=== PATIENT | male | born 1960 | race Caucasian/White ===

== ENCOUNTER 2020-03-14 05:11 | Emergency (ER) | payer MEDICAID ==
[2020-03-14] MEDS ORDERED: NA CHLORIDE 0.9% 1,000 ML ONE (05:52)
[2020-03-14] MEDS ORDERED: LIDOCAINE VISCOUS 2% SOLN 15 ML UDC ONE (05:56)
[2020-03-14 06:00] LABS: Absolute Lymphocytes (CBC) 1.5 K/uL (0.7-4.9); Basophils % 0.7 % (0-1.3); Hematocrit 37.5 % (39.6-49.0); MPV 8.7 fL (7.6-11.3); RBC Red Blood Cell Count 4.21 M/uL (4.33-5.43)
[2020-03-14 06:22] LABS: Urine Blood 3+ (NEG); Urine Glucose NEGATIVE (NEG); Urine Protein 3+ (NEG); Urine Specific Gravity >1.030 (1.005-1.030)
[2020-03-14 06:27] LABS: Potassium 4.1 mmol/L (3.5-5.1)
[2020-03-14 06:38] LABS: Albumin 3.5 g/dL (3.4-5.0); Bilirubin Direct 0.1 mg/dL (0-0.2); Bilirubin Total 0.6 mg/dL (0.2-1.0); Protein, Total 8.2 g/dL (6.4-8.2)
[2020-03-14] MEDS ORDERED: CEFTRIAXONE/SWI 1gm 1 GM/10 ML SYR ONE (06:47)
[2020-03-14 07:18] LABS: CKMB Creatine Kinase MB < 1.0 ng/mL (0.3-3.6); Creatine Phosphokinase 59 U/L (39-308); Troponin (Emerg Dept Use Only) < 0.02 ng/mL (0.0-0.045)
--- NOTE | 2020-03-14 07:40 | ER ---
Nurse's Notes Formerly [facility] Name: Taye Lagunas Age: 59 yrs Sex: Male : 1960 Arrival Date: 03/14/2020 Time: 05:13 Bed 2 Private MD: Diagnosis: Unspecified kidney failure-insufficency;Dementia in other diseases classified elsewhere;Type 2 diabetes mellitus;Displacement of urinary (indwelling) catheter-replaced Presentation: 03/14 05:15 Chief complaint: EMS states: pulled his Lang catheter last night. red fluid noted on rr5 the floor when we arrived. 05:15 Coronavirus screen: Proceed with normal triage. Ebola Screen: Unable to complete the rr5 Ebola screening because: dementia. Initial Sepsis Screen: Does the patient meet any 2 criteria? No. Patient's initial sepsis screen is negative. Does the patient have a suspected source of infection? No. Patient's initial sepsis screen is negative. Risk Assessment: Do you want to hurt yourself or someone else? Unable to obtain. Onset of symptoms was March 14, 2020. Transition of care: patient was received from another setting of care (long-term care facility), [facility]. 05:15 Method Of Arrival: EMS: [facility] rr5 05:15 Acuity: MADELINE 3 rr5 Historical: - Allergies: 05:00 No Known Allergies; rr5 - Home Meds: 05:00 amlodipine oral [Active]; Aspirin Oral [Active]; donepezil oral oral [Active]; rr5 duloxetine oral oral [Active]; Hydralazine Oral [Active]; Lipitor Oral [Active]; Lyrica Oral [Active]; nicotine patch [Active]; Novolog Sub-Q [Active]; Pyridoxine Oral [Active]; quetiapine oral oral [Active]; tamsulosin oral oral [Active]; Tramadol Oral [Active]; - PMHx: 05:00 Anxiety; restlessness and aggitation; cerebral infarction; Diabetes - IDDM; chronic rr5 kidney disease; vitamin b deficiency; Dementia; Depression; acquired coagulation factor deficiency; - Immunization history:: Adult Immunizations unknown. - Social history:: Smoking status: unknown. - Family history:: not pertinent. Screenin:37 Abuse screen: Denies threats or abuse. Denies injuries from another. Nutritional rr5 screening: No deficits noted. Tuberculosis screening: No symptoms or risk factors identified. Fall Risk Fall in past 12 months (25 points). Secondary diagnosis (15 points) dementia, impaired mobility, IV access (20 points). Mental Status- Overestimates/Forgets Limitations (15 pts.). Total Mcintosh Fall Scale indicates High Risk Score (45 or more points). Fall prevention measures have been instituted. Side Rails Up X 2 Placed Close to Nursing Station Frequent Obs/Assessments Occuring As available patient and family educated on Fall Prevention Program and Strategies. Assessment: 05:15 General: Appears in no apparent distress. Behavior is agitated, uncooperative, dementia rr5 patient. 05:15 Pain: Unable to use pain scale. Patient appears agitated. Neuro: Level of Consciousness rr5 is awake, confused, Oriented to person, dementia patient. Cardiovascular: Capillary refill < 3 seconds Patient's skin is warm and dry. Respiratory: Airway is patent Respiratory effort is even, unlabored, Respiratory pattern is regular, symmetrical. GI: No signs and/or symptoms were reported involving the gastrointestinal system. : Parent/caregiver report the patient having lang pulled by the patient. EENT: No signs and/or symptoms were reported regarding the EENT system. Derm: Skin is fragile, is thin, Skin temperature is warm. Musculoskeletal: Capillary refill < 3 seconds. 05:40 Reassessment: spoke to [facility] "yari" she stated patient had a Lang catheter rr5 because of dysuria came in the facility last february 28, 2020 with catheter in placed. the reason why the patient send in out facility because he pulled out the Lang catheter and patient became aggressive tonight. 06:10 Reassessment: Patient appears in no apparent distress at this time. No changes from rr5 previously documented assessment. patient keeps on shouting he is thirsty, needs attended, side rail secured and locked. 07:00 Reassessment: Patient appears in no apparent distress at this time. positive BM soft rr5 brown in color moderate in amount, diaper changed. PO challenge done , no nausea and no vomiting. 07:30 General: Appears in no apparent distress. comfortable, Behavior is agitated. Neuro: sv Level of Consciousness is awake, confused, Oriented to person. Respiratory: Respiratory effort is even, unlabored, Respiratory pattern is regular, symmetrical. 08:13 Reassessment: Siena from [facility] stated she is trying to get transportation for sv the pt to go back. 08:40 Reassessment: Siena called back and stated that they have no way to transport him. sv 09:05 Reassessment: Attempted to call Siena at [facility] to inform her wheelchair sv van is coming to take the pt but there was no answer. 09:30 Reassessment: Attempted to call [facility] again to inform pt will be coming by wheelchair van, no answer. 09:32 Reassessment: EMS here to take pt to [place]. sv Vital Signs: 05:15 BP 160 / 76; Pulse 81; Resp 20; Temp 98.5; Pulse Ox 100% ; Weight 95 kg; rr5 06:04 BP 168 / 85; Pulse 85; Resp 19; Pulse Ox 98% ; rr5 07:20 BP 142 / 88; Pulse 88; Resp 16; Pulse Ox 98% ; sv 09:15 BP 141 / 78; Pulse 86; Resp 16; Pulse Ox 99% ; sv ED Course: 05:00 Arm band placed on. rr5 05:13 Patient arrived in ED. cl3 05:16 Nash Raines, RN is Primary Nurse. rr5 05:21 Triage completed. rr5 05:43 Clarence Padgett MD is Attending Physician. amie 05:47 Inserted saline lock: 20 gauge in right antecubital area, using aseptic technique. mt Blood collected. 05:50 Patient has correct armband on for positive identification. Bed in low position. Call rr5 light in reach. Side rails up X2. Pulse ox on. NIBP on. 05:55 Lang cath inserted, using sterile technique, 16 Fr., by tn, balloon inflated, to rr5 gravity drainage, urine specimen collected. 06:10 EKG done, by ED staff, reviewed by Clarence Padgett MD. rr5 07:40 Matias Calderon MD is Referral Physician. amie 07:40 Dennis Moore MD is Referral Physician. amie 07:55 transfer transportation to receiving facility. sv 09:14 Primary Nurse role handed off by Nash Raines, RN sv 09:14 Natividad Billings, ANTHONY is Primary Nurse. sv 09:27 No provider procedures requiring assistance completed. IV discontinued, intact, sv bleeding controlled, No redness/swelling at site. Pressure dressing applied. Administered Medications: 06:00 Drug: NS 0.9% 500 ml Route: IV; Rate: bolus; Site: right antecubital; rr5 06:50 Follow up: Response: No adverse reaction; IV Status: Completed infusion; IV Intake: rr5 500ml 06:46 Drug: Rocephin 1 grams Route: IV; Rate: per protocol; Site: right antecubital; rr5 07:12 Follow up: Response: No adverse reaction; IV Status: Completed infusion; IV Intake: [id number] 07:03 Drug: NS 0.9% 500 ml Route: IV; Rate: bolus; Site: right antecubital; rr5 07:30 Follow up: Response: No adverse reaction; IV Status: Completed infusion; IV Intake: sv 500ml Intake: 06:00 PO: 450ml (Water); Total: 450ml. rr5 06:50 IV: 500ml; Total: 950ml. rr5 06:55 PO: 300ml (Water); Total: 1250ml. rr5 07:12 IV: 10ml; Total: 1260ml. rr5 07:30 IV: 500ml; Total: 1760ml. sv Output: 07:00 Stool: 1 (Formed Stool) ; Total: 0ml. rr5 Outcome: 07:40 Discharge ordered by . amie 07:42 Discharged to senior living. Report called to Siena at [facility] sv 07:42 Condition: stable 07:42 Discharge instructions given to senior living, Instructed on discharge instructions, follow up and referral plans. Demonstrated understanding of instructions, follow-up care. 09:33 Patient left the ED. sv Signatures: Natividad Billings, RN RN Clarence Breen MD MD cha Thompson, [place] Nash Evans RN RN rrTin Canseco cl3
--- NOTE | 2020-03-14 07:41 | EDPHYS ---
Physician Documentation [facility] Name: Taye Lagunas Age: 59 yrs Sex: Male : 1960 Arrival Date: 03/14/2020 Time: 05:13 Bed 2 Private MD: EDA Physician Clarence Padgett HPI: 03/14 05:45 This 59 yrs old Male presents to ER via EMS with complaints of Problem With amie Urinary Catheter. 05:45 The patient presents with a Castillo catheter problem, was pulled out accidentally. Onset: amie The symptoms/episode began/occurred 1 day(s) ago. Modifying factors: The symptoms are alleviated by nothing, the symptoms are aggravated by nothing. in group home, hx of dementia, no head trauma. Associated signs and symptoms: Pertinent positives: thirsty. Severity of symptoms: At their worst the symptoms were mild, in the emergency department the symptoms are unchanged. Severity of symptoms: At their worst the symptoms were mild in the emergency department the symptoms are unchanged. It is unknown whether or not the patient has had similar symptoms in the past. Historical: - Allergies: 05:00 No Known Allergies; rr5 - Home Meds: 05:00 amlodipine oral [Active]; Aspirin Oral [Active]; donepezil oral oral [Active]; rr5 duloxetine oral oral [Active]; Hydralazine Oral [Active]; Lipitor Oral [Active]; Lyrica Oral [Active]; nicotine patch [Active]; Novolog Sub-Q [Active]; Pyridoxine Oral [Active]; quetiapine oral oral [Active]; tamsulosin oral oral [Active]; Tramadol Oral [Active]; - PMHx: 05:00 Anxiety; restlessness and aggitation; cerebral infarction; Diabetes - IDDM; chronic rr5 kidney disease; vitamin b deficiency; Dementia; Depression; acquired coagulation factor deficiency; - Immunization history:: Adult Immunizations unknown. - Social history:: Smoking status: unknown. - Family history:: not pertinent. ROS: 05:45 Constitutional: Negative for fever, chills, and weight loss, ENT: Negative for injury, amie pain, and discharge, Neck: Negative for injury, pain, and swelling, Cardiovascular: Negative for chest pain, palpitations, and edema, Respiratory: Negative for shortness of breath, cough, wheezing, and pleuritic chest pain, Abdomen/GI: Negative for abdominal pain, nausea, vomiting, diarrhea, and constipation, Back: Negative for injury and pain, : Negative for injury, bleeding, discharge, and swelling, MS/Extremity: Negative for injury and deformity, Skin: Negative for injury, rash, and discoloration, Psych: Negative for depression, anxiety, suicide ideation, homicidal ideation, and hallucinations, Allergy/Immunology: Negative for hives, rash, and allergies, Endocrine: Negative for neck swelling, polydipsia, polyuria, polyphagia, and marked weight changes, Hematologic/Lymphatic: Negative for swollen nodes, abnormal bleeding, and unusual bruising. 05:45 Neuro: Positive for altered mental status, hx of dementia. Exam: 05:45 Constitutional: This is a well developed, well nourished patient who is awake, alert, amie and in no acute distress. Head/Face: Normocephalic, atraumatic. ENT: Nares patent. No nasal discharge, no septal abnormalities noted. Tympanic membranes are normal and external auditory canals are clear. Oropharynx with no redness, swelling, or masses, exudates, or evidence of obstruction, uvula midline. Mucous membranes moist. Neck: Trachea midline, no thyromegaly or masses palpated, and no cervical lymphadenopathy. Supple, full range of motion without nuchal rigidity, or vertebral point tenderness. No Meningismus. Chest/axilla: Normal chest wall appearance and motion. Nontender with no deformity. No lesions are appreciated. Cardiovascular: Regular rate and rhythm with a normal S1 and S2. No gallops, murmurs, or rubs. Normal PMI, no JVD. No pulse deficits. Respiratory: Lungs have equal breath sounds bilaterally, clear to auscultation and percussion. No rales, rhonchi or wheezes noted. No increased work of breathing, no retractions or nasal flaring. Abdomen/GI: Soft, non-tender, with normal bowel sounds. No distension or tympany. No guarding or rebound. No evidence of tenderness throughout. Back: No spinal tenderness. No costovertebral tenderness. Full range of motion. Male : Normal genitalia with no discharge or lesions. Skin: Warm, dry with normal turgor. Normal color with no rashes, no lesions, and no evidence of cellulitis. 05:45 Eyes: eyes matted shut. 07:05 ECG was reviewed by the Attending Physician. [facility] Vital Signs: 05:15 BP 160 / 76; Pulse 81; Resp 20; Temp 98.5; Pulse Ox 100% ; Weight 95 kg; rr5 06:04 BP 168 / 85; Pulse 85; Resp 19; Pulse Ox 98% ; rr5 07:20 BP 142 / 88; Pulse 88; Resp 16; Pulse Ox 98% ; sv 09:15 BP 141 / 78; Pulse 86; Resp 16; Pulse Ox 99% ; sv MDM: 05:51 Patient medically screened. [facility] 07:02 Data reviewed: vital signs, nurses notes, lab test result(s), EKG, radiologic studies. [facility] 03/14 05:39 Order name: CBC with Diff; Complete Time: 06:23 rr5 03/14 05:39 Order name: BMP; Complete Time: 06:58 rr5 03/14 05:44 Order name: Urine Culture [facility] 03/14 05:46 Order name: LFT's; Complete Time: 06:58 lp1 03/14 05:50 Order name: Ckmb; Complete Time: 07:34 [facility] 03/14 05:50 Order name: CK; Complete Time: 07:34 [facility] 03/14 05:39 Order name: IV Saline Lock; Complete Time: 05:47 rr5 03/14 05:50 Order name: EKG; Complete Time: 05:51 [facility] 03/14 05:50 Order name: Troponin (emerg Dept Use Only); Complete Time: 07:34 [facility] 03/14 05:54 Order name: Glucose, Ancillary Testing; Complete Time: 06:23 EDMS 03/14 06:02 Order name: Urine Dipstick--Ancillary (enter results); Complete Time: 06:23 ar5 03/14 05:44 Order name: Urine Dipstick-Ancillary (obtain specimen); Complete Time: 06:00 [facility] 03/14 05:44 Order name: Castillo; Complete Time: 06:00 [facility] 03/14 05:44 Order name: Wound Care; Complete Time: 06:00 [facility] 03/14 05:50 Order name: EKG - Nurse/Tech; Complete Time: 06:10 [facility] 03/14 07:01 Order name: PO challenge; Complete Time: 07:03 [facility] EC:05 Rate is 71 beats/min. Rhythm is regular. QRS [place] is Normal. CO interval is normal. QRS amie interval is normal. QT interval is normal. No Q waves. T waves are Normal. No ST changes noted. Clinical impression: NSR w/ Non-specific ST/T Changes and No evidence of ischemia. Interpreted by me. Reviewed by me. Administered Medications: 06:00 Drug: NS 0.9% 500 ml Route: IV; Rate: bolus; Site: right antecubital; rr5 06:50 Follow up: Response: No adverse reaction; IV Status: Completed infusion; IV Intake: rr5 500ml 06:46 Drug: Rocephin 1 grams Route: IV; Rate: per protocol; Site: right antecubital; rr5 07:12 Follow up: Response: No adverse reaction; IV Status: Completed infusion; IV Intake: [id number] 07:03 Drug: NS 0.9% 500 ml Route: IV; Rate: bolus; Site: right antecubital; rr5 07:30 Follow up: Response: No adverse reaction; IV Status: Completed infusion; IV Intake: sv 500ml Disposition: 03/14/20 07:40 Discharged to Home. Impression: Unspecified kidney failure - insufficency, Dementia in other diseases classified elsewhere, Type 2 diabetes mellitus, Displacement of urinary (indwelling) catheter - replaced. - Condition is Stable. - Discharge Instructions: Dementia, Type 2 Diabetes Mellitus, Diagnosis, Adult, Vascular Dementia, Chronic Kidney Disease, Adult, [id number], Type 2 Diabetes Mellitus, Diagnosis, Adult, [id number], Dementia, [id number]. - Medication Reconciliation Form, Thank You Letter, Antibiotic Education, Prescription Opioid Use form. - Follow up: Private Physician; When: 2 - 3 days; Reason: Recheck today's complaints, Continuance of care, Re-evaluation by your physician. Follow up: Matias Calderon MD; When: 2 - 3 days; Reason: Recheck today's complaints, Re-evaluation by your physician. Follow up: Dennis Moore MD; When: 2 - 3 days; Reason: Recheck today's complaints, Re-evaluation by your physician. - Problem is new. - Symptoms have improved. Signatures: Dispatcher [employer] Natividad Mosley RN RN sv Anderson, Corey, MD MD cha Roque, Raymond RN RN rr5 Corrections: (The following items were deleted from the chart) 09:33 07:40 03/14/2020 07:40 Discharged to Home. Impression: Unspecified kidney failure - sv insufficency; Dementia in other diseases classified elsewhere; Type 2 diabetes mellitus; Displacement of urinary (indwelling) catheter - replaced. Condition is Stable. Forms are Medication Reconciliation Form, Thank You Letter, Antibiotic Education, Prescription Opioid Use. Follow up: Private Physician; When: 2 - 3 days; Reason: Recheck today's complaints, Continuance of care, Re-evaluation by your physician. Follow up: Matias Calderon; When: 2 - 3 days; Reason: Recheck today's complaints, Re-evaluation by your physician. Follow up: Dennis Moore; When: 2 - 3 days; Reason: Recheck today's complaints, Re-evaluation by your physician. Problem is new. Symptoms have improved. amie
--- NOTE | 2020-03-14 08:04 | EKG ---
Test Date: 2020-03-14 Test Time: 06:11:15 A P Mechanic: JEROME MEASUREMENT RESULTS: Intervals: Rate: 71 [place]: 164 QRSD: 96 QT: 396 QTc: 430 Clements: P: 19 AZ: 164 QRS: 21 T: 43 INTERPRETIVE STATEMENTS: Normal sinus rhythm Normal ECG No previous ECG available for comparison Electronically Signed On 03-14-20 08:03:47 CDT by Brennon Munoz
[2020-03-14 09:42] VITALS: TEMP 98.5
[2020-03-14 09:44] VITALS: BP 168/85; O2SAT 98
== END 2020-03-14 09:33 | disposition home or self-care (01) ==
LOC: ER 05:11
DX: T83.021A Displacement of indwelling urethral catheter, initial encounter (principal); E11.9 Type 2 diabetes mellitus without complications; Z79.4 Long term (current) use of insulin; N19 Unspecified kidney failure; F03.90 Unspecified dementia, unspecified severity, without behavioral disturbance, psychotic disturbance, mood disturbance, and anxiety; Z86.73 Personal history of transient ischemic attack (TIA), and cerebral infarction without residual deficits
CPT/HCPCS: 96365; 96361; 93005; 87088; 85025; 87086; 80048; 36415; 82550; 82947; 80076; 81003; 84484; 82553; 51702; 99285; J0696; J7030; 87077; 87186

== ENCOUNTER 2020-04-02 12:04 | Emergency (ER) | payer MEDICAID ==
[2020-04-02 13:05] LABS: Absolute Lymphocytes (CBC) 2.9 K/uL (0.7-4.9); Lymphocytes % 32.2 % (15.3-44.8); MPV 8.8 fL (7.6-11.3); RBC Red Blood Cell Count 3.36 M/uL (4.33-5.43)
[2020-04-02 13:16] LABS: Potassium 4.5 mmol/L (3.5-5.1)
--- NOTE | 2020-04-02 13:19 | RAD REPORT ---
EXAM DESCRIPTION: CT - Spine Lumbar Wo Con - 04/02/2020 1:05 pm CLINICAL HISTORY: Radiculopathy. LOWER BACK PAIN COMPARISON: No comparisons TECHNIQUE: Axial noncontrast CT imaging of the lumbar spine was performed with coronal and sagittal re-formatted images. All CT scans are performed using dose optimization technique as appropriate and may include automated exposure control or mA/KV adjustment according to patient size. FINDINGS: No acute lumbar spine fracture seen. No aggressive marrow pattern or malalignment. Inciden tally noted is a healing fracture of the right posterior eleventh rib. Paraspinal tissues are normal in thickness. No paraspinal abscess or hematoma seen. Multilevel posterior disc bulging is present compatible with moderate lower lumbar spondylosis. Mild canal narrowing is suspected lower lumbar levels. IMPRESSION: No acute lumbar spine abnormality is discerned. Moderate lower lumbar spondylosis.
--- NOTE | 2020-04-02 15:30 | EDPHYS ---
Physician Documentation [facility] Name: Taye Lagunas Age: 59 yrs Sex: Male : 1960 Arrival Date: 04/02/2020 Time: 12:10 Bed 19 Private MD: ED Physician Beck Orozco HPI: 04/02 18:18 This 59 yrs old Male presents to ER via EMS with complaints of Back Pain. kdr 18:18 The patient presents with pain that is acute. The symptoms are located in the low back. kdr Onset: The symptoms/episode began/occurred suddenly, just prior to arrival, today. The pain does not radiate. Associated signs and symptoms: The patient has no apparent associated signs or symptoms, Pertinent positives: The patient has ecchymosis of the right flank. The problem was sustained Fell out of bed. Modifying factors: The patient symptoms are alleviated by remaining still, the patient symptoms are aggravated by any movement. Severity of symptoms: At their worst the symptoms were mild, in the emergency department the symptoms are unchanged. The patient has experienced similar episodes in the past, multiple times, chronically. The patient has not recently seen a physician. Historical: - Allergies: 12:18 No Known Allergies; ah - PMHx: 12:18 acquired coagulation factor deficiency; Anxiety; Cerebral infarction; chronic kidney ah disease; Dementia; Depression; Diabetes - IDDM; restlessness and aggitation; vitamin b deficiency; - PSHx: 12:18 None; ah - Immunization history:: Adult Immunizations up to date. - Social history:: Smoking status: Patient reports the use of cigarette tobacco products, unknown amount Patient/guardian denies using alcohol. ROS: 18:18 Constitutional: Negative for fever, chills, and weight loss, Eyes: Negative for injury, kdr pain, redness, and discharge, Neck: Negative for injury, pain, and swelling, Cardiovascular: Negative for chest pain, palpitations, and edema, Respiratory: Negative for shortness of breath, cough, wheezing, and pleuritic chest pain, Abdomen/GI: Negative for abdominal pain, nausea, vomiting, diarrhea, and constipation, Back: Negative for injury and pain, MS/Extremity: Negative for injury and deformity, Skin: Negative for injury, rash, and discoloration, Neuro: Negative for headache, weakness, numbness, tingling, and seizure activity. Psych: Negative for depression, anxiety, suicide ideation, homicidal ideation, and hallucinations, Allergy/Immunology: Negative for hives, rash, and allergies, Endocrine: Negative for neck swelling, polydipsia, polyuria, polyphagia, and marked weight changes, Hematologic/Lymphatic: Negative for swollen nodes, abnormal bleeding, and unusual bruising. Exam: 18:18 Constitutional: This is a well developed, well nourished patient who is awake, alert, kdr and in no acute distress. Head/Face: Normocephalic, atraumatic. Eyes: Pupils equal round and reactive to light, extra-ocular motions intact. Lids and lashes normal. Conjunctiva and sclera are non-icteric and not injected. Cornea within normal limits. Periorbital areas with no swelling, redness, or edema. Neck: Trachea midline, no thyromegaly or masses palpated, and no cervical lymphadenopathy. Supple, full range of motion without nuchal rigidity, or vertebral point tenderness. No Meningismus. Chest/axilla: Normal chest wall appearance and motion. Nontender with no deformity. No lesions are appreciated. Cardiovascular: Regular rate and rhythm with a normal S1 and S2. No gallops, murmurs, or rubs. Normal PMI, no JVD. No pulse deficits. Respiratory: Lungs have equal breath sounds bilaterally, clear to auscultation and percussion. No rales, rhonchi or wheezes noted. No increased work of breathing, no retractions or nasal flaring. Abdomen/GI: Soft, non-tender, with normal bowel sounds. No distension or tympany. No guarding or rebound. No evidence of tenderness throughout. MS/ Extremity: Pulses equal, no cyanosis. Neurovascular intact. Full, normal range of motion. Neuro: Awake and alert, GCS 15, oriented to person, place, time, and situation. Cranial nerves II-XII grossly intact. Motor strength 5/5 in all extremities. Sensory grossly intact. Cerebellar exam normal. Normal gait. Psych: Awake, alert, with orientation to person, place and time. Behavior, mood, and affect are within normal limits. 18:18 Back: pain, that is mild, of the sacrum. Vital Signs: 11:51 BP 145 / 75; Pulse 72; Resp 18; Temp 97.8; Pulse Ox 98% ; ah 12:16 Weight 95 kg; 12:30 BP 152 / 72; Pulse 67; Resp 18; Pulse Ox 97% ; ah 14:00 BP 124 / 87; Pulse 71; Resp 16; Pulse Ox 97% ; ah 15:00 BP 118 / 55; Pulse 56; Resp 16; Pulse Ox 98% ; ah MDM: 15:29 Patient medically screened. [facility] 18:46 Data reviewed: vital signs, nurses notes, radiologic studies. Counseling: I had a [facility] detailed discussion with the patient and/or guardian regarding: the historical points, exam findings, and any diagnostic results supporting the discharge/admit diagnosis, radiology results, the need for outpatient follow up. 04/02 12:37 Order name: CBC with Diff; Complete Time: 15:27 [facility] 04/02 12:37 Order name: Chem 7; Complete Time: 15:27 [facility] 04/02 12:37 Order name: Urine Dipstick-Ancillary (obtain specimen); Complete Time: 14:00 [facility] 04/02 12:49 Order name: CT Lumbar Spine Wo Con; Complete Time: 15:27 [facility] 04/02 15:22 Order name: Urine Dipstick--Ancillary (enter results) em1 Administered Medications: No medications were administered Disposition: 04/02/20 15:29 Discharged to Home. Impression: Low back pain. - Condition is Stable. - Discharge Instructions: Musculoskeletal Pain, Back Pain, Adult, [id number]. - Prescriptions for Ibuprofen 600 mg Oral Tablet - take 1 tablet by ORAL route every 6 hours As needed take with food; 30 tablet. - Medication Reconciliation Form, Thank You Letter form. - Follow up: Private Physician; When: 2 - 3 days; Reason: If symptoms return, Further diagnostic work-up, Recheck today's complaints, Continuance of care, Re-evaluation by your physician. - Problem is new. - Symptoms have improved. Signatures: Dispatcher [employer] EDMS Beck Orozco MD MD kdr Cher Roth RN RN Corrections: (The following items were deleted from the chart) 16:29 15:29 04/02/2020 15:29 Discharged to Home. Impression: Low back pain. Condition is ah Stable. Forms are Medication Reconciliation Form, Thank You Letter, Antibiotic Education, Prescription Opioid Use. Follow up: Private Physician; When: 2 - 3 days; Reason: If symptoms return, Further diagnostic work-up, Recheck today's complaints, Continuance of care, Re-evaluation by your physician. Problem is new. Symptoms have improved. kdr
--- NOTE | 2020-04-02 15:30 | ER ---
Nurse's Notes [facility] Name: Taye Lagunas Age: 59 yrs Sex: Male : 1960 Arrival Date: 04/02/2020 Time: 12:10 Bed 19 Private MD: Diagnosis: Low back pain Presentation: 04/02 11:51 Chief complaint: EMS states: nurse from facility states that Pt was found on the floor. Pt denies fall. He states that he was crawling to the restroom. Pt c/o back pain and right knee pain. Coronavirus screen: Proceed with normal triage. Ebola Screen: No symptoms or risks identified at this time. Initial Sepsis Screen: Does the patient meet any 2 criteria? Yes Does the patient have a suspected source of infection? No. Patient's initial sepsis screen is negative. Risk Assessment: Do you want to hurt yourself or someone else? Patient reports no desire to harm self or others. Onset of symptoms was April 02, 2020. 11:51 Method Of Arrival: EMS: [facility] 11:51 Acuity: MADELINE 3 Triage Assessment: 12:19 General: Appears. Historical: - Allergies: 12:18 No Known Allergies; - PMHx: 12:18 acquired coagulation factor deficiency; Anxiety; Cerebral infarction; chronic kidney ah disease; Dementia; Depression; Diabetes - IDDM; restlessness and aggitation; vitamin b deficiency; - PSHx: 12:18 None; - Immunization history:: Adult Immunizations up to date. - Social history:: Smoking status: Patient reports the use of cigarette tobacco products, unknown amount Patient/guardian denies using alcohol. Screenin:19 Abuse screen: Denies threats or abuse. Nutritional screening: No deficits noted. Tuberculosis screening: No symptoms or risk factors identified. Fall Risk None identified. Assessment: 12:19 General: Appears in no apparent distress. Behavior is cooperative. Pain: Complains of pain in right knee and back. 12:19 Neuro: Level of Consciousness is awake, alert, Oriented to person, place, situation. Cardiovascular: Capillary refill < 3 seconds Patient's skin is warm and dry. Respiratory: Airway is patent Respiratory effort is even, unlabored. GI:. : Castillo in place Urine is clear. Derm: Skin is intact, is healthy with good turgor. 13:30 Reassessment: Patient and/or family updated on plan of care and expected duration. Pain ah level reassessed. Patient is alert, oriented x 3, equal unlabored respirations, skin warm/dry/pink. 14:30 Reassessment: Patient and/or family updated on plan of care and expected duration. Pain ah level reassessed. Patient is alert, oriented x 3, equal unlabored respirations, skin warm/dry/pink. awaiting on lab and radiology results. 15:45 Reassessment: Discharge instructions given to pt. Called [facility] facility and they stated ah they will send transportation with his WC. Vital Signs: 11:51 BP 145 / 75; Pulse 72; Resp 18; Temp 97.8; Pulse Ox 98% ; ah 12:16 Weight 95 kg; ah 12:30 BP 152 / 72; Pulse 67; Resp 18; Pulse Ox 97% ; ah 14:00 BP 124 / 87; Pulse 71; Resp 16; Pulse Ox 97% ; ah 15:00 BP 118 / 55; Pulse 56; Resp 16; Pulse Ox 98% ; ah ED Course: 12:10 Patient arrived in ED. 12:11 Cher Roth, RN is Primary Nurse. 12:13 Beck Orozco MD is Attending Physician. kdr 12:15 Triage completed. 12:21 Arm band placed on right wrist. 12:21 Patient has correct armband on for positive identification. Placed in gown. Bed in low ah position. Call light in reach. Side rails up X 1. Pulse ox on. NIBP on. 12:45 Inserted saline lock: 20 gauge in right antecubital area, using aseptic technique. 13:05 CT Lumbar Spine Wo Con In Process Unspecified. EDMS 16:15 No provider procedures requiring assistance completed. IV discontinued, intact, ah bleeding controlled, No redness/swelling at site. Pressure dressing applied. Administered Medications: No medications were administered Outcome: 15:29 Discharge ordered by . kdr 16:27 Discharged to care home. 16:27 Condition: good 16:27 Discharge instructions given to patient, Instructed on discharge instructions, follow up and referral plans. Demonstrated understanding of instructions, follow-up care, medications, Prescriptions given X 1. 16:29 Patient left the ED. Signatures: Dispatcher [employer] EDOK Beck Orozco MD MD kdr Cher Roth, RN RN
[2020-04-02 15:47] LABS: Urine Blood TRACE (NEG); Urine Glucose TRACE (NEG); Urine Protein 3+ (NEG); Urine Specific Gravity 1.025 (1.005-1.030)
[2020-04-02 16:39] VITALS: BP 118/55; O2SAT 98
== END 2020-04-02 16:29 | disposition home or self-care (01) ==
LOC: ER 12:04
DX: M54.5 Low back pain (principal); F03.90 Unspecified dementia, unspecified severity, without behavioral disturbance, psychotic disturbance, mood disturbance, and anxiety; Z86.73 Personal history of transient ischemic attack (TIA), and cerebral infarction without residual deficits
CPT/HCPCS: 36415; 72131; 80048; 81003; 85025; 99284

== ENCOUNTER 2020-10-01 22:27 | Emergency (ER) | payer MEDICAID ==
[2020-10-01 23:22] LABS: Absolute Lymphocytes (CBC) 2.9 K/uL (0.7-4.9); Basophils % 0.3 % (0-1.3); Hematocrit 34.6 % (39.6-49.0); Lymphocytes % 26.3 % (15.3-44.8); RBC Red Blood Cell Count 3.87 M/uL (4.33-5.43)
[2020-10-01 23:26] LABS: Potassium 4.2 mmol/L (3.5-5.1)
[2020-10-02] MEDS ORDERED: NA CHLORIDE 0.9% 500 ML ONE (00:12)
--- NOTE | 2020-10-02 01:22 | ER ---
Nurse's Notes [facility] Name: Taye Lagunas Age: 59 yrs Sex: Male : 1960 Arrival Date: 10/01/2020 Time: 22:30 Bed 4 Private MD: Venkat Woods Diagnosis: Restlessness and agitation Presentation: 10/01 22:45 Chief complaint: EMS states: came from [facility],on scene patient having commotion rr5 with the chief scientific officer in the nurses station. patient is combative threatening to kill himself and others. 22:45 Coronavirus screen: Client denies travel out of the [place] in the last 14 days. At this rr5 time, the client does not indicate any symptoms associated with coronavirus-19. Ebola Screen: Patient negative for fever greater than or equal to 101.5 degrees Fahrenheit, and additional compatible Ebola Virus Disease symptoms Patient denies exposure to infectious person. Patient denies travel to an Ebola-affected area in the 21 days before illness onset. Initial Sepsis Screen: Does the patient meet any 2 criteria? No. Patient's initial sepsis screen is negative. Does the patient have a suspected source of infection? No. Patient's initial sepsis screen is negative. Risk Assessment: Do you want to hurt yourself or someone else? Patient reports desire/thoughts of hurting themselves or someone else. Provider notified. Onset of symptoms was October 01, 2020. 22:45 Method Of Arrival: EMS: [facility] rr5 22:45 Acuity: MADELINE 2 rr5 22:45 Note EMS stated he got the acceptance in carrier clinic. rr5 Historical: - Allergies: 22:52 No Known Allergies; rr5 - Home Meds: 22:52 amlodipine oral [Active]; Aspirin Oral [Active]; Hydralazine Oral [Active]; Lipitor rr5 Oral [Active]; duloxetine Oral [Active]; donepezil Oral [Active]; Lyrica Oral [Active]; nicotine patch [Active]; Novolog Sub-Q [Active]; Pyridoxine Oral [Active]; quetiapine Oral [Active]; tamsulosin Oral [Active]; Tramadol Oral [Active]; 22:57 amlodipine 5 mg oral tab once daily [Active]; aspirin 81 mg oral chew 1 tab once daily sg [Active]; hydralazine 10 mg oral tab [Active]; tamsulosin 0.4 mg oral cp24 1 cap once daily [Active]; metformin 850 mg Oral tab 1 tab 2 times per day [Active]; Januvia 25 mg oral tab daily [Active]; Lantus 100 unit/mL Sub-Q soln daily [Active]; Lipitor 10 mg Oral tab 1 tab once daily [Active]; Lyrica 150 mg Oral 1 cap 2 times per day [Active]; Nicoderm CQ 7 mg/24 hr transdermal pt24 1 patch once daily [Active]; Protonix 40 mg Oral TbEC 1 tab once daily [Active]; Seroquel 200 mg Oral tab [Active]; sertraline oral 150 mg oral once daily [Active]; acetaminophen 325 mg Oral tab 2 tabs [Active]; - PMHx: 22:52 acquired coagulation factor deficiency; Anxiety; Cerebral infarction; chronic kidney rr5 disease; Dementia; Depression; Diabetes - IDDM; restlessness and aggitation; vitamin b deficiency; 22:57 acquired coagulation factor deficiency; Anxiety; Cerebral infarction; chronic kidney sg disease; Dementia; Depression; Diabetes - IDDM; restlessness and aggitation; vitamin b deficiency; 22:52 Schizophrenia; rr5 - PSHx: 22:57 None; sg - Immunization history:: Adult Immunizations unknown. - Social history:: Smoking status: unknown. - Family history:: not pertinent. - Hospitalizations: : No recent hospitalization is reported. Screenin:54 Abuse screen: Denies threats or abuse. Denies injuries from another. Nutritional rr5 screening: No deficits noted. Tuberculosis screening: No symptoms or risk factors identified. Fall Risk IV access (20 points). Mental Status- Overestimates/Forgets Limitations (15 pts.). Total Mcintosh Fall Scale indicates Low Risk Score (25-44 pts). Fall prevention measures have been instituted. Side Rails Up X 2 Frequent Obs/Assesments occuring As available Patient and Family Educated on Fall Prevention Program and strategies. Assessment: 22:47 Reassessment: Devorah, Primary nurse at [facility] states that this patient has acceptance for sg treatment at [facility] in [place], [place]. No transport available until morning time, pt was combative with staff and refusing to take medications for agitation, so they called EMS for patient transport to the ED. Reassessment: Spoke with Farzana at [facility], who states that after the patient is medically cleared they are prepared to accept the patient for at their facility. 22:58 Reassessment: Alix STEVENSON contact is [phone]. sg 23:00 General: Appears in no apparent distress. comfortable, Behavior is calm. rr5 23:00 Pain: Denies pain. Neuro: Level of Consciousness is awake, alert, Oriented to person. rr5 Cardiovascular: Capillary refill < 3 seconds Patient's skin is warm and dry. Respiratory: Airway is patent Respiratory effort is even, unlabored, Respiratory pattern is regular, symmetrical. GI: No signs and/or symptoms were reported involving the gastrointestinal system. : No signs and/or symptoms were reported regarding the genitourinary system. EENT: No signs and/or symptoms were reported regarding the EENT system. Derm: Skin is fragile, is thin, Skin temperature is warm Decubitus located on sacrum approximately 2.6 cm to 7.5 cm is stage II. Musculoskeletal: Capillary refill < 3 seconds. 10/02 00:00 Reassessment: Patient appears in no apparent distress at this time. awaiting fo results.rr5 01:00 Reassessment: Patient appears in no apparent distress at this time. urine sent to [facility], patient pulled out his IV cannula and removed the BP cuff. 01:20 Reassessment: [facility] staff [phone] informed patient is for discharge rr5 and need for transport. she said our transport starts on business hour around 0800H. 02:00 Reassessment: charge nurse spoke to [facility], agreed from both sides patient will rr5 go back to facility after the night time medications to be given. ED provider informed by charge nurse and agreed for the plan. 02:47 Reassessment: [facility] staff informed patient is coming back to their place.rr5 03:15 Reassessment: Patient appears in no apparent distress at this time. report given to [facility] awake alert. vital signs taken and recorded. Vital Signs: 10/01 22:45 BP 153 / 88; Pulse 99; Resp 17; Temp 98; Pulse Ox 100% ; Weight 79.38 kg; Height 5 ft. rr5 7 in. (170.18 cm); Pain 0/10; 10/02 00:00 BP 151 / 79; Pulse 95; Resp 16; Pulse Ox 100% ; rr5 01:00 BP 142 / 85; Pulse 85; Resp 16; Pulse Ox 99% ; rr5 02:00 BP 133 / 85; Pulse 80; Resp 19; Pulse Ox 99% ; rr5 03:00 BP 139 / 80; Pulse 85; Resp 18; Temp 98; Pulse Ox 98% ; rr5 10/01 22:45 Body Mass Index 27.41 (79.38 kg, 170.18 cm) rr5 ED Course: 10/01 22:30 Patient arrived in ED. mw2 22:33 Yovanny Grant MD is Attending Physician. rn 22:45 Nash Raines RN is Primary Nurse. rr5 22:50 [facility]. sg 22:50 Triage completed. rr5 22:51 [facility] Phys[facility]. sg 22:52 [facility] Physician. sg 22:53 Arm band placed on left wrist. rr5 23:00 Patient has correct armband on for positive identification. Placed in gown. Bed in low rr5 position. Call light in reach. Side rails up X2. 23:00 surveillance monitor on. Pulse ox on. NIBP on. rr5 23:20 Inserted saline lock: 20 gauge in left antecubital area, using aseptic technique. Blood rr5 collected. 10/02 01:00 No provider procedures requiring assistance completed. IV discontinued, intact, rr5 bleeding controlled, No redness/swelling at site. Pressure dressing applied, removed IV by patient. 01:10 Urine collected: clean catch specimen, clear. rr5 01:16 [facility] stated the patient has mw2 to be medically cleared. Administered Medications: 00:00 Drug: NS 0.9% 500 ml Route: IV; Rate: bolus; Site: left antecubital; rr5 00:50 Follow up: Response: No adverse reaction; IV Status: Completed infusion; IV Intake: rr5 500ml 02:19 Drug: traZODONE 150 mg Route: PO; rr5 02:52 Follow up: Response: No adverse reaction rr5 02:19 Drug: SEROquel 200 mg Route: PO; rr5 02:52 Follow up: Response: No adverse reaction rr5 Intake: 00:50 IV: 500ml; Total: 500ml. rr5 Output: 01:05 Urine: 900ml; Total: 900ml. rr5 Outcome: 01:22 Discharge ordered by . rn 03:21 Discharged to home ambulatory. rr5 03:21 Condition: stable 03:21 Discharge instructions given to EMS, Instructed on discharge instructions, follow up and referral plans. Demonstrated understanding of instructions, follow-up care. 03:25 Patient left the ED. rr5 Signatures: Cyril Wood RN RN sg Nieto, Roman, MD MD rn [place], MyKena 2 Nash Raiens RN RN rr5 Corrections: (The following items were deleted from the chart) 01:18 01:10 Urine collected: clean catch specimen, clear, rr5 rr5 01:18 01:00 IV discontinued, removed IV by patient rr5 rr5 01:38 12/10 22:57 Allergies: No Known Allergies; rr5 10/02 03:20 03:00 BP 139 / 80; Pulse 85bpm; Resp 18bpm; Pulse Ox 98%; rr5 rr5
--- NOTE | 2020-10-02 01:22 | EDPHYS ---
Physician Documentation [facility] Name: Taye Lagunas Age: 59 yrs Sex: Male : 1960 Arrival Date: 10/01/2020 Time: 22:30 Bed 4 Private MD: Venkat Woods ED Physician Yovanny Grant HPI: 10/01 23:10 This 59 yrs old Male presents to ER via EMS with complaints of agitation. rn 23:10 The patient presents with agitation. Onset: The symptoms/episode began/occurred at an rn unknown time. Possible causes: unknown. Associated signs and symptoms: Pertinent positives: agitation, Pertinent negatives: abdominal pain, chest pain, confusion, headache, numbness, seizure, shortness of breath, vomiting, weakness. Current symptoms: In the emergency department the patient's symptoms have improved. It is unknown whether or not the patient has had similar symptoms in the past. The patient has not recently seen a physician. Per report, patient has bed at Loc[facility], is supposed to be transferred in AM, but snf did not believe could wait until AM. Called police who told them to call 911. Patient denies any medical complaints. States takes meds but doesn't know what he takes. Pleasant and cooperative here. No fever/chest pain/sob/abd pain/vomiting/diarrhea/focal neuro complaint. . Historical: - Allergies: 22:52 No Known Allergies; rr5 - Home Meds: 22:52 amlodipine oral [Active]; Aspirin Oral [Active]; Hydralazine Oral [Active]; Lipitor rr5 Oral [Active]; duloxetine Oral [Active]; donepezil Oral [Active]; Lyrica Oral [Active]; nicotine patch [Active]; Novolog Sub-Q [Active]; Pyridoxine Oral [Active]; quetiapine Oral [Active]; tamsulosin Oral [Active]; Tramadol Oral [Active]; 22:57 amlodipine 5 mg oral tab once daily [Active]; aspirin 81 mg oral chew 1 tab once daily sg [Active]; hydralazine 10 mg oral tab [Active]; tamsulosin 0.4 mg oral cp24 1 cap once daily [Active]; metformin 850 mg Oral tab 1 tab 2 times per day [Active]; Januvia 25 mg oral tab daily [Active]; Lantus 100 unit/mL Sub-Q soln daily [Active]; Lipitor 10 mg Oral tab 1 tab once daily [Active]; Lyrica 150 mg Oral 1 cap 2 times per day [Active]; Nicoderm CQ 7 mg/24 hr transdermal pt24 1 patch once daily [Active]; Protonix 40 mg Oral TbEC 1 tab once daily [Active]; Seroquel 200 mg Oral tab [Active]; sertraline oral 150 mg oral once daily [Active]; acetaminophen 325 mg Oral tab 2 tabs [Active]; - PMHx: 22:52 acquired coagulation factor deficiency; Anxiety; Cerebral infarction; chronic kidney rr5 disease; Dementia; Depression; Diabetes - IDDM; restlessness and aggitation; vitamin b deficiency; 22:57 acquired coagulation factor deficiency; Anxiety; Cerebral infarction; chronic kidney sg disease; Dementia; Depression; Diabetes - IDDM; restlessness and aggitation; vitamin b deficiency; 22:52 Schizophrenia; rr5 - PSHx: 22:57 None; sg - Immunization history:: Adult Immunizations unknown. - Social history:: Smoking status: unknown. - Family history:: not pertinent. - Hospitalizations: : No recent hospitalization is reported. ROS: 23:10 Constitutional: Negative for fever, chills, and weight loss, Eyes: Negative for injury, rn pain, redness, and discharge, Neck: Negative for injury, pain, and swelling, Cardiovascular: Negative for chest pain, palpitations, and edema, Respiratory: Negative for shortness of breath, cough, wheezing, and pleuritic chest pain, Abdomen/GI: Negative for abdominal pain, nausea, vomiting, diarrhea, and constipation, Back: Negative for injury and pain, MS/Extremity: Negative for injury and deformity, Skin: Negative for injury, rash, and discoloration, Neuro: Negative for headache, weakness, numbness, tingling, and seizure, Psych: + thoughts of hurting hiself and others Exam: 23:10 Constitutional: This is a well developed, well nourished patient who is awake, alert, rn and in no acute distress. Head/Face: Normocephalic, atraumatic. Eyes: Pupils equal round and reactive to light, extra-ocular motions intact Neck: Trachea midline, no masses palpated, and no cervical lymphadenopathy. Supple, full range of motion without nuchal rigidity, or vertebral point tenderness. No Meningismus. Cardiovascular: Regular rate and rhythm. No pulse deficits. Respiratory: No increased work of breathing, no retractions or nasal flaring. Abdomen/GI: Soft, non-tender Skin: Warm, dry MS/ Extremity: Pulses equal, no cyanosis. Neurovascular intact. Full, normal range of motion. Equal circumference. Neuro: Awake and alert, GCS 15 Vital Signs: 22:45 BP 153 / 88; Pulse 99; Resp 17; Temp 98; Pulse Ox 100% ; Weight 79.38 kg; Height 5 ft. rr5 7 in. (170.18 cm); Pain 0/10; 10/02 00:00 BP 151 / 79; Pulse 95; Resp 16; Pulse Ox 100% ; rr5 01:00 BP 142 / 85; Pulse 85; Resp 16; Pulse Ox 99% ; rr5 02:00 BP 133 / 85; Pulse 80; Resp 19; Pulse Ox 99% ; rr5 03:00 BP 139 / 80; Pulse 85; Resp 18; Temp 98; Pulse Ox 98% ; rr5 10/01 22:45 Body Mass Index 27.41 (79.38 kg, 170.18 cm) rr5 MDM: 10/01 22:33 Patient medically screened. rn 10/02 01:19 Differential Diagnosis: electrolyte abnormality, agitation, dehydration, dementia. Data rn reviewed: vital signs, nurses notes, lab test result(s), and as a result, I will discharge patient. Counseling: I had a detailed discussion with the patient and/or guardian regarding: the historical points, exam findings, and any diagnostic results supporting the discharge/admit diagnosis, lab results, the need for outpatient follow up, to return to the emergency department if symptoms worsen or persist or if there are any questions or concerns that arise at home. Response to treatment: the patient is now symptom free, and as a result, I will discharge patient. Special discussion: I discussed with the patient/guardian in detail that at this point there is no indication for admission to the hospital. It is understood, however, that if the symptoms persist or worsen the patient needs to return immediately for re-evaluation. ED course: No medical complaints, stable vitals, sent here by snf for ease of transfer, attempted transfer to [facility] has a lot more requirements than initially told, including unnecessary testing. Will dc back to snf given no medical complaints or findings. They have already arranged for transport themselves in AM. . 10/01 22:34 Order name: CBC with Diff rn 10/01 22:34 Order name: Basic Metabolic Panel; Complete Time: 23:53 rn 10/01 22:34 Order name: Urine Microscopic Only rn 10/01 23:26 Order name: Manual Differential EDMS 10/02 02:28 Order name: Glucose, Ancillary Testing EDMS 10/02 03:01 Order name: Urine Dipstick--Ancillary (enter results) mw2 10/01 22:34 Order name: IV Start; Complete Time: 01:11 rn 10/01 22:34 Order name: Urine Dipstick-Ancillary (obtain specimen); Complete Time: : rn Administered Medications: 00:00 Drug: NS 0.9% 500 ml Route: IV; Rate: bolus; Site: left antecubital; rr5 00:50 Follow up: Response: No adverse reaction; IV Status: Completed infusion; IV Intake: rr5 500ml 02:19 Drug: traZODONE 150 mg Route: PO; rr5 02:52 Follow up: Response: No adverse reaction rr5 02:19 Drug: SEROquel 200 mg Route: PO; rr5 02:52 Follow up: Response: No adverse reaction rr5 Disposition: 10/02/20 01:22 Discharged to Home. Impression: Restlessness and agitation. - Condition is Stable. - Medication Reconciliation Form, Thank You Letter, Antibiotic Education, Prescription Opioid Use form. - Follow up: Private Physician; When: As needed; Reason: Recheck today's complaints, Re-evaluation by your physician. - Problem is chronic. - Symptoms have improved. Signatures: Dispatcher [employer] [facility] Cyril Wood RN RN Yovanny Engel MD MD rn Roque, Raymond, RN RN rr5 Corrections: (The following items were deleted from the chart) 01:38 10/01 22:57 Allergies: No Known Allergies; sg rr5 10/02 03:25 01:22 10/02/2020 01:22 Discharged to Home. Impression: Restlessness and agitation. rr5 Condition is Stable. Forms are Medication Reconciliation Form, Thank You Letter, Antibiotic Education, Prescription Opioid Use. Follow up: Private Physician; When: As needed; Reason: Recheck today's complaints, Re-evaluation by your physician. Problem is chronic. Symptoms have improved. rn
[2020-10-02 01:45] LABS: Blood Morphology Comment NOT SEEN (NOT SEEN); Platelet Estimate ADEQ
[2020-10-02 01:56] LABS: Urine Amorphous Sediment 1+ /HPF (NONE SEEN); Urine Bacteria <20 /HPF (NONE SEEN); Urine RBC <5 /HPF (NONE SEEN)
[2020-10-02] MEDS ORDERED: TRAZODONE 150 MG TAB ONE (02:20)
[2020-10-02] MEDS ORDERED: QUETIAPINE 100MG TAB ONE (02:20)
[2020-10-02 03:24] LABS: Urine Blood NEGATIVE (NEG); Urine Glucose NEGATIVE (NEG); Urine Protein 1+ (NEG)
[2020-10-07 01:26] VITALS: BP 139/80; TEMP 98; O2SAT 98
== END 2020-10-02 03:25 | disposition home or self-care (01) ==
LOC: ER 22:27
DX: R45.1 Restlessness and agitation (principal); E11.22 Type 2 diabetes mellitus with diabetic chronic kidney disease; N18.9 Chronic kidney disease, unspecified; F20.9 Schizophrenia, unspecified; F32.9 Major depressive disorder, single episode, unspecified; F03.90 Unspecified dementia, unspecified severity, without behavioral disturbance, psychotic disturbance, mood disturbance, and anxiety; Z79.4 Long term (current) use of insulin; Z79.82 Long term (current) use of aspirin
CPT/HCPCS: 36415; 80048; 81003; 81015; 82947; 85025; 96360; 99284

== ENCOUNTER 2021-02-24 16:54 | Emergency (ER) | payer MEDICAID ==
[2021-02-24] MEDS ORDERED: LIDOCAINE VISCOUS 2% SOLN 15 ML UDC ONE (17:47)
[2021-02-24 17:49] LABS: Urine Blood Negative (Negative); Urine Glucose Negative (Negative); Urine Protein 1+ (Negative); Urine pH 5.5 (5.0-7.0)
--- NOTE | 2021-02-24 17:54 | ER ---
Nurse's Notes [facility] Name: Taye Lagunas Age: 60 yrs Sex: Male : 1960 Arrival Date: 02/24/2021 Time: 17:11 Bed 30 Private MD: Diagnosis: Retention of urine;Urinary tract infection, site not specified Presentation: 02/24 17:14 Chief complaint: EMS states: pt arrives from [facility] for obstructed tr6 lang. at facility lang was flushed, but still had no output. lang replacement was attempted, but facility was unable to insert a lang. Coronavirus screen: Client denies travel out of the [place] in the last 14 days. Ebola Screen: Patient negative for fever greater than or equal to 101.5 degrees Fahrenheit, and additional compatible Ebola Virus Disease symptoms Patient denies exposure to infectious person. Patient denies travel to an Ebola-affected area in the 21 days before illness onset. Initial Sepsis Screen: Does the patient meet any 2 criteria? No. Patient's initial sepsis screen is negative. Does the patient have a suspected source of infection? No. Patient's initial sepsis screen is negative. Risk Assessment: Do you want to hurt yourself or someone else? Patient reports no desire to harm self or others. 17:14 Method Of Arrival: EMS: [facility] tr6 17:44 Acuity: MADELINE 4 tr6 Triage Assessment: 17:41 General: Appears comfortable, unkempt, Behavior is calm, cooperative. Pain: Complains tr6 of pain in urethra. EENT: Oral mucosa is dry. Poor dentition noted. Neuro: No deficits noted. : Genitalia appear normal lang inserted by MD Padgett. Musculoskeletal:. Historical: - Allergies: 17:41 No Known Allergies; tr6 - Home Meds: 17:41 amlodipine 5 mg tab once daily [Active]; aspirin 81 mg Oral chew 1 tab once daily tr6 [Active]; tamsulosin 0.4 mg Oral cp24 1 cap once daily [Active]; metformin 850 mg Oral tab 1 tab 2 times per day [Active]; hydralazine 10 mg Oral tab [Active]; Lantus 100 unit/mL Sub-Q soln daily [Active]; Lipitor 10 mg Oral tab 1 tab once daily [Active]; lisinopril 5 mg Oral tab 1 tab once daily [Active]; Lyrica 150 mg Oral 1 cap 2 times per day [Active]; Seroquel 100 mg oral tab [Active]; Tradjenta 5 mg oral tab [Active]; trazodone 150 mg Oral tab 1 tab [Active]; - Immunization history:: Adult Immunizations up to date. - Social history:: Patient/guardian denies using Smoking status: unknown. Screenin:43 Abuse screen: Denies threats or abuse. Denies injuries from another. Nutritional tr6 screening: No deficits noted. Tuberculosis screening: No symptoms or risk factors identified. Fall Risk None identified. Assessment: 17:35 Reassessment: on arrival to ED pt was seen by MD Padgett. 16 F lang inserted by MD monroe Padgett with assistance from ANTHONY Sawyer. Urine returned and UA sent. 18:24 Reassessment: Report given to nurse Rita at [facility]. Awaiting EMS for aa5 transport back to shelter at this time. . Vital Signs: 17:13 BP 150 / 80; Pulse 61; Resp 16; Temp 98.1; Pulse Ox 99% on R/A; dh4 ED Course: 17:11 Patient arrived in ED. tr6 17:14 Clarence Padgett MD is Attending Physician. [facility] 17:43 Patient has correct armband on for positive identification. Fall risk band placed. Bed tr6 in low position. Side rails up X2. 17:43 lang insertion. Patient did not have IV access during this emergency room visit. tr6 17:44 Triage completed. tr6 17:53 Louis Corcoran MD is Referral Physician. amie Administered Medications: 17:46 Drug: Cipro (ciprofloxacin) 500 mg Route: PO; tr6 18:44 Follow up: Response: No adverse reaction aa5 Outcome: 17:44 Discharged to Rehab Facility tr6 17:44 Condition: good 17:44 Discharge instructions given to patient. 17:54 Discharge ordered by . amie 18:44 Discharged to shelter. Report called to ANTHONY Salinas aa5 18:44 Discharge instructions given to Rita at [facility]. D/C instructions also given to [facility] Instructed on discharge instructions, follow up and referral plans. medication usage, Demonstrated understanding of instructions, follow-up care, medications, Prescriptions given X 2. 18:47 Patient left the ED. aa5 Addendum: 02/28/2021 13:02 Addendum: Culture Results: Positive urine culture. Bacteria is resistant to, has s s intermediate sensitivity, or is not tested against prescribed antibiotics. Report given to JOAN for further evaluation and then to dry cleaning manager for follow up with patient. Phone call Attempt #1 Not a working number. Signatures: Clarence Padgett MD MD cha Calderon, Audri, RN RN aa5 Alina Zhang RN RN Jenna Ibrahim Donald [facility] Alexia Sawyer RN RN tr6 Corrections: (The following items were deleted from the chart) 02/27 07:49 07:48 Addendum: jf rhoades
--- NOTE | 2021-02-24 17:54 | EDPHYS ---
Physician Documentation [facility] Name: Taye Lagunas Age: 60 yrs Sex: Male : 1960 Arrival Date: 02/24/2021 Time: 17:11 Bed 30 Private MD: ED Physician Clarence Padgett HPI: 02/24 17:44 This 60 yrs old Male presents to ER via EMS with complaints of needs a lang. amie 17:44 The patient presents with a Lang catheter problem, is not draining. Onset: The amie symptoms/episode began/occurred just prior to arrival. Modifying factors: The symptoms are alleviated by nothing, the symptoms are aggravated by nothing. Associated signs and symptoms: The patient has no apparent associated signs or symptoms. Severity of symptoms: At their worst the symptoms were. The patient has not experienced similar symptoms in the past. Historical: - Allergies: 17:41 No Known Allergies; tr6 - Home Meds: 17:41 amlodipine 5 mg tab once daily [Active]; aspirin 81 mg Oral chew 1 tab once daily tr6 [Active]; tamsulosin 0.4 mg Oral cp24 1 cap once daily [Active]; metformin 850 mg Oral tab 1 tab 2 times per day [Active]; hydralazine 10 mg Oral tab [Active]; Lantus 100 unit/mL Sub-Q soln daily [Active]; Lipitor 10 mg Oral tab 1 tab once daily [Active]; lisinopril 5 mg Oral tab 1 tab once daily [Active]; Lyrica 150 mg Oral 1 cap 2 times per day [Active]; Seroquel 100 mg oral tab [Active]; Tradjenta 5 mg oral tab [Active]; trazodone 150 mg Oral tab 1 tab [Active]; - Immunization history:: Adult Immunizations up to date. - Social history:: Patient/guardian denies using Smoking status: unknown. ROS: 17:46 Constitutional: Negative for fever, chills, and weight loss, Eyes: Negative for injury, amie pain, redness, and discharge, ENT: Negative for injury, pain, and discharge, Neck: Negative for injury, pain, and swelling, Cardiovascular: Negative for chest pain, palpitations, and edema, Respiratory: Negative for shortness of breath, cough, wheezing, and pleuritic chest pain, Abdomen/GI: Negative for abdominal pain, nausea, vomiting, diarrhea, and constipation, Back: Negative for injury and pain, MS/Extremity: Negative for injury and deformity, Skin: Negative for injury, rash, and discoloration, Neuro: Negative for headache, weakness, numbness, tingling, and seizure, Psych: Negative for depression, anxiety, suicide ideation, homicidal ideation, and hallucinations, Allergy/Immunology: Negative for hives, rash, and allergies, Endocrine: Negative for neck swelling, polydipsia, polyuria, polyphagia, and marked weight changes, Hematologic/Lymphatic: Negative for swollen nodes, abnormal bleeding, and unusual bruising. 17:46 : Positive for difficulty urinating, lang removed because no output , could not replace lang. Exam: 17:46 Constitutional: This is a well developed, well nourished patient who is awake, alert, amie and in no acute distress. Head/Face: Normocephalic, atraumatic. Eyes: Pupils equal round and reactive to light, extra-ocular motions intact. Lids and lashes normal. Conjunctiva and sclera are non-icteric and not injected. Cornea within normal limits. Periorbital areas with no swelling, redness, or edema. ENT: Nares patent. No nasal discharge, no septal abnormalities noted. Tympanic membranes are normal and external auditory canals are clear. Oropharynx with no redness, swelling, or masses, exudates, or evidence of obstruction, uvula midline. Mucous membranes moist. Neck: Trachea midline, no thyromegaly or masses palpated, and no cervical lymphadenopathy. Supple, full range of motion without nuchal rigidity, or vertebral point tenderness. No Meningismus. Chest/axilla: Normal chest wall appearance and motion. Nontender with no deformity. No lesions are appreciated. Cardiovascular: Regular rate and rhythm with a normal S1 and S2. No gallops, murmurs, or rubs. Normal PMI, no JVD. No pulse deficits. Respiratory: Lungs have equal breath sounds bilaterally, clear to auscultation and percussion. No rales, rhonchi or wheezes noted. No increased work of breathing, no retractions or nasal flaring. Back: No spinal tenderness. No costovertebral tenderness. Full range of motion. Male : Normal genitalia with no discharge or lesions. Skin: Warm, dry with normal turgor. Normal color with no rashes, no lesions, and no evidence of cellulitis. MS/ Extremity: Pulses equal, no cyanosis. Neurovascular intact. Full, normal range of motion. Neuro: Awake and alert, GCS 15, oriented to person, place, time, and situation. Cranial nerves II-XII grossly intact. Motor strength 5/5 in all extremities. Sensory grossly intact. Cerebellar exam normal. Normal gait. Psych: Awake, alert, with orientation to person, place and time. Behavior, mood, and affect are within normal limits. 17:46 Abdomen/GI: Inspection: distension, Bowel sounds: normal, Palpation: abdomen is soft and non-tender, Liver: no appreciated palpable abnormalities, Hernia: not appreciated. Vital Signs: 17:13 BP 150 / 80; Pulse 61; Resp 16; Temp 98.1; Pulse Ox 99% on R/A; dh4 Procedures: 17:50 Lang cath inserted by myself - 18 Fr. Urine output = 300 ml's. Patient tolerated well. [facility] MDM: 17:15 Patient medically screened. [facility] 17:50 Differential diagnosis: UTI, urinary retention, Lang catheter problem. Data reviewed: [facility] vital signs, nurses notes, lab test result(s), urinalysis. Data interpreted: monitoring engineer: rate is 61 beats/min, rhythm is regular, Pulse oximetry: on room air is 99 %. Test interpretation: by ED physician or midlevel provider:. Counseling: I had a detailed discussion with the patient and/or guardian regarding: the historical points, exam findings, and any diagnostic results supporting the discharge/admit diagnosis, lab results. 02/24 17:43 Order name: Urine Culture [facility] 02/24 17:49 Order name: Urine Dipstick-Ancillary; Complete Time: 18:45 EDPR 02/24 17:43 Order name: Lang; Complete Time: 17:46 [facility] 02/24 17:43 Order name: Urine Dipstick-Ancillary (obtain specimen); Complete Time: 18:39 [facility] 02/24 18:18 Order name: Glucose, Ancillary Testing; Complete Time: 18:45 [facility] 02/24 17:43 Order name: Leg Bag; Complete Time: 17:46 [facility] 02/24 17:43 Order name: Blood Glucose Level; Complete Time: 18:04 [facility] Administered Medications: 17:46 Drug: Cipro (ciprofloxacin) 500 mg Route: PO; tr6 18:44 Follow up: Response: No adverse reaction aa5 Disposition: 02/24/21 17:54 Discharged to Home. Impression: Retention of urine, Urinary tract infection, site not specified. - Condition is Stable. - Discharge Instructions: Lang Catheter Care, Adult, Urinary Tract Infection, Adult, Urinary Tract Infection, Adult, [id number], Acute Urinary Retention, Male, [id number]. - Prescriptions for Cipro 250 mg Oral Tablet - take 1 tablet by ORAL route every 12 hours; 20 tablet. Flomax 0.4 mg Oral Capsule, Sust. Release 24 hr - take 1 capsule by ORAL route once daily 1/2 hour following the same meal each day; 30 capsule. - Medication Reconciliation Form, Thank You Letter, Antibiotic Education, Prescription Opioid Use form. - Follow up: Private Physician; When: 2 - 3 days; Reason: Recheck today's complaints, Continuance of care, Re-evaluation by your physician. Follow up: Louis Corcoran MD; When: 2 - 3 days; Reason: Recheck today's complaints, Re-evaluation by your physician. - Problem is new. - Symptoms have improved. Signatures: Dispatcher [employer] EDClarence Duggan MD MD cha Calderon, Audri RN RN aa5 Alexia Sawyer RN RN tr6 Corrections: (The following items were deleted from the chart) 18:47 17:54 02/24/2021 17:54 Discharged to Home. Impression: Retention of urine; Urinary aa5 tract infection, site not specified. Condition is Stable. Forms are Medication Reconciliation Form, Thank You Letter, Antibiotic Education, Prescription Opioid Use. Follow up: Private Physician; When: 2 - 3 days; Reason: Recheck today's complaints, Continuance of care, Re-evaluation by your physician. Follow up: Louis Corcoran; When: 2 - 3 days; Reason: Recheck today's complaints, Re-evaluation by your physician. Problem is new. Symptoms have improved. amie
[2021-02-24] MEDS ORDERED: CIPROFLOXACIN HCL 500 MG TAB ONE (18:06)
[2021-02-24 19:01] VITALS: BP 150/80; TEMP 98.1; O2SAT 99
== END 2021-02-24 18:47 | disposition home or self-care (01) ==
LOC: ER 16:54
DX: N39.0 Urinary tract infection, site not specified (principal); T83.018A Breakdown (mechanical) of other urinary catheter, initial encounter
CPT/HCPCS: 51702; 81003; 82947; 87077; 87086; 87088; 87186; 99283

== ENCOUNTER 2021-03-31 22:37 | Emergency (ER) | payer MEDICAID ==
--- NOTE | 2021-04-01 00:06 | EDPHYS ---
Physician Documentation [facility] Name: Taye Lagunas Age: 60 yrs Sex: Male : 1960 Arrival Date: 03/31/2021 Time: 22:40 Bed 17 Private MD: ED Physician Clarence Padgett HPI: 04/01 00:00 This 60 yrs old Male presents to ER via Unassigned with complaints of URINARY amie RETENTION, CANT REPLACE PATTERSON. 00:00 The patient presents with a Patterson catheter problem, urinary symptoms, dribbling of amie urine, dysuria. Onset: The symptoms/episode began/occurred just prior to arrival. Modifying factors: The symptoms are alleviated by nothing, remaining still, the symptoms are aggravated by nothing. Associated signs and symptoms: The patient has no apparent associated signs or symptoms. Severity of symptoms: At their worst the symptoms were mild, in the emergency department the symptoms are unchanged. The patient has experienced similar episodes in the past, several times. Historical: - PMHx: 00:21 Unable to obtain; lc1 - Immunization history:: Adult Immunizations unknown. - Family history:: not pertinent. - Social history:: Smoking status: unknown. ROS: 00:02 Constitutional: Negative for fever, chills, and weight loss, Eyes: Negative for injury, amie pain, redness, and discharge, ENT: Negative for injury, pain, and discharge, Neck: Negative for injury, pain, and swelling, Cardiovascular: Negative for chest pain, palpitations, and edema, Respiratory: Negative for shortness of breath, cough, wheezing, and pleuritic chest pain, Back: Negative for injury and pain, : Negative for injury, bleeding, discharge, and swelling, MS/Extremity: Negative for injury and deformity, Skin: Negative for injury, rash, and discoloration, Neuro: Negative for headache, weakness, numbness, tingling, and seizure, Psych: Negative for depression, anxiety, suicide ideation, homicidal ideation, and hallucinations, Allergy/Immunology: Negative for hives, rash, and allergies, Endocrine: Negative for neck swelling, polydipsia, polyuria, polyphagia, and marked weight changes, Hematologic/Lymphatic: Negative for swollen nodes, abnormal bleeding, and unusual bruising. 00:02 Abdomen/GI: Positive for abdominal pain, of the suprapubic area. Exam: 00:02 Constitutional: This is a well developed, well nourished patient who is awake, alert, amie and in no acute distress. Head/Face: Normocephalic, atraumatic. Eyes: Pupils equal round and reactive to light, extra-ocular motions intact. Lids and lashes normal. Conjunctiva and sclera are non-icteric and not injected. Cornea within normal limits. Periorbital areas with no swelling, redness, or edema. ENT: Nares patent. No nasal discharge, no septal abnormalities noted. Tympanic membranes are normal and external auditory canals are clear. Oropharynx with no redness, swelling, or masses, exudates, or evidence of obstruction, uvula midline. Mucous membranes moist. Neck: Trachea midline, no thyromegaly or masses palpated, and no cervical lymphadenopathy. Supple, full range of motion without nuchal rigidity, or vertebral point tenderness. No Meningismus. Chest/axilla: Normal chest wall appearance and motion. Nontender with no deformity. No lesions are appreciated. Cardiovascular: Regular rate and rhythm with a normal S1 and S2. No gallops, murmurs, or rubs. Normal PMI, no JVD. No pulse deficits. Respiratory: Lungs have equal breath sounds bilaterally, clear to auscultation and percussion. No rales, rhonchi or wheezes noted. No increased work of breathing, no retractions or nasal flaring. Abdomen/GI: Soft, non-tender, with normal bowel sounds. No distension or tympany. No guarding or rebound. No evidence of tenderness throughout. Back: No spinal tenderness. No costovertebral tenderness. Full range of motion. Male : Normal genitalia with no discharge or lesions. Skin: Warm, dry with normal turgor. Normal color with no rashes, no lesions, and no evidence of cellulitis. MS/ Extremity: Pulses equal, no cyanosis. Neurovascular intact. Full, normal range of motion. Neuro: Awake and alert, GCS 15, oriented to person, place, time, and situation. Cranial nerves II-XII grossly intact. Motor strength 5/5 in all extremities. Sensory grossly intact. Cerebellar exam normal. Normal gait. Psych: Awake, alert, with orientation to person, place and time. Behavior, mood, and affect are within normal limits. Vital Signs: 03/31 23:00 BP 97 / 62; Pulse 65; Resp 18; Pulse Ox 97% on R/A; [facility] 04/01 00:00 BP 123 / 70; Pulse 65; Resp 18; Pulse Ox 97% on R/A; [facility] 01:00 BP 116 / 59; Pulse 68; Resp 18; Pulse Ox 97% on R/A; 1 Procedures: 00:08 BY RN , NO COMPLICATIONS. [facility] MDM: 03/31 22:44 Patient medically screened. [facility] 04/01 00:03 Differential diagnosis: UTI, urinary retention, Patetrson catheter problem, prostatitis, amie urethritis. Data reviewed: vital signs, nurses notes, lab test result(s), urinalysis. Data interpreted: monitor technician: not applicable for this patient encounter. rate is 80 beats/min, rhythm is regular. Counseling: I had a detailed discussion with the patient and/or guardian regarding: the historical points, exam findings, and any diagnostic results supporting the discharge/admit diagnosis, lab results. 03/31 22:45 Order name: Urine Culture [facility] 03/31 22:45 Order name: Urine Culture [facility] 03/31 22:45 Order name: Patterson: yamilex durhamo; Complete Time: 00:09 [facility] 03/31 22:45 Order name: Urine Dipstick-Ancillary (obtain specimen); Complete Time: 00: [facility] 04/01 00:08 Order name: Urine Dipstick-Ancillary [facility] Administered Medications: 00:41 Drug: Cipro (ciprofloxacin) 500 mg Route: PO; [facility] 00:42 Follow up: Response: No adverse reaction [facility] Disposition: 04/01/21 00:06 Discharged to Home. Impression: Retention of urine - PATTERSON CATHETER REPLACEMENT. - Condition is Stable. - Discharge Instructions: Patterson Catheter Care, Adult, Acute Urinary Retention, Male, [id number]. - Prescriptions for Cipro 250 mg Oral Tablet - take 1 tablet by ORAL route every 12 hours; 14 tablet. - Medication Reconciliation Form, Thank You Letter, Antibiotic Education, Prescription Opioid Use, SBAR form form. - Follow up: Private Physician; When: 2 - 3 days; Reason: Recheck today's complaints, Continuance of care, Re-evaluation by your physician. Follow up: Louis Corcoran MD; When: 2 - 3 days; Reason: Recheck today's complaints, Re-evaluation by your physician. - Problem is new. - Symptoms have improved. Signatures: Dispatcher [employer] EDClarence Duggan MD MD cha Calhoun, Lisa lc1 Timmy Garsia RN RN [email or web address] Corrections: (The following items were deleted from the chart) 00:06 00:06 04/01/2021 00:06 Discharged to Home. Impression: Retention of urine - PATTERSON amie CATHETER REPLACEMENT. Condition is Stable. Forms are Medication Reconciliation Form, Thank You Letter, Antibiotic Education, Prescription Opioid Use. Follow up: Private Physician; When: 2 - 3 days; Reason: Recheck today's complaints, Continuance of care, Re-evaluation by your physician. Problem is new. Symptoms have improved. [facility] 01:51 00:06 04/01/2021 00:06 Discharged to Home. Impression: Retention of urine - PATTERSON jm8 CATHETER REPLACEMENT. Condition is Stable. Forms are Medication Reconciliation Form, Thank You Letter, Antibiotic Education, Prescription Opioid Use. Follow up: Private Physician; When: 2 - 3 days; Reason: Recheck today's complaints, Continuance of care, Re-evaluation by your physician. Follow up: Louis Corcoran; When: 2 - 3 days; Reason: Recheck today's complaints, Re-evaluation by your physician. Problem is new. Symptoms have improved. amie
[2021-04-01 00:09] LABS: Urine Blood 2+ (Negative); Urine Glucose Negative (Negative); Urine Protein 3+ (Negative); Urine Specific Gravity 1.025 (1.005-1.030)
[2021-04-01] MEDS ORDERED: LIDOCAINE VISCOUS 2% SOLN 15 ML UDC ONE (00:09)
[2021-04-01] MEDS ORDERED: CIPROFLOXACIN HCL 500 MG TAB ONE (00:58)
--- NOTE | 2021-04-01 01:53 | ER ---
Nurse's Notes [facility] Name: Taye Lagunas Age: 60 yrs Sex: Male : 1960 Arrival Date: 03/31/2021 Time: 22:40 Bed 17 Private MD: Diagnosis: Retention of urine-PATTERSON CATHETER REPLACEMENT Presentation: 04/01 01:24 Chief complaint: EMS states: EMS brought pt from [facility] where pt is resident. [facility] Patterson was being changed out today and they were unable to place new patterson. Pt keeps indwelling patterson for urinary retention. Coronavirus screen: Client denies travel out of the [place] in the last 14 days. At this time, the client does not indicate any symptoms associated with coronavirus-19. Ebola Screen: Patient negative for fever greater than or equal to 101.5 degrees Fahrenheit, and additional compatible Ebola Virus Disease symptoms Patient denies exposure to infectious person. Patient denies travel to an Ebola-affected area in the 21 days before illness onset. Initial Sepsis Screen: Does the patient meet any 2 criteria? No. Patient's initial sepsis screen is negative. Does the patient have a suspected source of infection? No. Patient's initial sepsis screen is negative. Risk Assessment: Do you want to hurt yourself or someone else? Patient reports no desire to harm self or others. Onset of symptoms was March 31, 2021. 01:24 Method Of Arrival: EMS: [facility] 01:24 Acuity: MADELINE 4 lc1 Triage Assessment: 01:24 General: Appears in no apparent distress. General: Behavior is calm, cooperative. Pain: lc1 Denies pain. EENT: No signs and/or symptoms were reported regarding the EENT system. Neuro: Reports weakness pt hx of cva with left sided weakness. Cardiovascular: No deficits noted. Respiratory: No deficits noted. GI: No deficits noted. : [facility] unable to place patterson. Derm: No signs and/or symptoms reported regarding the dermatologic system. Musculoskeletal: No signs and/or symptoms reported regarding the musculoskeletal system. Historical: - PMHx: 00:21 Unable to obtain; lc1 - Immunization history:: Adult Immunizations unknown. - Family history:: not pertinent. - Social history:: Smoking status: unknown. Screenin:00 Abuse screen: Denies threats or abuse. Nutritional screening: No deficits noted. lc1 Tuberculosis screening: No symptoms or risk factors identified. Fall Risk None identified. Assessment: 03/31 23:30 General: Appears in no apparent distress. Behavior is calm, cooperative. General: lc1 Appears Behavior is. Pain: Denies pain. Neuro: Level of Consciousness is. 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 Cardiovascular: No deficits noted. Respiratory: No deficits noted. GI: No deficits noted. : per EMS pt had retention, [facility] was unable to place patterson. EENT: No signs and/or symptoms were reported regarding the EENT system. Derm: No signs and/or symptoms reported regarding the dermatologic system. Musculoskeletal: patient with hx of cva, nonambulatory, unable to follow commands. 04/01 00:30 Reassessment: No changes from previously documented assessment. Patient and/or family lc1 updated on plan of care and expected duration. Pain level reassessed. Patient is alert, oriented x 3, equal unlabored respirations, skin warm/dry/pink. 01:23 Reassessment: No changes from previously documented assessment. Patient and/or family lc1 updated on plan of care and expected duration. Pain level reassessed. Patient is alert, oriented x 3, equal unlabored respirations, skin warm/dry/pink. Vital Signs: 03/31 23:00 BP 97 / 62; Pulse 65; Resp 18; Pulse Ox 97% on R/A; lc1 04/01 00:00 BP 123 / 70; Pulse 65; Resp 18; Pulse Ox 97% on R/A; lc1 01:00 BP 116 / 59; Pulse 68; Resp 18; Pulse Ox 97% on R/A; lc1 ED Course: 03/31 22:40 Patient arrived in ED. cf2 22:43 Clarence Padgett MD is Attending Physician. amie 23:41 Isi Aggarwal is Primary Nurse. lc1 04/01 00:00 No provider procedures requiring assistance completed. Patient did not have IV access lc1 during this emergency room visit. 00:00 Patterson cath inserted, using sterile technique, 16 Fr., by ny, balloon inflated, to lc1 gravity drainage, urine specimen collected. 00:00 Patient has correct armband on for positive identification. Bed in low position. Side 1 rails up X2. 00:00 Patient notified of wait time. 1 00:06 Louis Corcoran MD is Referral Physician. [facility] 00:09 Urine Culture Sent. [facility] 00:09 Urine Culture Sent. 1 00:09 Urine Dipstick-Ancillary Sent. [facility] 00:27 Awaiting: report and transfer back to [facility]. [facility] 01:27 Triage completed. lc1 Administered Medications: 00:41 Drug: Cipro (ciprofloxacin) 500 mg Route: PO; [facility] 00:42 Follow up: Response: No adverse reaction [facility] Outcome: 00:06 Discharge ordered by . [facility] 01:23 Discharged to custodial. Report called to Tiffany [facility] 01:23 Condition: good 01:23 Discharge instructions given to patient, Instructed on discharge instructions, follow up and referral plans. Demonstrated understanding of instructions, follow-up care, medications, Prescriptions given X 1. 01:51 Patient left the ED. [email or web address] Addendum: 04/04/2021 11:18 Addendum: Culture Results: Positive urine culture. Result faxed to Rita, nurse with a [facility]. Signatures: Clarence Padgett MD MD cha Calderon, Audri, RN RN [email or web address] Isi Aggarwal lc1 Dorothy Flowers 2 Timmy Garsia, RN RN jm8 Corrections: (The following items were deleted from the chart) 04/01 00:32 06 23:30 Neuro: Level of Consciousness is awake, alert, Oriented to person, history lc1 of cva, pt bedbound from [facility], unable to follow commands . 1
[2021-04-01 01:58] VITALS: O2SAT 97
[2021-04-01 02:02] VITALS: BP 116/59
== END 2021-04-01 01:51 | disposition home or self-care (01) ==
LOC: ER 22:37
DX: R33.9 Retention of urine, unspecified (principal); T83.098A Other mechanical complication of other urinary catheter, initial encounter
CPT/HCPCS: 51702; 81003; 87077; 87086; 87088; 87186; 99284

== ENCOUNTER 2021-05-04 18:17 | Emergency (ER) | payer MEDICAID ==
--- NOTE | 2021-05-04 19:58 | EDPHYS ---
Physician Documentation [facility] Name: Taye Lagunas Age: 60 yrs Sex: Male : 1960 Arrival Date: 05/04/2021 Time: 18:20 Bed 14 Private MD: ED Physician Clarence Padgett HPI: 05/04 19:55 This 60 yrs old Male presents to ER via EMS with complaints of needs lang pm1 replaced. 19:55 Associated signs and symptoms: Pertinent positives: reports some leaking of urine from pm1 lang, Pertinent negatives: abdominal pain, fever, vomiting. Modifying factors: The patient symptoms are alleviated by nothing, the patient symptoms are aggravated by nothing. The patient has not recently seen a physician. Historical: - Allergies: 18:25 No Known Allergies; ld1 - Home Meds: 18:24 amlodipine 5 mg oral tab [Active]; aspirin 81 mg Oral chew 1 tab once daily [Active]; ld1 hydralazine 10 mg Oral tab [Active]; Lantus 100 unit/mL Sub-Q soln daily [Active]; Lipitor 10 mg Oral tab 1 tab once daily [Active]; lisinopril 5 mg Oral tab 1 tab once daily [Active]; Lyrica 150 mg Oral 1 cap 2 times per day [Active]; metformin 850 mg Oral tab 1 tab 2 times per day [Active]; Seroquel 100 mg Oral tab [Active]; tamsulosin 0.4 mg Oral cp24 1 cap once daily [Active]; Tradjenta 5 mg Oral tab [Active]; trazodone 150 mg Oral tab 1 tab [Active]; - Immunization history:: Adult Immunizations up to date. - Social history:: Smoking status: Patient denies any tobacco usage or history of. ROS: 19:55 Constitutional: Negative for fever, chills, and weight loss, Cardiovascular: Negative pm1 for chest pain, palpitations, and edema, Respiratory: Negative for shortness of breath, cough, wheezing, and pleuritic chest pain, Abdomen/GI: Negative for abdominal pain, nausea, vomiting, diarrhea, and constipation, : Negative for injury, bleeding, discharge, and swelling. 19:55 All other systems are negative. Exam: 19:55 Constitutional: This is a well developed, well nourished patient who is awake, alert, pm1 and in no acute distress. Head/Face: Normocephalic, atraumatic. 19:55 Back: No spinal tenderness. No costovertebral tenderness. Full range of motion. 19:55 Skin: Warm, dry with normal turgor. Normal color with no rashes, no lesions, and no evidence of cellulitis. 19:55 Cardiovascular: Exam negative for acute changes, Rate: normal, Rhythm: regular, Pulses: no pulse deficits are appreciated. 19:55 Respiratory: Exam negative for acute changes, respiratory distress, shortness of breath. 19:55 Abdomen/GI: Inspection: abdomen appears normal, Palpation: abdomen is soft and non-tender, in all quadrants. 19:55 : Male external genitalia: lang catherter present, No erythema, lesions, discharge swelling or tenderness. 19:55 Neuro: Exam negative for acute changes, Orientation: is normal, Mentation: is normal. Vital Signs: 18:21 BP 138 / 92; Pulse 82; Resp 18; Temp 98.4(O); Pulse Ox 100% ; ld1 19:46 BP 129 / 88; Pulse 88; Resp 18; Pulse Ox 99% on R/A; ld1 MDM: 19:09 Patient medically screened. pm1 19:55 Data reviewed: vital signs. Data interpreted: Pulse oximetry: on room air is 99 %. pm1 Interpretation: normal. Counseling: I had a detailed discussion with the patient and/or guardian regarding: the historical points, exam findings, and any diagnostic results supporting the discharge/admit diagnosis, the need for outpatient follow up, to return to the emergency department if symptoms worsen or persist or if there are any questions or concerns that arise at home. 05/04 19:05 Order name: Jonathan; Complete Time: 19:21 rn Administered Medications: No medications were administered Disposition: 05/05 07:06 Co-signature as Attending Physician, Clarence Padgett MD I agree with the assessment and amie plan of care. Disposition Summary: 05/04/21 19:57 Discharge Ordered Location: Home pm1 Problem: new pm1 Symptoms: have improved pm1 Condition: Stable pm1 Diagnosis - Encounter for fitting and adjustment of urinary device pm1 Followup: pm1 - With: Emergency Department - When: As needed - Reason: Worsening of condition Followup: pm1 - With: Private Physician - When: 2 - 3 days - Reason: Recheck today's complaints, Continuance of care, Re-evaluation by your physician Discharge Instructions: - Discharge Summary Sheet pm1 - Indwelling Urinary Catheter Care, Adult pm1 Forms: - Medication Reconciliation Form pm1 - Thank You Letter pm1 - Antibiotic Education pm1 - Prescription Opioid Use pm1 Signatures: Clarence Padgett MD MD cha Nieto, Roman, MD MD rn Marinas, Patrick, ACID TESTER ACID TESTER pm1 Geetha Li RN RN ld1
--- NOTE | 2021-05-04 19:58 | ER ---
Nurse's Notes [facility] Name: Taye Lagunas Age: 60 yrs Sex: Male : 1960 Arrival Date: 05/04/2021 Time: 18:20 Bed 14 Private MD: Diagnosis: Encounter for fitting and adjustment of urinary device Presentation: 05/04 18:21 Chief complaint: EMS states: toned out for lang change. Coronavirus screen: At this ld1 time, the client does not indicate any symptoms associated with coronavirus-19. Ebola Screen: No symptoms or risks identified at this time. Initial Sepsis Screen: Does the patient meet any 2 criteria? No. Patient's initial sepsis screen is negative. Does the patient have a suspected source of infection? No. Patient's initial sepsis screen is negative. Risk Assessment: Do you want to hurt yourself or someone else? Patient reports no desire to harm self or others. Onset of symptoms was May 04, 2021. 18:21 Method Of Arrival: EMS: [facility] ld1 18:21 Acuity: MADELINE 4 ld1 Triage Assessment: 18:25 General: Appears in no apparent distress. comfortable, Behavior is calm, cooperative, ld1 appropriate for age. Pain: Denies pain. EENT: No deficits noted. Neuro: Level of Consciousness is awake, alert, obeys commands, confused, Oriented to person. Cardiovascular: Capillary refill < 3 seconds Patient's skin is warm and dry. Respiratory: Airway is patent Respiratory effort is even, unlabored, Respiratory pattern is regular, symmetrical. GI: Abdomen is flat, non-distended. : Lang in place. Derm: No signs and/or symptoms reported regarding the dermatologic system. Musculoskeletal: No signs and/or symptoms reported regarding the musculoskeletal system. Historical: - Allergies: 18:25 No Known Allergies; ld1 - Home Meds: 18:24 amlodipine 5 mg oral tab [Active]; aspirin 81 mg Oral chew 1 tab once daily [Active]; ld1 hydralazine 10 mg Oral tab [Active]; Lantus 100 unit/mL Sub-Q soln daily [Active]; Lipitor 10 mg Oral tab 1 tab once daily [Active]; lisinopril 5 mg Oral tab 1 tab once daily [Active]; Lyrica 150 mg Oral 1 cap 2 times per day [Active]; metformin 850 mg Oral tab 1 tab 2 times per day [Active]; Seroquel 100 mg Oral tab [Active]; tamsulosin 0.4 mg Oral cp24 1 cap once daily [Active]; Tradjenta 5 mg Oral tab [Active]; trazodone 150 mg Oral tab 1 tab [Active]; - Immunization history:: Adult Immunizations up to date. - Social history:: Smoking status: Patient denies any tobacco usage or history of. Screenin:08 Abuse screen: Denies threats or abuse. Denies injuries from another. Nutritional ld1 screening: No deficits noted. Tuberculosis screening: No symptoms or risk factors identified. Fall Risk Ambulatory Aid- Crutches/Cane/Walker (15 pts). Gait- Impaired (20 pts.). Mental Status- Overestimates/Forgets Limitations (15 pts.). Total Mcintosh Fall Scale indicates High Risk Score (45 or more points). Assessment: 19:46 Reassessment: Patient appears in no apparent distress at this time. No changes from ld1 previously documented assessment. Patient and/or family updated on plan of care and expected duration. Pain level reassessed. Patient is alert, oriented x 3, equal unlabored respirations, skin warm/dry/pink. 20:43 Reassessment: Attempted to call report multiple [facility] to [facility]. Pt ld1 being discharged with [facility]. Vital Signs: 18:21 BP 138 / 92; Pulse 82; Resp 18; Temp 98.4(O); Pulse Ox 100% ; ld1 19:46 BP 129 / 88; Pulse 88; Resp 18; Pulse Ox 99% on R/A; ld1 ED Course: 18:20 Patient arrived in ED. ss 18:21 Geetha Li, ANTHONY is Primary Nurse. ld1 18:24 Triage completed. ld1 18:25 Arm band placed on left wrist. ld1 19:08 Aaron Caceres NP is PHCP. pm1 19:08 Clarence Padgett MD is Attending Physician. pm1 20:09 Patient has correct armband on for positive identification. Bed in low position. Call ld1 light in reach. Side rails up X2. Pulse ox on. NIBP on. 20:09 No provider procedures requiring assistance completed. Patient did not have IV access ld1 during this emergency room visit. intact, bleeding controlled, No redness/swelling at site. Administered Medications: No medications were administered Outcome: 19:57 Discharge ordered by MD. pm1 20:46 Discharged to halfway. ld1 20:46 Condition: stable 20:46 Discharge instructions given to patient. 20:46 Patient left the ED. ld1 Signatures: Alina Zhang RN RN ss Aaron Caceres NP LARDER COOK pm1 Geetha Li RN RN ld1
[2021-05-04 21:03] VITALS: TEMP 98.4
[2021-05-04 21:05] VITALS: BP 129/88; O2SAT 99
== END 2021-05-04 20:46 | disposition home or self-care (01) ==
LOC: ER 18:17
DX: T83.038A Leakage of other urinary catheter, initial encounter (principal)
CPT/HCPCS: 99283

== ENCOUNTER 2022-12-30 16:45 | Emergency (ER) | payer OTHER ==
--- NOTE | 2022-12-30 17:28 | RAD REPORT ---
EXAM DESCRIPTION: CT - Ct Stroke Brain Wo Cont - 12/30/2022 5:13 pm CLINICAL HISTORY: STROKE ALERT COMPARISON: Chest Single View dated 12/30/2022 TECHNIQUE: Noncontrast head CT images ad were obtained without IV contrast. Multiplanar reformats we re generated and reviewed. All CT scans are performed using dose optimization technique as appropriate and may include automated exposure control or mA/KV adjustment according to patient size. FINDINGS: Region of encephalomalacia involving the left occipital and posterior temporal lobe, as we ll as areas of encephalomalacia involving the left inferior cerebellar hemisphere. Small foci of near CSF density in the right chanelle and right subinsular and periventricular region. The findings are most suggestive of sequelae of remote ischemia. No intracranial hemorrhage, mass, or edema. Midline structures are unremarkable. Normal ventricular caliber for age, with mild diffuse parenchymal volume loss. . Hampton-white matter differentiation is preserved, without evidence of acute infarct. No abnormal extra- axial fluid collections. Mastoid air cells and visualized portions of the paranasal sinuses are clear. No acute bony findings. IMPRESSION: No evidence of an acute intracranial process. Sequelae of remote ischemia above and bel ow the tentorium as above.
[2022-12-30 17:29] LABS: Absolute Lymphocytes (CBC) 2.1 K/uL (0.7-4.9); Hematocrit 34.2 % (39.6-49.0); Lymphocytes % 24.6 % (15.3-44.8); MCV 92.3 fL (80-100); MPV 8.4 fL (7.6-11.3); RBC Red Blood Cell Count 3.71 M/uL (4.33-5.43)
[2022-12-30 17:34] LABS: Protime INR 0.87
[2022-12-30 17:50] LABS: Potassium 4.8 mmol/L (3.5-5.1); Troponin High Sensitivity 9.8 pg/mL (<58.9)
--- NOTE | 2022-12-30 17:55 | RAD REPORT ---
EXAM DESCRIPTION: ANTONIETAChest Single View12/30/2022 5:20 pm CLINICAL HISTORY: CVA. Left arm weakness. Left facial weakness and slurred speech COMPARISON: Ct Stroke Brain Wo Cont dated 12/30/2022 TECHNIQUE: Portable AP view of the chest. FINDINGS: Decreased inspiratory effort limits evaluation. The lungs are clear.Right basilar atelecta sis. No pneumothorax or effusion. The cardiomediastinal contours are unremarkable. IMPRESSION: No acute cardiopulmonary process.
--- NOTE | 2023-01-02 13:11 | EKG ---
Test Date: 2022-12-30 Test Time: 17:26:13 Director Of Leadership Development: HB MEASUREMENT RESULTS: Intervals: Rate: 96 MN: 170 QRSD: 92 QT: 348 QTc: 439 Jackson: P: 73 MN: 170 QRS: 204 T: 54 INTERPRETIVE STATEMENTS: Normal sinus rhythm Right superior axis deviation Incomplete right bundle branch block Abnormal ECG Compared to ECG 03/14/2020 06:11:15 Right superior axis now present Incomplete right bundle-branch block now present Electronically Signed On 01-02-23 13:06:15 CDT by Ilan Ferrera
--- NOTE | 2023-01-13 16:07 | EDPHYS ---
Physician Documentation [facility] Name: Taye Lagunas Age: 62 yrs Sex: Male : 1960 Arrival Date: 12/30/2022 Time: 16:52 Bed 14 Private MD: ED Physician Yovanny Grant HPI: 12/30 16:58 This 62 yrs old Male presents to ER via EMS with complaints of weakness. rn 16:58 The patient presents to the emergency department with weakness of the left upper rn extremity, left lower extremity, a speech or higher order brain function problem. Onset: The symptoms/episode began/occurred at an unknown time. Associated signs and symptoms: Pertinent positives: weakness, Pertinent negatives: fever. Severity of symptoms: At their worst the symptoms were moderate in the emergency department the symptoms are unchanged. The patient has experienced a previous episode. The patient has not recently seen a physician. EMS reports left sided weakness and slurred speech, detention reports last seen normal at 11:30 today, noticed around noon when checked on him that there had been some changes in speech as well as left sided weakness. Has hx of stroke with right sided weakness. Pt at baseline not able to ambulate due to previous CVA. . Historical: - Allergies: 16:55 No Known Allergies; hb - Immunization history:: Adult Immunizations up to date. - Family history:: not pertinent. - Social history:: Smoking status: Patient denies any tobacco usage or history of. - Hospitalizations: : No recent hospitalization is reported. ROS: 16:58 Constitutional: Negative for fever, chills, and weight loss, Eyes: Negative for injury, rn pain, redness, and discharge, Cardiovascular: Negative for chest pain, palpitations, and edema, Respiratory: Negative for shortness of breath, cough, wheezing, and pleuritic chest pain, Abdomen/GI: Negative for abdominal pain, nausea, vomiting, diarrhea, and constipation, Back: Negative for injury and pain, MS/Extremity: Negative for injury and deformity, Skin: Negative for injury, rash, and discoloration, Neuro: + left sided weakness and slurred speech Exam: 16:58 Constitutional: Bed-bound patient who is awake and no acute distress Head/Face: rn Normocephalic, atraumatic. ENT: dry MM Cardiovascular: Tachycardic, regular Respiratory: + mild tachypnea Abdomen/GI: soft, non-tender MS/ Extremity: Pulses equal, no cyanosis. Neuro: Awake and alert, GCS 15, oriented to person, place, and situation. + left lower facial droop with forehead sparing, RUE/RLE 4/5 strength leg worse than arm. LUE with drift and unable to lift left leg off bed. Sensation grossly intact. Vital Signs: 16:53 BP 101 / 69; Pulse 105; Resp 24; Temp 98.1; Pulse Ox 100% on R/A; Weight 74.84 kg; hb Height 5 ft. 3 in. ; Pain 0/10; 17:39 BP 125 / 62; Pulse 94; Resp 18; Pulse Ox 96% ; hb 18:16 BP 110 / 65; Pulse 89; Resp 17; Pulse Ox 98% on R/A; hb 16:53 Body Mass Index 29.23 (74.84 kg, 160.02 cm) hb 16:53 Pain Scale: Adult hb NIH Stroke Scale Scores: 17:02 NIHSS Score: 6 rn MDM: 16:55 Patient medically screened. rn 17:03 ED course: Pt with last known normal 5.5 hours ago, not a TNK candidate. Will obtain ct rn head and CTA to rule out LVO.. 17:45 ED course: No acute findings on CT head, only chronic findings per radiology. Unable to rn obtain CTA 2/2 creatinine. . 18:40 Data reviewed: vital signs, nurses notes, lab test result(s), radiologic studies, CT rn scan. 18:41 Consideration of Admission/Observation Escalation of care including attorney/observation considered. Discussion of test interpretation with radiology: I had a discussion with radiology regarding a test interpretation. Discussed CT head with radiologist, no acute findings or hemorrhage. . Care significantly affected by the following chronic conditions: Hypertension, Chronic Kidney Disease, CVA. Counseling: I had a detailed discussion with the patient and/or guardian regarding: the historical points, exam findings, and any diagnostic results supporting the discharge/admit diagnosis, lab results, radiology results, the need for further work-up and treatment in the hospital, the need to transfer to another facility. Refusal of service: The patient/guardian displays adequate decision making capability and despite a detailed discussion of alternatives, benefits, risks, and consequences refuses: Admission to the hospital for further work-up and treatment. ED course: Spoke with patient and sister in room, recommend admission and actually transfer to medical center for further evaluation and care as patient with likely new CVA, cannot get CTA, and could possibly benefit from invasive procedures which we do not have access to here in this hospital. They both understand need for transfer, but patient refuses. Sister got other family members on phone and patient still refuses admission/transfer. Understands risks/benefits of admission and going home. Sister agrees understands situation and he is of sound mind and that neither of us can force him. Sister states he is non-compliant and has stated repeatedly prior to this episode does not want further medical care. . 12/30 16:56 Order name: Basic Metabolic Panel; Complete Time: 18:12 rn 12/30 16:56 Order name: CBC with Diff; Complete Time: 17:47 rn 12/30 16:56 Order name: High Sensitivity Troponin; Complete Time: 18:12 rn 12/30 16:56 Order name: Protime (+inr); Complete Time: 17:47 rn 12/30 16:56 Order name: Ptt, Activated; Complete Time: 17:47 rn 12/30 17:39 Order name: Glucose, Ancillary Testing; Complete Time: 17:47 EDMS 12/30 17:41 Order name: Glucose, Ancillary Testing EDMS 12/30 16:56 Order name: CT Stroke Brain w/o Contrast; Complete Time: 17:47 rn 12/30 16:56 Order name: Stroke CXR 1 View; Complete Time: 18:12 rn 12/30 16:56 Order name: EKG; Complete Time: 16:57 rn 12/30 16:56 Order name: Accucheck; Complete Time: 17:24 rn 12/30 16:56 Order name: Cardiac monitoring; Complete Time: 17:24 rn 12/30 16:56 Order name: EKG - Nurse/Tech; Complete Time: 17:24 rn 12/30 16:56 Order name: IV Saline Lock; Complete Time: 17:24 rn 12/30 16:56 Order name: Labs collected and sent; Complete Time: 17:24 rn 12/30 16:56 Order name: NPO; Complete Time: 17:24 rn 12/30 16:56 Order name: O2 Per Protocol; Complete Time: 17:24 rn 12/30 16:56 Order name: O2 Sat Monitoring; Complete Time: 17:24 rn 12/30 16:56 Order name: Stroke Swallow Screen; Complete Time: 17:37 rn Administered Medications: No medications were administered Disposition Summary: 12/30/22 18:45 Discharge Ordered Location: Home rn Problem: new rn Symptoms: are unchanged rn Condition: Stable rn Diagnosis - Cerebral infarction, unspecified rn - Weakness rn - Slurred speech rn Followup: rn - With: Private Physician - When: As needed - Reason: Recheck today's complaints, Re-evaluation by your physician Discharge Instructions: - Discharge Summary Sheet rn - Stroke sheet metal journeyman - Weakness rn - Warning Signs of a Stroke rn Forms: - Medication Reconciliation Form rn - Thank You Letter rn - Antibiotic furniture sales consultant - Prescription Opioid Use rn NIH Stroke Scale - NIH Stroke Score Date: 12/30/2022 Time: 17:02 Total Score = 6 10. Dysarthria (speech clarity - read or repeat words) - 1(Mild to Moderate) 11. Extinction and Inattention (visual/tactile/auditory/spatial/personal) - 0(No abnormality) 1a. Level of Consciousness (LOC) - 0(Alert) 1b. Level of Consciousness (LOC) (Month \T\ Age) - 0(Both) 1c. LOC Commands (Open \T\ Closes Eyes/[place]a Architect) - 0(Both) 2. Best Gaze (Lateral Gaze Paresis) - 0(Normal) 3. Visual Field Loss - 0(No visual loss) 4. Facial Palsy - 2(Partial paralysis) 5a. Left Arm: Motor (10-second hold) - 1(Drift) 5b. Right Arm: Motor (10-second hold) - 0(No drift) 6a. Left Leg: Motor (5-second hold - always test supine) - 2(Drift, some effort against gravity) 6b. Right Leg: Motor (5-second hold - always test supine) - 0(No drift) 7. Limb Ataxia (finger/nose \T\ heel/raymundo - test with eyes open) - 0(Absent) 8. Sensory Loss (pinprick arms/legs/face) - 0(Normal) 9. Best Language: Aphasia (description/naming/reading) - 0(No aphasia) Initials: rn Signatures: Dispatcher [employer] EDYovanny Osuna MD MD rn Baxter, Heather, RN RN Corrections: (The following items were deleted from the chart) 17:13 16:58 Head Angio+CT.RAD.BRZ ordered. EDMS EDMS 17:14 16:58 Neck Angio+CT.RAD.BRZ ordered. EDMS EDMS
--- NOTE | 2023-01-13 16:07 | ER ---
Nurse's Notes [facility] [place] Name: Taye Lagunas Age: 62 yrs Sex: Male : 1960 Arrival Date: 12/30/2022 Time: 16:52 Bed 14 Private MD: Diagnosis: Cerebral infarction, unspecified;Weakness;Slurred speech Presentation: 12/30 16:53 Chief complaint: EMS states: snf reports left arm weakness, left facial droop, hb and slurred speech. Last known normal was 1130 today. Hx of previous stroke with profound bilateral lower extremity weakness. VS WNL, BGL 333. Coronavirus screen: At this time, the client does not indicate any symptoms associated with coronavirus-19. Ebola Screen: No symptoms or risks identified at this time. Initial Sepsis Screen: Does the patient meet any 2 criteria? No. Patient's initial sepsis screen is negative. Does the patient have a suspected source of infection? No. Patient's initial sepsis screen is negative. Risk Assessment: Do you want to hurt yourself or someone else? Patient reports no desire to harm self or others. Onset of symptoms was December 30, 2022. 16:53 Method Of Arrival: EMS: [facility] hb 16:53 Acuity: MADELINE 2 hb Historical: - Allergies: 16:55 No Known Allergies; hb - Immunization history:: Adult Immunizations up to date. - Family history:: not pertinent. - Social history:: Smoking status: Patient denies any tobacco usage or history of. - Hospitalizations: : No recent hospitalization is reported. Screenin:55 [facility] ED Fall Risk Assessment (Adult) Score/Fall Risk Level 3 or more points = High hb Risk Oriented to surroundings, Maintained a safe environment, Educated pt \T\ family on fall prevention, incl call for assistance when getting out of bed. Abuse screen: Denies threats or abuse. Denies injuries from another. Nutritional screening: No deficits noted. Tuberculosis screening: No symptoms or risk factors identified. 17:37 [place] Swallow Protocol Exclusion Criteria: No thin liquids due to preexisting hb dysphagia/baseline modified diet thickened liquids Yes (STOP, ST Cons) Exclusion Criteria Result: Defer \T\ Re-attempt. Assessment: 16:53 Reassessment: CODE STROKE CALLED, PT TO CT VIA STRETCHER WITH DANIELLE CRUZ. hb 16:53 Reassessment: BGL 233. hb 17:00 General: Appears in no apparent distress. Behavior is calm, cooperative. Pain: Denies hb pain. Neuro: Level of Consciousness is obeys commands, lethargic, Oriented to person, place, situation, Research Greenhouse Supervisor are weak on left Weakness in left Gait is unable to assess. Speech is slurred, Facial droop on left, Intact. Cardiovascular: Patient's skin is warm and dry. Respiratory: Respiratory effort is even, unlabored, Respiratory pattern is regular, symmetrical. GI: No signs and/or symptoms were reported involving the gastrointestinal system. : No signs and/or symptoms were reported regarding the genitourinary system. EENT: No signs and/or symptoms were reported regarding the EENT system. Derm: Skin is pink, warm \T\ dry. Musculoskeletal: Reports left sided weakness. 17:22 Reassessment: LABS SENT WITH PURPLE STROKE STICKER, LAB NOTIFIED. hb 18:16 Reassessment: Patient appears in no apparent distress at this time. No changes from hb previously documented assessment. Patient and/or family updated on plan of care and expected duration. Pain level reassessed. 19:31 Reassessment: Patient is alert, oriented x 3, equal unlabored respirations, skin kl warm/dry/pink. Patient denies pain at this time. pt refusing any further interventions refusing lang catheter. Vital Signs: 16:53 BP 101 / 69; Pulse 105; Resp 24; Temp 98.1; Pulse Ox 100% on R/A; Weight 74.84 kg; hb Height 5 ft. 3 in. ; Pain 0/10; 17:39 BP 125 / 62; Pulse 94; Resp 18; Pulse Ox 96% ; hb 18:16 BP 110 / 65; Pulse 89; Resp 17; Pulse Ox 98% on R/A; hb 16:53 Body Mass Index 29.23 (74.84 kg, 160.02 cm) hb 16:53 Pain Scale: Adult hb NIH Stroke Scale Scores: 17:02 NIHSS Score: 6 corporate communications intern Course: 16:52 Patient arrived in ED. eb 16:53 Danielle Williamson, RN is Primary Nurse. hb 16:55 Triage completed. hb 16:55 Yovanny Grant MD is Attending Physician. rn 16:55 Arm band placed on. hb 17:00 Patient has correct armband on for positive identification. hb 17:15 CT Stroke Brain w/o Contrast In Process Unspecified. EDMS 17:22 Stroke CXR 1 View In Process Unspecified. EDMS 17:24 Basic Metabolic Panel Sent. kc6 17:24 CBC with Diff Sent. kc6 17:24 High Sensitivity Troponin Sent. kc6 17:24 Protime (+inr) Sent. kc6 17:24 Ptt, Activated Sent. kc6 17:25 Maintain EMS IV. Dressing intact. Good blood return noted. Site clean \T\ dry. Gauge \T\ viv 6 site: 18G RAC. 19:32 No provider procedures requiring assistance completed. 19:48 IV discontinued, intact, bleeding controlled, No redness/swelling at site. Pressure kl dressing applied. Administered Medications: No medications were administered Medication: 17:00 VIS not applicable for this client. hb Outcome: 18:45 Discharge ordered by . rn 19:32 Discharged to retirement. Report called to darren baldwin 19:32 Condition: stable 19:32 Discharge instructions given to patient, family, Instructed on discharge instructions, Demonstrated understanding of instructions. 19:48 Patient left the ED. NIH Stroke Scale - NIH Stroke Score Date: 12/30/2022 Time: 17:02 Total Score = 6 10. Dysarthria (speech clarity - read or repeat words) - 1(Mild to Moderate) 11. Extinction and Inattention (visual/tactile/auditory/spatial/personal) - 0(No abnormality) 1a. Level of Consciousness (LOC) - 0(Alert) 1b. Level of Consciousness (LOC) (Month \T\ Age) - 0(Both) 1c. LOC Commands (Open \T\ Closes Eyes/Funeral Car Chauffeur) - 0(Both) 2. Best Gaze (Lateral Gaze Paresis) - 0(Normal) 3. Visual Field Loss - 0(No visual loss) 4. Facial Palsy - 2(Partial paralysis) 5a. Left Arm: Motor (10-second hold) - 1(Drift) 5b. Right Arm: Motor (10-second hold) - 0(No drift) 6a. Left Leg: Motor (5-second hold - always test supine) - 2(Drift, some effort against gravity) 6b. Right Leg: Motor (5-second hold - always test supine) - 0(No drift) 7. Limb Ataxia (finger/nose \T\ heel/raymundo - test with eyes open) - 0(Absent) 8. Sensory Loss (pinprick arms/legs/face) - 0(Normal) 9. Best Language: Aphasia (description/naming/reading) - 0(No aphasia) Initials: rn Signatures: Dispatcher [employer] Lisa Mazariegos, RN Yovanny Joseph MD MD rn Baxter, Heather, RN RN hb Botello, Elizabeth eb Campbell, Kaitlyn, RN RN kc6
== END 2022-12-30 19:48 | disposition home or self-care (01) ==
LOC: ER 16:45
DX: I63.9 Cerebral infarction, unspecified (principal); R47.81 Slurred speech; R29.706 NIHSS score 6; Z86.73 Personal history of transient ischemic attack (TIA), and cerebral infarction without residual deficits
CPT/HCPCS: 36415; 70450; 71045; 80048; 82565; 82947; 84484; 85025; 85610; 85730; 93005; 99283

== ENCOUNTER 2023-04-22 23:53 | Emergency (ER) | payer OTHER ==
[2023-04-23] MEDS ORDERED: ALBUMIN HUMAN 25% 100 ML IV ONE (01:34)
[2023-04-23 01:40] LABS: Absolute Lymphocytes (CBC) 3.5 K/uL (0.7-4.9); Hematocrit 28.6 % (39.6-49.0); Lymphocytes % 47.4 % (15.3-44.8); MCV 91.6 fL (80-100); MPV 7.8 fL (7.6-11.3); RBC Red Blood Cell Count 3.13 M/uL (4.33-5.43)
[2023-04-23 01:44] LABS: Protime INR 0.93
[2023-04-23] MEDS ORDERED: NA CHLORIDE 0.9% 2,000 ML ONE (01:58)
[2023-04-23 01:59] LABS: AST/SGOT 4 U/L (15-37); Albumin 2.6 g/dL (3.4-5.0); Alkaline Phosphatase 47 U/L (45-117); BUN Blood Urea Nitrogen 18 mg/dL (7-18); Bicarbonate 27 mEq/L (21-32); Bilirubin Total 0.1 mg/dL (0.2-1.0); Glomerular Filtration Rate 77 ml/min (=/>90); Glucose Level 112 mg/dL (74-106); Magnesium 2.6 mg/dL (1.6-2.4); NT PRO-BNP 324 pg/mL (<125); Potassium 4.4 mEq/L (3.5-5.1); Sodium Level 145 mEq/L (136-145); Troponin High Sensitivity 6.3 pg/mL (<58.9)
[2023-04-23 02:02] LABS: ALT/SGPT < 10 U/L (16-61); Bilirubin Direct < 0.1 mg/dL (0-0.2); Bilirubin Indirect, Calculated ND mg/dL (0.2-0.8)
[2023-04-23 02:36] LABS: Specific Gravity 1.016 (1.005-1.030); Urine Bacteria <20 /HPF (<20); Urine Bilirubin NEGATIVE (Negative); Urine Blood 2+ (Negative); Urine Clarity Clear (Clear); Urine Color Light-Yellow (Yellow); Urine Glucose NEGATIVE (Negative); Urine Protein TRACE (Negative); Urine RBC >50 /HPF (None Seen); Urine Urobilinogen Normal (Normal); Urine pH 6.5 (5.0-7.0)
[2023-04-23] MEDS ORDERED: CEFTRIAXONE 1000 MG/VIAL ONE (03:18)
--- NOTE | 2023-04-23 03:52 | EDPHYS ---
Physician Documentation [facility] Name: Taye Lagunas Age: 62 yrs Sex: Male : 1960 Arrival Date: 04/22/2023 Time: 23:53 Bed 7 Private MD: ED Physician Jose Talavera HPI: 04/23 00:08 This 62 yrs old Male presents to ER via Unassigned with complaints of Blood sp4 Pressure Problem. 00:08 62-year-old male bedbound shelter patient presents after he choked on the food at sp4 the shelter. 02:34 62-year-old male with extensive past medical history presents with EMS for concern of sp4 respiratory distress and also aspiration. Patient he has been immobilized for some time. He is bedbound is moderate to severe physical deconditioning.. . 02:39 With a past medical history of CVA, type 2 diabetes, acute kidney failure, chronic sp4 kidney disease, vascular dementia dysphagia, protein calorie malnutrition, aphasia, dysarthria, muscle wasting and atrophy, lack of coordination, spondylosis of lumbar region, hyperlipidemia, hypocalcemia, depression, physical debility, weight loss, intertrigo, hyperkalemia, urinary retention, obstructive uropathy, chronic pain, nausea, prostatic neoplasm, schizoaffective disorder, insomnia, constipation, anxiety, restlessness, coagulation factor deficiency, vitamin B deficiency, dementia, major depression, acute pain syndrome, essential hypertension, renal hypertension, BPH, multiple falls. Patient is on thickened liquid diet. Primary physician Dr. Sj Steel. Patient's medications include aspirin, atorvastatin, Depakote 250 mg 1 tablet twice a day, Depakote 500 mg 1 tablet twice a day, docusate finasteride Flomax, gabapentin, Humalog KwikPen insulin lispro sliding scale, hydralazine, insulin detemir 31 units once a day, lactulose, lisinopril 5 mg daily, metformin 500 mg twice a day, MiraLAX, risperidone 2 mg twice a day, Salonpas external patch, sertraline 100 mg 2 tabs once a day, Tylenol as needed. Patient has out of hospital DNR.. - Immunization history:: Adult Immunizations up to date. - Social history:: Smoking status: unknown. - Family history:: not pertinent. ROS: 02:39 Constitutional: Negative for fever, chills, and weight loss, patient on arrival has no sp4 specific complaints but he is not able to provide full ROS 02:39 Unable to obtain ROS due to Dementia. Exam: 02:39 Constitutional: This is a well developed, well nourished patient who is awake, alert, sp4 and in no acute distress. Patient is bedbound individual with moderate to severe physical deconditioning, diffuse muscular atrophy, overweight male, incontinent of bowel and bladder, nontoxic-appearing Head/Face: Normocephalic, atraumatic. Eyes: Pupils equal round and reactive to light, extra-ocular motions intact. Lids and lashes normal. Conjunctiva and sclera are not injected. Cornea within normal limits. Periorbital areas with no swelling, redness, or edema. ENT: Nares patent. No nasal discharge, no septal abnormalities noted. Tympanic membranes are normal and external auditory canals are clear. Oropharynx with no redness, swelling, or masses, exudates, or evidence of obstruction, uvula midline. Dry mucous membranes and poor dentition Neck: Trachea midline, no thyromegaly or masses palpated, and no cervical lymphadenopathy. Supple, full range of motion without nuchal rigidity, or vertebral point tenderness. Chest/axilla: Normal chest wall appearance and motion. Nontender with no deformity. No lesions are appreciated. Cardiovascular: Regular rate and rhythm with a normal S1 and S2. No gallops, murmurs, or rubs. Normal PMI, no JVD. No pulse deficits. Respiratory: Lungs have equal breath sounds bilaterally, clear to auscultation and percussion. No rales, rhonchi or wheezes noted. No increased work of breathing, no retractions or nasal flaring. Abdomen/GI: Soft, non-tender, with normal bowel sounds. No distension or tympany. No guarding or rebound. No evidence of tenderness throughout. Obese abdomen Back: No spinal tenderness. No costovertebral tenderness. Male : Normal genitalia with no discharge or lesions. Uncircumcised male Skin: Warm, dry with normal turgor. Normal color with no rashes, no lesions, and no evidence of cellulitis. MS/ Extremity: Pulses equal, no cyanosis. Neurovascular intact. Exam limited secondary to none mobile condition and diffuse bilateral lower extremity muscular atrophy with some contractures. Bilateral upper extremity exam is normal. Patient is nonambulatory Neuro: Awake and alert, GCS 15, oriented to person, Cranial nerves II-XII grossly intact. Upper extremity exam reveals normal strength, bilateral lower extremities exam is limited secondary to diffuse muscular atrophy and immobility 02:55 ECG was reviewed by the Attending Physician. EKG time 0 213, normal sinus rhythm at a sp4 rate of 73, no ST elevation or depression, no ectopy, normal EKG Vital Signs: 00:02 BP 104 / 58; Pulse 70; Resp 15; Temp 97.8(A); Pulse Ox 99% on 2 lpm NC; Weight 42.41 kg;kd3 00:32 BP 116 / 64; Pulse 72; Resp 15; Pulse Ox 97% on 2 lpm NC; kd3 02:06 BP 125 / 60; Pulse 73; Resp 15; Pulse Ox 100% on 2 lpm NC; kd3 02:25 BP 110 / 53; Pulse 66; Resp 18; Pulse Ox 100% on 2 lpm NC; kd3 04:08 BP 140 / 75; Pulse 74; Resp 16; Pulse Ox 100% on 2 lpm NC; kd3 MDM: 00:08 Patient medically screened. sp4 02:51 Differential Diagnosis altered mental status, sepsis, flu. Data reviewed: vital signs, sp4 nurses notes, EMS record, shelter records, diagnostic data from outside facility, old medical records, lab test result(s), EKG, radiologic studies, plain films. Consideration of Admission/Observation Escalation of care including admission/observation considered. ED course: EXAM DESCRIPTION: X Ray Chest Single View 1 VIEW CLINICAL HISTORY: 62 years Male, food aspiration COMPARISON: None. FINDINGS/IMPRESSION: 1. Prominence of the cardiomediastinal silhouette and central vasculature with mild bilateral interstitial opacities. Findings could be related to portable technique versus mild edema. 2. Left basilar atelectasis versus infiltrate. 3. No pneumothorax or pleural effusion.. ED course: Lab work today does not suggest acidosis or sepsis. Patient manifested with transiently decreased blood pressure but blood pressures improved after IV hydration and IV albumin. We have inserted a Castillo catheter for urinalysis which was causing patient mild hematuria. Patient will be administered Rocephin IV. And will be prescribed prophylactic Keflex in case there was some traumatic insertion and prostate damage. At this time Castillo can be disconnected patient can be sent back to shelter.. 03:43 ED course: Patient work-up is unremarkable and does not suggest acute bacterial or sp4 viral illness, no sign of sepsis, patient's transiently decreased blood pressure has improved with some albumin and IV hydration. Work-up is basically unremarkable. Patient will be prescribed cephalexin secondary to traumatic Castillo catheter insertion to prophylaxis from UTI and prostatitis . Patient is already on p.o. Flomax at the shelter and will advised to continue all medications at the shelter. On exam there is no sign of aspiration.. 03:52 ED course: For urinalysis patient had to get Castillo catheter which was difficult to sp4 insert and a coud catheter was used with some hematuria after insertion. Secondary to that patient was given IV Rocephin to prevent prostatitis secondary to traumatic Castillo insertion . Castillo catheter will be taken out . 04/23 01:09 Order name: Basic Metabolic Panel; Complete Time: 02:22 sp4 04/23 01:09 Order name: CBC with Diff; Complete Time: 02:22 sp4 04/23 01:09 Order name: LFT's; Complete Time: 02:22 sp4 04/23 01:09 Order name: Magnesium; Complete Time: 02:22 sp4 04/23 01:09 Order name: NT PRO-BNP; Complete Time: 02:22 sp4 04/23 01:09 Order name: PT-INR; Complete Time: 02:22 sp4 04/23 01:09 Order name: Troponin HS; Complete Time: 02:22 sp4 04/23 02:22 Order name: Urinalysis W/Microscopic; Complete Time: 02:51 sp4 04/23 00:08 Order name: Chest Single View XRAY sp4 04/23 01:09 Order name: EKG; Complete Time: 01:10 sp4 04/23 01:09 Order name: Cardiac monitoring; Complete Time: 02:19 sp4 04/23 01:09 Order name: EKG - Nurse/Tech; Complete Time: 02:19 sp4 04/23 01:09 Order name: IV Saline Lock; Complete Time: 01:56 sp4 04/23 01:09 Order name: Labs collected and sent; Complete Time: 01:57 sp4 04/23 01:09 Order name: O2 Per Protocol; Complete Time: :57 sp4 04/23 01:09 Order name: O2 Sat Monitoring; Complete Time: :57 sp4 04/23 01:09 Order name: Castillo; Complete Time: :56 sp4 EC:55 Rate is 73 beats/min. Rhythm is regular, Normal Sinus Rhythm. QRS [place] is Normal. NC sp4 interval is normal. QRS interval is normal. QT interval is normal. T waves are Normal. No ST changes noted. Clinical impression: No evidence of ischemia. Interpreted by me. Administered Medications: 01:53 Drug: NS 0.9% IV 1000 ml Route: IV; Rate: 1 bolus; Site: right antecubital; jb4 04:09 Follow up: IV Status: Completed infusion; IV Intake: 1000ml kd3 01:53 Drug: NS 0.9% IV 1000 ml Route: IV; Rate: 125 ml/hr; Site: right antecubital; jb4 04:09 Follow up: IV Status: Completed infusion; IV Intake: 250ml kd3 01:56 Drug: Albumin IVPB 25 grams Volume: 100 ml; Route: IVPB; Site: right antecubital; kd3 02:55 Follow up: IV Status: Completed infusion; IV Intake: 100ml kd3 03:11 Drug: Rocephin - Rocephin (cefTRIAXone) IVPB 1 grams Route: IVPB; Infused Over: 30 kd3 mins; Site: right antecubital; 04:09 Follow up: IV Status: Completed infusion kd3 Disposition Summary: 04/23/23 03:51 Discharge Ordered Location: Home sp4 Problem: new sp4 Symptoms: have improved sp4 Condition: Stable sp4 Diagnosis - Transient hypotension, physical debility, dyspnea, immobility complications, sp4 vascular dementia - Gross hematuria sp4 - Prostatic hypertrophy benign sp4 Followup: sp4 - With: Private Physician - When: 5 - 6 days - Reason: Recheck today's complaints Discharge Instructions: - Discharge Summary Sheet sp4 - Hematuria, Adult sp4 - Shortness of Breath, Adult, Zaap-da-Pn[facility] sp4 Forms: - SBAR form kd3 - [email or web address] sp4 Prescriptions: - Cephalexin 500 mg Oral Capsule - take 1 capsule by ORAL route every 8 hours for 10 days; 30 capsule; Refills: 0, sp4 Product Selection Permitted Signatures: Dispatcher [employer] Codey Leon, RN RN jb4 Stephanie Estrada RN RN kd3 Jose Talavera MD MD sp4
--- NOTE | 2023-04-23 03:52 | ER ---
Nurse's Notes [facility] Name: Taye Lagunas Age: 62 yrs Sex: Male : 1960 Arrival Date: 04/22/2023 Time: 23:53 Bed 7 Private MD: Diagnosis: Transient hypotension, physical debility, dyspnea, immobility complications, vascular dementia;Gross hematuria;Prostatic hypertrophy benign Presentation: 04/23 00:02 Chief complaint: EMS states: Pt is from [facility] in [place]. EMS kd3 was toned out for respiratory distress initially but when EMS arrived he was not in any respiratory distress and was at baseline. The nurses stated that they think he had just chocked on a chip despite being on thickened liquids, however pt's blood pressure was "a little low, so they requested him to be checked out". Coronavirus screen: Vaccine status:. Ebola Screen: No symptoms or risks identified at this time. Initial Sepsis Screen: Does the patient meet any 2 criteria? No. Patient's initial sepsis screen is negative. Does the patient have a suspected source of infection? No. Patient's initial sepsis screen is negative. Risk Assessment: Do you want to hurt yourself or someone else? Patient reports no desire to harm self or others. Onset of symptoms was April 23, 2023. 00:02 Method Of Arrival: EMS: [place] [facility] kd3 00:02 Acuity: MADELINE 4 kd3 Triage Assessment: 00:02 General: Appears in no apparent distress. Behavior is calm. Pain: Complains of pain in kd3 right leg. - Immunization history:: Adult Immunizations up to date. - Social history:: Smoking status: unknown. - Family history:: not pertinent. Screenin:32 [facility] ED Fall Risk Assessment (Adult) History of falling in the last 3 months, kd3 including since admission No falls in past 3 months (0 pts) Confusion or Disorientation Yes (5 pts) Intoxicated or Sedated No (0 pts) Impaired Gait Yes (1 pt) Mobility Assist Device Used No (0 pt) Altered Elimination No (0 pt) Score/Fall Risk Level 0 - 2 = Low Risk Maintained a safe environment. Abuse screen: Denies threats or abuse. Denies injuries from another. Nutritional screening: No deficits noted. Tuberculosis screening: No symptoms or risk factors identified. Assessment: 00:59 General: Appears in no apparent distress. Behavior is calm, cooperative. Neuro: Level kd3 of Consciousness is awake, obeys commands, Oriented to person, place. Respiratory: Airway is patent Trachea midline Respiratory effort is even, unlabored, Respiratory pattern is regular, symmetrical. 02:20 Cardiovascular: Rhythm is sinus rhythm. kd3 04:17 General: [facility] will not be able to come get the patient until 0645 am . kd3 Vital Signs: 00:02 BP 104 / 58; Pulse 70; Resp 15; Temp 97.8(A); Pulse Ox 99% on 2 lpm NC; Weight 42.41 kg;kd3 00:32 BP 116 / 64; Pulse 72; Resp 15; Pulse Ox 97% on 2 lpm NC; kd3 02:06 BP 125 / 60; Pulse 73; Resp 15; Pulse Ox 100% on 2 lpm NC; kd3 02:25 BP 110 / 53; Pulse 66; Resp 18; Pulse Ox 100% on 2 lpm NC; kd3 04:08 BP 140 / 75; Pulse 74; Resp 16; Pulse Ox 100% on 2 lpm NC; kd3 ED Course: 00:01 Patient arrived in ED. kd3 00:02 Arm band placed on right wrist. kd3 00:06 Jose Talavera MD is Attending Physician. sp4 00:09 Triage completed. kd3 00:32 Stephanie Estrada, ANTHONY is Primary Nurse. kd3 00:33 Patient has correct armband on for positive identification. kd3 00:35 Chest Single View XRAY In Process Unspecified. EDMS 01:57 LFT's Sent. kd3 01:57 Magnesium Sent. kd3 01:57 NT PRO-BNP Sent. kd3 01:57 Troponin HS Sent. kd3 02:05 Coud inserted, using sterile technique, 16 Fr. Returned cloudy urine. To gravity kd3 drainage. Urine specimen collected. Maintain EMS IV. Dressing intact. Good blood return noted. Site clean \\T\\ dry. Gauge \\T\\ site: 18 G R A/C. 04:08 No provider procedures requiring assistance completed. IV discontinued, intact, kd3 bleeding controlled, No redness/swelling at site. Pressure dressing applied. Removal of lang. Administered Medications: 01:53 Drug: NS 0.9% IV 1000 ml Route: IV; Rate: 1 bolus; Site: right antecubital; jb4 04:09 Follow up: IV Status: Completed infusion; IV Intake: 1000ml kd3 01:53 Drug: NS 0.9% IV 1000 ml Route: IV; Rate: 125 ml/hr; Site: right antecubital; jb4 04:09 Follow up: IV Status: Completed infusion; IV Intake: 250ml kd3 01:56 Drug: Albumin IVPB 25 grams Volume: 100 ml; Route: IVPB; Site: right antecubital; kd3 02:55 Follow up: IV Status: Completed infusion; IV Intake: 100ml kd3 03:11 Drug: Rocephin - Rocephin (cefTRIAXone) IVPB 1 grams Route: IVPB; Infused Over: 30 kd3 mins; Site: right antecubital; 04:09 Follow up: IV Status: Completed infusion kd3 Medication: 00:33 VIS not applicable for this client. kd3 Intake: 02:55 IV: 100ml; Total: 100ml. kd3 04:09 IV: 250ml; Total: 350ml. kd3 04:09 IV: 1000ml; Total: 1350ml. kd3 Outcome: 00:33 Condition: stable kd3 03:51 Discharge ordered by . sp4 04:09 Discharged to home kd3 04:09 Discharge instructions given to patient, Instructed on discharge instructions, follow up and referral plans. medication usage, Demonstrated understanding of instructions, Prescriptions given X 1. 04:18 Patient left the ED. kd3 Signatures: Dispatcher [employer] EDMS Codey Little RN RN jb4 Stephanie Estrada RN RN kd3 Jose Talavera MD MD sp4
[2023-04-23 04:24] VITALS: TEMP 97.8
[2023-04-23 04:27] VITALS: O2SAT 100
[2023-04-23 04:29] VITALS: BP 140/75
--- NOTE | 2023-04-23 11:16 | EKG ---
Test Date: 2023-04-23 Test Time: 02:13:01 Delivery Analyst: TINA MEASUREMENT RESULTS: Intervals: Rate: 73 AL: 148 QRSD: 82 QT: 364 QTc: 401 [place]: P: 47 AL: 148 QRS: 51 T: 78 INTERPRETIVE STATEMENTS: Normal sinus rhythm Nonspecific T wave abnormality Abnormal ECG Compared to ECG 12/30/2022 17:26:13 T-wave abnormality now present Right superior axis no longer present Incomplete right bundle-branch block no longer present Electronically Signed On 04-23-23 11:16:12 CDT by Ilan Ferrera
--- NOTE | 2023-04-23 21:32 | RAD REPORT ---
EXAM DESCRIPTION: RAD - Chest Single View - 04/23/2023 12:34 am CLINICAL HISTORY: 62 years Male, food aspiration COMPARISON: None. FINDINGS/IMPRESSION: 1. Prominence of the cardiomediastinal silhouette and central vasculature with mild bilateral interstitial opacities. Findings could be related to portable technique versus mild ed tong. 2. Left basilar atelectasis versus infiltrate. 3. No pneumothorax or pleural effusion. Electronically signed by: Sang Burns MD 04/23/2023 12:54 AM CDT Due to temporary technical issues with the PACS/Fluency reporting system, reports are being signed by the in house radiologists without review as a courtesy to insure prompt reporting. The interpreting radiologist is fully responsible for the content of the report.
== END 2023-04-23 04:18 | disposition home or self-care (01) ==
LOC: ER 23:53
DX: I95.89 Other hypotension (principal); R31.9 Hematuria, unspecified; N40.0 Benign prostatic hyperplasia without lower urinary tract symptoms; F01.50 Vascular dementia, unspecified severity, without behavioral disturbance, psychotic disturbance, mood disturbance, and anxiety; R54 Age-related physical debility
CPT/HCPCS: 96365; 96367; 93005; 85025; 81001; 80048; 36415; 83735; 85610; 80076; 84484; 83880; 71045; 99285; P9047; J7030; J0696

== ENCOUNTER 2023-08-04 09:32 | Inpatient (IN) | payer OTHER ==
[2023-08-04 10:09] LABS: Arterial Blood Carboxyhemoglob 1.4 % (0-1.5); Blood Gas Oxyhemoglobin 88.2 % (94-97); Blood O2 Saturation 90.7 % (92-98.5)
--- NOTE | 2023-08-04 10:16 | RAD REPORT ---
EXAM DESCRIPTION: RAD - Chest Single View - 08/04/2023 10:08 am CLINICAL HISTORY: COUGH COMPARISON: Chest Single View dated 04/23/2023; Chest Single View dated 12/30/2022 FINDINGS: Lines: None. Lungs: Low lung volumes. Basilar opacities noted. Pleural: No significant pleural effusions or pneumothorax. Cardiac: The heart size is within normal limits. Mediastinum: Within normal limits. Bones: No acute fractures. ACDF in the cervical spine. Other: None IMPRESSION: Low lung volumes with mild basilar opacities which probably reflects atelectasis.
[2023-08-04 10:34] LABS: Specific Gravity 1.025 (1.005-1.030); Urine Bacteria None Seen /HPF (<20); Urine Bilirubin NEGATIVE (Negative); Urine Blood Negative (Negative); Urine Clarity Clear (Clear); Urine Color Yellow (Yellow); Urine Glucose NEGATIVE (Negative); Urine Mucus Slight /HPF (None Seen); Urine Protein TRACE (Negative); Urine RBC <5 /HPF (None Seen); Urine Urobilinogen Normal (Normal)
[2023-08-04 10:48] LABS: Absolute Lymphocytes (CBC) 0.8 K/uL (0.7-4.9); Hematocrit 30.4 % (39.6-49.0); Lymphocytes % 9.9 % (15.3-44.8); MCV 96.6 fL (80-100); MPV 8.2 fL (7.6-11.3); Platelets 204 thou/uL (152-406); RBC Red Blood Cell Count 3.15 M/uL (4.33-5.43)
[2023-08-04 10:59] LABS: Protime INR 1.31
[2023-08-04] MEDS ORDERED: NYSTATIN 500,000 UNIT/5 ML UDC PO ONE (11:01)
[2023-08-04 11:08] LABS: AST/SGOT 7 U/L (15-37); Albumin 2.3 g/dL (3.4-5.0); Alkaline Phosphatase 48 U/L (45-117); BUN Blood Urea Nitrogen 46 mg/dL (7-18); Bicarbonate 23 mEq/L (21-32); Bilirubin Total 0.3 mg/dL (0.2-1.0); Creatine Phosphokinase 139 U/L (39-308); Glomerular Filtration Rate 25 ml/min (=/>90); Glucose Level 115 mg/dL (74-106); Magnesium 2.2 mg/dL (1.6-2.4); NT PRO-BNP 4012 pg/mL (<125); Potassium 5.1 mEq/L (3.5-5.1); Protein, Total 6.7 g/dL (6.4-8.2); Sodium Level 144 mEq/L (136-145)
[2023-08-04 11:09] LABS: ALT/SGPT < 10 U/L (16-61)
[2023-08-04] MEDS ORDERED: NA CHLORIDE 0.9% 250 ML ONE (11:38)
[2023-08-04] MEDS ORDERED: NA CHLORIDE 0.9% 2,000 ML ONE (11:38)
[2023-08-04] MEDS ORDERED: VANCOMYCIN 1 GM/VIAL ONE (11:38)
[2023-08-04] MEDS ORDERED: CEFEPIME 2 GM VIAL ONE (11:38)
[2023-08-04] MEDS ORDERED: NA CHLORIDE 0.9% 100 ML ONE (11:38)
--- NOTE | 2023-08-04 11:43 | ER ---
Nurse's Notes [facility] Name: Taye Lagunas Age: 62 yrs Sex: Male : 1960 Arrival Date: 08/04/2023 Time: 09:32 Bed 8 Private MD: Diagnosis: Hypotension;Lactic acidosis Presentation: 08/04 09:35 Chief complaint: EMS states: toned out to [facility] for low blood ld1 pressure. EMS reports BP of 70/40, upon arrival to ER pt BP 98/56. Coronavirus screen: At this time, the client does not indicate any symptoms associated with coronavirus-19. Ebola Screen: No symptoms or risks identified at this time. Initial Sepsis Screen: Does the patient meet any 2 criteria? RR > 20 per min. Systolic BP < 90 mmHg. HR > 90 bpm. Yes Does the patient have a suspected source of infection? Yes: Productive cough/pneumonia. Risk Assessment: Do you want to hurt yourself or someone else? Patient reports no desire to harm self or others. Onset of symptoms was August 04, 2023. 09:35 Method Of Arrival: EMS: [facility] ld1 09:35 Acuity: MADELINE 3 ld1 Triage Assessment: 09:38 General: Appears in no apparent distress. comfortable, Behavior is calm, cooperative, ld1 appropriate for age. Pain: Denies pain. EENT: No signs and/or symptoms were reported regarding the EENT system. Neuro: Level of Consciousness is awake, alert, obeys commands, Oriented to person, place, time, situation. Cardiovascular: Capillary refill < 3 seconds Patient's skin is warm and dry. Rhythm is sinus tachycardia. Respiratory: Airway is patent Respiratory effort is even, labored. Respiratory: Respiratory effort is Sputum is thick, Breath sounds with crackles Breath sounds with rales bilaterally. GI: Abdomen is round non-distended. : No signs and/or symptoms were reported regarding the genitourinary system. Derm: No signs and/or symptoms reported regarding the dermatologic system. Musculoskeletal: No signs and/or symptoms reported regarding the musculoskeletal system. Historical: - Allergies: 09:38 No Known Allergies; ld1 - PMHx: 09:38 aphasia; weakness; Anxiety; Depressive disorder; Acute kidney failure; Diabetes ld1 mellitus; CVA; spondylolysis; BPH; Blood pressure problem; - Immunization history:: Adult Immunizations up to date. - Social history:: Smoking status: Patient denies any tobacco usage or history of. Patient/guardian denies using alcohol. Screenin:45 [facility] ED Fall Risk Assessment (Adult) History of falling in the last 3 months, ld1 including since admission No falls in past 3 months (0 pts). Abuse screen: Denies threats or abuse. Denies injuries from another. Nutritional screening: No deficits noted. Tuberculosis screening: No symptoms or risk factors identified. Assessment: 09:45 Reassessment: See triage assessment. ld1 10:45 Reassessment: Patient appears in no apparent distress at this time. No changes from ld1 previously documented assessment. Family at bedside with patient. Pt AAOx2. 12:00 Reassessment: Patient appears in no apparent distress at this time. No changes from ld1 previously documented assessment. 13:30 Reassessment: Patient appears in no apparent distress at this time. No changes from ld1 previously documented assessment. Patient states symptoms have not improved. 14:10 Reassessment: Patient appears in no apparent distress at this time. No changes from ld1 previously documented assessment. 14:11 Reassessment: Pt repeatedly taking NC off and pulling off pulse ox. Notified pt that he ld1 needs to leave it on. Pt states "I don't like it.". Vital Signs: 09:35 BP 98 / 56; Pulse 108; Resp 22; Temp 98.6(O); Pulse Ox 96% on 4 lpm NC; ld1 10:44 BP 105 / 58; Pulse 105; Resp 20; Pulse Ox 95% on 4 lpm NC; ld1 11:23 Weight 71.21 kg; ld1 11:42 BP 112 / 66; Pulse 112; Resp 25; Pulse Ox 92% on 4 lpm NC; ld1 14:10 BP 131 / 58; Pulse 113; Resp 29; Pulse Ox 90% on 4 lpm NC; ld1 ED Course: 09:35 Patient arrived in ED. ld1 09:38 Triage completed. ld1 09:38 Arm band placed on right wrist. ld1 09:39 Lemuel Pritchett MD is Attending Physician. rt 09:45 Patient has correct armband on for positive identification. Placed in gown. Bed in low ld1 position. Call light in reach. Side rails up X2. quality assurance monitor body on. Pulse ox on. NIBP on. Door closed. Noise minimized. Warm blanket given. 09:45 No provider procedures requiring assistance completed. Maintain EMS IV. Dressing ld1 intact. Good blood return noted. Site clean \\T\\ dry. Gauge \\T\\ site: 20G RAC. 10:10 Chest Single View XRAY In Process Unspecified. EDMS 10:27 Urinalysis w/ reflexes Sent. ld1 10:44 Geetha Clemente, ANTHONY is Primary Nurse. ld1 11:42 Jadiel Hurd MD is Hospitalizing Provider. rt 14:41 Patient admitted, IV remains in place. ld1 Administered Medications: 11:32 Drug: Cefepime IVPB 2 grams IVPB at 200 ml/hr once over 30 mins; (mix in NS 100 mL) ph Route: IVPB; Rate: 200 ml/hr; Infused Over: 30 mins; Site: right antecubital; 11:33 Drug: nystatin PO Suspension [id number] units PO once; swish and spit Route: PO; ph 11:33 Drug: NS 0.9% IV (30 ml/kg) 30 ml/kg IV at bolus once; Sepsis Protocol Route: IV; Rate: ph bolus; Site: right antecubital; 12:29 Drug: vancoMYCIN IVPB 1 grams IVPB once over 2 hrs Route: IVPB; Infused Over: 2 hrs; ld1 Site: right antecubital; Medication: 14:41 VIS not applicable for this client. ld1 Outcome: 11:42 Decision to Hospitalize by Provider. rt 14:40 Admitted to Med/surg accompanied by tech, via stretcher, room 401, with chart, Report ld1 called to ANTHONY Noble 14:40 Condition: stable 14:40 Instructed on the need for admit, 15:04 Patient left the ED. ld1 Signatures: Dispatcher [employer] EDChristiana Herrera RN RN ph Geetha Clemente RN RN ld1 Lemuel Pritchett MD MD rt
--- NOTE | 2023-08-04 11:43 | EDPHYS ---
Physician Documentation [facility] Name: Taye Lagunas Age: 62 yrs Sex: Male : 1960 Arrival Date: 08/04/2023 Time: 09:32 Bed 8 Private MD: ED Physician Lemuel Pritchett HPI: 08/04 10:36 This 62 yrs old Male presents to ER via EMS with complaints of Blood Pressure Problem. rt 10:36 Patient presents to the ED from intermediate with unresponsiveness, reported rt hypotension to 70s systolic. History is limited due to patient with advanced dementia. He reports that pain in his throat and difficulty breathing. Denies other acute complaints at this time. Symptoms reportedly have improved from his mental status standpoint since EMS arrived. No further treatment 15, symptoms are moderate severity, no other aggravating or alleviating factors.. Historical: - Allergies: 09:38 No Known Allergies; ld1 - PMHx: 09:38 aphasia; weakness; Anxiety; Depressive disorder; Acute kidney failure; Diabetes ld1 mellitus; CVA; spondylolysis; BPH; Blood pressure problem; - Immunization history:: Adult Immunizations up to date. - Social history:: Smoking status: Patient denies any tobacco usage or history of. Patient/guardian denies using alcohol. ROS: 10:36 Unable to obtain ROS due to baseline dementia, rt Exam: 10:36 Constitutional: This is a well developed, well nourished patient who is awake, alert, rt and in no acute distress. Neck: Trachea midline, no thyromegaly or masses palpated, and no cervical lymphadenopathy. Supple, full range of motion without nuchal rigidity, or vertebral point tenderness. No Meningismus. Chest/axilla: Normal chest wall appearance and motion. Nontender with no deformity. No lesions are appreciated. Cardiovascular: Regular rate and rhythm with a normal S1 and S2. No gallops, murmurs, or rubs. Normal PMI, no JVD. No pulse deficits. Abdomen/GI: Soft, non-tender, with normal bowel sounds. No distension or tympany. No guarding or rebound. No evidence of tenderness throughout. Skin: Warm, dry with normal turgor. Normal color with no rashes, no lesions, and no evidence of cellulitis. MS/ Extremity: Pulses equal, no cyanosis. Neurovascular intact. Full, normal range of motion. 10:36 ENT: Thrush in oropharynx. 10:36 ECG was reviewed by the Attending Physician. 10:36 Respiratory: Coarse breath sounds diffusely, mild respiratory distress, Vital Signs: 09:35 BP 98 / 56; Pulse 108; Resp 22; Temp 98.6(O); Pulse Ox 96% on 4 lpm NC; ld1 10:44 BP 105 / 58; Pulse 105; Resp 20; Pulse Ox 95% on 4 lpm NC; ld1 11:23 Weight 71.21 kg; ld1 11:42 BP 112 / 66; Pulse 112; Resp 25; Pulse Ox 92% on 4 lpm NC; ld1 14:10 BP 131 / 58; Pulse 113; Resp 29; Pulse Ox 90% on 4 lpm NC; ld1 MDM: 09:39 Patient medically screened. rt 11:42 Differential Diagnosis altered mental status, flu, Hypotension, dehydration. Data rt reviewed: vital signs, nurses notes. Consideration of Admission/Observation Patient was admitted/placed on observation. Management of patient was discussed with the following: Hospitalist: Agrees to admit. I considered the following discharge prescriptions or medication management in the emergency department Medications were administered in the Emergency Department. See MAR. Counseling: I had a detailed discussion with the patient and/or guardian regarding the historical points, exam findings, and any diagnostic results supporting the discharge/admit diagnosis, lab results, radiology results, the need for further work-up and treatment in the hospital. ED course: Patient initially afebrile, no clear source of infection, therefore, held antibiotics and fluids initially. Once lactate came back, despite not having a clear source of infection I elected to give 30 cc/kg bolus as the patient has no history of congestive heart failure. Patient also with acute kidney injury. Patient to be admitted for further care.. 08/04 09:49 Order name: Blood Culture Adult (2) rt 08/04 09:49 Order name: CBC with Diff; Complete Time: 11:11 rt 08/04 09:49 Order name: CMP; Complete Time: 11:11 rt 08/04 09:49 Order name: Lactate w/ 2H reflex if indic.; Complete Time: 11:11 rt 08/04 09:49 Order name: Protime (+inr); Complete Time: 11:11 rt 08/04 09:49 Order name: Ptt, Activated; Complete Time: 11:11 rt 08/04 09:49 Order name: Urinalysis w/ reflexes; Complete Time: 11:11 rt 08/04 09:49 Order name: ABG; Complete Time: 10:26 rt 08/04 09:49 Order name: Troponin High Sensitivity; Complete Time: 11:11 rt 08/04 09:49 Order name: BNP; Complete Time: 11:11 rt 08/04 09:49 Order name: CPK; Complete Time: 11:11 rt 08/04 09:49 Order name: Magnesium; Complete Time: 11:11 rt 08/04 12:22 Order name: Procalcitonin EDMS 08/04 12:35 Order name: Basic Metabolic Panel EDMS 08/04 12:35 Order name: Basic Metabolic Panel EDMS 08/04 12:35 Order name: Basic Metabolic Panel EDMS 08/04 12:35 Order name: Basic Metabolic Panel EDMS 08/04 12:35 Order name: CBC with Automated Diff EDMS 08/04 12:35 Order name: CBC with Automated Diff EDMS 08/04 12:35 Order name: CBC with Automated Diff EDMS 08/04 12:35 Order name: CBC with Automated Diff EDMS 08/04 12:35 Order name: Magnesium EDMS 08/04 12:35 Order name: Magnesium EDMS 08/04 12:35 Order name: Magnesium EDMS 08/04 12:35 Order name: Magnesium EDMS 08/04 12:35 Order name: Phosphorus EDMS 08/04 12:35 Order name: Phosphorus EDMS 08/04 12:35 Order name: Phosphorus EDMS 08/04 12:35 Order name: Phosphorus EDMS 08/04 09:49 Order name: Chest Single View XRAY; Complete Time: 10:26 rt 08/04 09:49 Order name: EKG; Complete Time: 09:49 rt 08/04 09:49 Order name: Accucheck; Complete Time: 10:03 rt 08/04 09:49 Order name: Cardiac monitoring; Complete Time: 09:51 rt 08/04 09:49 Order name: EKG - Nurse/Tech; Complete Time: 10:02 rt 08/04 09:49 Order name: IV Saline Lock - Large Bore; Complete Time: 10:02 rt 08/04 09:49 Order name: Labs collected and sent; Complete Time: 10:44 rt 08/04 09:49 Order name: O2 Per Protocol; Complete Time: :51 rt 08/04 09:49 Order name: O2 Sat Monitoring; Complete Time: :51 rt 08/04 09:49 Order name: Vital Signs; Complete Time: :51 rt EC:36 Rate is 110 beats/min. Rhythm is regular, Sinus tachycardia with No ectopy. Right axis rt deviation noted. NM interval is normal. QRS interval is normal. QT interval is normal. No Q waves. Clinical impression: NSR w/ Non-specific ST/T Changes. Administered Medications: 11:32 Drug: Cefepime IVPB 2 grams IVPB at 200 ml/hr once over 30 mins; (mix in NS 100 mL) ph Route: IVPB; Rate: 200 ml/hr; Infused Over: 30 mins; Site: right antecubital; 11:33 Drug: nystatin PO Suspension 323120 units PO once; swish and spit Route: PO; ph 11:33 Drug: NS 0.9% IV (30 ml/kg) 30 ml/kg IV at bolus once; Sepsis Protocol Route: IV; Rate: ph bolus; Site: right antecubital; 12:29 Drug: vancoMYCIN IVPB 1 grams IVPB once over 2 hrs Route: IVPB; Infused Over: 2 hrs; ld1 Site: right antecubital; Disposition Summary: 08/04/23 11:42 Hospitalization Ordered Notes: Hospitalization Status: Inpatient Admission rt Provider: Jadiel Hurd rt Location: Telemetry/[facility] (Inpatient) rt Condition: Fair rt Problem: new rt Symptoms: have improved rt Bed/Room Type: Standard rt Room Assignment: 401(08/04/23 13:50) eb Diagnosis - Hypotension rt - Lactic acidosis rt Forms: - Medication Reconciliation Form rt - SBAR form rt - Leadership Thank You Letter rt Critical care time excluding procedures: 11:42 Critical care time: Bedside Care: 30 minutes, Consultation: 5 minutes. Total time: 35 rt minutes Signatures: Dispatcher [employer] Christiana Pizarro RN RN Jenna Ibrahim Lauren, RN RN ld1 Lemuel Pritchett MD MD rt Corrections: (The following items were deleted from the chart) 13:50 11:42 rt eb
[2023-08-04] MEDS ORDERED: ONDANSETRON 4 MG/2 ML VIAL IV PRN ×2 (12:24→13:58)
[2023-08-04] MEDS ORDERED: NA CHLORIDE 0.9% 250 ML IV PRN (12:24)
[2023-08-04] MEDS ORDERED: ACETAMINOPHEN 500 MG TAB PO PRN (12:24)
[2023-08-04] MEDS ORDERED: DOXYCYCLINE 100 MG in NA CHLORIDE 0.9% 100 ML IVPB SCH (12:30)
--- NOTE | 2023-08-04 13:07 | P.HP ---
Certification for Inpatient With expected LOS: <2 Midnights Patient will require the following post-hospital care: None Practitioner: I am a practitioner with admitting privileges, knowledge of patient current condition, hospital course, and medical plan of care. Services: Services provided to patient in accordance with Admission requirements found in Title 42 Section 412.3 of the Code of Federal Regulations Patient History Date of Service: 08/04/23 Primary Care Provider: Jadiel Seaman Reason for admission: Septic shock, lactic acidosis hypoxia, hypotension History of Present Illness: [place] a 62-year-old male with a history of diabetes mellitus, CVA, spondylitis cysts, BPH, depressive disorder, acute kidney failure, presented to the ER with complaints of blood pressure being low in the care home. The cybrir-ni-ewi at bedside who is giving the history. The care home called patient's family members due to low blood pressure to the 70s systolic this morning history is limited due to patient with advanced dementia. Historian denies fever chills, nausea vomiting, chest pain, shortness of breath. The ED course: Vital signs blood pressure 98/56, pulse 108, respiration 22, pulse ox 96 on oxygen 2 L via nasal cannula. Heart rate is 110/min in sinus tachycardia, no ectopy, right axis deviation, ID interval is normal, QRS interval is normal, QT interval is normal and no Q waves. Patient was given normal saline 30 mill per KG IV bolus x1 IV antibiotics cefepime IV piggyback 2 g given over 30 minutes. Laboratory findings significant for BUN 46, creatinine 2.83, GFR 25, lactic acid 4.2, arterial blood gas showing PCO2 33.1 PO2 64.1 bicarb 18.9 oxygenation 88.2. Chest x-ray shows low lung volumes with mild basilar opacities with probably reflects atelectasis. Admitting the patient with a diagnosis of septic shock, hypotension lactic acidosis.. Allergies No Known Allergies Allergy (Unverified 08/04/23 10:13) Physical Examination - Studies Laboratory Data (last 24 hrs) 08/04/23 08/04/23 08/04/23 10:39 10:39 10:39 WBC 8.10 Hgb 10.3 L Hct 30.4 L Plt Count 204 PT 14.4 H INR 1.31 APTT 30.4 Sodium 144 Potassium 5.1 BUN 46 H Creatinine 2.83 H Glucose 115 H Magnesium 2.2 Total Bilirubin 0.3 AST 7 L ALT < 10 L Alkaline Phosphatase 48 Assessment and Plan - Plan Assessment and plan Assessment Septic Shock Hypotension Hypoxia Lactic acidosis Encephalopathy CVA Aphasia, left-sided weakness, depression Septic Shock Hypertension Hypoxia Lactic acidosis Encephalopathy CVA Aphasia, left-sided weakness, depression Plan Septic Shock Hypotension Hypoxia Lactic acidosis * Patient nidhi from care home with hypotension and hypoxia, responded to fluids in the ER blood pressure is 112/68 * Will continue to monitor the blood pressure closely * Normal saline 30 mill per KG body weight IV bolus given * Broad-spectrum antibiotic was given in the ER * Admitting the patient in ICU, discussed the plan of care with the family member in the room * Family reports that the patient is DNR status * To continue ceftriaxone and doxycycline * Continue IV hydration D5 half NS at 100 mL/h * DVT prophylaxis with heparin as patient's GFR is 25 * Putting the patient on insulin sliding scale every 6 hours with regular insulin * Will monitor the CBC electrolytes * Will monitor lactic acid after 2 hours * Patient's SPO2 is 90% on room air * Titrate FiO2 to keep the oxygen saturation above 92%, as needed BiPAP as needed, * Will monitor the patient close * Blood cultures x 2 ordered Encephalopathy * chronic, worsened likely due to hypotension and hypoxia. Patient is now responding to verbal command , but make sounds to deep pain * Labs Laboratory findings significant for BUN 46, creatinine 2.83, GFR 25, lactic acid 4.2, * arterial blood gas showing PCO2 33.1 PO2 64.1 bicarb 18.9 oxygenation 88.2. * Urinnalysis: negative CVA Aphasia, left-sided weakness, depression * Chronic, bedbound, lives in the care home * Will continue the current medications and monitor DVT prophylaxis heparin Diet n.p.o. CODE STATUS :DNR - Advance Directives Does patient have a Living Will: No Does patient have a Durable POA for Healthcare: No
[2023-08-04] MEDS ORDERED: NA CHLORIDE 0.9% 500 ML IV ONE (13:36)
[2023-08-04] MEDS ORDERED: NA CHLORIDE 0.9% 500 ML IV PRN ×2 (13:48→17:00)
--- NOTE | 2023-08-04 13:49 | EKG ---
Test Date: 2023-08-04 Test Time: 09:58:57 Deckhand Clam Dredge: JANES MEASUREMENT RESULTS: Intervals: Rate: 110 HI: 148 QRSD: 72 QT: 324 QTc: 438 Shipman: P: 73 HI: 148 QRS: 232 T: 54 INTERPRETIVE STATEMENTS: Sinus tachycardia Right superior axis deviation Right ventricular hypertrophy Abnormal ECG Compared to ECG 04/23/2023 02:13:01 Right superior axis now present Right ventricular hypertrophy now present Sinus rhythm no longer present T-wave abnormality no longer present Electronically Signed On 08-04-23 13:48:14 CDT by Ilan Ferrera
--- NOTE | 2023-08-04 15:05 | P.PN ---
Subjective Date of Service: 08/04/23 Primary Care Provider: Jadiel Seaman Chief Complaint: Septic shock, lactic acidosis hypoxia, hypotension Patient is resting , arrousable to call, breathing normally on o2 5LPM via nasal canula. No family at bedside. Review of Systems 10-point ROS is otherwise unremarkable General: Unremarkable Eyes: Redness ENT: Unremarkable Respiratory: Unremarkable Gastrointestinal: Unremarkable Genitourinary: Unremarkable Musculoskeletal: As per HPI Neurological: Unremarkable Physical Examination - Physical Exam General: Other (arrousable to callm aphasic) Neck: Supple, 2+ carotid pulse no bruit Respiratory: Clear to auscultation bilaterally, Normal air movement Cardiovascular: No edema, Normal pulses, No murmurs Capillary refill: <2 Seconds Gastrointestinal: No ascites, No masses, No rebound, No guarding Musculoskeletal: No clubbing, No contractures, No erythema, No tenderness, No warmth Integumentary: No rashes, No erythema, No warmth Neurological: Other (bed confined, left hmiplegia, aphasic) - Studies Laboratory Data (last 24 hrs) 08/04/23 08/04/23 08/04/23 10:39 10:39 10:39 WBC 8.10 Hgb 10.3 L Hct 30.4 L Plt Count 204 PT 14.4 H INR 1.31 APTT 30.4 Sodium 144 Potassium 5.1 BUN 46 H Creatinine 2.83 H Glucose 115 H Magnesium 2.2 Total Bilirubin 0.3 AST 7 L ALT < 10 L Alkaline Phosphatase 48 Assessment And Plan - Plan Assessment and plan Assessment Septic Shock Hypotension Hypoxia Lactic acidosis Encephalopathy CVA Aphasia, left-sided weakness, depression Septic Shock Hypertension Hypoxia Lactic acidosis Encephalopathy CVA Aphasia, left-sided weakness, depression Plan Septic Shock Hypotension Hypoxia Lactic acidosis * Patient nidhi from [facility] with hypotension and hypoxia, responded to fl uids in the ER blood pressure is 112/68 * Will continue to monitor the blood pressure closely * Normal saline 30 mill per KG body weight IV bolus given * Broad-spectrum antibiotic was given in the ER * Admitting the patient in ICU, discussed the plan of care with the family member in the room * Family reports that the patient is DNR status * To continue ceftriaxone and doxycycline * Continue IV hydration D5 half NS at 100 mL/h * DVT prophylaxis with heparin as patient's GFR is 25 * Putting the patient on insulin sliding scale every 6 hours with regular insulin * Will monitor the CBC electrolytes * Will monitor lactic acid after 2 hours * Patient's SPO2 is 90% on room air * Titrate FiO2 to keep the oxygen saturation above 92%, as needed BiPAP as needed, * Will monitor the patient close * Blood cultures x 2 ordered Encephalopathy * chronic, worsened likely due to hypotension and hypoxia. Patient is now responding to verbal command , but make sounds to deep pain * Labs Laboratory findings significant for BUN 46, creatinine 2.83, GFR 25, lactic acid 4.2, * arterial blood gas showing PCO2 33.1 PO2 64.1 bicarb 18.9 oxygenation 88.2. * Urinnalysis: negative CVA Aphasia, left-sided weakness, depression * Chronic, bedbound, lives in the [facility] * Will continue the current medications and monitor DVT prophylaxis heparin Diet n.p.o. CODE STATUS :DNR Discharge Plan: [facility] Plan to discharge in: 72 Hours - Code Status/Comfort Care Code Status Assessed: Yes (DNR) Physician Review: Patient Assessed, Agree with Above Assessment and Plan Critical Care: No Time Spent Managing PTS Care (In Minutes): 40 (min)
[2023-08-04] MEDS: ALBUTEROL 2.5 MG/3 ML NEB SOL NEB SCH ×2 (15:13→19:35)
[2023-08-04] MEDS: IPRATROPIUM BROM 0.5MG/2.5ML NEB SCH ×2 (15:13→19:35)
[2023-08-04 15:39] LABS: Absolute Lymphocytes (CBC) 1.3 K/uL (0.7-4.9); Hematocrit 32.5 % (39.6-49.0); MCV 97.4 fL (80-100); MPV 8.6 fL (7.6-11.3); Platelets 188 thou/uL (152-406); RBC Red Blood Cell Count 3.34 M/uL (4.33-5.43)
[2023-08-04 15:50] LABS: Magnesium 2.3 mg/dL (1.6-2.4); Phosphorus 3.4 mg/dL (2.5-4.9); Potassium 4.8 mEq/L (3.5-5.1)
[2023-08-04 15:59] LABS: Arterial Blood Carboxyhemoglob 0.9 % (0-1.5); Blood Gas Oxyhemoglobin 85.5 % (94-97); Blood O2 Saturation 87.5 % (92-98.5)
[2023-08-04] MEDS ORDERED: INSULIN REGULAR (HUMAN) 100 UNIT/ML SQ SCH (16:30)
[2023-08-04] MEDS: LORazepam 2 MG/ML VIAL IV ONE ×2 (16:45→16:57)
[2023-08-04] MEDS: D5 0.45 NS 1,000 ML IV SCH ×2 (16:48→23:00)
[2023-08-04] MEDS: HEPARIN 5000 UNIT/ML 1 ML VIAL SQ SCH (17:00)
[2023-08-04] MEDS ORDERED: VANCOMYCIN 750 MG in NA CHLORIDE 0.9% 150 ML IVPB ONE (18:00)
[2023-08-04] MEDS: INSULIN REGULAR (HUMAN) 100 UNIT/ML SQ SCH (18:00)
[2023-08-04] MEDS: DOCUSATE NA 100 MG CAP PO SCH (20:30)
[2023-08-04] MEDS: CEFEPIME 2 GM in NA CHLORIDE 0.9% 100 ML IV SCH (20:30)
[2023-08-04] MEDS ORDERED: CEFTRIAXONE 1,000 MG in NA CHLORIDE 0.9% 50 ML IVPB SCH (21:00)
[2023-08-05] MEDS: HEPARIN 5000 UNIT/ML 1 ML VIAL SQ SCH ×2 (01:30→07:44)
[2023-08-05] MEDS: ALBUTEROL 2.5 MG/3 ML NEB SOL NEB SCH ×4 (02:00→19:25)
[2023-08-05] MEDS: IPRATROPIUM BROM 0.5MG/2.5ML NEB SCH ×6 (02:00→19:25)
[2023-08-05] MEDS: D5 0.45 NS 1,000 ML IV SCH ×3 (02:32→22:51)
[2023-08-05 05:17] LABS: Absolute Lymphocytes (CBC) 0.5 K/uL (0.7-4.9); Hematocrit 28.7 % (39.6-49.0); Lymphocytes % 9.7 % (15.3-44.8); MCV 96.2 fL (80-100); MPV 8.5 fL (7.6-11.3); Platelets 149 thou/uL (152-406); RBC Red Blood Cell Count 2.99 M/uL (4.33-5.43)
[2023-08-05 05:31] LABS: Phosphorus 2.9 mg/dL (2.5-4.9); Potassium 4.4 mEq/L (3.5-5.1)
[2023-08-05] MEDS: INSULIN REGULAR (HUMAN) 100 UNIT/ML SQ SCH ×4 (06:00→17:16)
[2023-08-05] MEDS: CEFEPIME 2 GM in NA CHLORIDE 0.9% 100 ML IV SCH ×2 (07:44→20:42)
[2023-08-05] MEDS: DOCUSATE NA 100 MG CAP PO SCH ×2 (09:00→20:43)
--- NOTE | 2023-08-05 10:43 | P.CNS ---
Date of Consult: 08/05/23 Primary Care Provider: Jadiel Seaman Chief Complaint: Possible septic shock hypoxemia History of Present Illness: Patient is 62 years of age and alf resident multiple medical problems including dementia was admitted from the alf with apparently low blood pressure requiring higher levels of oxygen possibility of aspiration she is currently stable alert responsive cooperative vital signs are all stable his oxygen requirements had increased a little bit Allergies No Known Allergies Allergy (Unverified 08/04/23 10:13) Home Medications: Aspirin 81 mg PO DAILY 08/04/23 Atorvastatin Calcium [Lipitor] 20 mg PO BEDTIME 08/04/23 Divalproex [Depakote Sprinkle] 750 mg PO BID 08/04/23 Docusate Sodium [Colace] 50 mg PO BID 08/04/23 Finasteride 5 mg PO DAILY 08/04/23 Gabapentin 100 mg PO TID 08/04/23 Hydralazine [Apresoline] 10 mg PO BID 08/04/23 Lisinopril [Zestril] 5 mg PO DAILY 08/04/23 Lisinopril [Zestril] 5 mg PO DAILY 08/04/23 Metformin ER [Glucophage ER] 500 mg PO BID 08/04/23 Risperidone [Risperdal] 1.5 mg PO BEDTIME 08/04/23 Sertraline [Zoloft] 100 mg PO DAILY 08/04/23 Tamsulosin [Flomax*] 0.4 mg PO BID 08/04/23 - Social History Smoking Status: Unknown if ever smoked Alcohol use: No CD- Drugs: No Caffeine use: No Place of Residence: Group Home Review of Systems is unable to be obtained Physical Examination Temp Pulse Resp BP Pulse Ox 99.1 F 114 H 27 H 129/67 96 08/05/23 08:00 08/05/23 10:00 08/05/23 10:00 08/05/23 10:00 08/05/23 10:00 General: Alert, Cooperative Neck: Supple Respiratory: Clear to auscultation bilaterally, Diminished Cardiovascular: Edema Gastrointestinal: Normal bowel sounds, Soft and benign Laboratory Data (last 24 hrs) 08/04/23 08/04/23 08/04/23 10:39 10:39 10:39 WBC 8.10 Hgb 10.3 L Hct 30.4 L Plt Count 204 PT 14.4 H INR 1.31 APTT 30.4 Sodium 144 Potassium 5.1 BUN 46 H Creatinine 2.83 H Glucose 115 H Magnesium 2.2 Total Bilirubin 0.3 AST 7 L ALT < 10 L Alkaline Phosphatase 48 - Problems (1) Sepsis Current Visit: Yes Status: Acute Plan: Patient is 62 years of age alf resident admitted with presumed septic shock elevated lactic acid chest x-ray shows diminished lung volumes he has renal failure which is improving cultures are so far negative patient's blood gas shows hypoxemia appears to have an acidosis blood cultures urinalysis so far negative currently on high flow oxygen is a possibility of pulmonary embolism empirically anticoagulate the patient able to do a CT pulmonary angiogram in view of his renal failure which may improve with IV fluids for now. Echocardiogram consider Dobbhoff
[2023-08-05] MEDS: ENOXAPARIN 80 MG/0.8 ML SQ SCH ×2 (11:59→20:45)
[2023-08-05 12:51] LABS: Absolute Lymphocytes (CBC) 0.8 K/uL (0.7-4.9); Hematocrit 24.7 % (39.6-49.0); Lymphocytes % 11.9 % (15.3-44.8); MCV 95.8 fL (80-100); MPV 8.2 fL (7.6-11.3); Platelets 149 thou/uL (152-406); RBC Red Blood Cell Count 2.58 M/uL (4.33-5.43)
[2023-08-05 13:05] LABS: Magnesium 1.8 mg/dL (1.6-2.4); Potassium 4.2 mEq/L (3.5-5.1)
--- NOTE | 2023-08-05 13:15 | P.PN ---
Subjective Date of Service: 08/05/23 Primary Care Provider: Jadiel Seaman Chief Complaint: Possible septic shock hypoxemia No events overnight. He is slightly more awake this morning. He is alert and oriented x2 to person and place. He reports shortness of breath and a dry cough. His oxygen requirements have increased, and he is now on high flow nasal cannula (30 L, FiO2 70%). Pulmonology has been consulted. Review of Systems 10-point ROS is otherwise unremarkable Respiratory: Cough, Shortness of Breath Physical Examination - Vital Signs Temperature: 99.3 F Blood Pressure: 126/43 Pulse: 104 Respirations: 13 Pulse Ox (%): 97 - Physical Exam General: Alert, In no apparent distress, Oriented x2 HEENT: Atraumatic, Mucous membr. moist/pink, Sclerae nonicteric Neck: JVD not distended Respiratory: Diminished, Rhonchi/gurgles (scattered) Cardiovascular: No edema, Regular rate/rhythm, Normal S1 S2, No gallops, No rubs, No murmurs Gastrointestinal: Normal bowel sounds, Soft and benign, Non-distended, No tenderness, No rebound, No guarding Musculoskeletal: No clubbing Integumentary: No rashes Neurological: Normal speech, Normal affect - Studies Microbiology Data (last 24 hrs): 08/04/23 11:20 Blood - Blood Anaerobic Blood Culture - Final 08/04/23 11:14 Blood - Blood Anaerobic Blood Culture - Final Assessment And Plan - Plan # Septic Shock likely secondary to Aspiration Pneumonia # Acute Toxic Metabolic Encephalopathy due to above - improved He meets sepsis criteria based on HR > 90 bpm and RR > 20 breaths/min, and the suspected source is pulmonary. Severe sepsis is suspected due to concern for tissue hypoperfusion/organ dysfunction based on creatinine >2.0 mg/dL (without ESRD) and lactic acid > 2 mmol/L. Septic shock is suspected due to initial lactate > 4 mmol/L. - Evaluation: - History consistent with aspiration - Procalcitonin = 2.13 - Chest x-ray = "low lung volumes with mild basilar opacities which probably reflects atelectasis." - Sepsis order set was initiated - Lactate trend: 4.2 -> 3.7 -> 3.8 -> 4.2 -> 2.2 -> 2.2 - Blood cultures drawn - Broad spectrum antibiotics started: Vancomycin + Cefepime - In regards to fluids: - 30 mL/kg of IV Normal Saline was given based on patient's actual body weight - Sepsis reassessment completed at 15:04 on 08/04/2023 by Viola Santamaria NP # Acute Hypoxemic Respiratory Failure - likely secondary to Aspiration Pneumonia - Evaluation thus far: - Procalcitonin = 2.13 - Chest x-ray = "low lung volumes with mild basilar opacities which probably reflects atelectasis." - Initial ABG = pH 7.38, PCO2 33.1, PO2 64.1 - V/Q scan = pending - Management plan: - Consulted Pulmonology - recommendations appreciated - Consulted Respiratory Therapy - Supplemental oxygen to maintain SpO2 > 92% - Currently on HFNC (30 L, FiO2 70 %) - Continue antibiotics as mentioned above - Start empiric therapuetic enoxaparin pending V/Q results - Encouraged incentive spirometry # KDIGO Stage II Acute Kidney Injury likely due to above - Creatinine = 2.83 -> 2.35 -> 1.78 -> 1.47 - Urinalysis = trace ketone, trace protein - Monitor creatinine and urine output - If worsening, obtain renal ultrasound - Renally dose medications # History of Cerebrovascular Accident # Hypertension - Reconcile home medications once verified # Depression - Continue home divalproex, risperidone, sertraline # Goals of Care I had an extensive goals of care discussion with his two sisters at bedside. I explained to them that his prognosis is guarded at this time. They emphasized that he is a DNR/DNI. I reviewed the physiology of septic shock and explained how vasopressors may be necessary if his disease process was to progress. They stated that he would be okay with vasopressor support; however, he is not okay with chest compressions, intubation, or defibrillation. We also discussed the possibility of a PEG tube due to his recurrent aspiration events. They stated that they are unsure about PEG tube placement, but would like to think about it over the next day or so to determine what would be most consistent with his wishes. Jadiel Hurd M.D.
[2023-08-05] MEDS: GABAPENTIN 100 MG CAP PO SCH ×2 (14:00→20:43)
--- NOTE | 2023-08-05 19:19 | RAD REPORT ---
EXAM DESCRIPTION: RAD - Abdomen 1 View (KUB) - 08/05/2023 7:12 pm CLINICAL HISTORY: Device placement Dobhoff tube placement FINDINGS: The tip of a Dobhoff tube lies in the gastric fundus 9 centimeters from the GE junction
[2023-08-05] MEDS: RISPERIDONE 1 MG TABLET PO SCH (20:43)
--- NOTE | 2023-08-05 20:44 | RAD REPORT ---
EXAM DESCRIPTION: USExtrem Venous W Compress Bil08/05/2023 8:28 pm CLINICAL HISTORY: Leg pain COMPARISON: none FINDINGS: The common femoral, superficial femoral, greater saphenous, popliteal and posterior tibial veins bilaterally are compressible and demonstrate augmentation. Doppler demonstrates good flow. Grayscale, color and spectral analysis performed on all vessels IMPRESSION: No evidence of deep venous thrombosis involving either lower extremity.
[2023-08-05] MEDS: DIVALPROEX NA 125 MG CAP PO SCH (20:45)
[2023-08-05] MEDS ORDERED: VITAL AF 1,000 ML BOT FT SCH (22:00)
[2023-08-06] MEDS: VANCOMYCIN 1.25 GM in NA CHLORIDE 0.9% 250 ML IVPB SCH (00:53)
[2023-08-06] MEDS: ALBUTEROL 2.5 MG/3 ML NEB SOL NEB SCH ×2 (01:20→08:00)
[2023-08-06] MEDS: IPRATROPIUM BROM 0.5MG/2.5ML NEB SCH ×3 (01:20→08:00)
[2023-08-06 04:55] LABS: Absolute Lymphocytes (CBC) 1.3 K/uL (0.7-4.9); Hematocrit 26.1 % (39.6-49.0); Lymphocytes % 16.6 % (15.3-44.8); MPV 8.5 fL (7.6-11.3); Platelets 150 thou/uL (152-406); RBC Red Blood Cell Count 2.72 M/uL (4.33-5.43)
[2023-08-06 05:07] LABS: Phosphorus 2.3 mg/dL (2.5-4.9); Potassium 3.7 mEq/L (3.5-5.1)
[2023-08-06] MEDS: INSULIN REGULAR (HUMAN) 100 UNIT/ML SQ SCH ×4 (06:06→17:08)
[2023-08-06] MEDS: DOCUSATE NA 100 MG CAP PO SCH ×2 (08:38→20:36)
[2023-08-06] MEDS: D5 0.45 NS 1,000 ML IV SCH (08:38)
[2023-08-06] MEDS: CEFEPIME 2 GM in NA CHLORIDE 0.9% 100 ML IV SCH ×2 (08:38→20:35)
[2023-08-06] MEDS: SERTRALINE HCL 100 MG TAB PO SCH (08:38)
[2023-08-06] MEDS: DIVALPROEX NA 125 MG CAP PO SCH ×2 (08:39→20:35)
[2023-08-06] MEDS: FINASTERIDE 5 MG TAB PO SCH (08:39)
[2023-08-06] MEDS: GABAPENTIN 100 MG CAP PO SCH ×3 (08:39→20:36)
[2023-08-06] MEDS: ENOXAPARIN 80 MG/0.8 ML SQ SCH (08:39)
[2023-08-06] MEDS ORDERED: VITAL AF 1,000 ML BOT FT SCH (09:00)
--- NOTE | 2023-08-06 09:11 | RAD REPORT ---
EXAM DESCRIPTION: CT - Chest For Pe Angio - 08/06/2023 7:53 am CLINICAL HISTORY: Chest pain. eval for PE COMPARISON: Extrem Venous W Compress Lenin dated 08/05/2023 TECHNIQUE: CT angiogram of the pulmonary arteries was performed with MIP. All CT scans are performed using dose optimization technique as appropriate and may include automated exposure control or mA/KV adjustment according to patient size. FINDINGS: No evidence of pulmonary thromboembolism. No acute aortic finding demonstrated. Moderate bilateral pulmonary opacities are present greatest in the lower lobes as well as the posteri or segment of left upper lobe. Most likely this represents infiltrate/pneumonia. Trace left pleural effusion. Enteric tube descends into the stomach. No concerning bony finding. IMPRESSION: No evidence of pulmonary thromboembolism. Bilateral pulmonary opacities are present in both lower lobes as well as posterior segment left upper lobe likely representing pneumonia.
[2023-08-06] MEDS ORDERED: ALBUTEROL 2.5 MG/3 ML NEB SOL NEB PRN (11:53)
--- NOTE | 2023-08-06 11:55 | P.PN ---
Subjective Date of Service: 08/06/23 Primary Care Provider: Jadiel Seaman Chief Complaint: Respiratory failure Patient's condition is stable hemodynamically stable at the bedside his baseline he is basically bedbound able to feed him CT scan shows bilateral pneumonia currently unresponsive has a nasogastric tube feed Review of Systems is unable to be obtained Physical Examination - Vital Signs Temperature: 97.6 F Blood Pressure: 140/84 Pulse: 92 Respirations: 25 Pulse Ox (%): 96 - Physical Exam General: Unresponsive Respiratory: Clear to auscultation bilaterally, Diminished Cardiovascular: No edema, Regular rate/rhythm, Normal S1 S2 - Studies Microbiology Data (last 24 hrs): 08/04/23 11:20 Blood - Blood Anaerobic Blood Culture - Final 08/04/23 11:14 Blood - Blood Anaerobic Blood Culture - Final Assessment And Plan - Current Problems (Diagnosis) (1) Sepsis Current Visit: Yes Status: Acute Plan: Patient is 62 years of age and long-term resident. With bilateral pneumonia chemistries reviewed cultures are so far negative he has a nasogastric tube in place will await for speech evaluation still continues to remain hypoxic there is no evidence of pulmonary embolism titrate sat to 90% at the bedside we will DC IV fluids for now water flushes Qualifiers: Sepsis type: sepsis due to unspecified organism Sepsis acute organ dysfunction status: without acute organ dysfunction Qualified Code(s): A41.9 - Sepsis, unspecified organism Physician Review: Patient Assessed, Agree with Above Assessment and Plan
--- NOTE | 2023-08-06 14:22 | P.PN ---
Subjective Date of Service: 08/06/23 Primary Care Provider: Jadiel Seaman Chief Complaint: Respiratory failure No new events. Family and MPOA have consented to placement of Dobhoff, which was placed overnight. He has been started on tube feeds and appears to be gradually improving. He is alert and oriented x2 to person and place. He reports shortness of breath and a dry cough. His oxygen requirements have decreased compared to yesterday, and he is now on high flow nasal cannula (25 L, FiO2 40%). Review of Systems is unable to be obtained Physical Examination - Vital Signs Temperature: 97.2 F Blood Pressure: 128/61 Pulse: 75 Respirations: 19 Pulse Ox (%): 99 - Studies Microbiology Data (last 24 hrs): 08/04/23 11:20 Blood - Blood Anaerobic Blood Culture - Final 08/04/23 11:14 Blood - Blood Anaerobic Blood Culture - Final Assessment And Plan - Plan - Physical Exam General: Alert, In no apparent distress, Oriented x2 HEENT: Atraumatic, Mucous membr. moist/pink, Sclerae nonicteric, NG tube in place Neck: JVD not distended Respiratory: Diminished, Rhonchi/gurgles (scattered) Cardiovascular: No edema, Regular rate/rhythm, No murmurs Gastrointestinal: Normal bowel sounds, Soft and benign, Non-distended, No tenderness Integumentary: No rashes Neurological: Normal speech, Normal affect # Septic Shock likely secondary to Aspiration Pneumonia # Acute Toxic Metabolic Encephalopathy due to above - improved He meets sepsis criteria based on HR > 90 bpm and RR > 20 breaths/min, and the suspected source is pulmonary. Severe sepsis is suspected due to concern for tissue hypoperfusion/organ dysfunction based on creatinine >2.0 mg/dL (without ESRD) and lactic acid > 2 mmol/L. Septic shock is suspected due to initial lactate > 4 mmol/L. - Evaluation: - History consistent with aspiration - Procalcitonin = 2.13 - Chest x-ray = "low lung volumes with mild basilar opacities which probably reflects atelectasis." - CT chest angiogram = "no evidence of pulmonary thromboembolism. Bilateral pulmonary opacities are present in both lower lobes as well as posterior segment left upper lobe likely representing pneumonia." - Sepsis order set was initiated - Lactate trend: 4.2 -> 3.7 -> 3.8 -> 4.2 -> 2.2 -> 2.2 - Blood cultures drawn - Broad spectrum antibiotics started: Vancomycin + Cefepime - In regards to fluids: - 30 mL/kg of IV Normal Saline was given based on patient's actual body weight - Sepsis reassessment completed at 15:04 on 08/04/2023 by Viola Santamaria NP # Acute Hypoxemic Respiratory Failure - likely secondary to Aspiration Pneumonia - Evaluation thus far: - Procalcitonin = 2.13 - Chest x-ray = "low lung volumes with mild basilar opacities which probably reflects atelectasis." - Initial ABG = pH 7.38, PCO2 33.1, PO2 64.1 - CT chest angiogram = "no evidence of pulmonary thromboembolism. Bilateral pulmonary opacities are present in both lower lobes as well as posterior segment left upper lobe likely representing pneumonia." - Management plan: - Consulted Pulmonology - recommendations appreciated - Consulted Respiratory Therapy - Supplemental oxygen to maintain SpO2 > 92% - Currently on HFNC (25 L, FiO2 40 %) - Continue antibiotics as mentioned above - Encouraged incentive spirometry # KDIGO Stage II Acute Kidney Injury likely due to above - Creatinine = 2.83 -> 2.35 -> 1.78 -> 1.47 -> 1.05 - Urinalysis = trace ketone, trace protein - Monitor creatinine and urine output - If worsening, obtain renal ultrasound - Renally dose medications # History of Cerebrovascular Accident # Hypertension - Reconcile home medications once verified # Depression - Continue home divalproex, risperidone, sertraline # Goals of Care I had an extensive goals of care discussion with his two sisters at bedside. I explained to them that his prognosis is guarded at this time. They emphasized that he is a DNR/DNI. I reviewed the physiology of septic shock and explained how vasopressors may be necessary if his disease process was to progress. They stated that he would be okay with vasopressor support; however, he is not okay with chest compressions, intubation, or defibrillation. We also discussed the possibility of a PEG tube due to his recurrent aspiration events. They stated that they are unsure about PEG tube placement, but would like to think about it over the next day or so to determine what would be most consistent with his wishes. - Family and MPOA have consented to Dobhoff, which was placed. He is currently on tube feeds Jadiel Hurd M.D.
[2023-08-06] MEDS ORDERED: POTASSIUM PHOS IN 0.9 % NACL 15 MMOL/250 ML BAG IV ONE (16:43)
[2023-08-06] MEDS: RISPERIDONE 1 MG TABLET PO SCH (20:35)
--- NOTE | 2023-08-07 05:11 | P.PN ---
Date of Service: 08/07/23 Subjective: Physical Exam: Vitals: reviewed GEN: Alert, orientedx2, NAD HEENT: Normal conjunctiva, sclera anicteric, NG tube in place CV: Regular rate & rhythm, no edema Pulm: Diminished, Rhonchi/gurgles (scattered) ABD: Soft, nontender, nondistended MSK: No joint tenderness Integumentary: No rashes Neuro: Normal speech, normal affect Problem List: Septic Shock likely secondary to Aspiration Pneumonia Acute Toxic Metabolic Encephalopathy due to above, improved Acute Hypoxemic Respiratory Failure - likely secondary to Aspiration Pneumonia BETHANIE History of CVA Hypertension Depression Goals of Care PLAN CTA chest(08/06): no PE; Bilateral pulmonary opacities are present in both lower lobes as well as posterior segment left upper lobe likely representing pneumonia Continue empiric vanc / cefepime follow blood cultures Pulm consulted currently on 4L NC Wean oxygen as tolerated Encouraged incentive spirometry PRN nebs Continue IV fluids Monitor renal function Renally dose medications confirm home medications, restart as appropriate Continue home divalproex, risperidone, sertraline Family and MPOA have consented to Dobhoff, which was placed. He is currently on tube feeds DVT prophylaxis: Lovenox
[2023-08-07] MEDS: INSULIN REGULAR (HUMAN) 100 UNIT/ML SQ SCH ×5 (06:00→20:40)
[2023-08-07] MEDS: ENOXAPARIN 40 MG/0.4 ML SQ SCH (08:37)
[2023-08-07] MEDS: CEFEPIME 2 GM in NA CHLORIDE 0.9% 100 ML IV SCH ×2 (08:37→20:58)
[2023-08-07] MEDS: GABAPENTIN 100 MG CAP PO SCH ×3 (09:00→19:59)
[2023-08-07] MEDS: FINASTERIDE 5 MG TAB PO SCH (09:00)
[2023-08-07] MEDS: SERTRALINE HCL 100 MG TAB PO SCH (09:00)
[2023-08-07] MEDS: DIVALPROEX NA 125 MG CAP PO SCH (09:00)
[2023-08-07] MEDS: DOCUSATE NA 100 MG CAP PO SCH ×2 (09:00→19:59)
[2023-08-07 09:48] LABS: Absolute Lymphocytes (CBC) 1.1 K/uL (0.7-4.9); Hematocrit 26.2 % (39.6-49.0); Lymphocytes % 14.5 % (15.3-44.8); MCV 95.1 fL (80-100); MPV 8.4 fL (7.6-11.3); Platelets 166 thou/uL (152-406); RBC Red Blood Cell Count 2.75 M/uL (4.33-5.43)
[2023-08-07 09:59] LABS: AST/SGOT 17 U/L (15-37); Albumin 1.7 g/dL (3.4-5.0); Alkaline Phosphatase 61 U/L (45-117); BUN Blood Urea Nitrogen 21 mg/dL (7-18); Bicarbonate 21 mEq/L (21-32); Bilirubin Total 0.3 mg/dL (0.2-1.0); Glomerular Filtration Rate 103 ml/min (=/>90); Glucose Level 124 mg/dL (74-106); Magnesium 1.9 mg/dL (1.6-2.4); Potassium 3.7 mEq/L (3.5-5.1); Protein, Total 5.8 g/dL (6.4-8.2); Sodium Level 144 mEq/L (136-145)
[2023-08-07 10:01] LABS: ALT/SGPT < 10 U/L (16-61)
[2023-08-07] MEDS: NA CHLORIDE 0.9% IV SCH ×2 (10:02→21:42)
[2023-08-07] MEDS: VALPROATE SODIUM IV SCH ×2 (10:02→21:42)
[2023-08-07] MEDS ORDERED: POTASSIUM PHOS IN 0.9 % NACL 15 MMOL/250 ML BAG IV ONE (14:00)
--- NOTE | 2023-08-07 14:39 | RAD REPORT ---
EXAM DESCRIPTION: RAD - Barium Swallow Modified - 08/07/2023 2:33 pm CLINICAL HISTORY: Aspiration COMPARISON: No comparisons TECHNIQUE: The patient was given liquid, semi-solid and solid forms of barium. Lateral view fluorosc opic imaging was performed in conjunction with speech pathology service. FINDINGS: Delayed onset of swallowed noted. No aspiration was observed. Total fluoroscopy time: 2 minutes 24 seconds
[2023-08-07] MEDS: VANCOMYCIN 1.25 GM in NA CHLORIDE 0.9% 250 ML IVPB SCH (14:50)
[2023-08-07] MEDS ORDERED: GLUCAGON 1 MG/VIAL IM PRN (16:03)
[2023-08-07] MEDS ORDERED: D10W 250 ML BAG IV PRN (16:13)
[2023-08-07] MEDS: RISPERIDONE 1 MG TABLET PO SCH (19:58)
--- NOTE | 2023-08-08 07:13 | ECHO ---
HEIGHT: 5 ft 7 in WEIGHT: 172 lb 3.2 oz DATE OF STUDY: 08/07/[address]: Viola Santamaria NP 2-DIMENSIONAL: YES M.MODE: YES DOPPLER: YES COLOR FLOW: YES TDS: YES PORTABLE: YES DEFINITY: BUBBLE STUDY: DIAGNOSIS: SEPTIC SHOCK CARDIAC HISTORY: CATHERIZATION: NO SURGERY: NO PROSTHETIC VALVE: NO PACEMAKER: NO MEASUREMENTS (cm) DIASTOLIC (NORMALS) SYSTOLIC (NORMALS) IVSd 1.3 (0.6-1.2) LA Diam 2.6 (1.9-4.0) LVEF 57% LVIDd 3.4 (3.5-5.7) LVIDs 2.4 (2.0-3.5) %FS 29% LVPWd 1.3 (0.6-1.2) Ao Diam 2.9 (2.0-3.7) 2 DIMENSIONAL ASSESSMENT: RIGHT ATRIUM: NORMAL LEFT ATRIUM: NORMAL RIGHT VENTRICLE: NORMAL LEFT VENTRICLE: NORMAL TRICUSPID VALVE: NORMAL MITRAL VALVE: NORMAL PULMONIC VALVE: NORMAL AORTIC VALVE: NORMAL PERICARDIAL EFFUSION: NONE AORTIC ROOT: NORMAL LEFT VENTRICULAR WALL MOTION: NORMAL DOPPLER/COLOR FLOW: NORMAL COMMENTS: 1. POOR WINDOWS 2. OVERALL LEFT VENTRICULAR EJECTION FRACTION IS NORMAL 55-60% WITH NORMAL WALL MOTION TECHNOLOGIST: ANURADHA ALMODOVAR
[2023-08-08] MEDS: INSULIN REGULAR (HUMAN) 100 UNIT/ML SQ SCH ×4 (07:30→20:48)
[2023-08-08] MEDS: ENOXAPARIN 40 MG/0.4 ML SQ SCH ×2 (09:00→09:01)
[2023-08-08] MEDS: SERTRALINE HCL 100 MG TAB PO SCH (09:01)
[2023-08-08] MEDS: FINASTERIDE 5 MG TAB PO SCH (09:01)
[2023-08-08] MEDS: CEFEPIME 2 GM in NA CHLORIDE 0.9% 100 ML IV SCH ×2 (09:01→20:18)
[2023-08-08] MEDS: DOCUSATE NA 100 MG CAP PO SCH ×2 (09:01→20:18)
[2023-08-08] MEDS: GABAPENTIN 100 MG CAP PO SCH ×3 (09:02→20:18)
[2023-08-08] MEDS: NA CHLORIDE 0.9% IV SCH ×2 (09:46→20:18)
[2023-08-08] MEDS: VALPROATE SODIUM IV SCH ×2 (09:46→20:18)
[2023-08-08] MEDS: RISPERIDONE 1 MG TABLET PO SCH (20:18)
[2023-08-08] MEDS: JUVEN PACKET PO SCH (20:18)
[2023-08-08] MEDS: ENSURE ENLIVE 237 ML CAN PO SCH (20:18)
[2023-08-09 00:54] LABS: Phosphorus 1.9 mg/dL (2.5-4.9); Potassium 3.8 mEq/L (3.5-5.1)
[2023-08-09] MEDS: VANCOMYCIN 1.25 GM in NA CHLORIDE 0.9% 250 ML IVPB SCH (01:00)
[2023-08-09 04:06] VITALS: O2SAT 92
[2023-08-09 05:58] VITALS: BMI 26.7
[2023-08-09] MEDS ORDERED: POTASSIUM PHOS IN 0.9 % NACL 15 MMOL/250 ML BAG IV ONE (06:00)
[2023-08-09] MEDS: INSULIN REGULAR (HUMAN) 100 UNIT/ML SQ SCH ×3 (07:30→16:16)
[2023-08-09] MEDS: NA CHLORIDE 0.9% IV SCH (08:34)
[2023-08-09] MEDS: CEFEPIME 2 GM in NA CHLORIDE 0.9% 100 ML IV SCH (08:34)
[2023-08-09] MEDS: VALPROATE SODIUM IV SCH (08:34)
[2023-08-09] MEDS: ENSURE ENLIVE 237 ML CAN PO SCH (08:35)
[2023-08-09] MEDS: FINASTERIDE 5 MG TAB PO SCH (08:35)
[2023-08-09] MEDS: GABAPENTIN 100 MG CAP PO SCH ×2 (08:35→15:08)
[2023-08-09] MEDS: DOCUSATE NA 100 MG CAP PO SCH (08:36)
[2023-08-09] MEDS: SERTRALINE HCL 100 MG TAB PO SCH (08:36)
[2023-08-09] MEDS: ENOXAPARIN 40 MG/0.4 ML SQ SCH (08:36)
[2023-08-09] MEDS: JUVEN PACKET PO SCH (08:37)
--- NOTE | 2023-08-09 09:36 | RAD REPORT ---
EXAM DESCRIPTION: RAD - Chest Single View - 08/09/2023 9:21 am CLINICAL HISTORY: pneumonia Chest pain. COMPARISON: Abdomen 1 View (KUB) dated 08/05/2023; Chest Single View dated 08/04/2023; Chest Single View dated 04/23/2023; Chest Single View dated 12/30/2022; Chest For Pe Angio dated 08/06/2023 FINDINGS: Portable technique limits examination quality. Mild patchy opacity seen in both lung bases with a the left mid lung which may represent pneumonia. T he heart is mildly enlarged in size. No displaced fractures. IMPRESSION: Mild bilateral pneumonia pattern persists, however does appear moderately improved relat lashon to 08/06/2023 CT study.
[2023-08-09 12:24] VITALS: BP 141/60; TEMP 97.2
[2023-08-10] MEDS ORDERED: VANCOMYCIN 1.25 GM in NA CHLORIDE 0.9% 250 ML IVPB SCH (01:00)
== END 2023-08-09 16:18 | DRG 871 ==
LOC: ER 09:32 → ERHOLD 12:22 → 4TH 13:52 → 3RD-ICU 18:00 → 4TH 08-07 14:00
PROVIDERS: ADMIT Internal Medicine; ATTEND Hospitalist
PROC: 5A09557 Assistance with Respiratory Ventilation, Greater than 96 Consecutive Hours, Continuous Positive Airway Pressure (ICD-10-PCS; principal; 2023-08-04)
DX: A41.9 Sepsis, unspecified organism (principal); G92.8 Other toxic encephalopathy; R65.21 Severe sepsis with septic shock; J69.0 Pneumonitis due to inhalation of food and vomit; J96.01 Acute respiratory failure with hypoxia; N17.9 Acute kidney failure, unspecified; E87.20 Acidosis, unspecified; F03.93 Unspecified dementia, unspecified severity, with mood disturbance; I69.354 Hemiplegia and hemiparesis following cerebral infarction affecting left non-dominant side; I69.320 Aphasia following cerebral infarction; E11.9 Type 2 diabetes mellitus without complications; N40.0 Benign prostatic hyperplasia without lower urinary tract symptoms; I95.9 Hypotension, unspecified; Z66 Do not resuscitate; Z74.01 Bed confinement status; Z79.82 Long term (current) use of aspirin; Z79.84 Long term (current) use of oral hypoglycemic drugs; Z79.899 Other long term (current) drug therapy
CPT/HCPCS: 36415; 36600; 71045; 71275; 74018; 74230; 80048; 80053; 80202; 81001; 82550; 82805; 82947; 83605; 83735; 83880; 84100; 84145; 84484; 85025; 85610; 85730; 87040; 92526; 92610; 92611; 93005; 93306; 93970; 94640; 94660; 94760; 96374; 96375; 99285; J0692; J1644; J1650; J1815; J7030; J7050; J7613; J7644; J7799; Q9967

== ENCOUNTER 2023-09-23 15:15 | Emergency (ER) | payer OTHER ==
--- OUTSIDE RECORDS SUMMARY | 2023-09-23 15:35 | XMS REPORT | Continuity of Care Document ---
:1960 Author Organization [facility] t Address [address] [facility] [place] [address] Care Team Providers Name Role Phone JENNA PADRON Primary Care Physician Unavailable GISELE_MEET_Jyoti Attending Clinician Unavailable Jaylin Morris Attending Clinician Unavailable Sj Steel Attending Clinician [phone] Julia Valenzuela Attending Clinician [phone] Rickey Riana Attending Clinician [phone] IVANABAHClark_Bryant Attending Clinician Unavailable Jerome Daly MD Attending Clinician JEROME DALY Attending Clinician Unavailable Charlie Carr DO Attending Clinician Jolie Reis Attending Clinician DR MANGO DIAZ Attending Clinician Unavailable MARIANNE CORTES Attending Clinician Unavailable Doctor Unassigned, Bastian Attending Clinician Unavailable Jenna Padron MD Attending Clinician [phone] SANTOS GARCIA Attending Clinician Unavailable SANTOS GARCIA Attending Clinician Unavailable Tiffanie CRUZ, Shirley A Attending Clinician Kai Bhatt MD Attending Clinician Donavon AYALA, Danilo Attending Clinician Alber Greco DO Attending Clinician [phone] Jesusita Henderson MD Attending Clinician Derek AYALA, Annette Attending Clinician JESUSITA HENDERSON Attending Clinician Unavailable JENNA PADRON Attending Clinician Unavailable Adina Hobbs Attending Clinician Unavailable Linda CRUZ, Karin Liu Attending Clinician Kiersten Denton Attending Clinician Yessenia Siddiqi MD Attending Clinician YESSENIA SIDDIQI Attending Clinician Unavailable Kevin AYALA, Irving GarciaHSam Attending Clinician JUAN A WRIGHT Attending Clinician Unavailable RADHA MORAN Attending Clinician Unavailable Og Gonzáles RN Attending Clinician Unavailable DANILO RAPHAEL Attending Clinician Unavailable Jadiel Tinoco MD Attending Clinician MEHNAZ AUSTIN Attending Clinician Unavailable JIM GARDNER Attending Clinician Unavailable Etienne Ulrich Attending Clinician Jim Gardner MD Attending Clinician Shirley Segovia Attending Clinician Santos Garcia MD Attending Clinician Alexia Freed Attending Clinician Unavailable 1, [facility] Attending Clinician Unavailable GC_BAHC_Todd_J Admitting Clinician Unavailable GC_BAHC_Spangler_G Admitting Clinician Unavailable DR MANGO DIAZ Admitting Clinician Unavailable Annette Reed MD Admitting Clinician ANNETTE REED Admitting Clinician Unavailable Yessenia Siddiqi MD Admitting Clinician YESSENIA SIDDIQI Admitting Clinician Unavailable DANILO RAPHAEL Admitting Clinician Unavailable Danilo Raphael MD Admitting Clinician JIM GARDNER Admitting Clinician Unavailable Jj AYALA, Jim Admitting Clinician Payers Payer Name Policy Type Policy Number Effective Date Expiration Date Melissa ryan [facility] [id number] [facility] (MEDICAID CLAIMS) [facility] [id number] 2016 OF ME 00:00:00 Problems Condition Condition Condition Status Onset Resolution Last Treating Co mments Source Name Details Category Date Date Treatment Clinician Date Cough when Cough When Problem Active [facility] swallowing Swallowing 5-08 Me dical 00:00: 00 Chokes Chokes Problem Active [facility] when When 5-08 Medical swallowing Swallowing 00:00: 00 Dysphagia Dysphagia Problem Active [facility] via as a late as a Late 5-08 Medi ines effect of Effect of 00:00: cerebrovas Cerebrovas 00 cular cular accident Accident Unintentio Unintentio Problem Active [facility] nal weight nal Weight 4-03 Me dical loss Loss 00:00: 00 Recurrent Recurrent Problem Active [facility] via major Major 3-13 Medical depression Depression 00:00: 00 Hyperammon Hyperammon Problem Active [facility] emia emia 11-20 Medical 00:00: 00 Constipati Constipati Problem Active [facility] on on 11-20 Medical 00:00: 00 Vascular Vascular Problem Active [facility] a dementia Dementia 1-13 Medica l with with 00:00: behavioral Behavioral 00 disturbanc Disturbanc e e Anemia of Anemia of Problem Active 2021-10 [facility] via chronic Chronic 1-04 Medical disease Disease 00:00: 00 Lives in a Lives in a Problem Active 2021-10 [facility] nursing Nursing 0-25 Medical home Home 00:00: 00 Need for Need for Problem Active 2021-10 [facility] a personal Personal 0-25 Medica l care Care 00:00: assistance Assistance 00 Lumbar Lumbar Problem Active 2021-10 [facility] spondylosi Spondylosi 0-05 Me dical s s 00:00: 00 Hemiparesi Hemiparesi Problem Active [facility] s as late s as Late 6-16 Medi ines effect of Effect of 00:00: cerebrovas Cerebrovas 00 cular cular accident Accident Hyperlipid Hyperlipid Problem Active [facility] emia emia 6-04 Medical 00:00: 00 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[facility] angiopathy Angiopathy 6-04 Me dical due to Due to 00:00: diabetes Diabetes 00 mellitus Mellitus Chronic Chronic Problem Active [facility] kidney Kidney 6-04 Medical disease Disease 00:00: due to Due to 00 type 2 Type 2 diabetes Diabetes mellitus Mellitus Hypercoagu Hypercoagu Problem Active P [place] lability lability 4-29 Medica l state State 00:00: 00 Long-term Long-term Problem Active [facility] via current Current 4-29 Medical use of Use of 00:00: aspirin Aspirin 00 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 4-14 Medical disorder Disorder 00:00: 00 Senile Senile Problem Active [facility] purpura Purpura 4-14 Medical 00:00: 00 Dependence Dependence Problem Active [facility] on wheel on Wheel 4-14 Medica l chair Chair 00:00: 00 Long-term Long-term Problem Active [facility] via current Current 4-14 Medical use of Use of 00:00: insulin Insulin 00 Type 2 Type 2 Problem Active [facility] diabetes Diabetes 4-11 Medica l mellitus Mellitus 00:00: 00 Diabetic Diabetic Problem Active [facility] a peripheral Peripheral 4-11 Me dical neuropathy Neuropathy 00:00: 00 Hypertensi Hypertensi Problem Active [facility] ve heart ve Heart 4-11 Medica l AND renal and Renal 00:00: disease Disease 00 Late Late Problem Active [facility] effects of Effects of 4-11 Me dical cerebrovas Cerebrovas 00:00: cular cular 00 disease Disease Benign Benign Problem Active [facility] prostatic Prostatic 4-11 Medi ines hyperplasi Hyperplasi 00:00: a a 00 Fracture Fracture Disease Active Unive rs 5-06 ity of 00:00: [place] 00 [facility] Multiple Multiple Disease Active [facility] rib rib 5-04 [place] Fall Fall Disease Active Univers 3-07 ity of 00:00: [place] 00 [facility] Dyslipidem Dyslipidem Disease Active U nivers ia ia 3-07 ity of 00:00: [place] 00 [facility] Hypotensio Hypotensio Disease Active U nivers n due to n due to 3-07 ity of hypovolemi [place]ovolemi [place] [facility] [place] Abdominal Abdominal Disease Active Uni vers pain pain 2-29 ity of 00:00: [place] 00 [facility] Stenosis Stenosis Disease Active Unive rs of left of left 2-29 ity of carotid carotid 00:00: [place] artery artery 00 Medical Branch Type 2 Type 2 Disease Active Univers diabetes diabetes 2-29 ity of mellitus mellitus 00:00: [place] without without 00 Medical complicati complicati Br anch on, on, without without long-term long-term current current use of use of insulin insulin Syncope Syncope Disease Active Univers 2-28 ity of 00:00: [place] 00 Medical Branch Acute Acute Disease Active Univers renal renal 5-06 ity of failure failure 00:00: [place] superimpos superimpos 00 Me dical ed on ed on Branch chronic chronic kidney kidney disease disease Agitation Agitation Disease Active Uni vers 5-06 ity of 00:00: [place] 00 Medical Branch Urinary Urinary Disease Active Univers retention retention 5-03 ity of 00:00: [place] 00 [facility] Obesity Obesity Disease Active Univers (BMI (BMI 5-03 ity of 30-39.9) 30-39.9) 00:00: [place] 00 [facility] Weakness Weakness Disease Active Unive rs 4-30 ity of 00:00: [place] 00 [facility] Neuropathy Neuropathy Disease Active 2019 U nivers 4-30 ity of 00:00: [place] 00 Medical Branch Falls Falls Disease Active 2019 Univers frequently frequently 4-30 it y of 00:00: [place] 00 [facility] Proliferat Proliferat Disease Active U nivers lashon lashon 4-06 ity of diabetic diabetic 00:00: [place] retinopath retinopath 00 Me dical y of both y of both Bran ch eyes eyes without without macular macular edema edema associated associated with with diabetes diabetes mellitus mellitus due to due to underlying underlying condition condition Vitreous Vitreous Disease Active Unive rs hemorrhage hemorrhage 4-06 it y of of right of right 00:00: [place] eye eye 00 Medical Branch Diabetic Diabetic Disease Active Unive rs macular macular 4-06 ity of edema of edema of 00:00: [place] both eyes both eyes 00 [facility] Branch Visual Visual Disease Active Univers field field 4-06 ity of defect defect 00:00: [place] 00 Medical Branch Vitreous Vitreous Disease Active Unive rs hemorrhage hemorrhage 4-06 it y of of right of right 00:00: [place] eye eye 00 Medical Branch Combined Combined Disease Active Overview: Un darshana form of form of 3 Formattin ity o f senile senile 00:00: g of this [place] cataract cataract 00 note Medica l of left of left might be Branch eye eye different from the original. Added automatic ally from request for surgery [id number] Combined Combined Disease Active Overview: Un darshana form of form of 3 Added ity of senile senile 00:00: automatic [place] cataract cataract 00 ally from Med ical of left of left request Branch eye eye for surgery [id number] BETHANIE (acute BETHANIE (acute Disease Active U [facility] 803 ity of injury) injury) 00:00: [place] 00 Medical Branch Hyperkalem Hyperkalem Disease Active U elisabeth ia ia 8 ity of 00:00: [place] 00 Medical Branch Cerebrovas Cerebrovas Disease Active 2015-10 U elisabeth cular cular 108 ity of accident accident 00:00: [place] (CVA), (CVA), 00 Medical unspecifie unspecifie Br anch d d mechanism mechanism Senile Senile Disease Active 2015-10 Univers nuclear nuclear 08 ity of cataract, cataract, 00:00[place] left left 00 [facility] Pseudophak Pseudophak Disease Active 2015-10 U nivers ia, right ia, right 108 ity of eye eye 00:00: [place] 00 Medical Branch Proliferat Proliferat Disease Active 2015-10 U elisabeth lashon lashon 108 ity of diabetic diabetic 00:00: [place] retinopath retinopath 00 Me dical y without y without Bran ch macular macular edema edema associated associated with type with type 2 diabetes 2 diabetes mellitus mellitus Clinically Clinically Disease Active 2015-10 U nivers significan significan 08 it y of t macular t macular 00:00[place] edema edema 00 [facility] Dementia Dementia Disease Active Unive rs with with 7-23 ity of aggressive aggressive [place] behavior behavior 00 Medica l Branch Essential Essential Disease Active Uni vers hypertensi hypertensi 6-30 it y of on on 00:00: [place] [address] Medical [place] Depression Depression Disease Active U nivers 6-30 ity of 00:00: [place] [facility] Dry eyes, Dry eyes, Disease Active Uni vers bilateral bilateral 4-28 ity of 00:00: [place] [facility] Proliferat Proliferat Disease Active U nivers lashon lashon 4-28 ity of diabetic diabetic 00:00: [place] retinopath retinopath 00 Me dical y of both y of both Bran ch eyes eyes History of History of Disease Active U nivers CVA with CVA with 9-11 ity of residual residual 00:00: [place] deficit deficit Medical Branch Multiple Multiple Disease Active Unive rs lesions on lesions on 9-[address] CT of 00:00: [place] brain and brain and 00 [facility] ines spine spine Branch Cervical Cervical Disease Active Unive rs spinal spinal 9-11 ity of stenosis stenosis 00:00: [place] [facility] Branch Stroke Stroke Disease Active Univers 6-29 ity of 00:00: [place] [facility] Abnormal Abnormal Disease Active Unive rs head CT head CT 6-05 ity of 00:00: [place] [address] Medical Branch Proteinuri Proteinuri Disease Active U nivers a a 6-05 ity of 00:00: [address] Allergies, Adverse Reactions, Alerts Allergy Allergy Status Severity Reaction(s) Onset Inactive Treating Comm ents Source Name Type Date Date Clinician Unable DA Active U 2021-10 [facility] to 12-11 Assess 00:00: 00 NO KNOWN Drug Active Univers ALLERGIE Class ity of S [facility] No Known DA Active [facility] s Social History Social Habit Start Date Stop Date Quantity Comments Source Exposure to Not sure [facility] SARS-CoV-2 (event) [facility] History of tobacco Cigarette Smoker University of use [facility] Alcohol Comment he quit 3-4 Universi ty of months ago [facility] Cigarettes smoked 2021-06-03 2021-06-03 Univers ity of current (pack per 00:00:00 00:00:00 [facility] ) - Reported Branch Tobacco use and 2021-06-03 2021-06-03 Never used Universit y of exposure 00:00:00 00:00:00 [facility] Branch Cigarette 2021-06-03 2021-06-03 University of pack-years 00:00:00 00:00:00 [facility] Branch Alcohol intake 2021-06-03 2021-06-03 Current drinker Unive rsity of 00:00:00 00:00:00 of alcohol [place] [facility] (finding) Branch History SDOH 2019-12-28 2019-12-28 3 University o f Financial 00:00:00 00:00:00 [place] [facility] History [facility] Food 2019-12-28 2019-12-28 2 Univers ity of Worry 00:00:00 00:00:00 [place] [facility] History [facility] Food 2019-12-28 2019-12-28 2 Univers ity of Scarcity 00:00:00 00:00:00 [place] [facility] History [facility] 2019-12-28 2019-12-28 1 University o f Transport Med 00:00:00 00:00:00 [place] Medic al Branch History [facility] 2019-12-28 2019-12-28 1 University o f Transport Non-Med 00:00:00 00:00:00 [facility] edical Branch History [facility] 2019-12-27 2019-12-27 13 University o f Education 00:00:00 00:00:00 [facility] Sex Assigned At [birth year] Universit y of 00:00:00 00:00:00 [facility] Smoking Status Start Date Stop Date Source Former Smoker [facility] Current every day smoker 2021-06-03 00:00:00 Uni versity of [facility] Medications Ordered Filled Start Stop Current Ordering Indication Dosage Frequency Signature Comments Components Source Medication Medication Date Date Medication? Clinician (SIG) Name Name valproic valproic No 750mL BID valproic [facility] acid (as acid (as 2-21 acid (as Med ical sodium sodium 00:00: sodium salt) 250 salt) 250 00 salt) 250 mg/5 mL mg/5 mL mg/5 mL oral oral oral solution solution solution Take 750 mL Take 750 mL Take 750 twice a day twice a day mL twice a by oral by oral day by route. route. oral route. valproic valproic 0 No 750mL BID valproic [facility] acid (as acid (as 2-21 acid (as Med ical sodium sodium 00:00: sodium salt) 250 salt) 250 00 salt) 250 mg/5 mL mg/5 mL mg/5 mL oral oral oral solution solution solution Take 750 mL Take 750 mL Take 750 twice a day twice a day mL twice a by oral by oral day by route. route. oral route. valproic valproic 0 No 750mL BID valproic [facility] acid (as acid (as 2-21 acid (as Med ical sodium sodium 00:00: sodium salt) 250 salt) 250 00 salt) 250 mg/5 mL mg/5 mL mg/5 mL oral oral oral solution solution solution Take 750 mL Take 750 mL Take 750 twice a day twice a day mL twice a by oral by oral day by route. route. oral route. valproic valproic 0 No 750mL BID valproic [facility] acid (as acid (as 2-21 acid (as Med ical sodium sodium 00:00: sodium salt) 250 salt) 250 00 salt) 250 mg/5 mL mg/5 mL mg/5 mL oral oral oral solution solution solution Take 750 mL Take 750 mL Take 750 twice a day twice a day mL twice a by oral by oral day by route. route. oral route. valproic valproic 0 No 750mL BID valproic [facility] acid (as acid (as 2-21 acid (as Med ical sodium sodium 00:00: sodium salt) 250 salt) 250 00 salt) 250 mg/5 mL mg/5 mL mg/5 mL oral oral oral solution solution solution Take 750 mL Take 750 mL Take 750 twice a day twice a day mL twice a by oral by oral day by route. route. oral route. atorvastati atorvastati No 1 Q1D atorvastat [facility] n 20 mg n 20 mg 7-05 in 20 mg Medic al tablet Take tablet Take 00:00: tablet 1 tablet 1 tablet 00 Take 1 every day every day tablet by oral by oral every day route. route. by oral route. atorvastati atorvastati No 1 Q1D atorvastat [facility] n 20 mg n 20 mg 7-05 in 20 mg Medic al tablet Take tablet Take 00:00: tablet 1 tablet 1 tablet 00 Take 1 every day every day tablet by oral by oral every day route. route. by oral route. atorvastati atorvastati 2021-0 No 1 Q1D atorvastat [facility] n 20 mg n 20 mg 7-05 in 20 mg Medic al tablet Take tablet Take 00:00: tablet 1 tablet 1 tablet 00 Take 1 every day every day tablet by oral by oral every day route. route. by oral route. atorvastati atorvastati 2021-0 No 1 Q1D atorvastat [facility] n 20 mg n 20 mg 7-05 in 20 mg Medic al tablet Take tablet Take 00:00: tablet 1 tablet 1 tablet 00 Take 1 every day every day tablet by oral by oral every day route. route. by oral route. atorvastati atorvastati 2021-0 No 1 Q1D atorvastat [facility] n 20 mg n 20 mg 7-05 in 20 mg Medic al tablet Take tablet Take 00:00: tablet 1 tablet 1 tablet 00 Take 1 every day every day tablet by oral by oral every day route. route. by oral route. atorvastati atorvastati 2021-0 No 1 Q1D atorvastat [facility] n 20 mg n 20 mg 7-05 in 20 mg Medic al tablet Take tablet Take 00:00: tablet 1 tablet 1 tablet 00 Take 1 every day every day tablet by oral by oral every day route. route. by oral route. atorvastati atorvastati 2021-0 No 1 Q1D atorvastat [facility] n 20 mg n 20 mg 7-05 in 20 mg Medic al tablet Take tablet Take 00:00: tablet 1 tablet 1 tablet 00 Take 1 every day every day tablet by oral by oral every day route. route. by oral route. atorvastati atorvastati 2021-0 No 1 Q1D atorvastat [facility] n 20 mg n 20 mg 7-05 in 20 mg Medic al tablet Take tablet Take 00:00: tablet 1 tablet 1 tablet 00 Take 1 every day every day tablet by oral by oral every day route. route. by oral route. atorvastati atorvastati 2021-0 No 1 Q1D atorvastat [facility] n 20 mg n 20 mg 7-05 in 20 mg Medic al tablet Take tablet Take 00:00: tablet 1 tablet 1 tablet 00 Take 1 every day every day tablet by oral by oral every day route. route. by oral route. atorvastati atorvastati 2021-0 No 1 Q1D atorvastat [facility] n 20 mg n 20 mg 7-05 in 20 mg Medic al tablet Take tablet Take 00:00: tablet 1 tablet 1 tablet 00 Take 1 every day every day tablet by oral by oral every day route. route. by oral route. atorvastati atorvastati 2021-0 No 1 Q1D atorvastat [facility] n 20 mg n 20 mg 7-05 in 20 mg Medic al tablet Take tablet Take 00:00: tablet 1 tablet 1 tablet 00 Take 1 every day every day tablet by oral by oral every day route. route. by oral route. atorvastati atorvastati 2021-0 No 1 Q1D atorvastat [facility] n 20 mg n 20 mg 7-05 in 20 mg Medic al tablet Take tablet Take 00:00: tablet 1 tablet 1 tablet 00 Take 1 every day every day tablet by oral by oral every day route. route. by oral route. atorvastati atorvastati 2021-0 No 1 Q1D atorvastat [facility] n 20 mg n 20 mg 7-05 in 20 mg Medic al tablet Take tablet Take 00:00: tablet 1 tablet 1 tablet 00 Take 1 every day every day tablet by oral by oral every day route. route. by oral route. atorvastati atorvastati 2021-0 No 1 Q1D atorvastat [facility] n 20 mg n 20 mg 7-05 in 20 mg Medic al tablet Take tablet Take 00:00: tablet 1 tablet 1 tablet 00 Take 1 every day every day tablet by oral by oral every day route. route. by oral route. atorvastati atorvastati 2021-0 No 1 Q1D atorvastat [facility] n 20 mg n 20 mg 7-05 in 20 mg Medic al tablet Take tablet Take 00:00: tablet 1 tablet 1 tablet 00 Take 1 every day every day tablet by oral by oral every day route. route. by oral route. atorvastati atorvastati 2021-0 No 1 Q1D atorvastat [facility] n 20 mg n 20 mg 7-05 in 20 mg Medic al tablet Take tablet Take 00:00: tablet 1 tablet 1 tablet 00 Take 1 every day every day tablet by oral by oral every day route. route. by oral route. atorvastati atorvastati 2021-0 No 1 Q1D atorvastat [facility] n 20 mg n 20 mg 7-05 in 20 mg Medic al tablet Take tablet Take 00:00: tablet 1 tablet 1 tablet 00 Take 1 every day every day tablet by oral by oral every day route. route. by oral route. atorvastati atorvastati 2021-0 No 1 Q1D atorvastat [facility] n 20 mg n 20 mg 7-05 in 20 mg Medic al tablet Take tablet Take 00:00: tablet 1 tablet 1 tablet 00 Take 1 every day every day tablet by oral by oral every day route. route. by oral route. atorvastati atorvastati 2021- No 1 Q1D atorvastat [facility] n 20 mg n 20 mg 7-05 in 20 mg Medic al tablet Take tablet Take 00:00: tablet 1 tablet 1 tablet 00 Take 1 every day every day tablet by oral by oral every day route. route. by oral route. atorvastati atorvastati 2021-0 No 1 Q1D atorvastat [facility] n 20 mg n 20 mg 7-05 in 20 mg Medic al tablet Take tablet Take 00:00: tablet 1 tablet 1 tablet 00 Take 1 every day every day tablet by oral by oral every day route. route. by oral route. atorvastati atorvastati 2021-0 No 1 Q1D atorvastat [facility] n 20 mg n 20 mg 7-05 in 20 mg Medic al tablet Take tablet Take 00:00: tablet 1 tablet 1 tablet 00 Take 1 every day every day tablet by oral by oral every day route. route. by oral route. atorvastati atorvastati 2021-0 No 1 Q1D atorvastat [facility] n 20 mg n 20 mg 7-05 in 20 mg Medic al tablet Take tablet Take 00:00: tablet 1 tablet 1 tablet 00 Take 1 every day every day tablet by oral by oral every day route. route. by oral route. SIMVASTATIN 2020-0 Yes [id number] TAKE 1 Univers 20 mg 5-22 TABLET BY ity of tablet 00:00: MOUTH AT [address] SIMVASTATIN 2020-0 Yes [id number] TAKE 1 Univers 20 mg 5-22 TABLET BY ity of tablet 00:00: MOUTH AT [address] SIMVASTATIN 2020-0 Yes [id number] TAKE 1 Univers 20 mg 5-22 TABLET BY ity of tablet 00:00: MOUTH AT [address] SIMVASTATIN 2020-0 Yes [id number] TAKE 1 Univers 20 mg 5-22 TABLET BY ity of tablet 00:00: MOUTH AT [address] SIMVASTATIN 2020-0 Yes [id number] TAKE 1 Univers 20 mg 5-22 TABLET BY ity of tablet 00:00: MOUTH AT [address] SIMVASTATIN 2020-0 Yes [id number] TAKE 1 Univers 20 mg 5-22 TABLET BY ity of tablet 00:00: MOUTH AT [address] SIMVASTATIN 2020-0 Yes [id number] TAKE 1 Univers 20 mg 5-22 TABLET BY ity of tablet 00:00: MOUTH AT [address] SIMVASTATIN 2020-0 Yes [id number] TAKE 1 Univers 20 mg 5-22 TABLET BY ity of tablet 00:00: MOUTH AT [address] DULoxetine 2020-0 Yes [id number] 40mg Take 40 mg Univers 40 mg CpDR 5-09 by mouth ity o f 00:00: daily. [address] DULoxetine 2020-0 Yes [id number] 40mg Take 40 mg Univers 40 mg CpDR 5-09 by mouth ity o f 00:00: daily. [address] DULoxetine 2020-0 Yes [id number] 40mg Take 40 mg Univers 40 mg CpDR 5-09 by mouth ity o f 00:00: daily. [address] DULoxetine 2020-0 Yes [id number] 40mg Take 40 mg Univers 40 mg CpDR 5-09 by mouth ity o f 00:00: daily. [address] DULoxetine 2020-0 Yes [id number] 40mg Take 40 mg Univers 40 mg CpDR 5-09 by mouth ity o f 00:00: daily. [address] DULoxetine 2020-0 Yes [id number] 40mg Take 40 mg Univers 40 mg CpDR 5-09 by mouth ity o f 00:00: daily. [address] DULoxetine 2020-0 Yes [id number] 40mg Take 40 mg Univers 40 mg CpDR 5-09 by mouth ity o f 00:00: daily. Medical Branch DULoxetine 2020-0 Yes 40mg Take 40 mg Univers 40 mg CpDR 5-09 by mouth ity o f 00:00: daily. Medical Branch DULoxetine 2020-0 Yes 40mg Take 40 mg Univers 40 mg CpDR 5-09 by mouth ity o f 00:00: daily. Medical Branch DULoxetine 2020-0 Yes 40mg Take 40 mg Univers 40 mg CpDR -09 by mouth ity o f 00:00: daily. Medical Branch DULoxetine 2019-0 2020- No [id number] 40mg Take 40 mg Univers 40 mg CpDR 02-28-08 by mouth ity of 00:00: 00:00 daily. [place] 00 :00 Medical Branch Polyethylen 2019-0 2020- No 17g 17 g, Univ ers e Glycol - 05-08 Oral, ity of 3350 16:33: 19:07 ONCE, 1 [place] (MIRALAX) 00 :00 dose, Fri Medic al powder 17 g 02/28/20 at [facility] 1145, Routine hydrALAZINE 2019-0 Yes [id number] 10mg Take 1 Univers 10 mg 5-08 tablet by ity of tablet 00:00: mouth 2 00 (two) Medical times Branch daily. amLODIPine 2020-0 Yes [id number] 5mg Take 1 U nivers 5 mg tablet 5-08 tablet by ity of 00:00: mouth 00 daily. Medical Branch aspirin 81 2020-0 Yes [id number] 81mg Take 1 [facility] [place] mg EC 5-08 tablet by ity of tablet 00:00: mouth daily. Medical Branch donepezil 5 2020-0 Yes [id number] 5mg Take 1 [facility] mg tablet 5-08 tablet by ity o f 00:00: mouth [place] 00 daily. Medical Branch pyridoxine, 2020-0 Yes [id number] 50mg Take 1 [facility] vitamin B6, 5-08 tablet by ity of 50 mg 00:00: mouth [place] tablet 00 every Medical Monday, Branch Monday and Monday. Needs the active form, pyridoxal- 5-phosphat e, if possible. QUEtiapine 2020-0 Yes [id number] 25mg Take 1 [facility] 25 mg 5-08 tablet by ity of tablet 00:00: mouth at [place] 00 bedtime. Medical Branch nicotine 14 2020-0 Yes 1{patch Apply 1 [facility] mg/24 hr 5-08 } Patch to ity of patch 00:00: area(s) [place] 00 every 24 Medical (twenty-fo Branch ur) hours. tamsulosin 2020-0 Yes .4mg Take 1 [facility] [place] 0.4 mg 24 5-08 capsule by it[facility] of hr capsule 00:00: mouth 2 [place] 00 (two) Medical times Branch daily. traZODone 2020-0 Yes 100mg Take 1 [facility] [place] 100 mg 5-08 tablet by ity of tablet 00:00: mouth at [place] 00 bedtime. Medical Branch hydrALAZINE 2020-0 Yes [id number] 10mg Take 1 [facility] 10 mg 5-08 tablet by ity of tablet 00:00: mouth 2 [place] 00 (two) Medical times Branch daily. amLODIPine 2020-0 Yes [id number] 5mg Take 1 [facility] nivers 5 mg tablet 5-08 tablet by ity of 00:00: mouth [place] 00 daily. Medical Branch aspirin 81 2020-0 Yes 81mg Take 1 [facility] [place] mg EC 5-08 tablet by ity of tablet 00:00: mouth [place] 00 daily. Medical Branch donepezil 5 2020-0 Yes [id number] 5mg Take 1 [facility] mg tablet 5-08 tablet by ity o f 00:00: mouth [place] 00 daily. Medical Branch pyridoxine, 2020-0 Yes [id number] 50mg Take 1 [facility] vitamin B6, 5-08 tablet by ity of 50 mg 00:00: mouth [place] tablet 00 every Medical Monday, Branch Monday and Monday. Needs the active form, pyridoxal- 5-phosphat e, if possible. QUEtiapine 2020-0 Yes [id number] 25mg Take 1 [facility] 25 mg 5-08 tablet by ity of tablet 00:00: mouth at [place] 00 bedtime. Medical Branch nicotine 14 2020-0 Yes 1{patch Apply 1 [facility] mg/24 hr 5-08 } Patch to ity of patch 00:00: area(s) [place] 00 every 24 Medical (twenty-fo Branch ur) hours. tamsulosin 2020-0 Yes .4mg Take 1 [facility] [place] 0.4 mg 24 5-08 capsule by [facility] of hr capsule 00:00: mouth 2 [place] 00 (two) Medical times Branch daily. traZODone 2020-0 Yes 100mg Take 1 [facility] [place] 100 mg 5-08 tablet by ity of tablet 00:00: mouth at [place] 00 bedtime. Medical Branch pregabalin 2020-0 Yes [id number] 150mg Take 1 [facility] (LYRICA) 5-08 capsule by ity o f 150 mg 00:00: mouth 2 [place] capsule 00 (two) Medical times Branch daily. hydrALAZINE 2020-0 Yes [id number] 10mg Take 1 [facility] 10 mg 5-08 tablet by ity of tablet 00:00: mouth 2 [place] 00 (two) Medical times Branch daily. amLODIPine 2020-0 Yes [id number] 5mg Take 1 [facility] 5 mg tablet 5-08 tablet by ity of 00:00: mouth [place] 00 daily. Medical Branch aspirin 81 2020-0 Yes [id number] 81mg Take 1 [facility] [place] mg EC 5-08 tablet by ity of tablet 00:00: mouth [place] 00 daily. Medical Branch donepezil 5 2020-0 Yes [id number] 5mg Take 1 [facility] mg tablet 5-08 tablet by ity o f 00:00: mouth [place] 00 daily. Medical Branch pyridoxine, 2020-0 Yes [id number] 50mg Take 1 [facility] vitamin B6, 5-08 tablet by ity of 50 mg 00:00: mouth [place] tablet 00 every Medical Monday, Branch Monday and Monday. Needs the active form, pyridoxal- 5-phosphat e, if possible. QUEtiapine 2020-0 Yes [id number] 25mg Take 1 [facility] 25 mg 5-08 tablet by ity of tablet 00:00: mouth at [place] 00 bedtime. Medical Branch nicotine 14 2020-0 Yes 1{patch Apply 1 [facility] mg/24 hr 5-08 } Patch to ity of patch 00:00: area(s) [place] 00 every 24 Medical (- Branch ur) hours. tamsulosin 2020-0 Yes .4mg Take 1 [facility] [place] 0.4 mg 24 5-08 capsule by [facility] of hr capsule 00:00: mouth 2 [place] 00 (two) Medical times Branch daily. traZODone 2020-0 Yes 100mg Take 1 [facility] [place] 100 mg 5-08 tablet by ity of tablet 00:00: mouth at [place] 00 bedtime. Medical Branch pregabalin 2020-0 Yes [id number] 150mg Take 1 [facility] (LYRICA) 5-08 capsule by ity o f 150 mg 00:00: mouth 2 [place] capsule 00 (two) Medical times Branch daily. hydrALAZINE 2020-0 Yes [id number] 10mg Take 1 [facility] 10 mg 5-08 tablet by ity of tablet 00:00: mouth 2 [place] 00 (two) Medical times Branch daily. amLODIPine 2020-0 Yes [id number] 5mg Take 1 [facility] n[facility] 5 mg tablet 5-08 tablet by ity of 00:00: mouth [place] 00 daily. Medical Branch aspirin 81 2020-0 Yes [id number] 81mg Take 1 [facility] [place] mg EC 5-08 tablet by ity of tablet 00:00: mouth [place] 00 daily. Medical Branch donepezil 5 2020-0 Yes [id number] 5mg Take 1 [facility] mg tablet 5-08 tablet by ity o f 00:00: mouth [place] 00 daily. Medical Branch pyridoxine, 2020-0 Yes [id number] 50mg Take 1 [facility] vitamin B6, 5-08 tablet by ity of 50 mg 00:00: mouth [place] tablet 00 every Medical Monday, Branch Monday and Monday. Needs the active form, pyridoxal- 5-phosphat e, if possible. QUEtiapine 2020-0 Yes [id number] 25mg Take 1 [facility] 25 mg 5-08 tablet by ity of tablet 00:00: mouth at [place] 00 bedtime. Medical Branch nicotine 14 2020-0 Yes 1{patch Apply 1 [facility] mg/24 hr 5-08 } Patch to ity of patch 00:00: area(s) [place] 00 every 24 Medical (twenty-fo Branch ur) hours. tamsulosin 2020-0 Yes .4mg Take 1 [facility] [place] 0.4 mg 24 5-08 capsule by [facility] of hr capsule 00:00: mouth 2 [place] 00 (two) Medical times Branch daily. traZODone 2020-0 Yes [id number] 100mg Take 1 [facility] [place] 100 mg 5-08 tablet by ity of tablet 00:00: mouth at [place] 00 bedtime. Medical Branch pregabalin 2020-0 Yes [id number] 150mg Take 1 [facility] (LYRICA) 5-08 capsule by ity o f 150 mg 00:00: mouth 2 [place] capsule 00 (two) Medical times Branch daily. hydrALAZINE 2020-0 Yes [id number] 10mg Take 1 [facility] 10 mg 5-08 tablet by ity of tablet 00:00: mouth 2 [place] 00 (two) Medical times Branch daily. amLODIPine 2020-0 Yes [id number] 5mg Take 1 [facility] n[facility] 5 mg tablet 5-08 tablet by ity of 00:00: mouth [place] 00 daily. Medical Branch aspirin 81 2020-0 Yes [id number] 81mg Take 1 [facility] [place] mg EC 5-08 tablet by ity of tablet 00:00: mouth [place] 00 daily. Medical Branch donepezil 5 2020-0 Yes [id number] 5mg Take 1 [facility] mg tablet 5-08 tablet by ity o f 00:00: mouth [place] 00 daily. Medical Branch pyridoxine, 2020-0 Yes [id number] 50mg Take 1 [facility] vitamin B6, 5-08 tablet by ity of 50 mg 00:00: mouth [place] tablet 00 every Medical Monday, Branch Monday and Monday. Needs the active form, pyridoxal- 5-phosphat e, if possible. QUEtiapine 2020-0 Yes [id number] 25mg Take 1 [facility] 25 mg 5-08 tablet by ity of tablet 00:00: mouth at [place] 00 bedtime. Medical Branch nicotine 14 2020-0 Yes 1{patch Apply 1 [facility] mg/24 hr 5-08 } Patch to ity of patch 00:00: area(s) 00 every 24 Medical (twenty- Branch ur) hours. tamsulosin 2020-0 Yes .4mg Take 1 [facility] [place] 0.4 mg 24 5-08 capsule by [facility] of hr capsule 00:00: mouth 2 [place] 00 (two) Medical times Branch daily. traZODone 2020-0 Yes 100mg Take 1 [facility] [place] 100 mg 5-08 tablet by ity of tablet 00:00: mouth at [place] 00 bedtime. Medical Branch pregabalin 2020-0 Yes [id number] 150mg Take 1 [facility] (LYRICA) 5-08 capsule by ity o f 150 mg 00:00: mouth 2 [place] capsule 00 (two) Medical times Branch daily. hydrALAZINE 2020-0 Yes [id number] 10mg Take 1 [facility] 10 mg 5-08 tablet by ity of tablet 00:00: mouth 2 [place] 00 (two) Medical times Branch daily. amLODIPine 2020-0 Yes [id number] 5mg Take 1 [facility] nivers 5 mg tablet 5-08 tablet by ity of 00:00: mouth [place] 00 daily. Medical Branch aspirin 81 2020-0 Yes [id number] 81mg Take 1 [facility] mg EC 5-08 tablet by ity of tablet 00:00: mouth [place] 00 daily. Medical Branch donepezil 5 2020-0 Yes [id number] 5mg Take 1 [facility] mg tablet 5-08 tablet by ity o f 00:00: mouth [place] 00 daily. Medical Branch pyridoxine, 2020-0 Yes [id number] 50mg Take 1 [facility] vitamin B6, 5-08 tablet by ity of 50 mg 00:00: mouth [place] tablet 00 every Medical Monday, Branch Monday and Monday. Needs the active form, pyridoxal- 5-phosphat e, if possible. QUEtiapine 2020-0 Yes [id number] 25mg Take 1 [facility] 25 mg 5-08 tablet by ity of tablet 00:00: mouth at [place] 00 bedtime. Medical Branch nicotine 14 2020-0 Yes [id number] 1{patch Apply 1 [facility] mg/24 hr 5-08 } Patch to ity of patch 00:00: area(s) 00 every 24 Medical (- Branch ur) hours. tamsulosin 2020-0 Yes [id number] .4mg Take 1 [facility] 0.4 mg 24 5-08 capsule by [facility] of hr capsule 00:00: mouth 2 [place] 00 (two) Medical times Branch daily. traZODone 2020-0 Yes [id number] 100mg Take 1 [facility] 100 mg 5-08 tablet by ity of tablet 00:00: mouth at [place] 00 bedtime. Medical Branch pregabalin 2020-0 Yes [id number] 150mg Take 1 [facility] (LYRICA) 5-08 capsule by ity o f 150 mg 00:00: mouth 2 [place] capsule 00 (two) Medical times Branch daily. hydrALAZINE 2020-0 Yes [id number] 10mg Take 1 [facility] 10 mg 5-08 tablet by ity of tablet 00:00: mouth 2 [place] 00 (two) Medical times Branch daily. amLODIPine 2020-0 Yes [id number] 5mg Take 1 [facility] n[facility] 5 mg tablet 5-08 tablet by ity of 00:00: mouth [place] 00 daily. Medical Branch aspirin 81 2020-0 Yes [id number] 81mg Take 1 [facility] mg EC 5-08 tablet by ity of tablet 00:00: mouth [place] 00 daily. Medical Branch donepezil 5 2020-0 Yes [id number] 5mg Take 1 [facility] mg tablet 5-08 tablet by ity o f 00:00: mouth [place] 00 daily. Medical Branch pyridoxine, 2020-0 Yes [id number] 50mg Take 1 [facility] vitamin B6, 5-08 tablet by ity of 50 mg 00:00: mouth [place] tablet 00 every Medical Monday, Branch Monday and Monday. Needs the active form, pyridoxal- 5-phosphat e, if possible. QUEtiapine 2020-0 Yes [id number] 25mg Take 1 [facility] 25 mg 5-08 tablet by ity of tablet 00:00: mouth at [place] 00 bedtime. Medical Branch nicotine 14 2020-0 Yes 1{patch Apply 1 [facility] mg/24 hr 5-08 } Patch to ity of patch 00:00: area(s) [place] 00 every 24 Medical (twenty-fo Branch ur) hours. tamsulosin 2020-0 Yes .4mg Take 1 [facility] 0.4 mg 24 5-08 capsule by it[facility] of hr capsule 00:00: mouth 2 [place] 00 (two) Medical times Branch daily. traZODone 2020-0 Yes 100mg Take 1 [facility] 100 mg 5-08 tablet by ity of tablet 00:00: mouth at [place] 00 bedtime. Medical Branch pregabalin 2020-0 Yes [id number] 150mg Take 1 [facility] (LYRICA) 5-08 capsule by ity o f 150 mg 00:00: mouth 2 [place] capsule 00 (two) Medical times Branch daily. hydrALAZINE 2020-0 Yes [id number] 10mg Take 1 [facility] 10 mg 5-08 tablet by ity of tablet 00:00: mouth 2 [place] 00 (two) Medical times Branch daily. amLODIPine 2020-0 Yes [id number] 5mg Take 1 [facility] nivers 5 mg tablet 5-08 tablet by ity of 00:00: mouth [place] 00 daily. Medical Branch aspirin 81 2020-0 Yes [id number] 81mg Take 1 [facility] mg EC 5-08 tablet by ity of tablet 00:00: mouth [place] 00 daily. Medical Branch donepezil 5 2020-0 Yes [id number] 5mg Take 1 [facility] mg tablet 5-08 tablet by ity o f 00:00: mouth [place] 00 daily. Medical Branch pyridoxine, 2020-0 Yes [id number] 50mg Take 1 [facility] vitamin B6, 5-08 tablet by ity of 50 mg 00:00: mouth [place] tablet 00 every Medical Monday, Branch Monday and Monday. Needs the active form, pyridoxal- 5-phosphat e, if possible. QUEtiapine 2020-0 Yes [id number] 25mg Take 1 [facility] 25 mg 5-08 tablet by ity of tablet 00:00: mouth at [place] 00 bedtime. Medical Branch nicotine 14 2020-0 Yes 1{patch Apply 1 [facility] mg/24 hr 5-08 } Patch to ity of patch 00:00: area(s) [place] 00 every 24 Medical (twenty- Branch ur) hours. tamsulosin 2020-0 Yes .4mg Take 1 [facility] [place] 0.4 mg 24 5-08 capsule by ity of hr capsule 00:00: mouth 2 [place] 00 (two) Medical times Branch daily. traZODone 2020-0 Yes 100mg Take 1 [facility] 100 mg 5-08 tablet by ity of tablet 00:00: mouth at [place] 00 bedtime. Medical Branch pregabalin 2020-0 Yes [id number] 150mg Take 1 [facility] (LYRICA) 5-08 capsule by ity o f 150 mg 00:00: mouth 2 [place] capsule 00 (two) Medical times Branch daily. hydrALAZINE 2020-0 Yes [id number] 10mg Take 1 [facility] 10 mg 5-08 tablet by ity of tablet 00:00: mouth 2 [place] 00 (two) Medical times Branch daily. amLODIPine 2020-0 Yes [id number] 5mg Take 1 [facility] nivers 5 mg tablet 5-08 tablet by ity of 00:00: mouth [place] 00 daily. Medical Branch aspirin 81 2020-0 Yes [id number] 81mg Take 1 [facility] mg EC 5-08 tablet by ity of tablet 00:00: mouth [place] 00 daily. Medical Branch donepezil 5 2019-0 Yes [id number] 5mg Take 1 [facility] mg tablet 5-08 tablet by ity o f 00:00: mouth [place] 00 daily. Medical Branch pyridoxine, 2020-0 Yes [id number] 50mg Take 1 [facility] vitamin B6, 5-08 tablet by ity of 50 mg 00:00: mouth [place] tablet 00 every Medical Monday, Branch Monday and Monday. Needs the active form, pyridoxal- 5-phosphat e, if possible. QUEtiapine 2020-0 Yes [id number] 25mg Take 1 [facility] 25 mg 5-08 tablet by ity of tablet 00:00: mouth at [place] 00 bedtime. Medical Branch nicotine 14 2020-0 Yes [id number] 1{patch Apply 1 [facility] mg/24 hr 5-08 } Patch to ity of patch 00:00: area(s) [place] 00 every 24 Medical (twenty-fo Branch ur) hours. tamsulosin 2020-0 Yes [id number] .4mg Take 1 [facility] [place] 0.4 mg 24 5-08 capsule by it[facility] of hr capsule 00:00: mouth 2 [place] 00 (two) Medical times Branch daily. traZODone 2020-0 Yes [id number] 100mg Take 1 [facility] 100 mg 5-08 tablet by ity of tablet 00:00: mouth at [place] 00 bedtime. Medical Branch pregabalin 2020-0 Yes [id number] 150mg Take 1 [facility] (LYRICA) 5-08 capsule by ity o f 150 mg 00:00: mouth 2 [place] capsule 00 (two) Medical times Branch daily. hydrALAZINE 2020-0 Yes [id number] 10mg Take 1 [facility] 10 mg 5-08 tablet by ity of tablet 00:00: mouth 2 [place] 00 (two) Medical times Branch daily. amLODIPine 2020-0 Yes [id number] 5mg Take 1 U nivers 5 mg tablet 5-08 tablet by ity of 00:00: mouth [place] 00 daily. Medical Branch aspirin 81 2020-0 Yes [id number] 81mg Take 1 [facility] mg EC 5-08 tablet by ity of tablet 00:00: mouth [place] 00 daily. Medical Branch donepezil 5 2020-0 Yes [id number] 5mg Take 1 [facility] mg tablet 5-08 tablet by ity o f 00:00: mouth [place] 00 daily. Medical Branch pyridoxine, 2020-0 Yes [id number] 50mg Take 1 [facility] vitamin B6, 5-08 tablet by ity of 50 mg 00:00: mouth [place] tablet 00 every Medical Monday, Branch Monday and Monday. Needs the active form, pyridoxal- 5-phosphat e, if possible. QUEtiapine 2020-0 Yes [id number] 25mg Take 1 [facility] 25 mg 5-08 tablet by ity of tablet 00:00: mouth at [place] 00 bedtime. Medical Branch nicotine 14 2020-0 Yes 1{patch Apply 1 [facility] mg/24 hr 5-08 } Patch to ity of patch 00:00: area(s) [place] 00 every 24 Medical (twenty-fo Branch ur) hours. tamsulosin 2020-0 Yes .4mg Take 1 [facility] [place] 0.4 mg 24 5-08 capsule by ity of hr capsule 00:00: mouth 2 [place] 00 (two) Medical times Branch daily. traZODone 2020-0 Yes [id number] 100mg Take 1 [facility] 100 mg 5-08 tablet by ity of tablet 00:00: mouth at [place] 00 bedtime. Medical Branch pregabalin 2020-0 Yes [id number] 150mg Take 1 [facility] (LYRICA) 5-08 capsule by ity o f 150 mg 00:00: mouth 2 [place] capsule 00 (two) Medical times Branch daily. amLODIPine 2019-0 2020- No [id number] 5mg Take 1 [facility] 5 mg tablet 5-08 05-08 tablet by it y of 00:00: 00:00 mouth [place] 00 :00 daily. Medical Branch aspirin 81 2019-0 2020- No [id number] 81mg Take 1 U nivers mg EC 5-08 05-08 tablet by ity of tablet 00:00: 00:00 mouth [place] 00 :00 daily. Medical Branch donepezil 5 2019-0 2020- No [id number] 5mg Take 1 [facility] mg tablet 5-08 05-08 tablet by ity of 00:00: 00:00 mouth [place] 00 :00 daily. Medical Branch nicotine 14 2019-0 2020- No [id number] 1{patch Apply 1 [facility] mg/24 hr 5-08 05-08 } Patch to ity of patch 00:00: 00:00 area(s) [place] 00 :00 every 24 Medical (twenty-fo Branch ur) hours. pyridoxine, 2020-0 2020- No [id number] 50mg Take 1 [facility] vitamin B6, 02-27- tablet by it y of 50 mg 00:00: 00:00 mouth [place] tablet 00 :00 every Medical Monday, Branch Monday and Monday. Needs the active form, pyridoxal- 5-phosphat e, if possible. QUEtiapine 2020- No [id number] 25mg Take 1 [facility] 25 mg 02-27 tablet by ity of tablet 00:00: 00:00 mouth at [place] 00 :00 bedtime. Medical Branch tamsulosin 2019- No [id number] .4mg Take 1 U nivers 0.4 mg 24 02-27- capsule by ity of hr capsule 00:00: 00:00 mouth 2 [place] 00 :00 (two) Medical times [place] daily. traZODone 2019- No [id number] 100mg Take 1 U nivers 100 mg 02-27- tablet by ity of tablet 00:00: 00:00 mouth at [place] 00 :00 bedtime. Medical Branch traZODone 0 Yes 100mg 100 mg, Univ ers (DESYREL) 5-07 Oral, QHS, ity of tablet 100 02:00: First dose [place] mg 00 on Mon02/26/20 at Branch 2100, Until Discontinu ed, Routine amLODIPine Yes 10mg 10 mg, Unive rs (NORVASC) 5-06 Oral, ity of tablet 10 14:00: DAILY, [place] mg 00 First dose Medical on Mon [place] 02/26/20 at 0900, Until Discontinu ed, Routine heparin Yes 5000U 5,000 [facility] (porcine) 5-06 Units, ity of injection 13:00: Subcutaneo [place] 5,000 Units 00 us, Q12H, Med ical First dose Branch on Mon02/26/20 at 0800, Until Discontinu ed, Routine cyanocobala 2019- No 1000ug 1,000 mcg, [facility] min 02-25 05-06 Intramuscu ity of (VITAMIN 09:15: 10:23 [place], ONCE, [place] B12) 00 :00 1 dose, Medical injection Mon02/26/20 Bran ch 1,000 mcg at 0415, Routine morpHINE 2019- No 2mg 2 mg, Slow Un [facility] injection 2 02-25 05-06 IV Push, ity of mg 07:38: 07:56 ONCE, 1 [place] 00 :00 dose, [facility] 02/26/20 at Branch 0245, Routine hydrALAZINE 2020-0 Yes 50mg 50 mg, Univ ers (APRESOLINE 5-06 Oral, Q8H, it y of ) tablet 50 03:00: First dose [place] mg 00 on [facility] 02/25/20 at Branch 2200, Until Discontinu ed, Routine QUEtiapine 2020-0 Yes 25mg 25 mg, Unive rs (SEROQUEL) 5-06 Oral, QHS, ity of tablet 25 02:00: First dose [place] mg 00 on [facility] 02/25/20 at Branch 2100, Until Discontinu ed, Routine pregabalin 2020-0 Yes 50mg 50 mg, Unive rs (LYRICA) 5-06 Oral, BID, ity o f capsule 50 01:00: First dose [place] mg 00 on [facility] 02/25/20 at Branch 2000, Until Discontinu ed, Routine
ensemble member approving Restricted medication : [facility] lidocaine 2020-0 Yes 1{patch 1 Patch, U nivers (LIDODERM) 02-24 } Topical, ity o f 5 % (700 23:30: Administer [place] mg/patch) 00 over 12 Medical patch 1 Hours, [place] Patch DAILY, First dose on Mon02/25/20 at 1830, Until Discontinu ed, Routine NaCl 0.9% 2019-0 2020- No 1000mL at 999 Uni vers (NS) bolus 5-05 05-05 mL/hr, ity of infusion 19:30: 20:12 1,000 mL, [place] 1,000 mL 00 :[facility], [facility] 02/25/20 at 1430, STAT hydrALAZINE 2020-0 2020- No 25mg 25 mg, Uni vers (APRESOLINE 5-05 05-05 Oral, Q8H, i ty of ) tablet 25 19:00: 23:26 First dose [place] mg 00 :03 on [facility] 02/25/20 at Branch 1400, Until Discontinu ed, Routine docusate 2020-0 Yes 100mg 100 mg, Unive rs (COLACE) 5-05 Oral, ity of capsule 100 14:00: DAILY, [place] mg 00 First dose Medical on [facility] 02/25/20 at 0900, Until Discontinu ed, Routine DULoxetine 2020-0 Yes 40mg 40 mg, Unive rs (CYMBALTA) 5-05 Oral, ity of capsule 40 14:00: DAILY, [place] mg 00 First dose Medical on [facility] 02/25/20 at 0900, Until Discontinu ed donepezil 2020-0 Yes 5mg 5 mg, Univers (ARICEPT) 5-05 Oral, ity of tablet 5 mg 14:00: DAILY, [place] 00 First dose Medical on [facility] 02/25/20 at 0900, Until Discontinu ed, Routine aspirin 2020-0 Yes 81mg 81 mg, [facility] chewable 5-05 Oral, ity of tablet 81 14:00: DAILY, [place] mg 00 First dose Medical on [facility] 02/25/20 at 0900, Until Discontinu ed, Routine amLODIPine 2020-0 2020- No 5mg 5 mg, Unive rs (NORVASC) - 05-05 Oral, ity of tablet 5 mg 14:00: 18:27 DAILY, [place] 00 :33 First dose Medical on [facility] 02/25/20 at 0900, Until Discontinu ed, Routine ondansetron 2020-0 Yes 4mg 4 mg, Slow Univers (ZOFRAN 5-05 IV Push, ity of (PF)) 04:37: Q6HPRN, [place] injection 4 02 Starting Medi ines mg Mon02/24/20 Branch at 2337, Until Discontinu ed, Routine, Nausea and Vomiting (N/V) temazepam 2020-0 2020- No 15mg 15 mg, Unive rs (RESTORIL) - 05-06 Oral, ity of capsule 15 02:55: 04:52 QHSPRN, [place] mg 09 :51 Starting Medical Mon02/24/20 Branch at 2155, Until Mon02/25/20 at 2352, Routine, Insomnia morpHINE 2020-0 Yes 2mg 2 mg, Slow Uni vers injection 2 5-05 IV Push, ity of mg 02:54: Q6HPRN, [place] 57 Starting Medical Mon02/24/20 Branch at 2154, Until Discontinu ed, Routine, Pain (scale 7-10) Sliding 2020-0 Yes Subcutaneo Univ ers Scale 5-05 us, TID ity of Insulin - 02:00: MEALS+HS, [place] 00 First dose Medical (NOVOLOG) + on Mon [place] [facility] 02/24/20 at Testing 2100, Until Discontinu ed, Routine NaCl 0.9% 2020-0 2020- No 1000mL at 100 Uni vers (NS) IV 5-05 05-08 mL/hr, IV ity of infusion 02:00: 11:18 Infusion, [place] 1,000 mL 00 :43 CONTINUOUS Medic al , Starting Branch Mon02/24/20 at 2100, Until Mon02/28/20 at 0618, Routine tamsulosin 2020-0 Yes .4mg 0.4 mg, Univ ers (FLOMAX) 5-05 Oral, BID, ity o f capsule 0.4 01:00: First dose [place] mg 00 on [facility] 02/24/20 at Branch 2000, Until Discontinu ed, Routine hydrALAZINE 2019-0 2020- No 10mg 10 mg, Uni vers (APRESOLINE -05 05-05 Oral, BID, i ty of ) tablet 10 01:00: 18:27 First dose [place] mg 00 :33 on [facility] 02/24/20 at Branch 2000, Until Discontinu ed, Routine nicotine 2019-0 Yes 1{patch 1 Patch, Un [facility]arshana (NICODERM) 5-05 } Topical, ity o f 14 mg/24 hr 00:00: Administer [place] patch 1 00 over 24 Medical Patch Hours, Branch Q24H, First dose on Mon02/24/20 at 1900, Until Discontinu ed, Routine traMADol 2019-0 2020- No 50mg 50 mg, Univer s (ULTRAM) 5-04 05-06 Oral, ity of tablet 50 22:50: 04:59 Q8HPRN, [place] mg 32 :31 Starting Medical [facility] 02/24/20 Branch at 1750, Until Mon02/25/20 at 2359, Routine, Pain (scale 4-6) acetaminoph 2020-0 Yes 650mg 650 mg, Un [facility] en 5-04 Oral, ity of (TYLENOL) 22:50: Q6HPRN, [place] tablet 650 30 Starting Medic al mg [facility] 02/24/20 Branch at 1750, Until Discontinu ed, Routine, Pain (scale 1-3) iohexol 2020- 2020- No 120mL 120 mL, Unive rs (OMNIPAQUE 5-04 05-04 Intravenou it y of 350 18:30: 18:00 s, ONCE, 1 [place] BULK-150 00 :00 dose, Mon Medica l mL) 02/24/20 at Branch injection 1330, 120 mL Routine amLODIPine 2019- 2020- No [id number] 5mg Take 1 [facility] 5 mg tablet 4-11 05-12 tablet by it y of 00:00: 04:59 mouth [place] 00 :00 daily for Medical 30 days. Branch nicotine 14 2019- 2020- No [id number] 1{patch Apply 1 [facility] mg/24 hr - 05-12 } Patch to ity of patch 00:00: 04:59 area(s) [place] 00 :00 every 24 Medical (twenty-fo Branch ur) hours for 30 days. amLODIPine 2020-0 2020- No [id number] 5mg Take 1 [facility] 5 mg tablet 4- 05-12 tablet by it y of 00:00: 04:59 mouth [place] 00 :00 daily for Medical 30 days. Branch nicotine 14 2019- 2020- No [id number] 1{patch Apply 1 [facility] mg/24 hr 01-31 05-12 } Patch to ity of patch 00:00: 04:59 area(s) [place] 00 :00 every 24 Medical (twenty-fo Branch ur) hours for 30 days. amLODIPine 2019- 2020- No [id number] 5mg Take 1 [facility] 5 mg tablet - 05-12 tablet by it y of 00:00: 04:59 mouth [place] 00 :00 daily for Medical 30 days. Branch nicotine 14 2019- 2020- No [id number] 1{patch Apply 1 [facility] mg/24 hr 4- 05-12 } Patch to ity of patch 00:00: 04:59 area(s) [place] 00 :00 every 24 Medical (twenty-fo Branch ur) hours for 30 days. amLODIPine 2020-0 2020- No [id number] 5mg Take 1 [facility] 5 mg tablet 4- 05-12 tablet by it y of 00:00: 04:59 mouth [place] 00 :00 daily for Medical 30 days. Branch nicotine 14 2019- 2020- No [id number] 1{patch Apply 1 [facility] mg/24 hr 4- 05-12 } Patch to ity of patch 00:00: 04:59 area(s) [place] 00 :00 every 24 Medical (twenty-fo Branch ur) hours for 30 days. amLODIPine 2020- 2020- No [id number] 5mg Take 1 [facility] 5 mg tablet 4 05-12 tablet by it y of 00:00: 04:59 mouth [place] 00 :00 daily for Medical 30 days. Branch nicotine 14 2020- No [id number] 1{patch Apply 1 [facility] mg/24 hr 4 05-12 } Patch to ity of patch 00:00: 04:59 area(s) [place] 00 :00 every 24 Medical (twenty-fo [place] ur) hours for 30 days. amLODIPine 2020- 2020- No [id number] 5mg Take 1 [facility] 5 mg tablet 01-31 05-08 tablet by it y of 00:00: 00:00 mouth [place] 00 :00 daily for Medical 30 days. [place] nicotine 14 2020- No [id number] 1{patch Apply 1 [facility] mg/24 hr 01-31 05-08 } Patch to ity of patch 00:00: 00:00 [facility](s) [place] 00 :00 every 24 Medical (twenty-fo Branch ur) hours for 30 days. amLODIPine 2019-0 2020- No [id number] 5mg Take 1 [facility] 5 mg tablet 01-31-08 tablet by it y of 00:00: 00:00 mouth [place] 00 :00 daily for Medical 30 days. [facility] nicotine 14 2020- No [id number] 1{patch Apply 1 [facility] mg/24 hr 01-31 05-08 } Patch to ity of patch 00:00: 00:00 [facility](s) [place] 00 :00 every 24 Medical (twenty-fo [facility] ur) hours for 30 days. hydrALAZINE 2020-0 Yes 10mg 10 mg, Univ ers (APRESOLINE 4-10 Oral, BID, it y of ) tablet 10 13:00: First dose [place] mg 00 on Mon Medical 01/31/20 at Branch 0800, Until Discontinu ed, Routine hydrALAZINE 2019-0 2020- No [id number] 10mg Take 1 [facility] 10 mg 4-10 05-11 tablet by ity of tablet 00:00: 04:59 mouth 2 [place] 00 :00 (two) Medical times Branch daily for 30 days. hydrALAZINE 2020-0 2020- No [id number] 10mg Take 1 [facility] 10 mg 4-10 05-11 tablet by ity of tablet 00:00: 04:59 mouth 2 [place] 00 :00 (two) Medical times Branch daily for 30 days. hydrALAZINE 2020-0 2020- No [id number] 10mg Take 1 [facility] 10 mg 4-10 05-11 tablet by ity of tablet 00:00: 04:59 mouth 2 [place] 00 :00 (two) Medical times Branch daily for 30 days. hydrALAZINE 2020-0 2020- No [id number] 10mg Take 1 [facility] 10 mg 4-10 05-11 tablet by ity of tablet 00:00: 04:59 mouth 2 [place] 00 :00 (two) Medical times Branch daily for 30 days. hydrALAZINE 2020-0 2020- No [id number] 10mg Take 1 [facility] 10 mg 4-10 05-11 tablet by ity of tablet 00:00: 04:59 mouth 2 [place] 00 :00 (two) Medical times Branch daily for 30 days. hydrALAZINE 2020-0 2020- No [id number] 10mg Take 1 [facility] 10 mg 4-10 05-08 tablet by ity of tablet 00:00: 00:00 mouth 2 [place] 00 :00 (two) Medical times Branch daily for 30 days. hydrALAZINE 2020-0 2020- No [id number] 10mg Take 1 [facility] 10 mg 4-10 05-08 tablet by ity of tablet 00:00: 00:00 mouth 2 [place] 00 :00 (two) Medical times Branch daily for 30 days. NaCl 0.9% 2020-0 Yes 1000mL at 50 Unive rs (NS) IV 4-09 mL/hr, IV ity of infusion 17:00: Infusion, [place] 1,000 mL 00 CONTINUOUS Medic al , Starting Branch [place] 01/30/20 at 1200, Until Discontinu ed, Routine amLODIPine 2020-0 Yes 5mg 5 mg, Univer s (NORVASC) 4-09 Oral, ity of tablet 5 mg 14:00: DAILY, [place] 00 First dose Medical on [place] Branch 01/30/20 at 0900, Until Discontinu ed, Routine tamsulosin 2020-0 Yes .4mg 0.4 mg, Univ ers (FLOMAX) 4-09 Oral, BID, ity o f capsule 0.4 01:00: First dose [place] mg 00 on Mon Medical 01/29/20 at Branch 2000, Until Discontinu ed, Routine NaCl 0.9% 2020-0 2020- No 1000mL at 100 Uni vers (NS) IV 4-08 04-09 mL/hr, IV ity of infusion 14:15: 16:52 Infusion, [place] 1,000 mL 00 :47 CONTINUOUS Medic al , Starting Branch Mon01/29/20 at 0915, Until [place] 01/30/20 at 1152, Routine pyridoxine 2020-0 Yes 50mg 50 mg, Unive rs (vitamin 4-08 Oral, ity of B6) 14:00: QMON// (VITAMIN 00 MON, First Medic al B6) tablet dose on 50 mg Mon01/29/20 at 0900, Until Discontinu ed, Routine donepezil 2020-0 Yes 5mg 5 mg, [facility] (ARICEPT) 4-08 Oral, ity of tablet 5 mg 14:00: DAILY, [place] 00 First dose Medical on Mon01/29/20 at 0900, Until Discontinu ed, Routine aspirin 2020-0 Yes 81mg 81 mg, [facility] chewable 4-08 Oral, ity of tablet 81 14:00: DAILY, [place] mg 00 First dose Medical on Mon01/29/20 at 0900, Until Discontinu ed, Routine heparin 2020-0 Yes 5000U 5,000 [facility] (porcine) 4-08 Units, ity of injection 11:00: Subcutaneo [place] 5,000 Units 00 us, Q8H, [facility] ines First dose Branch on Mon01/29/20 at 0600, Until Discontinu ed, Routine nicotine 2020-0 Yes 1{patch 1 Patch, Un [facility] (NICODERM) 4-08 } Topical, ity o f 14 mg/24 hr 09:45: Administer [place] patch 1 00 over 24 Medical Patch Hours, Branch Q24H, First dose on Mon01/29/20 at 0445, Until Discontinu ed, Routine NaCl 0.9% 2020-0 2020- No 1000mL at 75 Univ ers (NS) IV 4-08 04-08 mL/hr, IV ity of infusion 07:45: 08:17 Infusion, [place] 1,000 mL 00 :00 ONCE, 1 Medical dose, [facility] 01/29/20 at 0245, Routine ondansetron 2020-0 Yes 4mg 4 mg, Slow Univers (ZOFRAN -08 IV Push, ity of (PF)) 06:34: Q6HPRN, [place] injection 4 51 Starting Medi ines mg Mon01/29/20 Branch at 0134, Until Discontinu ed, Routine, Nausea and Vomiting (N/V) acetaminoph 2020-0 Yes 650mg 650 mg, Un [facility]arshana en -08 Oral, ity of (TYLENOL) 06:34: Q6HPRN, [place] tablet 650 45 Starting Medic al mg Mon01/29/20 Branch at 0134, Until Discontinu ed, Routine, Pain (scale 1-3) NaCl 0.9% 2020-0 2020- No 1000mL at 999 Uni vers (NS) bolus -08 04-08 mL/hr, ity of infusion 04:30: 04:30 1,000 mL, [place] 1,000 mL 00 :00 IV Medical Infusion, Branch ONCE, 1 dose, 01/28/20 at 2330, STAT NaCl 0.9% 2020-0 2020- No 1000mL at 999 Uni vers (NS) bolus - 04-08 mL/hr, ity of infusion 03:45: 03:32 1,000 mL, [place] 1,000 mL 00 :00 IV Medical Infusion, Branch ONCE, 1 dose, 01/28/20 at 2245, STAT TRAMADOL 50 2020-0 Yes [id number] TAKE 1 [facility] mg tablet 3-11 TABLET BY ity o f 00:00: MOUTH Medical TIMES Branch DAILY TRAMADOL 50 2020-0 Yes [id number] TAKE 1 [facility] mg tablet 3-11 TABLET BY ity o f 00:00: MOUTH Medical TIMES Branch DAILY TRAMADOL 50 2020-0 Yes [id number] TAKE 1 [facility] mg tablet 3-11 TABLET BY ity o f 00:00: Medical TIMES Branch DAILY TRAMADOL 50 2020-0 Yes [id number] TAKE 1 [facility] mg tablet 3-11 TABLET BY ity o f 00:00: Medical TIMES Branch DAILY TRAMADOL 50 2020-0 Yes [id number] TAKE 1 [facility] mg tablet 3-11 TABLET BY ity o f 00:00: MOUTH Medical TIMES Branch DAILY TRAMADOL 50 2020-0 Yes [id number] TAKE 1 [facility] mg tablet 3-11 TABLET BY ity o f 00:00: MOUTH [place] 00 THREE Medical TIMES Branch DAILY TRAMADOL 50 2020-0 Yes [id number] TAKE 1 [facility] mg tablet 3-11 TABLET BY ity o f 00:00: MOUTH [place] 00 THREE Medical TIMES Branch DAILY TRAMADOL 50 2020-0 Yes [id number] TAKE 1 [facility] mg tablet 3-11 TABLET BY ity o f 00:00: MOUTH [place] 00 THREE Medical TIMES Branch DAILY TRAMADOL 50 2020-0 Yes [id number] TAKE 1 [facility] mg tablet 3-11 TABLET BY ity o f 00:00: MOUTH [place] 00 THREE Medical TIMES Branch DAILY TRAMADOL 50 2020-0 Yes [id number] TAKE 1 [facility] mg tablet 3-11 TABLET BY ity o f 00:00: MOUTH [place] 00 THREE Medical TIMES Branch DAILY TRAMADOL 50 2020-0 2020- No [id number] TAKE 1 [facility] mg tablet 3-11 05-08 TABLET BY ity of 00:00: 00:00 [facility] 00 :00 [facility] Medical TIMES Branch DAILY TRAMADOL 50 2020-0 2020- No [id number] TAKE 1 [facility] mg tablet 3-11 05-08 TABLET BY ity of 00:00: 00:00 [facility] 00 :00 [facility] Medical TIMES Branch DAILY hydrALAZINE 2020-0 2020- No [id number] 25mg Take 1 [facility] 25 mg 3-09 04-10 tablet by ity of tablet 00:00: 00:00 mouth 2 [place] 00 :00 (two) Medical times Branch daily for 30 days. hydrALAZINE 2019-0 2020- No [id number] 25mg Take 1 [facility] 25 mg 3-09 04-09 tablet by ity of tablet 00:00: 04:59 mouth 2 [place] 00 :00 (two) Medical times Branch daily for 30 days. hydrALAZINE 2020-0 2020- No [id number] 25mg Take 1 [facility] 25 mg 3-09 04-09 tablet by ity of tablet 00:00: 04:59 mouth 2 [place] 00 :00 (two) Medical times Branch daily for 30 days. hydrALAZINE 2020-0 2020- No [id number] 25mg Take 1 [facility] 25 mg 3-09 04-09 tablet by ity of tablet 00:00: 04:59 mouth 2 [place] 00 :00 (two) Medical times Branch daily for 30 days. hydrALAZINE 2020-0 2020- No [id number] 25mg Take 1 [facility] 25 mg 12-29 tablet by ity of tablet 00:00: 04:59 mouth 2 [place] 00 :00 (two) Medical times [place] daily for 30 days. hydrALAZINE 2020-0 2020- No [id number] 25mg Take 1 [facility] 25 mg 12-29- tablet by ity of tablet 00:00: 04:59 mouth 2 [place] 00 :00 (two) Medical times [place] daily for 30 days. hydrALAZINE 2020-0 Yes 25mg 25 mg, Univ ers (APRESOLINE 3-08 Oral, BID, it y of ) tablet 25 20:30: First dose [place] mg 00 on [facility] 12/29/19 at Branch 1530, Until Discontinu ed, Routine haloperidol 2020-0 2020- No 5mg 5 mg, Univ ers lactate 12-28 03-08 Intramuscu ity o f (HALDOL) 08:15: 09:10 [place], ONCE, [place] injection 5 00 :00 1 dose, Medic al mg [place] 12/29/19 [facility] at 0315, Routine amLODIPine 2020-0 2020- No 5mg 5 mg, Unive rs (NORVASC) 3 03-07 Oral, ity of tablet 5 mg 23:00: 23:03 ONCE, 1 [place] 00 :00 dose, [facility] 12/28/19 at Branch 1700, Routine hydralAZINE 2020-0 Yes 10mg 10 mg, Univ ers (APRESOLINE 3-07 Intravenou it y of ) injection 21:52: s, PRN - [place] 10 mg 09 SEE Medical INSTRUCTIO Branch NS, Starting [facility] 12/28/19 at 1552, Until Discontinu ed, Routine, Hypertensi ve emergency, Hypertensi on, Q4h for SBP>160 or DBP>100 amLODIPine 2020-0 Yes 5mg 5 mg, Univer s (NORVASC) 3- Oral, ity of tablet 5 mg 16:45: DAILY, [place] 00 First dose Medical on [facility] 12/28/19 at 1045, Until Discontinu ed, Routine SERTraline 2020-0 Yes 200mg 200 mg, Uni vers (ZOLOFT) 3-07 Oral, ity of tablet 200 15:00: DAILY, [place] mg 00 First dose Medical on [facility] Branch 12/28/19 at 0900, Until Discontinu ed, Routine donepezil 2020-0 Yes 5mg 5 mg, Univers (ARICEPT) 3- Oral, ity of tablet 5 mg 15:00: DAILY, [place] 00 First dose Medical on [facility] 12/28/19 at 0900, Until Discontinu ed, Routine aspirin 2020-0 Yes 81mg 81 mg, [facility] chewable 3- Oral, ity of tablet 81 15:00: DAILY, [place] mg 00 First dose Medical on [facility] Branch 12/28/19 at 0900, Until Discontinu ed, Routine enoxaparin 2020-0 Yes 30mg 30 mg, Unive rs (LOVENOX) 3- Subcutaneo ity of injection 15:00: us, DAILY, [place] 30 mg 00 First dose Medical on [facility] 12/28/19 at 0900, Until Discontinu ed, Routine traZODone 2020-0 Yes 200mg 200 mg, Univ ers (DESYREL) 3-07 Oral, QHS, ity of tablet 200 03:00: First dose [place] mg 00 on Mon Medical 12/27/19 at Branch 2100, Until Discontinu ed, Routine simvastatin 2020-0 Yes 20mg 20 mg, Univ ers (ZOCOR) 3-07 Oral, QHS, ity of tablet 20 03:00: First dose [place] mg 00 on Mon Medical 12/27/19 at Branch 2100, Until Discontinu ed, Routine QUEtiapine 2020-0 Yes 25mg 25 mg, Unive rs (SEROQUEL) 3-07 Oral, QHS, ity of tablet 25 03:00: First dose [place] mg 00 on Mon Medical 12/27/19 at Branch 2100, Until Discontinu ed, Routine Sliding 2020-0 Yes Subcutaneo Univ ers Scale 3-07 us, TID ity of Insulin - 03:00: MEALS+HS, [place] Aspart 00 First dose Medical (NOVOLOG) + on Mon Branch [facility] 12/27/19 at Testing 2100, Until Discontinu ed, Routine tamsulosin 2020-0 Yes .4mg 0.4 mg, Univ ers (FLOMAX) 3-07 Oral, BID, ity o f capsule 0.4 02:00: First dose [place] mg 00 on Mon Medical 12/27/19 at Branch 1999, Until Discontinu ed, Routine nicotine 2020-0 Yes 1{patch 1 Patch, Un [facility] (NICODERM) 12-27 } Topical, ity o f 21 mg/24 hr 02:00: Administer [place] patch 1 00 over 24 Medical Patch Hours, Branch Q24H, First dose on Mon12/27/19 at 2000, Until Discontinu ed, Routine NaCl 0.9% 2020-0 2020- No 1000mL at 100 Uni vers (NS) IV 3- 03-08 mL/hr, IV ity of infusion 00:15: 16:59 Infusion, [place] 1,000 mL 00 :35 CONTINUOUS Medic al , Starting Branch Mon12/27/19 at 1815, Until 12/29/19 at 1159, Routine ondansetron 2020-0 Yes 4mg 4 mg, Slow Univers (ZOFRAN 12-27 IV Push, ity of (PF)) 00:04: Q6HPRN, [place] injection 4 08 Starting Medi ines mg Mon12/27/19 Branch at 1804, Until Discontinu ed, Routine, Nausea and Vomiting (N/V) acetaminoph 2020-0 Yes 650mg 650 mg, Un [facility]arshana en 307 Oral, ity of (TYLENOL) 00:04: Q6HPRN, [place] tablet 650 02 Starting Medic al mg Mon12/27/19 Branch at 1804, Until Discontinu ed, Routine, Pain (scale 1-3) NaCl 0.9% 2020-0 2020- No 1000mL at 999 Uni vers (NS) bolus 3-06 03-06 mL/hr, ity of infusion 23:45: 23:57 1,000 mL, [place] 1,000 mL 00 :00 IV Medical Infusion, Branch ONCE, 1 dose, Mon12/27/19 at 1745, MATEO NaCl 0.9% 2020-0 2020- No 500mL at 999 Univ ers (NS) bolus 3-06 03-06 mL/hr, 500 it y of infusion 19:45: 20:20 mL, IV [place] 500 mL 00 :00 Infusion, Medical ONCE, 1 Branch dose, Mon12/27/19 at 1345, MATEO simvastatin 2020-0 Yes 40mg 40 mg, Univ ers (ZOCOR) 3-01 Oral, QHS, ity of tablet 40 03:00: First dose [place] mg 00 on [facility] Medical 12/21/19 at Branch 2100, Until Discontinu ed, Routine DULoxetine 2020-0 Yes 40mg 40 mg, Unive rs (CYMBALTA) 2- Oral, ity of capsule 40 15:00: DAILY, [place] mg 00 First dose Medical on [facility] Branch 12/21/19 at 0900, Until Discontinu ed donepezil 2020-0 Yes 5mg 5 mg, Univers (ARICEPT) 2- Oral, ity of tablet 5 mg 15:00: DAILY, [place] 00 First dose Medical on [facility] Branch 12/21/19 at 0900, Until Discontinu ed, Routine docusate 2020-0 Yes 100mg 100 mg, Unive rs (COLACE) 2- Oral, BID, ity o f capsule 100 14:00: First dose [place] mg 00 on [facility] Medical 12/21/19 at Branch 0800, Until Discontinu ed, Routine carvediloL 2020-0 Yes 6.25mg 6.25 mg, U nivers (COREG) 2- Oral, BID ity of tablet 6.25 14:00: MEALS, [place] mg 00 First dose Medical on [facility] Branch 12/21/19 at 0800, Until Discontinu ed, Routine NaCl 0.9% 2020-0 Yes 1000mL at 125 Univ ers (NS) IV 2-29 mL/hr, IV ity of infusion 06:15: Infusion, [place] 1,000 mL 00 CONTINUOUS Medic al , Starting Branch [facility] 12/21/19 at 0015, Until Discontinu ed, Routine Sliding 2020-0 Yes Subcutaneo Univ ers Scale 2-29 us, TID ity of Insulin - 05:15: MEALS+HS, [place] Aspart 00 First dose Medical (NOVOLOG) + on Mon Branch [facility] 12/20/19 at Testing 2315, Until Discontinu ed, Routine pregabalin 2020-0 Yes 150mg 150 mg, Uni vers (LYRICA) 2- Oral, BID, ity o f capsule 150 05:15: First dose [place] mg 00 on Fri Medical 12/20/19 at Branch 2315, Until Discontinu ed, Routine
ensemble member approving Restricted medication : MEGADC traZODone 2020-0 Yes 100mg 100 mg, Univ ers (DESYREL) 2-29 Oral, QHS, ity of tablet 100 05:15: First dose [place] mg 00 on Mon Medical 12/20/19 at Branch 2315, Until Discontinu ed, Routine traMADol 2020-0 Yes 50mg 50 mg, Univers (ULTRAM) 2-29 Oral, TID, ity o f tablet 50 05:15: First dose [place] mg 00 on Mon Medical 12/20/19 at Branch 2315, Until Discontinu ed, Routine tamsulosin 2020-0 Yes .4mg 0.4 mg, Univ ers (FLOMAX) 2- Oral, BID, ity o f capsule 0.4 05:15: First dose [place] mg 00 on Mon Medical 12/20/19 at Branch 2315, Until Discontinu ed, Routine QUEtiapine 2020-0 Yes 25mg 25 mg, Unive rs (SEROQUEL) 2- Oral, QHS, ity of tablet 25 05:15: First dose [place] mg 00 on Mon [facility] 12/20/19 at Branch 2315, Until Discontinu ed, Routine aspirin 2020-0 Yes 81mg 81 mg, Univers chewable 2- Oral, QAM ity of tablet 81 05:15: WITH [place] mg 00 BREAKFAST, Medical First dose Branch on Mon12/20/19 at 2315, Until Discontinu ed, Routine ondansetron 2020-0 Yes 4mg 4 mg, Slow Univers (ZOFRAN IV Push, ity of (PF)) 05:06: Q6HPRN, [place] injection 4 11 Starting Medi ines mg Fri Branch 12/20/19 at 2306, Until Discontinu ed, Routine, Nausea and Vomiting (N/V) glucagon 2020-0 Yes 1mg 1 mg, Univers (GLUCAGEN Intramuscu ity of DIAGNOSTIC 05:05: lar, PRN, [place] KIT) 28 Starting Medical injection 1 Fri Branch mg 12/20/19 at 2305, Until Discontinu ed, MATEO, Blood Glucose < or = 70 mg/dL and patient is unable to swallow or has mental changes. dextrose 50 2020-0 Yes 25mL 25 mL, Univ ers % in water 2- Slow IV ity of (D50W) 05:05: Push, PRN, [place] injection 28 Starting Medica l 25 mL Fri Branch 12/20/19 at 2305, Until Discontinu ed, MATEO, Blood Glucose < or = 70 mg/dL and patient is unable to swallow or has mental status changes. NaCl 0.9% 2019-0 2020- No 1000mL at 999 Uni vers (NS) bolus mL/hr, ity of infusion 01:00: 01:00 1,000 mL, [place] 1,000 mL 00 :00 IV Medical Infusion, Branch ONCE, 1 dose, 12/20/19 at 1900, MATEO amLODIPine 2020-0 2020- No [id number] 5mg Take 1 [facility] 5 mg tablet 01-20 tablet by it y of 00:00: 04:59 mouth [place] 00 :00 daily for Medical 30 days. Branch simvastatin 2020-0 2020- No [id number] 20mg Take 1 [facility] 20 mg 01-20 tablet by ity of tablet 00:00: 04:59 mouth at [place] 00 :00 bedtime Medical for 30 Branch days. amLODIPine 2020-0 2020- No [id number] 5mg Take 1 [facility] 5 mg tablet 01-20 tablet by it y of 00:00: 04:59 mouth [place] 00 :00 daily for Medical 30 days. Branch simvastatin 2020-0 2020- No [id number] 20mg Take 1 [facility] 20 mg - tablet by ity of tablet 00:00: 04:59 mouth at [place] 00 :00 bedtime Medical for 30 Branch days. amLODIPine 2020-0 2020- No [id number] 5mg Take 1 [facility] 5 mg tablet 01-20 tablet by it y of 00:00: 04:59 mouth [place] 00 :00 daily for Medical 30 days. Branch simvastatin 2020-0 2020- No [id number] 20mg Take 1 [facility] 20 mg - tablet by ity of tablet 00:00: 04:59 mouth at [place] 00 :00 bedtime Medical for 30 Branch days. amLODIPine 2020-0 2020- No [id number] 5mg Take 1 [facility] 5 mg tablet - tablet by it y of 00:00: 04:59 mouth [place] 00 :00 daily for Medical 30 days. Branch simvastatin 2020-0 2020- No [id number] 20mg Take 1 [facility] 20 mg - tablet by ity of tablet 00:00: 04:59 mouth at [place] 00 :00 bedtime Medical for 30 Branch days. amLODIPine 2020-0 2020- No [id number] 5mg Take 1 [facility] 5 mg tablet 01-20 tablet by it y of 00:00: 04:59 mouth [place] 00 :00 daily for Medical 30 days. Branch simvastatin 2019-0 2020- No [id number] 20mg Take 1 [facility] 20 mg 01-20 tablet by ity of tablet 00:00: 04:59 mouth at [place] 00 :00 bedtime Medical for 30 Branch days. amLODIPine 2019- 2020- No [id number] 5mg Take 1 [facility] 5 mg tablet 01-20 tablet by it y of 00:00: 04:59 mouth [place] 00 :00 daily for Medical 30 days. Branch simvastatin 2019-0 2020- No [id number] 20mg Take 1 [facility] 20 mg 01-20 tablet by ity of tablet 00:00: 04:59 mouth at [place] 00 :00 bedtime Medical for 30 Branch days. amLODIPine 2019- 2020- No [id number] 5mg Take 1 [facility] 5 mg tablet 01-20 tablet by it y of 00:00: 04:59 mouth [place] 00 :00 daily for Medical 30 days. Branch simvastatin 2019-0 2020- No [id number] 20mg Take 1 [facility] 20 mg 01-20 tablet by ity of tablet 00:00: 04:59 mouth at [place] 00 :00 bedtime Medical for 30 Branch days. LISINOPRIL 2019-0 2020- No TAKE 1 Univ ers 10 mg 11-25 TABLET BY ity of tablet 00:00: 00:00 MOUTH [place] 00 :00 EVERY DAY Medical Branch LYRICA 150 2020-0 Yes [id number] TAKE 1 [facility] mg capsule 1-03 CAPSULE BY ity of 00:00: MOUTH [place] 00 TWICE Medical DAILY Branch LYRICA 150 2020-0 Yes [id number] TAKE 1 [facility] mg capsule 1-03 CAPSULE BY ity of 00:00: MOUTH [place] 00 TWICE Medical DAILY Branch LYRICA 150 2020-0 Yes [id number] TAKE 1 Univers mg capsule 1-03 CAPSULE BY ity of 00:00: MOUTH [place] 00 TWICE Medical DAILY Branch LYRICA 150 2020-0 Yes [id number] TAKE 1 Univers mg capsule 1-03 CAPSULE BY ity of 00:00: MOUTH [place] 00 TWICE Medical DAILY Branch LYRICA 150 2020-0 Yes [id number] TAKE 1 Univers mg capsule 1-03 CAPSULE BY ity of 00:00: MOUTH [place] 00 TWICE Medical DAILY Branch LYRICA 150 2020-0 Yes [id number] TAKE 1 Univers mg capsule 1-03 CAPSULE BY ity of 00:00: MOUTH [place] 00 TWICE Medical DAILY Branch LYRICA 150 2020-0 Yes [id number] TAKE 1 Univers mg capsule 1-03 CAPSULE BY ity of 00:00: MOUTH TWICE Medical DAILY Branch LYRICA 150 2020-0 Yes [id number] TAKE 1 Univers mg capsule 1-03 CAPSULE BY ity of 00:00: MOUTH 00 TWICE Medical DAILY Branch LYRICA 150 2020-0 Yes [id number] TAKE 1 Univers mg capsule 1-03 CAPSULE BY ity of 00:00: MOUTH TWICE Medical DAILY Branch LYRICA 150 2020-0 Yes [id number] TAKE 1 Univers mg capsule 1-03 CAPSULE BY ity of 00:00: MOUTH TWICE Medical DAILY Branch LYRICA 150 2020-0 Yes [id number] TAKE 1 Univers mg capsule 1-03 CAPSULE BY ity of 00:00: MOUTH [place] TWICE Medical DAILY Branch LYRICA 150 2020-0 Yes [id number] TAKE 1 Univers mg capsule 1-03 CAPSULE BY ity of 00:00: MOUTH 00 TWICE Medical DAILY Branch LYRICA 150 2020-0 Yes [id number] TAKE 1 Univers mg capsule 1-03 CAPSULE BY ity of 00:00: MOUTH [place] 00 TWICE Medical DAILY Branch LYRICA 150 2020-0 Yes [id number] TAKE 1 Univers mg capsule 1-03 CAPSULE BY ity of 00:00: MOUTH [place] 00 TWICE Medical DAILY Branch LYRICA 150 2020-0 Yes [id number] TAKE 1 [facility] mg capsule 1-03 CAPSULE BY ity of 00:00: MOUTH [place] 00 TWICE Medical DAILY Branch LYRICA 150 2020-0 Yes [id number] TAKE 1 Univers mg capsule 1-03 CAPSULE BY ity of 00:00: MOUTH [place] 00 TWICE Medical DAILY Branch LYRICA 150 2020-0 2020- No [id number] TAKE 1 Univers mg capsule 1-03 05-08 CAPSULE BY it y of 00:00: 00:00 MOUTH [place] 00 :00 TWICE Medical DAILY Branch TAMSULOSIN 2019-1 Yes [id number] TAKE 1 Univers 0.4 mg 24 1-27 CAPSULE BY ity of hr capsule 00:00: MOUTH [place] 00 TWICE Medical DAILY Branch TAMSULOSIN 2019-1 Yes [id number] TAKE 1 Univers 0.4 mg 24 1-27 CAPSULE BY ity of hr capsule 00:00: MOUTH [place] TWICE Medical DAILY Branch TAMSULOSIN 2018- Yes [id number] TAKE 1 Univers 0.4 mg 24 1-27 CAPSULE BY ity of hr capsule 00:00: MOUTH TWICE Medical DAILY Branch TAMSULOSIN 2018-10 Yes [id number] TAKE 1 Univers 0.4 mg 24 1-27 CAPSULE BY ity of hr capsule 00:00: MOUTH TWICE Medical DAILY Branch TAMSULOSIN 2018-10 Yes [id number] TAKE 1 Univers 0.4 mg 24 1-27 CAPSULE BY ity of hr capsule 00:00: MOUTH TWICE Medical DAILY Branch TAMSULOSIN 2018-10 Yes [id number] TAKE 1 Univers 0.4 mg 24 1-27 CAPSULE BY ity of hr capsule 00:00: MOUTH TWICE Medical DAILY Branch TAMSULOSIN 2018-10 Yes [id number] TAKE 1 Univers 0.4 mg 24 1-27 CAPSULE BY ity of hr capsule 00:00: MOUTH TWICE Medical DAILY Branch TAMSULOSIN 2018-10 Yes [id number] TAKE 1 Univers 0.4 mg 24 1-27 CAPSULE BY ity of hr capsule 00:00: MOUTH TWICE Medical DAILY Branch TAMSULOSIN 2018-10 Yes [id number] TAKE 1 Univers 0.4 mg 24 1-27 CAPSULE BY ity of hr capsule 00:00: MOUTH TWICE Medical DAILY Branch TAMSULOSIN 2018-10 Yes [id number] TAKE 1 Univers 0.4 mg 24 1-27 CAPSULE BY ity of hr capsule 00:00: MOUTH TWICE Medical DAILY Branch TAMSULOSIN 2018-10 Yes [id number] TAKE 1 Univers 0.4 mg 24 1-27 CAPSULE BY ity of hr capsule 00:00: MOUTH TWICE Medical DAILY Branch TAMSULOSIN 2018-10 Yes [id number] TAKE 1 Univers 0.4 mg 24 1-27 CAPSULE BY ity of hr capsule 00:00: MOUTH [place] 00 TWICE Medical DAILY Branch TAMSULOSIN 2018-10 Yes [id number] TAKE 1 Univers 0.4 mg 24 1-27 CAPSULE BY ity of hr capsule 00:00: MOUTH [place] TWICE Medical DAILY Branch TAMSULOSIN 2018-10 Yes [id number] TAKE 1 Univers 0.4 mg 24 1-27 CAPSULE BY ity of hr capsule 00:00: MOUTH [place] 00 TWICE Medical DAILY Branch TAMSULOSIN 2019- Yes [id number] TAKE 1 Univers 0.4 mg 24 -27 CAPSULE BY ity of hr capsule 00:00: MOUTH [place] 00 TWICE Medical DAILY Branch TAMSULOSIN 2018- 2020- No [id number] TAKE 1 Univers 0.4 mg 24 1-27 05-08 CAPSULE BY ity of hr capsule 00:00: 00:00 MOUTH [place] 00 :00 TWICE Medical DAILY Branch TAMSULOSIN 2019- 2020- No [id number] TAKE 1 Univers 0.4 mg 24 -27 05-08 CAPSULE BY ity of hr capsule 00:00: 00:00 MOUTH [place] 00 :00 TWICE Medical DAILY Branch aspirin 81 2018- Yes 81mg Take 1 Unive rs mg EC 1-05 tablet by ity of tablet 00:00: mouth [place] 00 daily. Medical Branch aspirin 81 2019- Yes 81mg Take 1 Unive rs mg EC 1-05 tablet by ity of tablet 00:00: mouth [place] 00 daily. Medical Branch aspirin 81 2019- Yes 81mg Take 1 Unive rs mg EC 1-05 tablet by ity of tablet 00:00: mouth [place] 00 daily. Medical Branch aspirin 81 2019- Yes 81mg Take 1 Unive rs mg EC 1-05 tablet by ity of tablet 00:00: mouth [place] 00 daily. Medical Branch aspirin 81 2019- Yes 81mg Take 1 Unive rs mg EC 1-05 tablet by ity of tablet 00:00: mouth [place] 00 daily. Medical Branch aspirin 81 2019- Yes 81mg Take 1 Unive rs mg EC 1-05 tablet by ity of tablet 00:00: mouth [place] 00 daily. Medical Branch aspirin 81 2019- Yes 81mg Take 1 Unive rs mg EC 1-05 tablet by ity of tablet 00:00: mouth [place] 00 daily. Medical Branch aspirin 81 2019- Yes 81mg Take 1 Unive rs mg EC 1-05 tablet by ity of tablet 00:00: mouth [place] 00 daily. Medical Branch aspirin 81 2019- Yes 81mg Take 1 Unive rs mg EC 1-05 tablet by ity of tablet 00:00: mouth [place] 00 daily. Medical Branch aspirin 81 2019- Yes 81mg Take 1 Unive rs mg EC 1-05 tablet by ity of tablet 00:00: mouth [place] 00 daily. Medical Branch aspirin 81 2018- Yes 81mg Take 1 Unive rs mg EC 1-05 tablet by ity of tablet 00:00: mouth [place] 00 daily. Medical Branch aspirin 81 2019- Yes 81mg Take 1 Unive rs mg EC 1-05 tablet by ity of tablet 00:00: mouth [place] 00 daily. Medical Branch aspirin 81 2018- Yes 81mg Take 1 Unive rs mg EC 1-05 tablet by ity of tablet 00:00: mouth [place] 00 daily. Medical Branch aspirin 81 2018- Yes 81mg Take 1 Unive rs mg EC 1-05 tablet by ity of tablet 00:00: mouth [place] 00 daily. Medical Branch aspirin 81 2019- Yes 81mg Take 1 [facility] mg EC 1-05 tablet by [facility] of tablet 00:00: mouth [place] 00 daily. Medical Branch aspirin 81 2018- 2020- No 81mg Take 1 [facility] mg EC 1-05 05-08 tablet by it[facility] of tablet 00:00: 00:00 mouth [place] 00 :00 daily. Medical Branch aspirin 81 2018- 2020- No 81mg Take 1 [facility] mg EC 1-05 05-08 tablet by it[facility] of tablet 00:00: 00:00 mouth [place] 00 :00 daily. Medical [facility] SIMVASTATIN 2019- 2020- No [id number] 40mg TAKE 1 [facility] 40 mg 0-30 02-29 TABLET BY it[facility] of tablet 00:00: 00:00 MOUTH AT [place] 00 :00 BEDTIME Medical Branch TRAMADOL 50 2019-0 Yes [id number] TAKE 1 [facility] mg tablet 9-08 TABLET BY ity o f 00:00: MOUTH [place] 00 THREE Medical TIMES Branch DAILY TRAMADOL 50 2019-0 Yes [id number] TAKE 1 [facility] mg tablet 9-08 TABLET BY ity o f 00:00: MOUTH [place] 00 THREE Medical TIMES Branch DAILY TRAMADOL 50 2019-0 Yes [id number] TAKE 1 [facility] mg tablet 9-08 TABLET BY ity o f 00:00: MOUTH [place] 00 THREE Medical TIMES Branch DAILY TRAMADOL 50 2019-0 Yes [id number] TAKE 1 [facility] mg tablet 9-08 TABLET BY ity o f 00:00: MOUTH [place] 00 THREE Medical TIMES Branch DAILY TRAMADOL 50 2019-0 Yes [id number] TAKE 1 [facility] mg tablet 9-08 TABLET BY ity o f 00:00: MOUTH [place] 00 THREE Medical TIMES Branch DAILY TRAMADOL 50 2018- Yes [id number] TAKE 1 [facility] mg tablet 9-08 TABLET BY ity o f 00:00: MOUTH 00 THREE Medical TIMES Branch DAILY TRAMADOL 50 2018-0 Yes [id number] TAKE 1 [facility] mg tablet 9-08 TABLET BY ity o f 00:00: MOUTH THREE Medical TIMES [place] DAILY TRAMADOL 50 2018- Yes [id number] TAKE 1 [facility] mg tablet 9-08 TABLET BY ity o f 00:00: MOUTH Medical TIMES [place] DAILY TRAMADOL 50 0 2020- No [id number] TAKE 1 [facility] mg tablet - 03-11 TABLET BY ity of 00:00: 00:00 MOUTH [place] 00 :00 [facility] TIMES [place] DAILY cephALEXin 2019- No 500mg 500 mg, Un darshana (KEFLEX) 06-19 Oral, ity of capsule 500 21:00: 19:53 ONCE, 1 [place] 00 :00 dose, Mon06/19/19 at Branch 1600, MATEO
Re ason for Anti-Infec tive: Documented Infection< br>Documen velasquez Infection Site: Urine
D uration of Therapy: 7 days NaCl 0.9% 2018- No 1000mL at 999 [facility] vers (NS) bolus 06-19 mL/hr, ity of infusion 21:00: 20:42 1,000 mL, [place] 1,000 mL 00 :00 IV Medical Infusion, [place] ONCE, 1 dose, Mon06/19/19 at 1600, STAT cephALEXin 2019- No [id number] 500mg Take 1 [facility] (KEFLEX) 06-19 [id number] capsule by it y of 500 mg 00:00: 04:59 mouth 3 [place] capsule 00 :00 (three) [facility] times [place] daily for 10 days. pyridoxine, Yes [id number] 50mg Take 1 [facility] vitamin B6, 8-12 tablet by ity of 50 mg 00:00: mouth [place] tablet 00 every Medical Monday, Branch Monday and Monday. Needs the active form, pyridoxal- 5-phosphat e, if possible. pyridoxine, Yes [id number] 50mg Take 1 [facility] vitamin B6, 8-12 tablet by ity of 50 mg 00:00: mouth [place] tablet 00 every Medical Monday, Branch Monday and Monday. Needs the active form, pyridoxal- 5-phosphat e, if possible. pyridoxine, Yes [id number] 50mg Take 1 [facility] vitamin B6, 8-12 tablet by ity of 50 mg 00:00: mouth [place] tablet 00 every Medical Monday, Branch Monday and Monday. Needs the active form, pyridoxal- 5-phosphat e, if possible. pyridoxine, Yes [id number] 50mg Take 1 [facility] vitamin B6, 8-12 tablet by ity of 50 mg 00:00: mouth [place] tablet 00 every Medical Monday, Branch Monday and Monday. Needs the active form, pyridoxal- 5-phosphat e, if possible. pyridoxine, Yes [id number] 50mg Take 1 [facility] vitamin B6, 8-12 tablet by ity of 50 mg 00:00: mouth [place] tablet 00 every Medical Monday, Branch Monday and Monday. Needs the active form, pyridoxal- 5-phosphat e, if possible. pyridoxine, Yes [id number] 50mg Take 1 [facility] vitamin B6, 8-12 tablet by ity of 50 mg 00:00: mouth [place] tablet 00 every Medical Monday, Branch Monday and Monday. Needs the active form, pyridoxal- 5-phosphat e, if possible. pyridoxine, Yes [id number] 50mg Take 1 [facility] vitamin B6, 8-12 tablet by ity of 50 mg 00:00: mouth [place] tablet 00 every Medical Monday, Branch Monday and Monday. Needs the active form, pyridoxal- 5-phosphat e, if possible. pyridoxine, Yes [id number] 50mg Take 1 [facility] vitamin B6, 8-12 tablet by ity of 50 mg 00:00: mouth [place] tablet 00 every Medical Monday, Branch Monday and Monday. Needs the active form, pyridoxal- 5-phosphat e, if possible. pyridoxine, Yes [id number] 50mg Take 1 [facility] vitamin B6, 8-12 tablet by ity of 50 mg 00:00: mouth [place] tablet 00 every Medical Monday, Branch Monday and Monday. Needs the active form, pyridoxal- 5-phosphat e, if possible. pyridoxine, Yes [id number] 50mg Take 1 [facility] vitamin B6, 8-12 tablet by ity of 50 mg 00:00: mouth [place] tablet 00 every Medical Monday, Branch Monday and Monday. Needs the active form, pyridoxal- 5-phosphat e, if possible. pyridoxine, Yes [id number] 50mg Take 1 [facility] vitamin B6, 8-12 tablet by ity of 50 mg 00:00: mouth [place] tablet 00 every Medical Monday, Branch Monday and Monday. Needs the active form, pyridoxal- 5-phosphat e, if possible. pyridoxine, Yes [id number] 50mg Take 1 [facility] vitamin B6, 8-12 tablet by ity of 50 mg 00:00: mouth [place] tablet 00 every Medical Monday, Branch Monday and Monday. Needs the active form, pyridoxal- 5-phosphat e, if possible. pyridoxine, Yes [id number] 50mg Take 1 [facility] vitamin B6, 8-12 tablet by ity of 50 mg 00:00: mouth [place] tablet 00 every Medical Monday, Branch Monday and Monday. Needs the active form, pyridoxal- 5-phosphat e, if possible. pyridoxine, Yes [id number] 50mg Take 1 [facility] vitamin B6, 8-12 tablet by ity of 50 mg 00:00: mouth [place] tablet 00 every Medical Monday, Branch Monday and Monday. Needs the active form, pyridoxal- 5-phosphat e, if possible. pyridoxine, Yes [id number] 50mg Take 1 [facility] vitamin B6, 8-12 tablet by ity of 50 mg 00:00: mouth [place] tablet 00 every Medical Monday, Branch Monday and Monday. Needs the active form, pyridoxal- 5-phosphat e, if possible. pyridoxine, Yes [id number] 50mg Take 1 [facility] vitamin B6, 8-12 tablet by ity of 50 mg 00:00: mouth [place] tablet 00 every Medical Monday, Branch Monday and Monday. Needs the active form, pyridoxal- 5-phosphat e, if possible. pyridoxine, 2019-0 Yes [id number] 50mg Take 1 [facility] vitamin B6, 8-12 tablet by ity of 50 mg 00:00: mouth [place] tablet 00 every Medical Monday, Branch Monday and Monday. Needs the active form, pyridoxal- 5-phosphat e, if possible. pyridoxine, Yes [id number] 50mg Take 1 [facility] vitamin B6, 8-12 tablet by ity of 50 mg 00:00: mouth [place] tablet 00 every Medical Monday, Branch Monday and Monday. Needs the active form, pyridoxal- 5-phosphat e, if possible. pyridoxine, Yes [id number] 50mg Take 1 [facility] vitamin B6, 8-12 tablet by ity of 50 mg 00:00: mouth [place] tablet 00 every Medical Monday, Branch Monday and Monday. Needs the active form, pyridoxal- 5-phosphat e, if possible. pyridoxine, Yes [id number] 50mg Take 1 [facility] vitamin B6, 8-12 tablet by ity of 50 mg 00:00: mouth [place] tablet 00 every Medical Monday, Branch Monday and Monday. Needs the active form, pyridoxal- 5-phosphat e, if possible. pyridoxine, Yes [id number] 50mg Take 1 [facility] vitamin B6, 8-12 tablet by ity of 50 mg 00:00: mouth [place] tablet 00 every Medical Monday, Branch Monday and Monday. Needs the active form, pyridoxal- 5-phosphat e, if possible. pyridoxine, Yes [id number] 50mg Take 1 [facility] vitamin B6, 8-12 tablet by ity of 50 mg 00:00: mouth [place] tablet 00 every Medical Monday, Branch Monday and Monday. Needs the active form, pyridoxal- 5-phosphat e, if possible. pyridoxine, Yes [id number] 50mg Take 1 [facility] vitamin B6, 8-12 tablet by ity of 50 mg 00:00: mouth [place] tablet 00 every Medical Monday, Branch Monday and Monday. Needs the active form, pyridoxal- 5-phosphat e, if possible. pyridoxine, Yes [id number] 50mg Take 1 [facility] vitamin B6, 8-12 tablet by ity of 50 mg 00:00: mouth [place] tablet 00 every Medical Monday, Branch Monday and Monday. Needs the active form, pyridoxal- 5-phosphat e, if possible. pyridoxine, Yes [id number] 50mg Take 1 [facility] vitamin B6, 8-12 tablet by ity of 50 mg 00:00: mouth [place] tablet 00 every Medical Monday, Branch Monday and Monday. Needs the active form, pyridoxal- 5-phosphat e, if possible. pyridoxine, 2019- No [id number] 50mg Take 1 [facility] vitamin B6, 8-08 tablet by it y of 50 mg 00:00: 00:00 mouth [place] tablet 00 :00 every Medical Monday, Branch Monday and Monday. Needs the active form, pyridoxal- 5-phosphat e, if possible. pyridoxine, 2019- No [id number] 50mg Take 1 [facility] vitamin B6, 8-08 tablet by it y of 50 mg 00:00: 00:00 mouth [place] tablet 00 :00 every Medical Monday, Branch Monday and Monday. Needs the active form, pyridoxal- 5-phosphat e, if possible. Zinc Yes 1{tbl} Take 1 [facility] ers Acetate, 8-11 tablet by ity of Oral, 25 mg 00:00: mouth [place] (zinc) Cap 00 daily. [facility] Zinc Yes 1{tbl} Take 1 [facility] ers Acetate, 8-11 tablet by ity of Oral, 25 mg 00:00: mouth [place] (zinc) Cap 00 daily. [facility] Zinc Yes 1{tbl} Take 1 [facility] ers Acetate, 8-11 tablet by ity of Oral, 25 mg 00:00: mouth [place] (zinc) Cap 00 daily. [facility] Zinc Yes 1{tbl} Take 1 [facility] ers Acetate, 8-11 tablet by ity of Oral, 25 mg 00:00: mouth [place] (zinc) Cap 00 daily. [facility] Zinc Yes 1{tbl} Take 1 [facility] ers Acetate, 8-11 tablet by ity of Oral, 25 mg 00:00: mouth [place] (zinc) Cap 00 daily. [facility] Zinc Yes 1{tbl} Take 1 [facility] ers Acetate, 8-11 tablet by ity of Oral, 25 mg 00:00: mouth [place] (zinc) Cap 00 daily. Medical Branch Zinc 2019-0 Yes 1{tbl} Take 1 [facility] ers Acetate, 8-11 tablet by ity of Oral, 25 mg 00:00: mouth [place] (zinc) Cap 00 daily. Medical Branch Zinc 2019- Yes 1{tbl} Take 1 [facility] ers Acetate, 8-11 tablet by ity of Oral, 25 mg 00:00: mouth [place] (zinc) Cap 00 daily. Medical Branch Zinc 2018- Yes 1{tbl} Take 1 [facility] ers Acetate, 8-11 tablet by ity of Oral, 25 mg 00:00: mouth [place] (zinc) Cap 00 daily. Medical Branch Zinc 2018- Yes 1{tbl} Take 1 [facility] Acetate, 8-11 tablet by ity of Oral, 25 mg 00:00: mouth [place] (zinc) Cap 00 daily. Medical Branch Zinc 2018- Yes 1{tbl} Take 1 [facility] Acetate, 8-11 tablet by ity of Oral, 25 mg 00:00: mouth [place] (zinc) Cap 00 daily. Medical Branch Zinc 2018- Yes 1{tbl} Take 1 [facility] ers Acetate, 8-11 tablet by ity of Oral, 25 mg 00:00: mouth [place] (zinc) Cap 00 daily. Medical Branch Zinc 2018- Yes 1{tbl} Take 1 [facility] ers Acetate, 8-11 tablet by ity of Oral, 25 mg 00:00: mouth [place] (zinc) Cap 00 daily. Medical Branch Zinc 2019- Yes 1{tbl} Take 1 [facility] Acetate, 8-11 tablet by ity of Oral, 25 mg 00:00: mouth [place] (zinc) Cap 00 daily. Medical Branch Zinc 2019- Yes 1{tbl} Take 1 [facility] Acetate, 8-11 tablet by ity of Oral, 25 mg 00:00: mouth [place] (zinc) Cap 00 daily. Medical Branch Zinc 2018- Yes 1{tbl} Take 1 [facility] Acetate, 8-11 tablet by ity of Oral, 25 mg 00:00: mouth [place] (zinc) Cap 00 daily. Medical Branch Zinc 2019- Yes 1{tbl} Take 1 [facility] Acetate, 8-11 tablet by ity of Oral, 25 mg 00:00: mouth [place] (zinc) Cap 00 daily. Medical Branch Zinc 2018- Yes 1{tbl} Take 1 [facility] Acetate, 8-11 tablet by ity of Oral, 25 mg 00:00: mouth [place] (zinc) Cap 00 daily. Medical Branch Zinc 2018- Yes 1{tbl} Take 1 [facility] Acetate, 8-11 tablet by ity of Oral, 25 mg 00:00: mouth [place] (zinc) Cap 00 daily. Medical Branch Zinc 2018- Yes 1{tbl} Take 1 [facility] Acetate, 8-11 tablet by ity of Oral, 25 mg 00:00: mouth [place] (zinc) Cap 00 daily. Medical Branch Zinc 2018- Yes 1{tbl} Take 1 [facility] Acetate, 8-11 tablet by ity of Oral, 25 mg 00:00: mouth [place] (zinc) Cap 00 daily. Medical Branch Zinc 2018- Yes 1{tbl} Take 1 [facility] Acetate, 8-11 tablet by ity of Oral, 25 mg 00:00: mouth [place] (zinc) Cap 00 daily. Medical Branch Zinc 2018- Yes 1{tbl} Take 1 [facility] Acetate, 8-11 tablet by ity of Oral, 25 mg 00:00: mouth [place] (zinc) Cap 00 daily. Medical Branch Zinc 2019-0 Yes 1{tbl} Take 1 [facility] ers Acetate, 8-11 tablet by ity of Oral, 25 mg 00:00: mouth [place] (zinc) Cap 00 daily. Medical Branch Zinc 2019- Yes [id number] 1{tbl} Take 1 [facility] ers Acetate, 8-11 tablet by ity of Oral, 25 mg 00:00: mouth [place] (zinc) Cap 00 daily. Medical Branch Zinc 2018-0 2020- No [id number] 1{tbl} Take 1 [facility] vers Acetate, 8-11 05-08 tablet by ity o f Oral, 25 mg 00:00: 00:00 [place] (z[place] Cap 00 :00 daily. Medical Branch Zinc 2018-0 2020- No [id number] 1{tbl} Take 1 [facility] vers Acetate, 8-11 05-08 tablet by ity o f Oral, 25 mg 00:00: 00:00 [place] ([place] Cap 00 :00 daily. Medical Branch pregabalin 2018-0 Yes [id number] 150mg Take 1 [facility] (LYRICA) 8-05 capsule by ity o f 150 mg 00:00: mouth 2 [place] capsule 00 (two) Medical times Branch daily. pregabalin 2018- Yes [id number] 150mg Take 1 [facility] (LYRICA) 8-05 capsule by ity o f 150 mg 00:00: mouth 2 [place] capsule 00 (two) Medical times Branch daily. pregabalin 2018-0 Yes [id number] 150mg Take 1 [facility] (LYRICA) 8-05 capsule by ity o f 150 mg 00:00: mouth 2 [place] capsule 00 (two) Medical times Branch daily. pregabalin 2018- Yes [id number] 150mg Take 1 [facility] (LYRICA) 8-05 capsule by ity o f 150 mg 00:00: mouth 2 [place] capsule 00 (two) Medical times Branch daily. pregabalin 2018- Yes [id number] 150mg Take 1 [facility] (LYRICA) 8-05 capsule by ity o f 150 mg 00:00: mouth 2 [place] capsule 00 (two) Medical times Branch daily. pregabalin 2018-0 Yes [id number] 150mg Take 1 [facility] (LYRICA) 8-05 capsule by ity o f 150 mg 00:00: mouth 2 [place] capsule 00 (two) Medical times Branch daily. pregabalin 2018-0 Yes [id number] 150mg Take 1 [facility] (LYRICA) 8-05 capsule by ity o f 150 mg 00:00: mouth 2 [place] capsule 00 (two) Medical times Branch daily. pregabalin 2018-0 Yes [id number] 150mg Take 1 [facility] (LYRICA) 8-05 capsule by ity o f 150 mg 00:00: mouth 2 [place] capsule 00 (two) Medical times Branch daily. pregabalin 2018-0 Yes [id number] 150mg Take 1 [facility] (LYRICA) 8-05 capsule by ity o f 150 mg 00:00: mouth 2 [place] capsule 00 (two) Medical times Branch daily. pregabalin 2018-0 Yes [id number] 150mg Take 1 [facility] (LYRICA) 8-05 capsule by ity o f 150 mg 00:00: mouth 2 [place] capsule 00 (two) Medical times Branch daily. pregabalin 2018- Yes [id number] 150mg Take 1 [facility] (LYRICA) 8-05 capsule by ity o f 150 mg 00:00: mouth 2 [place] capsule 00 (two) Medical times Branch daily. pregabalin 2018- Yes [id number] 150mg Take 1 [facility] (LYRICA) 8-05 capsule by ity o f 150 mg 00:00: mouth 2 [place] capsule 00 (two) Medical times Branch daily. pregabalin 2018- Yes [id number] 150mg Take 1 [facility] (LYRICA) 8-05 capsule by ity o f 150 mg 00:00: mouth 2 [place] capsule 00 (two) Medical times Branch daily. dextran 2019- No 1[drp] Place 1 [facility] ers 70-hypromel 8-04 08-04 Drop in ity of lose 22:38: 00:00 both eyes [place] (ARTIFICIAL 22 :00 as needed. Me dical TEARS,DEXT7 Branch 0-HYPRO,) 0.1-0.3 % dextran 2019- No 1[drp] Place 1 [facility] 70-hypromel 8-04 08-04 Drop in ity of lose 22:38: 00:00 both eyes [place] (ARTIFICIAL 22 :00 as needed. Me dical TEARS,DEXT7 Branch 0-HYPRO,) 0.1-0.3 % donepezil 5 Yes [id number] 5mg Take 1 [facility] mg tablet 8-04 tablet by ity o f 00:00: mouth daily. Medical Branch vitamin B-1 Yes [id number] Take by [facility] 250 mg 8-04 mouth ity of tablet 00:00: daily. Medical Branch donepezil 5 Yes [id number] 5mg Take 1 [facility] mg tablet 8-04 tablet by ity o f 00:00: mouth daily. Medical Branch vitamin B-1 Yes [id number] Take by [facility] 250 mg 8-04 mouth ity of tablet 00:00: daily. Medical Branch donepezil 5 Yes [id number] 5mg Take 1 [facility] mg tablet 8-04 tablet by ity o f 00:00: mouth [place] 00 daily. Medical Branch vitamin B-1 2019-0 Yes [id number] Take by [facility] 250 mg 8-04 mouth ity of tablet 00:00: daily. Medical Branch donepezil 5 2019-0 Yes [id number] 5mg Take 1 [facility] mg tablet 8-04 tablet by ity o f 00:00: mouth [place] 00 daily. Medical Branch vitamin B-1 2018- Yes [id number] Take by [facility] 250 mg 8-04 mouth ity of tablet 00:00: daily. Medical Branch donepezil 5 2018-0 Yes [id number] 5mg Take 1 [facility] mg tablet 8-04 tablet by ity o f 00:00: mouth 00 daily. Medical Branch vitamin B-1 2018- Yes [id number] Take by [facility] 250 mg 8-04 mouth ity of tablet 00:00: daily. Medical Branch donepezil 5 2018- Yes [id number] 5mg Take 1 [facility] mg tablet 8-04 tablet by ity o f 00:00: mouth daily. Medical Branch vitamin B-1 2018- Yes [id number] Take by [facility] 250 mg 8-04 mouth ity of tablet 00:00: daily. Medical Branch donepezil 5 2018- Yes [id number] 5mg Take 1 [facility] mg tablet 8-04 tablet by ity o f 00:00: mouth daily. Medical Branch vitamin B-1 2019- Yes [id number] Take by [facility] 250 mg 8-04 mouth ity of tablet 00:00: daily. Medical Branch donepezil 5 2019-0 Yes [id number] 5mg Take 1 [facility] mg tablet 8-04 tablet by ity o f 00:00: mouth 00 daily. Medical Branch vitamin B-1 2019-0 Yes [id number] Take by [facility] 250 mg 8-04 mouth ity of tablet 00:00: daily. Medical Branch donepezil 5 2019-0 Yes [id number] 5mg Take 1 [facility] mg tablet 8-04 tablet by ity o f 00:00: mouth [place] 00 daily. Medical Branch vitamin B-1 2019- Yes [id number] Take by [facility] 250 mg 8-04 mouth ity of tablet 00:00: daily. Medical Branch carvedilol 2019-0 Yes 6.25mg Take 1 [facility] 6.25 mg 8-04 tablet by ity of tablet 00:00: mouth 2 (two) Medical times Branch daily with meals. tamsulosin 2019-0 Yes .4mg Take 1 [facility] 0.4 mg 24 8-04 capsule by ity of hr capsule 00:00: mouth 2 [place] (two) Medical times Branch daily. vitamin B-1 2018-0 Yes [id number] Take by [facility] 250 mg 8-04 mouth ity of tablet 00:00: daily. Medical Branch lisinopril 2019-0 Yes 10mg Take 1 [facility] 10 mg 8-04 tablet by ity of tablet 00:00: mouth 00 daily. Medical Branch carvedilol 2018-0 Yes 6.25mg Take 1 [facility] 6.25 mg 8-04 tablet by ity of tablet 00:00: mouth 2 (two) Medical times Branch daily with meals. tamsulosin 2018-0 Yes .4mg Take 1 [facility] 0.4 mg 24 8-04 capsule by ity of hr capsule 00:00: mouth 2 (two) Medical times Branch daily. vitamin B-1 2018- Yes [id number] Take by [facility] 250 mg 8-04 mouth ity of tablet 00:00: daily. Medical Branch lisinopril 2018-0 Yes 10mg Take 1 [facility] 10 mg 8-04 tablet by ity of tablet 00:00: mouth 00 daily. Medical Branch donepezil 5 2018-0 Yes [id number] 5mg Take 1 [facility] mg tablet 8-04 tablet by ity o f 00:00: mouth 00 daily. Medical Branch donepezil 5 2018-0 Yes [id number] 5mg Take 1 [facility] mg tablet 8-04 tablet by ity o f 00:00: mouth 00 daily. Medical Branch carvedilol 2019-0 Yes 6.25mg Take 1 [facility] 6.25 mg 8-04 tablet by ity of tablet 00:00: mouth 2 (two) Medical times Branch daily with meals. tamsulosin 2019-0 Yes .4mg Take 1 [facility] 0.4 mg 24 8-04 capsule by ity of hr capsule 00:00: mouth 2 (two) Medical times Branch daily. vitamin B-1 2019- Yes [id number] Take by [facility] 250 mg 8-04 mouth ity of tablet 00:00: daily. Medical Branch lisinopril 2019-0 Yes 10mg Take 1 [facility] 10 mg 8-04 tablet by ity of tablet 00:00: mouth 00 daily. Medical Branch donepezil 5 2018- Yes [id number] 5mg Take 1 [facility] mg tablet 8-04 tablet by ity o f 00:00: mouth 00 daily. Medical Branch carvedilol 2019-0 Yes 6.25mg Take 1 [facility] 6.25 mg 8-04 tablet by ity of tablet 00:00: mouth (two) Medical times Branch daily with meals. tamsulosin 2019-0 Yes .4mg Take 1 [facility] 0.4 mg 24 8-04 capsule by ity of hr capsule 00:00: mouth 2 (two) Medical times Branch daily. vitamin B-1 2018- Yes [id number] Take by [facility] 250 mg 8-04 mouth ity of tablet 00:00: daily. Medical Branch lisinopril 2018-0 Yes 10mg Take 1 [facility] 10 mg 8-04 tablet by ity of tablet 00:00: mouth 00 daily. Medical Branch donepezil 5 Yes [id number] 5mg Take 1 [facility] mg tablet 8-04 tablet by ity o f 00:00: mouth 00 daily. Medical Branch carvedilol 2018-0 Yes 6.25mg Take 1 [facility] 6.25 mg 8-04 tablet by ity of tablet 00:00: mouth (two) Medical times Branch daily with meals. tamsulosin 2019-0 Yes .4mg Take 1 [facility] 0.4 mg 24 8-04 capsule by ity of hr capsule 00:00: mouth 2 [place] (two) Medical times Branch daily. vitamin B-1 2018- Yes [id number] Take by [facility] 250 mg 8-04 mouth ity of tablet 00:00: daily. Medical Branch lisinopril 2019-0 Yes 10mg Take 1 [facility] 10 mg 8-04 tablet by ity of tablet 00:00: mouth 00 daily. Medical Branch donepezil 5 2018-0 Yes [id number] 5mg Take 1 [facility] mg tablet 8-04 tablet by ity o f 00:00: mouth 00 daily. Medical Branch carvedilol 2019-0 Yes 6.25mg Take 1 [facility] 6.25 mg 8-04 tablet by ity of tablet 00:00: mouth 2 (two) Medical times Branch daily with meals. tamsulosin 2019-0 Yes .4mg Take 1 [facility] 0.4 mg 24 8-04 capsule by [facility] of hr capsule 00:00: mouth 2 [place] (two) Medical times Branch daily. vitamin B-1 2018- Yes [id number] Take by [facility] 250 mg 8-04 mouth ity of tablet 00:00: daily. Medical Branch lisinopril 2018-0 Yes 10mg Take 1 [facility] 10 mg 8-04 tablet by ity of tablet 00:00: mouth 00 daily. Medical Branch donepezil 5 Yes [id number] 5mg Take 1 [facility] mg tablet 8-04 tablet by ity o f 00:00: mouth 00 daily. Medical Branch carvedilol 2018- Yes 6.25mg Take 1 [facility] 6.25 mg 8-04 tablet by ity of tablet 00:00: mouth (two) Medical times Branch daily with meals. tamsulosin 2018-0 Yes .4mg Take 1 [facility] 0.4 mg 24 8-04 capsule by [facility] of hr capsule 00:00: mouth 2 [place] (two) Medical times Branch daily. vitamin B-1 2018- Yes [id number] Take by [facility] 250 mg 8-04 mouth ity of tablet 00:00: daily. Medical Branch lisinopril 2018-0 Yes 10mg Take 1 [facility] 10 mg 8-04 tablet by ity of tablet 00:00: mouth 00 daily. Medical Branch donepezil 5 2018- Yes [id number] 5mg Take 1 [facility] mg tablet 8-04 tablet by ity o f 00:00: mouth 00 daily. Medical Branch carvedilol 2018- Yes 6.25mg Take 1 [facility] 6.25 mg 8-04 tablet by ity of tablet 00:00: mouth 2 (two) Medical times Branch daily with meals. tamsulosin 2019-0 Yes .4mg Take 1 [facility] 0.4 mg 24 8-04 capsule by ity of hr capsule 00:00: mouth 2 (two) Medical times Branch daily. vitamin B-1 2018-0 Yes [id number] Take by [facility] 250 mg 8-04 mouth ity of tablet 00:00: daily. Medical Branch lisinopril 2019-0 Yes 10mg Take 1 [facility] 10 mg 8-04 tablet by ity of tablet 00:00: mouth 00 daily. Medical Branch donepezil 5 2018-0 Yes [id number] 5mg Take 1 [facility] mg tablet 8-04 tablet by ity o f 00:00: mouth 00 daily. Medical Branch carvedilol 2018-0 Yes 6.25mg Take 1 [facility] 6.25 mg 8-04 tablet by ity of tablet 00:00: mouth (two) Medical times Branch daily with meals. tamsulosin 2019-0 Yes .4mg Take 1 [facility] 0.4 mg 24 8-04 capsule by ity of hr capsule 00:00: mouth 2 (two) Medical times Branch daily. vitamin B-1 2018-0 Yes [id number] Take by [facility] 250 mg 8-04 mouth ity of tablet 00:00: daily. Medical Branch lisinopril 2019-0 Yes 10mg Take 1 [facility] 10 mg 8-04 tablet by ity of tablet 00:00: mouth daily. Medical Branch donepezil 5 2018- Yes [id number] 5mg Take 1 [facility] mg tablet 8-04 tablet by ity o f 00:00: mouth daily. Medical Branch carvedilol 2019-0 Yes 6.25mg Take 1 [facility] 6.25 mg 8-04 tablet by ity of tablet 00:00: mouth (two) Medical times Branch daily with meals. tamsulosin 2019-0 Yes .4mg Take 1 [facility] 0.4 mg 24 8-04 capsule by [facility] of hr capsule 00:00: mouth 2 [place] (two) Medical times Branch daily. vitamin B-1 2018-0 Yes [id number] Take by [facility] 250 mg 8-04 mouth ity of tablet 00:00: daily. Medical Branch lisinopril 2019-0 Yes 10mg Take 1 [facility] 10 mg 8-04 tablet by ity of tablet 00:00: mouth [place] 00 daily. Medical Branch donepezil 5 Yes [id number] 5mg Take 1 [facility] mg tablet 8-04 tablet by ity o f 00:00: mouth [place] 00 daily. Medical Branch carvedilol 2018-0 Yes 6.25mg Take 1 [facility] 6.25 mg 8-04 tablet by ity of tablet 00:00: mouth 2 (two) Medical times Branch daily with meals. tamsulosin 2019-0 Yes .4mg Take 1 [facility] 0.4 mg 24 8-04 capsule by [facility] of hr capsule 00:00: mouth 2 [place] 00 (two) Medical times Branch daily. vitamin B-1 Yes [id number] Take by [facility] 250 mg 8-04 mouth ity of tablet 00:00: daily. Medical Branch lisinopril 2018- Yes 10mg Take 1 [facility] 10 mg 8-04 tablet by ity of tablet 00:00: mouth 00 daily. Medical Branch donepezil 5 Yes [id number] 5mg Take 1 [facility] mg tablet 8-04 tablet by ity o f 00:00: mouth [place] 00 daily. Medical Branch carvedilol 2018- Yes 6.25mg Take 1 [facility] 6.25 mg 8-04 tablet by ity of tablet 00:00: mouth (two) Medical times Branch daily with meals. tamsulosin 2019-0 Yes .4mg Take 1 [facility] 0.4 mg 24 8-04 capsule by [facility] of hr capsule 00:00: mouth 2 [place] (two) [facility] times [facility] daily. vitamin B-1 2018- Yes [id number] Take by [facility] 250 mg 8-04 mouth [facility] of tablet 00:00: daily. [facility] lisinopril 2019-0 Yes 10mg Take 1 [facility] rs 10 mg 8-04 tablet by [facility] of tablet 00:00: mouth [place] 00 daily. [facility] donepezil 5 Yes [id number] 5mg Take 1 [facility] mg tablet 8-04 tablet by [facility] o f 00:00: mouth [place] 00 daily. [facility] carvedilol 2018- Yes 6.25mg Take 1 [facility] vers 6.25 mg 8-04 tablet by [facility] of tablet 00:00: mouth (two) [facility] times [facility] daily with meals. tamsulosin 2019-0 Yes .4mg Take 1 [facility] 0.4 mg 24 8-04 capsule by [facility] hr capsule 00:00: mouth [place] (two) [facility] daily. vitamin B-1 2018-0 Yes [id number] Take by [facility] 250 mg 8-04 mouth [facility] of tablet 00:00: daily. [facility] lisinopril 2019-0 Yes 10mg Take 1 [facility] 10 mg 8-04 tablet by [facility] of tablet 00:00: mouth 00 daily. [facility] donepezil 5 2018- Yes [id number] 5mg Take 1 [facility] mg tablet 8-04 tablet by [facility] o f 00:00: mouth 00 daily. [facility] carvedilol 2018- Yes 6.25mg Take 1 [facility] vers 6.25 mg 8-04 tablet by [facility] of tablet 00:00: mouth (two) [facility] times [facility] daily with meals. tamsulosin 2019-0 Yes .4mg Take 1 [facility] 0.4 mg 24 8-04 capsule by [facility] hr capsule 00:00: mouth 2 s (two) [facility] times [facility] daily. vitamin B-1 2018- Yes [id number] Take by [facility] 250 mg 8-04 mouth [facility] of tablet 00:00: daily. [facility] lisinopril 2019-0 Yes 10mg Take 1 [facility] 10 mg 8-04 tablet by [facility] of tablet 00:00: mouth 00 daily. [facility] donepezil 5 2018- Yes [id number] 5mg Take 1 [facility] mg tablet 8-04 tablet by [facility] o f 00:00: mouth 00 daily. [facility] carvedilol 2018-0 Yes 6.25mg Take 1 [facility] vers 6.25 mg 8-04 tablet by [facility] of tablet 00:00: mouth (two) [facility] times [facility] daily with meals. tamsulosin 2019-0 Yes .4mg Take 1 [facility] 0.4 mg 24 8-04 capsule by [facility] capsule 00:00: mouth [place] (two[place] [facility] daily. vitamin B-1 2018-0 Yes [id number] Take by [facility] 250 mg 8-04 mouth [facility] of tablet 00:00: daily. [facility] lisinopril 2018- Yes 10mg Take 1 [facility] 10 mg 8-04 tablet by [facility] of tablet 00:00: mouth daily. [facility] donepezil 5 Yes [id number] 5mg Take 1 [facility] mg tablet 8-04 tablet by [facility] o f 00:00: mouth daily. [facility] carvedilol 2018- Yes 6.25mg Take 1 [facility] vers 6.25 mg 8-04 tablet by [facility] of tablet 00:00: mouth 2 (two) [facility] times [facility] daily with meals. vitamin B-1 Yes [id number] Take by [facility] 250 mg 8-04 mouth [facility] of tablet 00:00: daily. [facility] donepezil 5 Yes [id number] 5mg Take 1 [facility] mg tablet 8-04 tablet by [facility] o f 00:00: mouth daily. [facility] carvedilol 2018- Yes 6.25mg Take 1 [facility] vers 6.25 mg 8-04 tablet by [facility] of tablet 00:00: mouth 2 (two) [facility] times [facility] daily with meals. vitamin B-1 Yes [id number] Take by [facility] 250 mg 8-04 mouth [facility] of tablet 00:00: daily. [facility] donepezil 5 2018- Yes [id number] 5mg Take 1 [facility] mg tablet 8-04 tablet by [facility] o f 00:00: mouth daily. [facility] carvedilol 2018- Yes 6.25mg Take 1 [facility] vers 6.25 mg 8-04 tablet by [facility] of tablet 00:00: mouth 2 (two) [facility] times [facility] daily with meals. vitamin B-1 2018- Yes [id number] Take by [facility] 250 mg 8-04 mouth [facility] of tablet 00:00: daily. [facility] donepezil 5 2018- Yes [id number] 5mg Take 1 [facility] mg tablet 8-04 tablet by [facility] o f 00:00: mouth daily. [facility] vitamin B-1 2018- Yes [id number] Take by [facility] 250 mg 8-04 mouth [facility] of tablet 00:00: daily. [place] 00 [facility] donepezil 5 2019-0 Yes [id number] 5mg Take 1 [facility] mg tablet 8-04 tablet by [facility] o f 00:00: mouth [place] 00 daily. [facility] vitamin B-1 2019-0 Yes [id number] Take by [facility] 250 mg 8-04 mouth [facility] of tablet 00:00: daily. 00 [facility] donepezil 5 2019-0 Yes [id number] 5mg Take 1 [facility] mg tablet 8-04 tablet by [facility] o f 00:00: mouth [place] 00 daily. [facility] vitamin B-1 2018-0 Yes [id number] Take by [facility] 250 mg 8-04 mouth [facility] of tablet 00:00: daily. 00 [facility] donepezil 5 2018-0 2020- No [id number] 5mg Take 1 [facility] mg tablet 8-04 05-08 tablet by [facility] of 00:00: 00:00 mouth [place] 00 :00 daily. [facility] vitamin B-1 2018-0 2020- No [id number] Take by [facility] 250 mg 8-04 05-08 mouth [facility] of tablet 00:00: 00:00 daily. [place] 00 :00 Medical Branch donepezil 5 2018-0 2020- No [id number] 5mg Take 1 [facility] mg tablet 8-04 05-08 tablet by [facility] of 00:00: 00:00 mouth [place] 00 :00 daily. [facility] vitamin B-1 2018-0 2020- No [id number] Take by [facility] 250 mg 8-04 05-08 mouth [facility] of tablet 00:00: 00:00 daily. [place] 00 :00 [facility] carvedilol 2019-0 2020- No 6.25mg Take 1 [facility] darshana 6.25 mg 8-04 03-09 tablet by [facility] of tablet 00:00: 00:00 mouth 2 [place] 00 :00 (two) [facility] times [facility] daily with meals. DONEPEZIL 5 2018-0 Yes [id number] TAKE ONE [facility] mg tablet 8-02 TABLET BY ity o f 00:00: MOUTH [place] 00 DAILY [facility] DONEPEZIL 5 2019-0 Yes [id number] TAKE ONE [facility] mg tablet 8-02 TABLET BY ity o f 00:00: MOUTH [place] 00 DAILY [facility] DONEPEZIL 5 2019-0 Yes [id number] TAKE ONE [facility] mg tablet 8-02 TABLET BY ity o f 00:00: MOUTH DAILY [facility] DONEPEZIL 5 2019-0 Yes [id number] TAKE ONE [facility] mg tablet 8-02 TABLET BY ity o f 00:00: MOUTH DAILY [facility] DONEPEZIL 5 2019-0 Yes [id number] TAKE ONE [facility] mg tablet 8-02 TABLET BY ity o f 00:00: MOUTH DAILY [facility] DONEPEZIL 5 2019-0 Yes [id number] TAKE ONE [facility] mg tablet 8-02 TABLET BY ity o f 00:00: MOUTH DAILY [facility] DONEPEZIL 5 2019-0 Yes [id number] TAKE ONE [facility] mg tablet 8-02 TABLET BY ity o f 00:00: MOUTH DAILY [facility] DONEPEZIL 5 2019-0 Yes [id number] TAKE ONE [facility] mg tablet 8-02 TABLET BY ity o f 00:00: MOUTH DAILY [facility] DONEPEZIL 5 2019-0 Yes [id number] TAKE ONE [facility] mg tablet 8-02 TABLET BY ity o f 00:00: MOUTH DAILY [facility] DONEPEZIL 5 2019-0 Yes [id number] TAKE ONE [facility] mg tablet 8-02 TABLET BY ity o f 00:00: MOUTH DAILY [facility] DONEPEZIL 5 2019-0 Yes [id number] TAKE ONE [facility] mg tablet 8-02 TABLET BY ity o f 00:00: MOUTH DAILY [facility] DONEPEZIL 5 2019-0 Yes [id number] TAKE ONE [facility] mg tablet 8-02 TABLET BY ity o f 00:00: MOUTH DAILY [facility] DONEPEZIL 5 2019-0 Yes [id number] TAKE ONE [facility] mg tablet 8-02 TABLET BY ity o f 00:00: MOUTH DAILY [facility] DONEPEZIL 5 2019-0 Yes [id number] TAKE ONE [facility] mg tablet 8-02 TABLET BY ity o f 00:00: MOUTH DAILY [facility] dextran 2019-0 Yes 1[drp] Place 1 [facility] rs 70-hypromel 7-30 Drop in ity o f lose 17:27: both eyes [place] (ARTIFICIAL 04 as needed. Me dical TEARS,DEXT7 Branch 0-HYPRO,) 0.1-0.3 % dextran 2019-0 Yes 1[drp] Place 1 [facility] rs 70-hypromel 7-30 Drop in ity o f lose 17:27: both eyes [place] (ARTIFICIAL 04 as needed. Me dical TEARS,DEXT7 Branch 0-HYPRO,) 0.1-0.3 % dextran Yes 1[drp] Place 1 [facility] rs 70-hypromel 7-30 Drop in ity o f lose 17:27: both eyes [place] (ARTIFICIAL 04 as needed. Me dical TEARS,DEXT7 Branch 0-HYPRO,) 0.1-0.3 % dextran Yes 1[drp] Place 1 [facility] rs 70-hypromel 7-30 Drop in ity o f lose 17:27: both eyes [place] (ARTIFICIAL 04 as needed. Me dical TEARS,DEXT7 Branch 0-HYPRO,) 0.1-0.3 % traZODone Yes [id number] 200mg Take 2 [facility] 100 mg 7-30 tablets by [facility] of tablet 00:00: mouth at [place] [address] bedtime. Medical Be sure to Branch stop caffeine intake after noon. traZODone Yes [id number] 200mg Take 2 [facility] 100 mg 7-30 tablets by [facility] of tablet 00:00: mouth at [place] [address] bedtime. Medical Be sure to Branch stop caffeine intake after noon. traZODone Yes [id number] 200mg Take 2 [facility] 100 mg 7-30 tablets by [facility] of tablet 00:00: mouth at [place] [address] bedtime. Medical Be sure to Branch stop caffeine intake after noon. traZODone 2018-0 Yes [id number] 200mg Take 2 [facility] 100 mg 7-30 tablets by [facility] of tablet 00:00: mouth at [place] [address] bedtime. Medical Be sure to Branch stop caffeine intake after noon. traZODone 2018- Yes [id number] 200mg Take 2 [facility] 100 mg 7-30 tablets by [facility] of tablet 00:00: mouth at [place] 00 bedtime. Medical Be sure to Branch stop caffeine intake after noon. traZODone 2018-0 Yes [id number] 200mg Take 2 [facility] 100 mg 7-30 tablets by [facility] of tablet 00:00: mouth at [place] [address] bedtime. Medical Be sure to Branch stop caffeine intake after noon. traZODone 2018-0 Yes [id number] 200mg Take 2 [facility] 100 mg 7-30 tablets by [facility] of tablet 00:00: mouth at [place] [address] bedtime. Medical Be sure to Branch stop caffeine intake after noon. traZODone 2019-0 Yes [id number] 200mg Take 2 [facility] 100 mg 7-30 tablets by [facility]y of tablet 00:00: mouth at [place] [address] bedtime. Medical Be sure to Branch stop caffeine intake after noon. traZODone 2018-0 Yes [id number] 200mg Take 2 [facility] 100 mg 7-30 tablets by [facility] of tablet 00:00: mouth at [place] [address] bedtime. Medical Be sure to Branch stop caffeine intake after noon. traZODone 2019-0 Yes [id number] 200mg Take 2 [facility] 100 mg 7-30 tablets by it[facility] of tablet 00:00: mouth at [place] [address] bedtime. Medical Be sure to Branch stop caffeine intake after noon. traZODone 2018-0 Yes [id number] 200mg Take 2 [facility] 100 mg 7-30 tablets by ity of tablet 00:00: mouth at [place] [address] bedtime. Medical Be sure to Branch stop caffeine intake after noon. traZODone 2018-0 Yes [id number] 200mg Take 2 [facility] 100 mg 7-30 tablets by [facility] of tablet 00:00: mouth at [place] [address] bedtime. Medical Be sure to Branch stop caffeine intake after noon. traZODone 2018-0 Yes [id number] 200mg Take 2 [facility] 100 mg 7-30 tablets by [facility] of tablet 00:00: mouth at [place] [address] bedtime. Medical Be sure to Branch stop caffeine intake after noon. traZODone 2018-0 Yes [id number] 200mg Take 2 [facility] 100 mg 7-30 tablets by [facility]y of tablet 00:00: mouth at [place] [address] bedtime. Medical Be sure to Branch stop caffeine intake after noon. traZODone 2019-0 Yes [id number] 200mg Take 2 [facility] 100 mg 7-30 tablets by [facility] of tablet 00:00: mouth at [place] [address] bedtime. Medical Be sure to Branch stop caffeine intake after noon. traZODone 2019-0 Yes [id number] 200mg Take 2 [facility] 100 mg 7-30 tablets by ity of tablet 00:00: mouth at [place] [address] bedtime. Medical Be sure to Branch stop caffeine intake after noon. traZODone 2018-0 Yes [id number] 200mg Take 2 [facility] 100 mg 7-30 tablets by ity of tablet 00:00: mouth at [place] [address] bedtime. Medical Be sure to Branch stop caffeine intake after noon. traZODone 2019-0 Yes [id number] 200mg Take 2 [facility] 100 mg 7-30 tablets by ity of tablet 00:00: mouth at [place] [address] bedtime. Medical Be sure to Branch stop caffeine intake after noon. traZODone 2019-0 Yes [id number] 200mg Take 2 [facility] 100 mg 7-30 tablets by ity of tablet 00:00: mouth at [place] [address] bedtime. Medical Be sure to Branch stop caffeine intake after noon. traZODone 2019-0 Yes [id number] 200mg Take 2 [facility] 100 mg 7-30 tablets by [facility] of tablet 00:00: mouth at [place] [address] bedtime. Medical Be sure to Branch stop caffeine intake after noon. traZODone 2019-0 Yes [id number] 200mg Take 2 [facility] 100 mg 7-30 tablets by ity of tablet 00:00: mouth at [place] [address] bedtime. Medical Be sure to Branch stop caffeine intake after noon. traZODone 2019-0 Yes [id number] 200mg Take 2 [facility] 100 mg 7-30 tablets by [facility]y of tablet 00:00: mouth at [place] [address] bedtime. Medical Be sure to Branch stop caffeine intake after noon. traZODone 2019-0 Yes [id number] 200mg Take 2 [facility] 100 mg 7-30 tablets by [facility] of tablet 00:00: mouth at [place] [address] bedtime. Medical Be sure to Branch stop caffeine intake after noon. traZODone 2019-0 Yes [id number] 200mg Take 2 [facility] 100 mg 7-30 tablets by [facility] of tablet 00:00: mouth at [place] [address] bedtime. Medical Be sure to Branch stop caffeine intake after noon. traZODone 2019-0 Yes [id number] 200mg Take 2 [facility] 100 mg 7-30 tablets by [facility] of tablet 00:00: mouth at [place] [address] bedtime. Medical Be sure to Branch stop caffeine intake after noon. traZODone 2019-0 Yes [id number] 200mg Take 2 [facility] 100 mg 7-30 tablets by [facility] of tablet 00:00: mouth at [place] [address] bedtime. Medical Be sure to Branch stop caffeine intake after noon. traZODone 2019-0 Yes [id number] 200mg Take 2 [facility] 100 mg 7-30 tablets by [facility] of tablet 00:00: mouth at [place] [address] bedtime. Medical Be sure to Branch stop caffeine intake after noon. traZODone 2018-0 2020- No [id number] 200mg Take 2 [facility] 100 mg 7-30 04-10 tablets by [facility] of tablet 00:00: 00:00 mouth at [place] 00 :00 bedtime. Medical Be sure to Branch stop caffeine intake after noon. traZODone 2018-0 2020- No [id number] 200mg Take 2 [facility] 100 mg 7-30 04-10 tablets by [facility] of tablet 00:00: 00:00 mouth at [place] 00 :00 bedtime. Medical Be sure to Branch stop caffeine intake after noon. QUEtiapine 2018-0 Yes [id number] 25mg Take 1 [facility] 25 mg 7-10 tablet by [facility] of tablet 00:00: mouth at [place] [address] bedtime. Medical Branch QUEtiapine 2018-0 Yes [id number] 25mg Take 1 [facility] 25 mg 7-10 tablet by [facility] of tablet 00:00: mouth at [place] [address] bedtime. Medical Branch QUEtiapine 0 Yes [id number] 25mg Take 1 [facility] 25 mg 7-10 tablet by [facility] of tablet 00:00: mouth at [place] [address] bedtime. Medical Branch QUEtiapine 2018-0 Yes [id number] 25mg Take 1 [facility] 25 mg 7-10 tablet by [facility] of tablet 00:00: mouth at [place] [address] bedtime. Medical Branch QUEtiapine 2018-0 Yes [id number] 25mg Take 1 [facility] 25 mg 7-10 tablet by [facility] of tablet 00:00: mouth at [place] [address] bedtime. Medical Branch QUEtiapine 2019-0 Yes [id number] 25mg Take 1 [facility] 25 mg 7-10 tablet by [facility] of tablet 00:00: mouth at [place] [address] bedtime. Medical Branch QUEtiapine 2019-0 Yes [id number] 25mg Take 1 [facility] 25 mg 7-10 tablet by [facility] of tablet 00:00: mouth at [place] [address] bedtime. Medical Branch QUEtiapine 2018-0 Yes [id number] 25mg Take 1 [facility] 25 mg 7-10 tablet by [facility] of tablet 00:00: mouth at [place] [address] bedtime. Medical Branch QUEtiapine 2019-0 Yes [id number] 25mg Take 1 [facility] 25 mg 7-10 tablet by [facility] of tablet 00:00: mouth at [place] [address] bedtime. Medical [facility] QUEtiapine 2019-0 Yes [id number] 25mg Take 1 [facility] 25 mg 7-10 tablet by [facility] of tablet 00:00: mouth at [place] [address] bedtime. Medical Branch QUEtiapine 2019-0 Yes [id number] 25mg Take 1 [facility] 25 mg 7-10 tablet by [facility]y of tablet 00:00: mouth at [place] [address] bedtime. Medical Branch QUEtiapine 2019-0 Yes [id number] 25mg Take 1 [facility] 25 mg 7-10 tablet by ity of tablet 00:00: mouth at [place] [address] bedtime. Medical [facility] QUEtiapine 2018-0 Yes [id number] 25mg Take 1 [facility] 25 mg 7-10 tablet by [facility]y of tablet 00:00: mouth at [place] [address] bedtime. Medical Branch QUEtiapine 2018-0 Yes [id number] 25mg Take 1 [facility] 25 mg 7-10 tablet by ity of tablet 00:00: mouth at [place] [address] bedtime. Medical Branch QUEtiapine 2018-0 Yes [id number] 25mg Take 1 [facility] 25 mg 7-10 tablet by ity of tablet 00:00: mouth at [place] [address] bedtime. Medical Branch QUEtiapine 2019-0 Yes [id number] 25mg Take 1 [facility] 25 mg 7-10 tablet by ity of tablet 00:00: mouth at [place] [address] bedtime. Medical Branch QUEtiapine 2019-0 Yes [id number] 25mg Take 1 [facility] 25 mg 7-10 tablet by [facility]y of tablet 00:00: mouth at [place] [address] bedtime. Medical Branch QUEtiapine 2019-0 Yes [id number] 25mg Take 1 [facility] 25 mg 7-10 tablet by [facility]y of tablet 00:00: mouth at [place] [address] bedtime. Medical [facility] QUEtiapine 2019-0 Yes [id number] 25mg Take 1 [facility] 25 mg 7-10 tablet by [facility]y of tablet 00:00: mouth at [place] [address] bedtime. Medical Branch QUEtiapine 2019-0 Yes [id number] 25mg Take 1 [facility] 25 mg 7-10 tablet by [facility]y of tablet 00:00: mouth at [place] [address] bedtime. Medical [facility] QUEtiapine 2019-0 Yes [id number] 25mg Take 1 [facility] 25 mg 7-10 tablet by [facility]y of tablet 00:00: mouth at [place] [address] bedtime. Medical Branch QUEtiapine 2019-0 Yes [id number] 25mg Take 1 [facility] 25 mg 7-10 tablet by [facility]y of tablet 00:00: mouth at [place] [address] bedtime. Medical Branch QUEtiapine 2019-0 Yes [id number] 25mg Take 1 [facility] 25 mg 7-10 tablet by [facility]y of tablet 00:00: mouth at [place] [address] bedtime. Medical Branch QUEtiapine 2019-0 Yes [id number] 25mg Take 1 [facility] 25 mg 7-10 tablet by [facility]y of tablet 00:00: mouth at [place] [address] bedtime. Medical Branch QUEtiapine 2019-0 Yes [id number] 25mg Take 1 [facility] 25 mg 7-10 tablet by [facility]y of tablet 00:00: mouth at [place] [address] bedtime. Medical [facility] QUEtiapine 2019-0 Yes [id number] 25mg Take 1 [facility] 25 mg 7-10 tablet by [facility]y of tablet 00:00: mouth at [place] [address] bedtime. Medical [facility] QUEtiapine 2019-0 Yes [id number] 25mg Take 1 [facility] 25 mg 7-10 tablet by [facility]y of tablet 00:00: mouth at [place] [address] bedtime. Medical Branch QUEtiapine 2019-0 Yes [id number] 25mg Take 1 [facility] 25 mg 7-10 tablet by [facility]y of tablet 00:00: mouth at [place] [address] bedtime. Medical Branch QUEtiapine 2019-0 Yes [id number] 25mg Take 1 [facility] 25 mg 7-10 tablet by [facility]y of tablet 00:00: mouth at [place] [address] bedtime. Medical Branch QUEtiapine 2019-0 Yes [id number] 25mg Take 1 [facility] 25 mg 7-10 tablet by [facility] of tablet 00:00: mouth at [place] [address] bedtime. Medical Branch QUEtiapine 2019-0 Yes [id number] 25mg Take 1 [facility] 25 mg 7-10 tablet by [facility] of tablet 00:00: mouth at [place] [address] bedtime. Medical [facility] QUEtiapine 2019-0 Yes [id number] 25mg Take 1 [facility] 25 mg 7-10 tablet by [facility] of tablet 00:00: mouth at [place] [address] bedtime. Medical Branch QUEtiapine 2019-0 Yes [id number] 25mg Take 1 [facility] 25 mg 7-10 tablet by [facility]y of tablet 00:00: mouth at [place] [address] bedtime. Medical Branch QUEtiapine 2019-0 Yes [id number] 25mg Take 1 [facility] 25 mg 7-10 tablet by [facility] of tablet 00:00: mouth at [place] 00 bedtime. Medical [facility] QUEtiapine 2019-0 Yes [id number] 25mg Take 1 [facility] 25 mg 7-10 tablet by [facility] of tablet 00:00: mouth at [place] 00 bedtime. Medical Branch QUEtiapine 2018-0 2020- No [id number] 25mg Take 1 [facility] 25 mg 7-10 05-08 tablet by [facility] of tablet 00:00: 00:00 mouth at [place] 00 :00 bedtime. Medical [facility] QUEtiapine 2018-0 2020- No [id number] 25mg Take 1 [facility] 25 mg 7-10 05-08 tablet by [facility] of tablet 00:00: 00:00 mouth at [place] 00 :00 bedtime. Medical Branch DULoxetine 2019-0 Yes [id number] Stop [facility] 40 mg CpDR 6-08 [id number] mirtazepin i ty of 00:00: e and [place] 00 start Medical mbalta Branch the next day for pain. Take every morning. DULoxetine 2019-0 Yes [id number] Stop [facility] 40 mg CpDR 6-08 [id number] mirtazepin i ty of 00:00: e and [place] 00 start Medical cymbalta Branch the next day for pain. Take every morning. DULoxetine 2019-0 Yes [id number] Stop [facility] 40 mg CpDR 6-08 [id number] mirtazepin i ty of 00:00: e and [place] 00 start Medical cymbalta Branch the next day for pain. Take every morning. DULoxetine 2019-0 Yes [id number] Stop [facility] 40 mg CpDR 6-08 [id number] mirtazepin i ty of 00:00: e and [place] 00 start Medical cymbalta Branch the next day for pain. Take every morning. DULoxetine 2019-0 Yes [id number] Stop [facility] 40 mg CpDR 6-08 [id number] mirtazepin i ty of 00:00: e and [place] 00 start Medical cymbalta Branch the next day for pain. Take every morning. DULoxetine 2019-0 Yes [id number] Stop [facility] 40 mg CpDR 6-08 [id number] mirtazepin i ty of 00:00: e and [place] 00 start Medical cymbalta Branch the next day for pain. Take every morning. DULoxetine 2019-0 Yes [id number] Stop [facility] 40 mg CpDR 6-08 [id number] mirtazepin i ty of 00:00: e and [place] 00 start Medical cymbalta Branch the next day for pain. Take every morning. DULoxetine 2019-0 Yes [id number] Stop [facility] 40 mg CpDR 6-08 [id number] mirtazepin i ty of 00:00: e and 00 start Medical cymbalta Branch the next day for pain. Take every morning. DULoxetine 2019-0 Yes [id number] Stop [facility] 40 mg CpDR 6-08 [id number] mirtazepin i ty of 00:00: e and [place] 00 start Medical cymbalta Branch the next day for pain. Take every morning. DULoxetine 2019-0 Yes [id number] Stop [facility] 40 mg CpDR 6-08 [id number] mirtazepin i ty of 00:00: e and [place] 00 start Medical cymbalta Branch the next day for pain. Take every morning. DULoxetine 2019-0 Yes [id number] Stop [facility] 40 mg CpDR 6-08 [id number] mirtazepin i ty of 00:00: e and [place] 00 start Medical cymbalta Branch the next day for pain. Take every morning. DULoxetine 2019-0 Yes [id number] Stop [facility] 40 mg CpDR 6-08 [id number] mirtazepin i ty of 00:00: e and [place] 00 start Medical cymbalta Branch the next day for pain. Take every morning. DULoxetine 2019-0 Yes [id number] Stop [facility] 40 mg CpDR 6-08 [id number] mirtazepin i ty of 00:00: e and [place] 00 start Medical cymbalta Branch the next day for pain. Take every morning. DULoxetine 2019-0 Yes [id number] Stop [facility] 40 mg CpDR 6-08 [id number] mirtazepin i ty of 00:00: e and [place] 00 start Medical cymbalta Branch the next day for pain. Take every morning. DULoxetine 2019-0 Yes [id number] Stop [facility] 40 mg CpDR 6-08 [id number] mirtazepin i ty of 00:00: e and [place] 00 start Medical cymbalta Branch the next day for pain. Take every morning. DULoxetine 2019-0 Yes [id number] Stop [facility] 40 mg CpDR 6-08 [id number] mirtazepin i ty of 00:00: e and 00 start Medical cymbalta Branch the next day for pain. Take every morning. DULoxetine 2019-0 Yes [id number] Stop [facility] 40 mg CpDR 6-08 [id number] mirtazepin i ty of 00:00: e and 00 start Medical cymbalta Branch the next day for pain. Take every morning. DULoxetine 2019-0 Yes [id number] Stop [facility] 40 mg CpDR 6-08 [id number] mirtazepin i ty of 00:00: e and start Medical cymbalta Branch the next day for pain. Take every morning. DULoxetine 2019-0 Yes [id number] Stop [facility] 40 mg CpDR 6-08 [id number] mirtazepin i ty of 00:00: e and start Medical cymbalta Branch the next day for pain. Take every morning. DULoxetine 2019-0 Yes [id number] Stop [facility] 40 mg CpDR 6-08 [id number] mirtazepin i ty of 00:00: e and start Medical cymbalta Branch the next day for pain. Take every morning. DULoxetine 2019-0 Yes [id number] Stop [facility] 40 mg CpDR 6-08 [id number] mirtazepin i ty of 00:00: e and start Medical cymbalta Branch the next day for pain. Take every morning. DULoxetine 2019-0 Yes [id number] Stop [facility] 40 mg CpDR 6-08 [id number] mirtazepin i ty of 00:00: e and 00 start Medical cymbalta Branch the next day for pain. Take every morning. DULoxetine 2019-0 Yes [id number] Stop [facility] 40 mg CpDR 6-08 [id number] mirtazepin i ty of 00:00: e and 00 start Medical cymbalta Branch the next day for pain. Take every morning. DULoxetine 2019-0 Yes [id number] Stop [facility] 40 mg CpDR 6-08 [id number] mirtazepin i ty of 00:00: e and 00 start Medical cymbalta Branch the next day for pain. Take every morning. DULoxetine 2019-0 Yes [id number] Stop [facility] 40 mg CpDR 6-08 [id number] mirtazepin i ty of 00:00: e and 00 start Medical cymbalta Branch the next day for pain. Take every morning. DULoxetine 2019-0 Yes [id number] Stop [facility] 40 mg CpDR 6-08 [id number] mirtazepin i ty of 00:00: e and [place] 00 start Medical cymbalta Branch the next day for pain. Take every morning. DULoxetine 2019-0 Yes [id number] Stop [facility] 40 mg CpDR 6-08 [id number] mirtazepin i ty of 00:00: e and 00 start Medical cymbalta Branch the next day for pain. Take every morning. DULoxetine 2019-0 Yes [id number] Stop [facility] 40 mg CpDR 6-08 [id number] mirtazepin i ty of 00:00: e and [place] 00 start Medical cymbalta Branch the next day for pain. Take every morning. DULoxetine 2019-0 Yes [id number] Stop [facility] 40 mg CpDR 6-08 [id number] mirtazepin i ty of 00:00: e and [place] 00 start Medical cymbalta Branch the next day for pain. Take every morning. DULoxetine 2019-0 Yes [id number] Stop [facility] 40 mg CpDR 6-08 [id number] mirtazepin i ty of 00:00: e and [place] 00 start Medical cymbalta Branch the next day for pain. Take every morning. DULoxetine 2019-0 Yes [id number] Stop [facility] 40 mg CpDR 6-08 [id number] mirtazepin i ty of 00:00: e and [place] 00 start Medical cymbalta Branch the next day for pain. Take every morning. DULoxetine 2019-0 Yes [id number] Stop [facility] 40 mg CpDR 6-08 [id number] mirtazepin i ty of 00:00: e and [place] 00 start Medical cymbalta Branch the next day for pain. Take every morning. DULoxetine 2019-0 Yes [id number] Stop [facility] 40 mg CpDR 6-08 [id number] mirtazepin i ty of 00:00: e and [place] 00 start Medical cymbalta Branch the next day for pain. Take every morning. DULoxetine 2019-0 Yes [id number] Stop [facility] 40 mg CpDR 6-08 [id number] mirtazepin i ty of 00:00: e and [place] 00 start Medical cymbalta Branch the next day for pain. Take every morning. DULoxetine 2019-0 Yes [id number] Stop [facility] 40 mg CpDR 6-08 [id number] mirtazepin i ty of 00:00: e and 00 start Medical [facility] Branch the next day for pain. Take every morning. DULoxetine 2020- No [id number] Stop [facility] 40 mg CpDR 03-30 [id number] mirtazepin ity of 00:00: 00:00 e and 00 :00 start Medical [facility] Branch the next day for pain. Take every morning. DULoxetine 2020- No [id number] Stop [facility] 40 mg CpDR 03-30 [id number] mirtazepin ity of 00:00: 00:00 e and 00 :00 start Medical [facility] Branch the next day for pain. Take every morning. DONEPEZIL 5 Yes [id number] TAKE ONE [facility] mg tablet 6-05 TABLET BY ity o f 00:00: MOUTH DAILY Medical Branch DONEPEZIL 5 Yes [id number] TAKE ONE [facility] mg tablet 6-05 TABLET BY ity o f 00:00: MOUTH DAILY Medical Branch DONEPEZIL 5 Yes [id number] TAKE ONE [facility] mg tablet 6-05 TABLET BY ity o f 00:00: MOUTH DAILY Medical Branch DONEPEZIL 5 2019- No [id number] TAKE ONE [facility] mg tablet 6-05 08-04 TABLET BY ity of 00:00: 00:00 MOUTH [place] 00 :00 DAILY Medical Branch DONEPEZIL 5 2018- 2019- No [id number] TAKE ONE [facility] mg tablet 6-05 08-04 TABLET BY ity of 00:00: 00:00 [facility] 00 :00 DAILY Medical Branch DONEPEZIL 5 2019- No [id number] TAKE ONE [facility] mg tablet 6-05 -29 TABLET BY ity of 00:00: 00:00 MOUTH [place] 00 :00 DAILY Medical Branch hydrALAZINE 2018- Yes 25mg Take 1 [facility] ers 25 mg 5-21 tablet by ity of tablet 00:00: mouth 3 [place] 00 (three) Medical times Branch daily. pregabalin 2018- Yes [id number] 150mg Take 1 [facility] (LYRICA) 5-21 capsule by ity o f 150 mg 00:00: mouth 2 [place] [facility] 00 (two) Medical times Branch daily. hydrALAZINE 2019-0 Yes 25mg Take 1 [facility] ers 25 mg 5-21 tablet by ity of tablet 00:00: mouth 3 [place] 00 (three) Medical times Branch daily. pregabalin 2019-0 Yes [id number] 150mg Take 1 [facility] (LYRICA) 5-21 capsule by ity o f 150 mg 00:00: mouth 2 [place] capsule 00 (two) Medical times Branch daily. pregabalin 2019-0 Yes [id number] 150mg Take 1 [facility] (LYRICA) 5-21 capsule by ity o f 150 mg 00:00: mouth 2 [place] capsule 00 (two) Medical times Branch daily. pregabalin 2019-0 Yes [id number] 150mg Take 1 [facility] (LYRICA) 5-21 capsule by ity o f 150 mg 00:00: mouth 2 [place] capsule 00 (two) Medical times Branch daily. pregabalin 2019-0 Yes [id number] 150mg Take 1 [facility] (LYRICA) 5-21 capsule by ity o f 150 mg 00:00: mouth 2 [place] capsule 00 (two) Medical times Branch daily. hydrALAZINE 2019-0 Yes 25mg Take 1 [facility] ers 25 mg 5-21 tablet by ity of tablet 00:00: mouth 3 [place] 00 (three) Medical times Branch daily. pregabalin 2019-0 Yes [id number] 150mg Take 1 [facility] (LYRICA) 5-21 capsule by ity o f 150 mg 00:00: mouth 2 [place] capsule 00 (two) Medical times Branch daily. hydrALAZINE 2019-0 Yes 25mg Take 1 [facility] ers 25 mg 5-21 tablet by ity of tablet 00:00: mouth 3 [place] 00 (three) Medical times Branch daily. pregabalin 2019-0 Yes [id number] 150mg Take 1 [facility] (LYRICA) 5-21 capsule by ity o f 150 mg 00:00: mouth 2 [place] capsule 00 (two) Medical times Branch daily. pregabalin 2019-0 2019- No [id number] 150mg Take 1 [facility] (LYRICA) 5-21 08-05 capsule by ity of 150 mg 00:00: 00:00 mouth 2 [place] capsule 00 :00 (two) Medical times Branch daily. hydrALAZINE 2019-0 2019- No 25mg Take 1 [facility] vers 25 mg 5-21 08-04 tablet by ity of tablet 00:00: 00:00 mouth 3 [place] 00 :00 (three) Medical times [place] daily. hydrALAZINE 2019-0 2019- No 25mg Take 1 [facility] vers 25 mg 5-21 08-04 tablet by ity of tablet 00:00: 00:00 mouth 3 [place] 00 :00 (three) [facility] times [place] daily. SIMVASTATIN 2019-0 Yes [id number] 40mg TAKE 1 [facility] 40 mg 4-10 TABLET BY ity of tablet 00:00: MOUTH AT [address] SIMVASTATIN 2019-0 Yes [id number] 40mg TAKE 1 [facility] 40 mg 4-10 TABLET BY ity of tablet 00:00: MOUTH AT [address] SIMVASTATIN 2019-0 Yes [id number] 40mg TAKE 1 [facility] 40 mg 4-10 TABLET BY ity of tablet 00:00: MOUTH AT [address] SIMVASTATIN 2019-0 Yes [id number] 40mg TAKE 1 [facility] 40 mg 4-10 TABLET BY ity of tablet 00:00: MOUTH AT [address] SIMVASTATIN 2019-0 Yes [id number] 40mg TAKE 1 [facility] 40 mg 4-10 TABLET BY ity of tablet 00:00: MOUTH AT [address] SIMVASTATIN 2019-0 Yes [id number] 40mg TAKE 1 [facility] 40 mg 4-10 TABLET BY ity of tablet 00:00: MOUTH AT [address] SIMVASTATIN 2019-0 Yes [id number] 40mg TAKE 1 [facility] 40 mg 4-10 TABLET BY ity of tablet 00:00: MOUTH AT [address] SIMVASTATIN 2019-0 Yes [id number] 40mg TAKE 1 [facility] 40 mg 4-10 TABLET BY ity of tablet 00:00: MOUTH AT [address] SIMVASTATIN 2019-0 Yes [id number] 40mg TAKE 1 [facility] 40 mg 4-10 TABLET BY ity of tablet 00:00: MOUTH AT [address] SIMVASTATIN 2019-0 Yes [id number] 40mg TAKE 1 [facility] 40 mg 4-10 TABLET BY ity of tablet 00:00: MOUTH AT [address] SIMVASTATIN 2019-0 Yes [id number] 40mg TAKE 1 [facility] 40 mg 4-10 TABLET BY ity of tablet 00:00: MOUTH AT [address] SIMVASTATIN 2019-0 Yes [id number] 40mg TAKE 1 [facility] 40 mg 4-10 TABLET BY ity of tablet 00:00: MOUTH AT [address] SIMVASTATIN 2019-0 Yes [id number] 40mg TAKE 1 [facility] 40 mg 4-10 TABLET BY ity of tablet 00:00: MOUTH AT [address] SIMVASTATIN 2019-0 Yes [id number] 40mg TAKE 1 [facility] 40 mg 4-10 TABLET BY ity of tablet 00:00: MOUTH AT [address] SIMVASTATIN 2019-0 Yes [id number] 40mg TAKE 1 [facility] 40 mg 4-10 TABLET BY ity of tablet 00:00: MOUTH AT [address] SIMVASTATIN 2019-0 Yes [id number] 40mg TAKE 1 [facility] 40 mg 4-10 TABLET BY ity of tablet 00:00: MOUTH AT [address] SIMVASTATIN 2019-0 Yes [id number] 40mg TAKE 1 [facility] 40 mg 4-10 TABLET BY ity of tablet 00:00: MOUTH AT [address] SIMVASTATIN 2019-0 Yes [id number] 40mg TAKE 1 [facility] 40 mg 4-10 TABLET BY ity of tablet 00:00: MOUTH AT [address] SIMVASTATIN 2019-0 Yes [id number] 40mg TAKE 1 [facility] 40 mg 4-10 TABLET BY ity of tablet 00:00: MOUTH AT [address] SIMVASTATIN 2019-0 Yes [id number] 40mg TAKE 1 [facility] 40 mg 4-10 TABLET BY ity of tablet 00:00: MOUTH AT [address] cyanocobala 2018- 2019- No [id number] 2000ug [facility] min 01-24 ity of (VITAMIN 18:45: 18:44 [place] B12) 00 :00 Medical injection Branch 2,000 mcg cyanocobala 2018- 2019- No [id number] 2000ug [facility] min 01-24 ity of (VITAMIN 18:45: 18:44 [place] B12) 00 :00 Medical injection Branch 2,000 mcg cyanocobala 2018- 2019- No [id number] 2000ug [facility] min 01-24 ity of (VITAMIN 18:45: 18:44 [place] B12) 00 :00 Medical injection Branch 2,000 mcg cyanocobala 2018- 2019- No [id number] 2000ug [facility] min 01-24 ity of (VITAMIN 18:45: 18:44 [place] B12) 00 :00 Medical injection Branch 2,000 mcg cyanocobala 2019- No [id number] 2000ug [facility] min 01-24 ity of (VITAMIN 18:45: 18:44 [place] B12) 00 :00 Medical injection Branch 2,000 mcg cyanocobala 2018- No [id number] 2000ug [facility] min 01-24 ity of (VITAMIN 18:45: 18:44 [place] B12) 00 :00 Medical injection Branch 2,000 mcg cyanocobala 2019- No [id number] 2000ug [facility] min 01-24 ity of (VITAMIN 18:45: 18:44 [place] B12) 00 :00 Medical injection Branch 2,000 mcg cyanocobala 2019- No [id number] 2000ug [facility] min 01-24 ity of (VITAMIN 18:45: 18:44 [place] B12) 00 :00 Medical injection Branch 2,000 mcg cyanocobala 2018- No [id number] 2000ug [facility] min 01-24 ity of (VITAMIN 18:45: 18:44 [place] B12) 00 :00 Medical injection Branch 2,000 mcg cyanocobala 2019- No [id number] 2000ug [facility] min 01-24 ity of (VITAMIN 18:45: 18:44 [place] B12) 00 :00 Medical injection Branch 2,000 mcg cyanocobala 2019- No [id number] 2000ug [facility] min 01-24 ity of (VITAMIN 18:45: 18:44 [place] B12) 00 :00 Medical injection Branch 2,000 mcg cyanocobala 2019- No [id number] 2000ug [facility] min 01-24 ity of (VITAMIN 18:45: 18:44 [place] B12) 00 :00 Medical injection Branch 2,000 mcg pyridoxine, Yes [id number] 50mg Take 1 [facility] vitamin B6, 4-04 tablet by ity of 50 mg 00:00: mouth [place] tablet 00 daily. Medical Needs the Branch active form, pyridoxal- 5-phosphat e, if possible. vitamin B-1 Yes [id number] 250mg Take 1 [facility] 250 mg 4-04 tablet by ity of tablet 00:00: mouth [place] 00 daily. Medical Branch pyridoxine, Yes [id number] 50mg Take 1 [facility] vitamin B6, 4-04 tablet by ity of 50 mg 00:00: mouth [place] tablet 00 daily. Medical Needs the Branch active form, pyridoxal- 5-phosphat e, if possible. vitamin B-1 Yes [id number] 250mg Take 1 [facility] 250 mg 4-04 tablet by ity of tablet 00:00: mouth [place] 00 daily. Medical Branch pyridoxine, Yes [id number] 50mg Take 1 [facility] vitamin B6, 4-04 tablet by ity of 50 mg 00:00: mouth [place] tablet 00 daily. Medical Needs the Branch active form, pyridoxal- 5-phosphat e, if possible. pyridoxine, Yes [id number] 50mg Take 1 [facility] vitamin B6, 4-04 tablet by ity of 50 mg 00:00: mouth [place] tablet 00 daily. Medical Needs the Branch active form, pyridoxal- 5-phosphat e, if possible. pyridoxine, Yes [id number] 50mg Take 1 [facility] vitamin B6, 4-04 tablet by ity of 50 mg 00:00: mouth [place] tablet 00 daily. Medical Needs the Branch active form, pyridoxal- 5-phosphat e, if possible. pyridoxine, Yes [id number] 50mg Take 1 [facility] vitamin B6, 4-04 tablet by ity of 50 mg 00:00: mouth [place] tablet 00 daily. Medical Needs the Branch active form, pyridoxal- 5-phosphat e, if possible. pyridoxine, Yes [id number] 50mg Take 1 [facility] vitamin B6, 4-04 tablet by ity of 50 mg 00:00: mouth [place] tablet 00 daily. Medical Needs the Branch active form, pyridoxal- 5-phosphat e, if possible. pyridoxine, Yes [id number] 50mg Take 1 [facility] vitamin B6, 4-04 tablet by ity of 50 mg 00:00: mouth [place] tablet 00 daily. Medical Needs the Branch active form, pyridoxal- 5-phosphat e, if possible. vitamin B-1 Yes [id number] 250mg Take 1 [facility] 250 mg 4-04 tablet by ity of tablet 00:00: mouth [place] 00 daily. Medical Branch pyridoxine, Yes [id number] 50mg Take 1 [facility] vitamin B6, 4-04 tablet by ity of 50 mg 00:00: mouth [place] tablet 00 daily. Medical Needs the Branch active form, pyridoxal- 5-phosphat e, if possible. vitamin B-1 Yes [id number] 250mg Take 1 [facility] 250 mg 4-04 tablet by ity of tablet 00:00: mouth [place] 00 daily. Medical Branch pyridoxine, 2019- No [id number] 50mg Take 1 [facility] vitamin B6, 4-04 - tablet by it y of 50 mg 00:00: 00:00 mouth [place] tablet 00 :00 daily. Medical Needs the Branch active form, pyridoxal- 5-phosphat e, if possible. vitamin B-1 2019- No [id number] 250mg Take 1 [facility] 250 mg 4-04 - tablet by ity of tablet 00:00: 00:00 mouth [place] 00 :00 daily. Medical Branch vitamin B-1 2019- No [id number] 250mg Take 1 [facility] 250 mg 4-04 08-04 tablet by ity of tablet 00:00: 00:00 mouth [place] 00 :00 daily. Medical Branch MIRTAZAPINE 2018- Yes [id number] TAKE ONE [facility] 15 mg 3-18 TABLET BY ity of tablet 00:00: MOUTH AT [place] 00 BEDTIME Medical Branch TRAMADOL 50 2018- Yes [id number] TAKE 1 [facility] mg tablet 3-18 TABLET BY ity o f 00:00: MOUTH 3 [place] 00 TIMES Medical DAILY FOR Branch CHRONIC PAIN MIRTAZAPINE 2018- Yes [id number] TAKE ONE [facility] 15 mg 3-18 TABLET BY ity of tablet 00:00: MOUTH AT [place] 00 BEDTIME Medical Branch TRAMADOL 50 2018- Yes [id number] TAKE 1 [facility] mg tablet 3-18 TABLET BY ity o f 00:00: MOUTH 3 [place] 00 TIMES Medical DAILY FOR Branch CHRONIC PAIN TRAMADOL 50 2018- Yes [id number] TAKE 1 [facility] mg tablet 3-18 TABLET BY ity o f 00:00: MOUTH 3 [place] 00 TIMES Medical DAILY FOR Branch CHRONIC PAIN TRAMADOL 50 2018- Yes [id number] TAKE 1 [facility] mg tablet 3-18 TABLET BY ity o f 00:00: MOUTH 3 [place] 00 TIMES Medical DAILY FOR Branch CHRONIC PAIN TRAMADOL 50 2018- Yes [id number] TAKE 1 [facility] mg tablet 3-18 TABLET BY ity o f 00:00: MOUTH 3 [place] 00 TIMES Medical DAILY FOR Branch CHRONIC PAIN TRAMADOL 50 2019-0 Yes [id number] TAKE 1 [facility] mg tablet 3-18 TABLET BY ity o f 00:00: MOUTH 3 [place] 00 TIMES Medical DAILY FOR Branch CHRONIC PAIN TRAMADOL 50 2019-0 Yes [id number] TAKE 1 [facility] mg tablet 3-18 TABLET BY ity o f 00:00: MOUTH 3 [place] 00 TIMES Medical DAILY FOR Branch CHRONIC PAIN TRAMADOL 50 2019-0 Yes [id number] TAKE 1 [facility] mg tablet 3-18 TABLET BY ity o f 00:00: MOUTH 3 00 TIMES Medical DAILY FOR Branch CHRONIC PAIN TRAMADOL 50 2019-0 Yes [id number] TAKE 1 [facility] mg tablet 3-18 TABLET BY ity o f 00:00: MOUTH 3 [place] TIMES Medical DAILY FOR Branch CHRONIC PAIN TRAMADOL 50 2019-0 Yes [id number] TAKE 1 [facility] mg tablet 3-18 TABLET BY ity o f 00:00: MOUTH 3 [place] 00 TIMES Medical DAILY FOR Branch CHRONIC PAIN TRAMADOL 50 2019-0 Yes [id number] TAKE 1 [facility] mg tablet 3-18 TABLET BY ity o f 00:00: MOUTH 3 [place] 00 TIMES Medical DAILY FOR Branch CHRONIC PAIN TRAMADOL 50 2019-0 Yes [id number] TAKE 1 [facility] mg tablet 3-18 TABLET BY ity o f 00:00: MOUTH 3 [place] TIMES Medical DAILY FOR Branch CHRONIC PAIN TRAMADOL 50 2019-0 Yes [id number] TAKE 1 [facility] mg tablet 3-18 TABLET BY ity o f 00:00: MOUTH 3 [place] 00 TIMES Medical DAILY FOR Branch CHRONIC PAIN TRAMADOL 50 2019-0 Yes [id number] TAKE 1 [facility] mg tablet 3-18 TABLET BY ity o f 00:00: MOUTH 3 [place] 00 TIMES Medical DAILY FOR Branch CHRONIC PAIN TRAMADOL 50 2019-0 Yes [id number] TAKE 1 [facility] mg tablet 3-18 TABLET BY ity o f 00:00: MOUTH 3 [place] 00 TIMES Medical DAILY FOR Branch CHRONIC PAIN MIRTAZAPINE 2019-0 Yes [id number] TAKE ONE [facility] 15 mg 3-18 TABLET BY ity of tablet 00:00: MOUTH AT [place] 00 BEDTIME Medical Branch TRAMADOL 50 2019-0 Yes [id number] TAKE 1 [facility] mg tablet 3-18 TABLET BY ity o f 00:00: MOUTH 3 [place] TIMES Medical DAILY FOR Branch CHRONIC PAIN MIRTAZAPINE Yes [id number] TAKE ONE [facility] 15 mg 3-18 TABLET BY ity of tablet 00:00: MOUTH AT [place] 00 BEDTIME Medical Branch TRAMADOL 50 Yes [id number] TAKE 1 [facility] mg tablet 3-18 TABLET BY ity o f 00:00: MOUTH 3 [place] 00 TIMES Medical DAILY FOR Branch CHRONIC PAIN TRAMADOL 50 2019- No [id number] TAKE 1 [facility] mg tablet 3-18 09-08 TABLET BY ity of 00:00: 00:00 MOUTH 3 [place] 00 :00 TIMES Medical DAILY FOR Branch CHRONIC PAIN MIRTAZAPINE 2019- No [id number] TAKE ONE [facility] 15 mg 3-18 08-04 TABLET BY ity of tablet 00:00: 00:00 MOUTH AT [place] 00 :00 BEDTIME Medical Branch MIRTAZAPINE 2019- No [id number] TAKE ONE [facility] 15 mg 3-18 08-04 TABLET BY ity of tablet 00:00: 00:00 MOUTH AT [place] 00 :00 BEDTIME Medical Branch carbidopa-l Yes [id number] 1{tbl} Take 1 [facility] evodopa 1-29 tablet by ity of 25-100 mg 00:00: mouth 3 [place] tablet 00 (three) Medical times Branch daily. Take the drug either 30 mins before or after meals carbidopa-l Yes [id number] 1{tbl} Take 1 [facility] evodopa 1-29 tablet by ity of 25-100 mg 00:00: mouth 3 [place] tablet 00 (three) Medical times Branch daily. Take the drug either 30 mins before or after meals carbidopa-l Yes [id number] 1{tbl} Take 1 [facility] evodopa 1-29 tablet by ity of 25-100 mg 00:00: mouth 3 [place] tablet 00 (three) Medical times Branch daily. Take the drug either 30 mins before or after meals carbidopa-l Yes [id number] 1{tbl} Take 1 [facility] evodopa 1-29 tablet by ity of 25-100 mg 00:00: mouth 3 [place] tablet 00 (three) Medical times Branch daily. Take the drug either 30 mins before or after meals carbidopa-l 2019- No [id number] 1{tbl} Take 1 [facility] evodopa 1-29 08-04 tablet by ity of 25-100 mg 00:00: 00:00 mouth 3 [place] tablet 00 :00 (three) Medical times Branch daily. Take the drug either 30 mins before or after meals carbidopa-l 2019- No [id number] 1{tbl} Take 1 [facility] evodopa 11-20-04 tablet by ity of 25-100 mg 00:00: 00:00 mouth 3 [place] tablet 00 :00 (three) Medical times Branch daily. Take the drug either 30 mins before or after meals tamsulosin 2017-10 Yes .4mg Take 1 Un[facility] rs 0.4 mg 24 2-07 capsule by ity of hr capsule 00:00: mouth [place] 00 daily. Medical Branch tamsulosin 2017-10 Yes .4mg Take 1 Unive rs 0.4 mg 24 2-07 capsule by ity of hr capsule 00:00: mouth [place] 00 daily. Medical Branch tamsulosin 2017-10 Yes .4mg Take 1 Unive rs 0.4 mg 24 2-07 capsule by ity of hr capsule 00:00: mouth [place] 00 daily. Medical Branch tamsulosin 2017-10 Yes .4mg Take 1 Unive rs 0.4 mg 24 2-07 capsule by ity of hr capsule 00:00: mouth [place] 00 daily. Medical Branch tamsulosin 2017-10 2019- No .4mg Take 1 Univ ers 0.4 mg 24 2-07 08-04 capsule by ity of hr capsule 00:00: 00:00 mouth [place] 00 :00 daily. Medical Branch tamsulosin 2017-10 2019- No .4mg Take 1 [facility] ers 0.4 mg 24 2-07 08-04 capsule by ity of hr capsule 00:00: 00:00 mouth [place] 00 :00 daily. Medical Branch SERTRALINE 2017-10 Yes TAKE TWO [facility] vers 100 mg 0-18 TABLETS BY ity of tablet 00:00: MOUTH [place] 00 DAILY Medical Branch SERTRALINE 2017-10 Yes TAKE TWO [facility] vers 100 mg 0-18 TABLETS BY ity of tablet 00:00: MOUTH [place] 00 DAILY Medical Branch SERTRALINE 2017-10 Yes TAKE TWO [facility] vers 100 mg 0-18 TABLETS BY ity of tablet 00:00: MOUTH [place] 00 DAILY Medical Branch SERTRALINE 2017-10 Yes TAKE TWO [facility] vers 100 mg 0-18 TABLETS BY ity of tablet 00:00: [facility] DAILY Medical Branch SERTRALINE 2017-10 Yes TAKE TWO [facility] vers 100 mg 0-18 TABLETS BY ity of tablet 00:00: [facility] DAILY Medical Branch SERTRALINE 2017-10 Yes TAKE TWO [facility] vers 100 mg 0-18 TABLETS BY ity of tablet 00:00: [facility] DAILY Medical Branch SERTRALINE 2017-10 Yes TAKE TWO [facility] vers 100 mg 0-18 TABLETS BY ity of tablet 00:00: [facility] DAILY Medical Branch SERTRALINE 2017-10 Yes TAKE TWO [facility] vers 100 mg 0-18 TABLETS BY ity of tablet 00:00: [facility] DAILY Medical Branch SERTRALINE 2017-10 Yes TAKE TWO [facility] vers 100 mg 0-18 TABLETS BY ity of tablet 00:00: [facility] DAILY Medical Branch SERTRALINE 2017-10 Yes TAKE TWO [facility] vers 100 mg 0-18 TABLETS BY ity of tablet 00:00: [facility] DAILY Medical Branch SERTRALINE 2017-10 Yes TAKE TWO [facility] vers 100 mg 0-18 TABLETS BY ity of tablet 00:00: [facility] DAILY Medical Branch SERTRALINE 2017-10 Yes TAKE TWO [facility] vers 100 mg 0-18 TABLETS BY ity of tablet 00:00: [facility] DAILY Medical Branch SERTRALINE 2017-10 Yes TAKE TWO [facility] vers 100 mg 0-18 TABLETS BY ity of tablet 00:00: [facility] DAILY Medical Branch SERTRALINE 2017-10 Yes TAKE TWO [facility] vers 100 mg 0-18 TABLETS BY ity of tablet 00:00: [facility] DAILY Medical Branch SERTRALINE 2017-10 Yes TAKE TWO [facility] vers 100 mg 0-18 TABLETS BY ity of tablet 00:00: [facility] DAILY Medical Branch SERTRALINE 2017-10 Yes TAKE TWO [facility] vers 100 mg 0-18 TABLETS BY ity of tablet 00:00: [facility] DAILY Medical Branch SERTRALINE 2017-10 Yes TAKE TWO [facility] vers 100 mg 0-18 TABLETS BY ity of tablet 00:: [facility] DAILY Medical Branch SERTRALINE 2017-10 Yes TAKE TWO [facility] vers 100 mg 0-18 TABLETS BY ity of tablet 00:00: [facility] DAILY Medical Branch SERTRALINE 2017-10 Yes TAKE TWO [facility] vers 100 mg 0-18 TABLETS BY ity of tablet 00:00: [facility] DAILY Medical Branch SERTRALINE 2017-10 Yes TAKE TWO [facility] vers 100 mg 0-18 TABLETS BY ity of tablet 00:00: MOUTH [place] DAILY Medical Branch SERTRALINE 2017-10 Yes TAKE TWO [facility] vers 100 mg 0-18 TABLETS BY ity of tablet 00:00: MOUTH [place] DAILY Medical Branch SERTRALINE 2017-10 Yes TAKE TWO [facility] vers 100 mg 0-18 TABLETS BY ity of tablet 00:00: MOUTH [place] DAILY Medical Branch SERTRALINE 2017-10 Yes TAKE TWO [facility] vers 100 mg 0-18 TABLETS BY ity of tablet 00:00: MOUTH [place] DAILY Medical Branch SERTRALINE 2017-10 Yes TAKE TWO [facility] vers 100 mg 0-18 TABLETS BY ity of tablet 00:00: MOUTH [place] DAILY Medical Branch SERTRALINE 2017-10 Yes TAKE TWO [facility] vers 100 mg 0-18 TABLETS BY ity of tablet 00:00: MOUTH [place] DAILY Medical Branch SERTRALINE 2017-10 Yes TAKE TWO [facility] vers 100 mg 0-18 TABLETS BY ity of tablet 00:00: MOUTH [place] DAILY Medical Branch SERTRALINE 2017-10 Yes TAKE TWO [facility] vers 100 mg 0-18 TABLETS BY ity of tablet 00:00: MOUTH [place] DAILY Medical Branch SERTRALINE 2017-10 Yes TAKE TWO [facility] vers 100 mg 0-18 TABLETS BY ity of tablet 00:00: MOUTH [place] DAILY Medical Branch SERTRALINE 2017-10 2020- No TAKE TWO Un darshana 100 mg 0-18 04-10 TABLETS BY ity of tablet 00:00: 00:00 MOUTH [place] 00 :00 DAILY Medical Branch SERTRALINE 2017-10 2020- No TAKE TWO Un darshana 100 mg 0-18 04-10 TABLETS BY ity of tablet 00:00: 00:00 MOUTH [place] 00 :00 DAILY Medical Branch aspirin 81 Yes 81mg Take 1 Unive rs mg EC 8-16 tablet by ity of tablet 00:00: mouth [place] 00 daily. Medical Branch Cholecalcif Yes 5000U Take 1 Uni vers jennifer, 8-16 tablet by ity of Vitamin D3, 00:00: mouth [place] (VITAMIN 00 daily. Medical D3) 5,000 Branch unit tablet aspirin 81 Yes 81mg Take 1 Unive rs mg EC 8-16 tablet by ity of tablet 00:00: mouth [place] 00 daily. Medical Branch Cholecalcif Yes 5000U Take 1 Uni vers jennifer, 8-16 tablet by ity of Vitamin D3, 00:00: mouth [place] (VITAMIN 00 daily. Medical D3) 5,000 Branch unit tablet aspirin 81 Yes 81mg Take 1 Unive rs mg EC 8-16 tablet by ity of tablet 00:00: mouth [place] 00 daily. Medical Branch Cholecalcif Yes 5000U Take 1 Uni vers jennifer, 8-16 tablet by ity of Vitamin D3, 00:00: mouth [place] (VITAMIN 00 daily. Medical D3) 5,000 Branch unit tablet aspirin 81 Yes 81mg Take 1 Unive rs mg EC 8-16 tablet by ity of tablet 00:00: mouth [place] 00 daily. Medical Branch Cholecalcif Yes 5000U Take 1 Uni vers jennifer, 8-16 tablet by ity of Vitamin D3, 00:00: mouth [place] (VITAMIN 00 daily. Medical D3) 5,000 Branch unit tablet aspirin 81 2019- No 81mg Take 1 Univ ers mg EC 8-16 08-04 tablet by ity of tablet 00:00: 00:00 mouth [place] 00 :00 daily. Medical Branch Cholecalcif 2019- No 5000U Take 1 Un darshana jennifer, 8-16 08-04 tablet by ity of Vitamin D3, 00:00: 00:00 mouth [place] (VITAMIN 00 :00 daily. Medical D3) 5,000 Branch unit tablet aspirin 81 2019- No 81mg Take 1 Univ ers mg EC 8-16 08-04 tablet by ity of tablet 00:00: 00:00 mouth [place] 00 :00 daily. Medical Branch Cholecalcif 2019- No 5000U Take 1 Un darshana jennifer, 8-16 08-04 tablet by ity of Vitamin D3, 00:00: 00:00 mouth [place] (VITAMIN 00 :00 daily. Medical D3) 5,000 Branch unit tablet Flomax 0.4 Flomax 0.4 No 1capsul BID Flomax 0.4 [facility] mg capsule mg capsule e(s) mg capsule Medical Take 1 Take 1 Take 1 capsule capsule capsule twice a day twice a day twice a by oral by oral day by route. route. oral route. hydralazine hydralazine No 1 BID hydralazin [facility] 10 mg 10 mg e 10 mg Medical tablet Take tablet Take tablet 1 tablet 1 tablet Take 1 twice a day twice a day tablet by oral by oral twice a route. route. day by oral route. Lantus Lantus No 25unit( Q1D Lantus [facility] U-100 U-100 s) U-100 Medical Insulin 100 Insulin 100 Insulin unit/mL unit/mL 100 subcutaneou subcutaneou unit/mL s solution s solution subcutaneo Inject 25 Inject 25 us units every units every solution day by day by Inject 25 subcutaneou subcutaneou units s route in s route in every day the the by morning. morning. subcutaneo us route in the morning. lisinopril lisinopril No 1 Q1D lisinopril [facility] 5 mg tablet 5 mg tablet 5 mg M edical Take 1 Take 1 tablet tablet tablet Take 1 every day every day tablet by oral by oral every day route. route. by oral route. Miralax 17 Miralax 17 No 1packet Q1D Miralax 17 [facility] gram oral gram oral (s) gram oral Medical powder powder powder packet Take packet Take packet 1 packet 1 packet Take 1 every day every day packet by oral by oral every day route as route as by oral needed. needed. route as needed. Seroquel Seroquel No 1 BID Seroquel [facility] via 100 mg 100 mg 100 mg Medical tablet Take tablet Take tablet 1 tablet 1 tablet Take 1 twice a day twice a day tablet by oral by oral twice a route. route. day by oral route. sertraline sertraline No 2 Q1D sertraline [facility] 100 mg 100 mg 100 mg Medical tablet Take tablet Take tablet 2 tablets 2 tablets Take 2 every day every day tablets by oral by oral every day route. route. by oral route. Tradjenta 5 Tradjenta 5 No 1 Q1D Tradjenta [facility] mg tablet mg tablet 5 mg Medic al Take 1 Take 1 tablet tablet tablet Take 1 every day every day tablet by oral by oral every day route. route. by oral route. Tylenol 325 Tylenol 325 No 2capsul Q6H Tylenol [facility] mg capsule mg capsule e(s) 325 mg M edical Take 2 Take 2 capsule capsules capsules Take 2 every 6 every 6 capsules hours by hours by every 6 oral route oral route hours by as needed. as needed. oral route as needed. aspirin 81 aspirin 81 No 1 Q1D aspirin 81 [facility] mg mg mg Medical tablet,marty tablet,marty tablet,del yed release yed release ayed Take 1 Take 1 release tablet tablet Take 1 every day every day tablet by oral by oral every day route. route. by oral route. Depakote Depakote No 2capsul BID Depakote [facility] Sprinkles Sprinkles e(s) Spr[facility] 125 mg 125 mg 125 mg capsule,del capsule,del capsule,de ayed ayed layed release release release Take 2 Take 2 Take 2 capsules capsules capsules twice a day twice a day twice a by oral by oral day by route. route. oral route. docusate docusate No 1capsul BID docusate [facility] sodium 100 sodium 100 e(s) sodium 100 Medical mg capsule mg capsule mg capsule Take 1 Take 1 Take 1 capsule capsule capsule twice a day twice a day twice a by oral by oral day by route. route. oral route. finasteride finasteride No 1 Q1D finasterid [facility] 5 mg tablet 5 mg tablet e 5 mg Medical Take 1 Take 1 tablet tablet tablet Take 1 every day every day tablet by oral by oral every day route. route. by oral route. Flomax 0.4 Flomax 0.4 No 1capsul BID Flomax 0.4 [facility] mg capsule mg capsule e(s) mg capsule Medical Take 1 Take 1 Take 1 capsule capsule capsule twice a day twice a day twice a by oral by oral day by route. route. oral route. hydralazine hydralazine No 1 BID hydralazin [facility] 10 mg 10 mg e 10 mg Medical tablet Take tablet Take tablet 1 tablet 1 tablet Take 1 twice a day twice a day tablet by oral by oral twice a route. route. day by oral route. Lantus Lantus No 25unit( Q1D Lantus [facility] U-100 U-100 s) U-100 [facility] Insulin 100 Insulin 100 Insulin unit/mL unit/mL 100 subcutaneou subcutaneou unit/mL s solution s solution subcutaneo Inject 25 Inject 25 us units every units every solution day by day by Inject 25 subcutaneou subcutaneou units s route in s route in every day the the by morning. morning. subcutaneo us route in the morning. lisinopril lisinopril No 1 Q1D lisinopril [facility] 5 mg tablet 5 mg tablet 5 mg M edical Take 1 Take 1 tablet tablet tablet Take 1 every day every day tablet by oral by oral every day route. route. by oral route. Miralax 17 Miralax 17 No 1packet Q1D Miralax 17 [facility] gram oral gram oral (s) gram oral Medical powder powder powder packet Take packet Take packet 1 packet 1 packet Take 1 every day every day packet by oral by oral every day route as route as by oral needed. needed. route as needed. Seroquel Seroquel No 1 BID Seroquel [facility] via 100 mg 100 mg 100 mg Medical tablet Take tablet Take tablet 1 tablet 1 tablet Take 1 twice a day twice a day tablet by oral by oral twice a route. route. day by oral route. sertraline sertraline No 2 Q1D sertraline [facility] 100 mg 100 mg 100 mg Medical tablet Take tablet Take tablet 2 tablets 2 tablets Take 2 every day every day tablets by oral by oral every day route. route. by oral route. Tradjenta 5 Tradjenta 5 No 1 Q1D Tradjenta [facility] mg tablet mg tablet 5 mg Medic al Take 1 Take 1 tablet tablet tablet Take 1 every day every day tablet by oral by oral every day route. route. by oral route. Tylenol 325 Tylenol 325 No 2capsul Q6H Tylenol [facility] mg capsule mg capsule e(s) 325 mg M edical Take 2 Take 2 capsule capsules capsules Take 2 every 6 every 6 capsules hours by hours by every 6 oral route oral route hours by as needed. as needed. oral route as needed. aspirin 81 aspirin 81 No 1 Q1D aspirin 81 [facility] mg mg mg Medical tablet,marty tablet,marty tablet,del yed release yed release ayed Take 1 Take 1 release tablet tablet Take 1 every day every day tablet by oral by oral every day route. route. by oral route. Depakote Depakote No 2capsul BID Depakote [facility] Sprinkles Sprinkles e(s) [facility] 125 mg 125 mg 125 mg capsule,del capsule,del capsule,de ayed ayed layed release release release Take 2 Take 2 Take 2 capsules capsules capsules twice a day twice a day twice a by oral by oral day by route. route. oral route. docusate docusate No 1capsul BID docusate [facility] sodium 100 sodium 100 e(s) sodium 100 [facility] mg capsule mg capsule mg capsule Take 1 Take 1 Take 1 capsule capsule capsule twice a day twice a day twice a by oral by oral day by route. route. oral route. finasteride finasteride No 1 Q1D finasterid [facility] 5 mg tablet 5 mg tablet e 5 mg Medical Take 1 Take 1 tablet tablet tablet Take 1 every day every day tablet by oral by oral every day route. route. by oral route. Flomax 0.4 Flomax 0.4 No 1capsul BID Flomax 0.4 [facility] mg capsule mg capsule e(s) mg capsule Medical Take 1 Take 1 Take 1 capsule capsule capsule twice a day twice a day twice a by oral by oral day by route. route. oral route. hydralazine hydralazine No 1 BID hydralazin [facility] 10 mg 10 mg e 10 mg Medical tablet Take tablet Take tablet 1 tablet 1 tablet Take 1 twice a day twice a day tablet by oral by oral twice a route. route. day by oral route. Lantus Lantus No 25unit( Q1D Lantus [facility] U-100 U-100 s) U-100 [facility] Insulin 100 Insulin 100 Insulin unit/mL unit/mL 100 subcutaneou subcutaneou unit/mL s solution s solution subcutaneo Inject 25 Inject 25 us units every units every solution day by day by Inject 25 subcutaneou subcutaneou units s route in s route in every day the the by morning. morning. subcutaneo us route in the morning. lisinopril lisinopril No 1 Q1D lisinopril [facility] 5 mg tablet 5 mg tablet 5 mg M edical Take 1 Take 1 tablet tablet tablet Take 1 every day every day tablet by oral by oral every day route. route. by oral route. Miralax 17 Miralax 17 No 1packet Q1D Miralax 17 [facility] gram oral gram oral (s) gram oral Medical powder powder powder packet Take packet Take packet 1 packet 1 packet Take 1 every day every day packet by oral by oral every day route as route as by oral needed. needed. route as needed. Seroquel Seroquel No 1 BID Seroquel [facility] via 100 mg 100 mg 100 mg Medical tablet Take tablet Take tablet 1 tablet 1 tablet Take 1 twice a day twice a day tablet by oral by oral twice a route. route. day by oral route. sertraline sertraline No 2 Q1D sertraline [facility] 100 mg 100 mg 100 mg Medical tablet Take tablet Take tablet 2 tablets 2 tablets Take 2 every day every day tablets by oral by oral every day route. route. by oral route. Tradjenta 5 Tradjenta 5 No 1 Q1D Tradjenta [facility] mg tablet mg tablet 5 mg Medic al Take 1 Take 1 tablet tablet tablet Take 1 every day every day tablet by oral by oral every day route. route. by oral route. Tylenol 325 Tylenol 325 No 2capsul Q6H Tylenol [facility] mg capsule mg capsule e(s) 325 mg M edical Take 2 Take 2 capsule capsules capsules Take 2 every 6 every 6 capsules hours by hours by every 6 oral route oral route hours by as needed. as needed. oral route as needed. aspirin 81 aspirin 81 No 1 Q1D aspirin 81 [facility] mg mg mg Medical tablet,marty tablet,marty tablet,del yed release yed release ayed Take 1 Take 1 release tablet tablet Take 1 every day every day tablet by oral by oral every day route. route. by oral route. Depakote Depakote No 2capsul BID Depakote [facility] Sprinkles Sprinkles e(s) [facility] 125 mg 125 mg 125 mg capsule,del capsule,del capsule,de ayed ayed layed release release release Take 2 Take 2 Take 2 capsules capsules capsules twice a day twice a day twice a by oral by oral day by route. route. oral route. docusate docusate No 1capsul BID docusate [facility] sodium 100 sodium 100 e(s) sodium 100 Medical mg capsule mg capsule mg capsule Take 1 Take 1 Take 1 capsule capsule capsule twice a day twice a day twice a by oral by oral day by route. route. oral route. finasteride finasteride No 1 Q1D finasterid [facility] 5 mg tablet 5 mg tablet e 5 mg Medical Take 1 Take 1 tablet tablet tablet Take 1 every day every day tablet by oral by oral every day route. route. by oral route. Flomax 0.4 Flomax 0.4 No 1capsul Q1D Flomax 0.4 [facility] mg capsule mg capsule e(s) mg capsule Medical Take 1 Take 1 Take 1 capsule capsule capsule every day every day every day by oral by oral by oral route. route. route. hydralazine hydralazine No 1 BID hydralazin [facility] 10 mg 10 mg e 10 mg Medical tablet Take tablet Take tablet 1 tablet 1 tablet Take 1 twice a day twice a day tablet by oral by oral twice a route. route. day by oral route. Lantus Lantus No 29unit( Q1D Lantus [facility] U-100 U-100 s) U-100 [facility] Insulin 100 Insulin 100 Insulin unit/mL unit/mL 100 subcutaneou subcutaneou unit/mL s solution s solution subcutaneo Inject 29 Inject 29 us units every units every solution day by day by Inject 29 subcutaneou subcutaneou units s route in s route in every day the the by morning. morning. subcutaneo us route in the morning. lisinopril lisinopril No 1 Q1D lisinopril [facility] 5 mg tablet 5 mg tablet 5 mg M edical Take 1 Take 1 tablet tablet tablet Take 1 every day every day tablet by oral by oral every day route. route. by oral route. Miralax 17 Miralax 17 No 1packet Q1D Miralax 17 [facility] gram oral gram oral (s) gram oral Medical powder powder powder packet Take packet Take packet 1 packet 1 packet Take 1 every day every day packet by oral by oral every day route as route as by oral needed. needed. route as needed. Seroquel Seroquel No 1 BID Seroquel [facility] via 100 mg 100 mg 100 mg Medical tablet Take tablet Take tablet 1 tablet 1 tablet Take 1 twice a day twice a day tablet by oral by oral twice a route. route. day by oral route. sertraline sertraline No 2 Q1D sertraline [facility] 100 mg 100 mg 100 mg Medical tablet Take tablet Take tablet 2 tablets 2 tablets Take 2 every day every day tablets by oral by oral every day route. route. by oral route. Tradjenta 5 Tradjenta 5 No 1 Q1D Tradjenta [facility] mg tablet mg tablet 5 mg Medic al Take 1 Take 1 tablet tablet tablet Take 1 every day every day tablet by oral by oral every day route. route. by oral route. Tylenol 325 Tylenol 325 No 2capsul Q6H Tylenol [facility] mg capsule mg capsule e(s) 325 mg M edical Take 2 Take 2 capsule capsules capsules Take 2 every 6 every 6 capsules hours by hours by every 6 oral route oral route hours by as needed. as needed. oral route as needed. aspirin 81 aspirin 81 No 1 Q1D aspirin 81 [facility] mg mg mg Medical tablet,marty tablet,marty tablet,del yed release yed release ayed Take 1 Take 1 release tablet tablet Take 1 every day every day tablet by oral by oral every day route. route. by oral route. Debrox 6.5 Debrox 6.5 No Debrox 6.5 [facility] % ear drops % ear drops % ear Medical INSTILL 5 INSTILL 5 drops DROPS INTO DROPS INTO INSTILL 5 AFFECTED AFFECTED DROPS INTO EAR(S) BY EAR(S) BY AFFECTED OTIC ROUTE OTIC ROUTE EAR(S) BY 2 TIMES PER 2 TIMES PER OTIC ROUTE DAY DAY 2 TIMES PER DAY Depakote Depakote No 2capsul BID Depakote [facility] Sprinkles Sprinkles e(s) [facility] 125 mg 125 mg 125 mg capsule,del capsule,del capsule,de ayed ayed layed release release release Take 2 Take 2 Take 2 capsules capsules capsules twice a day twice a day twice a by oral by oral day by route. route. oral route. docusate docusate No 1capsul BID docusate [facility] sodium 100 sodium 100 e(s) sodium 100 Medical mg capsule mg capsule mg capsule Take 1 Take 1 Take 1 capsule capsule capsule twice a day twice a day twice a by oral by oral day by route. route. oral route. finasteride finasteride No 1 Q1D finasterid [facility] 5 mg tablet 5 mg tablet e 5 mg Medical Take 1 Take 1 tablet tablet tablet Take 1 every day every day tablet by oral by oral every day route. route. by oral route. Flomax 0.4 Flomax 0.4 No 1capsul Q1D Flomax 0.4 [facility] mg capsule mg capsule e(s) mg capsule Medical Take 1 Take 1 Take 1 capsule capsule capsule every day every day every day by oral by oral by oral route. route. route. hydralazine hydralazine No 1 BID hydralazin [facility] 10 mg 10 mg e 10 mg Medical tablet Take tablet Take tablet 1 tablet 1 tablet Take 1 twice a day twice a day tablet by oral by oral twice a route. route. day by oral route. Lantus Lantus No 29unit( Q1D Lantus [facility] U-100 U-100 s) U-100 [facility] Insulin 100 Insulin 100 Insulin unit/mL unit/mL 100 subcutaneou subcutaneou unit/mL s solution s solution subcutaneo Inject 29 Inject 29 us units every units every solution day by day by Inject 29 subcutaneou subcutaneou units s route in s route in every day the the by morning. morning. subcutaneo us route in the morning. lisinopril lisinopril No 1 Q1D lisinopril [facility] 5 mg tablet 5 mg tablet 5 mg M edical Take 1 Take 1 tablet tablet tablet Take 1 every day every day tablet by oral by oral every day route. route. by oral route. Miralax 17 Miralax 17 No 1packet Q1D Miralax 17 [facility] gram oral gram oral (s) gram oral Medical powder powder powder packet Take packet Take packet 1 packet 1 packet Take 1 every day every day packet by oral by oral every day route as route as by oral needed. needed. route as needed. Seroquel Seroquel No 1 BID Seroquel [facility] via 100 mg 100 mg 100 mg Medical tablet Take tablet Take tablet 1 tablet 1 tablet Take 1 twice a day twice a day tablet by oral by oral twice a route. route. day by oral route. sertraline sertraline No 2 Q1D sertraline [facility] 100 mg 100 mg 100 mg Medical tablet Take tablet Take tablet 2 tablets 2 tablets Take 2 every day every day tablets by oral by oral every day route. route. by oral route. Tradjenta 5 Tradjenta 5 No 1 Q1D Tradjenta [facility] mg tablet mg tablet 5 mg Medic al Take 1 Take 1 tablet tablet tablet Take 1 every day every day tablet by oral by oral every day route. route. by oral route. Tylenol 325 Tylenol 325 No 2capsul Q6H Tylenol [facility] mg capsule mg capsule e(s) 325 mg M edical Take 2 Take 2 capsule capsules capsules Take 2 every 6 every 6 capsules hours by hours by every 6 oral route oral route hours by as needed. as needed. oral route as needed. aspirin 81 aspirin 81 No 1 Q1D aspirin 81 [facility] mg mg mg Medical tablet,marty tablet,marty tablet,del yed release yed release ayed Take 1 Take 1 release tablet tablet Take 1 every day every day tablet by oral by oral every day route. route. by oral route. divalproex divalproex No 1 BID divalproex [facility] 500 mg 500 mg 500 mg Medical tablet,marty tablet,marty tablet,del yed release yed release ayed Take 1 Take 1 release tablet tablet Take 1 twice a day twice a day tablet by oral by oral twice a route. route. day by oral route. docusate docusate No 1capsul BID docusate [facility] sodium 100 sodium 100 e(s) sodium 100 Medical mg capsule mg capsule mg capsule Take 1 Take 1 Take 1 capsule capsule capsule twice a day twice a day twice a by oral by oral day by route. route. oral route. finasteride finasteride No 1 Q1D finasterid [facility] 5 mg tablet 5 mg tablet e 5 mg Medical Take 1 Take 1 tablet tablet tablet Take 1 every day every day tablet by oral by oral every day route. route. by oral route. Flomax 0.4 Flomax 0.4 No 1capsul Q1D Flomax 0.4 [facility] mg capsule mg capsule e(s) mg capsule Medical Take 1 Take 1 Take 1 capsule capsule capsule every day every day every day by oral by oral by oral route. route. route. hydralazine hydralazine No 1 BID hydralazin [facility] 10 mg 10 mg e 10 mg Medical tablet Take tablet Take tablet 1 tablet 1 tablet Take 1 twice a day twice a day tablet by oral by oral twice a route. route. day by oral route. Lantus Lantus No 31unit( Q1D Lantus [facility] U-100 U-100 s) U-100 [facility] Insulin 100 Insulin 100 Insulin unit/mL unit/mL 100 subcutaneou subcutaneou unit/mL s solution s solution subcutaneo Inject 31 Inject 31 us units every units every solution day by day by Inject 31 subcutaneou subcutaneou units s route in s route in every day the the by morning. morning. subcutaneo us route in the morning. lisinopril lisinopril No 1 Q1D lisinopril [facility] 5 mg tablet 5 mg tablet 5 mg M edical Take 1 Take 1 tablet tablet tablet Take 1 every day every day tablet by oral by oral every day route. route. by oral route. metformin metformin No 1 BID metformin [facility] 500 mg 500 mg 500 mg Medical tablet Take tablet Take tablet 1 tablet 1 tablet Take 1 twice a day twice a day tablet by oral by oral twice a route. route. day by oral route. Miralax 17 Miralax 17 No 1packet Q1D Miralax 17 [facility] gram oral gram oral (s) gram oral Medical powder powder powder packet Take packet Take packet 1 packet 1 packet Take 1 every day every day packet by oral by oral every day route as route as by oral needed. needed. route as needed. Seroquel Seroquel No 1 BID Seroquel [facility] via 100 mg 100 mg 100 mg Medical tablet Take tablet Take tablet 1 tablet 1 tablet Take 1 twice a day twice a day tablet by oral by oral twice a route. route. day by oral route. sertraline sertraline No 2 Q1D sertraline [facility] 100 mg 100 mg 100 mg Medical tablet Take tablet Take tablet 2 tablets 2 tablets Take 2 every day every day tablets by oral by oral every day route. route. by oral route. Tylenol 325 Tylenol 325 No 2capsul Q6H Tylenol [facility] mg capsule mg capsule e(s) 325 mg M edical Take 2 Take 2 capsule capsules capsules Take 2 every 6 every 6 capsules hours by hours by every 6 oral route oral route hours by as needed. as needed. oral route as needed. aspirin 81 aspirin 81 No 1 Q1D aspirin 81 [facility] mg mg mg Medical tablet,marty tablet,marty tablet,del yed release yed release ayed Take 1 Take 1 release tablet tablet Take 1 every day every day tablet by oral by oral every day route. route. by oral route. divalproex divalproex No 1 BID divalproex [facility] 500 mg 500 mg 500 mg Medical tablet,marty tablet,marty tablet,del yed release yed release ayed Take 1 Take 1 release tablet tablet Take 1 twice a day twice a day tablet by oral by oral twice a route. route. day by oral route. docusate docusate No 1capsul BID docusate [facility] sodium 100 sodium 100 e(s) sodium 100 Medical mg capsule mg capsule mg capsule Take 1 Take 1 Take 1 capsule capsule capsule twice a day twice a day twice a by oral by oral day by route. route. oral route. finasteride finasteride No 1 Q1D finasterid [facility] 5 mg tablet 5 mg tablet e 5 mg Medical Take 1 Take 1 tablet tablet tablet Take 1 every day every day tablet by oral by oral every day route. route. by oral route. Flomax 0.4 Flomax 0.4 No 1capsul Q1D Flomax 0.4 [facility] mg capsule mg capsule e(s) mg capsule Medical Take 1 Take 1 Take 1 capsule capsule capsule every day every day every day by oral by oral by oral route. route. route. hydralazine hydralazine No 1 BID hydralazin [facility] 10 mg 10 mg e 10 mg Medical tablet Take tablet Take tablet 1 tablet 1 tablet Take 1 twice a day twice a day tablet by oral by oral twice a route. route. day by oral route. Lantus Lantus No 31unit( Q1D Lantus [facility] U-100 U-100 s) U-100 Medical Insulin 100 Insulin 100 Insulin unit/mL unit/mL 100 subcutaneou subcutaneou unit/mL s solution s solution subcutaneo Inject 31 Inject 31 us units every units every solution day by day by Inject 31 subcutaneou subcutaneou units s route in s route in every day the the by morning. morning. subcutaneo us route in the morning. lisinopril lisinopril No 1 Q1D lisinopril [facility] 5 mg tablet 5 mg tablet 5 mg M edical Take 1 Take 1 tablet tablet tablet Take 1 every day every day tablet by oral by oral every day route. route. by oral route. metformin metformin No 1 BID metformin [facility] 500 mg 500 mg 500 mg Medical tablet Take tablet Take tablet 1 tablet 1 tablet Take 1 twice a day twice a day tablet by oral by oral twice a route. route. day by oral route. Miralax 17 Miralax 17 No 1packet Q1D Miralax 17 [facility] gram oral gram oral (s) gram oral Medical powder powder powder packet Take packet Take packet 1 packet 1 packet Take 1 every day every day packet by oral by oral every day route as route as by oral needed. needed. route as needed. Seroquel Seroquel No 1 BID Seroquel [facility] via 100 mg 100 mg 100 mg Medical tablet Take tablet Take tablet 1 tablet 1 tablet Take 1 twice a day twice a day tablet by oral by oral twice a route. route. day by oral route. sertraline sertraline No 2 Q1D sertraline [facility] 100 mg 100 mg 100 mg Medical tablet Take tablet Take tablet 2 tablets 2 tablets Take 2 every day every day tablets by oral by oral every day route. route. by oral route. Tylenol 325 Tylenol 325 No 2capsul Q6H Tylenol [facility] mg capsule mg capsule e(s) 325 mg M edical Take 2 Take 2 capsule capsules capsules Take 2 every 6 every 6 capsules hours by hours by every 6 oral route oral route hours by as needed. as needed. oral route as needed. aspirin 81 aspirin 81 No 1 Q1D aspirin 81 [facility] mg mg mg Medical tablet,marty tablet,marty tablet,del yed release yed release ayed Take 1 Take 1 release tablet tablet Take 1 every day every day tablet by oral by oral every day route. route. by oral route. divalproex divalproex No 1 BID divalproex [facility] 500 mg 500 mg 500 mg Medical tablet,marty tablet,marty tablet,del yed release yed release ayed Take 1 Take 1 release tablet tablet Take 1 twice a day twice a day tablet by oral by oral twice a route. route. day by oral route. docusate docusate No 1capsul BID docusate [facility] sodium 100 sodium 100 e(s) sodium 100 Medical mg capsule mg capsule mg capsule Take 1 Take 1 Take 1 capsule capsule capsule twice a day twice a day twice a by oral by oral day by route. route. oral route. finasteride finasteride No 1 Q1D finasterid [facility] 5 mg tablet 5 mg tablet e 5 mg Medical Take 1 Take 1 tablet tablet tablet Take 1 every day every day tablet by oral by oral every day route. route. by oral route. Flomax 0.4 Flomax 0.4 No 1capsul Q1D Flomax 0.4 [facility] mg capsule mg capsule e(s) mg capsule Medical Take 1 Take 1 Take 1 capsule capsule capsule every day every day every day by oral by oral by oral route. route. route. hydralazine hydralazine No 1 BID hydralazin [facility] 10 mg 10 mg e 10 mg Medical tablet Take tablet Take tablet 1 tablet 1 tablet Take 1 twice a day twice a day tablet by oral by oral twice a route. route. day by oral route. Lantus Lantus No 31unit( Q1D Lantus [facility] U-100 U-100 s) U-100 Medical Insulin 100 Insulin 100 Insulin unit/mL unit/mL 100 subcutaneou subcutaneou unit/mL s solution s solution subcutaneo Inject 31 Inject 31 us units every units every solution day by day by Inject 31 subcutaneou subcutaneou units s route in s route in every day the the by morning. morning. subcutaneo us route in the morning. lisinopril lisinopril No 1 Q1D lisinopril [facility] 5 mg tablet 5 mg tablet 5 mg M edical Take 1 Take 1 tablet tablet tablet Take 1 every day every day tablet by oral by oral every day route. route. by oral route. metformin metformin No 1 BID metformin [facility] 500 mg 500 mg 500 mg Medical tablet Take tablet Take tablet 1 tablet 1 tablet Take 1 twice a day twice a day tablet by oral by oral twice a route. route. day by oral route. Miralax 17 Miralax 17 No 1packet Q1D Miralax 17 [facility] gram oral gram oral (s) gram oral Medical powder powder powder packet Take packet Take packet 1 packet 1 packet Take 1 every day every day packet by oral by oral every day route as route as by oral needed. needed. route as needed. Seroquel Seroquel No Seroquel [facility] via 100 mg 100 mg 100 mg Medical tablet TAKE tablet TAKE tablet 1 TABLET 1 TABLET TAKE 1 EVERY EVERY TABLET MORNING AND MORNING AND EVERY 2 TABLETS 2 TABLETS MORNING AT BEDTIME. AT BEDTIME. AND 2 TABLETS AT BEDTIME. sertraline sertraline No 2 Q1D sertraline [facility] 100 mg 100 mg 100 mg Medical tablet Take tablet Take tablet 2 tablets 2 tablets Take 2 every day every day tablets by oral by oral every day route. route. by oral route. Tylenol 325 Tylenol 325 No 2capsul Q6H Tylenol [facility] mg capsule mg capsule e(s) 325 mg M edical Take 2 Take 2 capsule capsules capsules Take 2 every 6 every 6 capsules hours by hours by every 6 oral route oral route hours by as needed. as needed. oral route as needed. aspirin 81 aspirin 81 No 1 Q1D aspirin 81 [facility] mg mg mg Medical tablet,marty tablet,marty tablet,del yed release yed release ayed Take 1 Take 1 release tablet tablet Take 1 every day every day tablet by oral by oral every day route. route. by oral route. divalproex divalproex No 1 BID divalproex [facility] 500 mg 500 mg 500 mg Medical tablet,marty tablet,marty tablet,del yed release yed release ayed Take 1 Take 1 release tablet tablet Take 1 twice a day twice a day tablet by oral by oral twice a route. route. day by oral route. docusate docusate No 1capsul BID docusate [facility] sodium 100 sodium 100 e(s) sodium 100 Medical mg capsule mg capsule mg capsule Take 1 Take 1 Take 1 capsule capsule capsule twice a day twice a day twice a by oral by oral day by route. route. oral route. finasteride finasteride No 1 Q1D finasterid [facility] 5 mg tablet 5 mg tablet e 5 mg Medical Take 1 Take 1 tablet tablet tablet Take 1 every day every day tablet by oral by oral every day route. route. by oral route. Flomax 0.4 Flomax 0.4 No 1capsul Q1D Flomax 0.4 [facility] mg capsule mg capsule e(s) mg capsule Medical Take 1 Take 1 Take 1 capsule capsule capsule every day every day every day by oral by oral by oral route. route. route. hydralazine hydralazine No 1 BID hydralazin [facility] 10 mg 10 mg e 10 mg Medical tablet Take tablet Take tablet 1 tablet 1 tablet Take 1 twice a day twice a day tablet by oral by oral twice a route. route. day by oral route. Lantus Lantus No 31unit( Q1D Lantus [facility] U-100 U-100 s) U-100 [facility] Insulin 100 Insulin 100 Insulin unit/mL unit/mL 100 subcutaneou subcutaneou unit/mL s solution s solution subcutaneo Inject 31 Inject 31 us units every units every solution day by day by Inject 31 subcutaneou subcutaneou units s route in s route in every day the the by morning. morning. subcutaneo us route in the morning. lisinopril lisinopril No 1 Q1D lisinopril [facility] 5 mg tablet 5 mg tablet 5 mg M edical Take 1 Take 1 tablet tablet tablet Take 1 every day every day tablet by oral by oral every day route. route. by oral route. metformin metformin No 1 BID metformin [facility] 500 mg 500 mg 500 mg Medical tablet Take tablet Take tablet 1 tablet 1 tablet Take 1 twice a day twice a day tablet by oral by oral twice a route. route. day by oral route. Miralax 17 Miralax 17 No 1packet Q1D Miralax 17 [facility] gram oral gram oral (s) gram oral Medical powder powder powder packet Take packet Take packet 1 packet 1 packet Take 1 every day every day packet by oral by oral every day route as route as by oral needed. needed. route as needed. Seroquel Seroquel No Seroquel [facility] via 100 mg 100 mg 100 mg Medical tablet TAKE tablet TAKE tablet 1 TABLET 1 TABLET TAKE 1 EVERY EVERY TABLET MORNING AND MORNING AND EVERY 2 TABLETS 2 TABLETS MORNING AT BEDTIME. AT BEDTIME. AND 2 TABLETS AT BEDTIME. sertraline sertraline No 2 Q1D sertraline [facility] 100 mg 100 mg 100 mg Medical tablet Take tablet Take tablet 2 tablets 2 tablets Take 2 every day every day tablets by oral by oral every day route. route. by oral route. Tylenol 325 Tylenol 325 No 2capsul Q6H Tylenol [facility] mg capsule mg capsule e(s) 325 mg M edical Take 2 Take 2 capsule capsules capsules Take 2 every 6 every 6 capsules hours by hours by every 6 oral route oral route hours by as needed. as needed. oral route as needed. aspirin 81 aspirin 81 No 1 Q1D aspirin 81 [facility] mg mg mg Medical tablet,marty tablet,marty tablet,del yed release yed release ayed Take 1 Take 1 release tablet tablet Take 1 every day every day tablet by oral by oral every day route. route. by oral route. divalproex divalproex No 1 BID divalproex [facility] 500 mg 500 mg 500 mg Medical tablet,marty tablet,marty tablet,del yed release yed release ayed Take 1 Take 1 release tablet tablet Take 1 twice a day twice a day tablet by oral by oral twice a route. route. day by oral route. docusate docusate No 1capsul BID docusate [facility] sodium 100 sodium 100 e(s) sodium 100 Medical mg capsule mg capsule mg capsule Take 1 Take 1 Take 1 capsule capsule capsule twice a day twice a day twice a by oral by oral day by route. route. oral route. finasteride finasteride No 1 Q1D finasterid [facility] 5 mg tablet 5 mg tablet e 5 mg Medical Take 1 Take 1 tablet tablet tablet Take 1 every day every day tablet by oral by oral every day route. route. by oral route. Flomax 0.4 Flomax 0.4 No 1capsul Q1D Flomax 0.4 [facility] mg capsule mg capsule e(s) mg capsule Medical Take 1 Take 1 Take 1 capsule capsule capsule every day every day every day by oral by oral by oral route. route. route. hydralazine hydralazine No 1 BID hydralazin [facility] 10 mg 10 mg e 10 mg Medical tablet Take tablet Take tablet 1 tablet 1 tablet Take 1 twice a day twice a day tablet by oral by oral twice a route. route. day by oral route. Lantus Lantus No 31unit( Q1D Lantus [facility] U-100 U-100 s) U-100 [facility] Insulin 100 Insulin 100 Insulin unit/mL unit/mL 100 subcutaneou subcutaneou unit/mL s solution s solution subcutaneo Inject 31 Inject 31 us units every units every solution day by day by Inject 31 subcutaneou subcutaneou units s route in s route in every day the the by morning. morning. subcutaneo us route in the morning. lisinopril lisinopril No 1 Q1D lisinopril [facility] 5 mg tablet 5 mg tablet 5 mg M edical Take 1 Take 1 tablet tablet tablet Take 1 every day every day tablet by oral by oral every day route. route. by oral route. metformin metformin No 1 BID metformin [facility] 500 mg 500 mg 500 mg Medical tablet Take tablet Take tablet 1 tablet 1 tablet Take 1 twice a day twice a day tablet by oral by oral twice a route. route. day by oral route. Miralax 17 Miralax 17 No 1packet Q1D Miralax 17 [facility] gram oral gram oral (s) gram oral Medical powder powder powder packet Take packet Take packet 1 packet 1 packet Take 1 every day every day packet by oral by oral every day route as route as by oral needed. needed. route as needed. Seroquel Seroquel No Seroquel [facility] via 100 mg 100 mg 100 mg Medical tablet TAKE tablet TAKE tablet 1 TABLET 1 TABLET TAKE 1 EVERY EVERY TABLET MORNING AND MORNING AND EVERY 2 TABLETS 2 TABLETS MORNING AT BEDTIME. AT BEDTIME. AND 2 TABLETS AT BEDTIME. sertraline sertraline No 2 Q1D sertraline [facility] 100 mg 100 mg 100 mg Medical tablet Take tablet Take tablet 2 tablets 2 tablets Take 2 every day every day tablets by oral by oral every day route. route. by oral route. Tylenol 325 Tylenol 325 No 2capsul Q6H Tylenol [facility] mg capsule mg capsule e(s) 325 mg M edical Take 2 Take 2 capsule capsules capsules Take 2 every 6 every 6 capsules hours by hours by every 6 oral route oral route hours by as needed. as needed. oral route as needed. aspirin 81 aspirin 81 No 1 Q1D aspirin 81 [facility] mg mg mg Medical tablet,marty tablet,marty tablet,del yed release yed release ayed Take 1 Take 1 release tablet tablet Take 1 every day every day tablet by oral by oral every day route. route. by oral route. divalproex divalproex No 1 BID divalproex [facility] 500 mg 500 mg 500 mg Medical tablet,marty tablet,marty tablet,del yed release yed release ayed Take 1 Take 1 release tablet tablet Take 1 twice a day twice a day tablet by oral by oral twice a route. route. day by oral route. docusate docusate No 1capsul BID docusate [facility] sodium 100 sodium 100 e(s) sodium 100 Medical mg capsule mg capsule mg capsule Take 1 Take 1 Take 1 capsule capsule capsule twice a day twice a day twice a by oral by oral day by route. route. oral route. finasteride finasteride No 1 Q1D finasterid [facility] 5 mg tablet 5 mg tablet e 5 mg Medical Take 1 Take 1 tablet tablet tablet Take 1 every day every day tablet by oral by oral every day route. route. by oral route. Flomax 0.4 Flomax 0.4 No 1capsul Q1D Flomax 0.4 [facility] mg capsule mg capsule e(s) mg capsule Medical Take 1 Take 1 Take 1 capsule capsule capsule every day every day every day by oral by oral by oral route. route. route. hydralazine hydralazine No 1 BID hydralazin [facility] 10 mg 10 mg e 10 mg Medical tablet Take tablet Take tablet 1 tablet 1 tablet Take 1 twice a day twice a day tablet by oral by oral twice a route. route. day by oral route. Lantus Lantus No 31unit( Q1D Lantus [facility] U-100 U-100 s) U-100 [facility] Insulin 100 Insulin 100 Insulin unit/mL unit/mL 100 subcutaneou subcutaneou unit/mL s solution s solution subcutaneo Inject 31 Inject 31 us units every units every solution day by day by Inject 31 subcutaneou subcutaneou units s route in s route in every day the the by morning. morning. subcutaneo us route in the morning. lisinopril lisinopril No 1 Q1D lisinopril [facility] 5 mg tablet 5 mg tablet 5 mg M edical Take 1 Take 1 tablet tablet tablet Take 1 every day every day tablet by oral by oral every day route. route. by oral route. metformin metformin No 1 BID metformin [facility] 500 mg 500 mg 500 mg Medical tablet Take tablet Take tablet 1 tablet 1 tablet Take 1 twice a day twice a day tablet by oral by oral twice a route. route. day by oral route. Miralax 17 Miralax 17 No 1packet Q1D Miralax 17 [facility] gram oral gram oral (s) gram oral Medical powder powder powder packet Take packet Take packet 1 packet 1 packet Take 1 every day every day packet by oral by oral every day route as route as by oral needed. needed. route as needed. Seroquel Seroquel No Seroquel [facility] via 100 mg 100 mg 100 mg Medical tablet TAKE tablet TAKE tablet 1 TABLET 1 TABLET TAKE 1 EVERY EVERY TABLET MORNING AND MORNING AND EVERY 2 TABLETS 2 TABLETS MORNING AT BEDTIME. AT BEDTIME. AND 2 TABLETS AT BEDTIME. sertraline sertraline No 2 Q1D sertraline [facility] 100 mg 100 mg 100 mg Medical tablet Take tablet Take tablet 2 tablets 2 tablets Take 2 every day every day tablets by oral by oral every day route. route. by oral route. Tylenol 325 Tylenol 325 No 2capsul Q6H Tylenol [facility] mg capsule mg capsule e(s) 325 mg M edical Take 2 Take 2 capsule capsules capsules Take 2 every 6 every 6 capsules hours by hours by every 6 oral route oral route hours by as needed. as needed. oral route as needed. aspirin 81 aspirin 81 No 1 Q1D aspirin 81 [facility] mg mg mg Medical tablet,marty tablet,marty tablet,del yed release yed release ayed Take 1 Take 1 release tablet tablet Take 1 every day every day tablet by oral by oral every day route. route. by oral route. divalproex divalproex No 1 BID divalproex [facility] 500 mg 500 mg 500 mg Medical tablet,marty tablet,marty tablet,del yed release yed release ayed Take 1 Take 1 release tablet tablet Take 1 twice a day twice a day tablet by oral by oral twice a route. route. day by oral route. docusate docusate No 1capsul BID docusate [facility] sodium 100 sodium 100 e(s) sodium 100 Medical mg capsule mg capsule mg capsule Take 1 Take 1 Take 1 capsule capsule capsule twice a day twice a day twice a by oral by oral day by route. route. oral route. finasteride finasteride No 1 Q1D finasterid [facility] 5 mg tablet 5 mg tablet e 5 mg Medical Take 1 Take 1 tablet tablet tablet Take 1 every day every day tablet by oral by oral every day route. route. by oral route. Flomax 0.4 Flomax 0.4 No 1capsul Q1D Flomax 0.4 [facility] mg capsule mg capsule e(s) mg capsule Medical Take 1 Take 1 Take 1 capsule capsule capsule every day every day every day by oral by oral by oral route. route. route. hydralazine hydralazine No 1 BID hydralazin [facility] 10 mg 10 mg e 10 mg Medical tablet Take tablet Take tablet 1 tablet 1 tablet Take 1 twice a day twice a day tablet by oral by oral twice a route. route. day by oral route. Lantus Lantus No 31unit( Q1D Lantus [facility] U-100 U-100 s) U-100 [facility] Insulin 100 Insulin 100 Insulin unit/mL unit/mL 100 subcutaneou subcutaneou unit/mL s solution s solution subcutaneo Inject 31 Inject 31 us units every units every solution day by day by Inject 31 subcutaneou subcutaneou units s route in s route in every day the the by morning. morning. subcutaneo us route in the morning. lisinopril lisinopril No 1 Q1D lisinopril [facility] 5 mg tablet 5 mg tablet 5 mg M edical Take 1 Take 1 tablet tablet tablet Take 1 every day every day tablet by oral by oral every day route. route. by oral route. metformin metformin No 1 BID metformin [facility] 500 mg 500 mg 500 mg Medical tablet Take tablet Take tablet 1 tablet 1 tablet Take 1 twice a day twice a day tablet by oral by oral twice a route. route. day by oral route. Miralax 17 Miralax 17 No 1packet Q1D Miralax 17 [facility] gram oral gram oral (s) gram oral Medical powder powder powder packet Take packet Take packet 1 packet 1 packet Take 1 every day every day packet by oral by oral every day route as route as by oral needed. needed. route as needed. Seroquel Seroquel No Seroquel [facility] via 100 mg 100 mg 100 mg Medical tablet TAKE tablet TAKE tablet 1 TABLET 1 TABLET TAKE 1 EVERY EVERY TABLET MORNING AND MORNING AND EVERY 2 TABLETS 2 TABLETS MORNING AT BEDTIME. AT BEDTIME. AND 2 TABLETS AT BEDTIME. sertraline sertraline No 2 Q1D sertraline [facility] 100 mg 100 mg 100 mg Medical tablet Take tablet Take tablet 2 tablets 2 tablets Take 2 every day every day tablets by oral by oral every day route. route. by oral route. Tylenol 325 Tylenol 325 No 2capsul Q6H Tylenol [facility] mg capsule mg capsule e(s) 325 mg M edical Take 2 Take 2 capsule capsules capsules Take 2 every 6 every 6 capsules hours by hours by every 6 oral route oral route hours by as needed. as needed. oral route as needed. aspirin 81 aspirin 81 No 1 Q1D aspirin 81 [facility] mg mg mg Medical tablet,marty tablet,marty tablet,del yed release yed release ayed Take 1 Take 1 release tablet tablet Take 1 every day every day tablet by oral by oral every day route. route. by oral route. divalproex divalproex No 1 BID divalproex [facility] 500 mg 500 mg 500 mg Medical tablet,marty tablet,marty tablet,del yed release yed release ayed Take 1 Take 1 release tablet tablet Take 1 twice a day twice a day tablet by oral by oral twice a route. route. day by oral route. docusate docusate No 1capsul BID docusate [facility] sodium 100 sodium 100 e(s) sodium 100 Medical mg capsule mg capsule mg capsule Take 1 Take 1 Take 1 capsule capsule capsule twice a day twice a day twice a by oral by oral day by route. route. oral route. finasteride finasteride No 1 Q1D finasterid [facility] 5 mg tablet 5 mg tablet e 5 mg Medical Take 1 Take 1 tablet tablet tablet Take 1 every day every day tablet by oral by oral every day route. route. by oral route. Flomax 0.4 Flomax 0.4 No 1capsul Q1D Flomax 0.4 [facility] mg capsule mg capsule e(s) mg capsule Medical Take 1 Take 1 Take 1 capsule capsule capsule every day every day every day by oral by oral by oral route. route. route. hydralazine hydralazine No 1 BID hydralazin [facility] 10 mg 10 mg e 10 mg Medical tablet Take tablet Take tablet 1 tablet 1 tablet Take 1 twice a day twice a day tablet by oral by oral twice a route. route. day by oral route. Lantus Lantus No 31unit( Q1D Lantus [facility] U-100 U-100 s) U-100 [facility] Insulin 100 Insulin 100 Insulin unit/mL unit/mL 100 subcutaneou subcutaneou unit/mL s solution s solution subcutaneo Inject 31 Inject 31 us units every units every solution day by day by Inject 31 subcutaneou subcutaneou units s route in s route in every day the the by morning. morning. subcutaneo us route in the morning. lisinopril lisinopril No 1 Q1D lisinopril [facility] 5 mg tablet 5 mg tablet 5 mg M edical Take 1 Take 1 tablet tablet tablet Take 1 every day every day tablet by oral by oral every day route. route. by oral route. metformin metformin No 1 BID metformin [facility] 500 mg 500 mg 500 mg Medical tablet Take tablet Take tablet 1 tablet 1 tablet Take 1 twice a day twice a day tablet by oral by oral twice a route. route. day by oral route. Miralax 17 Miralax 17 No 1packet Q1D Miralax 17 [facility] gram oral gram oral (s) gram oral Medical powder powder powder packet Take packet Take packet 1 packet 1 packet Take 1 every day every day packet by oral by oral every day route as route as by oral needed. needed. route as needed. Seroquel Seroquel No Seroquel [facility] via 100 mg 100 mg 100 mg Medical tablet TAKE tablet TAKE tablet 1 TABLET 1 TABLET TAKE 1 EVERY EVERY TABLET MORNING AND MORNING AND EVERY 2 TABLETS 2 TABLETS MORNING AT BEDTIME. AT BEDTIME. AND 2 TABLETS AT BEDTIME. sertraline sertraline No 2 Q1D sertraline [facility] 100 mg 100 mg 100 mg Medical tablet Take tablet Take tablet 2 tablets 2 tablets Take 2 every day every day tablets by oral by oral every day route. route. by oral route. Tylenol 325 Tylenol 325 No 2capsul Q6H Tylenol [facility] mg capsule mg capsule e(s) 325 mg M edical Take 2 Take 2 capsule capsules capsules Take 2 every 6 every 6 capsules hours by hours by every 6 oral route oral route hours by as needed. as needed. oral route as needed. aspirin 81 aspirin 81 No 1 Q1D aspirin 81 [facility] mg mg mg Medical tablet,marty tablet,marty tablet,del yed release yed release ayed Take 1 Take 1 release tablet tablet Take 1 every day every day tablet by oral by oral every day route. route. by oral route. divalproex divalproex No 1 BID divalproex [facility] 500 mg 500 mg 500 mg Medical tablet,marty tablet,marty tablet,del yed release yed release ayed Take 1 Take 1 release tablet tablet Take 1 twice a day twice a day tablet by oral by oral twice a route. route. day by oral route. docusate docusate No 1capsul BID docusate [facility] sodium 100 sodium 100 e(s) sodium 100 Medical mg capsule mg capsule mg capsule Take 1 Take 1 Take 1 capsule capsule capsule twice a day twice a day twice a by oral by oral day by route. route. oral route. finasteride finasteride No 1 Q1D finasterid [facility] 5 mg tablet 5 mg tablet e 5 mg Medical Take 1 Take 1 tablet tablet tablet Take 1 every day every day tablet by oral by oral every day route. route. by oral route. Flomax 0.4 Flomax 0.4 No 1capsul Q1D Flomax 0.4 [facility] mg capsule mg capsule e(s) mg capsule Medical Take 1 Take 1 Take 1 capsule capsule capsule every day every day every day by oral by oral by oral route. route. route. hydralazine hydralazine No 1 BID hydralazin [facility] 10 mg 10 mg e 10 mg Medical tablet Take tablet Take tablet 1 tablet 1 tablet Take 1 twice a day twice a day tablet by oral by oral twice a route. route. day by oral route. Lantus Lantus No 31unit( Q1D Lantus [facility] U-100 U-100 s) U-100 [facility] Insulin 100 Insulin 100 Insulin unit/mL unit/mL 100 subcutaneou subcutaneou unit/mL s solution s solution subcutaneo Inject 31 Inject 31 us units every units every solution day by day by Inject 31 subcutaneou subcutaneou units s route in s route in every day the the by morning. morning. subcutaneo us route in the morning. lisinopril lisinopril No 1 Q1D lisinopril [facility] 5 mg tablet 5 mg tablet 5 mg M edical Take 1 Take 1 tablet tablet tablet Take 1 every day every day tablet by oral by oral every day route. route. by oral route. metformin metformin No 1 BID metformin [facility] 500 mg 500 mg 500 mg Medical tablet Take tablet Take tablet 1 tablet 1 tablet Take 1 twice a day twice a day tablet by oral by oral twice a route. route. day by oral route. Miralax 17 Miralax 17 No 1packet Q1D Miralax 17 [facility] gram oral gram oral (s) gram oral Medical powder powder powder packet Take packet Take packet 1 packet 1 packet Take 1 every day every day packet by oral by oral every day route as route as by oral needed. needed. route as needed. Seroquel Seroquel No Seroquel [facility] via 100 mg 100 mg 100 mg [facility] tablet TAKE tablet TAKE tablet 1 TABLET 1 TABLET TAKE 1 EVERY EVERY TABLET MORNING AND MORNING AND EVERY 2 TABLETS 2 TABLETS MORNING AT BEDTIME. AT BEDTIME. AND 2 TABLETS AT BEDTIME. sertraline sertraline No 2 Q1D sertraline [facility] 100 mg 100 mg 100 mg Medical tablet Take tablet Take tablet 2 tablets 2 tablets Take 2 every day every day tablets by oral by oral every day route. route. by oral route. Tylenol 325 Tylenol 325 No 2capsul Q6H Tylenol [facility] mg capsule mg capsule e(s) 325 mg M edical Take 2 Take 2 capsule capsules capsules Take 2 every 6 every 6 capsules hours by hours by every 6 oral route oral route hours by as needed. as needed. oral route as needed. aspirin 81 aspirin 81 No 1 Q1D aspirin 81 [facility] mg mg mg Medical tablet,marty tablet,marty tablet,del yed release yed release ayed Take 1 Take 1 release tablet tablet Take 1 every day every day tablet by oral by oral every day route. route. by oral route. docusate docusate No 1capsul BID docusate [facility] sodium 100 sodium 100 e(s) sodium 100 Medical mg capsule mg capsule mg capsule Take 1 Take 1 Take 1 capsule capsule capsule twice a day twice a day twice a by oral by oral day by route. route. oral route. finasteride finasteride No 1 Q1D finasterid [facility] 5 mg tablet 5 mg tablet e 5 mg Medical Take 1 Take 1 tablet tablet tablet Take 1 every day every day tablet by oral by oral every day route. route. by oral route. Flomax 0.4 Flomax 0.4 No 1capsul Q1D Flomax 0.4 [facility] mg capsule mg capsule e(s) mg capsule Medical Take 1 Take 1 Take 1 capsule capsule capsule every day every day every day by oral by oral by oral route. route. route. hydralazine hydralazine No 1 BID hydralazin [facility] 10 mg 10 mg e 10 mg Medical tablet Take tablet Take tablet 1 tablet 1 tablet Take 1 twice a day twice a day tablet by oral by oral twice a route. route. day by oral route. Lantus Lantus No 31unit( Q1D Lantus [facility] U-100 U-100 s) U-100 Medical Insulin 100 Insulin 100 Insulin unit/mL unit/mL 100 subcutaneou subcutaneou unit/mL s solution s solution subcutaneo Inject 31 Inject 31 us units every units every solution day by day by Inject 31 subcutaneou subcutaneou units s route in s route in every day the the by morning. morning. subcutaneo us route in the morning. lisinopril lisinopril No 1 Q1D lisinopril [facility] 5 mg tablet 5 mg tablet 5 mg M edical Take 1 Take 1 tablet tablet tablet Take 1 every day every day tablet by oral by oral every day route. route. by oral route. metformin metformin No 1 BID metformin [facility] 500 mg 500 mg 500 mg [facility] tablet Take tablet Take tablet 1 tablet 1 tablet Take 1 twice a day twice a day tablet by oral by oral twice a route. route. day by oral route. Miralax 17 Miralax 17 No 1packet Q1D Miralax 17 [facility] gram oral gram oral (s) gram oral Medical powder powder powder packet Take packet Take packet 1 packet 1 packet Take 1 every day every day packet by oral by oral every day route as route as by oral needed. needed. route as needed. Seroquel Seroquel No Seroquel [facility] via 100 mg 100 mg 100 mg [facility] tablet TAKE tablet TAKE tablet 1 TABLET 1 TABLET TAKE 1 EVERY EVERY TABLET MORNING AND MORNING AND EVERY 2 TABLETS 2 TABLETS MORNING AT BEDTIME. AT BEDTIME. AND 2 TABLETS AT BEDTIME. sertraline sertraline No 2 Q1D sertraline [facility] 100 mg 100 mg 100 mg Medical tablet Take tablet Take tablet 2 tablets 2 tablets Take 2 every day every day tablets by oral by oral every day route. route. by oral route. Tylenol 325 Tylenol 325 No 2capsul Q6H Tylenol [facility] mg capsule mg capsule e(s) 325 mg M edical Take 2 Take 2 capsule capsules capsules Take 2 every 6 every 6 capsules hours by hours by every 6 oral route oral route hours by as needed. as needed. oral route as needed. aspirin 81 aspirin 81 No 1 Q1D aspirin 81 [facility] mg mg mg Medical tablet,marty tablet,marty tablet,del yed release yed release ayed Take 1 Take 1 release tablet tablet Take 1 every day every day tablet by oral by oral every day route. route. by oral route. Depakote Depakote No 2capsul BID Depakote [facility] Sprinkles Sprinkles e(s) Sprinkles [facility] 125 mg 125 mg 125 mg capsule,del capsule,del capsule,de ayed ayed layed release release release Take 2 Take 2 Take 2 capsules capsules capsules twice a day twice a day twice a by oral by oral day by route. route. oral route. docusate docusate No 1capsul BID docusate [facility] sodium 100 sodium 100 e(s) sodium 100 Medical mg capsule mg capsule mg capsule Take 1 Take 1 Take 1 capsule capsule capsule twice a day twice a day twice a by oral by oral day by route. route. oral route. finasteride finasteride No 1 Q1D finasterid [facility] 5 mg tablet 5 mg tablet e 5 mg Medical Take 1 Take 1 tablet tablet tablet Take 1 every day every day tablet by oral by oral every day route. route. by oral route. aspirin 81 aspirin 81 No 1 Q1D aspirin 81 [facility] mg mg mg Medical tablet,marty tablet,marty tablet,del yed release yed release ayed Take 1 Take 1 release tablet tablet Take 1 every day every day tablet by oral by oral every day route. route. by oral route. Flomax 0.4 Flomax 0.4 No 1capsul Q1D Flomax 0.4 [facility] mg capsule mg capsule e(s) mg capsule Medical Take 1 Take 1 Take 1 capsule capsule capsule every day every day every day by oral by oral by oral route. route. route. docusate docusate No 1capsul BID docusate [facility] sodium 100 sodium 100 e(s) sodium 100 Medical mg capsule mg capsule mg capsule Take 1 Take 1 Take 1 capsule capsule capsule twice a day twice a day twice a by oral by oral day by route. route. oral route. finasteride finasteride No 1 Q1D finasterid [facility] 5 mg tablet 5 mg tablet e 5 mg Medical Take 1 Take 1 tablet tablet tablet Take 1 every day every day tablet by oral by oral every day route. route. by oral route. Flomax 0.4 Flomax 0.4 No 1capsul Q1D Flomax 0.4 [facility] mg capsule mg capsule e(s) mg capsule Medical Take 1 Take 1 Take 1 capsule capsule capsule every day every day every day by oral by oral by oral route. route. route. gabapentin gabapentin No gabapentin [facility] 100 mg 100 mg 100 mg Medical capsule capsule capsule hydralazine hydralazine No 1 BID hydralazin [facility] 10 mg 10 mg e 10 mg Medical tablet Take tablet Take tablet 1 tablet 1 tablet Take 1 twice a day twice a day tablet by oral by oral twice a route. route. day by oral route. Lantus Lantus No 31unit( Q1D Lantus [facility] U-100 U-100 s) U-100 [facility] Insulin 100 Insulin 100 Insulin unit/mL unit/mL 100 subcutaneou subcutaneou unit/mL s solution s solution subcutaneo Inject 31 Inject 31 us units every units every solution day by day by Inject 31 subcutaneou subcutaneou units s route in s route in every day the the by morning. morning. subcutaneo us route in the morning. lisinopril lisinopril No 1 Q1D lisinopril [facility] 5 mg tablet 5 mg tablet 5 mg M edical Take 1 Take 1 tablet tablet tablet Take 1 every day every day tablet by oral by oral every day route. route. by oral route. metformin metformin No 1 BID metformin [facility] 500 mg 500 mg 500 mg Medical tablet Take tablet Take tablet 1 tablet 1 tablet Take 1 twice a day twice a day tablet by oral by oral twice a route. route. day by oral route. Miralax 17 Miralax 17 No 1packet Q1D Miralax 17 [facility] gram oral gram oral (s) gram oral Medical powder powder powder packet Take packet Take packet 1 packet 1 packet Take 1 every day every day packet by oral by oral every day route as route as by oral needed. needed. route as needed. hydralazine hydralazine No 1 BID hydralazin [facility] 10 mg 10 mg e 10 mg Medical tablet Take tablet Take tablet 1 tablet 1 tablet Take 1 twice a day twice a day tablet by oral by oral twice a route. route. day by oral route. Seroquel Seroquel No Seroquel [facility] via 100 mg 100 mg 100 mg Medical tablet TAKE tablet TAKE tablet 1 TABLET 1 TABLET TAKE 1 EVERY EVERY TABLET MORNING AND MORNING AND EVERY 2 TABLETS 2 TABLETS MORNING AT BEDTIME. AT BEDTIME. AND 2 TABLETS AT BEDTIME. sertraline sertraline No 2 Q1D sertraline [facility] 100 mg 100 mg 100 mg Medical tablet Take tablet Take tablet 2 tablets 2 tablets Take 2 every day every day tablets by oral by oral every day route. route. by oral route. Tylenol 325 Tylenol 325 No 2capsul Q6H Tylenol [facility] mg capsule mg capsule e(s) 325 mg M edical Take 2 Take 2 capsule capsules capsules Take 2 every 6 every 6 capsules hours by hours by every 6 oral route oral route hours by as needed. as needed. oral route as needed. Lantus Lantus No 29unit( Q1D Lantus [facility] U-100 U-100 s) U-100 [facility] Insulin 100 Insulin 100 Insulin unit/mL unit/mL 100 subcutaneou subcutaneou unit/mL s solution s solution subcutaneo Inject 29 Inject 29 us units every units every solution day by day by Inject 29 subcutaneou subcutaneou units s route in s route in every day the the by morning. morning. subcutaneo us route in the morning. lisinopril lisinopril No 1 Q1D lisinopril [facility] 5 mg tablet 5 mg tablet 5 mg M edical Take 1 Take 1 tablet tablet tablet Take 1 every day every day tablet by oral by oral every day route. route. by oral route. aspirin 81 aspirin 81 No 1 Q1D aspirin 81 [facility] mg mg mg Medical tablet,marty tablet,marty tablet,del yed release yed release ayed Take 1 Take 1 release tablet tablet Take 1 every day every day tablet by oral by oral every day route. route. by oral route. docusate docusate No 1capsul BID docusate [facility] sodium 100 sodium 100 e(s) sodium 100 Medical mg capsule mg capsule mg capsule Take 1 Take 1 Take 1 capsule capsule capsule twice a day twice a day twice a by oral by oral day by route. route. oral route. finasteride finasteride No 1 Q1D finasterid [facility] 5 mg tablet 5 mg tablet e 5 mg Medical Take 1 Take 1 tablet tablet tablet Take 1 every day every day tablet by oral by oral every day route. route. by oral route. Flomax 0.4 Flomax 0.4 No 1capsul Q1D Flomax 0.4 [facility] mg capsule mg capsule e(s) mg capsule Medical Take 1 Take 1 Take 1 capsule capsule capsule every day every day every day by oral by oral by oral route. route. route. gabapentin gabapentin No gabapentin [facility] 100 mg 100 mg 100 mg Medical capsule capsule capsule hydralazine hydralazine No 1 BID hydralazin [facility] 10 mg 10 mg e 10 mg Medical tablet Take tablet Take tablet 1 tablet 1 tablet Take 1 twice a day twice a day tablet by oral by oral twice a route. route. day by oral route. Lantus Lantus No 31unit( Q1D Lantus [facility] U-100 U-100 s) U-100 [facility] Insulin 100 Insulin 100 Insulin unit/mL unit/mL 100 subcutaneou subcutaneou unit/mL s solution s solution subcutaneo Inject 31 Inject 31 us units every units every solution day by day by Inject 31 subcutaneou subcutaneou units s route in s route in every day the the by morning. morning. subcutaneo us route in the morning. lisinopril lisinopril No 1 Q1D lisinopril [facility] 5 mg tablet 5 mg tablet 5 mg M edical Take 1 Take 1 tablet tablet tablet Take 1 every day every day tablet by oral by oral every day route. route. by oral route. Miralax 17 Miralax 17 No 1packet Q1D Miralax 17 [facility] gram oral gram oral (s) gram oral Medical powder powder powder packet Take packet Take packet 1 packet 1 packet Take 1 every day every day packet by oral by oral every day route as route as by oral needed. needed. route as needed. metformin metformin No 1 BID metformin [facility] 500 mg 500 mg 500 mg Medical tablet Take tablet Take tablet 1 tablet 1 tablet Take 1 twice a day twice a day tablet by oral by oral twice a route. route. day by oral route. Miralax 17 Miralax 17 No 1packet Q1D Miralax 17 [facility] gram oral gram oral (s) gram oral Medical powder powder powder packet Take packet Take packet 1 packet 1 packet Take 1 every day every day packet by oral by oral every day route as route as by oral needed. needed. route as needed. Seroquel Seroquel No Seroquel [facility] via 100 mg 100 mg 100 mg Medical tablet TAKE tablet TAKE tablet 1 TABLET 1 TABLET TAKE 1 EVERY EVERY TABLET MORNING AND MORNING AND EVERY 2 TABLETS 2 TABLETS MORNING AT BEDTIME. AT BEDTIME. AND 2 TABLETS AT BEDTIME. sertraline sertraline No 2 Q1D sertraline [facility] 100 mg 100 mg 100 mg Medical tablet Take tablet Take tablet 2 tablets 2 tablets Take 2 every day every day tablets by oral by oral every day route. route. by oral route. Tylenol 325 Tylenol 325 No 2capsul Q6H Tylenol [facility] mg capsule mg capsule e(s) 325 mg M edical Take 2 Take 2 capsule capsules capsules Take 2 every 6 every 6 capsules hours by hours by every 6 oral route oral route hours by as needed. as needed. oral route as needed. Seroquel Seroquel No 1 BID Seroquel [facility] via 100 mg 100 mg 100 mg Medical tablet Take tablet Take tablet 1 tablet 1 tablet Take 1 twice a day twice a day tablet by oral by oral twice a route. route. day by oral route. sertraline sertraline No 2 Q1D sertraline [facility] 100 mg 100 mg 100 mg Medical tablet Take tablet Take tablet 2 tablets 2 tablets Take 2 every day every day tablets by oral by oral every day route. route. by oral route. Tradjenta 5 Tradjenta 5 No 1 Q1D Tradjenta [facility] mg tablet mg tablet 5 mg Medic al Take 1 Take 1 tablet tablet tablet Take 1 every day every day tablet by oral by oral every day route. route. by oral route. Tylenol 325 Tylenol 325 No 2capsul Q6H Tylenol [facility] mg capsule mg capsule e(s) 325 mg M edical Take 2 Take 2 capsule capsules capsules Take 2 every 6 every 6 capsules hours by hours by every 6 oral route oral route hours by as needed. as needed. oral route as needed. aspirin 81 aspirin 81 No 1 Q1D aspirin 81 [facility] mg mg mg Medical tablet,marty tablet,marty tablet,del yed release yed release ayed Take 1 Take 1 release tablet tablet Take 1 every day every day tablet by oral by oral every day route. route. by oral route. Depakote Depakote No 2capsul BID Depakote [facility] Sprinkles Sprinkles e(s) Sprinkles [facility] 125 mg 125 mg 125 mg capsule,del capsule,del capsule,de ayed ayed layed release release release Take 2 Take 2 Take 2 capsules capsules capsules twice a day twice a day twice a by oral by oral day by route. route. oral route. docusate docusate No 1capsul BID docusate [facility] sodium 100 sodium 100 e(s) sodium 100 Medical mg capsule mg capsule mg capsule Take 1 Take 1 Take 1 capsule capsule capsule twice a day twice a day twice a by oral by oral day by route. route. oral route. finasteride finasteride No 1 Q1D finasterid [facility] 5 mg tablet 5 mg tablet e 5 mg Medical Take 1 Take 1 tablet tablet tablet Take 1 every day every day tablet by oral by oral every day route. route. by oral route. Flomax 0.4 Flomax 0.4 No 1capsul Q1D Flomax 0.4 [facility] mg capsule mg capsule e(s) mg capsule Medical Take 1 Take 1 Take 1 capsule capsule capsule every day every day every day by oral by oral by oral route. route. route. hydralazine hydralazine No 1 BID hydralazin [facility] 10 mg 10 mg e 10 mg Medical tablet Take tablet Take tablet 1 tablet 1 tablet Take 1 twice a day twice a day tablet by oral by oral twice a route. route. day by oral route. Lantus Lantus No 29unit( Q1D Lantus [facility] U-100 U-100 s) U-100 [facility] Insulin 100 Insulin 100 Insulin unit/mL unit/mL 100 subcutaneou subcutaneou unit/mL s solution s solution subcutaneo Inject 29 Inject 29 us units every units every solution day by day by Inject 29 subcutaneou subcutaneou units s route in s route in every day the the by morning. morning. subcutaneo us route in the morning. lisinopril lisinopril No 1 Q1D lisinopril [facility] 5 mg tablet 5 mg tablet 5 mg M edical Take 1 Take 1 tablet tablet tablet Take 1 every day every day tablet by oral by oral every day route. route. by oral route. Miralax 17 Miralax 17 No 1packet Q1D Miralax 17 [facility] gram oral gram oral (s) gram oral Medical powder powder powder packet Take packet Take packet 1 packet 1 packet Take 1 every day every day packet by oral by oral every day route as route as by oral needed. needed. route as needed. Seroquel Seroquel No 1 BID Seroquel [facility] via 100 mg 100 mg 100 mg Medical tablet Take tablet Take tablet 1 tablet 1 tablet Take 1 twice a day twice a day tablet by oral by oral twice a route. route. day by oral route. sertraline sertraline No 2 Q1D sertraline [facility] 100 mg 100 mg 100 mg Medical tablet Take tablet Take tablet 2 tablets 2 tablets Take 2 every day every day tablets by oral by oral every day route. route. by oral route. Tradjenta 5 Tradjenta 5 No 1 Q1D Tradjenta [facility] mg tablet mg tablet 5 mg Medic al Take 1 Take 1 tablet tablet tablet Take 1 every day every day tablet by oral by oral every day route. route. by oral route. Tylenol 325 Tylenol 325 No 2capsul Q6H Tylenol [facility] mg capsule mg capsule e(s) 325 mg M edical Take 2 Take 2 capsule capsules capsules Take 2 every 6 every 6 capsules hours by hours by every 6 oral route oral route hours by as needed. as needed. oral route as needed. aspirin 81 aspirin 81 No 1 Q1D aspirin 81 [facility] mg mg mg Medical tablet,marty tablet,marty tablet,del yed release yed release ayed Take 1 Take 1 release tablet tablet Take 1 every day every day tablet by oral by oral every day route. route. by oral route. Depakote Depakote No 2capsul BID Depakote [facility] Sprinkles Sprinkles e(s) Sprinkles [facility] 125 mg 125 mg 125 mg capsule,del capsule,del capsule,de ayed ayed layed release release release Take 2 Take 2 Take 2 capsules capsules capsules twice a day twice a day twice a by oral by oral day by route. route. oral route. docusate docusate No 1capsul BID docusate [facility] sodium 100 sodium 100 e(s) sodium 100 Medical mg capsule mg capsule mg capsule Take 1 Take 1 Take 1 capsule capsule capsule twice a day twice a day twice a by oral by oral day by route. route. oral route. finasteride finasteride No 1 Q1D finasterid [facility] 5 mg tablet 5 mg tablet e 5 mg Medical Take 1 Take 1 tablet tablet tablet Take 1 every day every day tablet by oral by oral every day route. route. by oral route. Flomax 0.4 Flom[facility] 0.4 No 1capsul Q1D Flomax 0.4 [facility] mg capsule mg capsule e(s) mg capsule Medical Take 1 Take 1 Take 1 capsule capsule capsule every day every day every day by oral by oral by oral route. route. route. hydralazine hydralazine No 1 BID hydralazin [facility] 10 mg 10 mg e 10 mg Medical tablet Take tablet Take tablet 1 tablet 1 tablet Take 1 twice a day twice a day tablet by oral by oral twice a route. route. day by oral route. Lantus Lantus No 29unit( Q1D Lantus [facility] U-100 U-100 s) U-100 Medical Insulin 100 Insulin 100 Insulin unit/mL unit/mL 100 subcutaneou subcutaneou unit/mL s solution s solution subcutaneo Inject 29 Inject 29 us units every units every solution day by day by Inject 29 subcutaneou subcutaneou units s route in s route in every day the the by morning. morning. subcutaneo us route in the morning. lisinopril lisinopril No 1 Q1D lisinopril [facility] 5 mg tablet 5 mg tablet 5 mg M edical Take 1 Take 1 tablet tablet tablet Take 1 every day every day tablet by oral by oral every day route. route. by oral route. Miralax 17 Miralax 17 No 1packet Q1D Miralax 17 [facility] gram oral gram oral (s) gram oral Medical powder powder powder packet Take packet Take packet 1 packet 1 packet Take 1 every day every day packet by oral by oral every day route as route as by oral needed. needed. route as needed. Seroquel Seroquel No 1 BID Seroquel [facility] via 100 mg 100 mg 100 mg Medical tablet Take tablet Take tablet 1 tablet 1 tablet Take 1 twice a day twice a day tablet by oral by oral twice a route. route. day by oral route. sertraline sertraline No 2 Q1D sertraline [facility] 100 mg 100 mg 100 mg Medical tablet Take tablet Take tablet 2 tablets 2 tablets Take 2 every day every day tablets by oral by oral every day route. route. by oral route. Tradjenta 5 Tradjenta 5 No 1 Q1D Tradjenta [facility] mg tablet mg tablet 5 mg Medic al Take 1 Take 1 tablet tablet tablet Take 1 every day every day tablet by oral by oral every day route. route. by oral route. Tylenol 325 Tylenol 325 No 2capsul Q6H Tylenol [facility] mg capsule mg capsule e(s) 325 mg M edical Take 2 Take 2 capsule capsules capsules Take 2 every 6 every 6 capsules hours by hours by every 6 oral route oral route hours by as needed. as needed. oral route as needed. aspirin 81 aspirin 81 No 1 Q1D aspirin 81 [facility] mg mg mg Medical tablet,marty tablet,marty tablet,del yed release yed release ayed Take 1 Take 1 release tablet tablet Take 1 every day every day tablet by oral by oral every day route. route. by oral route. Blood Blood No Blood [facility] Glucose Glucose Glucose Medica l Test AC and Test AC and Test AC HS HS and HS Depakote Depakote No 2capsul BID Depakote [facility] Sprinkles Sprinkles e(s) Spr[facility] 125 mg 125 mg 125 mg capsule,del capsule,del capsule,de ayed ayed layed release release release Take 2 Take 2 Take 2 capsules capsules capsules twice a day twice a day twice a by oral by oral day by route. route. oral route. docusate docusate No 1capsul BID docusate [facility] sodium 100 sodium 100 e(s) sodium 100 Medical mg capsule mg capsule mg capsule Take 1 Take 1 Take 1 capsule capsule capsule twice a day twice a day twice a by oral by oral day by route. route. oral route. finasteride finasteride No 1 Q1D finasterid [facility] 5 mg tablet 5 mg tablet e 5 mg Medical Take 1 Take 1 tablet tablet tablet Take 1 every day every day tablet by oral by oral every day route. route. by oral route. Flomax 0.4 Flomax 0.4 No 1capsul BID Flomax 0.4 [facility] mg capsule mg capsule e(s) mg capsule Medical Take 1 Take 1 Take 1 capsule capsule capsule twice a day twice a day twice a by oral by oral day by route. route. oral route. hydralazine hydralazine No 1 BID hydralazin [facility] 10 mg 10 mg e 10 mg Medical tablet Take tablet Take tablet 1 tablet 1 tablet Take 1 twice a day twice a day tablet by oral by oral twice a route. route. day by oral route. Lantus Lantus No Lantus [facility] Solostar Solostar Solostar Med ical U-100 U-100 U-100 Insulin 25 Insulin 25 Insulin 25 units once units once units once a day 7AM a day 7AM a day 7AM hold for hold for hold for Blood sugar Blood sugar Blood <140 <140 sugar <140 Lipitor 10 Lipitor 10 No 1 Q1D Lipitor 10 [facility] mg tablet mg tablet mg tablet Medical Take 1 Take 1 Take 1 tablet tablet tablet every day every day every day by oral by oral by oral route. route. route. lisinopril lisinopril No 1 Q1D lisinopril [facility] 5 mg tablet 5 mg tablet 5 mg M edical Take 1 Take 1 tablet tablet tablet Take 1 every day every day tablet by oral by oral every day route. route. by oral route. Miralax 17 Miralax 17 No 1packet Q1D Miralax 17 [facility] gram oral gram oral (s) gram oral Medical powder powder powder packet Take packet Take packet 1 packet 1 packet Take 1 every day every day packet by oral by oral every day route as route as by oral needed. needed. route as needed. Seroquel Seroquel No 1 BID Seroquel [facility] via 100 mg 100 mg 100 mg Medical tablet Take tablet Take tablet 1 tablet 1 tablet Take 1 twice a day twice a day tablet by oral by oral twice a route. route. day by oral route. sertraline sertraline No 2 Q1D sertraline [facility] 100 mg 100 mg 100 mg Medical tablet Take tablet Take tablet 2 tablets 2 tablets Take 2 every day every day tablets by oral by oral every day route. route. by oral route. Tradjenta 5 Tradjenta 5 No 1 Q1D Tradjenta [facility] mg tablet mg tablet 5 mg Medic al Take 1 Take 1 tablet tablet tablet Take 1 every day every day tablet by oral by oral every day route. route. by oral route. Tylenol 325 Tylenol 325 No 2capsul Q6H Tylenol [facility] mg capsule mg capsule e(s) 325 mg M edical Take 2 Take 2 capsule capsules capsules Take 2 every 6 every 6 capsules hours by hours by every 6 oral route oral route hours by as needed. as needed. oral route as needed. aspirin 81 aspirin 81 No 1 Q1D aspirin 81 [facility] mg mg mg Medical tablet,marty tablet,marty tablet,del yed release yed release ayed Take 1 Take 1 release tablet tablet Take 1 every day every day tablet by oral by oral every day route. route. by oral route. Blood Blood No Blood [facility] Glucose Glucose Glucose Medica l Test AC and Test AC and Test AC HS HS and HS Depakote Depakote No 2capsul BID Depakote [facility] Sprinkles Sprinkles e(s) Sprinkles [facility] 125 mg 125 mg 125 mg capsule,del capsule,del capsule,de ayed ayed layed release release release Take 2 Take 2 Take 2 capsules capsules capsules twice a day twice a day twice a by oral by oral day by route. route. oral route. docusate docusate No 1capsul BID docusate [facility] sodium 100 sodium 100 e(s) sodium 100 Medical mg capsule mg capsule mg capsule Take 1 Take 1 Take 1 capsule capsule capsule twice a day twice a day twice a by oral by oral day by route. route. oral route. finasteride finasteride No 1 Q1D finasterid [facility] 5 mg tablet 5 mg tablet e 5 mg Medical Take 1 Take 1 tablet tablet tablet Take 1 every day every day tablet by oral by oral every day route. route. by oral route. Flomax 0.4 Flomax 0.4 No 1capsul BID Flomax 0.4 [facility] mg capsule mg capsule e(s) mg capsule Medical Take 1 Take 1 Take 1 capsule capsule capsule twice a day twice a day twice a by oral by oral day by route. route. oral route. hydralazine hydralazine No 1 BID hydralazin [facility] 10 mg 10 mg e 10 mg Medical tablet Take tablet Take tablet 1 tablet 1 tablet Take 1 twice a day twice a day tablet by oral by oral twice a route. route. day by oral route. Lantus Lantus No Lantus [facility] Solostar Solost[facility] Solostar Med ical U-100 U-100 U-100 Insulin 25 Insulin 25 Insulin 25 units once units once units once a day 7AM a day 7AM a day 7AM hold for hold for hold for Blood sugar Blood sugar Blood <140 <140 sugar <140 [facility] 10 Lipitor 10 No 1 Q1D Lip[facility] 10 [facility] mg tablet mg tablet mg tablet Medical Take 1 Take 1 Take 1 tablet tablet tablet every day every day every day by oral by oral by oral route. route. route. lisinopril lisinopril No 1 Q1D lisinopril [facility] 5 mg tablet 5 mg tablet 5 mg M edical Take 1 Take 1 tablet tablet tablet Take 1 every day every day tablet by oral by oral every day route. route. by oral route. Miralax 17 Miralax 17 No 1packet Q1D Miralax 17 [facility] gram oral gram oral (s) gram oral Medical powder powder powder packet Take packet Take packet 1 packet 1 packet Take 1 every day every day packet by oral by oral every day route as route as by oral needed. needed. route as needed. Seroquel Seroquel No 1 BID Seroquel [facility] via 100 mg 100 mg 100 mg Medical tablet Take tablet Take tablet 1 tablet 1 tablet Take 1 twice a day twice a day tablet by oral by oral twice a route. route. day by oral route. sertraline sertraline No 2 Q1D sertraline [facility] 100 mg 100 mg 100 mg Medical tablet Take tablet Take tablet 2 tablets 2 tablets Take 2 every day every day tablets by oral by oral every day route. route. by oral route. Tradjenta 5 Tradjenta 5 No 1 Q1D Tradjenta [facility] mg tablet mg tablet 5 mg Medic al Take 1 Take 1 tablet tablet tablet Take 1 every day every day tablet by oral by oral every day route. route. by oral route. Tylenol 325 Tylenol 325 No 2capsul Q6H Tylenol [facility] mg capsule mg capsule e(s) 325 mg M edical Take 2 Take 2 capsule capsules capsules Take 2 every 6 every 6 capsules hours by hours by every 6 oral route oral route hours by as needed. as needed. oral route as needed. aspirin 81 aspirin 81 No 1 Q1D aspirin 81 [facility] mg mg mg Medical tablet,marty tablet,marty tablet,del yed release yed release ayed Take 1 Take 1 release tablet tablet Take 1 every day every day tablet by oral by oral every day route. route. by oral route. Depakote Depakote No 2capsul BID Depakote [facility] Sprinkles Sprinkles e(s) Spr[facility] 125 mg 125 mg 125 mg capsule,del capsule,del capsule,de ayed ayed layed release release release Take 2 Take 2 Take 2 capsules capsules capsules twice a day twice a day twice a by oral by oral day by route. route. oral route. docusate docusate No 1capsul BID docusate [facility] sodium 100 sodium 100 e(s) sodium 100 Medical mg capsule mg capsule mg capsule Take 1 Take 1 Take 1 capsule capsule capsule twice a day twice a day twice a by oral by oral day by route. route. oral route. finasteride finasteride No 1 Q1D finasterid [facility] 5 mg tablet 5 mg tablet e 5 mg Medical Take 1 Take 1 tablet tablet tablet Take 1 every day every day tablet by oral by oral every day route. route. by oral route. Flomax 0.4 Flomax 0.4 No 1capsul BID Flomax 0.4 [facility] mg capsule mg capsule e(s) mg capsule Medical Take 1 Take 1 Take 1 capsule capsule capsule twice a day twice a day twice a by oral by oral day by route. route. oral route. hydralazine hydralazine No 1 BID hydralazin [facility] 10 mg 10 mg e 10 mg Medical tablet Take tablet Take tablet 1 tablet 1 tablet Take 1 twice a day twice a day tablet by oral by oral twice a route. route. day by oral route. Lantus Lantus No 25unit( Q1D Lantus [facility] U-100 U-100 s) U-100 Medical Insulin 100 Insulin 100 Insulin unit/mL unit/mL 100 subcutaneou subcutaneou unit/mL s solution s solution subcutaneo Inject 25 Inject 25 us units every units every solution day by day by Inject 25 subcutaneou subcutaneou units s route in s route in every day the the by morning. morning. subcutaneo us route in the morning. Lipitor 10 Lipitor 10 No 1 Q1D Lipitor 10 [facility] mg tablet mg tablet mg tablet Medical Take 1 Take 1 Take 1 tablet tablet tablet every day every day every day by oral by oral by oral route. route. route. lisinopril lisinopril No 1 Q1D lisinopril [facility] 5 mg tablet 5 mg tablet 5 mg M edical Take 1 Take 1 tablet tablet tablet Take 1 every day every day tablet by oral by oral every day route. route. by oral route. Miralax 17 Miralax 17 No 1packet Q1D Miralax 17 [facility] gram oral gram oral (s) gram oral Medical powder powder powder packet Take packet Take packet 1 packet 1 packet Take 1 every day every day packet by oral by oral every day route as route as by oral needed. needed. route as needed. Seroquel Seroquel No 1 BID Seroquel [facility] via 100 mg 100 mg 100 mg [facility] tablet Take tablet Take tablet 1 tablet 1 tablet Take 1 twice a day twice a day tablet by oral by oral twice a route. route. day by oral route. sertraline sertraline No 2 Q1D sertraline [facility] 100 mg 100 mg 100 mg [facility] tablet Take tablet Take tablet 2 tablets 2 tablets Take 2 every day every day tablets by oral by oral every day route. route. by oral route. Tradjenta 5 Tradjenta 5 No 1 Q1D Tr[facility]enta [facility] mg tablet mg tablet 5 mg [facility] al Take 1 Take 1 tablet tablet tablet Take 1 every day every day tablet by oral by oral every day route. route. by oral route. Tylenol 325 Tylenol 325 No 2capsul Q6H Tylenol [facility] mg capsule mg capsule e(s) 325 mg M edical Take 2 Take 2 capsule capsules capsules Take 2 every 6 every 6 capsules hours by hours by every 6 oral route oral route hours by as needed. as needed. oral route as needed. aspirin 81 aspirin 81 No 1 Q1D aspirin 81 [facility] mg mg mg Medical tablet,marty tablet,marty tablet,del yed release yed release ayed Take 1 Take 1 release tablet tablet Take 1 every day every day tablet by oral by oral every day route. route. by oral route. Depakote Depakote No 2capsul BID Depakote [facility] Spr[facility] Sprinkles e(s) [facility] 125 mg 125 mg 125 mg capsule,del capsule,del capsule,de ayed ayed layed release release release Take 2 Take 2 Take 2 capsules capsules capsules twice a day twice a day twice a by oral by oral day by route. route. oral route. docusate docusate No 1capsul BID docusate [facility] sodium 100 sodium 100 e(s) sodium 100 [facility] mg capsule mg capsule mg capsule Take 1 Take 1 Take 1 capsule capsule capsule twice a day twice a day twice a by oral by oral day by route. route. oral route. finasteride finasteride No 1 Q1D finasterid [facility] 5 mg tablet 5 mg tablet e 5 mg Medical Take 1 Take 1 tablet tablet tablet Take 1 every day every day tablet by oral by oral every day route. route. by oral route. Flomax 0.4 Flomax 0.4 No 1capsul BID Flomax 0.4 [facility] mg capsule mg capsule e(s) mg capsule Medical Take 1 Take 1 Take 1 capsule capsule capsule twice a day twice a day twice a by oral by oral day by route. route. oral route. hydralazine hydralazine No 1 BID hydralazin [facility] 10 mg 10 mg e 10 mg [facility] tablet Take tablet Take tablet 1 tablet 1 tablet Take 1 twice a day twice a day tablet by oral by oral twice a route. route. day by oral route. Lantus Lantus No 25unit( Q1D Lantus [facility] U-100 U-100 s) U-100 [facility] Insulin 100 Insulin 100 Insulin unit/mL unit/mL 100 subcutaneou subcutaneou unit/mL s solution s solution subcutaneo Inject 25 Inject 25 us units every units every solution day by day by Inject 25 subcutaneou subcutaneou units s route in s route in every day the the by morning. morning. subcutaneo us route in the morning. Lipitor 10 Lipitor 10 No 1 Q1D Lipitor 10 [facility] mg tablet mg tablet mg tablet Medical Take 1 Take 1 Take 1 tablet tablet tablet every day every day every day by oral by oral by oral route. route. route. lisinopril lisinopril No 1 Q1D lisinopril [facility] 5 mg tablet 5 mg tablet 5 mg M edical Take 1 Take 1 tablet tablet tablet Take 1 every day every day tablet by oral by oral every day route. route. by oral route. Miralax 17 Miralax 17 No 1packet Q1D Miralax 17 [facility] gram oral gram oral (s) gram oral Medical powder powder powder packet Take packet Take packet 1 packet 1 packet Take 1 every day every day packet by oral by oral every day route as route as by oral needed. needed. route as needed. Seroquel Seroquel No 1 BID Seroquel [facility] via 100 mg 100 mg 100 mg [facility] tablet Take tablet Take tablet 1 tablet 1 tablet Take 1 twice a day twice a day tablet by oral by oral twice a route. route. day by oral route. sertraline sertraline No 2 Q1D sertraline [facility] 100 mg 100 mg 100 mg [facility] tablet Take tablet Take tablet 2 tablets 2 tablets Take 2 every day every day tablets by oral by oral every day route. route. by oral route. Tradjenta 5 Tradjenta 5 No 1 Q1D Tradjenta [facility] mg tablet mg tablet 5 mg [facility] al Take 1 Take 1 tablet tablet tablet Take 1 every day every day tablet by oral by oral every day route. route. by oral route. Tylenol 325 Tylenol 325 No 2capsul Q6H Tylenol [facility] mg capsule mg capsule e(s) 325 mg M edical Take 2 Take 2 capsule capsules capsules Take 2 every 6 every 6 capsules hours by hours by every 6 oral route oral route hours by as needed. as needed. oral route as needed. aspirin 81 aspirin 81 No 1 Q1D aspirin 81 [facility] mg mg mg Medical tablet,marty tablet,marty tablet,del yed release yed release ayed Take 1 Take 1 release tablet tablet Take 1 every day every day tablet by oral by oral every day route. route. by oral route. Depakote Depakote No 2capsul BID Depakote [facility] Sprinkles Sprinkles e(s) [facility] 125 mg 125 mg 125 mg capsule,del capsule,del capsule,de ayed ayed layed release release release Take 2 Take 2 Take 2 capsules capsules capsules twice a day twice a day twice a by oral by oral day by route. route. oral route. docusate docusate No 1capsul BID docusate [facility] sodium 100 sodium 100 e(s) sodium 100 [facility] mg capsule mg capsule mg capsule Take 1 Take 1 Take 1 capsule capsule capsule twice a day twice a day twice a by oral by oral day by route. route. oral route. finasteride finasteride No 1 Q1D finasterid [facility] 5 mg tablet 5 mg tablet e 5 mg Medical Take 1 Take 1 tablet tablet tablet Take 1 every day every day tablet by oral by oral every day route. route. by oral route. Flomax 0.4 Flomax 0.4 No 1capsul BID Flomax 0.4 [facility] mg capsule mg capsule e(s) mg capsule Medical Take 1 Take 1 Take 1 capsule capsule capsule twice a day twice a day twice a by oral by oral day by route. route. oral route. hydralazine hydralazine No 1 BID hydralazin [facility] 10 mg 10 mg e 10 mg Medical tablet Take tablet Take tablet 1 tablet 1 tablet Take 1 twice a day twice a day tablet by oral by oral twice a route. route. day by oral route. Lantus Lantus No 25unit( Q1D Lantus [facility] U-100 U-100 s) U-100 [facility] Insulin 100 Insulin 100 Insulin unit/mL unit/mL 100 subcutaneou subcutaneou unit/mL s solution s solution subcutaneo Inject 25 Inject 25 us units every units every solution day by day by Inject 25 subcutaneou subcutaneou units s route in s route in every day the the by morning. morning. subcutaneo us route in the morning. Lipitor 10 Lipitor 10 No 1 Q1D Lipitor 10 [facility] mg tablet mg tablet mg tablet Medical Take 1 Take 1 Take 1 tablet tablet tablet every day every day every day by oral by oral by oral route. route. route. lisinopril lisinopril No 1 Q1D lisinopril [facility] 5 mg tablet 5 mg tablet 5 mg M edical Take 1 Take 1 tablet tablet tablet Take 1 every day every day tablet by oral by oral every day route. route. by oral route. Miralax 17 Miralax 17 No 1packet Q1D Miralax 17 [facility] gram oral gram oral (s) gram oral Medical powder powder powder packet Take packet Take packet 1 packet 1 packet Take 1 every day every day packet by oral by oral every day route as route as by oral needed. needed. route as needed. Seroquel Seroquel No 1 BID Seroquel [facility] via 100 mg 100 mg 100 mg [facility] tablet Take tablet Take tablet 1 tablet 1 tablet Take 1 twice a day twice a day tablet by oral by oral twice a route. route. day by oral route. sertraline sertraline No 2 Q1D sertraline [facility] 100 mg 100 mg 100 mg [facility] tablet Take tablet Take tablet 2 tablets 2 tablets Take 2 every day every day tablets by oral by oral every day route. route. by oral route. Tradjenta 5 Tradjenta 5 No 1 Q1D Tradjenta [facility] mg tablet mg tablet 5 mg Medic al Take 1 Take 1 tablet tablet tablet Take 1 every day every day tablet by oral by oral every day route. route. by oral route. Tylenol 325 Tylenol 325 No 2capsul Q6H Tylenol [facility] mg capsule mg capsule e(s) 325 mg M edical Take 2 Take 2 capsule capsules capsules Take 2 every 6 every 6 capsules hours by hours by every 6 oral route oral route hours by as needed. as needed. oral route as needed. aspirin 81 aspirin 81 No 1 Q1D aspirin 81 [facility] mg mg mg Medical tablet,marty tablet,marty tablet,del yed release yed release ayed Take 1 Take 1 release tablet tablet Take 1 every day every day tablet by oral by oral every day route. route. by oral route. Depakote Depakote No 2capsul BID Depakote [facility] Spr[facility] Sprinkles e(s) [facility] 125 mg 125 mg 125 mg capsule,del capsule,del capsule,de ayed ayed layed release release release Take 2 Take 2 Take 2 capsules capsules capsules twice a day twice a day twice a by oral by oral day by route. route. oral route. docusate docusate No 1capsul BID docusate [facility] sodium 100 sodium 100 e(s) sodium 100 [facility] mg capsule mg capsule mg capsule Take 1 Take 1 Take 1 capsule capsule capsule twice a day twice a day twice a by oral by oral day by route. route. oral route. finasteride finasteride No 1 Q1D finasterid [facility] 5 mg tablet 5 mg tablet e 5 mg Medical Take 1 Take 1 tablet tablet tablet Take 1 every day every day tablet by oral by oral every day route. route. by oral route. Flomax 0.4 Flom[facility] 0.4 No 1capsul BID Flomax 0.4 [facility] mg capsule mg capsule e(s) mg capsule Medical Take 1 Take 1 Take 1 capsule capsule capsule twice a day twice a day twice a by oral by oral day by route. route. oral route. hydralazine hydralazine No 1 BID hydralazin [facility] 10 mg 10 mg e 10 mg Medical tablet Take tablet Take tablet 1 tablet 1 tablet Take 1 twice a day twice a day tablet by oral by oral twice a route. route. day by oral route. Lantus Lantus No 25unit( Q1D Lantus [facility] U-100 U-100 s) U-100 [facility] Insulin 100 Insulin 100 Insulin unit/mL unit/mL 100 subcutaneou subcutaneou unit/mL s solution s solution subcutaneo Inject 25 Inject 25 us units every units every solution day by day by Inject 25 subcutaneou subcutaneou units s route in s route in every day the the by morning. morning. subcutaneo us route in the morning. Lipitor 10 Lipitor 10 No 1 Q1D Lipitor 10 [facility] mg tablet mg tablet mg tablet Medical Take 1 Take 1 Take 1 tablet tablet tablet every day every day every day by oral by oral by oral route. route. route. lisinopril lisinopril No 1 Q1D lisinopril [facility] 5 mg tablet 5 mg tablet 5 mg M edical Take 1 Take 1 tablet tablet tablet Take 1 every day every day tablet by oral by oral every day route. route. by oral route. Miralax 17 Miralax 17 No 1packet Q1D Miralax 17 [facility] gram oral gram oral (s) gram oral Medical powder powder powder packet Take packet Take packet 1 packet 1 packet Take 1 every day every day packet by oral by oral every day route as route as by oral needed. needed. route as needed. Seroquel Seroquel No 1 BID Seroquel [facility] via 100 mg 100 mg 100 mg [facility] tablet Take tablet Take tablet 1 tablet 1 tablet Take 1 twice a day twice a day tablet by oral by oral twice a route. route. day by oral route. sertraline sertraline No 2 Q1D sertraline [facility] 100 mg 100 mg 100 mg [facility] tablet Take tablet Take tablet 2 tablets 2 tablets Take 2 every day every day tablets by oral by oral every day route. route. by oral route. Tradjenta 5 Tradjenta 5 No 1 Q1D Tradjenta [facility] mg tablet mg tablet 5 mg [facility] al Take 1 Take 1 tablet tablet tablet Take 1 every day every day tablet by oral by oral every day route. route. by oral route. Tylenol 325 Tylenol 325 No 2capsul Q6H Tylenol [facility] mg capsule mg capsule e(s) 325 mg M edical Take 2 Take 2 capsule capsules capsules Take 2 every 6 every 6 capsules hours by hours by every 6 oral route oral route hours by as needed. as needed. oral route as needed. aspirin 81 aspirin 81 No 1 Q1D aspirin 81 [facility] mg mg mg Medical tablet,marty tablet,marty tablet,del yed release yed release ayed Take 1 Take 1 release tablet tablet Take 1 every day every day tablet by oral by oral every day route. route. by oral route. Depakote Depakote No 2capsul BID Depakote [facility] Sprinkles Sprinkles e(s) [facility] 125 mg 125 mg 125 mg capsule,del capsule,del capsule,de ayed ayed layed release release release Take 2 Take 2 Take 2 capsules capsules capsules twice a day twice a day twice a by oral by oral day by route. route. oral route. docusate docusate No 1capsul BID docusate [facility] sodium 100 sodium 100 e(s) sodium 100 [facility] mg capsule mg capsule mg capsule Take 1 Take 1 Take 1 capsule capsule capsule twice a day twice a day twice a by oral by oral day by route. route. oral route. finasteride finasteride No 1 Q1D finasterid [facility] 5 mg tablet 5 mg tablet e 5 mg Medical Take 1 Take 1 tablet tablet tablet Take 1 every day every day tablet by oral by oral every day route. route. by oral route. Flomax 0.4 Flomax 0.4 No 1capsul BID Flomax 0.4 [facility] mg capsule mg capsule e(s) mg capsule Medical Take 1 Take 1 Take 1 capsule capsule capsule twice a day twice a day twice a by oral by oral day by route. route. oral route. hydralazine hydralazine No 1 BID hydralazin [facility] 10 mg 10 mg e 10 mg Medical tablet Take tablet Take tablet 1 tablet 1 tablet Take 1 twice a day twice a day tablet by oral by oral twice a route. route. day by oral route. Lantus Lantus No 25unit( Q1D Lantus [facility] U-100 U-100 s) U-100 [facility] Insulin 100 Insulin 100 Insulin unit/mL unit/mL 100 subcutaneou subcutaneou unit/mL s solution s solution subcutaneo Inject 25 Inject 25 us units every units every solution day by day by Inject 25 subcutaneou subcutaneou units s route in s route in every day the the by morning. morning. subcutaneo us route in the morning. lisinopril lisinopril No 1 Q1D lisinopril [facility] 5 mg tablet 5 mg tablet 5 mg M edical Take 1 Take 1 tablet tablet tablet Take 1 every day every day tablet by oral by oral every day route. route. by oral route. Miralax 17 Miralax 17 No 1packet Q1D Miralax 17 [facility] gram oral gram oral (s) gram oral Medical powder powder powder packet Take packet Take packet 1 packet 1 packet Take 1 every day every day packet by oral by oral every day route as route as by oral needed. needed. route as needed. Seroquel Seroquel No 1 BID Seroquel [facility] via 100 mg 100 mg 100 mg [facility] tablet Take tablet Take tablet 1 tablet 1 tablet Take 1 twice a day twice a day tablet by oral by oral twice a route. route. day by oral route. sertraline sertraline No 2 Q1D sertraline [facility] 100 mg 100 mg 100 mg Medical tablet Take tablet Take tablet 2 tablets 2 tablets Take 2 every day every day tablets by oral by oral every day route. route. by oral route. Tradjenta 5 Tradjenta 5 No 1 Q1D Tradjenta [facility] mg tablet mg tablet 5 mg [facility] al Take 1 Take 1 tablet tablet tablet Take 1 every day every day tablet by oral by oral every day route. route. by oral route. Tylenol 325 Tylenol 325 No 2capsul Q6H Tylenol [facility] mg capsule mg capsule e(s) 325 mg M edical Take 2 Take 2 capsule capsules capsules Take 2 every 6 every 6 capsules hours by hours by every 6 oral route oral route hours by as needed. as needed. oral route as needed. aspirin 81 aspirin 81 No 1 Q1D aspirin 81 [facility] mg mg mg Medical tablet,marty tablet,marty tablet,del yed release yed release ayed Take 1 Take 1 release tablet tablet Take 1 every day every day tablet by oral by oral every day route. route. by oral route. Depakote Depakote No 2capsul BID Depakote [facility] Sprinkles Sprinkles e(s) [facility] 125 mg 125 mg 125 mg capsule,del capsule,del capsule,de ayed ayed layed release release release Take 2 Take 2 Take 2 capsules capsules capsules twice a day twice a day twice a by oral by oral day by route. route. oral route. docusate docusate No 1capsul BID docusate [facility] sodium 100 sodium 100 e(s) sodium 100 [facility] mg capsule mg capsule mg capsule Take 1 Take 1 Take 1 capsule capsule capsule twice a day twice a day twice a by oral by oral day by route. route. oral route. finasteride finasteride No 1 Q1D finasterid [facility] 5 mg tablet 5 mg tablet e 5 mg Medical Take 1 Take 1 tablet tablet tablet Take 1 every day every day tablet by oral by oral every day route. route. by oral route. Flomax 0.4 Fl[facility] 0.4 No 1capsul BID Flomax 0.4 [facility] mg capsule mg capsule e(s) mg capsule Medical Take 1 Take 1 Take 1 capsule capsule capsule twice a day twice a day twice a by oral by oral day by route. route. oral route. hydralazine hydralazine No 1 BID hydralazin [facility] 10 mg 10 mg e 10 mg Medical tablet Take tablet Take tablet 1 tablet 1 tablet Take 1 twice a day twice a day tablet by oral by oral twice a route. route. day by oral route. Lantus Lantus No 25unit( Q1D Lantus [facility] U-100 U-100 s) U-100 [facility] Insulin 100 Insulin 100 Insulin unit/mL unit/mL 100 subcutaneou subcutaneou unit/mL s solution s solution subcutaneo Inject 25 Inject 25 us units every units every solution day by day by Inject 25 subcutaneou subcutaneou units s route in s route in every day the the by morning. morning. subcutaneo us route in the morning. lisinopril lisinopril No 1 Q1D lisinopril [facility] 5 mg tablet 5 mg tablet 5 mg M edical Take 1 Take 1 tablet tablet tablet Take 1 every day every day tablet by oral by oral every day route. route. by oral route. Miralax 17 Miralax 17 No 1packet Q1D Miralax 17 [facility] gram oral gram oral (s) gram oral Medical powder powder powder packet Take packet Take packet 1 packet 1 packet Take 1 every day every day packet by oral by oral every day route as route as by oral needed. needed. route as needed. Seroquel Seroquel No 1 BID Seroquel [facility] via 100 mg 100 mg 100 mg [facility] tablet Take tablet Take tablet 1 tablet 1 tablet Take 1 twice a day twice a day tablet by oral by oral twice a route. route. day by oral route. sertraline sertraline No 2 Q1D sertraline [facility] 100 mg 100 mg 100 mg Medical tablet Take tablet Take tablet 2 tablets 2 tablets Take 2 every day every day tablets by oral by oral every day route. route. by oral route. Tradjenta 5 Tradjenta 5 No 1 Q1D Tradjenta [facility] mg tablet mg tablet 5 mg [facility] al Take 1 Take 1 tablet tablet tablet Take 1 every day every day tablet by oral by oral every day route. route. by oral route. Tylenol 325 Tylenol 325 No 2capsul Q6H Tylenol [facility] mg capsule mg capsule e(s) 325 mg M edical Take 2 Take 2 capsule capsules capsules Take 2 every 6 every 6 capsules hours by hours by every 6 oral route oral route hours by as needed. as needed. oral route as needed. aspirin 81 aspirin 81 No 1 Q1D aspirin 81 [facility] mg mg mg Medical tablet,marty tablet,marty tablet,del yed release yed release ayed Take 1 Take 1 release tablet tablet Take 1 every day every day tablet by oral by oral every day route. route. by oral route. Depakote Depakote No 2capsul BID Depakote [facility] Sprinkles Sprinkles e(s) [facility] 125 mg 125 mg 125 mg capsule,del capsule,del capsule,de ayed ayed layed release release release Take 2 Take 2 Take 2 capsules capsules capsules twice a day twice a day twice a by oral by oral day by route. route. oral route. docusate docusate No 1capsul BID docusate [facility] sodium 100 sodium 100 e(s) sodium 100 [facility] mg capsule mg capsule mg capsule Take 1 Take 1 Take 1 capsule capsule capsule twice a day twice a day twice a by oral by oral day by route. route. oral route. finasteride finasteride No 1 Q1D finasterid [facility] 5 mg tablet 5 mg tablet e 5 mg Medical Take 1 Take 1 tablet tablet tablet Take 1 every day every day tablet by oral by oral every day route. route. by oral route. Vital Signs Vital Name Observation Time Observation Value Comments Source BP Diastolic 2023-02-21 00:00:00 71 mm[Hg] [facility] Height 2023-02-21 00:00:00 64 [in_i] [facility] BMI (Body Mass 2023-02-21 00:00:00 29.7 kg/m2 [facility] Medical Index) BP Systolic 2023-02-21 00:00:00 128 mm[Hg] [facility] Body Weight 2023-02-21 00:00:00 2769 [oz_av] [facility] BP Diastolic 2023-01-25 00:00:00 73 mm[Hg] [facility] Height 2023-01-25 00:00:00 64 [in_i] [facility] BMI (Body Mass 2023-01-25 00:00:00 29.7 kg/m2 [facility] Medical Index) BP Systolic 2023-01-25 00:00:00 131 mm[Hg] [facility] Body Weight 2023-01-25 00:00:00 2769 [oz_av] [facility] BP Diastolic 2023-01-03 00:00:00 78 mm[Hg] [facility] Height 2023-01-03 00:00:00 64 [in_i] [facility] BP Systolic 2023-01-03 00:00:00 139 mm[Hg] [facility] Body Weight 2023-01-03 00:00:00 2738 [oz_av] [facility] BP Diastolic 2022-12-30 00:00:00 78 mm[Hg] [facility] Height 2022-12-30 00:00:00 64 [in_i] [facility] BMI (Body Mass 2022-12-30 00:00:00 29.4 kg/m2 [facility] Index) BP Systolic 2022-12-30 00:00:00 132 mm[Hg] [facility] Body Weight 2022-12-30 00:00:00 2738 [oz_av] [facility] BP Diastolic 2022-12-27 00:00:00 79 mm[Hg] [facility] Height 2022-12-27 00:00:00 64 [in_i] [facility] BMI (Body Mass 2022-12-27 00:00:00 29.4 kg/m2 [facility] Index) BP Systolic 2022-12-27 00:00:00 138 mm[Hg] [facility] Body Weight 2022-12-27 00:00:00 2738 [oz_av] [facility] BP Diastolic 2022-12-06 00:00:00 55 mm[Hg] [facility] Height 2022-12-06 00:00:00 64 [in_i] [facility] BMI (Body Mass 2022-12-06 00:00:00 31.6 kg/m2 [facility] Index) BP Systolic 2022-12-06 00:00:00 98 mm[Hg] [facility] Body Weight 2022-12-06 00:00:00 2944 [oz_av] [facility] BP Diastolic 2022-12-03 00:00:00 74 mm[Hg] [facility] Height 2022-12-03 00:00:00 64 [in_i] [facility] BMI (Body Mass 2022-12-03 00:00:00 31.6 kg/m2 [facility] Index) BP Systolic 2022-12-03 00:00:00 138 mm[Hg] [facility] Body Weight 2022-12-03 00:00:00 2944 [oz_av] [facility] BP Diastolic 2022-11-16 00:00:00 80 mm[Hg] [facility] Height 2022-11-16 00:00:00 64 [in_i] [facility] BMI (Body Mass 2022-11-16 00:00:00 31.6 kg/m2 [facility] Medical Index) BP Systolic 2022-11-16 00:00:00 115 mm[Hg] [facility] Body Weight 2022-11-16 00:00:00 2944 [oz_av] [facility] BP Diastolic 2022-11-08 00:00:00 66 mm[Hg] [facility] Height 2022-11-08 00:00:00 64 [in_i] [facility] BMI (Body Mass 2022-11-08 00:00:00 31.6 kg/m2 [facility] Medical Index) BP Systolic 2022-11-08 00:00:00 128 mm[Hg] [facility] Body Weight 2022-11-08 00:00:00 2944 [oz_av] [facility] BP Diastolic 2022-10-25 00:00:00 74 mm[Hg] [facility] Height 2022-10-25 00:00:00 64 [in_i] [facility] BMI (Body Mass 2022-10-25 00:00:00 31.6 kg/m2 [facility]) BP Systolic 2022-10-25 00:00:00 138 mm[Hg] [facility] Body Weight 2022-10-25 00:00:00 2944 [oz_av] [facility] BP Diastolic 2022-10-14 00:00:00 72 mm[Hg] [facility] Height 2022-10-14 00:00:00 64 [in_i] [facility] BMI (Body Mass 2022-10-14 00:00:00 31.6 kg/m2 [facility]) BP Systolic 2022-10-14 00:00:00 118 mm[Hg] [facility] Body Weight 2022-10-14 00:00:00 2944 [oz_av] [facility] BP Diastolic 2022-10-07 00:00:00 74 mm[Hg] [facility] Height 2022-10-07 00:00:00 64 [in_i] [facility] BMI (Body Mass 2022-10-07 00:00:00 31.2 kg/m2 [facility] Medical Index) BP Systolic 2022-10-07 00:00:00 137 mm[Hg] [facility] Body Weight 2022-10-07 00:00:00 2904 [oz_av] [facility] BP Diastolic 2022-09-20 00:00:00 71 mm[Hg] [facility] Height 2022-09-20 00:00:00 64 [in_i] [facility] BMI (Body Mass 2022-09-20 00:00:00 31.9 kg/m2 [facility] Medical Index) BP Systolic 2022-09-20 00:00:00 135 mm[Hg] [facility] Body Weight 2022-09-20 00:00:00 2976 [oz_av] [facility] BP Diastolic 2022-09-02 00:00:00 61 mm[Hg] [facility] Height 2022-09-02 00:00:00 64 [in_i] [facility] BMI (Body Mass 2022-09-02 00:00:00 31.1 kg/m2 [facility] Medical Index) BP Systolic 2022-09-02 00:00:00 133 mm[Hg] [facility] Body Weight 2022-09-02 00:00:00 2902 [oz_av] [facility] BP Diastolic 2022-08-12 00:00:00 75 mm[Hg] [facility] Height 2022-08-12 00:00:00 64 [in_i] [facility] BMI (Body Mass 2022-08-12 00:00:00 30.7 kg/m2 [facility] Medical Index) BP Systolic 2022-08-12 00:00:00 130 mm[Hg] [facility] Body Weight 2022-08-12 00:00:00 2864 [oz_av] [facility] BP Diastolic 2022-08-09 00:00:00 81 mm[Hg] [facility] Height 2022-08-09 00:00:00 64 [in_i] [facility] BMI (Body Mass 2022-08-09 00:00:00 30.7 kg/m2 [facility]) BP Systolic 2022-08-09 00:00:00 128 mm[Hg] [facility] Body Weight 2022-08-09 00:00:00 2864 [oz_av] [facility] BP Diastolic 2022-07-19 00:00:00 68 mm[Hg] [facility] Height 2022-07-19 00:00:00 64 [in_i] [facility] BMI (Body Mass 2022-07-19 00:00:00 30.7 kg/m2 [facility]) BP Systolic 2022-07-19 00:00:00 122 mm[Hg] [facility] Body Weight 2022-07-19 00:00:00 2864 [oz_av] [facility] BP Diastolic 2022-06-02 00:00:00 74 mm[Hg] [facility] Height 2022-06-02 00:00:00 64 [in_i] [facility] BMI (Body Mass 2022-06-02 00:00:00 26.6 kg/m2 [facility]) BP Systolic 2022-06-02 00:00:00 126 mm[Hg] [facility] Body Weight 2022-06-02 00:00:00 2480 [oz_av] [facility] BP Diastolic 2022-05-27 00:00:00 76 mm[Hg] [facility] Height 2022-05-27 00:00:00 64 [in_i] [facility] BP Systolic 2022-05-27 00:00:00 133 mm[Hg] [facility] Body Weight 2022-05-27 00:00:00 2480 [oz_av] [facility] BP Diastolic 2022-04-26 00:00:00 68 mm[Hg] [facility] Height 2022-04-26 00:00:00 64 [in_i] [facility] BMI (Body Mass 2022-04-26 00:00:00 26.4 kg/m2 [facility]) BP Systolic 2022-04-26 00:00:00 135 mm[Hg] [facility] Body Weight 2022-04-26 00:00:00 2464 [oz_av] [facility] BP Diastolic 2022-04-07 00:00:00 60 mm[Hg] [facility] Height 2022-04-07 00:00:00 64 [in_i] [facility] BMI (Body Mass 2022-04-07 00:00:00 26.5 kg/m2 [facility]) BP Systolic 2022-04-07 00:00:00 135 mm[Hg] [facility] Body Weight 2022-04-07 00:00:00 2472 [oz_av] [facility] BP Diastolic 2022-04-05 00:00:00 72 mm[Hg] [facility] Height 2022-04-05 00:00:00 64 [in_i] [facility] BMI (Body Mass 2022-04-05 00:00:00 26.5 kg/m2 [facility]) BP Systolic 2022-04-05 00:00:00 129 mm[Hg] [facility] Body Weight 2022-04-05 00:00:00 2472 [oz_av] [facility] BP Diastolic 2022-03-18 00:00:00 78 mm[Hg] [facility] Height 2022-03-18 00:00:00 64 [in_i] [facility] BMI (Body Mass 2022-03-18 00:00:00 26.5 kg/m2 [facility]) BP Systolic 2022-03-18 00:00:00 124 mm[Hg] [facility] Body Weight 2022-03-18 00:00:00 2472 [oz_av] [facility] BP Diastolic 2022-02-10 00:00:00 64 mm[Hg] [facility] Height 2022-02-10 00:00:00 64 [in_i] [facility] BMI (Body Mass 2022-02-10 00:00:00 26.5 kg/m2 [facility]) BP Systolic 2022-02-10 00:00:00 125 mm[Hg] Camilla bates Body Weight 2022-02-10 00:00:00 2468 [oz_av] Camilla bates BP Diastolic 2022-02-03 00:00:00 67 mm[Hg] Camilla Liu edical Height 2022-02-03 00:00:00 64 [in_i] [facility] BMI (Body Mass 2022-02-03 00:00:00 26.4 kg/m2 [facility]) BP Systolic 2022-02-03 00:00:00 123 mm[Hg] [facility]illa b[facility] Body Weight 2022-02-03 00:00:00 2464 [oz_av] [facility]illa b[facility] Systolic blood 2021-06-03 16:39:00 181 mm[Hg] Univer sity of pressure [facility] Diastolic blood 2021-06-03 16:39:00 103 mm[Hg] Unive rsity of pressure [facility] Heart rate 2021-06-03 16:39:00 127 /min [facility] Body temperature 2021-06-03 16:39:00 36.89 Pina [facility] 2021-06-03 16:39:00 18 /min [facility] Oxygen saturation in 2021-06-03 16:39:00 99 /min [facility] Arterial blood by [facility] Pulse oximetry Branch Weight 2020-10-19 07:00:00 92.71 KG Weight 2020-10-12 07:01:00 78.19 KG Height 2020-10-02 12:52:00 167.64 CM Weight 2020-10-02 12:52:00 79.37 KG Weight 2020-08-17 11:00:00 86.81 KG Height 2020-08-13 11:33:00 172.72 CM Weight 2020-08-10 11:00:00 84.64 KG Weight 2020-08-07 03:58:00 86.18 KG Height 2020-08-07 03:56:00 162.56 CM Height 2020-08-07 03:55:00 162.56 CM Height 2020-06-24 12:50:00 172.72 CM Weight 2020-06-24 12:50:00 86.18 KG Systolic blood 2020-02-28 21:45:00 160 mm[Hg] Univer [facility]ity of pressure [facility] Diastolic blood 2020-02-28 21:45:00 57 mm[Hg] Unive rsity of pressure [facility] Heart rate 2020-02-28 21:45:00 102 /min [facility] Body temperature 2020-02-28 21:45:00 36.67 Pina [facility] Respiratory rate 2020-02-28 21:45:00 17 /min [facility] Oxygen saturation in 2020-02-28 21:45:00 95 /min [facility] Arterial blood by [employer] Pulse oximetry Branch Body weight 2020-02-26 02:54:00 71.215 kg [facility] BMI 2020-02-26 02:54:00 26.95 kg/m2 [facility] [place] [facility] Body height 2020-02-24 21:50:00 162.6 cm [facility] Systolic blood 2020-01-31 12:50:00 198 mm[Hg] Univer sity of pressure [facility] Diastolic blood 2020-01-31 12:50:00 81 mm[Hg] Unive rsity of pressure [facility] Heart rate 2020-01-31 12:50:00 70 /min [facility] Body temperature 2020-01-31 12:50:00 36.72 Pina [facility] Respiratory rate 2020-01-31 12:50:00 20 /min [facility] Oxygen saturation in 2020-01-31 12:50:00 98 /min [facility] Arterial blood by [employer] ines Pulse oximetry Branch Body weight 2020-01-30 06:45:00 75.479 kg [facility] BMI 2020-01-30 06:45:00 28.56 kg/m2 [facility] Body height 2020-01-29 06:44:00 162.6 cm [facility] Systolic blood 2019-12-30 16:30:00 148 mm[Hg] Univer sity of pressure [facility] Diastolic blood 2019-12-30 16:30:00 68 mm[Hg] Unive rsity of pressure [facility] Heart rate 2019-12-30 16:30:00 89 /min [facility] Body temperature 2019-12-30 16:30:00 36.78 Pina [facility] Respiratory rate 2019-12-30 16:30:00 18 /min [facility] Oxygen saturation in 2019-12-30 16:30:00 93 /min [facility] Arterial blood by [place] [employer] ines Pulse oximetry Branch Body height 2019-12-28 01:31:00 167.6 cm [facility] Body weight 2019-12-28 01:31:00 73.982 kg [facility] BMI 2019-12-28 01:31:00 26.33 kg/m2 [facility] Systolic blood 2019-12-27 18:53:00 85 mm[Hg] Univer sity of pressure [facility] Diastolic blood 2019-12-27 18:53:00 60 mm[Hg] Unive rsity of pressure [facility] Heart rate 2019-12-27 18:53:00 102 /min [facility] Body temperature 2019-12-27 18:53:00 36.39 Pina [facility] Respiratory rate 2019-12-27 18:53:00 20 /min [facility] Oxygen saturation in 2019-12-27 18:53:00 96 /min [facility] Arterial blood by [facility] ines Pulse oximetry Branch Systolic blood 2019-12-21 17:30:00 175 mm[Hg] Univer sity of pressure [facility] Diastolic blood 2019-12-21 17:30:00 86 mm[Hg] Unive rsity of pressure [facility] Heart rate 2019-12-21 17:30:00 86 /min [facility] Body temperature 2019-12-21 17:30:00 36.61 Pina [facility] Respiratory rate 2019-12-21 17:30:00 20 /min [facility] Oxygen saturation in 2019-12-21 17:30:00 96 /min [facility] Arterial blood by [place] [employer] in[employer] Pulse oximetry Branch Body height 2019-12-21 02:36:00 167.6 cm [facility] Body weight 2019-12-21 02:36:00 73.846 kg [facility] BMI 2019-12-21 02:36:00 26.28 kg/m2 [facility] Systolic blood 2019-06-19 20:42:00 163 mm[Hg] Univer [facility]ity of pressure [facility] Diastolic blood 2019-06-19 20:42:00 74 mm[Hg] Unive rsity of pressure [facility] Heart rate 2019-06-19 20:42:00 58 /min [facility] Respiratory rate 2019-06-19 20:42:00 16 /min [facility] Oxygen saturation in 2019-06-19 20:42:00 99 /min [facility] Arterial blood by [employer] Pulse oximetry Branch Body temperature 2019-06-19 16:56:00 36.83 Pina [facility] Body weight 2019-06-19 16:56:00 74.844 kg [facility] BMI 2019-06-19 16:56:00 30.18 kg/m2 [facility] Systolic blood 2019-05-21 17:26:00 84 mm[Hg] Univer sity of pressure [facility] Diastolic blood 2019-05-21 17:26:00 62 mm[Hg] Unive rsity of pressure [facility] Heart rate 2019-05-21 17:26:00 72 /min [facility] Body temperature 2019-05-21 17:26:00 36.22 Pina [facility] Respiratory rate 2019-05-21 17:26:00 18 /min [facility] Body weight 2019-05-21 17:26:00 70.035 kg [facility] BMI 2019-05-21 17:26:00 28.24 kg/m2 [facility] Oxygen saturation in 2019-05-21 17:26:00 96 /min [facility] Arterial blood by [employer] Pulse oximetry Branch Procedures Procedure Date / Time Performing Clinician Source Performed AUTHORIZATION FOR RELEASE 2020-07-09 05:01:00 Doctor Unassigned, [facility] POCT GLUCOSE (AUTOMATED) 2020-02-28 16:41[facility]00 [facility] 2020-02-28 13:42[facility] PAN[facility] (NA, 2020-02-28 10:20:00 Kristopher Ortega [facility] K, CL, CO2, GLUCOSE, BUN, [place] CREATININE, [place]) CBC WITH DIFFERENTIAL 2020-02-28 10:20:[address] [facility] POCT GLUCOSE (AUTOMATED) 2020-02-28 02:32[facility] 2020-02-27 21:42:00 [facility] (AUTOMATED) 2020-02-27 18:16:00 [facility] POCT GLUCOSE (AUTOMATED) 2020-02-27 12:56:00 [facility] BASIC METABOLIC PANEL (NA, 2020-02-27 11:01:00 Kristopher Ortega [facility] K, CL, CO2, GLUCOSE, BUN, [facility] CREATININE, [place]) CBC WITH DIFFERENTIAL 2020-02-27 11:01:[address] [facility] POCT GLUCOSE (AUTOMATED) 2020-02-27 02:20:00 [facility] POCT GLUCOSE (AUTOMATED) 2020-02-26 21:57:00 [facility] POCT GLUCOSE (AUTOMATED) 2020-02-26 18:04:00 [facility] BASIC METABOLIC PANEL (NA, 2020-02-26 11:09:00 Kristopher Ortega [facility] K, CL, CO2, GLUCOSE, BUN, [facility] CREATININE, [place]) CBC WITH DIFFERENTIAL 2020-02-26 11:09:00 Floyd Ortega [facility] MR CERVICAL SPINE WO 2020-02-26 10:07:41 Floyd Ortega [facility] MR LUMBAR SPINE WO 2020-02-26 10:07:41 Floyd Ortega [facility] CONTRAST [facility] MR THORACIC SPINE WO 2020-02-26 10:07:41 [facility] CONTRAST [facility] POCT GLUCOSE (AUTOMATED) 2020-02-26 03:23:00 Alber Greco [facility] VITAMIN B12, LEVEL 2020-02-25 23:36:00 Jj [facility] FOLATE 2020-02-25 23:36:00 J[facility] SEDIMENTATION RATE 2020-02-25 23:36:00 Jj [facility] POCT GLUCOSE (AUTOMATED) 2020-02-25 21:21:00 [facility] POCT GLUCOSE (AUTOMATED) 2020-02-25 16:28:00 [facility] POCT GLUCOSE (AUTOMATED) 2020-02-25 12:47:00 [facility] CREATINE KINASE 2020-02-25 09:03:00 [facility] URIC ACID 2020-02-25 09:03:00 [facility] BASIC METABOLIC PANEL (NA, 2020-02-25 09:03:[address] [facility] K, CL, CO2, GLUCOSE, BUN, Medica l Branch CREATININE, [place]) CBC WITH DIFFERENTIAL 2020-02-25 09:03:00 [facility]IN 2020-02-25 09:03:00 Jj [facility] (A1C) [facility] POCT GLUCOSE (AUTOMATED) 2020-02-25 01:28:00 [facility] POCT GLUCOSE (AUTOMATED) 2020-02-24 21:58:00 [facility] XR HUMERUS 2 VW RIGHT 2020-02-24 18:26:06 Kai Bhatt [facility] XR SHOULDER <2 VW RIGHT 2020-02-24 18:26:06 Kai Bhatt [facility] CT ABDOMEN PELVIS W 2020-02-24 18:04:00 Kai Bhatt [facility] CONTRAST Medical Branch CT THORAX W CONTRAST 2020-02-24 18:04:00 Kai Bhatt [facility] CT CERVICAL SPINE WO 2020-02-24 17:50:00 Kai Bhatt [facility] Medical [facility] CT HEAD WO CONTRAST 2020-02-24 17:50:00 Kai Bhatt [facility] ty [facility] CT LUMBAR SPINE WO 2020-02-24 17:50:00 [facility] [place] [facility] Branch CT THORACIC SPINE WO 2020-02-24 17:50:00 Kai Bhatt [facility] CORONAVIRUS COVID-19 2020-02-24 16:05:00 Kai Bhatt [facility] TESTING [facility] CBC WITH DIFFERENTIAL 2020-02-24 16:01:00 [facility]hat[facility] CREATINE KINASE 2020-02-24 16:00:00 Kai Bhatt [facility] MAGNESIUM 2020-02-24 16:00:00 Kai Bhatt [facility] TROPONIN I 2020-02-24 16:00:00 Kai Bhatt [facility] HEPATIC FUNCTION PANEL 2020-02-24 16:00:00 Kai Bhatt [facility] ([id number]) (ALB,T.PRO,BILI [facility] Branch T,BU/BC,ALT,AST,ALK PHOS) BASIC METABOLIC PANEL (NA, 2020-02-24 16:00:00 Kai Bhatt [facility] K, CL, CO2, GLUCOSE, BUN, Medica l Branch CREATININE, [place]) PROTHROMBIN TIME / INR 2020-02-24 16:00:00 Kai Bhatt [facility] ACTIVATED PARTIAL THRMPLAS 2020-02-24 16:00:00 Kai Bhatt [facility] URINALYSIS 2020-02-24 16:00:00 Kai Bhatt [facility] EKG-12 LEAD 2020-02-24 15:23:04 Kai Bhatt [facility] EKG-12 LEAD 2020-02-24 15:05:40 Kai Bhatt [facility] EMERGENCY DEPARTMENT 2020-02-24 05:01:00 Doctor Unassigned, [facility] DOCUMENTS Bastian [facility] HOSPITAL ADM - MISC 2020-02-24 05:01:00 Doctor Unassigned, [facility] HOSPITAL ADMISSION 2020-02-24 05:01:00 Doctor Unassigned, [facility] BASIC METABOLIC PANEL (NA, 2020-01-31 07:22:00 Edionwe, [facility] K, CL, CO2, GLUCOSE, BUN, Medica l Branch CREATININE, [place]) CBC WITH DIFFERENTIAL 2020-01-31 07:22:00 Edionniya, [facility] BASIC METABOLIC PANEL (NA, 2020-01-30 08:12:00 Edionwe, [facility] K, CL, CO2, GLUCOSE, BUN, Medica l Branch CREATININE, [place]) CBC WITH DIFFERENTIAL 2020-01-30 08:12:00 Edrick [facility] US RETROPERITONEAL LIMITED 2020-01-29 13:38:17 Edionniya [facility] AMMONIA, PLASMA 2020-01-29 10:55[facility] WHOLE BLOOD 2020-01-29 05:18:00 Vishnu Kiersten [facility] URINALYSIS 2020-01-29 04:49:00 Vishnu [facility] XR CHEST 1 VW 2020-01-29 03:03:26 Vishnu [facility] CT HEAD WO CONTRAST 2020-01-29 03:02:58 Kiersten Mares [facility] CREATINE KINASE 2020-01-29 02:51:00 Vishnu [facility] TROPONIN I 2020-01-29 02:51:00 Vishnu [facility] THYROID STIMULATING 2020-01-29 02:51[facility] COMP. METABOLIC PANEL 2020-01-29 02:51:00 Kiersten Mares [facility] ([id number]) Medical Branch ETHANOL 2020-01-29 02:51:00 Vishnu Kiersten [facility] CBC WITH DIFFERENTIAL 2020-01-29 02:51:00 Kiersten [facility]ares [facility] CORONAVIRUS COVID-19 2020-01-29 02:51:00 Vishnu Kiersten [facility] TESTING [facility] LACTIC ACID WHOLE BLOOD 2020-01-29 02:41:00 Vishnu [facility] EKG-12 LEAD 2020-01-29 02:34:09 Vishnu [facility] EKG-12 LEAD 2020-01-29 02:33:28 Vishnu [facility] POCT GLUCOSE (AUTOMATED) 2019-12-30 16:29:00 [facility] ECHO ROUTINE W/DOPPLER 2019-12-30 13:46:24 Danilo Raphael [facility] COLOR [facility] CAROTID DUPLEX BILATERAL 2019-12-30 13:17:50 Danilo Raphael [facility] BY VASCULAR LAB [facility] POCT GLUCOSE (AUTOMATED) 2019-12-30 12:37:00 [facility] BASIC METABOLIC PANEL (NA, 2019-12-30 09:27:00 Danilo Raphael [facility] K, CL, CO2, GLUCOSE, BUN, Medica l Branch CREATININE, [place]) POCT GLUCOSE (AUTOMATED) 2019-12-30 01:40:00 Danilo [facility] POCT GLUCOSE (AUTOMATED) 2019-12-29 16:25:00 [facility] POCT GLUCOSE (AUTOMATED) 2019-12-29 12:10:00 [facility] BASIC METABOLIC PANEL (NA, 2019-12-29 09:06:00 Danilo Raphael [facility] K, CL, CO2, GLUCOSE, BUN, Medica l Branch CREATININE, CA) INTACT PTH CALCIUM GROUP 2019-12-29 09:06:00 Winnie Manaf A [facility] CBC WITH DIFFERENTIAL 2019-12-29 09:06:00 Danilo [facility] POCT GLUCOSE (AUTOMATED) 2019-12-29 01:23:00 [facility] POCT GLUCOSE (AUTOMATED) 2019-12-28 22:03:00 [facility] POCT GLUCOSE (AUTOMATED) 2019-12-28 17:26:00 [facility] POCT GLUCOSE (AUTOMATED) 2019-12-28 13:20:00 [facility]ilo [facility] MAGNESIUM 2019-12-28 10:13:00 Danilo [facility]hael [facility] TROPONIN I 2019-12-28 10:13:00 Irving Brown [facility] BASIC METABOLIC PANEL (NA, 2019-12-28 10:13:00 Danilo Raphael [facility] K, CL, CO2, GLUCOSE, BUN, Medica l Branch CREATININE, [place]) LIPID PANEL ([id number])(TOTAL 2019-12-28 10:13:00 Irving BrownH [facility] TRIGLYCERIDES, HDL) INTACT PTH CALCIUM GROUP 2019-12-28 10:13:00 Mini Orellana [facility] CBC WITH DIFFERENTIAL 2019-12-28 10:13:00 Danilo [facility] URINALYSIS 2019-12-28 07:26:00 [facility] URINE CULTURE 2019-12-28 07:26:00 [facility] CREATININE, URINE RANDOM 2019-12-28 07:26:00 Mini Orellana [facility] TOTAL PROTEIN, URINE 2019-12-28 07:26:00 Mini Orellana [facility] US RETROPERITONEAL 2019-12-28 02:40:46 Mini Orellana [facility] POCT GLUCOSE (AUTOMATED) 2019-12-28 01:24:00 [facility] XR CHEST 1 VW 2019-12-27 20:23:21 [facility] X[facility] WRIST 3+ VW LEFT 2019-12-27 20:23:21 Jadiel [facility] CT CERVICAL SPINE WO 2019-12-27 20:00:29 Jadiel Tinoco [facility] CONTRAST [facility] CT HEAD WO CONTRAST 2019-12-27 20:00:29 Jadiel [facility] CREATINE KINASE 2019-12-27 19:32:00 [facility] URIC ACID 2019-12-27 19:32:00 [facility] LIPASE 2019-12-27 19:32:00 [facility] TROPONIN I 2019-12-27 19:32:00 [facility] HEPATIC FUNCTION PANEL 2019-12-27 19:32:00 Jadiel Tinoco [facility] ([id number]) (ALB,T.PRO,BILI [facility] T,BU/BC,ALT,AST,ALK PHOS) BASIC METABOLIC PANEL (NA, 2019-12-27 19:32:00 Alejandrina [facility] K, CL, CO2, GLUCOSE, BUN, Medica l Branch CREATININE, [place]) CBC WITH DIFFERENTIAL 2019-12-27 19:32:00 Jadiel Tinoco [facility] PROTHROMBIN TIME / INR 2019-12-27 19:32:00 [facility] ACTIVATED PARTIAL THRMPLAS 2019-12-27 19:32:00 Jadiel Tinoco [facility] N-TERMINAL PRO-BNP 2019-12-27 19:32:00 Jadiel Tinoco [facility] EKG-12 LEAD 2019-12-27 19:30:25 Jadiel Tinoco [facility] EKG-12 LEAD 2019-12-27 19:13:58 [facility] HOSPITAL ADM - MISC 2019-12-27 06:01:00 Doctor Unassigned, [facility] Bastian [facility] POCT GLUCOSE (AUTOMATED) 2019-12-21 17:43:00 [facility] CBC WITH DIFFERENTIAL 2019-12-21 14:48:00 [facility] PHOSPHORUS 2019-12-21 14:47:00 Jim Gardner [facility] URIC ACID 2019-12-21 14:47:00 Jim Gardner [facility] MAGNESIUM 2019-12-21 14:47:00 [facility] TROPONIN I 2019-12-21 14:47:00 Jim Gardner [facility] BASIC METABOLIC PANEL (NA, 2019-12-21 14:47:00 Jim Gardner [facility] K, CL, CO2, GLUCOSE, BUN, Medica l Branch CREATININE, [place]) CT ABDOMEN PELVIS WO 2019-12-21 13:31:26 Jim Gardner [facility] CONTRAST [facility] URINALYSIS 2019-12-21 10:27:00 Jim Gardner [facility] POCT GLUCOSE (AUTOMATED) 2019-12-21 07:11:00 [facility] 2019-12-21 05:58:00 Jim Gardner [facility] TROPONIN I 2019-12-21 05:57:00 Jim Gardner [facility] UREA NITROGEN, URINE 2019-12-21 05:53:[address] [facility] SODIUM, URINE RANDOM 2019-12-21 05:53:00 Jim Gardner [facility] ADC / LCC - DRUG SCREEN 2019-12-21 05:53:00 Jim Gardner [facility] PROTEIN CREAT RATIO URINE 2019-12-21 05:53:00 Jim Gardner [facility] CT HEAD WO CONTRAST 2019-12-21 01:03:10 Etienne Taylor [facility] XR CHEST 1 VW 2019-12-21 00:43:19 Etienne Taylor [facility] CREATINE KINASE 2019-12-21 00:19:00 Jim Gardner [facility] URIC ACID 2019-12-21 00:19:00 Jim Gardner [facility] LIPASE 2019-12-21 00:19:00 Etienne Taylor [facility] MAGNESIUM 2019-12-21 00:19:00 Jim Gardner [facility] TROPONIN I 2019-12-21 00:19:00 Etienne Taylor [facility] HEPATIC FUNCTION PANEL 2019-12-21 00:19:00 Etienne Taylor [facility] ([id number]) (ALB,T.PRO,[facility] T,BU/BC,ALT,AST,ALK PHOS) BASIC METABOLIC PANEL (NA, 2019-12-21 00:19:00 Etienne Taylor [facility] K, CL, CO2, GLUCOSE, BUN, Medica l Branch CREATININE, [place]) ETHANOL 2019-12-21 00:19:00 Etienne Taylor [facility] CBC WITH DIFFERENTIAL 2019-12-21 00:19:00 [facility] GLYC[facility]EMOGLOBIN 2019-12-21 00:19:00 Jim Gardner [facility] (A1C) [facility] PROTHROMBIN TIME / INR 2019-12-21 00:19:00 Etienne Taylor [facility] ACTIVATED PARTIAL THRMPLAS 2019-12-21 00:19:00 Etienne Taylor [facility] N-TERMINAL PRO-BNP 2019-12-21 00:19:00 [facility] EKG-12 LEAD 2019-12-21 00:18:19 Etienne Taylor [facility] EKG-12 LEAD 2019-12-21 00:02:50 Etienen Taylor [facility] URINALYSIS 2019-06-19 19:21:00 Shirley Shell [facility] COMP. METABOLIC PANEL 2019-06-19 17:23:00 Shirley Shell [facility] ([id number]) [facility] CBC WITH DIFFERENTIAL 2019-06-19 17:23:00 Shirley Shell [facility] CONSENT/REFUSAL FOR 2019-06-19 16:45:48 Doctor Unassigned, [facility] DIAGNOSIS AND TREATMENT [facility] CONSENT/REFUSAL FOR 2019-06-19 16:45:30 Doctor Unassigned, [facility] DIAGNOSIS AND TREATMENT [facility] HOME HEALTH - OTHER 2019-06-11 05:01:00 Doctor Unassigned, [facility] ZINC, SERUM 2019-05-21 18:53:00 Jenna Padron [facility] [place] VITAMIN B6, PLASMA 2019-05-21 18:53:00 Jenna Padron [facility] [place] VITAMIN B12, LEVEL 2019-05-21 18:53:00 [facility] [place] FOLATE 2019-05-21 18:53:00 Jenna Padron [facility] [place] BASIC METABOLIC PANEL (NA, 2019-05-21 18:53:00 Michelle Padron [facility] K, CL, CO2, GLUCOSE, BUN, A Medica l Branch CREATININE, CA) VITAMIN B1 (THIAMINE), 2019-05-21 18:53:00 Jenna Padron [facility] WHOLE BLOOD Medical [place] ASSIGNMENT OF BENEFITS 2019-05-21 18:34:29 Doctor Unassigned, [facility] Fusion of Joint of 2015-08-17 00:00:00 [facility] Cervical Spine by Anterior Approach for Deformity of Cervical Spine Extraction of Cataract [facility] Plan of Care Planned Activity Planned Date Details Comments Source Diagnostic Test Pending 2022-02-10 00:00:00 drug screen, 14 [facility] drugs (detectimed), urine [code = drug screen, 14 drugs (detectimed), urine] Encounters Start End Encounter Admission Attending Care Care Encounter Source Date/Time Date/Time Type Type Clinicians Facility Department ID 2023-05-16 [facility] [id number] [facility] 23:54:44 [id number] Beatt[place] 2023-05-16 [facility] [id number] [facility] 14:32:58 [id number] [place] 2022-01-21 Outpatient [facility] [id number] [place] 14:57:13 [id number] [facility] 2022-01-19 Outpatient [facility] [id number] [place] 13:25:12 [id number] [facility] 2023-07-07 2023-07-07 Outpatient [facility] PRIV PRIV [id number] [facility] 00:00:00 00:00:00 d_J [id number] Medica l 2023-07-07 2023-07-07 Outpatient [facility] PRIV PRIV [id number] [facility] 00:00:00 00:00:00 d_J [id number] Medica l 2023-07-07 2023-07-07 Outpatient [facility] PRIV PRIV 239 [id number] [facility] 00:00:00 00:00:00 d_J [id number] Medica l 2023-07-07 2023-07-07 Outpatient [facility] PRIV PRIV 239 [id number] [facility] 00:00:00 00:00:00 d_J [id number] Medica l 2023-07-07 2023-07-07 Outpatient [facility] PRIV PRIV 239 [id number] [facility] 00:00:00 00:00:00 d_J [id number] Medica l 2023-07-07 2023-07-07 Outpatient [facility] PRIV PRIV 239 [id number] [facility] 00:00:00 00:00:00 d_J [id number] Medica l 2023-07-07 2023-07-07 Outpatient [facility] PRIV PRIV 239 [id number] [facility] 00:00:00 00:00:00 d_J [id number] Medica l 2023-07-07 2023-07-07 Outpatient [facility] PRIV PRIV 239 [id number] [facility] 00:00:00 00:00:00 d_J [id number] Medica l 2023-07-07 2023-07-07 Outpatient [facility] PRIV PRIV 239 [id number] [facility] 00:00:00 00:00:00 d_J [id number] Medica l 2023-07-07 2023-07-07 Outpatient [facility] PRIV PRIV 239 [id number] [facility] 00:00:00 00:00:00 d_J [id number] Medica l 2023-05-02 2023-05-02 Outpatient [facility] PRIV PRIV 239 [id number] [facility] 00:00:00 00:00:00 d_J [id number] Medica l 2023-05-02 2023-05-02 Outpatient [facility]od PRIV PRIV 239 [id number] [facility] 00:00:00 00:00:00 d_J [id number] Medica l 2023-05-02 2023-05-02 Outpatient [facility]Tod PRIV PRIV 239 [id number] [facility] 00:00:00 00:00:00 d_J [id number] Medica l 2023-05-02 2023-05-02 Outpatient [facility]Tod PRIV PRIV 239 [id number] [facility] 00:00:00 00:00:00 d_J [id number] Medica l 2023-05-02 2023-05-02 Outpatient [facility] PRIV PRIV 239 [id number] [facility] 00:00:00 00:00:00 d_J [id number] Medica l 2023-05-02 2023-05-02 Outpatient [facility]od PRIV PRIV 239 [id number] [facility] 00:00:00 00:00:00 d_J [id number] Medica l 2023-05-02 2023-05-02 Outpatient [facility]Tod PRIV PRIV 239 [id number] [facility] 00:00:00 00:00:00 d_J [id number] Medica l 2023-05-02 2023-05-02 Outpatient [facility]Tod PRIV PRIV 239 [id number] [facility] 00:00:00 00:00:00 d_J [id number] Medica l 2023-05-02 2023-05-02 Outpatient [facility]Tod PRIV PRIV 239 [id number] [facility] 00:00:00 00:00:00 d_J [id number] Medica l 2023-03-30 2023-03-30 Outpatient [facility] PRIV PRIV 239 [id number] [facility] 00:00:00 00:00:00 d_J [id number] Medica l 2023-03-30 2023-03-30 Outpatient [facility]Tod PRIV PRIV 239 [id number] [facility] 00:00:00 00:00:00 d_J [id number] Medica l 2023-03-30 2023-03-30 Outpatient [facility]Tod PRIV PRIV 239 [id number] [facility] 00:00:00 00:00:00 d_J [id number] Medica l 2023-03-30 2023-03-30 Outpatient [facility]Tod PRIV PRIV 239 [id number] [facility] 00:00:00 00:00:00 d_J [id number] Medica l 2023-03-15 2023-03-15 Outpatient [facility]Tod PRIV PRIV 239 [id number] [facility] 00:00:00 00:00:00 d_J [id number] Medica l 2023-03-15 2023-03-15 Outpatient [facility]Tod PRIV PRIV 239 [id number] [facility] 00:00:00 00:00:00 d_J [id number] Medica l 2023-03-15 2023-03-15 Outpatient [facility]Tod PRIV PRIV 239 [id number] [facility] 00:00:00 00:00:00 d_J [id number] Medica l 2023-03-15 2023-03-15 Outpatient [facility]Tod PRIV PRIV 239 [id number] [facility] 00:00:00 00:00:00 d_J [id number] Medica l 2023-03-15 2023-03-15 Outpatient [facility]Tod PRIV PRIV 239 [id number] [facility] 00:00:00 00:00:00 d_J [id number] Medica l 2023-02-21 2023-02-21 Julia [facility] [id number] [facility] 00:00:00 00:00:00 KATHRINE Valenzuela: Health - Med ical [address] [address] , Ph. 2023-02-14 2023-02-14 Outpatient [facility]Tod PRIV PRIV 239 [id number] [facility] 00:00:00 00:00:00 d_J [id number] Medica l 2023-02-14 2023-02-14 Outpatient [facility] PRIV PRIV 239 [id number] [facility] 00:00:00 00:00:00 d_J [id number] Medica l 2023-02-14 2023-02-14 Outpatient [facility]Tod PRIV PRIV 239 [id number] [facility] 00:00:00 00:00:00 d_J [id number] Medica l 2023-02-14 2023-02-14 Outpatient [facility]Tod PRIV PRIV 239 [id number] [facility] 00:00:00 00:00:00 d_J [id number] Medica l 2023-01-25 2023-01-25 [facility] [id number] [facility] 00:00:00 00:00:00 Nicolas PA: Health - Med ical [address] [address] , Ph. 2023-01-23 2023-01-23 Outpatient [facility]Tod PRIV PRIV 239 [id number] [facility] 00:00:00 00:00:00 d_J [id number] Medica l 2023-01-23 2023-01-23 Outpatient [facility]Tod PRIV PRIV 239 [id number] [facility] 00:00:00 00:00:00 d_J [id number] Medica l 2023-01-23 2023-01-23 Outpatient [facility]Tod PRIV PRIV 239 [id number] [facility] 00:00:00 00:00:00 d_J [id number] Medica l 2023-01-03 2023-01-03 [facility] [id number] [facility] 00:00:00 00:00:00 KATHRINE Valenzuela: Health - Med ical [address] [address] , Ph. 2022-12-30 2022-12-30 [facility] [id number] [facility] 00:00:00 00:00:00 KATHRINE Valenzuela: Health - Med ical [address] [address] , Ph. 2022-12-27 2022-12-27 [facility] 307 [facility] 00:00:00 00:00:00 KATHRINE Valenzuela: Health - Med ical [address] [address] , Ph. 2022-12-06 2022-12-06 Sj Villanueva [facility] 202 [id number] [facility] 00:00:00 00:00:00 Milvia [facility] - Med ical MD: [address] [address] , Ph. 2022-12-03 2022-12-[facility] 211 [facility] 00:00:00 00:00:00 KATHRINE Valenzuela: Health - Med ical [address] [address] , Ph. 2022-12-02 2022-12-02 Outpatient [facility]Tod PRIV PRIV 239 [id number] [facility] 00:00:00 00:00:00 d_J [id number] Medica l 2022-12-02 2022-12-02 Outpatient [facility]Tod PRIV PRIV 239 [id number] [facility] 00:00:00 00:00:00 d_J [id number] Medica l 2022-12-02 2022-12-02 Outpatient [facility]Tod PRIV PRIV 239 [id number] [facility] 00:00:00 00:00:00 d_J [id number] Medica l 2022-12-02 2022-12-02 Outpatient [facility]Tod PRIV PRIV 239 [id number] [facility] 00:00:00 00:00:00 d_J [id number] Medica l 2022-12-02 2022-12-02 Outpatient [facility]Tod PRIV PRIV 239 [id number] [facility] 00:00:00 00:00:00 d_J [id number] Medica l 2022-12-02 2022-12-02 Outpatient [facility]Tod PRIV PRIV 239 [id number] [facility] 00:00:00 00:00:00 d_J [id number] Medica l 2022-12-02 2022-12-02 Outpatient [facility]Tod PRIV PRIV 239 [id number] [facility] 00:00:00 00:00:00 d_J [id number] Medica l 2022-12-02 2022-12-02 Outpatient [facility]Tod PRIV PRIV 239 [id number] [facility] 00:00:00 00:00:00 d_J [id number] Medica l 2022-11-16 2022-11-16 Julia [facility] [id number] [facility] 00:00:00 00:00:00 KATHRINE Valenzuela: Health - Med ical [address] [address] , Ph. 2022-11-08 2022-11-08 Julia [facility] [id number] [facility] 00:00:00 00:00:00 KATHRINE Valenzuela: Health - Med ical [address] [address] , Ph. 2022-10-25 2022-10-25 Julia [facility] [id number] [facility] 00:00:00 00:00:00 Nicolas PA: Health - Med ical [address] [address] , Ph. 2022-10-14 2022-10-14 Julia [facility] [id number] [facility] 00:00:00 00:00:00 KATHRINE Valenzuela: Health - Med ical [address] [address] , Ph. 2022-10-10 2022-10-11 Emergency Emergency Guirges, [facility] [id number] [facility] 14:48:00 02:48:00 Jaylin Crane 2022-10-102022-10-10 Emergency [facility] [id number] [facility] 14:48:00 14:48:00 86 2022-10-07 2022-10-07 Julia [facility] 216 [facility] 00:00:00 00:00:00 KATHRINE Valenzuela: Health - Med ical [address] [address] , Ph. 2022-09-20 2022-09-20 Julia [facility] [id number] [facility] 00:00:00 00:00:00 KATHRINE Valenzuela: Health - Med ical [address] [address] , Ph. 2022-09-07 2022-09-07 Outpatient [facility]Tod PRIV PRIV 239 [id number] [facility] 00:00:00 00:00:00 d_J [id number] Medica l 2022-09-07 2022-09-07 Outpatient [facility]Tod PRIV PRIV 239 [id number] [facility] 00:00:00 00:00:00 d_J [id number] Medica l 2022-09-07 2022-09-07 Outpatient [facility]Tod PRIV PRIV 239 [id number] [facility] 00:00:00 00:00:00 d_J [id number] Medica l 2022-09-07 2022-09-07 Outpatient [facility]Tod PRIV PRIV 239 [id number] [facility] 00:00:00 00:00:00 d_J [id number] Medica l 2022-09-07 2022-09-07 Outpatient [facility]od PRIV PRIV 239 [id number] [facility] 00:00:00 00:00:00 d_J [id number] Medica l 2022-09-07 2022-09-07 Outpatient [facility] PRIV PRIV 239 [id number] [facility] 00:00:00 00:00:00 d_J [id number] Medica l 2022-09-07 2022-09-07 Outpatient [facility] PRIV PRIV 239 [id number] [facility] 00:00:00 00:00:00 d_J [id number] Medica l 2022-09-07 2022-09-07 Outpatient [facility] PRIV PRIV 239 [id number] [facility] 00:00:00 00:00:00 d_J [id number] Medica l 2022-09-07 2022-09-07 Outpatient [facility]Tod PRIV PRIV 239 [id number] [facility] 00:00:00 00:00:00 d_J [id number] Medica l 2022-09-07 2022-09-07 Outpatient [facility] PRIV PRIV 239 [id number] [facility] 00:00:00 00:00:00 d_J [id number] Medica l 2022-09-07 2022-09-07 Outpatient [facility] PRIV PRIV 239 [id number] [facility] 00:00:00 00:00:00 d_J [id number] Medica l 2022-09-02 2022-09-02 [facility] 111 [facility] 00:00:00 00:00:00 KATHRINE Valenzuela: Health - Med ical [address] [address] , Ph. 2022-08-27 2022-08-27 Outpatient [facility]Tod PRIV PRIV 239 [id number] [facility] 00:00:00 00:00:00 d_J [id number] Medica l 2022-08-23 2022-08-23 Outpatient [facility]Tod PRIV PRIV 239 [id number] [facility] 00:00:00 00:00:00 d_J [id number] Medica l 2022-08-12 2022-08-12 Outpatient [facility]Tod PRIV PRIV 239 [id number] [facility] 00:00:00 00:00:00 d_J [id number] Medica l 2022-08-12 2022-08-12 Julia [facility] 021 [facility] 00:00:00 00:00:00 KATHRINE Valenzuela: Health - Med ical [address] [address] , Ph. 2022-08-09 2022-08-09 Sj Villanueva [facility] 202 [facility] 00:00:00 00:00:00 Milvia [facility] - Med ical MD: [address] [address] , Ph. 2022-07-19 2022-07-19 Outpatient [facility]Tod PRIV PRIV 239 [id number] [facility] 00:00:00 00:00:00 d_J [id number] Medica l 2022-07-19 2022-07-19 Julia [facility] [id number] [facility] 00:00:00 00:00:00 KATHRINE Valenzuela: Health - Med ical [address] [address] , Ph. 2022-06-09 2022-06-09 Outpatient [facility]Tod PRIV PRIV [id number] [facility] 00:00:00 00:00:00 d_J [id number] Medica l 2022-06-02 2022-06-02 Outpatient [facility]Tod PRIV PRIV 239 [id number] [facility] 00:00:00 00:00:00 d_J [id number] Medica l 2022-06-02 2022-06-02 Sj Goodne [facility] 202 [facility] 00:00:00 00:00:00 Milvia [facility] Med ical MD: [address] [address] , Ph. 2022-06-02 2022-06-02 Outpatient Milvia, [facility] PRIV [id number] 00:00:00 00:00:00 Sj Goodne [id number] 2022-05-27 2022-05-27 Outpatient [facility]Tod PRIV PRIV [id number] [facility] 00:00:00 00:00:00 d_J [id number] Medica l 2022-05-27 2022-05-27 Julia [facility] [id number] [facility] 00:00:00 00:00:00 KATHRINE Valenzuela: Health - Med ical [address] [address] , Ph. 2022-05-27 2022-05-27 Outpatient Nicolas, PRIV PRIV [id number] 00:00:00 00:00:00 Julia cbf-[id number]-[id number] 2022-04-29 2022-04-29 Outpatient [facility]Tod PRIV PRIV [id number] [facility] 10:08:00 10:08:00 d_J [id number] Medica l 2022-04-28 2022-04-28 Outpatient [facility]Tod PRIV PRIV [id number] [facility] 12:58:00 12:58:00 d_J [id number] Medica l 2022-04-27 2022-04-27 Outpatient [facility] PRIV PRIV 239 [id number] [facility] 01:45:00 01:45:00 d_J [id number] Medica l 2022-04-26 2022-04-26 Outpatient [facility] PRIV PRIV [id number] [facility] 05:12:00 05:12:00 d_J [id number] Medica l 2022-04-26 2022-04-26 Julia [facility] [id number] [facility] 00:00:00 00:00:00 KATHRINE Valenzuela: Health - Med ical [address] [address] , Ph. 2022-04-26 2022-04-26 Outpatient Nicolas, PRIV PRIV [id number] a-f 00:00:00 00:00:00 Julia [id number] [id number] 2022-04-15 2022-04-15 Outpatient [facility]Tod PRIV PRIV [id number] [facility] 09:30:00 09:30:00 d_J [id number] Medica l 2022-04-14 2022-04-14 Outpatient [facility]Tod PRIV PRIV [id number] [facility] 04:53:00 04:53:00 d_J [id number] Medica l 2022-04-11 2022-04-11 Outpatient [facility]Tod PRIV PRIV 239 [id number] [facility] 11:11:00 11:11:00 d_J [id number] Medica l 2022-04-09 2022-04-09 Outpatient [facility]Tod PRIV PRIV [id number] [facility] 02:56:00 02:56:00 d_J [id number] Medica l 2022-04-07 2022-04-07 Sjviviane Goodne [facility] 16 [facility] 00:00:00 00:00:00 Milvia [facility] - Med ical MD: [address] [address] , Ph. 2022-04-07 2022-04-07 Outpatient Milvia, [facility] PRIV [id number] 00:00:00 00:00:00 Sj Villanueva [id number] 2022-04-05 2022-04-05 Outpatient [facility]Tod PRIV PRIV [id number] [facility] 03:50:00 03:50:00 d_J [id number] Medica l 2022-04-05 2022-04-05 Outpatient Nicolas, PRIV PRIV [id number] 00:00:00 00:00:00 Julia [id number]-11ec-b [id number] 2022-04-05 2022-04-05 [facility] [id number] [facility] 00:00:00 00:00:00 KATHRINE Valenzuela: Health - Med ical [address] [address] , Ph. 2022-04-05 2022-04-05 Outpatient Nicolas, PRIV PRIV [id number] 00:00:00 00:00:00 Julia [id number] 2022-03-26 2022-03-26 Outpatient [facility]Tod PRIV PRIV [id number] [facility] 10:41:00 10:41:00 d_J [id number] Medica l 2022-03-18 2022-03-18 Outpatient [facility]Tod PRIV PRIV [id number] [facility] 11:10:00 11:10:00 d_J [id number] Medica l 2022-03-18 2022-03-18 Outpatient Nicolas, PRIV PRIV [id number] [id number] 00:00:00 00:00:00 Julia [id number] [id number] 2022-03-18 [facility] [id number] [facility] 00:00:00 00:00:00 KATHRINE Valenzuela: Health - Med ical [address] [address] , Ph. 2022-03-16 2022-03-16 Outpatient [facility]_Tod PRIV PRIV [id number] [facility] 07:59:00 07:59:00 d_J [id number] Medica l 2022-02-18 2022-02-18 Outpatient [facility]Tod PRIV PRIV [id number] [facility] 08:16:00 08:16:00 d_J [id number] Medica l 2022-02-10 2022-02-10 Outpatient [facility]Tod PRIV PRIV [id number] [facility] 08:37:00 08:37:00 d_J [id number] Medica l 2022-02-10 2022-02-10 Outpatient Milvia, PRIV PRIV [id number] 00:00:00 00:00:00 Sj Villanueva [id number] 2022-02-10 2022-02-10 Sj Villanueva [facility] 00:00:00 00:00:00 Milvia [facility] - Med icanellie MD: [address] [place] [address] , Ph. 2022-02-10 2022-02-10 Outpatient Milvia, PRIV PRIV [id number] 00:00:00 00:00:00 Sj Villanueva [id number]-[id number] [id number] 2022-02-04 2022-02-04 Outpatient [facility]_Tod PRIV PRIV [id number] [facility] 02:11:00 02:11:00 d_J [id number] Medica l 2022-02-03 2022-02-03 Outpatient [facility]_Tod PRIV PRIV [id number] [facility] 07:19:00 07:19:00 d_J [id number] Medica l 2022-02-03 2022-02-03 Outpatient [place], PRIV PRIV [id number] 00:00:00 00:00:00 January [id number] 2022-02-03 2022-02-03January [facility] 14 [facility] 00:00:00 00:00:00 [place], [facility] - Medic al HYPNOTHERAPIST: [address] [place] [address] , Ph. 2022-02-03 2022-02-03 Outpatient [place], PRIV PRIV [id number] 00:00:00 00:00:00 January ec9-11ec-b [id number] 2022-01-31 2022-01-31 Outpatient [facility]_Tod PRIV PRIV [id number] [facility] 01:28:00 01:28:00 d_J [id number] Medica l 2022-01-28 2022-01-28 Outpatient [facility]_Spa PRIV PRIV [id number] [facility] 03:29:00 03:29:00 Nicolás [id number] Medica l 2021-06-03 2021-06-03 [facility] 1.2.840.114 [id number] [facility] 11:28:09 12:01:48 Visit Jerome Rosario [id number] [place] [id number] Me dical nal [address] [facility] 2021-06-03 2021-06-03 [facility] [id number] Univers 11:00:00 11:00:00 [facility] 2021-05-03 2021-05-03 [facility] [id number] Univers 09:15:00 09:15:00 [facility] 2021-01-02 2021-01-02 [facility] 1.2.840.114 [id number] Univers 00:00:00 00:00:00 Outreach Charlie PRIMARY [id number] i ty of [facility] [place] [id number] Tn dical [address] 2020-12-14 2020-12-14 Transition Umang Reis 1.2.840.114 [id number] Univers 00:00:00 00:00:00 of Care Jolie Alba [id number] [id number] [address] 2020-10-02 2020-10-20 Inpatient E [facility] [id number] [place] 17:26:00 18:05:00 MANGO Mendoza l [place] 2020-08-31 2020-08-31 Outpatient R SOPHIA [facility] [id number] Univers 10:00:00 10:00:00 MARIANNE farah f [facility] 2020-08-06 2020-08-27 Inpatient E BR[facility], [facility] [id number] [place] 23:48:00 19:00:00 MANGO Medica l [place] 2020-06-24 2020-07-11 Inpatient E BRAMOMETHODIST [facility] [id number] [place] 14:38:00 13:30:00 [facility] 2020-07-09 2020-07-09 Orders Doctor DIANA 1.2.840.114 [id number] Univers 00:00:00 00:00:00 Only Unassigned, JAZ 350.1.13.10 ity of [place] [facility] 4.2.7.2.686 Hugo as [id number] [facility] [address] Branch 2020-06-05 2020-06-05 Telephone [facility] 1.2.840.114 [id number] Univers 00:00:00 00:00:00 Jenna Rosario [id number] [id number] [phone] [address] 2020-03-17 2020-03-17 Outpatient R SANTOS GARCIA [facility] [id number] Univers 11:20:00 11:20:00 SANTOS GARCIA ity of [facility] 2020-03-02 2020-03-02 Transition Umang Moreno 1.2.840.114 [id number] Univers 00:00:00 00:00:00 of Care Shirley Alba [id number] it y of [place] [phone] [facility] [address] 2020-02-24 2020-02-28 [facility] Kai Bhatt 1.2.840.1 14 [id number] Univers 09:59:27 17:45:00 Encounter Danilo Raphael [id number] ity of [place] [facility] 4.2.7 .2.686 [place] Jesusita Henderson [phone] Medical Annette Reed [address] 2020-02-24 2020-02-28 Inpatient X TOBIAS [facility] [id number] Univers 09:59:27 17:45:00 JESUSITA morgan o f [facility] 2020-02-27 2020-02-27 [facility] 1.2.840.114 [id number] Univers 00:00:00 00:00:00 Jenna Rosario [id number] [place] [phone] [address] 2020-02-18 2020-02-18 [facility] 1.2.840.114 [id number] Univers 00:00:00 00:00:00 Jenna Rosario [id number] [place] [phone] [address] 2020-02-13 2020-02-13 [id number] Univers 13:40:00 13:40:00 JENNA ity of [facility] 2020-02-13 2020-02-13 [facility]ici [facility] 1.2.840.114 [id number] Univers 08:16:30 08:56:30 ne Visit Jenna Rosario 350.1.13.10 [place] [phone] [address] 2020-02-13 2020-02-13 Telephone [facility] 1.2.840.114 [id number] Univers 00:00:00 00:00:00 Jenna Rosario [id number] [place] of [id number] [phone] [address] 2020-02-13 2020-02-13 Patient Hobbs [facility] 1.2.840.114 [id number] Univers 00:00:00 00:00:00 Outreach Adina N Marlene [id number] it[place] of [place] [phone] [address] 2020-02-01 2020-02-01 Transition Umang Mckeon 1.2.840.114 [id number] Univers 00:00:00 00:00:00 of Care Karin Alba 350.1.13.10 i ty of [place].2.[place] [phone] [facility] [address] 2020-01-28 2020-01-31 Hospital Kiersten Mares [facility] 1.2.840.1 14 [id number] Univers 21:26:48 11:20:00 Encounter Yessenia Siddiqi Marlene [id number] ity of [place] 4[place].2.[place] [phone] [facility] [address] 2020-01-28 2020-01-31 Inpatient X NEERU [facility] [id number] Univers 21:26:48 11:20:00 YESSENIA ity [facility] 2020-01-30 2020-01-30 Telephone [facility] 1.2.840.114 [id number] Univers 00:00:00 00:00:00 Jenna Rosario 350.1.13.10 [place] [phone] Tn dical nal 044 [facility] 2020-01-27 2020-01-27 [facility] 1.2.840.114 [id number] Univers 08:13:49 14:13:38 ne Visit Irving Rosario 350.1.13.10 [place] [phone] Tn dical nal 059 [facility] 2020-01-27 2020-01-27 Outpatient R ADRIANA [facility] [id number] Univers 10:30:00 10:30:00 JUAN A ity [facility] 2020-01-24 2020-01-24 [facility] 1.2.840.114 [id number] Univers 00:00:00 00:00:00 Secure Msg Jenna Victoria 350.1.13.10 ity of [place] 4.2.7.2.686 [place] Professio [phone] Tn dical nal 044 [facility] 2020-01-20 2020-01-20 Outpatient R VITO [facility] [id number] Univers 13:00:00 13:00:00 JENNA itviviane [facility] 2020-01-17 2020-01-17 Outpatient R MALIKA [facility] [id number] Univers 10:30:00 10:30:00 JEROME ity [facility] 2020-01-17 2020-01-17 [facility]ici [facility] 1.2.840.114 [id number] Univers 08:24:57 08:54:57 ne Visit Jerome Rosario 350.1.13.10 [place] [phone] Tn dical nal 204 [facility] 2020-01-08 2020-01-08 Outpatient R LUISA [facility] [id number] Univers 11:00:00 11:00:00 RADHA ity [facility] 2020-01-01 2020-01-01 [facility] 1.2.840.114 [id number] Univers 00:00:00 00:00:00 Jenna Rosario 350.1.13.10 [place] [phone] Tn dical nal 231 [facility] 2019-12-31 2019-12-31 Transition Umang Gonzáles 1.2.840.114 [id number] Univers 00:00:00 00:00:00 of Care Og Vaibhav Alba 350.1.13.10 it[place] of [place] [phone] [facility] [address] 2019-12-27 2019-12-30 Inpatient X DANILO RAPHAEL [facility] JOHN [id number] Univers 13:17:35 16:05:00 ity of [facility] 2019-12-27 2019-12-30 Hospital Jadiel Tinoco [facility] 1.2.840 .114 [id number] Univers 13:17:35 16:05:00 Encounter Danilo Raphael 350.1.13.10 [place] [phone] [facility] [address] 2019-12-27 2019-12-27 Office [facility] 1.2.840.114 [id number] Univers 12:12:33 12:52:33 Visit Jenna Rosario 350.1.13.10 [place] [phone] [facility] 231 [facility] 2019-12-27 2019-12-27 Outpatient R VITO [facility] [id number] Univers 12:20:00 12:20:00 JENNA valley [facility] 2019-12-24 2019-12-24 Outpatient R GEOVANNA [facility] [id number] Univers 11:00:00 11:00:00 MEHNAZ cheyenne [facility] 2019-12-20 2019-12-21 Outpatient X JJ [facility] [id number] Univers 17:12:19 16:12:00 JIM morgan [facility] 2019-12-20 2019-12-21 Emergency Etienne Taylor [facility] 1.2. 840.114 [id number] Univers 17:12:19 16:12:00 Jmi Gardner 350.1.13.10 [place] [phone] [facility] [address] [place] [address] 2019-07-12 2019-07-12 Telephone Padron, [facility] 1.2.840.114 [id number] Univers 00:00:00 00:00:00 Jenna Rosario 350.1.13.10 [place] [phone] [facility] 044 [facility] 2019-07-03 2019-07-03 Telephone [facility] 1.2.840.114 [id number] Univers 00:00:00 00:00:00 Jenna Rosario 350.1.13.10 [place] [phone] [facility] 231 [facility] 2019-06-27 2019-06-27 Refill [facility] 1.2.840.114 [id number] Univers 00:00:00 00:00:00 Jenna Rosario 350.1.13.10 [place] [phone] [address] 2019-06-19 2019-06-19 Emergency Shirley Shell [facility] 1.2.840.114 [id number] Univers 11:49:23 16:00:00 Scarlet Marlene 350.1.13.10 i [place] of [place] [phone] [place] [id number] [place] 2019-06-19 2019-06-19 Orders Doctor DIANA 1.2.840.114 [id number] Univers 00:00:00 00:00:00 Only Unassigned, JAZ 350.1.13.10 ity of [facility] 4.2.7.2.686 [place] [phone] [address] 2019-06-17 2019-06-17 Telephone [facility] 1.2.840.114 [id number] Univers 00:00:00 00:00:00 eJnna Rosario 350.1.13.10 [place] [phone] [facility] 044 [facility] 2019-06-13 2019-06-13 Telephone [facility] 1.2.840.114 [id number] Univers 00:00:00 00:00:00 Jenna Rosario 350.1.13.10 [place] [phone] [facility] 231 [facility] 2019-06-11 2019-06-11 Orders Doctor DIANA 1.2.840.114 [id number] Univers 00:00:00 00:00:00 Only Unassigned, JAZ 350.1.13.10 ity of [facility] 4.2.7.2.686 [place] [phone] [address] 2019-06-03 2019-06-03 Telephone [facility] 1.2.840.114 [id number] Univers 00:00:00 00:00:00 Jenna Rosario 350.1.13.10 [place] [phone] [facility] 044 [facility] 2019-06-02 2019-06-02 [facility] Padron, [facility] 1.2.840.114 [id number] Univers 00:00:00 00:00:00 Management Jenna Rosario 350.1.13.10 [place] [phone] [facility] 231 [facility] 2019-05-31 2019-05-31 [facility] 1.2.840.114 [id number] Univers 00:00:00 00:00:00 Jenna Rosario 350.1.13.10 [place] [phone] [facility] 231 [facility] 2019-05-27 2019-05-27 Bárbara Garcia [facility] 1.2.840.114 [id number] Univers 00:00:00 00:00:00 Santos Rosario 350.1.13.10 [place] [phone] [facility] 092 [facility] 2019-05-27 2019-05-27 Veradale Lourdes [facility] 1.2.840.114 [id number] Univers 00:00:00 00:00:00 Alexia Rosario 350.1.13.10 i [place] [phone] [facility] 231 [facility] 2019-05-23 2019-05-23 [facility] 1.2.840.114 [id number] Univers 00:00:00 00:00:00 Jenna Rosario 350.1.13.10 [place] [phone] [facility] 044 [facility] 2019-05-21 2019-05-21 [facility] 1.2.840.114 [id number] [facility] 12:17:34 16:11:21 Visit Jenna Rosario 350.1.13.10 [place] [phone] [address] 2019-05-21 2019-05-21 Faceter 1, Ad[facility] Lab [facility] 1.2.840.114 [id number] [facility] 13:34:08 13:49:08 Visit Jenna Padron 350.1. 13.10 it[place] of [place] [phone] [facility] [address] [place] 2019-05-21 2019-05-21 Telephone Vito [facility] 1.2.840.114 [id number] Univers 00:00:00 00:00:00 Jenna Rosario 350.1.13.10 [place] [phone] [address] 2019-05-21 2019-05-21 Orders Doctor DIANA 1.2.840.114 [id number] Univers 00:00:00 00:00:00 Only Unassigned, JAZ 350.1.13.10 ity of [facility] 4.2.7.2.686 [place] [phone] [facility] [address] [place] 2019-05-20 2019-05-20 Refill Vito [facility] 1.2.840.114 [id number] Univers 00:00:00 00:00:00 Jenna Rosario 350.1.13.10 [place] [phone] [address] Results Test Description Test Time Test Comments Results Result Comments Source UC, Urine Culture 2022-10-10 22:32:00 Test Item Value Reference Range Interpretation Comme nts UC, Urine Culture (test code = UC) Providencia rettgeri Seward Count (test code = Seward Count) 50,000 Gram Negative [id number] 22:32:00 Test Item Value Reference Range Interpretation Comments Ampicillin (test code = AM) <=2 R Cefepime (test code = FEP) <=0.12 S Ceftriaxone (test code = CTR) <=0.25 S Cefuroxime (test code = JAIRON) <=1 S Ciprofloxacin (test code = CIP) <=0.25 S Gentamicin (test code = GM) <=1 S Imipenem (test code = IMI) 1 S Levofloxacin (test code = LEV) <=0.12 S Nitrofurantoin (test code = FD) 256 R Tobramycin (test code = TOB) <=1 S Trimethoprim/Sulfamethoxazole (test <=20 S code = SXT) Piperacillin/Tazobactam (test code = <=4 S TZP) UA, Urinalysis Rflx Cult/[id number] 22:05:00 Test Item Value Reference Range Interpretation Comments Color,Urine (test code = UCOL) Yellow Yellow Clarity,Urine (test code = Cloudy Clear A UCLAR) Ph, Urine (test code = UPH) 7.5 5.0-9.0 N Specific [place],Urine (test 1.015 1.005-1.030 N code = USG) Blood,Urine (test code = UBLD) Small mg/dL Negative A Protein,Urine (test code = >=1000 mg/dL Negative A UPRO) Glucose,Urine (UA) (test code Negative mg/dL Negative = UGLU) Ketones,Urine (test code = Negative mg/dL Negative UKET) Nitrate,Urine (test code = Positive Negative A UNIT) Bilirubin,Urine (test code = Negative mg/dL Negative UBIL) Urobilinogen,Urine (test code 1.0 E.U./dL Normal = UURO) Leukocyte Esterase,Urine (test Large mg/dL Negative A code = ULEU) UF REFLEXUF REFLEXUrine [id number] 22:05:00 Test Item Value Reference Range Interpretation Comments RBC,Urine (test code = URBC.HYPNOTHERAPIST) 3-5 /HPF 0-2 A WBC,Urine (test code = UWBC.HYPNOTHERAPIST) 26-50 /HPF 0-5 A Bacteria,Urine (test code = Moderate /HPF None Seen A UBACT.HYPNOTHERAPIST) Squamous Epithelial Cell,Urine 6-10 /HPF 0-5 A (test code = USQEPI.HYPNOTHERAPIST) Transitional Epi Cells,Urine 0-5 /HPF None Seen A (test code = UTREPI.XX) Hyaline Casts,Urine (test code 0-5 /HPF None Seen A = UHYALC.XX) UF REFLEXUF REFLEXDrug Screen,[id number] 22:05:00 Test Item Value Reference Range Interpretation Comments PCP Phencyclidine Screen,Urine (test Negative Negative code = PCPU) Amphetamine Screen,Urine (test code Negative Negative = AMPU) Methadone Screen,Urine (test code = Negative Negative METHU) Opiate Screen,Urine (test code = Negative Negative UOPIS) Barbituates Screen,Urine (test code Negative Negative = BARBU) Benzodiazepines Screen,Urine (test Negative Negative code = UBENZS) Cocaine Screen,Urine (test code = Negative Negative UCOCS) Cannabinoid Screen,Urine (test code Negative Negative = UTHCS) Propoxyphene Screen, Urine (test Negative Negative code = UPROP) Complete Blood Count Auto [id number] 19:05:00 Test Item Value Reference Range Interpretation Comments White Blood Count (test code = 10.0 x10 3/uL 4.4-10.5 N WBCT) Red Blood Count (test code = 4.04 x10 6/uL 4.10-5.70 L RBC) Hemoglobin (test code = HGBT) 12.4 g/dL 13.4-17.4 L Hematocrit (test code = HCTT) 37.2 % 38.7-52.0 L Mean Corpuscular Volume (test 92.10 fL 80.00-100.00 N code = MCV) Mean Corpuscular Hemoglobin 30.7 pg 27.0-32.5 N (test code = MCH) Mean Corpuscular HGB Conc 33.30 g/dL 32.00-37.50 N (test code = MCHC) RDW Coefficient of Variation 12.0 % 11.5-14.5 N (test code = RDWCV) Platelet Count (test code = 249.0 x10 3/uL 140.0-440.0 N PLTT) Mean Platelet Volume (test 10.1 fL code = MPV) Immature Granulocytes % (Auto) 0.4 % 0.0-5.0 N (test code = IMMGRAN%) Neutrophils % (Auto) (test 70.3 % 36.0-70.0 H code = NE%) Lymphocytes % (Auto) (test 20.7 % 12.0-44.0 N code = LY%) Monocytes % (Auto) (test code 7.3 % 0.0-11.0 N = MO%) Eosinophils % (Auto) (test 0.8 % 0.0-7.0 N code = EO%) Basophils % (Auto) (test code 0.5 % 0.0-2.0 N = BA%) Immature Granulocytes # (Auto) 0.04 x10 3/uL (test code = IMMGRAN#) Neutrophils # (Auto) (test 7.0 x10 3/uL 1.6-7.4 N code = NE#) Lymphocytes # (Auto) (test 2.07 x10 3/uL 0.50-4.60 N code = LY#) Monocytes # (Auto) (test code 0.73 x10 3/uL 0.00-1.20 N = MO#) Eosinophils # (Auto) (test 0.08 x10 3/uL 0.00-0.74 N code = EO#) Basophils # (Auto) (test code 0.05 x10 3/uL 0.00-0.21 N = BA#) nRBC Abs (test code = NRBCA) 0 nRBC Pct (test code = NRBCP) 0 % Coronavirus PCR, COVID19 [id number] 15:51:00 Test Item Value Reference Range Interpretation Comments Coronavirus PCR, For use under Emergency COVID19 Rapid (test Use Authorization (EUA) code = SARSCOV2) only. Coronavirus PCR, Reference Range: COVID19 Rapid (test Negative code = OSOGEUD27.1) SARS-CoV-2 PCR Result: Negative by RT-PCR (test code = SARS-CoV-2 PCR Result:) COVID-19 Status: AsymptomaticComprehensive Metabolic [id number] 15:31:00 Test Item Value Reference Range Interpretation Comments SODIUM (test code = NA) 139.0 mmol/L 136.0-145.0 N Potassium,K (test code = 4.7 mmol/L 3.0-5.1 N K) Chloride (test code = 106 mmol/L 98-107 N CL) Carbon Dioxide (test 24 mmol/L 20-31 N code = CO2) Anion Gap (test code = 9 mmol/L 5-15 N GAP) Blood Urea Nitrogen 18 mg/dL 9-23 N (test code = BUN) Creatinine (test code = 1.20 mg/dL 0.55-1.02 H CREATT) Creatinine Clr Calc 56.23 mL/min Pharmacy (test code = CRCLPHA) Estimated Glomerular 69 See_Comment L Reporte d eGFR is Filt Rate (test code = based on the EGFR.XX) CKD-EPI 202 equation thatdo es not use a race coefficient. Additional information can be found at:[id number]_n cb_ egfr_summary_fl robby 5.pdf (kidney.o rg) [Automated message] The system which generated this result transmit velasquez reference range : >=90 ml/min/1.73m2. The reference range was not used to interpret this result as normal/abnormal . BUN/Creatinine Ratio 15 ratio 10-20 N (test code = BCRATIO) Glucose (test code = 112 mg/dL 74-106 H GLU) Osmolality,Calculated 290.4 (test code = OSMOC) Calcium (test code = CA) 8.7 mg/dL 8.3-10.6 N Bilirubin,Total (test 0.4 mg/dL 0.2-1.1 N code = BILIT) Aspartate Amino 14 U/L 0-34 N Transferase (test code = AST) Alanine Aminotransferase 14 U/L 10-49 N (test code = ALT) Total Protein (test code 7.1 g/dL 5.7-8.2 N = TP) Albumin Level (test code 4.6 g/dL 3.2-4.8 N = ALB) Globulin (test code = 2.5 mg/dL 2.3-3.5 N GLOB) Albumin/Globulin Ratio 1.8 ratio 0.8-2.0 N (test code = AGRATIO) Alkaline Phosphatase 92 U/L 46-116 N (test code = ALP) Ethanol [id number] 15:31:00 Test Item Value Reference Range Interpretation Comments Ethanol (test code < 3 mg/dL The pharm acological = ETOH) response to blo od alcohol levels mayvary from individual to i ndividual. The fatal nelia ntrationhas been reported t o be >400mg/dL. GLUCOMETER GLUCOSE- LAB USE [id number] 11:40:00 Test Item Value Reference Range Interpretation Comments GLUCOMETER (test code = GMG) 192 mg/dL 70-100 H GLUCOMETER GLUCOSE- LAB USE [id number] 11:40:00 Test Item Value Reference Range Interpretation Comments GLUCOMETER (test code = GMG) 155 mg/dL 70-100 H GLUCOMETER GLUCOSE- LAB USE [id number] 16:43:00 Test Item Value Reference Range Interpretation Comments GLUCOMETER (test code = 91 mg/dL 70-100 Mete r ID: GMG) [id number] tor: 6680 [facility] GLUCOMETER GLUCOSE- LAB USE [id number] 11:34:00 Test Item Value Reference Range Interpretation Comments GLUCOMETER (test code 163 mg/dL 70-100 H CLEANE D METERMeter ID: = GMG) [id number] tor: 1331 AMAPOLLO SCOT T GLUCOMETER GLUCOSE- LAB USE [id number] 07:44:00 Test Item Value Reference Range Interpretation Comments GLUCOMETER (test 107 mg/dL 70-100 H CLEANED MET ERDAILY code = GMG) MAINTENANCEMete r ID: [id number] tor: 8413 TRISTAN MONTALVO GLUCOMETER GLUCOSE- LAB USE [id number] 19:11:00 Test Item Value Reference Range Interpretation Comments GLUCOMETER (test code = 96 mg/dL 70-100 JABARI ADOLPH METERMeter ID: GMG) [id number] tor: 7339 RUDOLPH MANJARREZ SON GLUCOMETER GLUCOSE- LAB USE [id number] 16:28:00 Test Item Value Reference Range Interpretation Comments GLUCOMETER (test code 114 mg/dL 70-100 H CLEANE D METERMeter ID: = GMG) [id number] tor: 6224 MACY PETERSEN TS GLUCOMETER GLUCOSE- LAB USE [id number] 12:09:00 Test Item Value Reference Range Interpretation Comments GLUCOMETER (test code = 90 mg/dL 70-100 Mete r ID: GMG) [id number] tor: 6680 [facility] GLUCOMETER GLUCOSE- LAB USE [id number] 07:37:00 Test Item Value Reference Range Interpretation Comments GLUCOMETER (test code = 97 mg/dL 70-100 JABARI ADOLPH METERMeter ID: GMG) [id number] tor: 8825 GILDARDO PEDRAZA RA GLUCOMETER GLUCOSE- LAB USE [id number] 19:42:00 Test Item Value Reference Range Interpretation Comments GLUCOMETER (test code 115 mg/dL 70-100 H CLEANE D METERMeter ID: = GMG) [id number] tor: 6497 CLINTON K EHINDE GLUCOMETER GLUCOSE- LAB USE [id number] 16:47:00 Test Item Value Reference Range Interpretation Comments GLUCOMETER (test code 112 mg/dL 70-100 H CLEANE D METERMeter ID: = GMG) [id number] tor: 3912 [facility] MARIANO GLUCOMETER GLUCOSE- LAB USE [id number] 11:23:00 Test Item Value Reference Range Interpretation Comments GLUCOMETER (test code 172 mg/dL 70-100 H CLEANE D METERMeter ID: = GMG) [id number] tor: 8280 [facility] GLUCOMETER GLUCOSE- LAB USE [id number] 07:45:00 Test Item Value Reference Range Interpretation Comments GLUCOMETER (test code = GMG) 234 mg/dL 70-100 H GLUCOMETER GLUCOSE- LAB USE [id number] 07:28:00 Test Item Value Reference Range Interpretation Comments GLUCOMETER (test code 100 mg/dL 70-100 CLEANE D METERMeter ID: = GMG) [id number] tor: 3912 [facility] MARIANO GLUCOMETER GLUCOSE- LAB USE [id number] 19:12:00 Test Item Value Reference Range Interpretation Comments GLUCOMETER (test code 90 mg/dL 70-100 Result Not = GMG) ConfirmedMeter ID: [id number] tor: 8582 AARON WINKLER GLUCOMETER GLUCOSE- LAB USE [id number] 16:43:00 Test Item Value Reference Range Interpretation Comments GLUCOMETER (test code 127 mg/dL 70-100 H CLEANE D METERMeter ID: = GMG) [id number] tor: 1328 REFUGIO BENNETT HY GLUCOMETER GLUCOSE- LAB USE [id number] 11:38:00 Test Item Value Reference Range Interpretation Comments GLUCOMETER (test code 133 mg/dL 70-100 H CLEANE D METERMeter ID: = GMG) [id number] tor: 8280 MARY FIELDS LTON GLUCOMETER GLUCOSE- LAB USE [id number] 07:25:00 Test Item Value Reference Range Interpretation Comments GLUCOMETER (test code = 100 mg/dL 70-100 Mete r ID: GMG) [id number] tor: 8280 MARY FIELDS LTON GLUCOMETER GLUCOSE- LAB USE [id number] 19:20:00 Test Item Value Reference Range Interpretation Comments GLUCOMETER (test code 138 mg/dL 70-100 H CLEANE D METERMeter ID: = GMG) [id number] tor: 7339 RUDOLPHALF MANJARREZ SON GLUCOMETER GLUCOSE- LAB USE [id number] 16:31:00 Test Item Value Reference Range Interpretation Comments GLUCOMETER (test code 100 mg/dL 70-100 CLEANE D METERMeter ID: = GMG) [id number] tor: 1328 REFUGIO BENNETT HY GLUCOMETER GLUCOSE- LAB USE [id number] 12:00:00 Test Item Value Reference Range Interpretation Comments GLUCOMETER (test code = 101 mg/dL 70-100 H Mete r ID: GMG) [id number] tor: 3007 LILLI NKS GLUCOMETER GLUCOSE- LAB USE [id number] 07:23:00 Test Item Value Reference Range Interpretation Comments GLUCOMETER (test code = 90 mg/dL 70-100 JABARI ADOLPH METERMeter ID: GMG) [id number] tor: 8413 TRISTAN ROSS LL GLUCOMETER GLUCOSE- LAB USE [id number] 19:33:00 Test Item Value Reference Range Interpretation Comments GLUCOMETER (test code = 102 mg/dL 70-100 H REPE AT TESTMeter ID: GMG) [id number] tor: 0040 NAHUN CHAPPELL GLUCOMETER GLUCOSE- LAB USE [id number] 16:29:00 Test Item Value Reference Range Interpretation Comments GLUCOMETER (test code 164 mg/dL 70-100 H CLEANE D METERMeter ID: = GMG) [id number] tor: 8825 GILDARDO PEDRAZA RA GLUCOMETER GLUCOSE- LAB USE [id number] 11:32:00 Test Item Value Reference Range Interpretation Comments GLUCOMETER (test code 142 mg/dL 70-100 H CLEANE D METERMeter ID: = GMG) [id number] tor: 6224 MACY GRIGSBY GLUCOMETER GLUCOSE- LAB USE [id number] 07:24:00 Test Item Value Reference Range Interpretation Comments GLUCOMETER (test code 106 mg/dL 70-100 H CLEANE D METERMeter ID: = GMG) [id number] tor: 1331 TIKA GARCÍA T GLUCOMETER GLUCOSE- LAB USE [id number] 19:05:00 Test Item Value Reference Range Interpretation Comments GLUCOMETER (test code 131 mg/dL 70-100 H CLEANE D METERMeter ID: = GMG) [id number] tor: 9867 TAMMY G ENTILE GLUCOMETER GLUCOSE- LAB USE [id number] 16:28:00 Test Item Value Reference Range Interpretation Comments GLUCOMETER (test code 155 mg/dL 70-100 H CLEANE D METERMeter ID: = GMG) [id number] tor: 6224 MACY GRIGSBY SARS-CoV (RAPID ANTIGEN)[id number] 14:34:00 Test Item Value Reference Range Interpretation Comments SARS-CoV (ANTIGEN) NEGATIVE NEGATIVE (test code = COVAG) COVID AG (test This test has been code = COVAGC) marketed under the FDA Emergency Use Authorization (EUA) to meet challenges of the COVID-19 pandemic. The validation standards normally enforced by the FDA and the [employer] the [place] [employer] (CAP) are more stringent than those required for this test. Therefore, the result should be interpreted with caution and close attention to other clinical and epidemiological data GLUCOMETER GLUCOSE- LAB USE [id number] 11:42:00 Test Item Value Reference Range Interpretation Comments GLUCOMETER (test code 123 mg/dL 70-100 H CLEANE D METERMeter ID: = GMG) [id number] tor: 4611 ANGELA JT AN CBC WITH MANUAL [id number] 11:24:00 Test Item Value Reference Range Interpretation Comments WBC (test code = WBC) 15.6 10\\S\\3/uL 4.5-11.0 H RBC (test code = RBC) 3.19 10\\S\\6/uL 4.20-5.60 L HGB (test code = HBG) 9.8 g/dL 14.0-18.0 L HCT (test code = HCT) 30.7 % 35.0-46.0 L MCV (test code = MCV) 96.2 fL 80.0-94.0 H MCH (test code = MCH) 30.7 pg 27.0-31.0 MCHC (test code = MCHC) 31.9 g/dL 32.0-36.0 L RDW (test code = RDW) 12.8 % 11.5-14.5 PLT (test code = PLT) 293 10\\S\\3/uL 130-400 MPV (test code = MPV) 10.6 fL 9.4-12.4 NEUTROP # (test code = 7.6 10\\S\\3/uL 2.0-8.0 NE#) LYMPH # (test code = 3.1 10\\S\\3/uL 1.2-4.0 LY#) MONOCYTE # (test code = 0.5 10\\S\\3/uL 0.0-1.1 MO#) EOSINOPH # (test code = 4.3 10\\S\\3/uL 0.0-0.7 H EO#) BASOPHIL # (test code = 0.1 10\\S\\3/uL 0.0-0.3 BA#) IG # (test code = IG#) 0.14 10\\S\\3/uL 0.00-0.06 H NRBC # (test code = 0.00 10\\S\\3/uL 0.00-0.01 NRBC#) NEUTROPH % (test code = 48.4 % 35.0-73.0 NE%) LYMPH % (test code = 19.6 % 20.0-55.0 L LY%) MONO % (test code = 3.3 % 2.5-10.0 MO%) EOSINOPH % (test code = 27.2 % 0.0-5.0 H EO%) BASOPHIL % (test code = 0.6 % 0.0-2.0 BA%) IG % (test code = IG%) 0.9 % 0.0-0.8 H NRBC% (test code = 0.0 % 0.0-0.2 NRBC%) MAN DIFF (test code = MANUAL HMDIFF) DIFFERENTIAL SEG (test code = SEG) 55 % 42-75 BAND (test code = BAND) 0 % 0-8 LYMPH (test code = 13 % 20-51 L LYMPH) MONO (test code = MONO) 3 % 3-11 EOS (test code = EOS) 28 % <=10 H BASO (test code = BASO) 1 % 0-2 RBC MORPH (test code = ABNORMAL NORMAL A RBCMORN) PLT EST (test code = ADEQUATE ADEQUATE PLTEST) PLT MORPH (test code = NORMAL (1.5-3 um) NORMAL PLTMOR) STOMATO (test code = 1+ NONE A STOM) GLUCOMETER GLUCOSE- LAB USE [id number] 07:18:00 Test Item Value Reference Range Interpretation Comments GLUCOMETER (test code = 94 mg/dL 70-100 JABARI ADOLPH METERMeter ID: GMG) [id number] tor: 1331 AMOYA SCOT T GLUCOMETER GLUCOSE- LAB USE [id number] 19:34:00 Test Item Value Reference Range Interpretation Comments GLUCOMETER (test code 120 mg/dL 70-100 H CLEANE D METERMeter ID: = GMG) [id number] tor: 1818 [place] B ADMUS GLUCOMETER GLUCOSE- LAB USE [id number] 16:30:00 Test Item Value Reference Range Interpretation Comments GLUCOMETER (test code 157 mg/dL 70-100 H CLEANE D METERMeter ID: = GMG) [id number] tor: 8413 TRISTAN ROSS LL GLUCOMETER GLUCOSE- LAB USE [id number] 10:50:00 Test Item Value Reference Range Interpretation Comments GLUCOMETER (test code = 169 mg/dL 70-100 H Mete r ID: GMG) [id number] tor: 3007 LILLI BA NKS GLUCOMETER GLUCOSE- LAB USE [id number] 07:29:00 Test Item Value Reference Range Interpretation Comments GLUCOMETER (test code 154 mg/dL 70-100 H CLEANE D METERMeter ID: = GMG) [id number] tor: 8280 MARY FIELDS LTON COMPREHENSIVE METABOLIC [id number] 07:08:00 Test Item Value Reference Range Interpretation Comments GLUCOSE (test code = 107 mg/dL 75-100 H 06D) SODIUM (test code = 143 mmol/L 136-145 01A) POTASSIUM (test code = 4.8 mmol/L 3.6-5.1 01B) CHLORIDE (test code = 111 mmol/L 98-107 H 04A) CO2 (test code = 02A) 27 mmol/L 22-32 ANION GAP (test code = 9.8 mmol/L ANG) BUN (test code = 05D) 39 mg/dL 7-18 H CREATININE (test code 1.8 mg/dL 0.7-1.3 H = 03E) GFR (test code = GFR) 41 mL/min/1.73m\\S\\2 >=90 L GFR 48 mL/min/1.73m\\S\\2 >=90 L (test code = GFRAA) EGFR (test code = eGFR BY CKD-EPI EGFR) CALCULATION IS NOT RECOMMENDED FOR PATIENTS UNDER 18 YEARS OF AGE. BUN/CREA (test code = 22 12-20 H BCR) CALCIUM (test code = 9.1 mg/dL 8.3-9.5 09D) BILI TOTAL (test code 0.2 mg/dL 0.2-1.0 = 11A) PROTEIN (test code = 7.1 g/dL 6.4-8.2 07D) ALBUMIN (test code = 3.0 g/dL 3.5-4.8 L 08D) GLOBULIN (test code = 4.1 g/dL 1.5-3.8 H GLB) ALB/GLOB (test code = 0.7 1.0-2.6 L AGRR) ALK PHOS (test code = 91 IU/L 42-121 35A) AST (test code = 30A) 13 IU/L <=42 ALT (test code = 31A) 15 IU/L <=78 CBC (INCLUDES AUTOMATED DIFFERENTIAL)2020-10-13 06:58:00 Test Item Value Reference Range Interpretation Comments WBC (test code = WBC) 13.3 10\\S\\3/uL 4.5-11.0 H RBC (test code = RBC) 3.10 10\\S\\6/uL 4.20-5.60 L HGB (test code = HBG) 9.2 g/dL 14.0-18.0 L HCT (test code = HCT) 30.0 % 35.0-46.0 L MCV (test code = MCV) 96.8 fL 80.0-94.0 H MCH (test code = MCH) 29.7 pg 27.0-31.0 MCHC (test code = MCHC) 30.7 g/dL 32.0-36.0 L RDW (test code = RDW) 12.8 % 11.5-14.5 PLT (test code = PLT) 289 10\\S\\3/uL 130-400 MPV (test code = MPV) 10.8 fL 9.4-12.4 NEUTROP # (test code = NE#) 7.9 10\\S\\3/uL 2.0-8.0 LYMPH # (test code = LY#) 2.6 10\\S\\3/uL 1.2-4.0 MONOCYTE # (test code = MO#) 0.8 10\\S\\3/uL 0.0-1.1 EOSINOPH # (test code = EO#) 1.9 10\\S\\3/uL 0.0-0.7 H BASOPHIL # (test code = BA#) 0.1 10\\S\\3/uL 0.0-0.3 IG # (test code = IG#) 0.16 10\\S\\3/uL 0.00-0.06 H NRBC # (test code = NRBC#) 0.00 10\\S\\3/uL 0.00-0.01 NEUTROPH % (test code = NE%) 59.2 % 35.0-73.0 LYMPH % (test code = LY%) 19.2 % 20.0-55.0 L MONO % (test code = MO%) 5.8 % 2.5-10.0 EOSINOPH % (test code = EO%) 14.0 % 0.0-5.0 H BASOPHIL % (test code = BA%) 0.6 % 0.0-2.0 IG % (test code = IG%) 1.2 % 0.0-0.8 H NRBC% (test code = NRBC%) 0.0 % 0.0-0.2 MANDIFF (test code = MDIFF) NO NO RBC MORPH (test code = RBCMOR) NORMAL GLUCOMETER GLUCOSE- LAB USE [id number] 19:11:00 Test Item Value Reference Range Interpretation Comments GLUCOMETER (test code 242 mg/dL 70-100 H CLEANE D METERMeter ID: = GMG) [id number] tor: 9867 TAMMY G ENTILE GLUCOMETER GLUCOSE- LAB USE [id number] 16:04:00 Test Item Value Reference Range Interpretation Comments GLUCOMETER (test code = 249 mg/dL 70-100 H Mete r ID: GMG) [id number] tor: 84[address] PARSON[place] LL GLUCOMETER GLUCOSE- LAB USE [id number] 07:20:00 Test Item Value Reference Range Interpretation Comments GLUCOMETER (test 111 mg/dL 70-100 H DAILY MAINT ENANCEMeter code = GMG) ID: [id number] perator: [id number] LILLI BA NKS GLUCOMETER GLUCOSE- LAB USE [id number] 19:25:00 Test Item Value Reference Range Interpretation Comments GLUCOMETER (test code 117 mg/dL 70-100 H CLEANE D METERMeter ID: = GMG) [id number] tor: 1818 GURWINDER B ADMUS GLUCOMETER GLUCOSE- LAB USE [id number] 15:47:00 Test Item Value Reference Range Interpretation Comments GLUCOMETER (test code = 86 mg/dL 70-100 JABARI ADOLPH METERMeter ID: GMG) [id number] tor: 6224 MACY PETERSEN TS GLUCOMETER GLUCOSE- LAB USE [id number] 11:44:00 Test Item Value Reference Range Interpretation Comments GLUCOMETER (test code = 247 mg/dL 70-100 H Mete r ID: GMG) [id number] tor: [address] MARIANO GLUCOMETER GLUCOSE- LAB USE [id number] 07:08:00 Test Item Value Reference Range Interpretation Comments GLUCOMETER (test code = 96 mg/dL 70-100 JABARI ADOLPH METERMeter ID: GMG) [id number] tor: 9867 TAMMY G ENTILE GLUCOMETER GLUCOSE- LAB USE [id number] 19:20:00 Test Item Value Reference Range Interpretation Comments GLUCOMETER (test code 139 mg/dL 70-100 H CLEANE D METERMeter ID: = GMG) [id number] tor: 7339 RUDOLPH JOSSELINE SON GLUCOMETER GLUCOSE- LAB USE [id number] 16:37:00 Test Item Value Reference Range Interpretation Comments GLUCOMETER (test code 120 mg/dL 70-100 H CLEANE D METERMeter ID: = GMG) [id number] tor: 9379 BETTY SATT IEWHITE GLUCOMETER GLUCOSE- LAB USE [id number] 11:54:00 Test Item Value Reference Range Interpretation Comments GLUCOMETER (test code 162 mg/dL 70-100 H CLEANE D METERMeter ID: = GMG) [id number] tor: 9379 BETTY SATT IEWHITE GLUCOMETER GLUCOSE- LAB USE [id number] 07:43:00 Test Item Value Reference Range Interpretation Comments GLUCOMETER (test code 105 mg/dL 70-100 H CLEANE D METERMeter ID: = GMG) [id number] tor: 3912 [facility] BLOOD [id number] 22:31:00 Test Item Value Reference Range Interpretation Comments Culture Observations (test NO GROWTH AFTER 5 code = COB1) DAYS BLOOD [id number] 22:31:00 Test Item Value Reference Range Interpretation Comments Culture Observations (test NO GROWTH AFTER 5 code = COB1) DAYS GLUCOMETER GLUCOSE- LAB USE [id number] 19:30:00 Test Item Value Reference Range Interpretation Comments GLUCOMETER (test code 112 mg/dL 70-100 H CLEANE D METERMeter ID: = GMG) [id number] tor: 7339 RUDOLPH JOSSELINE SON GLUCOMETER GLUCOSE- LAB USE [id number] 16:41:00 Test Item Value Reference Range Interpretation Comments GLUCOMETER (test code = 131 mg/dL 70-100 H Mete r ID: GMG) [id number] tor: 6680 [place] GLUCOMETER GLUCOSE- LAB USE [id number] 11:49:00 Test Item Value Reference Range Interpretation Comments GLUCOMETER (test code 109 mg/dL 70-100 H CLEANE D METERMeter ID: = GMG) [id number] tor: 6224 MACY GRIGSBY URINE [id number] 08:46:00 Test Item Value Reference Range Interpretation Comments Isolate 1 (test code Providencia A MULT I-DRUG = ISO1) stuartii RESISTANT ORGANISM piperacillin/tazobact S am (test code = tzp) cefazolin (test code R = cz) ceftazidime (test S code = annie) ceftriaxone1 (test S code = ctr) cefepime (test code = S fep) aztreonam (test code S = azm) meropenem (test code S = mem) gentamicin (test code R = gm) tobramycin (test code R = tob) levofloxacin (test I code = lev) nitrofurantoin (test R code = ftn) trimethoprim/sulfamet S hoxazole (test code = sxt) Isolate 2 (test code Proteus mirabilis A = ISO2) ampicillin (test code R = am) piperacillin/tazobact S am (test code = tzp) cefazolin (test code R = cz) ceftazidime (test R code = annie) ceftriaxone1 (test R code = ctr) cefepime (test code = R fep) aztreonam (test code R = azm) ertapenem (test code S = etp) meropenem (test code S = mem) gentamicin (test code R = gm) tobramycin (test code I = tob) levofloxacin (test R code = lev) nitrofurantoin (test R code = ftn) trimethoprim/sulfamet R hoxazole (test code = sxt) GLUCOMETER GLUCOSE- LAB USE [id number] 07:11:00 Test Item Value Reference Range Interpretation Comments GLUCOMETER (test code = 88 mg/dL 70-100 JABARI ADOLPH METERMeter ID: GMG) [id number] tor: 1331 TIKA [facility] T GLUCOMETER GLUCOSE- LAB USE [id number] 19:25:00 Test Item Value Reference Range Interpretation Comments GLUCOMETER (test code 163 mg/dL 70-100 H CLEANE D METERREPEAT = GMG) TESTMeter ID: [id number] tor: 3831 NICKO CORTES CKSON GLUCOMETER GLUCOSE- LAB USE [id number] 16:31:00 Test Item Value Reference Range Interpretation Comments GLUCOMETER (test code 136 mg/dL 70-100 H CLEANE D METERMeter ID: = GMG) [id number] tor: 82[address] MARY FIELDS LTON GLUCOMETER GLUCOSE- LAB USE [id number] 11:57:00 Test Item Value Reference Range Interpretation Comments GLUCOMETER (test code 194 mg/dL 70-100 H CLEANE D METERMeter ID: = GMG) [id number] tor: 9379 BETTY STERLING IEWHITE GLUCOMETER GLUCOSE- LAB USE [id number] 07:34:00 Test Item Value Reference Range Interpretation Comments GLUCOMETER (test code 113 mg/dL 70-100 H CLEANE D METERMeter ID: = GMG) [id number] tor: 8280 MARY FIELDS LTON GLUCOMETER GLUCOSE- LAB USE [id number] 19:30:00 Test Item Value Reference Range Interpretation Comments GLUCOMETER (test code 133 mg/dL 70-100 H CLEANE D METERMeter ID: = GMG) [id number] tor: 3831 NICKO CORTES CKSON GLUCOMETER GLUCOSE- LAB USE [id number] 16:33:00 Test Item Value Reference Range Interpretation Comments GLUCOMETER (test code = 158 mg/dL 70-100 H Mete r ID: GMG) [id number] tor: 6680 UCHE [place] GLUCOMETER GLUCOSE- LAB USE [id number] 11:09:00 Test Item Value Reference Range Interpretation Comments GLUCOMETER (test code 201 mg/dL 70-100 H CLEANE D METERMeter ID: = GMG) [id number] tor: 4611 ANGELA GRIFFIN GLUCOMETER GLUCOSE- LAB USE [id number] 07:14:00 Test Item Value Reference Range Interpretation Comments GLUCOMETER (test 129 mg/dL 70-100 H CLEANED MET ERDAILY code = GMG) MAINTENANCEMete r ID: [id number] tor: 4612 STEPAN STONELAR GLUCOMETER GLUCOSE- LAB USE [id number] 19:14:00 Test Item Value Reference Range Interpretation Comments GLUCOMETER (test code 158 mg/dL 70-100 H CLEANE D METERMeter ID: = GMG) [id number] tor: 1818 RAKESHRUDDYJAYA Faulkner ADMUS GLUCOMETER GLUCOSE- LAB USE [id number] 16:37:00 Test Item Value Reference Range Interpretation Comments GLUCOMETER (test code 186 mg/dL 70-100 H CLEANE D METERMeter ID: = GMG) [id number] tor: 6224 MACY PETERSEN TS GLUCOMETER GLUCOSE- LAB USE [id number] 11:12:00 Test Item Value Reference Range Interpretation Comments GLUCOMETER (test code 218 mg/dL 70-100 H CLEANE D METERMeter ID: = GMG) [id number] tor: 4611 ANGELA WATERS AN GLUCOMETER GLUCOSE- LAB USE [id number] 07:17:00 Test Item Value Reference Range Interpretation Comments GLUCOMETER (test code 139 mg/dL 70-100 H CLEANE D METERMeter ID: = GMG) [id number] tor: 1331 MICHAELAPOLLO SCOT T GLUCOMETER GLUCOSE- LAB USE [id number] 19:33:00 Test Item Value Reference Range Interpretation Comments GLUCOMETER (test code 183 mg/dL 70-100 H CLEANE D METERMeter ID: = GMG) [id number] tor: 7339 RUDOLPH MANJARREZ SON GLUCOMETER GLUCOSE- LAB USE [id number] 15:46:00 Test Item Value Reference Range Interpretation Comments GLUCOMETER (test code 116 mg/dL 70-100 H CLEANE D METERMeter ID: = GMG) [id number] tor: 8280 MARY FIELDS LTON GLUCOMETER GLUCOSE- LAB USE [id number] 11:41:00 Test Item Value Reference Range Interpretation Comments GLUCOMETER (test code 198 mg/dL 70-100 H CLEANE D METERMeter ID: = GMG) [id number] tor: 4611 ANGELA WATERS AN GLUCOMETER GLUCOSE- LAB USE [id number] 07:38:00 Test Item Value Reference Range Interpretation Comments GLUCOMETER (test code 131 mg/dL 70-100 H CLEANE D METERMeter ID: = GMG) [id number] tor: [address] [facility] WITH [id number] 06:21:00 Test Item Value Reference Range Interpretation Comments COLOR (test code = COLU) YELLOW YELLOW CLARITY (test code = CLA) CLOUDY CLEAR A GLUCOSE UR (test code = UA GLUCOSE) NEGATIVE NEGATIVE BILI UR (test code = BILE) NEGATIVE NEGATIVE KETONES UR (test code = PETE) NEGATIVE NEGATIVE SP GRAVITY (test code = SPGR) 1.015 1.005-1.030 PH UR (test code = PH) 5.5 4.5-8.0 PROTEIN UR (test code = PU) 2+ NEGATIVE A UROBIL UR (test code = UROQ) 0.2 EU/dL 0.2-1.0 NITRITE UR (test code = NITRITE) POSITIVE NEGATIVE A BLOOD UR (test code = UA BLOOD) 1+ NEGATIVE A LEUK ES UR (test code = LEUK) 3+ NEGATIVE A WBC UR (test code = UWBC) 24 /HPF 0-3 H RBC UR (test code = URBC) 0 /HPF 0-2 EPITH UR (test code = UEPC) NONE /LPF NONE BACTERIA UR (test code = UBACT) MANY /HPF NONE A CAST UR (test code = CAST) /LPF NONE CRYSTAL UR (test code = CRYU) / LPF NONE MUCUS UR (test code = MUC) / HPF NONE AMORPH UR (test code = JASEN) / HPF NONE TRICH UR (test code = UTRICH) /HPF NONE YEAST UR (test code = UY) /HPF NONE SPERM UR (test code = USPERM) /HPF NONE GLUCOMETER GLUCOSE- LAB USE [id number] 19:34:00 Test Item Value Reference Range Interpretation Comments GLUCOMETER (test code 204 mg/dL 70-100 H CLEANE D METERMeter ID: = GMG) [id number] tor: 6[address] CL[place] K EHINDE GLUCOMETER GLUCOSE- LAB USE [id number] 16:39:00 Test Item Value Reference Range Interpretation Comments GLUCOMETER (test code 162 mg/dL 70-100 H CLEANE D METERMeter ID: = GMG) [id number] tor: 84[address] [facility] GLUCOMETER GLUCOSE- LAB USE [id number] 11:42:00 Test Item Value Reference Range Interpretation Comments GLUCOMETER (test code 170 mg/dL 70-100 H CLEANE D METERMeter ID: = GMG) [id number] tor: 82[address] MARY FIELDS LTON GLUCOMETER GLUCOSE- LAB USE [id number] 07:13:00 Test Item Value Reference Range Interpretation Comments GLUCOMETER (test 148 mg/dL 70-100 H CLEANED MET ERDAILY code = GMG) MAINTENANCEMete r ID: [id number] tor: 4612 STEPAN CAREY GLUCOMETER GLUCOSE- LAB USE [id number] 19:22:00 Test Item Value Reference Range Interpretation Comments GLUCOMETER (test code 209 mg/dL 70-100 H CLEANE D METERMeter ID: = GMG) [id number] tor: 6[address] CL[place] K EHINDE GLUCOMETER GLUCOSE- LAB USE [id number] 16:15:00 Test Item Value Reference Range Interpretation Comments GLUCOMETER (test code 175 mg/dL 70-100 H CLEANE D METERMeter ID: = GMG) [id number] tor: [address] MARY FIELDS LTON GLUCOMETER GLUCOSE- LAB USE [id number] 12:14:00 Test Item Value Reference Range Interpretation Comments GLUCOMETER (test code = 308 mg/dL 70-100 H Mete r ID: GMG) [id number] tor: 82[address] MARY FIELDS LTON GLUCOMETER GLUCOSE- LAB USE [id number] 07:56:00 Test Item Value Reference Range Interpretation Comments GLUCOMETER (test code 179 mg/dL 70-100 H CLEANE D METERMeter ID: = GMG) [id number] tor: 3912 [facility] VALPROIC ACID (DEPAKENE)2020-10-02 22:33:00 Test Item Value Reference Range Interpretation Comments VALP ACID (test code = 95A) <3.0 ug/mL 50.0-100.0 LL B12 [id number] 22:30:00 Test Item Value Reference Range Interpretation Comments VIT B12 (test code = A60) 525.0 pg/mL 180.0-914.0 [id number] 22:30:00 Test Item Value Reference Range Interpretation Comments FOLATE (test code = A75) 15.8 ng/mL 3.1-17.5 THYROID PANEL/SCREEN (TSH)2020-10-02 21:57:00 Test Item Value Reference Range Interpretation Comments TSH (test code = A57) 1.580 uIU/mL 0.358-3.740 [id number] 21:56:00 Test Item Value Reference Range Interpretation Comments PREALBUMIN (test code = 08E) 32 mg/dL 18-38 [id number] 21:53:00 Test Item Value Reference Range Interpretation Comments Hb A1C % (test code 5.7 % 3.8-6.4 = HBA) A1C % (test code = HbA1c (% ) A1C) Reference Range Normal <5.7 Prediabetes 5.7-6.4 Diabetic >=6.5 LIPID [id number] 21:51:00 Test Item Value Reference Range Interpretation Comments CHOLESTROL (test code = 44A) 138 mg/dL 140-200 L TRIGLYCERI (test code = 42B) 199 mg/dL <=149 H HDL (test code = 83D) 53.0 mg/dL 40.0-60.0 LDL (test code = 34B) 70 mg/dL <=99 CHL/HDL (test code = CHR) 2.6 0.0-3.4 [id number] 21:44:00 Test Item Value Reference Range Interpretation Comments MAGNESIUM (test code = 48A) 1.9 mg/dL 1.8-2.4 GLUCOMETER GLUCOSE- LAB USE [id number] 20:09:00 Test Item Value Reference Range Interpretation Comments GLUCOMETER (test code 181 mg/dL 70-100 H CLEANE D METERMeter ID: = GMG) [id number] tor: 38[address] NICKO SHAW SARS-CoV (RAPID ANTIGEN)2020-10-02 17:33:00 Test Item Value Reference Range Interpretation Comments SARS-CoV (ANTIGEN) NEGATIVE NEGATIVE (test code = COVAG) COVID AG (test This test has been code = COVAGC) marketed under the FDA Emergency Use Authorization (EUA) to meet challenges of the COVID-19 pandemic. The validation standards normally enforced by the FDA and the [employer] [place] [employer] (CAP) are more stringent than those required for this test. Therefore, the result should be interpreted with caution and close attention to other clinical and epidemiological data URINALYSIS WITH [id number] 16:59:00 Test Item Value Reference Range Interpretation Comments COLOR (test code = COLU) YELLOW YELLOW CLARITY (test code = CLA) CLEAR CLEAR GLUCOSE UR (test code = UA GLUCOSE) NEGATIVE NEGATIVE BILI UR (test code = BILE) NEGATIVE NEGATIVE KETONES UR (test code = PETE) NEGATIVE NEGATIVE SP GRAVITY (test code = SPGR) 1.011 1.005-1.030 PH UR (test code = PH) 5.5 4.5-8.0 PROTEIN UR (test code = PU) 1+ NEGATIVE A UROBIL UR (test code = UROQ) 0.2 EU/dL 0.2-1.0 NITRITE UR (test code = NITRITE) NEGATIVE NEGATIVE BLOOD UR (test code = UA BLOOD) NEGATIVE NEGATIVE LEUK ES UR (test code = LEUK) NEGATIVE NEGATIVE WBC UR (test code = UWBC) 1 /HPF 0-3 RBC UR (test code = URBC) 0 /HPF 0-2 EPITH UR (test code = UEPC) FEW /LPF NONE A BACTERIA UR (test code = UBACT) NONE /HPF NONE CAST UR (test code = CAST) /LPF NONE CRYSTAL UR (test code = CRYU) / LPF NONE MUCUS UR (test code = MUC) / HPF NONE AMORPH UR (test code = JASEN) / HPF NONE TRICH UR (test code = UTRICH) /HPF NONE YEAST UR (test code = UY) /HPF NONE SPERM UR (test code = USPERM) /HPF NONE DRUGS OF [id number] 16:57:00 Test Item Value Reference Range Interpretation Comments DRUG SCRN (test code = URINE DRUG HDOA) SCREEN This is an unconfirmed screening result and should not be used for non-medical purposes CANNABINOD (test code Negative NEGATIVE = 88C) AMPHETAMINE (test code Negative NEGATIVE = 84A) BENZODIAZP (test code Negative NEGATIVE = 86A) BARBITURAT (test code Negative NEGATIVE = 85A) OPIATES (test code = Negative NEGATIVE 92B) COCAINE (test code = Negative NEGATIVE 87A) PHENCYCLID (test code Negative NEGATIVE = 66A) METHADONE (test code = Negative NEGATIVE 64A) DOAH (test code = DOAH.) URINE DRUG SCREEN Cut-off values are as follows: Cannabinoids 50 ng/mL Cocaine 300 ng/mL Amphetamines 1000 ng/mL Phencyclidine 25 ng/mL Benzodiazepines 200 ng.mL Methadone 300 ng/mL Barbiturates 200 ng/mL Opiates 2000 ng/mL [id number] 15:42:00 Test Item Value Reference Range Interpretation Comments CPK (test code = 32A) 70 IU/L 39-308 [id number] 15:42:00 Test Item Value Reference Range Interpretation Comments FERRITIN (test code = A19) 204.6 ng/mL 26.0-388.0 LDH-LACTIC [id number] 15:42:00 Test Item Value Reference Range Interpretation Comments LDH (test code = 33A) 236 IU/L 100-190 H [id number] 15:38:00 Test Item Value Reference Range Interpretation Comments D-DIMER (test code = 460 ng/mL D-DU 0-234 H DDI) D-DIMER COMMENT (test *Level to rule out code = DDCOM) DVT or PE: <235 ng/mL D-DU* C-REACTIVE PROTEIN [id number] 15:38:00 Test Item Value Reference Range Interpretation Comments CRP QUANT (test code 8.4 mg/L 0.0-2.9 H = CRPQ) Method Change (test Please note the code = METHOD) change in Method and the reference range CARDIAC [id number] 13:56:00 Test Item Value Reference Range Interpretation Comments TROPONIN I (test code = A84) <0.015 ng/mL 0.000-0.045 LIVER [id number] 13:43:00 Test Item Value Reference Range Interpretation Comments BILI TOTAL (test code = 11A) 0.2 mg/dL 0.2-1.0 BILI DIRCT (test code = 12A) 0.1 mg/dL 0.0-0.2 BILI INDIR (test code = BILII) 0.1 mg/dL <=0.8 PROTEIN (test code = 07D) 7.9 g/dL 6.4-8.2 ALBUMIN (test code = 08D) 3.6 g/dL 3.5-4.8 GLOBULIN (test code = GLB) 4.3 g/dL 1.5-3.8 H ALB/GLOB (test code = AGRR) 0.8 1.0-2.6 L ALK PHOS (test code = 35A) 173 IU/L 42-121 H AST (test code = 30A) 11 IU/L <=42 ALT (test code = 31A) 13 IU/L <=78 COMPREHENSIVE METABOLIC [id number] 13:42:00 Test Item Value Reference Range Interpretation Comments GLUCOSE (test code = 266 mg/dL 75-100 H 06D) SODIUM (test code = 139 mmol/L 136-145 01A) POTASSIUM (test code = 4.2 mmol/L 3.6-5.1 01B) CHLORIDE (test code = 107 mmol/L 98-107 04A) CO2 (test code = 02A) 24 mmol/L 22-32 ANION GAP (test code = 12.2 mmol/L ANG) BUN (test code = 05D) 27 mg/dL 7-18 H CREATININE (test code 1.9 mg/dL 0.7-1.3 H = 03E) GFR (test code = GFR) 38 mL/min/1.73m\\S\\2 >=90 L GFR 44 mL/min/1.73m\\S\\2 >=90 L (test code = GFRAA) EGFR (test code = eGFR BY CKD-EPI EGFR) CALCULATION IS NOT RECOMMENDED FOR PATIENTS UNDER 18 YEARS OF AGE. BUN/CREA (test code = 14 12-20 BCR) CALCIUM (test code = 8.8 mg/dL 8.3-9.5 09D) BILI TOTAL (test code 0.2 mg/dL 0.2-1.0 = 11A) PROTEIN (test code = 7.9 g/dL 6.4-8.2 07D) ALBUMIN (test code = 3.6 g/dL 3.5-4.8 08D) GLOBULIN (test code = 4.3 g/dL 1.5-3.8 H GLB) ALB/GLOB (test code = 0.8 1.0-2.6 L AGRR) ALK PHOS (test code = 173 IU/L 42-121 H 35A) AST (test code = 30A) 11 IU/L <=42 ALT (test code = 31A) 13 IU/L <=78 AMYLASE AND [id number] 13:42:00 Test Item Value Reference Range Interpretation Comments AMYLASE (test code = 10A) 65 U/L 28-100 LIPASE (test code = 60A) 96 IU/L 73-393 [id number] 13:38:00 Test Item Value Reference Range Interpretation Comments ACETAMINPH (test code = 94M) <2.0 ug/mL 10.0-30.0 L [id number] 13:34:00 Test Item Value Reference Range Interpretation Comments SALICYLATE (test code = 94B) <1.7 mg/dL 2.8-20.0 L ALCOHOL BLOOD (ETOH)2020-10-02 13:34:00 Test Item Value Reference Range Interpretation Comments ETOH (test code = HALC) ETHANOL The result is to be used only for medical purposes ALCOHOL (test code = <10 mg/dL <=10 56A) AMMONIA [id number] 13:34:00 Test Item Value Reference Range Interpretation Comments AMMONIA (test code = 54A) 23 umol/L 11-32 PRO TIME AND [id number] 13:29:00 Test Item Value Reference Range Interpretation Comments PT (test code = 10.2 s 9.8-13.6 TT) INR (test code = 0.9 INR) INRH (test code = SUGGESTED THERAPEUTIC INRH) RANGE FOR INR: 2.5 - 3.5 For Patients with Prosthetic Valves or Patients with recurrent Thromboembolic Events 2.0 - 3.0 For Most Other Applications PTT (test code = 32.8 s 20.2-38.0 PTT) PTTH (test code = To monitor the PTTH) effectiveness of heparin, we offer the Anti-Xa (Heparin Assay). It can be used for either unfractionated or LMW Heparin. Order Code is ANTI-XA CBC (INCLUDES AUTOMATED DIFFERENTIAL)2020-10-02 13:24:00 Test Item Value Reference Range Interpretation Comments WBC (test code = WBC) 10.1 10\\S\\3/uL 4.5-11.0 RBC (test code = RBC) 4.08 10\\S\\6/uL 4.20-5.60 L HGB (test code = HBG) 12.6 g/dL 14.0-18.0 L HCT (test code = HCT) 37.4 % 35.0-46.0 MCV (test code = MCV) 91.7 fL 80.0-94.0 MCH (test code = MCH) 30.9 pg 27.0-31.0 MCHC (test code = MCHC) 33.7 g/dL 32.0-36.0 RDW (test code = RDW) 12.9 % 11.5-14.5 PLT (test code = PLT) 271 10\\S\\3/uL 130-400 MPV (test code = MPV) 10.5 fL 9.4-12.4 NEUTROP # (test code = NE#) 4.5 10\\S\\3/uL 2.0-8.0 LYMPH # (test code = LY#) 2.9 10\\S\\3/uL 1.2-4.0 MONOCYTE # (test code = MO#) 0.6 10\\S\\3/uL 0.0-1.1 EOSINOPH # (test code = EO#) 2.0 10\\S\\3/uL 0.0-0.7 H BASOPHIL # (test code = BA#) 0.1 10\\S\\3/uL 0.0-0.3 IG # (test code = IG#) 0.09 10\\S\\3/uL 0.00-0.06 H NRBC # (test code = NRBC#) 0.00 10\\S\\3/uL 0.00-0.01 NEUTROPH % (test code = NE%) 44.7 % 35.0-73.0 LYMPH % (test code = LY%) 28.6 % 20.0-55.0 MONO % (test code = MO%) 5.6 % 2.5-10.0 EOSINOPH % (test code = EO%) 19.6 % 0.0-5.0 H BASOPHIL % (test code = BA%) 0.6 % 0.0-2.0 IG % (test code = IG%) 0.9 % 0.0-0.8 H NRBC% (test code = NRBC%) 0.0 % 0.0-0.2 MANDIFF (test code = MDIFF) NO NO RBC MORPH (test code = RBCMOR) NORMAL GLUCOMETER GLUCOSE- LAB USE [id number] 16:11:00 Test Item Value Reference Range Interpretation Comments GLUCOMETER (test code 112 mg/dL 70-100 H CLEANE D METERMeter ID: = GMG) [id number] tor: 6224 MACY PETERSEN TS GLUCOMETER GLUCOSE- LAB USE [id number] 11:19:00 Test Item Value Reference Range Interpretation Comments GLUCOMETER (test code = 91 mg/dL 70-100 JABARI ADOLPH METERMeter ID: GMG) [id number] tor: 4611 ANGELA WATERS AN GLUCOMETER GLUCOSE- LAB USE [id number] 07:11:00 Test Item Value Reference Range Interpretation Comments GLUCOMETER (test code = 84 mg/dL 70-100 JABARI ADOLPH METERMeter ID: GMG) [id number] tor: 6224 MACY TRINITY TS GLUCOMETER GLUCOSE- LAB USE [id number] 19:11:00 Test Item Value Reference Range Interpretation Comments GLUCOMETER (test code 117 mg/dL 70-100 H CLEANE D METERMeter ID: = GMG) [id number] tor: 425[address] SHAINA CHRISTINA GLUCOMETER GLUCOSE- LAB USE [id number] 16:14:00 Test Item Value Reference Range Interpretation Comments GLUCOMETER (test code 116 mg/dL 70-100 H CLEANE D METERMeter ID: = GMG) [id number] tor: 4611 ANGELA WATERS AN GLUCOMETER GLUCOSE- LAB USE [id number] 10:56:00 Test Item Value Reference Range Interpretation Comments GLUCOMETER (test code 109 mg/dL 70-100 H CLEANE D METERMeter ID: = GMG) [id number] tor: 4611 ANGELA WATERS AN GLUCOMETER GLUCOSE- LAB USE [id number] 07:35:00 Test Item Value Reference Range Interpretation Comments GLUCOMETER (test code = 78 mg/dL 70-100 JABARI ADOLPH METERMeter ID: GMG) [id number] tor: 8413 TRISTAN ROSS LL SARS-CoV (RAPID ANTIGEN)2020-08-26 06:59:00 Test Item Value Reference Range Interpretation Comments SARS-CoV (ANTIGEN) NEGATIVE NEGATIVE (test code = COVAG) COVID AG (test This test has been code = COVAGC) marketed under the FDA Emergency Use Authorization (EUA) to meet challenges of the COVID-19 pandemic. The validation standards normally enforced by the FDA and the [employer] [place] [employer] ([employer]) are more stringent than those required for this test. Therefore, the result should be interpreted with caution and close attention to other clinical and epidemiological data GLUCOMETER GLUCOSE- LAB USE [id number] 19:51:00 Test Item Value Reference Range Interpretation Comments GLUCOMETER (test code 140 mg/dL 70-100 H CLEANE D METERREPEAT = GMG) TESTMeter ID: [id number] tor: 0040 NAHUN CHAPPELL GLUCOMETER GLUCOSE- LAB USE [id number] 16:41:00 Test Item Value Reference Range Interpretation Comments GLUCOMETER (test code 124 mg/dL 70-100 H CLEANE D METERMeter ID: = GMG) [id number] tor: [id number] GLUCOMETER GLUCOSE- LAB USE [id number] 11:44:00 Test Item Value Reference Range Interpretation Comments GLUCOMETER (test code 105 mg/dL 70-100 H CLEANE D METERMeter ID: = GMG) [id number] tor: 8413 TRISTAN ROSS LL GLUCOMETER GLUCOSE- LAB USE [id number] 07:02:00 Test Item Value Reference Range Interpretation Comments GLUCOMETER (test code = 89 mg/dL 70-100 JABARI ADOLPH METERMeter ID: GMG) [id number] tor: 6224 MACY PETERSEN TS GLUCOMETER GLUCOSE- LAB USE [id number] 16:16:00 Test Item Value Reference Range Interpretation Comments GLUCOMETER (test code = 60 mg/dL 70-100 L Mete r ID: GMG) [id number] tor: 8413 TRISTAN ROSS GLUCOMETER GLUCOSE- LAB USE [id number] 11:51:00 Test Item Value Reference Range Interpretation Comments GLUCOMETER (test code 252 mg/dL 70-100 H CLEANE D METERMeter ID: = GMG) [id number] tor: 3912 [facility] GLUCOMETER GLUCOSE- LAB USE [id number] 07:37:00 Test Item Value Reference Range Interpretation Comments GLUCOMETER (test code = 95 mg/dL 70-100 JABARI ADOLPH METERMeter ID: GMG) [id number] tor: 1328 REFUGIO MURCatrachito HY VALPROIC ACID (DEPAKENE)2020-08-24 07:03:00 Test Item Value Reference Range Interpretation Comments VALP ACID (test code = 95A) 52.9 ug/mL 50.0-100.0 GLUCOMETER GLUCOSE- LAB USE [id number] 20:04:00 Test Item Value Reference Range Interpretation Comments GLUCOMETER (test code 117 mg/dL 70-100 H CLEANE D METERMeter ID: = GMG) [id number] tor: 8379 GLUCOMETER GLUCOSE- LAB USE [id number] 20:04:00 Test Item Value Reference Range Interpretation Comments GLUCOMETER (test code 148 mg/dL 70-100 H CLEANE D METERMeter ID: = GMG) [id number] tor: 379 CBC (INCLUDES AUTOMATED DIFFERENTIAL)2020-08-23 17:03:00 Test Item Value Reference Range Interpretation Comments WBC (test code = WBC) 6.8 10\\S\\3/uL 4.5-11.0 RBC (test code = RBC) 4.10 10\\S\\6/uL 4.20-5.60 L HGB (test code = HBG) 13.0 g/dL 14.0-18.0 L HCT (test code = HCT) 39.8 % 35.0-46.0 MCV (test code = MCV) 97.1 fL 80.0-94.0 H MCH (test code = MCH) 31.7 pg 27.0-31.0 H MCHC (test code = MCHC) 32.7 g/dL 32.0-36.0 RDW (test code = RDW) 14.1 % 11.5-14.5 PLT (test code = PLT) 247 10\\S\\3/uL 130-400 MPV (test code = MPV) 8.7 fL 9.4-12.4 L NEUTROP # (test code = NE#) 4.3 10\\S\\3/uL 2.0-8.0 LYMPH # (test code = LY#) 1.8 10\\S\\3/uL 1.2-4.0 MONOCYTE # (test code = MO#) 0.4 10\\S\\3/uL 0.0-1.1 EOSINOPH # (test code = EO#) 0.4 10\\S\\3/uL 0.0-0.7 BASOPHIL # (test code = BA#) 0.1 10\\S\\3/uL 0.0-0.3 IG # (test code = IG#) 0.03 10\\S\\3/uL 0.00-0.06 NRBC # (test code = NRBC#) 0.00 10\\S\\3/uL 0.00-0.01 NEUTROPH % (test code = NE%) 62.7 % 35.0-73.0 LYMPH % (test code = LY%) 25.6 % 20.0-55.0 MONO % (test code = MO%) 5.3 % 2.5-10.0 EOSINOPH % (test code = EO%) 5.3 % 0.0-5.0 H BASOPHIL % (test code = BA%) 0.7 % 0.0-2.0 IG % (test code = IG%) 0.4 % 0.0-0.8 NRBC% (test code = NRBC%) 0.0 % 0.0-0.2 MANDIFF (test code = MDIFF) NO NO BASIC METABOLIC [id number] 17:02:00 Test Item Value Reference Range Interpretation Comments GLUCOSE (test code = 105 mg/dL 75-100 H 06D) SODIUM (test code = 141 mmol/L 136-145 01A) POTASSIUM (test code = 3.9 mmol/L 3.6-5.1 01B) CHLORIDE (test code = 105 mmol/L 98-107 04A) CO2 (test code = 02A) 30 mmol/L 22-32 ANION GAP (test code = 9.9 mmol/L ANG) BUN (test code = 05D) 24 mg/dL 7-18 H CREATININE (test code 1.3 mg/dL 0.7-1.3 = 03E) GFR (test code = GFR) 60 mL/min/1.73m\\S\\2 >=90 L GFR 69 mL/min/1.73m\\S\\2 >=90 L (test code = GFRAA) EGFR (test code = eGFR BY CKD-EPI EGFR) CALCULATION IS NOT RECOMMENDED FOR PATIENTS UNDER 18 YEARS OF AGE. BUN/CREA (test code = 19 12-20 BCR) CALCIUM (test code = 8.3 mg/dL 8.3-9.5 09D) GLUCOMETER GLUCOSE- LAB USE [id number] 16:13:00 Test Item Value Reference Range Interpretation Comments GLUCOMETER (test code 127 mg/dL 70-100 H CLEANE D METERMeter ID: = GMG) [id number] tor: 9 GLUCOMETER GLUCOSE- LAB USE [id number] 11:11:00 Test Item Value Reference Range Interpretation Comments GLUCOMETER (test code 120 mg/dL 70-100 H CLEANE D METERMeter ID: = GMG) [id number] tor: [id number] GLUCOMETER GLUCOSE- LAB USE [id number] 07:35:00 Test Item Value Reference Range Interpretation Comments GLUCOMETER (test code = 90 mg/dL 70-100 JABARI ADOLPH METERMeter ID: GMG) [id number] tor: 3912 [facility] GLUCOMETER GLUCOSE- LAB USE [id number] 19:21:00 Test Item Value Reference Range Interpretation Comments GLUCOMETER (test code 222 mg/dL 70-100 H CLEANE D METERMeter ID: = GMG) [id number] tor: 2472 ISMAIL ESTEVAN GOKE GLUCOMETER GLUCOSE- LAB USE [id number] 19:00:00 Test Item Value Reference Range Interpretation Comments GLUCOMETER (test code 156 mg/dL 70-100 H CLEANE D METERMeter ID: = GMG) [id number] tor: 2472 ISMAIL ESTEVAN GOKE GLUCOMETER GLUCOSE- LAB USE [id number] 16:32:00 Test Item Value Reference Range Interpretation Comments GLUCOMETER (test code 157 mg/dL 70-100 H CLEANE D METERMeter ID: = GMG) [id number] tor: 3831 NICKO RAHMANSON GLUCOMETER GLUCOSE- LAB USE [id number] 11:52:00 Test Item Value Reference Range Interpretation Comments GLUCOMETER (test code 170 mg/dL 70-100 H CLEANE D METERMeter ID: = GMG) [id number] tor: 1328 REFUGIO BENNETT HY GLUCOMETER GLUCOSE- LAB USE [id number] 07:36:00 Test Item Value Reference Range Interpretation Comments GLUCOMETER (test code 101 mg/dL 70-100 H CLEANE D METERMeter ID: = GMG) [id number] tor: [address] MARIANO GLUCOMETER GLUCOSE- LAB USE [id number] 18:56:00 Test Item Value Reference Range Interpretation Comments GLUCOMETER (test code 155 mg/dL 70-100 H CLEANE D METERMeter ID: = GMG) [id number] tor: 9867 TAMMY CHILDS GLUCOMETER GLUCOSE- LAB USE [id number] 16:38:00 Test Item Value Reference Range Interpretation Comments GLUCOMETER (test 211 mg/dL 70-100 H CLEANED MET ERDAILY code = GMG) MAINTENANCEMete r ID: [id number] tor: 4612 STEPAN FARMERUILAR GLUCOMETER GLUCOSE- LAB USE [id number] 12:00:00 Test Item Value Reference Range Interpretation Comments GLUCOMETER (test 123 mg/dL 70-100 H DAILY MAINT ENANCEMeter code = GMG) ID: [id number] perator: 5635 PERNELL HENRY GLUCOMETER GLUCOSE- LAB USE [id number] 11:40:00 Test Item Value Reference Range Interpretation Comments GLUCOMETER (test 152 mg/dL 70-100 H DAILY MAINT ENANCEMeter code = GMG) ID: [id number] perator: 5635 PERNELL HENRY GLUCOMETER GLUCOSE- LAB USE [id number] 07:56:00 Test Item Value Reference Range Interpretation Comments GLUCOMETER (test code = 92 mg/dL 70-100 JABARI ADOLPH METERMeter ID: GMG) [id number] tor: 3912 [facility] GLUCOMETER GLUCOSE- LAB USE [id number] 19:49:00 Test Item Value Reference Range Interpretation Comments GLUCOMETER (test code = 88 mg/dL 70-100 JABARI ADOLPH METERMeter ID: GMG) [id number] tor: 8379 GLUCOMETER GLUCOSE- LAB USE [id number] 16:59:00 Test Item Value Reference Range Interpretation Comments GLUCOMETER (test code = 81 mg/dL 70-100 JBAARI ADOLPH METERMeter ID: GMG) [id number] tor: [id number] GLUCOMETER GLUCOSE- LAB USE [id number] 11:59:00 Test Item Value Reference Range Interpretation Comments GLUCOMETER (test code = 162 mg/dL 70-100 H Mete r ID: GMG) [id number] tor: 6680 [facility] GLUCOMETER GLUCOSE- LAB USE [id number] 07:32:00 Test Item Value Reference Range Interpretation Comments GLUCOMETER (test code = 90 mg/dL 70-100 JABARI ADOLPH METERMeter ID: GMG) [id number] tor: 8413 TRISTANRAY PARSONSE GLUCOMETER GLUCOSE- LAB USE [id number] 19:45:00 Test Item Value Reference Range Interpretation Comments GLUCOMETER (test code 112 mg/dL 70-100 H CLEANE D METERMeter ID: = GMG) [id number] tor: 0040 NAHUN CHAPPELL GLUCOMETER GLUCOSE- LAB USE [id number] 16:21:00 Test Item Value Reference Range Interpretation Comments GLUCOMETER (test code 248 mg/dL 70-100 H CLEANE D METERMeter ID: = GMG) [id number] tor: [id number] GLUCOMETER GLUCOSE- LAB USE [id number] 12:07:00 Test Item Value Reference Range Interpretation Comments GLUCOMETER (test code 132 mg/dL 70-100 H CLEANE D METERMeter ID: = GMG) [id number] tor: 8413 TRISTAN PARSONSE LL VALPROIC ACID (DEPAKENE)2020-08-19 07:29:00 Test Item Value Reference Range Interpretation Comments VALP ACID (test code = 95A) 55.4 ug/mL 50.0-100.0 GLUCOMETER GLUCOSE- LAB USE [id number] 07:26:00 Test Item Value Reference Range Interpretation Comments GLUCOMETER (test code = 91 mg/dL 70-100 JABARI ADOLPH METERMeter ID: GMG) [id number] tor: 8413 TRISTAN ROSS LL GLUCOMETER GLUCOSE- LAB USE [id number] 19:06:00 Test Item Value Reference Range Interpretation Comments GLUCOMETER (test code 141 mg/dL 70-100 H CLEANE D METERMeter ID: = GMG) [id number] tor: 7339 RUDOLPH OKEEFEI SON GLUCOMETER GLUCOSE- LAB USE [id number] 16:46:00 Test Item Value Reference Range Interpretation Comments GLUCOMETER (test 142 mg/dL 70-100 H CLEANED MET ERDAILY code = GMG) MAINTENANCEMete r ID: [id number] tor: 8413 TRISTAN MONTALVO GLUCOMETER GLUCOSE- LAB USE [id number] 11:55:00 Test Item Value Reference Range Interpretation Comments GLUCOMETER (test code 122 mg/dL 70-100 H CLEANE D METERMeter ID: = GMG) [id number] tor: 4611 ANGELA WATERS AN GLUCOMETER GLUCOSE- LAB USE [id number] 07:11:00 Test Item Value Reference Range Interpretation Comments GLUCOMETER (test 94 mg/dL 70-100 CLEANED MET ERDAILY code = GMG) MAINTENANCEMete r ID: [id number] tor: 4612 STEPAN CAREY GLUCOMETER GLUCOSE- LAB USE [id number] 19:08:00 Test Item Value Reference Range Interpretation Comments GLUCOMETER (test code 204 mg/dL 70-100 H CLEANE D METERMeter ID: = GMG) [id number] tor: 6497 CLINTON ROMEROINDE GLUCOMETER GLUCOSE- LAB USE [id number] 15:45:00 Test Item Value Reference Range Interpretation Comments GLUCOMETER (test code 135 mg/dL 70-100 H CLEANE D METERMeter ID: = GMG) [id number] tor: 4611 ANGELA JT AN GLUCOMETER GLUCOSE- LAB USE [id number] 11:44:00 Test Item Value Reference Range Interpretation Comments GLUCOMETER (test code = 95 mg/dL 70-100 JABARI ADOLPH METERMeter ID: GMG) [id number] tor: 8413 TRISTAN ROSS LL GLUCOMETER GLUCOSE- LAB USE [id number] 09:26:00 Test Item Value Reference Range Interpretation Comments GLUCOMETER (test code = 97 mg/dL 70-100 Mete r ID: GMG) [id number] tor: 1231 MARK KANGU RA GLUCOMETER GLUCOSE- LAB USE [id number] 19:41:00 Test Item Value Reference Range Interpretation Comments GLUCOMETER (test code 75 mg/dL 70-100 CLEANE D METERREPEAT = GMG) TESTMeter ID: [id number] tor: 0040 NAHUN CHAPPELL GLUCOMETER GLUCOSE- LAB USE [id number] 16:52:00 Test Item Value Reference Range Interpretation Comments GLUCOMETER (test code 91 mg/dL 70-100 CLEANE D METERMeter ID: = GMG) [id number] tor: 9379 BETTY STERLING IEWHITE GLUCOMETER GLUCOSE- LAB USE [id number] 11:25:00 Test Item Value Reference Range Interpretation Comments GLUCOMETER (test code 161 mg/dL 70-100 H CLEANE D METERMeter ID: = GMG) [id number] tor: 937 GLUCOMETER GLUCOSE- LAB USE [id number] 07:19:00 Test Item Value Reference Range Interpretation Comments GLUCOMETER (test code = 82 mg/dL 70-100 JABARI ADOPLH METERMeter ID: GMG) [id number] tor: 4611 ANGELA JT AN GLUCOMETER GLUCOSE- LAB USE [id number] 19:40:00 Test Item Value Reference Range Interpretation Comments GLUCOMETER (test 212 mg/dL 70-100 H Result Not code = GMG) ConfirmedMeter ID: [id number] tor: 8379 GLUCOMETER GLUCOSE- LAB USE [id number] 16:14:00 Test Item Value Reference Range Interpretation Comments GLUCOMETER (test code 192 mg/dL 70-100 H CLEANE D METERMeter ID: = GMG) [id number] tor: [id number] GLUCOMETER GLUCOSE- LAB USE [id number] 10:58:00 Test Item Value Reference Range Interpretation Comments GLUCOMETER (test code = 154 mg/dL 70-100 H Mete r ID: GMG) [id number] tor: 4611 ANGELA WATERS AN GLUCOMETER GLUCOSE- LAB USE [id number] 07:48:00 Test Item Value Reference Range Interpretation Comments GLUCOMETER (test code = 82 mg/dL 70-100 JABARI ADOLPH METERMeter ID: GMG) [id number] tor: [id number] GLUCOMETER GLUCOSE- LAB USE [id number] 07:12:00 Test Item Value Reference Range Interpretation Comments GLUCOMETER (test code = 75 mg/dL 70-100 JABARI ADOLPH METERMeter ID: GMG) [id number] tor: [id number] GLUCOMETER GLUCOSE- LAB USE [id number] 19:18:00 Test Item Value Reference Range Interpretation Comments GLUCOMETER (test code = 85 mg/dL 70-100 JABARI ADOLPH METERMeter ID: GMG) [id number] tor: 2472 ANGELO BARRETO GOKE GLUCOMETER GLUCOSE- LAB USE [id number] 15:42:00 Test Item Value Reference Range Interpretation Comments GLUCOMETER (test code 143 mg/dL 70-100 H CLEANE D METERMeter ID: = GMG) [id number] tor: 4611 ANGELA WATERS AN GLUCOMETER GLUCOSE- LAB USE [id number] 10:26:00 Test Item Value Reference Range Interpretation Comments GLUCOMETER (test code 163 mg/dL 70-100 H CLEANE D METERMeter ID: = GMG) [id number] tor: [id number] GLUCOMETER GLUCOSE- LAB USE [id number] 07:31:00 Test Item Value Reference Range Interpretation Comments GLUCOMETER (test code 100 mg/dL 70-100 CLEANE D METERMeter ID: = GMG) [id number] tor: 8825 GILDARDO PEDRAZA RA VALPROIC ACID (DEPAKENE)2020-08-14 07:20:00 Test Item Value Reference Range Interpretation Comments VALP ACID (test code = 95A) 60.2 ug/mL 50.0-100.0 GLUCOMETER GLUCOSE- LAB USE [id number] 19:13:00 Test Item Value Reference Range Interpretation Comments GLUCOMETER (test code = 94 mg/dL 70-100 JABARI ADOLPH METERMeter ID: GMG) [id number] tor: 3831 NICKO CORTES CKSON GLUCOMETER GLUCOSE- LAB USE [id number] 16:47:00 Test Item Value Reference Range Interpretation Comments GLUCOMETER (test code 130 mg/dL 70-100 H CLEANE D METERMeter ID: = GMG) [id number] tor: 3912 [facility] GLUCOMETER GLUCOSE- LAB USE [id number] 11:44:00 Test Item Value Reference Range Interpretation Comments GLUCOMETER (test code 149 mg/dL 70-100 H CLEANE D METERMeter ID: = GMG) [id number] tor: 1328 REFUGIO MURCatrachito HY GLUCOMETER GLUCOSE- LAB USE [id number] 07:24:00 Test Item Value Reference Range Interpretation Comments GLUCOMETER (test code 130 mg/dL 70-100 H CLEANE D METERMeter ID: = GMG) [id number] tor: 8280 MARY FIELDS LTDANIEL GLUCOMETER GLUCOSE- LAB USE [id number] 19:33:00 Test Item Value Reference Range Interpretation Comments GLUCOMETER (test code 181 mg/dL 70-100 H CLEANE D METERMeter ID: = GMG) [id number] tor: 3831 NICKO CORTES CKSON URINALYSIS WITH [id number] 18:34:00 Test Item Value Reference Range Interpretation Comments COLOR (test code = COLU) YELLOW YELLOW CLARITY (test code = CLA) CLEAR CLEAR GLUCOSE UR (test code = UA GLUCOSE) NEGATIVE NEGATIVE BILI UR (test code = BILE) NEGATIVE NEGATIVE KETONES UR (test code = PETE) TRACE NEGATIVE A SP GRAVITY (test code = SPGR) 1.018 1.005-1.030 PH UR (test code = PH) 6.0 4.5-8.0 PROTEIN UR (test code = PU) 2+ NEGATIVE A UROBIL UR (test code = UROQ) 0.2 EU/dL 0.2-1.0 NITRITE UR (test code = NITRITE) NEGATIVE NEGATIVE BLOOD UR (test code = UA BLOOD) NEGATIVE NEGATIVE LEUK ES UR (test code = LEUK) TRACE NEGATIVE A WBC UR (test code = UWBC) 3 /HPF 0-3 RBC UR (test code = URBC) 1 /HPF 0-2 EPITH UR (test code = UEPC) NONE /LPF NONE BACTERIA UR (test code = UBACT) NONE /HPF NONE CAST UR (test code = CAST) /LPF NONE CRYSTAL UR (test code = CRYU) / LPF NONE MUCUS UR (test code = MUC) / HPF NONE AMORPH UR (test code = JASEN) / HPF NONE TRICH UR (test code = UTRICH) /HPF NONE YEAST UR (test code = UY) /HPF NONE SPERM UR (test code = USPERM) /HPF NONE GLUCOMETER GLUCOSE- LAB USE [id number] 15:56:00 Test Item Value Reference Range Interpretation Comments GLUCOMETER (test code 124 mg/dL 70-100 H CLEANE D METERMeter ID: = GMG) [id number] tor: 8280 MARY FIELDS [facility]3] GLUCOMETER GLUCOSE- LAB USE [id number] 11:23:00 Test Item Value Reference Range Interpretation Comments GLUCOMETER (test code = 128 mg/dL 70-100 H Mete r ID: GMG) [id number] tor: 6680 [place] GLUCOMETER GLUCOSE- LAB USE [id number] 07:37:00 Test Item Value Reference Range Interpretation Comments GLUCOMETER (test code = 98 mg/dL 70-100 JABARI ADOLPH METERMeter ID: GMG) [id number] tor: 1331 AMOYA SCOT T VALPROIC ACID (DEPAKENE)2020-08-12 07:22:00 Test Item Value Reference Range Interpretation Comments VALP ACID (test code = 95A) 54.6 ug/mL 50.0-100.0 GLUCOMETER GLUCOSE- LAB USE [id number] 19:27:00 Test Item Value Reference Range Interpretation Comments GLUCOMETER (test code 149 mg/dL 70-100 H CLEANE D METERMeter ID: = GMG) [id number] tor: 0040 NAHUN CHAPPELL GLUCOMETER GLUCOSE- LAB USE [id number] 15:46:00 Test Item Value Reference Range Interpretation Comments GLUCOMETER (test code 153 mg/dL 70-100 H CLEANE D METERMeter ID: = GMG) [id number] tor: 4611 ANGELA JT AN GLUCOMETER GLUCOSE- LAB USE [id number] 11:08:00 Test Item Value Reference Range Interpretation Comments GLUCOMETER (test code 129 mg/dL 70-100 H CLEANE D METERMeter ID: = GMG) [id number] tor: 8413 TRISTAN ROSS LL GLUCOMETER GLUCOSE- LAB USE [id number] 07:03:00 Test Item Value Reference Range Interpretation Comments GLUCOMETER (test code 103 mg/dL 70-100 H CLEANE D METERMeter ID: = GMG) [id number] tor: 1331 MICHAELAPOLLO SCOT T GLUCOMETER GLUCOSE- LAB USE [id number] 19:53:00 Test Item Value Reference Range Interpretation Comments GLUCOMETER (test 193 mg/dL 70-100 H Result Not code = GMG) ConfirmedMeter ID: [id number] tor: 8379 GLUCOMETER GLUCOSE- LAB USE [id number] 15:45:00 Test Item Value Reference Range Interpretation Comments GLUCOMETER (test code 119 mg/dL 70-100 H CLEANE D METERMeter ID: = GMG) [id number] tor: 4611 ANGELA JT AN GLUCOMETER GLUCOSE- LAB USE [id number] 07:12:00 Test Item Value Reference Range Interpretation Comments GLUCOMETER (test code 111 mg/dL 70-100 H CLEANE D METERMeter ID: = GMG) [id number] tor: 8413 TRISTANRAY PARSONSE LL GLUCOMETER GLUCOSE- LAB USE [id number] 19:22:00 Test Item Value Reference Range Interpretation Comments GLUCOMETER (test code 107 mg/dL 70-100 H CLEANE D METERMeter ID: = GMG) [id number] tor: 85982 SHAINA CHRISTINA GLUCOMETER GLUCOSE- LAB USE [id number] 16:22:00 Test Item Value Reference Range Interpretation Comments GLUCOMETER (test code 114 mg/dL 70-100 H CLEANE D METERMeter ID: = GMG) [id number] tor: 8413 TRISTAN ROSS LL GLUCOMETER GLUCOSE- LAB USE [id number] 11:28:00 Test Item Value Reference Range Interpretation Comments GLUCOMETER (test code 145 mg/dL 70-100 H CLEANE D METERMeter ID: = GMG) [id number] tor: 8280 MARY GLASER URINE [id number] 09:51:00 Test Item Value Reference Range Interpretation Comments Culture Observations THREE OR MORE SPECIES (test code = COB1) OF BACTERIA ISOLATED. PROBABLE CONTAMINATION. Culture Observations IDENTIFICATION AND (test code = COB17) SUSCEPTIBILITY NOT INDICATED. RECOLLECTION RECOMMENDED GLUCOMETER GLUCOSE- LAB USE [id number] 07:05:00 Test Item Value Reference Range Interpretation Comments GLUCOMETER (test 123 mg/dL 70-100 H CLEANED MET ERDAILY code = GMG) MAINTENANCEMete r ID: [id number] tor: 4612 STEPAN FARMERUILAR GLUCOMETER GLUCOSE- LAB USE [id number] 19:12:00 Test Item Value Reference Range Interpretation Comments GLUCOMETER (test code 199 mg/dL 70-100 H CLEANE D METERMeter ID: = GMG) [id number] tor: 98 GLUCOMETER GLUCOSE- LAB USE [id number] 16:47:00 Test Item Value Reference Range Interpretation Comments GLUCOMETER (test code 127 mg/dL 70-100 H CLEANE D METERMeter ID: = GMG) [id number] tor: 1328 REFUGIO BENNETT HY GLUCOMETER GLUCOSE- LAB USE [id number] 11:28:00 Test Item Value Reference Range Interpretation Comments GLUCOMETER (test code 201 mg/dL 70-100 H CLEANE D METERMeter ID: = GMG) [id number] tor: 8280 MARY FIELDS LTON GLUCOMETER GLUCOSE- LAB USE [id number] 09:10:00 Test Item Value Reference Range Interpretation Comments GLUCOMETER (test code 162 mg/dL 70-100 H CLEANE D METERMeter ID: = GMG) [id number] tor: 8280 AMRY FIELDS LTON GLUCOMETER GLUCOSE- LAB USE [id number] 07:17:00 Test Item Value Reference Range Interpretation Comments GLUCOMETER (test 107 mg/dL 70-100 H CLEANED MET ERDAILY code = GMG) MAINTENANCEMete r ID: [id number] tor: 4612 STEPAN CAREY GLUCOMETER GLUCOSE- LAB USE [id number] 19:07:00 Test Item Value Reference Range Interpretation Comments GLUCOMETER (test code 135 mg/dL 70-100 H CLEANE D METERMeter ID: = GMG) [id number] tor: 9867 TAMMY G ENTILE GLUCOMETER GLUCOSE- LAB USE [id number] 15:54:00 Test Item Value Reference Range Interpretation Comments GLUCOMETER (test code 136 mg/dL 70-100 H CLEANE D METERMeter ID: = GMG) [id number] tor: [id number] MARY FI[place] GLUCOMETER GLUCOSE- LAB USE [id number] 11:52:00 Test Item Value Reference Range Interpretation Comments GLUCOMETER (test code 151 mg/dL 70-100 H CLEANE D METERMeter ID: = GMG) [id number] tor: [id number] BETTY SATT IEWHITE GLUCOMETER GLUCOSE- LAB USE [id number] 09:36:00 Test Item Value Reference Range Interpretation Comments GLUCOMETER (test code 199 mg/dL 70-100 H CLEANE D METERMeter ID: = GMG) [id number] tor: [id number] BETTY SATT IEWHITE VALPROIC ACID (DEPAKENE)2020-08-07 06:56:00 Test Item Value Reference Range Interpretation Comments VALP ACID (test code = 95A) 20.3 ug/mL 50.0-100.0 LL [id number] 06:44:00 Test Item Value Reference Range Interpretation Comments FOLATE (test code = A75) 11.8 ng/mL 3.1-17.5 LIPID [id number] 06:44:00 Test Item Value Reference Range Interpretation Comments CHOLESTROL (test code = 44A) 138 mg/dL 140-200 L TRIGLYCERI (test code = 42B) 144 mg/dL <=149 HDL (test code = 83D) 40.0 mg/dL 40.0-60.0 LDL (test code = 34B) 83 mg/dL <=99 CHL/HDL (test code = CHR) 3.4 0.0-3.4 [id number] 06:28:00 Test Item Value Reference Range Interpretation Comments MAGNESIUM (test code = 48A) 2.5 mg/dL 1.8-2.4 H THYROID PANEL/SCREEN (TSH)2020-08-07 02:33:00 Test Item Value Reference Range Interpretation Comments TSH (test code = A57) 3.430 uIU/mL 0.358-3.740 [id number] 02:32:00 Test Item Value Reference Range Interpretation Comments PREALBUMIN (test code = 08E) 38 mg/dL 18-38 B12 [id number] 02:32:00 Test Item Value Reference Range Interpretation Comments VIT B12 (test code = A60) 379.0 pg/mL 180.0-914.0 [id number] 02:14:00 Test Item Value Reference Range Interpretation Comments Hb A1C % (test code 6.2 % 3.8-6.4 = HBA) A1C % (test code = HbA1c (% ) A1C) Reference Range Normal <5.7 Prediabetes 5.7-6.4 Diabetic >=6.5 URINALYSIS WITH [id number] 23:23:00 Test Item Value Reference Range Interpretation Comments COLOR (test code = COLU) YELLOW YELLOW CLARITY (test code = CLA) TURBID CLEAR A GLUCOSE UR (test code = UA NEGATIVE NEGATIVE GLUCOSE) BILI UR (test code = BILE) NEGATIVE NEGATIVE KETONES UR (test code = PETE) NEGATIVE NEGATIVE SP GRAVITY (test code = SPGR) 1.021 1.005-1.030 PH UR (test code = PH) 5.5 4.5-8.0 PROTEIN UR (test code = PU) 2+ NEGATIVE A UROBIL UR (test code = UROQ) 0.2 EU/dL 0.2-1.0 NITRITE UR (test code = NEGATIVE NEGATIVE NITRITE) BLOOD UR (test code = UA BLOOD) 1+ NEGATIVE A LEUK ES UR (test code = LEUK) 3+ NEGATIVE A WBC UR (test code = UWBC) >100 /HPF 0-3 H RBC UR (test code = URBC) 4 /HPF 0-2 H EPITH UR (test code = UEPC) NONE /LPF NONE BACTERIA UR (test code = UBACT) MODERATE /HPF NONE A CAST UR (test code = CAST) /LPF NONE CRYSTAL UR (test code = CRYU) / LPF NONE MUCUS UR (test code = MUC) / HPF NONE AMORPH UR (test code = JASEN) / HPF NONE TRICH UR (test code = UTRICH) /HPF NONE YEAST UR (test code = UY) /HPF NONE SPERM UR (test code = USPERM) /HPF NONE DRUGS OF [id number] 23:18:00 Test Item Value Reference Range Interpretation Comments DRUG SCRN (test code = URINE DRUG HDOA) SCREEN This is an unconfirmed screening result and should not be used for non-medical purposes CANNABINOD (test code Negative NEGATIVE = 88C) AMPHETAMINE (test code Negative NEGATIVE = 84A) BENZODIAZP (test code Negative NEGATIVE = 86A) BARBITURAT (test code Negative NEGATIVE = 85A) OPIATES (test code = Negative NEGATIVE 92B) COCAINE (test code = Negative NEGATIVE 87A) PHENCYCLID (test code Negative NEGATIVE = 66A) METHADONE (test code = Negative NEGATIVE 64A) DOAH (test code = DOAH.) URINE DRUG SCREEN Cut-off values are as follows: Cannabinoids 50 ng/mL Cocaine 300 ng/mL Amphetamines 1000 ng/mL Phencyclidine 25 ng/mL Benzodiazepines 200 ng.mL Methadone 300 ng/mL Barbiturates 200 ng/mL Opiates 2000 ng/mL PRO TIME AND [id number] 21:35:00 Test Item Value Reference Range Interpretation Comments PT (test code = 12.2 s 9.8-13.6 TT) INR (test code = 1.0 INR) INRH (test code = SUGGESTED THERAPEUTIC INRH) RANGE FOR INR: 2.5 - 3.5 For Patients with Prosthetic Valves or Patients with recurrent Thromboembolic Events 2.0 - 3.0 For Most Other Applications PTT (test code = 29.0 s 20.2-38.0 PTT) PTTH (test code = To monitor the PTTH) effectiveness of heparin, we offer the Anti-Xa (Heparin Assay). It can be used for either unfractionated or LMW Heparin. Order Code is ANTI-XA [id number] 21:35:00 Test Item Value Reference Range Interpretation Comments D-DIMER (test code = 277 ng/mL D-DU 0-234 H DDI) D-DIMER COMMENT (test *Level to rule out code = DDCOM) DVT or PE: <235 ng/mL D-DU* SARS-CoV (RAPID ANTIGEN)2020-08-06 20:52:00 Test Item Value Reference Range Interpretation Comments SARS-CoV (ANTIGEN) NEGATIVE NEGATIVE (test code = COVAG) COVID AG (test This test has been code = COVAGC) marketed under the FDA Emergency Use Authorization (EUA) to meet challenges of the COVID-19 pandemic. The validation standards normally enforced by the FDA and the [employer] the [place] [employer] (CAP) are more stringent than those required for this test. Therefore, the result should be interpreted with caution and close attention to other clinical and epidemiological data [id number] 19:40:00 Test Item Value Reference Range Interpretation Comments ACETAMINPH (test code = 94M) <2.0 ug/mL 10.0-30.0 L [id number] 19:34:00 Test Item Value Reference Range Interpretation Comments FERRITIN (test code = A19) 159.0 ng/mL 26.0-388.0 LDH-LACTIC [id number] 19:34:00 Test Item Value Reference Range Interpretation Comments LDH (test code = 33A) 151 IU/L 100-190 C-REACTIVE PROTEIN [id number] 19:28:00 Test Item Value Reference Range Interpretation Comments CRP QUANT (test code <2.9 mg/L 0.0-2.9 = CRPQ) Method Change (test Please note the code = METHOD) change in Method and the reference range [id number] 19:27:00 Test Item Value Reference Range Interpretation Comments SALICYLATE (test code = 94B) <1.7 mg/dL 2.8-20.0 L CARDIAC [id number] 19:25:00 Test Item Value Reference Range Interpretation Comments TROPONIN I (test code = A84) <0.015 ng/mL 0.000-0.045 ALCOHOL BLOOD (ETOH)2020-08-06 19:25:00 Test Item Value Reference Range Interpretation Comments ETOH (test code = HALC) ETHANOL The result is to be used only for medical purposes ALCOHOL (test code = <10 mg/dL <=10 56A) COMPREHENSIVE METABOLIC [id number] 19:24:00 Test Item Value Reference Range Interpretation Comments GLUCOSE (test code = 143 mg/dL 75-100 H 06D) SODIUM (test code = 142 mmol/L 136-145 01A) POTASSIUM (test code = 5.0 mmol/L 3.6-5.1 01B) CHLORIDE (test code = 111 mmol/L 98-107 H 04A) CO2 (test code = 02A) 25 mmol/L 22-32 ANION GAP (test code = 11.0 mmol/L ANG) BUN (test code = 05D) 25 mg/dL 7-18 H CREATININE (test code 1.5 mg/dL 0.7-1.3 H = 03E) GFR (test code = GFR) 51 mL/min/1.73m\\S\\2 >=90 L GFR 59 mL/min/1.73m\\S\\2 >=90 L (test code = GFRAA) EGFR (test code = eGFR BY CKD-EPI EGFR) CALCULATION IS NOT RECOMMENDED FOR PATIENTS UNDER 18 YEARS OF AGE. BUN/CREA (test code = 17 12-20 BCR) CALCIUM (test code = 9.2 mg/dL 8.3-9.5 09D) BILI TOTAL (test code 0.2 mg/dL 0.2-1.0 = 11A) PROTEIN (test code = 7.3 g/dL 6.4-8.2 07D) ALBUMIN (test code = 3.7 g/dL 3.5-4.8 08D) GLOBULIN (test code = 3.6 g/dL 1.5-3.8 GLB) ALB/GLOB (test code = 1.0 1.0-2.6 AGRR) ALK PHOS (test code = 75 IU/L 42-121 35A) AST (test code = 30A) 14 IU/L <=42 ALT (test code = 31A) 20 IU/L <=78 AMMONIA [id number] 19:20:00 Test Item Value Reference Range Interpretation Comments AMMONIA (test code = 54A) 29 umol/L 11-32 CBC (INCLUDES AUTOMATED DIFFERENTIAL)2020-08-06 19:12:00 Test Item Value Reference Range Interpretation Comments WBC (test code = WBC) 6.8 10\\S\\3/uL 4.5-11.0 RBC (test code = RBC) 3.88 10\\S\\6/uL 4.20-5.60 L HGB (test code = HBG) 11.7 g/dL 14.0-18.0 L HCT (test code = HCT) 35.6 % 35.0-46.0 MCV (test code = MCV) 91.8 fL 80.0-94.0 MCH (test code = MCH) 30.2 pg 27.0-31.0 MCHC (test code = MCHC) 32.9 g/dL 32.0-36.0 RDW (test code = RDW) 12.5 % 11.5-14.5 PLT (test code = PLT) 194 10\\S\\3/uL 130-400 MPV (test code = MPV) 11.2 fL 9.4-12.4 NEUTROP # (test code = NE#) 3.7 10\\S\\3/uL 2.0-8.0 LYMPH # (test code = LY#) 2.4 10\\S\\3/uL 1.2-4.0 MONOCYTE # (test code = MO#) 0.5 10\\S\\3/uL 0.0-1.1 EOSINOPH # (test code = EO#) 0.2 10\\S\\3/uL 0.0-0.7 BASOPHIL # (test code = BA#) 0.0 10\\S\\3/uL 0.0-0.3 IG # (test code = IG#) 0.02 10\\S\\3/uL 0.00-0.06 NRBC # (test code = NRBC#) 0.00 10\\S\\3/uL 0.00-0.01 NEUTROPH % (test code = NE%) 53.9 % 35.0-73.0 LYMPH % (test code = LY%) 35.6 % 20.0-55.0 MONO % (test code = MO%) 7.2 % 2.5-10.0 EOSINOPH % (test code = EO%) 2.6 % 0.0-5.0 BASOPHIL % (test code = BA%) 0.4 % 0.0-2.0 IG % (test code = IG%) 0.3 % 0.0-0.8 NRBC% (test code = NRBC%) 0.0 % 0.0-0.2 MANDIFF (test code = MDIFF) NO NO RBC MORPH (test code = RBCMOR) NORMAL GLUCOMETER GLUCOSE- LAB USE [id number] 11:50:00 Test Item Value Reference Range Interpretation Comments GLUCOMETER (test code = 126 mg/dL 70-100 H Mete r ID: GMG) [id number] tor: 3007 LILLI BA NKS GLUCOMETER GLUCOSE- LAB USE [id number] 07:21:00 Test Item Value Reference Range Interpretation Comments GLUCOMETER (test 85 mg/dL 70-100 CLEANED MET ERDAILY code = GMG) MAINTENANCEMete r ID: [id number] tor: 4612 STEPAN CAREY SARS-CoV (RAPID ANTIGEN)2020-07-11 06:46:00 Test Item Value Reference Range Interpretation Comments SARS-CoV (ANTIGEN) NEGATIVE NEGATIVE (test code = COVAG) COVID AG (test This test has been code = COVAGC) marketed under the FDA Emergency Use Authorization (EUA) to meet challenges of the COVID-19 pandemic. The validation standards normally enforced by the FDA and the [employer] the [place] [employer] (CAP) are more stringent than those required for this test. Therefore, the result should be interpreted with caution and close attention to other clinical and epidemiological data GLUCOMETER GLUCOSE- LAB USE [id number] 19:35:00 Test Item Value Reference Range Interpretation Comments GLUCOMETER (test code 147 mg/dL 70-100 H CLEANE D METERMeter ID: = GMG) [id number] tor: 3549 SACHIN FarahYO GLUCOMETER GLUCOSE- LAB USE [id number] 16:35:00 Test Item Value Reference Range Interpretation Comments GLUCOMETER (test code 103 mg/dL 70-100 H CLEANE D METERMeter ID: = GMG) [id number] tor: 3831 NICKO JA JOSIAHBARTOLOME GLUCOMETER GLUCOSE- LAB USE [id number] 12:10:00 Test Item Value Reference Range Interpretation Comments GLUCOMETER (test 148 mg/dL 70-100 H Result Not code = GMG) ConfirmedMeter ID: [id number] tor: 5635 PERNELL HENRY GLUCOMETER GLUCOSE- LAB USE [id number] 07:38:00 Test Item Value Reference Range Interpretation Comments GLUCOMETER (test code = 85 mg/dL 70-100 JABARI ADOLPH METERMeter ID: GMG) [id number] tor: 7964 JAVY DU KES GLUCOMETER GLUCOSE- LAB USE [id number] 19:24:00 Test Item Value Reference Range Interpretation Comments GLUCOMETER (test code = 95 mg/dL 70-100 JABARI ADOLPH METERMeter ID: GMG) [id number] tor: 8413 TRISTAN OSULLIVAN GLUCOMETER GLUCOSE- LAB USE [id number] 16:23:00 Test Item Value Reference Range Interpretation Comments GLUCOMETER (test code = 90 mg/dL 70-100 JAABRI ADOLPH METERMeter ID: GMG) [id number] tor: 8413 TRISTAN ROSS LL GLUCOMETER GLUCOSE- LAB USE [id number] 11:59:00 Test Item Value Reference Range Interpretation Comments GLUCOMETER (test code = 98 mg/dL 70-100 JABARI ADOLPH METERMeter ID: GMG) [id number] tor: 7964 JAVY MUNOZS GLUCOMETER GLUCOSE- LAB USE [id number] 07:16:00 Test Item Value Reference Range Interpretation Comments GLUCOMETER (test code 91 mg/dL 70-100 Result Not = GMG) ConfirmedMeter ID: [id number] tor: 4611 ANGELA BERNSTEIN GLUCOMETER GLUCOSE- LAB USE [id number] 19:24:00 Test Item Value Reference Range Interpretation Comments GLUCOMETER (test code 198 mg/dL 70-100 H CLEANE D METERMeter ID: = GMG) [id number] tor: 8413 TRISTAN ROSS LL GLUCOMETER GLUCOSE- LAB USE [id number] 15:57:00 Test Item Value Reference Range Interpretation Comments GLUCOMETER (test code = 99 mg/dL 70-100 JABARI ADOLPH METERMeter ID: GMG) [id number] tor: 8413 TRISTAN ROSS LL GLUCOMETER GLUCOSE- LAB USE [id number] 11:05:00 Test Item Value Reference Range Interpretation Comments GLUCOMETER (test code = 99 mg/dL 70-100 JABARI ADOLPH METERMeter ID: GMG) [id number] tor: 8825 GILDARDO PHONGE RA GLUCOMETER GLUCOSE- LAB USE [id number] 07:30:00 Test Item Value Reference Range Interpretation Comments GLUCOMETER (test code 104 mg/dL 70-100 H CLEANE D METERMeter ID: = GMG) [id number] tor: 4611 ANGELA WATERS AN GLUCOMETER GLUCOSE- LAB USE [id number] 19:00:00 Test Item Value Reference Range Interpretation Comments GLUCOMETER (test code 128 mg/dL 70-100 H CLEANE D METERMeter ID: = GMG) [id number] tor: 8413 TRISTAN ROSS LL GLUCOMETER GLUCOSE- LAB USE [id number] 16:40:00 Test Item Value Reference Range Interpretation Comments GLUCOMETER (test code = 77 mg/dL 70-100 JABARI ADOLPH METERMeter ID: GMG) [id number] tor: 39[address] DANE MC MARIANO GLUCOMETER GLUCOSE- LAB USE [id number] 11:41:00 Test Item Value Reference Range Interpretation Comments GLUCOMETER (test code 159 mg/dL 70-100 H CLEANE D METERMeter ID: = GMG) [id number] tor: 8413 TRISTAN ROSS LL GLUCOMETER GLUCOSE- LAB USE [id number] 07:39:00 Test Item Value Reference Range Interpretation Comments GLUCOMETER (test 93 mg/dL 70-100 CLEANED MET ERDAILY code = GMG) MAINTENANCEMete r ID: [id number] tor: 4612 STEPAN CAREY GLUCOMETER GLUCOSE- LAB USE [id number] 19:10:00 Test Item Value Reference Range Interpretation Comments GLUCOMETER (test code 155 mg/dL 70-100 H CLEANE D METERMeter ID: = GMG) [id number] tor: 7339 RUDOLPH MANJARREZ SON GLUCOMETER GLUCOSE- LAB USE [id number] 16:10:00 Test Item Value Reference Range Interpretation Comments GLUCOMETER (test code 100 mg/dL 70-100 CLEANE D METERMeter ID: = GMG) [id number] tor: 3413 EDDY TARIQ AO GLUCOMETER GLUCOSE- LAB USE [id number] 11:45:00 Test Item Value Reference Range Interpretation Comments GLUCOMETER (test code 128 mg/dL 70-100 H CLEANE D METERMeter ID: = GMG) [id number] tor: 8413 TRISTAN ROSS LL GLUCOMETER GLUCOSE- LAB USE [id number] 07:37:00 Test Item Value Reference Range Interpretation Comments GLUCOMETER (test code = 87 mg/dL 70-100 JABARI ADOLPH METERMeter ID: GMG) [id number] tor: 3831 NICKO SHAW VALPROIC ACID (DEPAKENE)2020-07-06 06:56:00 Test Item Value Reference Range Interpretation Comments VALP ACID (test code = 95A) 36.3 ug/mL 50.0-100.0 LL GLUCOMETER GLUCOSE- LAB USE [id number] 19:21:00 Test Item Value Reference Range Interpretation Comments GLUCOMETER (test code 134 mg/dL 70-100 H CLEANE D METERMeter ID: = GMG) [id number] tor: 3549 SACHIN CUNHA GLUCOMETER GLUCOSE- LAB USE [id number] 16:28:00 Test Item Value Reference Range Interpretation Comments GLUCOMETER (test code 122 mg/dL 70-100 H CLEANE D METERMeter ID: = GMG) [id number] tor: 4611 ANEGLA WATERS AN GLUCOMETER GLUCOSE- LAB USE [id number] 11:10:00 Test Item Value Reference Range Interpretation Comments GLUCOMETER (test code = 109 mg/dL 70-100 H Mete r ID: GMG) [id number] tor: 8825 GILDARDO LUE RA GLUCOMETER GLUCOSE- LAB USE [id number] 07:34:00 Test Item Value Reference Range Interpretation Comments GLUCOMETER (test code = 88 mg/dL 70-100 JABARI ADOLPH METERMeter ID: GMG) [id number] tor: 8825 GILDARDO LUE RA GLUCOMETER GLUCOSE- LAB USE [id number] 19:13:00 Test Item Value Reference Range Interpretation Comments GLUCOMETER (test code 166 mg/dL 70-100 H CLEANE D METERMeter ID: = GMG) [id number] tor: 9867 TAMMY Eason ENTILE GLUCOMETER GLUCOSE- LAB USE [id number] 16:24:00 Test Item Value Reference Range Interpretation Comments GLUCOMETER (test code = 97 mg/dL 70-100 JABARI ADOLPH METERMeter ID: GMG) [id number] tor: 8413 TRISTAN CODY LL GLUCOMETER GLUCOSE- LAB USE [id number] 11:44:00 Test Item Value Reference Range Interpretation Comments GLUCOMETER (test code 140 mg/dL 70-100 H CLEANE D METERMeter ID: = GMG) [id number] tor: 4611 ANGELA WATERS AN GLUCOMETER GLUCOSE- LAB USE [id number] 07:49:00 Test Item Value Reference Range Interpretation Comments GLUCOMETER (test code = 83 mg/dL 70-100 JABARI ADOLPH METERMeter ID: GMG) [id number] tor: 1328 REFUGIO BENNETT HY GLUCOMETER GLUCOSE- LAB USE [id number] 19:16:00 Test Item Value Reference Range Interpretation Comments GLUCOMETER (test code = 94 mg/dL 70-100 JABARI ADOLPH METERMeter ID: GMG) [id number] tor: 7339 RUDOLPH JOSSELINE SON GLUCOMETER GLUCOSE- LAB USE [id number] 16:26:00 Test Item Value Reference Range Interpretation Comments GLUCOMETER (test code = 94 mg/dL 70-100 JABARI ADOLPH METERMeter ID: GMG) [id number] tor: 4611 ANGELA JT AN GLUCOMETER GLUCOSE- LAB USE [id number] 11:33:00 Test Item Value Reference Range Interpretation Comments GLUCOMETER (test code 165 mg/dL 70-100 H CLEANE D METERMeter ID: = GMG) [id number] tor: 4611 ANGELA WATERS AN GLUCOMETER GLUCOSE- LAB USE [id number] 07:27:00 Test Item Value Reference Range Interpretation Comments GLUCOMETER (test code = 88 mg/dL 70-100 JABARI ADOLPH METERMeter ID: GMG) [id number] tor: 93 GLUCOMETER GLUCOSE- LAB USE [id number] 19:07:00 Test Item Value Reference Range Interpretation Comments GLUCOMETER (test code 111 mg/dL 70-100 H CLEANE D METERMeter ID: = GMG) [id number] tor: 7339 RUDOLPH JOSSELINE SON GLUCOMETER GLUCOSE- LAB USE [id number] 16:28:00 Test Item Value Reference Range Interpretation Comments GLUCOMETER (test code 137 mg/dL 70-100 H CLEANE D METERMeter ID: = GMG) [id number] tor: 84[address] TRISTAN ROSS LL GLUCOMETER GLUCOSE- LAB USE [id number] 12:01:00 Test Item Value Reference Range Interpretation Comments GLUCOMETER (test code 141 mg/dL 70-100 H CLEANE D METERMeter ID: = GMG) [id number] tor: 8413 TRISTAN ROSS LL GLUCOMETER GLUCOSE- LAB USE [id number] 07:31:00 Test Item Value Reference Range Interpretation Comments GLUCOMETER (test code 105 mg/dL 70-100 H CLEANE D METERMeter ID: = GMG) [id number] tor: 3912 [facility] MARIANO GLUCOMETER GLUCOSE- LAB USE [id number] 19:26:00 Test Item Value Reference Range Interpretation Comments GLUCOMETER (test code 102 mg/dL 70-100 H CLEANE D METERMeter ID: = GMG) [id number] tor: 7339 RUDOLPH JOSSELINE SON GLUCOMETER GLUCOSE- LAB USE [id number] 16:21:00 Test Item Value Reference Range Interpretation Comments GLUCOMETER (test 100 mg/dL 70-100 Result Not code = GMG) ConfirmedMeter ID: [id number] tor: 4611 ANGELA BERNSTEIN GLUCOMETER GLUCOSE- LAB USE [id number] 11:02:00 Test Item Value Reference Range Interpretation Comments GLUCOMETER (test code 129 mg/dL 70-100 H CLEANE D METERMeter ID: = GMG) [id number] tor: 4611 ANGELA GRIFFIN GLUCOMETER GLUCOSE- LAB USE [id number] 07:17:00 Test Item Value Reference Range Interpretation Comments GLUCOMETER (test 122 mg/dL 70-100 H CLEANED MET ERDAILY code = GMG) MAINTENANCEMete r ID: [id number] tor: 4612 STEPAN CAREY GLUCOMETER GLUCOSE- LAB USE [id number] 19:11:00 Test Item Value Reference Range Interpretation Comments GLUCOMETER (test code 106 mg/dL 70-100 H CLEANE D METERMeter ID: = GMG) [id number] tor: 7339 RUDOLPH JOSSELINE SON GLUCOMETER GLUCOSE- LAB USE [id number] 11:03:00 Test Item Value Reference Range Interpretation Comments GLUCOMETER (test code = 92 mg/dL 70-100 JABARI ADOLPH METERMeter ID: GMG) [id number] tor: 8413 TRISTANRAY PARSONSE LL GLUCOMETER GLUCOSE- LAB USE [id number] 08:08:00 Test Item Value Reference Range Interpretation Comments GLUCOMETER (test code = 96 mg/dL 70-100 JABARI ADOLPH METERMeter ID: GMG) [id number] tor: 8413 TRISTAN ROSS LL GLUCOMETER GLUCOSE- LAB USE [id number] 19:23:00 Test Item Value Reference Range Interpretation Comments GLUCOMETER (test code 106 mg/dL 70-100 H CLEANE D METERMeter ID: = GMG) [id number] tor: 3549 SACHIN CUNHA GLUCOMETER GLUCOSE- LAB USE [id number] 15:34:00 Test Item Value Reference Range Interpretation Comments GLUCOMETER (test code 108 mg/dL 70-100 H CLEANE D METERMeter ID: = GMG) [id number] tor: 843 GLUCOMETER GLUCOSE- LAB USE [id number] 11:51:00 Test Item Value Reference Range Interpretation Comments GLUCOMETER (test code = 88 mg/dL 70-100 JABARI ADOLPH METERMeter ID: GMG) [id number] tor: 84[address] TRISTAN ROSS LL GLUCOMETER GLUCOSE- LAB USE [id number] 07:46:00 Test Item Value Reference Range Interpretation Comments GLUCOMETER (test code = 95 mg/dL 70-100 JABARI ADOLPH METERMeter ID: GMG) [id number] tor: 84[address] TRISTAN ROSS LL GLUCOMETER GLUCOSE- LAB USE [id number] 19:03:00 Test Item Value Reference Range Interpretation Comments GLUCOMETER (test code 120 mg/dL 70-100 H CLEANE D METERMeter ID: = GMG) [id number] tor: 6[address] [facility] K EHINDE GLUCOMETER GLUCOSE- LAB USE [id number] 16:58:00 Test Item Value Reference Range Interpretation Comments GLUCOMETER (test code 107 mg/dL 70-100 H CLEANE D METERMeter ID: = GMG) [id number] tor: 8413 TRISTAN ROSS LL GLUCOMETER GLUCOSE- LAB USE [id number] 16:58:00 Test Item Value Reference Range Interpretation Comments GLUCOMETER (test code = 87 mg/dL 70-100 JABARI ADOLPH METERMeter ID: GMG) [id number] tor: 84[address] TRISTAN ROSS LL GLUCOMETER GLUCOSE- LAB USE [id number] 12:06:00 Test Item Value Reference Range Interpretation Comments GLUCOMETER (test 151 mg/dL 70-100 H CLEANED MET ERDAILY code = GMG) MAINTENANCEMete r ID: [id number] tor: 4612 STEPAN CAREY GLUCOMETER GLUCOSE- LAB USE [id number] 07:27:00 Test Item Value Reference Range Interpretation Comments GLUCOMETER (test code 101 mg/dL 70-100 H CLEANE D METERMeter ID: = GMG) [id number] tor: 84[address] TRISTAN ROSS LL GLUCOMETER GLUCOSE- LAB USE [id number] 19:16:00 Test Item Value Reference Range Interpretation Comments GLUCOMETER (test code 133 mg/dL 70-100 H CLEANE D METERMeter ID: = GMG) [id number] tor: [address] [place] K EHINDE GLUCOMETER GLUCOSE- LAB USE [id number] 16:52:00 Test Item Value Reference Range Interpretation Comments GLUCOMETER (test code 110 mg/dL 70-100 H CLEANE D METERMeter ID: = GMG) [id number] tor: 3912 [facility] MARIANO GLUCOMETER GLUCOSE- LAB USE [id number] 11:15:00 Test Item Value Reference Range Interpretation Comments GLUCOMETER (test code = 139 mg/dL 70-100 H Mete r ID: GMG) [id number] tor: 1328 REFUGIO MURP HY GLUCOMETER GLUCOSE- LAB USE [id number] 07:38:00 Test Item Value Reference Range Interpretation Comments GLUCOMETER (test code 115 mg/dL 70-100 H CLEANE D METERMeter ID: = GMG) [id number] tor: 1328 REFUGIO MURP HY GLUCOMETER GLUCOSE- LAB USE [id number] 19:12:00 Test Item Value Reference Range Interpretation Comments GLUCOMETER (test code 134 mg/dL 70-100 H CLEANE D METERMeter ID: = GMG) [id number] tor: 9867 TAMMY CHILDS GLUCOMETER GLUCOSE- LAB USE [id number] 17:07:00 Test Item Value Reference Range Interpretation Comments GLUCOMETER (test code 129 mg/dL 70-100 H CLEANE D METERMeter ID: = GMG) [id number] tor: [id number] GLUCOMETER GLUCOSE- LAB USE [id number] 12:18:00 Test Item Value Reference Range Interpretation Comments GLUCOMETER (test code = 96 mg/dL 70-100 JABARI ADOLPH METERMeter ID: GMG) [id number] tor: 1328 REFUGIO MURP HY GLUCOMETER GLUCOSE- LAB USE [id number] 07:42:00 Test Item Value Reference Range Interpretation Comments GLUCOMETER (test code 100 mg/dL 70-100 CLEANE D METERMeter ID: = GMG) [id number] tor: 1328 REFUGIO MURP HY GLUCOMETER GLUCOSE- LAB USE [id number] 16:22:00 Test Item Value Reference Range Interpretation Comments GLUCOMETER (test 163 mg/dL 70-100 H CLEANED MET ERDAILY code = GMG) MAINTENANCEMete r ID: [id number] tor: 4612 STEPAN CAREY GLUCOMETER GLUCOSE- LAB USE [id number] 12:35:00 Test Item Value Reference Range Interpretation Comments GLUCOMETER (test 152 mg/dL 70-100 H CLEANED MET ERDAILY code = GMG) MAINTENANCEMete r ID: [id number] tor: 4612 STEPAN CAREY [id number] 21:29:00 Test Item Value Reference Range Interpretation Comments Hb A1C % (test code 6.7 % 3.8-6.4 H = HBA) A1C % (test code = HbA1c (% ) A1C) Reference Range Normal <5.7 Prediabetes 5.7-6.4 Diabetic >=6.5 VALPROIC ACID (DEPAKENE)2020-06-24 21:02:00 Test Item Value Reference Range Interpretation Comments VALP ACID (test code = 95A) 78.4 ug/mL 50.0-100.0 B12 [id number] 20:51:00 Test Item Value Reference Range Interpretation Comments VIT B12 (test code = A60) 364.0 pg/mL 180.0-914.0 [id number] 20:51:00 Test Item Value Reference Range Interpretation Comments FOLATE (test code = A75) 17.7 ng/mL 3.1-17.5 H LIPID [id number] 20:51:00 Test Item Value Reference Range Interpretation Comments CHOLESTROL (test code = 44A) 162 mg/dL 140-200 TRIGLYCERI (test code = 42B) 115 mg/dL <=149 HDL (test code = 83D) 65.0 mg/dL 40.0-60.0 H LDL (test code = 34B) 88 mg/dL <=99 CHL/HDL (test code = CHR) 2.5 0.0-3.4 THYROID PANEL/SCREEN (TSH)2020-06-24 20:46:00 Test Item Value Reference Range Interpretation Comments TSH (test code = A57) 2.300 uIU/mL 0.358-3.740 [id number] 20:35:00 Test Item Value Reference Range Interpretation Comments PREALBUMIN (test code = 08E) 38 mg/dL 18-38 [id number] 20:23:00 Test Item Value Reference Range Interpretation Comments MAGNESIUM (test code = 48A) 2.4 mg/dL 1.8-2.4 URINALYSIS WITH [id number] 14:33:00 Test Item Value Reference Range Interpretation Comments COLOR (test code = COLU) Yellow YELLOW CLARITY (test code = CLA) Clear CLEAR GLUCOSE UR (test code = UA Negative NEGATIVE GLUCOSE) BILI UR (test code = BILE) Negative NEGATIVE KETONES UR (test code = PETE) Trace NEGATIVE SP GRAVITY (test code = SPGR) 1.025 1.005-1.030 PH UR (test code = PH) 7.0 4.5-8.0 PROTEIN UR (test code = PU) 3+ NEGATIVE A UROBIL UR (test code = UROQ) 0.2 EU/dL 0.2-1.0 NITRITE UR (test code = Negative NEGATIVE NITRITE) BLOOD UR (test code = UA Negative NEGATIVE BLOOD) LEUK ES UR (test code = LEUK) Negative NEGATIVE WBC UR (test code = UWBC) 2 /HPF 0-3 RBC UR (test code = URBC) 0 /HPF 0-2 EPITH UR (test code = UEPC) FEW /LPF NONE A BACTERIA UR (test code = NONE /HPF NONE UBACT) CAST UR (test code = CAST) /LPF NONE CRYSTAL UR (test code = CRYU) / LPF NONE MUCUS UR (test code = MUC) MODERATE / HPF NONE A AMORPH UR (test code = JASEN) / HPF NONE TRICH UR (test code = UTRICH) /HPF NONE YEAST UR (test code = UY) /HPF NONE SPERM UR (test code = USPERM) FEW /HPF NONE A DRUGS OF [id number] 14:20:00 Test Item Value Reference Range Interpretation Comments DRUG SCRN (test code = URINE DRUG HDOA) SCREEN This is an unconfirmed screening result and should not be used for non-medical purposes CANNABINOD (test code Negative NEGATIVE = 88C) AMPHETAMINE (test code Negative NEGATIVE = 84A) BENZODIAZP (test code Negative NEGATIVE = 86A) BARBITURAT (test code Negative NEGATIVE = 85A) OPIATES (test code = Negative NEGATIVE 92B) COCAINE (test code = Negative NEGATIVE 87A) PHENCYCLID (test code Negative NEGATIVE = 66A) METHADONE (test code = Negative NEGATIVE 64A) DOAH (test code = DOAH.) URINE DRUG SCREEN Cut-off values are as follows: Cannabinoids 50 ng/mL Cocaine 300 ng/mL Amphetamines 1000 ng/mL Phencyclidine 25 ng/mL Benzodiazepines 200 ng.mL Methadone 300 ng/mL Barbiturates 200 ng/mL Opiates 2000 ng/mL [id number] 14:19:00 Test Item Value Reference Range Interpretation Comments ACETAMINPH (test code = 94M) <2.0 ug/mL 10.0-30.0 L LIVER [id number] 14:07:00 Test Item Value Reference Range Interpretation Comments BILI TOTAL (test code = 11A) 0.4 mg/dL 0.2-1.0 BILI DIRCT (test code = 12A) 0.1 mg/dL 0.0-0.2 BILI INDIR (test code = BILII) 0.3 mg/dL <=0.8 PROTEIN (test code = 07D) 8.2 g/dL 6.4-8.2 ALBUMIN (test code = 08D) 4.0 g/dL 3.5-4.8 GLOBULIN (test code = GLB) 4.2 g/dL 1.5-3.8 H ALB/GLOB (test code = AGRR) 1.0 1.0-2.6 ALK PHOS (test code = 35A) 99 IU/L 42-121 AST (test code = 30A) 27 IU/L <=42 ALT (test code = 31A) 38 IU/L <=78 ALCOHOL BLOOD (ETOH)2020-06-24 14:04:00 Test Item Value Reference Range Interpretation Comments ETOH (test code = HALC) ETHANOL The result is to be used only for medical purposes ALCOHOL (test code = <10 mg/dL <=10 56A) [id number] 14:04:00 Test Item Value Reference Range Interpretation Comments SALICYLATE (test code = 94B) <1.7 mg/dL 2.8-20.0 L [id number] 13:59:00 Test Item Value Reference Range Interpretation Comments CPK (test code = 32A) 88 IU/L 39-308 [id number] 13:59:00 Test Item Value Reference Range Interpretation Comments FERRITIN (test code = A19) 184.6 ng/mL 26.0-388.0 LDH-LACTIC [id number] 13:59:00 Test Item Value Reference Range Interpretation Comments LDH (test code = 33A) 193 IU/L 100-190 H [id number] 13:56:00 Test Item Value Reference Range Interpretation Comments D-DIMER (test code = 278 ng/mL D-DU 0-234 H DDI) D-DIMER COMMENT (test *Level to rule out code = DDCOM) DVT or PE: <235 ng/mL D-DU* COMPREHENSIVE METABOLIC [id number] 13:56:00 Test Item Value Reference Range Interpretation Comments GLUCOSE (test code = 97 mg/dL 75-100 06D) SODIUM (test code = 141 mmol/L 136-145 01A) POTASSIUM (test code = 4.7 mmol/L 3.6-5.1 01B) CHLORIDE (test code = 107 mmol/L 98-107 04A) CO2 (test code = 02A) 26 mmol/L 22-32 ANION GAP (test code = 12.7 mmol/L ANG) BUN (test code = 05D) 22 mg/dL 7-18 H CREATININE (test code 1.4 mg/dL 0.7-1.3 H = 03E) GFR (test code = GFR) 57 mL/min/1.73m\\S\\2 >=90 L GFR 66 mL/min/1.73m\\S\\2 >=90 L (test code = GFRAA) EGFR (test code = eGFR BY CKD-EPI EGFR) CALCULATION IS NOT RECOMMENDED FOR PATIENTS UNDER 18 YEARS OF AGE. BUN/CREA (test code = 16 12-20 BCR) CALCIUM (test code = 8.9 mg/dL 8.3-9.5 09D) BILI TOTAL (test code 0.4 mg/dL 0.2-1.0 = 11A) PROTEIN (test code = 8.1 g/dL 6.4-8.2 07D) ALBUMIN (test code = 3.9 g/dL 3.5-4.8 08D) GLOBULIN (test code = 4.2 g/dL 1.5-3.8 H GLB) ALB/GLOB (test code = 0.9 1.0-2.6 L AGRR) ALK PHOS (test code = 99 IU/L 42-121 35A) AST (test code = 30A) 27 IU/L <=42 ALT (test code = 31A) 36 IU/L <=78 AMYLASE AND [id number] 13:56:00 Test Item Value Reference Range Interpretation Comments AMYLASE (test code = 10A) 85 U/L 28-100 LIPASE (test code = 60A) 97 IU/L 73-393 SARS-CoV (RAPID ANTIGEN)2020-06-24 13:55:00 Test Item Value Reference Range Interpretation Comments SARS-CoV (ANTIGEN) NEGATIVE NEGATIVE (test code = COVAG) COVID AG (test This test has been code = COVAGC) marketed under the FDA Emergency Use Authorization (EUA) to meet challenges of the COVID-19 pandemic. The validation standards normally enforced by the FDA and the [employer] [place] [employer] (CAP) are more stringent than those required for this test. Therefore, the result should be interpreted with caution and close attention to other clinical and epidemiological data C-REACTIVE PROTEIN [id number] 13:54:00 Test Item Value Reference Range Interpretation Comments CRP QUANT (test code <2.9 mg/L 0.0-2.9 = CRPQ) Method Change (test Please note the code = METHOD) change in Method and the reference range CARDIAC [id number] 13:54:00 Test Item Value Reference Range Interpretation Comments TROPONIN I (test code = A84) <0.015 ng/mL 0.000-0.045 LACTIC [id number] 13:53:00 Test Item Value Reference Range Interpretation Comments LACTIC ACD (test code = LA) 1.5 mmol/L 0.4-2.0 AMMONIA [id number] 13:49:00 Test Item Value Reference Range Interpretation Comments AMMONIA (test code = 54A) 26 umol/L 11-32 PRO TIME AND [id number] 13:47:00 Test Item Value Reference Range Interpretation Comments PT (test code = 10.9 s 9.8-13.6 TT) INR (test code = 1.0 INR) INRH (test code = SUGGESTED THERAPEUTIC INRH) RANGE FOR INR: 2.5 - 3.5 For Patients with Prosthetic Valves or Patients with recurrent Thromboembolic Events 2.0 - 3.0 For Most Other Applications PTT (test code = 31.4 s 20.2-38.0 PTT) PTTH (test code = To monitor the PTTH) effectiveness of heparin, we offer the Anti-Xa (Heparin Assay). It can be used for either unfractionated or LMW Heparin. Order Code is ANTI-XA CBC (INCLUDES AUTOMATED DIFFERENTIAL)2020-06-24 13:40:00 Test Item Value Reference Range Interpretation Comments WBC (test code = WBC) 6.6 10\\S\\3/uL 4.5-11.0 RBC (test code = RBC) 3.85 10\\S\\6/uL 4.20-5.60 L HGB (test code = HBG) 11.7 g/dL 14.0-18.0 L HCT (test code = HCT) 35.5 % 35.0-46.0 MCV (test code = MCV) 92.2 fL 80.0-94.0 MCH (test code = MCH) 30.4 pg 27.0-31.0 MCHC (test code = MCHC) 33.0 g/dL 32.0-36.0 RDW (test code = RDW) 13.2 % 11.5-14.5 PLT (test code = PLT) 192 10\\S\\3/uL 130-400 MPV (test code = MPV) 10.8 fL 9.4-12.4 NEUTROP # (test code = NE#) 3.4 10\\S\\3/uL 2.0-8.0 LYMPH # (test code = LY#) 2.4 10\\S\\3/uL 1.2-4.0 MONOCYTE # (test code = MO#) 0.5 10\\S\\3/uL 0.0-1.1 EOSINOPH # (test code = EO#) 0.2 10\\S\\3/uL 0.0-0.7 BASOPHIL # (test code = BA#) 0.1 10\\S\\3/uL 0.0-0.3 IG # (test code = IG#) 0.02 10\\S\\3/uL 0.00-0.06 NRBC # (test code = NRBC#) 0.00 10\\S\\3/uL 0.00-0.01 NEUTROPH % (test code = NE%) 51.0 % 35.0-73.0 LYMPH % (test code = LY%) 36.9 % 20.0-55.0 MONO % (test code = MO%) 7.8 % 2.5-10.0 EOSINOPH % (test code = EO%) 3.2 % 0.0-5.0 BASOPHIL % (test code = BA%) 0.8 % 0.0-2.0 IG % (test code = IG%) 0.3 % 0.0-0.8 NRBC% (test code = NRBC%) 0.0 % 0.0-0.2 MANDIFF (test code = MDIFF) NO NO RBC MORPH (test code = RBCMOR) NORMAL POCT GLUCOSE (AUTOMATED)2020-02-28 16:43:00 Test Item Value Reference Range Interpretation Comments POCT GLU (test code = 7647204586) 218 mg/dL 70-110 H Lab Interpretation (test code = Abnormal 82250-4) [facility] 13:43:00 Test Item Value Reference Range Interpretation Comments POCT GLU (test code = 6367361939) 146 mg/dL 70-110 H Lab Interpretation (test code = Abnormal 18453-9) [facility] METABOLIC PANEL (NA, K, CL, CO2, GLUCOSE, BUN, CREATININE, CA)2020-02-28 11:06:00 Test Item Value Reference Range Interpretation Comments NA (test code = 138 mmol/L 135-145 2862325295) K (test code = 4.5 mmol/L 3.5-5 2582351189) CL (test code = 114 mmol/L 98-108 H 7616364197) CO2 TOTAL (test code = 17 mmol/L 23-31 L 7584189152) AGAP (test code = 2-16 2990619059) BUN (test code = 26 mg/dL 7-23 H 0746130115) GLUCOSE (test code = 153 mg/dL 70-110 H 6388115227) CREATININE (test code = 1.45 mg/dL 0.6-1.25 H 6386612466) CALCIUM (test code = 8.6 mg/dL 8.6-10.6 5625658142) eGFR Calculation mL/min/1.73m2 (Non-) (test code = 5589509316) eGFR Calculation mL/min/1.73m2 () (test code = 2029793927) THALIA (test code = THALIA) Association of Glomerular Filtration Rate (GFR) and Staging of Kidney Disease* + --+ --+ ------+| GFR (mL/min/1.73 m2) ?| With Kidney Damage ?| ?Without Kidney Damage+ --------+ --------+ +| ?>90 ?| ?Stage one ?| ? Normal ?+ ---+ ---+ -------+| ?60-89 ?| ?Stage two ?| ? Decreased GFR ? + --+ --+ ------+| ?30-59 ?| ?Stage three ?| ? Stage three ? + --+ --+ ------+| ?15-29 ?| ?Stage four ? | ? Stage four ?+ ---+ ---+ -------+| ?<15 (or dialysis) ? ?| ?Stage five ? | ? Stage five ?+ ---+ ---+ -------+ *Each stage assumes the associated GFR level has been in effect for at least three months. ?Stages 1 to 5, with or without kidney disease, indicate chronic kidney disease. Notes: Determination of stages one and two (with eGFR >59mL/min/1.73 m2) requires estimation of kidney damage for at least three months as defined by structural or functional abnormalities of the kidney, manifested by either:Pathological abnormalities or Markers of kidney damage (including abnormalities in the composition of the blood or urine or abnormalities in imaging tests). Lab Interpretation Abnormal (test code = 35562-1) [facility] WITH [id number] 10:37:00 Test Item Value Reference Range Interpretation Comments WBC (test code = See_Comment [Automated 7643-2) message] The sy stem which generated this result transmitted reference range : 4.20 - 10.70 10*3/?L. The reference range was not used to interpret this result as normal/abnormal . RBC (test code = See_Comment L [Automated 368-8) message] The sy stem which generated this result transmitted reference range : 4.26 - 5.52 10*6/?L. The reference range was not used to interpret this result as normal/abnormal . HGB (test code = 10.9 g/dL 12.2-16.4 L 718-7) HCT (test code = 33.0 % 38.4-49.3 L 4544-3) MCV (test code = 91.4 fL 81.7-95.6 787-2) MCH (test code = 30.2 pg 26.1-32.7 785-6) MCHC (test code = 33.0 g/dL 31.2-35 786-4) RDW-SD (test code = 41.3 fL 38.5-51.6 58481-1) RDW-CV (test code = 12.3 % 12.1-15.4 788-0) PLT (test code = See_Comment [Automated 777-3) message] The sy stem which generated this result transmitted reference range : 150 - 328 10*3/ ?L. The reference r darin was not used to interpret this result as normal/abnormal . MPV (test code = 10.4 fL 9.8-13 62152-6) NRBC/100 WBC (test See_Comment [Automat ed code = 5884269104) message] The system which generated this result transmitted reference range : 0.0 - 10.0 /100 WBCs. The refer ence range was not u sed to interpret th is result as normal/abnormal . NRBC x10^3 (test code <0.01 See_Comment [Auto mated = 3144806370) message] The s ystem which generated this result transmitted reference range : 10*3/?L. The reference range was not used to interpret this result as normal/abnormal . GRAN MAT (NEUT) % 53.8 % (test code = 770-8) IMM GRAN % (test code 0.40 % = 7313915444) LYMPH % (test code = 34.7 % 736-9) MONO % (test code = 7.4 % 5905-5) EOS % (test code = 3.3 % 713-8) BASO % (test code = 0.4 % 706-2) GRAN MAT x10^3(ANC) 2.90 10*3/uL 1.99-6.95 (test code = 2355305895) IMM GRAN x10^3 (test <0.03 0-0.06 code = 0957097174) LYMPH x10^3 (test code 1.87 10*3/uL 1.09-3.23 = 731-0) MONO x10^3 (test code 0.40 10*3/uL 0.36-1.02 = 742-7) EOS x10^3 (test code = 0.18 10*3/uL 0.06-0.53 711-2) BASO x10^3 (test code <0.03 0.01-0.09 = 704-7) Lab Interpretation Abnormal (test code = 41260-8) [facility] GLUCOSE (AUTOMATED)2020-02-28 02:33:00 Test Item Value Reference Range Interpretation Comments POCT GLU (test code = 5869719624) 140 mg/dL 70-110 H Lab Interpretation (test code = Abnormal 29071-7) [facility] GLUCOSE (AUTOMATED)2020-02-27 21:44:00 Test Item Value Reference Range Interpretation Comments POCT GLU (test code = 6910162682) 178 mg/dL 70-110 H Lab Interpretation (test code = Abnormal 97514-4) [facility] GLUCOSE (AUTOMATED)2020-02-27 18:17:00 Test Item Value Reference Range Interpretation Comments POCT GLU (test code = 9963056810) 178 mg/dL 70-110 H Lab Interpretation (test code = Abnormal 40718-8) [facility] GLUCOSE (AUTOMATED)2020-02-27 12:57:00 Test Item Value Reference Range Interpretation Comments POCT GLU (test code = 5325220485) 132 mg/dL 70-110 H Lab Interpretation (test code = Abnormal 53751-0) [facility] METABOLIC PANEL (NA, K, CL, CO2, GLUCOSE, BUN, CREATININE, CA)2020-02-27 11:42:00 Test Item Value Reference Range Interpretation Comments NA (test code = 136 mmol/L 135-145 5654351309) K (test code = 4.8 mmol/L 3.5-5 4789283357) CL (test code = 109 mmol/L 98-108 H 8826829194) CO2 TOTAL (test code = 20 mmol/L 23-31 L 3908783952) AGAP (test code = 2-16 3566241322) BUN (test code = 24 mg/dL 7-23 H 2583803229) GLUCOSE (test code = 135 mg/dL 70-110 H 5810757863) CREATININE (test code = 1.34 mg/dL 0.6-1.25 H 6511842404) CALCIUM (test code = 8.7 mg/dL 8.6-10.6 0245186335) eGFR Calculation mL/min/1.73m2 (Non-) (test code = 7877598492) eGFR Calculation mL/min/1.73m2 () (test code = 1628029302) THALIA (test code = THALIA) Association of Glomerular Filtration Rate (GFR) and Staging of Kidney Disease* + --+ --+ ------+| GFR (mL/min/1.73 m2) ?| With Kidney Damage ?| ?Without Kidney Damage+ --------+ --------+ +| ?>90 ?| ?Stage one ?| ? Normal ?+ ---+ ---+ -------+| ?60-89 ?| ?Stage two ?| ? Decreased GFR ? + --+ --+ ------+| ?30-59 ?| ?Stage three ?| ? Stage three ? + --+ --+ ------+| ?15-29 ?| ?Stage four ? | ? Stage four ?+ ---+ ---+ -------+| ?<15 (or dialysis) ? ?| ?Stage five ? | ? Stage five ?+ ---+ ---+ -------+ *Each stage assumes the associated GFR level has been in effect for at least three months. ?Stages 1 to 5, with or without kidney disease, indicate chronic kidney disease. Notes: Determination of stages one and two (with eGFR >59mL/min/1.73 m2) requires estimation of kidney damage for at least three months as defined by structural or functional abnormalities of the kidney, manifested by either:Pathological abnormalities or Markers of kidney damage (including abnormalities in the composition of the blood or urine or abnormalities in imaging tests). Lab Interpretation Abnormal (test code = 87370-7) [facility] WITH [id number] 11:12:00 Test Item Value Reference Range Interpretation Comments WBC (test code = See_Comment [Automated 2079-2) message] The sy stem which generated this result transmitted reference range : 4.20 - 10.70 10*3/?L. The reference range was not used to interpret this result as normal/abnormal . RBC (test code = See_Comment L [Automated 669-8) message] The sy stem which generated this result transmitted reference range : 4.26 - 5.52 10*6/?L. The reference range was not used to interpret this result as normal/abnormal . HGB (test code = 11.0 g/dL 12.2-16.4 L 718-7) HCT (test code = 32.9 % 38.4-49.3 L 4544-3) MCV (test code = 90.6 fL 81.7-95.6 787-2) MCH (test code = 30.3 pg 26.1-32.7 785-6) MCHC (test code = 33.4 g/dL 31.2-35 786-4) RDW-SD (test code = 39.9 fL 38.5-51.6 98110-9) RDW-CV (test code = 12.1 % 12.1-15.4 788-0) PLT (test code = See_Comment [Automated 777-3) message] The sy stem which generated this result transmitted reference range : 150 - 328 10*3/ ?L. The reference r darin was not used to interpret this result as normal/abnormal . MPV (test code = 10.6 fL 9.8-13 03486-1) NRBC/100 WBC (test See_Comment [Automat ed code = 2867922111) message] The system which generated this result transmitted reference range : 0.0 - 10.0 /100 WBCs. The refer ence range was not u sed to interpret th is result as normal/abnormal . NRBC x10^3 (test code <0.01 See_Comment [Auto mated = 9019420892) message] The s ystem which generated this result transmitted reference range : 10*3/?L. The reference range was not used to interpret this result as normal/abnormal . GRAN MAT (NEUT) % 54.2 % (test code = 770-8) IMM GRAN % (test code 0.20 % = 0499059955) LYMPH % (test code = 35.0 % 736-9) MONO % (test code = 7.3 % 5905-5) EOS % (test code = 2.6 % 713-8) BASO % (test code = 0.7 % 706-2) GRAN MAT x10^3(ANC) 3.34 10*3/uL 1.99-6.95 (test code = 7960382098) IMM GRAN x10^3 (test <0.03 0-0.06 code = 3146243593) LYMPH x10^3 (test code 2.15 10*3/uL 1.09-3.23 = 731-0) MONO x10^3 (test code 0.45 10*3/uL 0.36-1.02 = 742-7) EOS x10^3 (test code = 0.16 10*3/uL 0.06-0.53 711-2) BASO x10^3 (test code 0.04 10*3/uL 0.01-0.09 = 704-7) Lab Interpretation Abnormal (test code = 56187-1) [facility] GLUCOSE (AUTOMATED)2020-02-27 02:21:00 Test Item Value Reference Range Interpretation Comments POCT GLU (test code = 4148242544) 200 mg/dL 70-110 H Lab Interpretation (test code = Abnormal 22739-2) [facility] GLUCOSE (AUTOMATED)2020-02-26 22:03:00 Test Item Value Reference Range Interpretation Comments POCT GLU (test code = 3857858529) 204 mg/dL 70-110 H Lab Interpretation (test code = Abnormal 53882-3) [facility] GLUCOSE (AUTOMATED)2020-02-26 18:05:00 Test Item Value Reference Range Interpretation Comments POCT GLU (test code = 1824224901) 202 mg/dL 70-110 H Lab Interpretation (test code = Abnormal 06882-3) [facility] [id number] 14:06:20 Interspinous soft tissue edema with suspicion of focal disruption/tear ofthe ligamentum flavum at C4-C5 level. No traumatic malalignment identified.Clinical correlation with point of tenderness is recommended. No acute abnormality is otherwise identified in the cervical, thoracic andlumbar spine. No significant spinal canal stenosis or neural foraminal narrowing in thespine. No abnormal cord signal.Subacute fractures of the left T11 to and T12 posterior ribs are againnoted. Preliminary Report Dictated by Resident: Gustavo James I, Dion Meeks MD., have reviewed this study and agree with the abovereport.MR CERVICAL SPINE WO CONTRAST MR THORACIC SPINE WO CONTRAST MR LUMBAR SPINE WO CONTRAST HISTORY: 59 years year-old Male concern for acute myelopathy COMPARISON: CT spine dated 02/24/2020 TECHNIQUE: Multisequence multiplanar MRI of the cervical, thoracic andlumbar spine was performed without IV contrast. CERVICAL SPINE FINDINGS: Motion degrades image quality. The cervical curvature is normal.ACDF changes with bony fusion of C5-C7are noted. The vertebral bodies are otherwise normal in heightand innormal alignment. The cervical cord is normal in caliber and signal intensity. The background marrow signal is unremarkable. Disc desiccation is noted inthe upper cervical spine. Interspinous soft tissue edema is noted at C4-C5 with a questionable focaldefect/destruction of the ligamentum flavumat this level. C2/C3: no significant spinal canal stenosis or neural foraminal narrowing. C3/C4: Central disc protrusion with thickening of the posteriorlongitudinal ligament which correlates to the oss ification on the recent CTcervical spine are noted and abutting the ventral cervical cord. Nohigh-grade spinal canal stenosis or significant neural foraminal narrowing. C4/C5: Small central disc protrusion with ligamentum flavum thickening andmild facet arthrosis results in mild spinal canal stenosis.No high-gradeneural foraminal narrowing. C5/C6: Fused segment. No significant spinal canal stenosis or neuralforaminal narrowing. C6/C7: Fused segment. No significant spinal canal stenosis or neuralforaminal narrowing. C7/T1: no significant spinal canal stenosis or neural foraminal narrowing. Cystic en cephalomalacic changes in the left cerebellar hemisphere and leftoccipital lobe is partially visualized. THORACIC SPINE FINDINGS: The vertebral bodies are normal in height and in normal alignment. The thoracic cord is normal in caliber and demonstrates normal signalintensity. Focal prominence of the central canal is noted at T4 levellikely developmental. The intervertebral discs are well- hydrated. The background marrow signal isunremarkable. No severe spinal canal stenosis or neural foraminal narrowing is present atany level. Cortical irregularity is noted at the left 11th and 12th posterior ribs atthe costovertebral junction which correlates to the subacute fractures seenon the CT thoracic spine.Bibasilar dependent atelectasis. Subcentimeterleft upper pole simple cyst. LUMBAR SPINE FINDINGS: 5 nonrib-bearing lumbar type vertebra are noted. The lumbar curvature isnormal. The vertebral bodies are normal in height and alignment. The conusmedullaris terminates at the level of L1-L2. The cauda equina nerve rootsare unremarkable. Disc desiccation is noted at L3-L4. The background marrow signal isunremarkable. L1-L2: No significant spinal canal stenosis or neural foraminal narrowing L2-L3: No significant spinal canal stenosis or neural foraminal narrowing L3-L4: Mild diffuse disc bulge with mild facet arthrosis and ligamentumflavum thickening results in mild spinal canal stenosis. No significantneural foraminal narrowing. L4-L5: Mild bilateral facet arthrosis and ligamentum flavum thickeningresult in mild spinal canal stenosis. No significant neural foraminalnarrowing. L5-S1: No significant spinal canal stenosis or neural foraminal narrowing.An annular fissure is seen at this level. The paraspinal soft tissues are unremarkable. [facility], Radiant Results Inft User - 02/26/2020 9:07 AM CDTMR CERVICAL SPINE WO CONTRASTMR THORACIC SPINE WO CONTRASTMR LUMBAR SPINE WO CONTRASTHISTORY: 59 years year-old Male concern for acute myelopathy COMPARISON: CT spine dated 02/24/2020 TECHNIQUE: Multisequence multiplanar MRI of the cervical, thoracic andlumbar spine was performed without IV contrast.CERVICAL SPINE FINDINGS:Motion degrades image quality.The cervical curvature is normal. ACDF changes with bony fusion of C5-C7are noted. The vertebral bodies are otherwise normal in height and innormal alignment. The cervical cord is normal in caliber and signal intensity.The background marrow signal is unremarkable. Disc desiccation is noted inthe upper cervical spine.Interspinous soft tissue edema is noted at C4-C5 with a questionable focaldefect/destruction of the ligamentum flavum at this level.C2/C3: no sign ificant spinal canal stenosis or neural foraminal narrowing.C3/C4: Central disc protrusion with thickening of the posteriorlongitudinal ligament which correlates to the ossification on the recent CTcervical spine are noted and abutting the ventral cervical cord. Nohigh-grade spinal canal stenosis or si gnificant neural foraminal narrowing.C4/C5: Small central disc protrusion with ligamentum flavum thickening andmild facet arthrosis results in mild spinal canal stenosis. No high-gradeneural foraminal narrowing. C5/C6: Fused segment. No significant spinal canal stenosis or neuralforaminal narrowing.C6/C7: Fused segment. No significant spinal canal stenosis or neuralforaminal narrowing.C7/T1: no significant spinal canal stenosis or neural foraminal narrowing.Cystic encephalomalacic changes in the left cerebellar hemisphere and leftoccipital lobe is partially visualized.THORACIC SPINE FINDINGS:The vertebral bodies are normal in height and in normal alignment. The thoracic cord is normal in caliber and demonstrates normal signalintensity. Focal prominence of the central canal is noted at T4 levellikely developmental.The intervertebral discs are well-hydrated. The background marrow signal isunremarkable.No severe spinal canal stenosis or neural foraminal narrowing is present atany level.Cortical irr egularity is noted at the left 11th and 12th posterior ribs atthe costovertebral junction which correlates to the subacute fractures seenon the CT thoracic spine. Bibasilar dependent atelectasis. Subcentimeterleft upper pole simple cyst.LUMBAR SPINE FINDINGS:5 nonrib-bearing lumbar type vertebra are noted. The lumbar curvature isnormal. The vertebral bodies are normal in height and alignment. The conusmedullaris terminates at the level of L1-L2. The cauda equina nerve rootsare unremarkable.Disc desiccation is noted at L3-L4. The background marrow signal isunremarkable.L1-L2: No significant spinal canal stenosis or neural foraminal narrowingL2-L3: No significant spinal canal stenosis or neural foraminal narrowingL3-L4: Mild diffuse disc bulge with mild facet arthrosis and ligamentumflavum thickening results in mild spinal canal stenosis. No significantneural foraminal narrowing.L4-L5: Mild bilateral facet arthrosis and ligamentum flavum thickeningresult in mild spinal canal stenosis. No significant neural foraminalnarrowing.L5-S1: No significant spinal canal stenosis or neural foraminal narrowing.An annular fissure is seen at this level.The paraspinal soft tissues are unremarkable.IMPRESSIONInterspinous soft tissue edema with suspicion of focal disruption/tear ofthe ligamentum flavum at C4-M7asfob. No traumatic malalignment identified.Clinical correlation with point of tenderness is recommended. No acute abnormality is otherwise identified in the cervical, thoracic andlumbar spine.No significant spinal canal stenosis or neural foraminal narrowing in thespine. No abnormal cord signal.Subacute fractures of the left T11 to and T12 posterior ribs are againnoted.Preliminary Report Dictated byResident: GustavoDion Chong MD., have reviewed this study and agree with the abovereport.[facility] CERVICAL SPINE WO [id number] 14:06:20 Interspinous soft tissue edema with suspicion of focal disruption/tear ofthe ligamentum flavum at C4-C5 level. No traumatic malalignment identified.Clinical correlation with point of tenderness is recommended. No acute abnormality is otherwise identified in the cervical, thoracic andlumbar spine. No significant spinal canal stenosis or neural foraminal narrowing in thespine. No abnormal cord signal.Subacute fractures of the left T11 to and T12 posterior ribs are againnoted. Preliminary Report Dictated by Resident: Dion Pierre MD., have reviewed this study and agree with the abovereport.MR CERVICAL SPINE WO CONTRAST MR THORACIC SPINE WO CONTRAST MR LUMBAR SPINE WO CONTRAST HISTORY: 59 years year-old Male concern for acute myelopathy COMPARISON: CT spine dated 02/24/2020 TECHNIQUE: Multisequence multiplanar MRI of the cervical, thoracic andlumbar spine was performed without IV contrast. CERVICAL SPINE FINDINGS: Motion degrades image quality. The cervical curvature is normal.ACDF changes with bony fusion of C5-C7are noted. The vertebral bodies are otherwise normal in heightand innormal alignment. The cervical cord is normal in caliber and signal intensity. The background marrow signal is unremarkable. Disc desiccation is noted inthe upper cervical spine. Interspinous soft tissue edema is noted at C4-C5 with a questionable focaldefect/destruction of the ligamentum flavumat this level. C2/C3: no significant spinal canal stenosis or neural foraminal narrowing. C3/C4: Central disc protrusion with thickening of the posteriorlongitudinal ligament which correlates to the ossification on the recent CTcervical spine are noted and abutting the ventral cervical cord. Nohigh-grade spinal canal stenosis or significant neural foraminal narrowing. C4/C5: Small central disc protrusion with ligamentum flavum thickening andmild facet arthrosis results in mild spinal canal stenosis.No high-gradeneural foraminal narrowing. C5/C6: Fused segment. No significant spinal canal stenosis or neuralforaminal narrowing. C6/C7: Fused segment. No significant spinal canal stenosis or neuralforaminal narrowing. C7/T1: no significant spinal canal stenosis or neural foraminal narrowing. Cystic encephalomalacic changes in the left cerebellar hemisphere and leftoccipital lobe is partially visualized. THORACIC SPINE FINDINGS: The vertebral bodies are normal in height and in normal alignment. The thoracic cord is normal in caliber and demonstrates normal signalintensity. Focal prominence of the central canal is noted at T4 levellikely developmental. The intervertebral discs are well-hydrated. The background marrow signal isunremarkable. No severe spinal canal stenosis or neural foraminal narrowing is present atany level. Cortical irregularity is noted at the left 11th and 12th posterior ribs atthe costovertebral junction which correlates to the subacute fractures seenon the CT thoracic spine.Bibasilar dependent atelectasis. Subcentimeterleft upper pole simple cyst. LUMBAR SPINE FINDINGS: 5 nonrib- bearing lumbar type vertebra are noted. The lumbar curvature isnormal. The vertebral bodies are normal in height and alignment. The conusmedullaris terminates at the level of L1-L2. The cauda equina nerve rootsare unremarkable. Disc desiccation is noted at L3-L4. The background marrow signal isunremarkable. L1-L2: No significant spinal canal stenosis or neural foraminal narrowing L2-L3: No significant spinal canal stenosis or neural foraminal narrowing L3-L4: Mild diffuse disc bulge with mild facet arthrosis and ligamentumflavum thickening results in mild spinal canal stenosis. No significantneural foraminal narrowing. L4-L5: Mild bilateral facet arthrosis and ligamentum flavum thickeningresult in mild spinal canal stenosis. No significant neural foraminalnarrowing. L5-S1: No significant spinal canal stenosis or neural foraminal narrowing.An annular fissure is seen at this level. The paraspinal soft tissues are unremarkable. [facility], Radiant Results Inft User - 02/26/2020 9:10 AM CDTMR CERVICAL SPINE WO CONTRASTMR THORACIC SPINE WO CONTRASTMR LUMBAR SPINE WO CONTRASTHISTORY: 59 years year-old Male concern for acute myelopathy COMPARISON: CT spine dated 02/24/2020 TECHNIQUE: Multisequence multiplanar MRI of the cervical, thoracic andlumbar spine was performed without IV contrast.CERVICAL SPINE FINDINGS:Motion degrades image quality.The cervical curvature is normal. ACDF changes with bony fusion of C5-C7are noted. The vertebral bodies are otherwise normal in height and innormal alignment. The cervical cord is normal in caliber and signal intensity.The background marrow signal is unremarkable. Disc desiccation is noted inthe upper cervical spine.Interspinous soft tissue edema is noted at C4- C5 with a questionable focaldefect/destruction of the ligamentum flavum at this level.C2/C3: no significant spinal canal stenosis or neural foraminal narrowing.C3/C4: Central disc protrusion with thickening of the posteriorlongitudinal ligament which correlates to the ossification on the recent CTcervical spine are noted and abutting the ventral cervical cord. Nohigh-grade spinal canal stenosis or significant neural foraminal narrowing.C4/C5: Small central disc protrusion with ligamentum flavum thickening andmild facet arthrosis results in mild spinal canal stenosis. No high- gradeneural foraminal narrowing. C5/C6: Fused segment. No significant spinal canal stenosis or neuralforaminal narrowing.C6/C7: Fused segment. No significant spinal canal stenosis or neuralforaminal narrowing.C7/T1: no significant spinal canal stenosis or neural foraminal narrowing.Cystic encephalomalacic changes in the left cerebellar hemisphere and leftoccipital lobe is partially visualized.THORACIC SPINE FINDINGS:The vertebral bodies are normal in height and in normal alignment. The thoracic cord is normal in caliber and demonstrates normal signalintensity. Focal prominence of the central canal is noted at T4 levellikely developmental.The intervertebral discs are well-hydrated. The background marrow signal isunremarkable.No severe spinal canal stenosis or neural foraminal narrowing is present atany level.Cortical irregularity is noted at the left 11th and 12th posterior ribs atthe costovertebral junction which correlates to the subacute fractures seenon the CT thoracic spine. Bibasilar dependent atelectasis. Subcentimeterleft upper pole simple cyst.LUMBAR SPINE FINDINGS:5 nonrib-bearing lumbar type vertebra are noted. The lumbar curvature isnormal. The vertebral bodies are normal in height and alignment. The conu smedullaris terminates at the level of L1-L2. The cauda equina nerve rootsare unremarkable.Disc desiccation is noted at L3-L4. The background marrow signal isunremarkable.L1-L2: No significant spinal canal stenosis or neural foraminal narrowingL2-L3: No significant spinal canal stenosis or neural foraminal narrowingL3-L4: Mild diffuse disc bulge with mild facet arthrosis and ligamentumflavum thickening results in mild spinal canal stenosis. No significantneural foraminal narrowing.L4-L5: Mild bilateral facet arthrosis and ligamentum flavum thickeningresult in mild spinal canal stenosis. No significant neural foraminalnarrowing.L5-S1: No significant spinal canal stenosis or neural foraminal narrowing.An annular fissure is seen at this level.The paraspinal soft tissues are unremarkable.IMPRESSIONInterspinous soft tissue edema with suspicion of focal disruption/tear ofthe ligamentum flavum at C4-S3aoopj. No traumatic malalignment identified.Clinical correlation with point of tenderness is recommended. No acute abnormality is otherwise identified in the cervical, thoracic andlumbar spine.No significant spinal canal stenosis or neural foraminal narrowing in thespine. No abnormal cord signal.Subacute fractures of the left T11 to and T12 posterior ribs are againnoted.Preliminary Report Dictated byResident: Dion Watts MD., have reviewed this study and agree with the abovereport.[facility] THORACIC SPINE WO [id number] 14:06:20 Interspinous soft tissue edema with suspicion of focal disruption/tear ofthe ligamentum flavum at C4-C5 level. No traumatic malalignment identified.Clinical correlation with point of tenderness is recommended. No acute abnormality is otherwise identified in the cervical, thoracic andlumbar spine. No significant spinal canal stenosis or neural foraminal narrowing in thespine. No abnormal cord signal.Subacute fractures of the left T11 to and T12 posterior ribs are againnoted. Preliminary Report Dictated by Resident: Dion Pierre MD., have reviewed this study and agree with the abovereport.MR CERVICAL SPINE WO CONTRAST MR THORACIC SPINE WO CONTRAST MR LUMBAR SPINE WO CONTRAST HISTORY: 59 years year-old Male concern for acute myelopathy COMPARISON: CT spine dated 02/24/2020 TECHNIQUE: Multisequence multiplanar MRI of the cervical, thoracic andlumbar spine was performed without IV contrast. CERVICAL SPINE FINDINGS: Motion degrades image quality. The cervical curvature is normal.ACDF changes with bony fusion of C5-C7are noted. The vertebral bodies are otherwise normal in heightand innormal alignment. The cervical cord is normal in caliber and signal intensity. The background marrow signal is unremarkable. Disc desiccation is noted inthe upper cervical spine. Interspinous soft tissue edema is noted at C4-C5 with a questionable focaldefect/destruction of the ligamentum flavumat this level. C2/C3: no significant spinal canal stenosis or neural foraminal narrowing. C3/C4: Central disc protrusion with thickening of the posteriorlongitudinal ligament which correlates to the ossification on the recent CTcervical spine are noted and abutting the ventral cervical cord. Nohigh-grade spinal canal stenosis or significant neural foraminal narrowing. C4/C5: Small central disc protrusion with ligamentum flavum thickening andmild facet arthrosis results in mild spinal canal stenosis.No high-gradeneural foraminal narrowing. C5/C6: Fused segment. No significant spinal canal stenosis or neuralforaminal narrowing. C6/C7: Fused segment. No significant spinal canal stenosis or neuralforaminal narrowing. C7/T1: no significant spinal canal stenosis or neural foraminal narrowing. Cystic encephalomalacic changes in the left cerebellar hemisphere and leftoccipital lobe is partially visualized. THORACIC SPINE FINDINGS: The vertebral bodies are normal in height and in normal alignment. The thoracic cord is normal in caliber and demonstrates normal signalintensity. Focal prominence of the central canal is noted at T4 levellikely developmental. The intervertebral discs are well-hydrated. The background marrow signal isunremarkable. No severe spinal canal stenosis or neural foraminal narrowing is present atany level. Cortical irregularity is noted at the left 11th and 12th posterior ribs atthe costovertebral junction which correlates to the subacute fractures seenon the CT thoracic spine.Bibasilar dependent atelectasis. Subcentimeterleft upper pole simple cyst. LUMBAR SPINE FINDINGS: 5 nonrib- bearing lumbar type vertebra are noted. The lumbar curvature isnormal. The vertebral bodies are normal in height and alignment. The conusmedullaris terminates at the level of L1-L2. The cauda equina nerve rootsare unremarkable. Disc desiccation is noted at L3-L4. The background marrow signal isunremarkable. L1-L2: No significant spinal canal stenosis or neural foraminal narrowing L2-L3: No significant spinal canal stenosis or neural foraminal narrowing L3-L4: Mild diffuse disc bulge with mild facet arthrosis and ligamentumflavum thickening results in mild spinal canal stenosis. No significantneural foraminal narrowing. L4-L5: Mild bilateral facet arthrosis and ligamentum flavum thickeningresult in mild spinal canal stenosis. No significant neural foraminalnarrowing. L5-S1: No significant spinal canal stenosis or neural foraminal narrowing.An annular fissure is seen at this level. The paraspinal soft tissues are unremarkable. [facility], Radiant Results Inft User - 02/26/2020 9:07 AM CDTMR CERVICAL SPINE WO CONTRASTMR THORACIC SPINE WO CONTRASTMR LUMBAR SPINE WO CONTRASTHISTORY: 59 years year-old Male concern for acute myelopathy COMPARISON: CT spine dated 02/24/2020 TECHNIQUE: Multisequence multiplanar MRI of the cervical, thoracic andlumbar spine was performed without IV contrast.CERVICAL SPINE FINDINGS:Motion degrades image quality.The cervical curvature is normal. ACDF changes with bony fusion of C5-C7are noted. The vertebral bodies are otherwise normal in height and innormal alignment. The cervical cord is normal in caliber and signal intensity.The background marrow signal is unremarkable. Disc desiccation is noted inthe upper cervical spine.Interspinous soft tissue edema is noted at C4- C5 with a questionable focaldefect/destruction of the ligamentum flavum at this level.C2/C3: no significant spinal canal stenosis or neural foraminal narrowing.C3/C4: Central disc protrusion with thickening of the posteriorlongitudinal ligament which correlates to the ossification on the recent CTcervical spine are noted and abutting the ventral cervical cord. Nohigh-grade spinal canal stenosis or significant neural foraminal narrowing.C4/C5: Small central disc protrusion with ligamentum flavum thickening andmild facet arthrosis results in mild spinal canal stenosis. No high- gradeneural foraminal narrowing. C5/C6: Fused segment. No significant spinal canal stenosis or neuralforaminal narrowing.C6/C7: Fused segment. No significant spinal canal stenosis or neuralforaminal narrowing.C7/T1: no significant spinal canal stenosis or neural foraminal narrowing.Cystic encephalomalacic changes in the left cerebellar hemisphere and leftoccipital lobe is partially visualized.THORACIC SPINE FINDINGS:The vertebral bodies are normal in height and in normal alignment. The thoracic cord is normal in caliber and demonstrates normal signalintensity. Focal prominence of the central canal is noted at T4 levellikely developmental.The intervertebral discs are well-hydrated. The background marrow signal isunremarkable.No severe spinal canal stenosis or neural foraminal narrowing is present atany level.Cortical irregularity is noted at the left 11th and 12th posterior ribs atthe costovertebral junction which correlates to the subacute fractures seenon the CT thoracic spine. Bibasilar dependent atelectasis. Subcentimeterleft upper pole simple cyst.LUMBAR SPINE FINDINGS:5 nonrib-bearing lumbar type vertebra are noted. The lumbar curvature isnormal. The vertebral bodies are normal in height and alignment. The conu smedullaris terminates at the level of L1-L2. The cauda equina nerve rootsare unremarkable.Disc desiccation is noted at L3-L4. The background marrow signal isunremarkable.L1-L2: No significant spinal canal stenosis or neural foraminal narrowingL2-L3: No significant spinal canal stenosis or neural foraminal narrowingL3-L4: Mild diffuse disc bulge with mild facet arthrosis and ligamentumflavum thickening results in mild spinal canal stenosis. No significantneural foraminal narrowing.L4-L5: Mild bilateral facet arthrosis and ligamentum flavum thickeningresult in mild spinal canal stenosis. No significant neural foraminalnarrowing.L5-S1: No significant spinal canal stenosis or neural foraminal narrowing.An annular fissure is seen at this level.The paraspinal soft tissues are unremarkable.IMPRESSIONInterspinous soft tissue edema with suspicion of focal disruption/tear ofthe ligamentum flavum at C4-F3srtpb. No traumatic malalignment identified.Clinical correlation with point of tenderness is recommended. No acute abnormality is otherwise identified in the cervical, thoracic andlumbar spine.No significant spinal canal stenosis or neural foraminal narrowing in thespine. No abnormal cord signal.Subacute fractures of the left T11 to and T12 posterior ribs are againnoted.Preliminary Report Dictated byResident: Dion Watts MD., have reviewed this study and agree with the abovereport.[facility] (NA, K, CL, CO2, GLUCOSE, BUN, CREATININE, CA)2020-02-26 11:53:00 Test Item Value Reference Range Interpretation Comments NA (test code = 135 mmol/L 135-145 1614750781) K (test code = 4.8 mmol/L 3.5-5 7035060820) CL (test code = 108 mmol/L 98-108 7550260790) CO2 TOTAL (test code = 21 mmol/L 23-31 L 4388713260) AGAP (test code = 2-16 4286251581) BUN (test code = 20 mg/dL 7-23 3239027549) GLUCOSE (test code = 172 mg/dL 70-110 H 2740528699) CREATININE (test code = 1.30 mg/dL 0.6-1.25 H 7113942558) CALCIUM (test code = 8.5 mg/dL 8.6-10.6 L 4545999398) eGFR Calculation mL/min/1.73m2 (Non-) (test code = 7303262130) eGFR Calculation mL/min/1.73m2 () (test code = 8038204208) THALIA (test code = THALIA) Association of Glomerular Filtration Rate (GFR) and Staging of Kidney Disease* + --+ --+ ------+| GFR (mL/min/1.73 m2) ?| With Kidney Damage ?| ?Without Kidney Damage+ --------+ --------+ +| ?>90 ?| ?Stage one ?| ? Normal ?+ ---+ ---+ -------+| ?60-89 ?| ?Stage two ?| ? Decreased GFR ? + --+ --+ ------+| ?30-59 ?| ?Stage three ?| ? Stage three ? + --+ --+ ------+| ?15-29 ?| ?Stage four ? | ? Stage four ?+ ---+ ---+ -------+| ?<15 (or dialysis) ? ?| ?Stage five ? | ? Stage five ?+ ---+ ---+ -------+ *Each stage assumes the associated GFR level has been in effect for at least three months. ?Stages 1 to 5, with or without kidney disease, indicate chronic kidney disease. Notes: Determination of stages one and two (with eGFR >59mL/min/1.73 m2) requires estimation of kidney damage for at least three months as defined by structural or functional abnormalities of the kidney, manifested by either:Pathological abnormalities or Markers of kidney damage (including abnormalities in the composition of the blood or urine or abnormalities in imaging tests). Lab Interpretation Abnormal (test code = 15970-1) [facility] WITH [id number] 11:33:00 Test Item Value Reference Range Interpretation Comments WBC (test code = See_Comment [Automated 6690-2) message] The sy stem which generated this result transmitted reference range : 4.20 - 10.70 10*3/?L. The reference range was not used to interpret this result as normal/abnormal . RBC (test code = See_Comment L [Automated 789-8) message] The sy stem which generated this result transmitted reference range : 4.26 - 5.52 10*6/?L. The reference range was not used to interpret this result as normal/abnormal . HGB (test code = 11.4 g/dL 12.2-16.4 L 718-7) HCT (test code = 34.1 % 38.4-49.3 L 4544-3) MCV (test code = 91.7 fL 81.7-95.6 787-2) MCH (test code = 30.6 pg 26.1-32.7 785-6) MCHC (test code = 33.4 g/dL 31.2-35 786-4) RDW-SD (test code = 40.5 fL 38.5-51.6 59733-7) RDW-CV (test code = 12.0 % 12.1-15.4 L 788-0) PLT (test code = See_Comment [Automated 777-3) message] The sy stem which generated this result transmitted reference range : 150 - 328 10*3/ ?L. The reference r darin was not used to interpret this result as normal/abnormal . MPV (test code = 10.9 fL 9.8-13 43490-8) NRBC/100 WBC (test See_Comment [Automat ed code = 4470707832) message] The system which generated this result transmitted reference range : 0.0 - 10.0 /100 WBCs. The refer ence range was not u sed to interpret th is result as normal/abnormal . NRBC x10^3 (test code <0.01 See_Comment [Auto mated = 3963233276) message] The s ystem which generated this result transmitted reference range : 10*3/?L. The reference range was not used to interpret this result as normal/abnormal . GRAN MAT (NEUT) % 52.8 % (test code = 770-8) IMM GRAN % (test code 0.30 % = 7832633908) LYMPH % (test code = 36.7 % 736-9) MONO % (test code = 7.6 % 5905-5) EOS % (test code = 2.1 % 713-8) BASO % (test code = 0.5 % 706-2) GRAN MAT x10^3(ANC) 3.96 10*3/uL 1.99-6.95 (test code = 0661712031) IMM GRAN x10^3 (test <0.03 0-0.06 code = 2541450189) LYMPH x10^3 (test code 2.75 10*3/uL 1.09-3.23 = 731-0) MONO x10^3 (test code 0.57 10*3/uL 0.36-1.02 = 742-7) EOS x10^3 (test code = 0.16 10*3/uL 0.06-0.53 711-2) BASO x10^3 (test code 0.04 10*3/uL 0.01-0.09 = 704-7) Lab Interpretation Abnormal (test code = 60593-8) [facility] B12, [id number] 06:25:00 Test Item Value Reference Range Interpretation Comments VIT B12 (test code = 237 pg/mL 240-930 L 9615559141) THALIA (test code = THALIA) Biotin has been reported to cause a positive bias, interpret results relative to patient's use of biotin. Lab Interpretation (test Abnormal code = 46951-3) [facility]2020-[facility] 06:25:00 Test Item Value Reference Range Interpretation Comments FOLATE SER (test code = 7.2 ng/mL 3-20 Biot in has been 7408646329) reported to cau se a positive bias, interpret resul ts relative to patient's use o f biotin. Lab Interpretation (test Normal code = 22569-1) [facility]PO[facility] (AUTOMATED)2020-02-26 03:25:00 Test Item Value Reference Range Interpretation Comments POCT GLU (test code = 4449845050) 184 mg/dL 70-110 H Lab Interpretation (test code = Abnormal 84016-7) [facility] HospitalSEDIMENTATION [id number] 01:40:00 Test Item Value Reference Range Interpretation Comments ESR (test code = See_Comment H [Automated message] 4590260446) The system [employer] generated this result transmitted ref erence range: 0 - 10 m m/HR. The reference r darin was not used to interpret this result as normal/abnor mal. Lab Interpretation (test Abnormal code = 67732-7) [facility] GLUCOSE (AUTOMATED)2020-02-25 23:28:00 Test Item Value Reference Range Interpretation Comments POCT GLU (test code = 0331014510) 178 mg/dL 70-110 H Lab Interpretation (test code = Abnormal 31536-9) [facility] HospitalURIC [id number] 23:23:00 Test Item Value Reference Range Interpretation Comments URIC ACID (test code = 6519081958) 8.1 mg/dL 3.6-8 H Lab Interpretation (test code = Abnormal 04262-7) [facility] HospitalCREATINE [id number] 23:22:00 Test Item Value Reference Range Interpretation Comments CK (test code = 3724989063) 106 U/L 33-194 Lab Interpretation (test code = Normal 56344-6) [facility] HospitalGLYCOSYLATED HEMOGLOBIN (A1C)2020-02-25 23:15:00 Test Item Value Reference Interpretation Comments Range HGB A1C (test code = See_Comment H [Autom ated 4548-4) message] The system which generated this result transmitted reference range : 4.0 - 6.0 % NGSP. The reference range was not used to interpret this result as normal/abnormal . THALIA (test code = %A1C (NGSP) THALIA) Interpretation (ADA)4.8-5.6 ? ? Normal or (Non-Diabetic Range)5.7-6.4 ? ? Increased Risk (Pre-Diabetic)>6.5 ?Diabetes Indicated Lab Interpretation Abnormal (test code = 23807-8) [facility] GLUCOSE (AUTOMATED)2020-02-25 21:12:00 Test Item Value Reference Range Interpretation Comments POCT GLU (test code = 8413215852) 203 mg/dL 70-110 H Lab Interpretation (test code = Abnormal 70337-4) [facility] ([facility]ATED)2020-02-25 12:58:00 Test Item Value Reference Range Interpretation Comments POCT GLU (test code = 2100180671) 196 mg/dL 70-110 H Lab Interpretation (test code = Abnormal 85662-6) [facility] Metabolic Panel (NA, K, CL, CO2, GLUCOSE, BUN, CREATININE, [place])2020-02-25 09:40:00 Test Item Value Reference Range Interpretation Comments NA (test code = 141 mmol/L 135-145 9772657266) K (test code = 4.9 mmol/L 3.5-5 8650050880) CL (test code = 109 mmol/L 98-108 H 1081390713) CO2 TOTAL (test code = 26 mmol/L 23-31 4377787129) AGAP (test code = 2-16 6855274962) BUN (test code = 35 mg/dL 7-23 H 0022226237) GLUCOSE (test code = 201 mg/dL 70-110 H 5918630341) CREATININE (test code = 1.92 mg/dL 0.6-1.25 H 3186703312) CALCIUM (test code = 8.8 mg/dL 8.6-10.6 1858811640) eGFR Calculation mL/min/1.73m2 (Non-) (test code = 2380899876) eGFR Calculation mL/min/1.73m2 () (test code = 9954308189) THALIA (test code = THALIA) Association of Glomerular Filtration Rate (GFR) and Staging of Kidney Disease* + --+ --+ ------+| GFR (mL/min/1.73 m2) ?| With Kidney Damage ?| ?Without Kidney Damage+ --------+ --------+ +| ?>90 ?| ?Stage one ?| ? Normal ?+ ---+ ---+ -------+| ?60-89 ?| ?Stage two ?| ? Decreased GFR ? + --+ --+ ------+| ?30-59 ?| ?Stage three ?| ? Stage three ? + --+ --+ ------+| ?15-29 ?| ?Stage four ? | ? Stage four ?+ ---+ ---+ -------+| ?<15 (or dialysis) ? ?| ?Stage five ? | ? Stage five ?+ ---+ ---+ -------+ *Each stage assumes the associated GFR level has been in effect for at least three months. ?Stages 1 to 5, with or without kidney disease, indicate chronic kidney disease. Notes: Determination of stages one and two (with eGFR >59mL/min/1.73 m2) requires estimation of kidney damage for at least three months as defined by structural or functional abnormalities of the kidney, manifested by either:Pathological abnormalities or Markers of kidney damage (including abnormalities in the composition of the blood or urine or abnormalities in imaging tests). Lab Interpretation Abnormal (test code = 31802-5) [facility] WITH [id number] 09:26:00 Test Item Value Reference Range Interpretation Comments WBC (test code = See_Comment [Automated 0790-2) message] The sy stem which generated this result transmitted reference range : 4.20 - 10.70 10*3/?L. The reference range was not used to interpret this result as normal/abnormal . RBC (test code = See_Comment L [Automated 919-8) message] The sy stem which generated this result transmitted reference range : 4.26 - 5.52 10*6/?L. The reference range was not used to interpret this result as normal/abnormal . HGB (test code = 11.5 g/dL 12.2-16.4 L 718-7) HCT (test code = 34.7 % 38.4-49.3 L 4544-3) MCV (test code = 92.5 fL 81.7-95.6 787-2) MCH (test code = 30.7 pg 26.1-32.7 785-6) MCHC (test code = 33.1 g/dL 31.2-35 786-4) RDW-SD (test code = 41.0 fL 38.5-51.6 08264-5) RDW-CV (test code = 12.2 % 12.1-15.4 788-0) PLT (test code = See_Comment [Automated 777-3) message] The sy stem which generated this result transmitted reference range : 150 - 328 10*3/ ?L. The reference r darin was not used to interpret this result as normal/abnormal . MPV (test code = 11.0 fL 9.8-13 41570-8) NRBC/100 WBC (test See_Comment [Automat ed code = 2898750671) message] The system which generated this result transmitted reference range : 0.0 - 10.0 /100 WBCs. The refer ence range was not u sed to interpret th is result as normal/abnormal . NRBC x10^3 (test code <0.01 See_Comment [Auto mated = [id number]) message] The s ystem which generated this result transmitted reference range : 10*3/?L. The reference range was not used to interpret this result as normal/abnormal . GRAN MAT (NEUT) % 52.5 % (test code = 770-8) IMM GRAN % (test code 0.30 % = 8088224591) LYMPH % (test code = 33.9 % 736-9) MONO % (test code = 10.4 % 5905-5) EOS % (test code = 2.2 % 713-8) BASO % (test code = 0.7 % 706-2) GRAN MAT x10^3(ANC) 3.55 10*3/uL 1.99-6.95 (test code = 9832791026) IMM GRAN x10^3 (test <0.03 0-0.06 code = 5448331454) LYMPH x10^3 (test code 2.29 10*3/uL 1.09-3.23 = 731-0) MONO x10^3 (test code 0.70 10*3/uL 0.36-1.02 = 742-7) EOS x10^3 (test code = 0.15 10*3/uL 0.06-0.53 711-2) BASO x10^3 (test code 0.05 10*3/uL 0.01-0.09 = 704-7) Lab Interpretation Abnormal (test code = 06511-9) [facility] GLUCOSE (AUTOMATED)2020-02-25 01:48:00 Test Item Value Reference Range Interpretation Comments POCT GLU (test code = 1650135247) 274 mg/dL 70-110 H Lab Interpretation (test code = Abnormal 96483-8) [facility] GLUCOSE (AUTOMATED)2020-02-24 22:01:00 Test Item Value Reference Range Interpretation Comments POCT GLU (test code = 5642465914) 113 mg/dL 70-110 H Lab Interpretation (test code = Abnormal 73591-7) [facility] [id number] 19:21:43 1. ?No acute intracranial findings. Multiple supra and infratentorialchronic infarctions are noted.2. ?Subacute fractures involving the left posterior- lateral 11th and 12thribs. 3. ?Subacute fractures involving the transverse processes of P6zlthcgnbfts. 4. ?No other fractures identified in the cervical, thoracic and lumbarspine. Multilevel degenerative changes are seen. IYo MD., have reviewed this study and agree with the abovereport.HISTORY: Polytrauma, critical, head/C-spine injury suspected CT TRAUMAPANEL (ASSAULT WITH LOSS OF CONSCIOUSNESS) TECHNIQUE:CT head without contrast.CT cervical, thoracic and lumbar spine was performed without IV contrast. COMPARISON: 01/28/2020 FINDINGS: CT HEAD: Large chronic infarct in the left occipital lobe is unchanged from theprior exam, conforming to the [employer] territory. Chronic infarcts are also seenin the right frontal lobe white matter and right caudate. Small chronicinfarctions are seen in the left cerebellar hemisphere and the chanelle. Thebrain volume is otherwise appropriate for patient's age. There is nomidline shift. The basal cisterns are preserved. No acute intracranialhemorrhage or mass effect is seen. The extracranial tissues demonstrate noacute findings. CT cervical spine: There are postsurgical changes are seen from anterior spinal fusionspanning C5-C7. Solid fusion of the vertebral bodies is seen. Streakartifact from the surgical hardware is noted. There is normal sagittalalignment. No acute fractures are seen. The craniocervical junction isintact. Mild degenerative changes of the nonfused cervical spine are noted. CT thoracicspine: There is normal thoracic kyphosis and sagittal alignment. The vertebralbody heights are preserved. No acute fractures are seen. Mild multileveldegenerative changes are seen in the form of disc space narrowing andmarginal osteophytes. Flowing anterior osteophytes are noted in the mid tolower thoracic spine. A subacute fracture involving the left posterior 12thrib is seen (2:90). No acute fractures in the left 12th rib were alsoidentified. CT lumbar spine: Mild displaced, subacute fractures seen in the transverse process of L1.These are new since the abnormal CT from 12/21/2019. No other fractures areseen. The vertebral body heights are within normal limits. Milddegenerative changes in the form of disc space narrowing and marginalosteophytes. [facility], [facility] Results Inft User - 02/24/2020 2:22 PM CDTHISTORY: Polytrauma, critical, head/C-spine injury suspected CT TRAUMAPANEL (ASSAULT WITH LOSS OF CONSCIOUSNESS)TECHNIQUE:CT head without contrast.CT cervical, thoracic and lumbar spine was performed without IV contrast.COMPARISON: 01/28/2020FINDINGS:CT HEAD:Large chronic infarct in the left occipital lobe is unchanged from theprior exam, conforming to the [employer] territory. Chronic infarcts are also seenin the right frontal lobe white matter and right caudate. Small chronicinfarctions are seen in the left cerebellar hemisphere and the chanelle. Thebrain volume is otherwise appropriate for patient's age. There is nomidline shift. The basal cisterns are preserved. No acute intracranialhemorrhage or masseffect is seen. The extracranial tissues demonstrate noacute findings.CT cervical spine:There are postsurgical changes are seen from anterior spinal fusionspanning C5-C7. Solid fusion of the vertebral bodies is seen. Streakartifact from the surgical hardware is noted. There is normal sagittalalignment. No acute fractures are seen. The craniocervical junction isintact. Mild degenerative changes of the nonfused cervical spine are noted.CT thoracic spine:There is normal thoracic kyphosis and sagittal alignment. The vertebralbody heights are preserved. No acute fractures are seen. Mild multileveldegenerative changes are seen in the form of disc space narrowing andmarginal osteophytes. Flowing anterior osteophytes are noted in the mid tolower thoracic spine. A subacute fracture involving the left posterior 12thrib is seen (2:90). No acute fractures in the left 12th rib were alsoidentified.CT lumbar spine:Mild displaced, subacute fractures seen in the transverse process of L1.These are new since the abnormal CT from 12/21/2019. No other fractures areseen. The vertebral body heights are within normal limits. Milddegenerative changes in the form of disc space narrowing and marginalosteophytes.IMPRESSION1. No acute intracranial findings. Multiple supra and infratentorialchronic infarctions are noted.2. Subacute fractures involving the left posterior-lateral 11th and 12thribs.3. Subacute fractures involving the transverse processes of A1etvwvmptzzz.4. No other fractures identified in the cervical, thoracic and lumbarspine. Multilevel degenerative changes are seen.Yo Mejia MD., have reviewed this study and agree with the abovereport.[facility] [id number] 19:21:43 1. ?No acute intracranial findings. Multiple supra and infratentorialchronic infarctions are noted.2. ?Subacute fractures involving the left posterior-lateral 11th and 12thribs. 3. ?Subacute fractures involving the transverse processes of Z7vluwimardlj. 4. ?No other fractures identified in the cervical, thoracic and lumbarspine. Multilevel degenerative changes are seen. Yo Mejia MD., have reviewed this study and agree with the abovereport.HISTORY: Polytrauma, critical, head/C-spine injur y suspected CT TRAUMAPANEL (ASSAULT WITH LOSS OF CONSCIOUSNESS) TECHNIQUE:CT head without contrast.CT cervical, thoracic and lumbar spine was performed without IV contrast. COMPARISON: 01/28/2020 FINDINGS: CT HEAD: Large chronic infarct in the left occipital lobe is unchanged from theprior exam, conforming to the [employer] territory. Chronic infarcts are also seenin the right frontal lobe white matter and right caudate. Small chronicinfarctions are seen in the left cerebellar hemisphere and the chanelle. Thebrain volume is otherwise appropriate for patient's age. There is nomidline shift. The basal cisterns are preserved. No acute intracranialhemorrhage or mass effect is seen. The extracranial tissues demonstrate noacute findings. CT cervical spine: There are postsurgical changes are seen from anterior spinal fusionspanning C5-C7. Solid fusion of the vertebral bodies is seen. Streakartifact from the surgical hardware is noted. There is normal sagittalalignment. No acute fractures are seen. The craniocervical junction isintact. Mild degenerative changes of the nonfused cervical spine are noted. CT thoracicspine: There is normal thoracic kyphosis and sagittal alignment. The vertebralbody heights are preserved. No acute fractures are seen. Mild multileveldegenerative changes are seen in the form of disc space narrowing andmarginal osteophytes. Flowing anterior osteophytes are noted in the mid tolower thoracic spine. A subacute fracture involving the left posterior 12thrib is seen (2:90). No acute fractures in the left 12th rib were alsoidentified. CT lumbar spine: Mild displaced, subacute fractures seen in the transverse process of L1.These are new since the abnormal CT from 12/21/2019. No other fractures areseen. The vertebral body heights are within normal limits. Milddegenerative changes in the form of disc space narrowing and marginalosteophytes. [facility], [facility] Results Inft User - 02/24/2020 2:22 PM CDTHISTORY: Polytrauma, critical, head/C-spine injury suspected CT TRAUMAPANEL (ASSAULT WITH LOSS OF CONSCIOUSNESS)TECHNIQUE:CT head without contrast.CT cervical, thoracic and lumbar spine was performed without IV contrast.COMPARISON: 01/28/2020FINDINGS:CT HEAD:Large chronic infarct in the left occipital lobe is unchanged from theprior exam, conforming to the [employer] territory. Chronic infarcts are also seenin the right frontal lobe white matter and right caudate. Small chronicinfarctions are seen in the left cerebellar hemisphere and the chanelle. Thebrain volume is otherwise appropriate for patient's age. There is nomidline shift. The basal cisterns are preserved. No acute intracranialhemorrhage or masseffect is seen. The extracranial tissues demonstrate noacute findings.CT cervical spine:There are postsurgical changes are seen from anterior spinal fusionspanning C5-C7. Solid fusion of the vertebral bodies is seen. Streakartifact from the surgical hardware is noted. There is normal sagittalalignment. No acute fractures are seen. The craniocervical junction isintact. Mild degenerative changes of thenonfused cervical spine are noted.CT thoracic spine:There is normal thoracic kyphosis and sagittal alignment. The vertebralbody heights are preserved. No acute fractures are seen. Mild multileveldegenerative changes are seen in the form of disc space narrowing andmarginal osteophytes. Flowing anteriorosteophytes are noted in the mid tolower thoracic spine. A subacute fracture involving the left posterior 12thrib is seen (2:90). No acute fractures in the left 12th rib were alsoidentified.CT lumbar spine:Mild displaced, subacute fractures seen in the transverse process of L1.These are new since the abnormal CT from 12/21/2019. No other fractures areseen. The vertebral body heights are within normal limits. Milddegenerative changes in the form of disc space narrowing and marginalosteophytes.IMPRESSION1. No acute intracranial findings. Multiple supra and infratentorialchronic infarctions are noted.2. Subacute fractures involving the left posterior-lateral 11th and 12thribs.3. Subacute fractures involving the transverse processes of J5ijwroaphtsn.4. No other fractures identified in the cervical, thoracic and lumbarspine. Multilevel degenerative changes are seen.Yo Mejia MD., have reviewed this study and agree with the abovereport. [facility] WO [id number] 19:21:43 1. ?No acute intracranial findings. Multiple supra and infratentorialchronic infarctions are noted.2. ?Subacute fractures involving the left posterior-lateral 11th and 12thribs. 3. ?Subacute fractures involving the transverse processes of I9wnpibmrdgom. 4. ?No other fractures identified in the cervical, thoracic and lumbarspine. Multilevel degenerative changes are seen. Yo Mejia MD., have reviewed this study and agree with the abovereport.HISTORY: Polytrauma, critical, head/C-spine injury suspected CT TRAUMAPANEL (ASSAULT WITH LOSS OF CONSCIOUSNESS) TECHNIQUE:CT head without contrast.CT cervical, thoracic and lumbar spine was performed without IV contrast. COMPARISON: 01/28/2020 FINDINGS: CT HEAD: Large chronic infarct in the left occipital lobe is unchanged from theprior exam, conforming to the [employer] territory. Chronic infarcts are also seenin the right frontal lobe white matter and right caudate. Small chronicinfarctions are seen in the left cerebellar hemisphere and the chanelle. Thebrain volume is otherwise appropriate for patient's age. There is nomidline shift. The basal cisterns are preserved. No acute intracranialhemorrhage or mass effect is seen. The extracranial tissues demonstr ate noacute findings. CT cervical spine: There are postsurgical changes are seen from anterior spinal fusionspanning C5-C7. Solid fusion of the vertebral bodies is seen. Streakartifact from the surgical hardware is noted. There is normal sagittalalignment. No acute fractures are seen. The craniocervical junction isintact. Mild degenerative changes of the nonfused cervical spine are noted. CT thoracicspine: There is normal thoracic kyphosis and sagittal alignment. The vertebralbody heights are preserved. No acute fractures are seen. Mild multileveldegenerative changes are seen in the form of disc space narrowing andmarginal osteophytes. Flowing anterior osteophytes are noted in the mid tolower thoracic spine. A subacute fracture involving the left posterior 12thrib is seen (2:90). No acute fractures in the left 12th rib were alsoidentified. CT lumbar spine: Mild displaced, subacute fractures seen in the transverse process of L1.These are new since the abnormal CT from 12/21/2019. No other fractures areseen. The vertebral body heights are within normal limits. Milddegenerative changes in the form of disc space narrowing and marginalosteophytes. [facility], [facility] In[facility] User - 02/24/2020 2:22 PM CDTHISTORY: Polytrauma, critical, head/C-spine injury suspected CT TRAUMAPANEL (ASSAULT WITH LOSS OF CONSCIOUSNESS)TECHNIQUE:CT head without contrast.CT cervical, thoracic and lumbar spine was performed without IV contrast.COMPARISON: 01/28/2020FINDINGS:CT HEAD:Large chronic infarct in the left occipital lobe is unchanged from theprior exam, conforming to the [employer] territory. Chronic infarcts are also seenin the right frontal lobe white matter and right caudate. Small chronicinfarctions are seen in the left cerebellar hemisphere and the chanelle. Thebrain volume is otherwise appropriate for patient's age. There is nomidline shift. The basal cisterns are preserved. No acute intracranialhemorrhage or masseffect is seen. The extracranial tissues demonstrate noacute findings.CT cervical spine:There are postsurgical changes are seen from anterior spinal fusionspanning C5-C7. Solid fusion of the vertebral bodies is seen. Streakartifact from the surgical hardware is noted. There is normal sagittalalignment. No acute fractures are seen. The craniocervical junction isintact. Mild degenerative changes of the nonfused cervical spine are noted.CT thoracic spine:There is normal thoracic kyphosis and sagittal alignment. The vertebralbody heights are preserved. No acute fractures are seen. Mild multileveldegenerative changes are seen in the form of disc space narrowing andmarginal osteophytes. Flowing anterior osteophytes are noted in the mid tolower thoracic spine. A subacute fracture involving the left posterior 12thrib is seen (2:90). No acute fractures in the left 12th rib were alsoidentified.CT lumbar spine:Mild displaced, subacute fractures seen in the transverse process of L1.These are new since the abnormal CT from 12/21/2019. No other fractures areseen. The vertebral body heights are within normal limits. Milddegenerative changes in the form of disc space narrowing and marginalosteophytes.IMPRESSION1. No acute intracranial findings. Multiple supra and infratentorialchronic infarctions are noted.2. Subacute fractures involving the left posterior-lateral 11th and 12thribs.3. Subacute fractures involving the transverse processes of F9fnmiaiebjic.4. No other fractures identified in the cervical, thoracic and lumbarspine. Multilevel degenerative changes are seen.Yo Mejia MD., have reviewed this study and agree with the abovereport.[facility] WO [id number] 19:21:43 1. ?No acute intracranial findings. Multiple supra and infratentorialchronic infarctions are noted.2. ?Subacute fractures involving the left posterior-lateral 11th and 12thribs. 3. ?Subacute fractures involving the transverse processes of H8anrixljtjdq. 4. ?No other fractures identified in the cervical, thoracic and lumbarspine. Multilevel degenerative changes are seen. Yo Mejia MD., have reviewed this study and agree with the abovereport.HISTORY: Polytrauma, critical, head/C-spine injury suspected CT TRAUMAPANEL (ASSAULT WITH LOSS OF CONSCIOUSNESS) TECHNIQUE:CT head without contrast.CT cervical, thoracic and lumbar spine was performed without IV contrast. COMPARISON: 01/28/2020 FINDINGS: CT HEAD: Large chronic infarct in the left occipital lobe is unchanged from theprior exam, conforming to the [employer] territory. Chronic infarcts are also seenin the right frontal lobe white matter and right caudate. Small chronicinfarctions are seen in the left cerebellar hemisphere and the chanelle. Thebrain volume is otherwise appropriate for patient's age. There is nomidline shift. The basal cisterns are preserved. No acute intracranialhemorrhage or mass effect is seen. The extracranial tissues demonstr ate noacute findings. CT cervical spine: There are postsurgical changes are seen from anterior spinal fusionspanning C5-C7. Solid fusion of the vertebral bodies is seen. Streakartifact from the surgical hardware is noted. There is normal sagittalalignment. No acute fractures are seen. The craniocervical junction isintact. Mild degenerative changes of the nonfused cervical spine are noted. CT thoracicspine: There is normal thoracic kyphosis and sagittal alignment. The vertebralbody heights are preserved. No acute fractures are seen. Mild multileveldegenerative changes are seen in the form of disc space narrowing andmarginal osteophytes. Flowing anterior osteophytes are noted in the mid tolower thoracic spine. A subacute fracture involving the left posterior 12thrib is seen (2:90). No acute fractures in the left 12th rib were alsoidentified. CT lumbar spine: Mild displaced, subacute fractures seen in the transverse process of L1.These are new since the abnormal CT from 12/21/2019. No other fractures areseen. The vertebral body heights are within normal limits. Milddegenerative changes in the form of disc space narrowing and marginalosteophytes. [facility], [facility] Results Inft User - 02/24/2020 2:22 PM CDTHISTORY: Polytrauma, critical, head/C-spine injury suspected CT TRAUMAPANEL (ASSAULT WITH LOSS OF CONSCIOUSNESS)TECHNIQUE:CT head without contrast.CT cervical, thoracic and lumbar spine was performed without IV contrast.COMPARISON: 01/28/2020FINDINGS:CT HEAD:Large chronic infarct in the left occipital lobe is unchanged from theprior exam, conforming to the [employer] territory. Chronic infarcts are also seenin the right frontal lobe white matter and right caudate. Small chronicinfarctions are seen in the left cerebellar hemisphere and the chanelle. Thebrain volume is otherwise appropriate for patient's age. There is nomidline shift. The basal cisterns are preserved. No acute intracranialhemorrhage or masseffect is seen. The extracranial tissues demonstrate noacute findings.CT cervical spine:There are postsurgical changes are seen from anterior spinal fusionspanning C5-C7. Solid fusion of the vertebral bodies is seen. Streakartifact from the surgical hardware is noted. There is normal sagittalalignment. No acute fractures are seen. The craniocervical junction isintact. Mild degenerative changes of the nonfused cervical spine are noted.CT thoracic spine:There is normal thoracic kyphosis and sagittal alignment. The vertebralbody heights are preserved. No acute fractures are seen. Mild multileveldegenerative changes are seen in the form of disc space narrowing andmarginal osteophytes. Flowing anterior osteophytes are noted in the mid tolower thoracic spine. A subacute fracture involving the left posterior 12thrib is seen (2:90). No acute fractures in the left 12th rib were alsoidentified.CT lumbar spine:Mild displaced, subacute fractures seen in the transverse process of L1.These are new since the abnormal CT from 12/21/2019. No other fractures areseen. The vertebral body heights are within normal limits. Milddegenerative changes in the form of disc space narrowing and marginalosteophytes.IMPRESSION1. No acute intracranial findings. Multiple supra and infratentorialchronic infarctions are noted.2. Subacute fractures involving the left posterior-lateral 11th and 12thribs.3. Subacute fractures involving the transverse processes of A7ivlqvktupzf.4. No other fractures identified in the cervical, thoracic and lumbarspine. Multilevel degenerative changes are seen.I, Yo Logan MD., have reviewed this study and agree with the abovereport.[facility] W [id number] 19:14:461. ?Mildly displaced right lateral 10th rib fracture. 2. ?Prominently distended urinary bladder extending to the level of L4-L5.Prostatomegaly. Correlate with patient's symptoms 6 with possibility ofuri nary retention. 3. ?Metallic BB adjacent to the distal metaphysis of the right leftmetacarpal may represent embedded radiopaque object (either chronic oracute). Correlate clinically. 4. ?Technically indeterminate 1.1 cm right upper renal pole lesion. Thiscould be further characterized with multiphasicCT or MRI as clinicallywarranted. 5. ?Additional findings as above.CT ABDOMEN AND PELVIS WITH CONTRAST REASON FOR STUDY: Abdomen-pelvis trauma, moderate, blunt CT TRAUMA PANEL(ASSAULT WITH LOSS OF CONSCIOUSNESS) COMPARISON: 02/22/2019 TECHNIQUE: Multidetector axial CT images from lung bases through proximalthighs after IV administration of nonionic iodinated contrast material.Coronal and sagittal MPR images also generated. INTRAVENOUS CONTRAST ADMINISTRATION (mL Omnipaque 350): 99. Total DLP: 654 mGy*cm FINDINGS: Lower chest: See separately dictated CT chest report for thoracic findings. ABDOMEN AND PELVISLiver: No focal hepatic lesions identified. No evidence of liver injury. Biliary Tract/GB: Physi ologically distended gallbladder without radiopaquecholelithiasis. No pericholecystic free fluid. Nobiliary ductaldilatation. Spleen: Within normal limits. No evidence of splenic injury. Pancreas: No pancreatic ductal dilatation. No pancreatic mass. Adrenals: Within normal limits. Kidneys: Kidneys enhance symmetrically. No hydronephrosis ornephrolithiasis. Technically indeterminate 1.1 cm hypoattenuating lesionwithin the right upper pole measuring approximately 32 Hounsfield units.Few additional cortical hypoattenuating lesions are too small tocharacterize. Bowel: Both small and large bowel appear unremarkable. Normal appendix. Noevidence of bowel injury or mesenteric hematoma. Small hiatal hernia withmild distal esophageal thickening. Mild thickening of the stomach antrumwithout appreciable perigastric stranding or inflammatory change. Peritoneum: Within normal limits. Vasculature: Accessory le ft renal artery. Moderate to moderateatherosclerotic calcifications and soft plaque scattered throughout theabdominal aorta and its branches. No evidence of aortic injury. Mildnarrowing at SMA origin with minimal poststenotic dilatation (18:66-67). Lymph Nodes: Within normal limits. ? Pelvic organs: Few distended urinary bladder extending to the level ofL4-L5. Prostate measures 5.1 cm in transverse dimension at the levelfemoral heads. Abdominal/Pelvic Wall: Small subcutaneous stranding within the right upperquadrant may reflect some bruising. BONES: Subacute to chronic right posterior 8 rib fracture. Acute mildlydisplaced fracture of right lateral 10th rib. Metallic BB adjacent to thedistal metaphysis of the first left metacarpal (along radial side) mayrepresent embeddedradiopaque foreign object (16:22). [facility], Radiant Results Inft User - 02/24/2020 2:15 PM CDTCT ABDOMEN AND PELVIS WITH CONTRASTREASON FOR STUDY: Abdomen-pelvis trauma, moderate, blunt CT TRAUMA PANEL(ASSAULT WITH LOSS OF CONSCIOUSNESS)COMPARISON: 02/22/2019TECHNIQUE: Multidetector axial CT images from lung bases through proximalthighs after IV administration of nonionic iodinated contrast material.Coronal and sagittal MPR images also generated.INTRAVENOUS CONTRAST ADMINISTRATION (mL Omnipaque 350): 99.Total DLP: 654 mGy*cmFINDINGS: Lower chest: See separately dictated CT chest report for thoracic findings.ABDOMEN AND PELVISLiver: No focal hepatic lesions identified. No evidence of liver injury.Biliary Tract/GB: Physiologically distended gallbladder without radiopaquecholelithiasis. No pericholecystic free fluid. No biliary ductaldilatation.Spleen: Within normal limits. No evidence of splenic injury.Pancreas: No pancreatic ductal dilatation. No pancreatic mass.Adrenals: Within normal limits.Kidneys: Kidneys enhance symmetrically. No hydronephrosis ornephrolithiasis. Technically indeterminate 1.1 cm hypoattenuating lesionwithin the right upper pole measuring approximately 32 Hounsfield units.Few additional cortical hypoattenuating lesions are too small tocharacterize.Bowel: Both small and large bowel appear unremarkable. Normal appendix. Noevidence of bowel injury or mesenteric hematoma. Small hiatal hernia withmild distal esophageal thickening. Mild thickening of the stomach antrumwithout appreciable perigastric stranding or inflammatory change.Peritoneum: Within normal limits.Vasculature: Accessory left renal artery. Moderate to moderateatherosclerotic calcifications and soft plaque scattered throughout theabdominal aorta and its branches. No evidence of aortic injury. Mildnarrowing at SMAorigin with minimal poststenotic dilatation (18:66- 67).Lymph Nodes: Within normal limits. Pelvic organs: Few distended urinary bladder extending to the level ofL4-L5. Prostate measures 5.1 cm in transverse dimension at the levelfemoral heads.Abdominal/Pelvic Wall: Small subcutaneous stranding within the right upperquadrant may reflect some bruising.BONES: Subacute to chronic right posterior 8 rib fracture. Acute mildlydisplaced fracture of right lateral 10th rib. Metallic BB adjacent to thedistal metaphysis of the first left metacarpal (along radial side) mayrepresent embedded radiopaque foreign object (16:22).IMPRESSION1. Mildly displaced right lateral 10th rib fracture. 2. Prominently distended urinary bladder extending to the level of L4-L5.Prostatomegaly. Correlate with patient's symptoms 6 with possibility ofurinary retention.3. Metallic BB adjacent to the distal metaphysis of the right leftmetacarpal may represent embedded radiopaque object (either chronic oracute). Correlate clinically.4. Technically indeterminate 1.1 cm right upper renal pole lesion. Thiscould be further characterized with multiphasic CT or MRI as clinicallywarranted.5. Additional findings as above.[facility] VW [id number] 18:39:15 No acute bony abnormality. Preliminary Report Dictated by Resident: Morena Chan MD., have reviewed this study and agree with the abovereport.EXAM: XR SHOULDER <2 VW RIGHT, EXAM: XR HUMERUS 2 VW RIGHT HISTORY: pain s/p fall COMPARISON: None available. FINDINGS: Radiographs of the right shoulder and humerus demonstrate no acute fractureor dislocation. Chronic remodeling of the distal colon suspected. Marginalosteophytosis is noted at the acromioclavicular joint and the humeral head.The soft tissues are unremarkable. [facility], Radiant Results Inft User - 02/24/2020 1:40 PM CDTEXAM: XR SHOULDER <2 VW RIGHT,EXAM: XR HUMERUS 2 VW RIGHTHISTORY: pain s/p fall COMPARISON: None stacy ilable.FINDINGS:Radiographs of the right shoulder and humerus demonstrate no acute fractureor dislocation. Chronic remodeling of the distal colon suspected. Marginalosteophytosis is noted at the acromioclavicular joint and the humeral head.The soft tissues are unremarkable.IMPRESSIONNo acute bony abnor mality.Preliminary Report Dictated by Resident: Morena Harrell MD., have reviewedthis study and agree with the abovereport.[facility] HospitalXR HUMERUS 2 VW [id number] 18:39:15 No acute bony abnormality. Preliminary Report Dictated by Resident: Morena Chan MD., have reviewed this study and agree with the abovereport.EXAM: XR SHOULDER <2 VW RIGHT, EXAM: XR HUMERUS 2 VW RIGHT HISTORY: pain s/p fall COMPARISON: None available. FINDINGS: Radiographs of the right shoulder and humerus demonstrate no acute fractureor dislocation. Chronic remodeling of the distal colon suspected. Marginalosteophytosis is noted at the acromioclavicular joint and the humeral head.The soft tissues are unremarkable. [facility], Radiant Results Inft User - 02/24/2020 1:40 PM CDTEXAM: XR SHOULDER <2 VW RIGHT,EXAM: XR HUMERUS 2 VW RIGHTHISTORY: pain s/p fall COMPARISON: None stacy ilable.FINDINGS:Radiographs of the right shoulder and humerus demonstrate no acute fractureor dislocation. Chronic remodeling of the distal colon suspected. Marginalosteophytosis is noted at the acromioclavicular joint and the humeral head.The soft tissues are unremarkable.IMPRESSIONNo acute bony abnor mality.Preliminary Report Dictated by Resident: Joel Mahmood, Morena Booth MD., have reviewedthis study and agree with the abovereport.[facility] HospitalCT THORAX W [id number] 18:37:29Impression: Right posterolateral 10th and 11th rib fractures.Exam: CT THORAX W CONTRAST Clinical History: Chest trauma, blunt, high energy, initial exam CT TRAUMAPANEL (ASSAULT WITH LOSS OF CONSCIOUSNESS) Comparison: Chest x-ray from January 28, 2020 Findings: The lower neck shows anterior cervical fusion partially. The thyroid issymmetric. No evidence of supra clavicular, mediastinal, hilar, or axillary lymphadenopathy. Conventional branching anatomy of the aortic arch is seen. The pulmonaryartery and its branches appear patent. The cardiac chambers are withinnormal limits. No evidence of pleural or pericardial effusion is seen. No evidence of lung nodules or masses. No evidence of pneumothorax or prema gcontusion. The airways are patent. Right posterolateral 10th and 11th rib fractures (6:97). The visualized upper abdomen is unremarkable. [facility], Radiant Results Inft User - 02/24/2020 1:38 PM CDTExam: CT THORAX W CONTRASTClinical History: Chest trauma, blunt, high energy, initial exam CT TRAUMAPANEL (ASSAULT WITH LOSS OF CONSCIOUSNESS)Comparison: Chest x-ray from January 28, 2020Findings: The lower neckshows anterior cervical fusion partially. The thyroid issymmetric.No evidence of supra clavicular, mediastinal, hilar, or axillarylymphadenopathy.Conventional branching anatomy of the aortic arch is see n. The pulmonaryartery and its branches appear patent. The cardiac chambers are withinnormal limits.No evidence of pleural or pericardial effusion is seen.No evidence of lung nodules or masses. No evidence of pneumothorax or lungcontusion. The airways are patent.Right posterolateral 10th and 11th rib f ractures (6:97).The visualized upper abdomen is unremarkable.IMPRESSIONImpression: Right posterolateral 10th and 11th rib fractures.[facility] HospitalTroponin [id number] 17:10:00 Test Item Value Reference Range Interpretation Comments TROPONIN I (test <0.012 See_Comment [Automated code = 0773837384) message] The system which generated this result transmitted reference range : <=0.034 ng/mL. The reference range was not used to interpr et this result as normal/abnormal . THALIA (test code = Equal or Less than THALIA) 0.034 ng/ml---Normal ?Note: Cardiac troponin begins to rise 3-4 hours after the onset of ischemia. Repeat in 4-6 hours if the sample was drawn within 3-4 hours of the onset of the symptom and found normal. Between 0.035 and 0.120 ng/mL--- Borderline. Questionable myocardial injury or necrosis ? ?Note: Serial measurement may be necessary to confirm or exclude the diagnosis of myocardial injury or necrosis; Clinical correlation (symptoms, EKGs, imaging studies, and others) required; Repeat in 4-6 hours if clinically indicated. ? Equal or Higher than 0.121 ng/mL---Abnormal. Myocardial Injury or Necrosis Likely ? Biotin has been reported to cause a negative bias, interpret results relative to patient's use of biotin. ? Lab Interpretation Normal (test code = 92798-0) [facility] HospitalBasi Metabolic Panel (NA, K, CL, CO2, GLUCOSE, BUN, CREATININE, CA)2020-02-24 16:58:00 Test Item Value Reference Range Interpretation Comments NA (test code = 139 mmol/L 135-145 7897037189) K (test code = 5.5 mmol/L 3.5-5 H 8169052111) CL (test code = 108 mmol/L 98-108 5864642716) CO2 TOTAL (test code = 25 mmol/L 23-31 4326158389) AGAP (test code = 2-16 4129153457) BUN (test code = 42 mg/dL 7-23 H 4030906713) GLUCOSE (test code = 141 mg/dL 70-110 H 4207038292) CREATININE (test code = 2.13 mg/dL 0.6-1.25 H 1368712670) CALCIUM (test code = 9.4 mg/dL 8.6-10.6 7835083104) eGFR Calculation mL/min/1.73m2 (Non-) (test code = 4543077093) eGFR Calculation mL/min/1.73m2 () (test code = 0597139515) THALIA (test code = THALIA) Association of Glomerular Filtration Rate (GFR) and Staging of Kidney Disease* + --+ --+ ------+| GFR (mL/min/1.73 m2) ?| With Kidney Damage ?| ?Without Kidney Damage+ --------+ --------+ +| ?>90 ?| ?Stage one ?| ? Normal ?+ ---+ ---+ -------+| ?60-89 ?| ?Stage two ?| ? Decreased GFR ? + --+ --+ ------+| ?30-59 ?| ?Stage three ?| ? Stage three ? + --+ --+ ------+| ?15-29 ?| ?Stage four ? | ? Stage four ?+ ---+ ---+ -------+| ?<15 (or dialysis) ? ?| ?Stage five ? | ? Stage five ?+ ---+ ---+ -------+ *Each stage assumes the associated GFR level has been in effect for at least three months. ?Stages 1 to 5, with or without kidney disease, indicate chronic kidney disease. Notes: Determination of stages one and two (with eGFR >59mL/min/1.73 m2) requires estimation of kidney damage for at least three months as defined by structural or functional abnormalities of the kidney, manifested by either:Pathological abnormalities or Markers of kidney damage (including abnormalities in the composition of the blood or urine or abnormalities in imaging tests). Lab Interpretation Abnormal (test code = 48298-6) [facility] HospitalHepatic Function Panel (ALB, T.PRO, BILI T, BU/BC, ALT, AST, ALK PHOS)2020-02-24 16:58:00 Test Item Value Reference Range Interpretation Comments TOTAL BILI (test code = 0293936960) 0.8 mg/dL 0.1-1.1 BILI UNCON (test code = 1913933457) 0.9 mg/dL 0.1-1.1 BILI CONJ (test code = 4845067330) 0.0 mg/dL 0-0.3 T PROTEIN (test code = 0087892798) 7.5 g/dL 6.3-8.2 ALBUMIN (test code = 4761217212) 4.2 g/dL 3.5-5 ALK PHOS (test code = 9675108119) 94 U/L 34-122 ALTv (test code = 1742-6) 17 U/L 5-50 AST(SGOT) (test code = 2111323256) 30 U/L 13-40 Lab Interpretation (test code = Normal 18739-6) [facility] HospitalCREATINE [id number] 16:58:00 Test Item Value Reference Range Interpretation Comments CK (test code = 7757162568) 222 U/L 33-194 H Lab Interpretation (test code = Abnormal 68627-8) [facility] HospitalMAGNESIUM2020-05-04 16:58:00 Test Item Value Reference Range Interpretation Comments MAGNESIUM (test code = 6788649643) 2.8 mg/dL 1.7-2.4 H Lab Interpretation (test code = Abnormal 15052-7) [facility] HospitalCORONAVIRUS COVID-19 [id number] 16:36:00 Test Item Value Reference Range Interpretation Comments SARS-CoV-2 (test code = Not Detected Not Detected 27443-6) THALIA (test code = THALIA) ID NOW COVID-19 Assay is an isothermal nucleic acid amplification test intended for the qualitative detection of nucleic acid from SARS-CoV-2 viral RNA in nasopharyngeal (HYPNOTHERAPIST) specimens. It is used under Emergency Use Authorization (EUA) by FDA. The limit of detection (LOD) of the assay is 125 Genome Equivalents/mL. A positive result is indicative of the presence of SARS-CoV-2 RNA. ?Clinical correlation with patient history and other diagnostic information is necessary to determine patient infection status. A negative (Not Detected) result does not preclude SARS-CoV-2 infection. Clinical correlation with patient history and other diagnostic information should be used in patient management decisions. Invalid: Please collect a new specimen for repeat patient testing if clinically indicated. Lab Interpretation Normal (test code = 84144-0) [facility] HospitalProthrombin Time (PT) / [id number] 16:28:00 Test Item Value Reference Range Interpretation Comments PROTIME PATIENT (test See_Comment [Auto mated message] code = 5964-2) The system wh ich generated this result transmitted ref erence range: 12.0 - 1 4.7 Seconds. The re ference range was not u sed to interpret this result as normal/abnor mal. INR (test code = 6301-6) Nor mal INR <1.1; Warfarin Therap eutic range 2.0 to 3. 0 or 2.5 to 3.5, dep ending upon the indica tions. Lab Interpretation (test Normal code = 29983-3) [facility] HospitalaPTT2020-05-04 16:26:00 Test Item Value Reference Range Interpretation Comments APTT Patient (test See_Comment [Automat ed code = 3173-2) message] The system which generated this result transmitted reference range : 23 - 38 Seconds . The reference range was not used to interpr et this result as normal/abnormal . THALIA (test code = THALIA) The [facility] patient population mean normal value for aPTT is 30 seconds. Lab Interpretation Normal (test code = 86509-0) [facility] HospitalURINALYSIS2020-05-04 16:22:00 Test Item Value Reference Range Interpretation Comments APPEARANCE (test code = Clear Clear 9906727471) COLOR (test code = Yellow Yellow 3796525603) PH (test code = 4.8-8.0 3366127810) SP GRAVITY (test code = 1.003-1.030 3394995508) GLU U QUAL (test code = Normal Normal 8771243778) BLOOD (test code = Negative Negative 4356760607) KETONES (test code = Negative Negative 4409213008) PROTEIN (test code = 100 mg/dL Negative A 2887-8) UROBILIN (test code = Normal Normal 0111853724) BILIRUBIN (test code = Negative Negative 4568406466) NITRITE (test code = Negative Negative 9428727922) LEUK LONNY (test code = Negative Negative 6392486318) RBC/HPF (test code = See_Comment [Autom ated message] 0846652284) The system [employer] generated this result transmit velasquez reference range : 0 - 3 HPF. The refe rence range was not u sed to interpret th is result as normal/abnormal . WBC/HPF (test code = See_Comment [Autom ated message] 8628952611) The system [employer] generated this result transmit velasquez reference range : 0 - 5 HPF. The refe rence range was not u sed to interpret th is result as normal/abnormal . BACTERIA (test code = Few Negative A 5675030436) SQ EPITH (test code = <1 HPF 1123362917) HYAL CAST (test code = See_Comment [Aut omated message] 7878277860) The system [employer] generated this result transmit velasquez reference range : <=2 LPF. The refere nce range was not u sed to interpret th is result as normal/abnormal . Lab Interpretation (test Abnormal code = 97771-0) [facility] WITH [id number] 16:14:00 Test Item Value Reference Range Interpretation Comments WBC (test code = See_Comment [Automated 6690-2) message] The sy stem which generated this result transmitted reference range : 4.20 - 10.70 10*3/?L. The reference range was not used to interpret this result as normal/abnormal . RBC (test code = See_Comment L [Automated 789-8) message] The sy stem which generated this result transmitted reference range : 4.26 - 5.52 10*6/?L. The reference range was not used to interpret this result as normal/abnormal . HGB (test code = 12.5 g/dL 12.2-16.4 718-7) HCT (test code = 37.9 % 38.4-49.3 L 4544-3) MCV (test code = 92.7 fL 81.7-95.6 787-2) MCH (test code = 30.6 pg 26.1-32.7 785-6) MCHC (test code = 33.0 g/dL 31.2-35 786-4) RDW-SD (test code = 42.5 fL 38.5-51.6 03832-1) RDW-CV (test code = 12.5 % 12.1-15.4 788-0) PLT (test code = See_Comment [Automated 777-3) message] The sy stem which generated this result transmitted reference range : 150 - 328 10*3/ ?L. The reference r darin was not used to interpret this result as normal/abnormal . MPV (test code = 10.7 fL 9.8-13 51995-4) NRBC/100 WBC (test See_Comment [Automat ed code = 2397284369) message] The system which generated this result transmitted reference range : 0.0 - 10.0 /100 WBCs. The refer ence range was not u sed to interpret th is result as normal/abnormal . NRBC x10^3 (test code <0.01 See_Comment [Auto mated = 2563867172) message] The s ystem which generated this result transmitted reference range : 10*3/?L. The reference range was not used to interpret this result as normal/abnormal . GRAN MAT (NEUT) % 58.3 % (test code = 770-8) IMM GRAN % (test code 0.40 % = 2431117917) LYMPH % (test code = 29.6 % 736-9) MONO % (test code = 9.0 % 5905-5) EOS % (test code = 2.1 % 713-8) BASO % (test code = 0.6 % 706-2) GRAN MAT x10^3(ANC) 4.75 10*3/uL 1.99-6.95 (test code = 1933671165) IMM GRAN x10^3 (test 0.03 10*3/uL 0-0.06 code = 5104984605) LYMPH x10^3 (test code 2.41 10*3/uL 1.09-3.23 = 731-0) MONO x10^3 (test code 0.73 10*3/uL 0.36-1.02 = 742-7) EOS x10^3 (test code = 0.17 10*3/uL 0.06-0.53 711-2) BASO x10^3 (test code 0.05 10*3/uL 0.01-0.09 = 704-7) Lab Interpretation Abnormal (test code = 70646-6) [facility] Metabolic Panel (NA, K, CL, CO2, GLUCOSE, BUN, CREATININE, CA)2020-01-31 08:54:00 Test Item Value Reference Range Interpretation Comments NA (test code = 141 mmol/L 135-145 4155565154) K (test code = 4.3 mmol/L 3.5-5 3482236926) CL (test code = 111 mmol/L 98-108 H 7005896449) CO2 TOTAL (test code = 24 mmol/L 23-31 5108401521) AGAP (test code = 2-16 3257813048) BUN (test code = 17 mg/dL 7-23 1900493460) GLUCOSE (test code = 163 mg/dL 70-110 H 8187360982) CREATININE (test code = 1.19 mg/dL 0.6-1.25 7924763872) CALCIUM (test code = 9.1 mg/dL 8.6-10.6 9666098379) eGFR Calculation mL/min/1.73m2 (Non-) (test code = 1964089192) eGFR Calculation mL/min/1.73m2 () (test code = 6494401863) THALIA (test code = THALIA) Association of Glomerular Filtration Rate (GFR) and Staging of Kidney Disease* + --+ --+ ------+| GFR (mL/min/1.73 m2) ?| With Kidney Damage ?| ?Without Kidney Damage+ --------+ --------+ +| ?>90 ?| ?Stage one ?| ? Normal ?+ ---+ ---+ -------+| ?60-89 ?| ?Stage two ?| ? Decreased GFR ? + --+ --+ ------+| ?30-59 ?| ?Stage three ?| ? Stage three ? + --+ --+ ------+| ?15-29 ?| ?Stage four ? | ? Stage four ?+ ---+ ---+ -------+| ?<15 (or dialysis) ? ?| ?Stage five ? | ? Stage five ?+ ---+ ---+ -------+ *Each stage assumes the associated GFR level has been in effect for at least three months. ?Stages 1 to 5, with or without kidney disease, indicate chronic kidney disease. Notes: Determination of stages one and two (with eGFR >59mL/min/1.73 m2) requires estimation of kidney damage for at least three months as defined by structural or functional abnormalities of the kidney, manifested by either:Pathological abnormalities or Markers of kidney damage (including abnormalities in the composition of the blood or urine or abnormalities in imaging tests). Lab Interpretation Abnormal (test code = 47703-2) [facility] WITH [id number] 08:18:00 Test Item Value Reference Range Interpretation Comments WBC (test code = See_Comment [Automated 6690-2) message] The sy stem which generated this result transmitted reference range : 4.20 - 10.70 10*3/?L. The reference range was not used to interpret this result as normal/abnormal . RBC (test code = See_Comment L [Automated 789-8) message] The sy stem which generated this result transmitted reference range : 4.26 - 5.52 10*6/?L. The reference range was not used to interpret this result as normal/abnormal . HGB (test code = 11.7 g/dL 12.2-16.4 L 718-7) HCT (test code = 33.0 % 38.4-49.3 L 4544-3) MCV (test code = 88.9 fL 81.7-95.6 787-2) MCH (test code = 31.5 pg 26.1-32.7 785-6) MCHC (test code = 35.5 g/dL 31.2-35 H 786-4) RDW-SD (test code = 37.8 fL 38.5-51.6 L 68962-3) RDW-CV (test code = 11.8 % 12.1-15.4 L 788-0) PLT (test code = See_Comment [Automated 777-3) message] The sy stem which generated this result transmitted reference range : 150 - 328 10*3/ ?L. The reference r darin was not used to interpret this result as normal/abnormal . MPV (test code = 11.3 fL 9.8-13 22839-0) NRBC/100 WBC (test See_Comment [Automat ed code = 4468939922) message] The system which generated this result transmitted reference range : 0.0 - 10.0 /100 WBCs. The refer ence range was not u sed to interpret th is result as normal/abnormal . NRBC x10^3 (test code <0.01 See_Comment [Auto mated = 1249582632) message] The s ystem which generated this result transmitted reference range : 10*3/?L. The reference range was not used to interpret this result as normal/abnormal . GRAN MAT (NEUT) % 55.8 % (test code = 770-8) IMM GRAN % (test code 0.20 % = 8976027021) LYMPH % (test code = 34.8 % 736-9) MONO % (test code = 5.8 % 5905-5) EOS % (test code = 2.7 % 713-8) BASO % (test code = 0.7 % 706-2) GRAN MAT x10^3(ANC) 3.27 10*3/uL 1.99-6.95 (test code = 0840068912) IMM GRAN x10^3 (test <0.03 0-0.06 code = 4754725600) LYMPH x10^3 (test code 2.04 10*3/uL 1.09-3.23 = 731-0) MONO x10^3 (test code 0.34 10*3/uL 0.36-1.02 L = 742-7) EOS x10^3 (test code = 0.16 10*3/uL 0.06-0.53 711-2) BASO x10^3 (test code 0.04 10*3/uL 0.01-0.09 = 704-7) Lab Interpretation Abnormal (test code = 64825-4) [facility] Metabolic Panel (NA, K, CL, CO2, GLUCOSE, BUN, CREATININE, CA)2020-01-30 09:24:00 Test Item Value Reference Range Interpretation Comments NA (test code = 140 mmol/L 135-145 2892379435) K (test code = 4.7 mmol/L 3.5-5 1054431546) CL (test code = 112 mmol/L 98-108 H 1036351418) CO2 TOTAL (test code = 23 mmol/L 23-31 8076322511) AGAP (test code = 2-16 8767713711) BUN (test code = 26 mg/dL 7-23 H 7959114332) GLUCOSE (test code = 163 mg/dL 70-110 H 2835387063) CREATININE (test code = 1.74 mg/dL 0.6-1.25 H 2912704874) CALCIUM (test code = 8.3 mg/dL 8.6-10.6 L 7419854950) eGFR Calculation mL/min/1.73m2 (Non-) (test code = 3755717548) eGFR Calculation mL/min/1.73m2 () (test code = 0478498975) THALIA (test code = THALIA) Association of Glomerular Filtration Rate (GFR) and Staging of Kidney Disease* + --+ --+ ------+| GFR (mL/min/1.73 m2) ?| With Kidney Damage ?| ?Without Kidney Damage+ --------+ --------+ +| ?>90 ?| ?Stage one ?| ? Normal ?+ ---+ ---+ -------+| ?60-89 ?| ?Stage two ?| ? Decreased GFR ? + --+ --+ ------+| ?30-59 ?| ?Stage three ?| ? Stage three ? + --+ --+ ------+| ?15-29 ?| ?Stage four ? | ? Stage four ?+ ---+ ---+ -------+| ?<15 (or dialysis) ? ?| ?Stage five ? | ? Stage five ?+ ---+ ---+ -------+ *Each stage assumes the associated GFR level has been in effect for at least three months. ?Stages 1 to 5, with or without kidney disease, indicate chronic kidney disease. Notes: Determination of stages one and two (with eGFR >59mL/min/1.73 m2) requires estimation of kidney damage for at least three months as defined by structural or functional abnormalities of the kidney, manifested by either:Pathological abnormalities or Markers of kidney damage (including abnormalities in the composition of the blood or urine or abnormalities in imaging tests). Lab Interpretation Abnormal (test code = 40982-2) [facility] WITH [id number] 09:10:00 Test Item Value Reference Range Interpretation Comments WBC (test code = See_Comment [Automated 4990-2) message] The sy stem which generated this result transmitted reference range : 4.20 - 10.70 10*3/?L. The reference range was not used to interpret this result as normal/abnormal . RBC (test code = See_Comment L [Automated 789-8) message] The sy stem which generated this result transmitted reference range : 4.26 - 5.52 10*6/?L. The reference range was not used to interpret this result as normal/abnormal . HGB (test code = 10.8 g/dL 12.2-16.4 L 718-7) HCT (test code = 31.8 % 38.4-49.3 L 4544-3) MCV (test code = 91.4 fL 81.7-95.6 787-2) MCH (test code = 31.0 pg 26.1-32.7 785-6) MCHC (test code = 34.0 g/dL 31.2-35 786-4) RDW-SD (test code = 39.7 fL 38.5-51.6 52093-5) RDW-CV (test code = 11.8 % 12.1-15.4 L 788-0) PLT (test code = See_Comment [Automated 777-3) message] The sy stem which generated this result transmitted reference range : 150 - 328 10*3/ ?L. The reference r darin was not used to interpret this result as normal/abnormal . MPV (test code = 11.5 fL 9.8-13 58322-1) NRBC/100 WBC (test See_Comment [Automat ed code = 2451786362) message] The system which generated this result transmitted reference range : 0.0 - 10.0 /100 WBCs. The refer ence range was not u sed to interpret th is result as normal/abnormal . NRBC x10^3 (test code <0.01 See_Comment [Auto mated = 8161093900) message] The s ystem which generated this result transmitted reference range : 10*3/?L. The reference range was not used to interpret this result as normal/abnormal . GRAN MAT (NEUT) % 46.2 % (test code = 770-8) IMM GRAN % (test code 0.20 % = 8085056927) LYMPH % (test code = 42.1 % 736-9) MONO % (test code = 8.1 % 5905-5) EOS % (test code = 2.9 % 713-8) BASO % (test code = 0.5 % 706-2) GRAN MAT x10^3(ANC) 3.02 10*3/uL 1.99-6.95 (test code = 9887432448) IMM GRAN x10^3 (test <0.03 0-0.06 code = 8072464474) LYMPH x10^3 (test code 2.75 10*3/uL 1.09-3.23 = 731-0) MONO x10^3 (test code 0.53 10*3/uL 0.36-1.02 = 742-7) EOS x10^3 (test code = 0.19 10*3/uL 0.06-0.53 711-2) BASO x10^3 (test code 0.03 10*3/uL 0.01-0.09 = 704-7) Lab Interpretation Abnormal (test code = 17351-9) [facility] RETROPERITONEAL [id number] 13:41:39 HISTORY: Acute renal failure. TECHNIQUE: Both kidneys are evaluated in multiple planes with the patientin different positions. FINDINGS: Comparison has been made with previous ultrasound study of12/27/2019. Both kidneys appear to be of normal size and shape with no hydronephrosis,perinephric fluid collection detected. Right kidney is 11.1 x 6.0 x 5.2 cmin size and left kidney 12.2 x 6.9 x 4.9 cm in size. Cortex of both kidneysappear slightly echogenic with thickness ranging between 14 and and 17 mm. Color Doppler images showed normal arterial and venous flow to bothkidneys. Oval-shaped 10 x 5 mm cystnoted in the lateral cortex of rightkidney. CONCLUSIONS: Unremarkable bilateral renal ultrasound stud y for any acutefindings.[facility], Radiant Results Inft User - 01/29/2020 8:42 AM CDTHISTORY: Acute renalfailure.TECHNIQUE: Both kidneys are evaluated in multiple planes with the patientin different positions. FINDINGS: Comparison has been made with previous ultrasound study of12/27/2019.Both kidneys appearto be of normal size and shape with no hydronephrosis,perinephric fluid collection detected. Right kidney is 11.1 x 6.0 x 5.2 cmin size and left kidney 12.2 x 6.9 x 4.9 cm in size. Cortex of both kidneysappear slightly echogenic with thickness ranging between 14 and and 17 mm. Color Doppler images showed normal arterial and venous flow to bothkidneys. Oval-shaped 10 x 5 mm cyst noted in the lateral cortex of rightkidney.CONCLUSIONS: Unremarkable bilateral renal ultrasound study for any acutefindings.[facility] HospitalTHYROID STIMULATING [id number] 11:34:00 Test Item Value Reference Range Interpretation Comments TSH (test code = See_Comment Biotin has been 7709911197) reported to cau se a negative bias, interpret resul ts relative to pat charisma's use of biotin. [Automated mess age] The system [employer] generated this result transmitted ref erence range: 0.45 - 4 .70 mIU/L. The refe rence range was not u sed to interpret this result as normal/abnor mal. Lab Interpretation (test Normal code = 44429-7) [facility] HospitalAMMONIA, [id number] 11:16:00 Test Item Value Reference Range Interpretation Comments AMMONIA (test code = 7867978245) 12 umol/L 9-33 Lab Interpretation (test code = Normal 29818-6) [facility] HospitalLactic Acid Whole [id number] 05:31:00 Test Item Value Reference Range Interpretation Comments LACTIC ACID (test code = 1.19 mmol/L 0.5-2.2 7572029269) Lab Interpretation (test code = Normal 40890-4) [facility] HospitalURINALYSIS2020-04-08 05:23:00 Test Item Value Reference Range Interpretation Comments APPEARANCE (test code = Clear Clear 8598352257) COLOR (test code = Yellow Yellow 9472372210) PH (test code = 4.8-8.0 5178682542) SP GRAVITY (test code = 1.003-1.030 8737686015) GLU U QUAL (test code = 50 mg/dL Normal A 8846298599) BLOOD (test code = 1+ Negative A 7336864043) KETONES (test code = 5 mg/dL Negative A 3015803120) PROTEIN (test code = 100 mg/dL Negative A 2887-8) UROBILIN (test code = Normal Normal 8368976192) BILIRUBIN (test code = Negative Negative 1190644915) NITRITE (test code = Negative Negative 0693659407) LEUK LONNY (test code = Negative Negative 7131499451) RBC/HPF (test code = See_Comment H [Autom ated message] 5086015306) The system [employer] generated this result transmit velasquez reference range : 0 - 3 HPF. The refe rence range was not u sed to interpret th is result as normal/abnormal . WBC/HPF (test code = See_Comment [Autom ated message] 1657417615) The system [employer] generated this result transmit velasquez reference range : 0 - 5 HPF. The refe rence range was not u sed to interpret th is result as normal/abnormal . BACTERIA (test code = Few Negative A 2755404967) MUCOUS (test code = Slight Negative LPF A 6947619507) AMORPHOUS (test code = Moderate Rare HPF A 0505068925) HYAL CAST (test code = See_Comment H [Aut omated message] 2082602594) The system [employer] generated this result transmit velasquez reference range : <=2 LPF. The refere nce range was not u sed to interpret th is result as normal/abnormal . Lab Interpretation (test Abnormal code = 52326-1) [facility] HospitalCREATINE [id number] 04:13:00 Test Item Value Reference Range Interpretation Comments CK (test code = 8497268673) 43 U/L 33-194 Lab Interpretation (test code = Normal 82569-7) [facility] HospitalTROPONIN [id number] 03:26:00 Test Item Value Reference Range Interpretation Comments TROPONIN I (test <0.012 See_Comment [Automated code = 3508798242) message] The system which generated this result transmitted reference range : <=0.034 ng/mL. The reference range was not used to interpr et this result as normal/abnormal . THALIA (test code = Equal or Less than THALIA) 0.034 ng/ml---Normal ?Note: Cardiac troponin begins to rise 3-4 hours after the onset of ischemia. Repeat in 4-6 hours if the sample was drawn within 3-4 hours of the onset of the symptom and found normal. Between 0.035 and 0.120 ng/mL--- Borderline. Questionable myocardial injury or necrosis ? ?Note: Serial measurement may be necessary to confirm or exclude the diagnosis of myocardial injury or necrosis; Clinical correlation (symptoms, EKGs, imaging studies, and others) required; Repeat in 4-6 hours if clinically indicated. ? Equal or Higher than 0.121 ng/mL---Abnormal. Myocardial Injury or Necrosis Likely ? Biotin has been reported to cause a negative bias, interpret results relative to patient's use of biotin. ? Lab Interpretation Normal (test code = 20037-0) [facility] HospitalCORONAVIRUS COVID-19 [id number] 03:18:00 Test Item Value Reference Range Interpretation Comments SARS-CoV-2 (test code = Not Detected Not Detected 88365-3) THALIA (test code = THALIA) ID NOW COVID-19 Assay is an isothermal nucleic acid amplification test intended for the qualitative detection of nucleic acid from SARS-CoV-2 viral RNA in nasopharyngeal (HYPNOTHERAPIST) specimens. It is used under Emergency Use Authorization (EUA) by FDA. The limit of detection (LOD) of the assay is 125 Genome Equivalents/mL. A positive result is indicative of the presence of SARS-CoV-2 RNA. ?Clinical correlation with patient history and other diagnostic information is necessary to determine patient infection status. A negative (Not Detected) result does not preclude SARS-CoV-2 infection and should not be used as the sole basis for patient management decisions. ? Invalid: Please collect a new specimen for repeat patient testing if clinically indicated. Lab Interpretation Normal (test code = 86653-4) [facility] HospitalETHANOL2020-04-08 03:16:00 Test Item Value Reference Range Interpretation Comments ALCOHOL (test code = <10 mg/dL 6486308376) THALIA (test code = THALIA) <10 Kzsxvtbv25-505 Toxic>100 Depression of BUILDING COORDINATOR>400 Fatalities Reported [facility] HospitalCOMP. METABOLIC PANEL (77869)2020-01-29 03:14:00 Test Item Value Reference Range Interpretation Comments NA (test code = 142 mmol/L 135-145 6479039913) K (test code = 4.4 mmol/L 3.5-5 4991626320) CL (test code = 108 mmol/L 98-108 5403067932) CO2 TOTAL (test code = 24 mmol/L 23-31 0504197983) AGAP (test code = 2-16 8662202035) BUN (test code = 25 mg/dL 7-23 H 9441944961) GLUCOSE (test code = 210 mg/dL 70-110 H 9995423922) CREATININE (test code = 2.32 mg/dL 0.6-1.25 H 5546536871) TOTAL BILI (test code = 0.3 mg/dL 0.1-1.6 8083587407) CALCIUM (test code = 9.2 mg/dL 8.6-10.6 5936142815) T PROTEIN (test code = 7.0 g/dL 6.3-8.2 1192378762) ALBUMIN (test code = 4.2 g/dL 3.5-5 7744586625) ALK PHOS (test code = 86 U/L 34-122 6695305592) ALTv (test code = 12 U/L 5-50 1742-6) AST(SGOT) (test code = 19 U/L 13-40 3396522224) eGFR Calculation mL/min/1.73m2 (Non-) (test code = 3970450571) eGFR Calculation mL/min/1.73m2 () (test code = 5737002222) THALIA (test code = THALIA) Association of Glomerular Filtration Rate (GFR) and Staging of Kidney Disease* + --+ --+ ------+| GFR (mL/min/1.73 m2) ?| With Kidney Damage ?| ?Without Kidney Damage+ --------+ --------+ +| ?>90 ?| ?Stage one ?| ? Normal ?+ ---+ ---+ -------+| ?60-89 ?| ?Stage two ?| ? Decreased GFR ? + --+ --+ ------+| ?30-59 ?| ?Stage three ?| ? Stage three ? + --+ --+ ------+| ?15-29 ?| ?Stage four ? | ? Stage four ?+ ---+ ---+ -------+| ?<15 (or dialysis) ? ?| ?Stage five ? | ? Stage five ?+ ---+ ---+ -------+ *Each stage assumes the associated GFR level has been in effect for at least three months. ?Stages 1 to 5, with or without kidney disease, indicate chronic kidney disease. Notes: Determination of stages one and two (with eGFR >59mL/min/1.73 m2) requires estimation of kidney damage for at least three months as defined by structural or functional abnormalities of the kidney, manifested by either:Pathological abnormalities or Markers of kidney damage (including abnormalities in the composition of the blood or urine or abnormalities in imaging tests). Lab Interpretation Abnormal (test code = 70372-5) [facility] HospitalCT HEAD WO [id number] 03:10:53 No acute intracranial abnormality. Multiple remote infarcts, as detailed above.EXAM: CT HEAD WO CONTRAST HISTORY: Altered mental status (AMS), unclear cause TECHNIQUE: CT of the head was performed without intravenous contrast.Sagittal and coronal reformats were generated. COMPARISON: Multiple prior CTs of the head, the most recent dated 12/27/2019. FINDINGS: The ventricles and sulci are prominent suggestive of mild degree of globalcerebral volume loss. No hydrocephalus, midline shift or pathologicalextra-axial fluid collection. Large area of encephalomalacia is noted in the left temporo-occipital lobelikely represents remote MARINE DIESEL MECHANIC territory infarct. Hypodensities are alsonoted in the left cerebellar hemisphere, right hemipons, bilateral coronaradiata and bilateral basal ganglia likely represent remote lacunarinfarcts. No intracranial hemorrhage or significant mass effect. The costello-whitematter differentiation is a preserved. The paranasal sinuses and mastoid air cells are clear. The calvarium and skull base are unremarkable. [facility], Radiant Results Inft User - 01/28/2020 10:12 PM CDTEXAM: CT HEAD WOCONTRASTHISTORY: Altered mental status (AMS), unclear cause TECHNIQUE: CT of the head was performed without intravenous contrast.Sagittal and coronal reformats were generated.COMPARISON: Multiple priorCTs of the head, the most recent dated 12/27/2019.FINDINGS: The ventricles and sulci are prominent suggestive of mild degree of globalcerebral volume loss. No hydrocephalus, midline shift or pathologicalextra-axial fluid collection.Large area of encephalomalacia is noted in the left temporo-occipital lobelikely represents remote MARINE DIESEL MECHANIC territory infarct. Hypodensities are alsonoted in the left cerebellar hemisphere, right hemipons, bilateral coronaradiata and bilateral basal ganglia likely represent remote lacunarinfarcts.No intracranial hemorrhage or significant mass effect. The costello-whitematter differentiation is a preserved.The paranasal sinuses and mastoid air cells are clear.The calvarium and skull base are unremarkable.IMPRESSIONNo acute intracranial abnormality.Multiple remote infarcts, as detailed above.[facility] HospitalXR CHEST 1 [id number] 03:10:33 No acute intrathoracic abnormality.PROCEDURE: XR CHEST 1 VW CLINICAL INDICATION: altered mental status COMPARISON: 12/27/2019 FINDINGS: The lungs are partial expanded and clear. No significant differencecompared to prior exam.No pleural effusion or pneumothorax is seen. The cardiomediastinal silhouetteis normal. No acute bony abnormality. Lower cervical ACDF noted, stable. [facility], Radiant Results Inft User - 01/28/2020 10:11 PM CDTPROCEDURE: XR CHEST 1 VWCLINICAL INDICATION: altered mental status COMPARISON: 12/27/2019FINDINGS:The lungs are partial expanded and clear. No significant differencecompared to prior exam.No pleural effusion or pneumothorax is seen. The cardiomediastinal silhouette is normal. No acute bony abnormality. Lower cervical ACDF noted, stable.IMPRESSIONNo acute intrathoracic abnormality. [facility] HospitalCBC WITH [id number] 02:59:00 Test Item Value Reference Range Interpretation Comments WBC (test code = See_Comment [Automated 3235-2) message] The sy stem which generated this result transmitted reference range : 4.20 - 10.70 10*3/?L. The reference range was not used to interpret this result as normal/abnormal . RBC (test code = See_Comment L [Automated 749-8) message] The sy stem which generated this result transmitted reference range : 4.26 - 5.52 10*6/?L. The reference range was not used to interpret this result as normal/abnormal . HGB (test code = 12.6 g/dL 12.2-16.4 718-7) HCT (test code = 36.7 % 38.4-49.3 L 4544-3) MCV (test code = 90.6 fL 81.7-95.6 787-2) MCH (test code = 31.1 pg 26.1-32.7 785-6) MCHC (test code = 34.3 g/dL 31.2-35 786-4) RDW-SD (test code = 40.1 fL 38.5-51.6 81118-8) RDW-CV (test code = 12.2 % 12.1-15.4 788-0) PLT (test code = See_Comment [Automated 777-3) message] The sy stem which generated this result transmitted reference range : 150 - 328 10*3/ ?L. The reference r darin was not used to interpret this result as normal/abnormal . MPV (test code = 11.3 fL 9.8-13 84742-8) NRBC/100 WBC (test See_Comment [Automat ed code = 3993912567) message] The system which generated this result transmitted reference range : 0.0 - 10.0 /100 WBCs. The refer ence range was not u sed to interpret th is result as normal/abnormal . NRBC x10^3 (test code <0.01 See_Comment [Auto mated = 0293552355) message] The s ystem which generated this result transmitted reference range : 10*3/?L. The reference range was not used to interpret this result as normal/abnormal . GRAN MAT (NEUT) % 53.0 % (test code = 770-8) IMM GRAN % (test code 0.20 % = 7151656366) LYMPH % (test code = 37.7 % 736-9) MONO % (test code = 6.5 % 5905-5) EOS % (test code = 2.0 % 713-8) BASO % (test code = 0.6 % 706-2) GRAN MAT x10^3(ANC) 5.19 10*3/uL 1.99-6.95 (test code = 9349189039) IMM GRAN x10^3 (test <0.03 0-0.06 code = 9176210422) LYMPH x10^3 (test code 3.69 10*3/uL 1.09-3.23 H = 731-0) MONO x10^3 (test code 0.64 10*3/uL 0.36-1.02 = 742-7) EOS x10^3 (test code = 0.20 10*3/uL 0.06-0.53 711-2) BASO x10^3 (test code 0.06 10*3/uL 0.01-0.09 = 704-7) Lab Interpretation Abnormal (test code = 90668-9) [facility] HospitalLailic Acid Whole [id number] 02:58:00 Test Item Value Reference Range Interpretation Comments LACTIC ACID (test code = 2.50 mmol/L 0.5-2.2 H 2309203428) Lab Interpretation (test code = Abnormal 31992-2) [facility] GLUCOSE (AUTOMATED)2019-12-30 16:34:00 Test Item Value Reference Range Interpretation Comments POCT GLU (test code = 6655058111) 299 mg/dL 70-110 H Lab Interpretation (test code = Abnormal 90819-4) [facility] GLUCOSE (AUTOMATED)2019-12-30 12:39:00 Test Item Value Reference Range Interpretation Comments POCT GLU (test code = 9988313329) 124 mg/dL 70-110 H Lab Interpretation (test code = Abnormal 36943-3) [facility] (NA, K, CL, CO2, GLUCOSE, BUN, CREATININE, CA)2019-12-30 11:39:00 Test Item Value Reference Range Interpretation Comments NA (test code = 141 mmol/L 135-145 1901030819) K (test code = 3.7 mmol/L 3.5-5 3409200622) CL (test code = 113 mmol/L 98-108 H 4352017522) CO2 TOTAL (test code = 25 mmol/L 23-31 1861738698) AGAP (test code = 2-16 6185470963) BUN (test code = 15 mg/dL 7-23 4947721978) GLUCOSE (test code = 147 mg/dL 70-110 H 5268954282) CREATININE (test code = 1.29 mg/dL 0.6-1.25 H 0989540114) CALCIUM (test code = 9.1 mg/dL 8.6-10.6 6851928856) eGFR Calculation mL/min/1.73m2 (Non-) (test code = 0186056589) eGFR Calculation mL/min/1.73m2 () (test code = 5538814242) THALIA (test code = THALIA) Association of Glomerular Filtration Rate (GFR) and Staging of Kidney Disease* + --+ --+ ------+| GFR (mL/min/1.73 m2) ?| With Kidney Damage ?| ?Without Kidney Damage+ --------+ --------+ +| ?>90 ?| ?Stage one ?| ? Normal ?+ ---+ ---+ -------+| ?60-89 ?| ?Stage two ?| ? Decreased GFR ? + --+ --+ ------+| ?30-59 ?| ?Stage three ?| ? Stage three ? + --+ --+ ------+| ?15-29 ?| ?Stage four ? | ? Stage four ?+ ---+ ---+ -------+| ?<15 (or dialysis) ? ?| ?Stage five ? | ? Stage five ?+ ---+ ---+ -------+ *Each stage assumes the associated GFR level has been in effect for at least three months. ?Stages 1 to 5, with or without kidney disease, indicate chronic kidney disease. Notes: Determination of stages one and two (with eGFR >59mL/min/1.73 m2) requires estimation of kidney damage for at least three months as defined by structural or functional abnormalities of the kidney, manifested by either:Pathological abnormalities or Markers of kidney damage (including abnormalities in the composition of the blood or urine or abnormalities in imaging tests). Lab Interpretation Abnormal (test code = 23107-4) [facility] GLUCOSE (AUTOMATED)2019-12-30 07:09:00 Test Item Value Reference Range Interpretation Comments POCT GLU (test code = 6667645278) 193 mg/dL 70-110 H Lab Interpretation (test code = Abnormal 90898-3) [facility] GLUCOSE (AUTOMATED)2019-12-29 17:41:00 Test Item Value Reference Range Interpretation Comments POCT GLU (test code = 9161549250) 142 mg/dL 70-110 H Lab Interpretation (test code = Abnormal 24292-2) [facility] HospitalINTACT PTH CALCIUM [id number] 16:22:00 Test Item Value Reference Range Interpretation Comments CALCIUM (test code = 9.2 mg/dL 8.6-10.6 0463711525) PTH-INTACT (test code = 44.3 pg/mL 7999 5307464195) PTH-CA Interpretation PTH IS Appropriate (test code = for Calcium 2361606055) [facility] HospitalPOCT GLUCOSE (AUTOMATED)2019-12-29 12:20:00 Test Item Value Reference Range Interpretation Comments POCT GLU (test code = 8255526324) 172 mg/dL 70-110 H Lab Interpretation (test code = Abnormal 06153-6) [facility] HospitalURINE [id number] 12:20:00 Test Item Value Reference Range Interpretation Comments URINE CULTURE (test No aerobic growth (< code = 630-4) 1000 CFU/mL) [facility] HospitalCB WITH [id number] 11:10:00 Test Item Value Reference Range Interpretation Comments WBC (test code = See_Comment [Automated 7690-2) message] The sy stem which generated this result transmitted reference range : 4.20 - 10.70 10*3/?L. The reference range was not used to interpret this result as normal/abnormal . RBC (test code = See_Comment L [Automated 789-8) message] The sy stem which generated this result transmitted reference range : 4.26 - 5.52 10*6/?L. The reference range was not used to interpret this result as normal/abnormal . HGB (test code = 12.0 g/dL 12.2-16.4 L 718-7) HCT (test code = 34.9 % 38.4-49.3 L 4544-3) MCV (test code = 90.4 fL 81.7-95.6 787-2) MCH (test code = 31.1 pg 26.1-32.7 785-6) MCHC (test code = 34.4 g/dL 31.2-35 786-4) RDW-SD (test code = 40.3 fL 38.5-51.6 34418-5) RDW-CV (test code = 12.2 % 12.1-15.4 788-0) PLT (test code = See_Comment [Automated 777-3) message] The sy stem which generated this result transmitted reference range : 150 - 328 10*3/ ?L. The reference r darin was not used to interpret this result as normal/abnormal . MPV (test code = 11.7 fL 9.8-13 05050-6) NRBC/100 WBC (test See_Comment [Automat ed code = 3242914804) message] The system which generated this result transmitted reference range : 0.0 - 10.0 /100 WBCs. The refer ence range was not u sed to interpret th is result as normal/abnormal . NRBC x10^3 (test code <0.01 See_Comment [Auto mated = 0793176613) message] The s ystem which generated this result transmitted reference range : 10*3/?L. The reference range was not used to interpret this result as normal/abnormal . GRAN MAT (NEUT) % 58.9 % (test code = 770-8) IMM GRAN % (test code 0.40 % = 5355124024) LYMPH % (test code = 31.3 % 736-9) MONO % (test code = 7.0 % 5905-5) EOS % (test code = 1.8 % 713-8) BASO % (test code = 0.6 % 706-2) GRAN MAT x10^3(ANC) 4.80 10*3/uL 1.99-6.95 (test code = 5320830330) IMM GRAN x10^3 (test 0.03 10*3/uL 0-0.06 code = 1378170800) LYMPH x10^3 (test code 2.55 10*3/uL 1.09-3.23 = 731-0) MONO x10^3 (test code 0.57 10*3/uL 0.36-1.02 = 742-7) EOS x10^3 (test code = 0.15 10*3/uL 0.06-0.53 711-2) BASO x10^3 (test code 0.05 10*3/uL 0.01-0.09 = 704-7) Lab Interpretation Abnormal (test code = 14529-4) [facility] METABOLIC PANEL (NA, K, CL, CO2, GLUCOSE, BUN, CREATININE, CA)2019-12-29 10:24:00 Test Item Value Reference Range Interpretation Comments NA (test code = 141 mmol/L 135-145 3947940610) K (test code = 3.7 mmol/L 3.5-5 1644706383) CL (test code = 112 mmol/L 98-108 H 3997233093) CO2 TOTAL (test code = 23 mmol/L 23-31 0213611173) AGAP (test code = 2-16 6491870091) BUN (test code = 16 mg/dL 7-23 1332565751) GLUCOSE (test code = 178 mg/dL 70-110 H 0126556816) CREATININE (test code = 1.39 mg/dL 0.6-1.25 H 6331844158) CALCIUM (test code = 9.2 mg/dL 8.6-10.6 6074162693) eGFR Calculation mL/min/1.73m2 (Non-) (test code = 2235815166) eGFR Calculation mL/min/1.73m2 () (test code = 1657050318) THALIA (test code = THALIA) Association of Glomerular Filtration Rate (GFR) and Staging of Kidney Disease* + --+ --+ ------+| GFR (mL/min/1.73 m2) ?| With Kidney Damage ?| ?Without Kidney Damage+ --------+ --------+ +| ?>90 ?| ?Stage one ?| ? Normal ?+ ---+ ---+ -------+| ?60-89 ?| ?Stage two ?| ? Decreased GFR ? + --+ --+ ------+| ?30-59 ?| ?Stage three ?| ? Stage three ? + --+ --+ ------+| ?15-29 ?| ?Stage four ? | ? Stage four ?+ ---+ ---+ -------+| ?<15 (or dialysis) ? ?| ?Stage five ? | ? Stage five ?+ ---+ ---+ -------+ *Each stage assumes the associated GFR level has been in effect for at least three months. ?Stages 1 to 5, with or without kidney disease, indicate chronic kidney disease. Notes: Determination of stages one and two (with eGFR >59mL/min/1.73 m2) requires estimation of kidney damage for at least three months as defined by structural or functional abnormalities of the kidney, manifested by either:Pathological abnormalities or Markers of kidney damage (including abnormalities in the composition of the blood or urine or abnormalities in imaging tests). Lab Interpretation Abnormal (test code = 42226-7) [facility] GLUCOSE (AUTOMATED)2019-12-29 02:35:00 Test Item Value Reference Range Interpretation Comments POCT GLU (test code = 3002903672) 244 mg/dL 70-110 H Lab Interpretation (test code = Abnormal 07132-3) [facility] GLUCOSE (AUTOMATED)2019-12-29 02:35:00 Test Item Value Reference Range Interpretation Comments POCT GLU (test code = 8502997653) 259 mg/dL 70-110 H Lab Interpretation (test code = Abnormal 35871-8) [facility] GLUCOSE (AUTOMATED)2019-12-29 02:09:00 Test Item Value Reference Range Interpretation Comments POCT GLU (test code = 8590435875) 253 mg/dL 70-110 H Lab Interpretation (test code = Abnormal 40391-7) [facility] CAL[facility] [id number] 18:19:00 Test Item Value Reference Range Interpretation Comments CALCIUM (test code = 8.4 mg/dL 8.6-10.6 L 4062988854) PTH-INTACT (test code = 59.1 pg/mL 12-88 0740641577) PTH-CA Interpretation [facility] [facility] (test code = 5117283828) park a needed for interpretation. Lab Interpretation (test Abnormal code = 12966-5) [facility] HospitalLIPID PANEL (71875)(TOTAL CHOLESTEROL, TRIGLYCERIDES, HDL)2019-12-28 17:36:00 Test Item Value Reference Range Interpretation Comments CHOL (test code = 152 mg/dL 120-200 5261417301) HDL (test code = 41 mg/dL >40 6719703206) HDLC RATIO (test code = See_Comment [Au tomated message] 4616326039) The system [employer] generated this result transmit velasquez reference range : <=5.0. The refe rence range was not u sed to interpret th is result as normal/abnormal . TRIG (test code = 183 mg/dL 30-170 H 2749093278) LDL CHOL (test code = 74 mg/dL See_Comment [Auto mated message] 08733-7) The system [employer] generated this result transmit velasquez reference range : <=160. The refe rence range was not u sed to interpret th is result as normal/abnormal . VLDL (test code = 37 mg/dL 5-60 6307734607) Lab Interpretation (test Abnormal code = 39291-9) [facility] HospitalTROPONIN [id number] 16:50:00 Test Item Value Reference Range Interpretation Comments TROPONIN I (test 0.016 ng/mL See_Comment [Automated code = 2680105482) message] The system which generated this result transmitted reference range : <=0.034. The reference range was not used to interpret this result as normal/abnormal . THALIA (test code = Equal or Less than THALIA) 0.034 ng/ml---Normal ?Note: Cardiac troponin begins to rise 3-4 hours after the onset of ischemia. Repeat in 4-6 hours if the sample was drawn within 3-4 hours of the onset of the symptom and found normal. Between 0.035 and 0.120 ng/mL--- Borderline. Questionable myocardial injury or necrosis ? ?Note: Serial measurement may be necessary to confirm or exclude the diagnosis of myocardial injury or necrosis; Clinical correlation (symptoms, EKGs, imaging studies, and others) required; Repeat in 4-6 hours if clinically indicated. ? Equal or Higher than 0.121 ng/mL---Abnormal. Myocardial Injury or Necrosis Likely ? Biotin has been reported to cause a negative bias, interpret results relative to patient's use of biotin. ? Lab Interpretation Normal (test code = 02505-0) [facility]2019-12-28 16:11:00 Test Item Value Reference Range Interpretation Comments POCT GLU (test code = 9720983348) 192 mg/dL 70-110 H Lab Interpretation (test code = Abnormal 58463-5) [facility] (NA, K, CL, CO2, GLUCOSE, BUN, CREATININE, CA)2019-12-28 11:06:00 Test Item Value Reference Range Interpretation Comments NA (test code = 139 mmol/L 135-145 2720439123) K (test code = 3.8 mmol/L 3.5-5 5465971767) CL (test code = 110 mmol/L 98-108 H 3272731002) CO2 TOTAL (test code = 23 mmol/L 23-31 5317583406) AGAP (test code = 2-16 9055374506) BUN (test code = 20 mg/dL 7-23 2459881149) GLUCOSE (test code = 218 mg/dL 70-110 H 2986573344) CREATININE (test code = 2.16 mg/dL 0.6-1.25 H 8419815456) CALCIUM (test code = 8.4 mg/dL 8.6-10.6 L 3079105768) eGFR Calculation mL/min/1.73m2 (Non-) (test code = 6465593038) eGFR Calculation mL/min/1.73m2 () (test code = 9384398730) THALIA (test code = THALIA) Association of Glomerular Filtration Rate (GFR) and Staging of Kidney Disease* + --+ --+ ------+| GFR (mL/min/1.73 m2) ?| With Kidney Damage ?| ?Without Kidney Damage+ --------+ --------+ +| ?>90 ?| ?Stage one ?| ? Normal ?+ ---+ ---+ -------+| ?60-89 ?| ?Stage two ?| ? Decreased GFR ? + --+ --+ ------+| ?30-59 ?| ?Stage three ?| ? Stage three ? + --+ --+ ------+| ?15-29 ?| ?Stage four ? | ? Stage four ?+ ---+ ---+ -------+| ?<15 (or dialysis) ? ?| ?Stage five ? | ? Stage five ?+ ---+ ---+ -------+ *Each stage assumes the associated GFR level has been in effect for at least three months. ?Stages 1 to 5, with or without kidney disease, indicate chronic kidney disease. Notes: Determination of stages one and two (with eGFR >59mL/min/1.73 m2) requires estimation of kidney damage for at least three months as defined by structural or functional abnormalities of the kidney, manifested by either:Pathological abnormalities or Markers of kidney damage (including abnormalities in the composition of the blood or urine or abnormalities in imaging tests). Lab Interpretation Abnormal (test code = 42547-6) [facility] HospitalMagnesium [id number] 11:06:00 Test Item Value Reference Range Interpretation Comments MAGNESIUM (test code = 7978058608) 2.0 mg/dL 1.7-2.4 Lab Interpretation (test code = Normal 94159-4) [facility] PR[facility], URINE [id number] 10:47:00 Test Item Value Reference Range Interpretation Comments T. PROT U (test code = 2888-6) 337 mg/dL [facility] WITH [id number] 10:38:00 Test Item Value Reference Range Interpretation Comments WBC (test code = See_Comment [Automated 0090-2) message] The sy stem which generated this result transmitted reference range : 4.20 - 10.70 10*3/?L. The reference range was not used to interpret this result as normal/abnormal . RBC (test code = See_Comment L [Automated 059-8) message] The sy stem which generated this result transmitted reference range : 4.26 - 5.52 10*6/?L. The reference range was not used to interpret this result as normal/abnormal . HGB (test code = 11.6 g/dL 12.2-16.4 L 718-7) HCT (test code = 34.2 % 38.4-49.3 L 4544-3) MCV (test code = 91.7 fL 81.7-95.6 787-2) MCH (test code = 31.1 pg 26.1-32.7 785-6) MCHC (test code = 33.9 g/dL 31.2-35 786-4) RDW-SD (test code = 41.2 fL 38.5-51.6 79804-3) RDW-CV (test code = 12.3 % 12.1-15.4 788-0) PLT (test code = See_Comment [Automated 777-3) message] The sy stem which generated this result transmitted reference range : 150 - 328 10*3/ ?L. The reference r darin was not used to interpret this result as normal/abnormal . MPV (test code = 11.1 fL 9.8-13 11535-8) NRBC/100 WBC (test See_Comment [Automat ed code = 4520963192) message] The system which generated this result transmitted reference range : 0.0 - 10.0 /100 WBCs. The refer ence range was not u sed to interpret th is result as normal/abnormal . NRBC x10^3 (test code <0.01 See_Comment [Auto mated = 2451438893) message] The s ystem which generated this result transmitted reference range : 10*3/?L. The reference range was not used to interpret this result as normal/abnormal . GRAN MAT (NEUT) % 59.3 % (test code = 770-8) IMM GRAN % (test code 0.20 % = 1488200287) LYMPH % (test code = 31.3 % 736-9) MONO % (test code = 6.6 % 5905-5) EOS % (test code = 2.2 % 713-8) BASO % (test code = 0.4 % 706-2) GRAN MAT x10^3(ANC) 5.84 10*3/uL 1.99-6.95 (test code = 5206205104) IMM GRAN x10^3 (test <0.03 0-0.06 code = 5064527370) LYMPH x10^3 (test code 3.08 10*3/uL 1.09-3.23 = 731-0) MONO x10^3 (test code 0.65 10*3/uL 0.36-1.02 = 742-7) EOS x10^3 (test code = 0.22 10*3/uL 0.06-0.53 711-2) BASO x10^3 (test code 0.04 10*3/uL 0.01-0.09 = 704-7) Lab Interpretation Abnormal (test code = 28287-5) [facility] HospitalCREATININE, URINE [id number] 10:18:00 Test Item Value Reference Range Interpretation Comments CREAT U (test code = 8139503599) 121.5 mg/dL [facility])2019-12-28 09:51:00 Test Item Value Reference Range Interpretation Comments POCT GLU (test code = 6982258930) 127 mg/dL 70-110 H Lab Interpretation (test code = Abnormal 49738-5) [facility] HospitalURINALYSIS2020-03-07 08:06:00 Test Item Value Reference Range Interpretation Comments APPEARANCE (test code = Clear Clear 5666508230) COLOR (test code = Yellow Yellow 1316556029) PH (test code = 4.8-8.0 2552903667) SP GRAVITY (test code = 1.003-1.030 3761287162) GLU U QUAL (test code = 150 mg/dL Normal A 5068787141) BLOOD (test code = 1+ Negative A 7034710824) KETONES (test code = Negative Negative 2420512911) PROTEIN (test code = 100 mg/dL Negative A 2887-8) UROBILIN (test code = Normal Normal 5059674572) BILIRUBIN (test code = Negative Negative 9601070815) NITRITE (test code = Negative Negative 1190185008) LEUK LONNY (test code = Negative Negative 1219658895) RBC/HPF (test code = See_Comment [Autom ated message] 9406020637) The system [employer] generated this result transmit velasquez reference range : 0 - 3 HPF. The refe rence range was not u sed to interpret th is result as normal/abnormal . WBC/HPF (test code = See_Comment [Autom ated message] 9895443992) The system [employer] generated this result transmit velasquez reference range : 0 - 5 HPF. The refe rence range was not u sed to interpret th is result as normal/abnormal . BACTERIA (test code = Moderate Negative A 1976044450) MUCOUS (test code = Slight Negative LPF A 0223971812) AMORPHOUS (test code = Moderate Rare HPF A 8653849529) SQ EPITH (test code = <1 HPF 5834798916) HYAL CAST (test code = See_Comment H [Aut omated message] 1982131607) The system [employer] generated this result transmit velasquez reference range : <=2 LPF. The refere nce range was not u sed to interpret th is result as normal/abnormal . GRAN CASTS (test code = See_Comment [Au tomated message] 3053741829) The system [employer] generated this result transmit velasquez reference range : <=1 LPF. The refere nce range was not u sed to interpret th is result as normal/abnormal . Lab Interpretation (test Abnormal code = 46666-0) [facility] HospitalUS RETROPERITONEAL [id number] 02:55:16 Impression:1. ?[Unremarkable exam with no acute findings identified]. ? Location Code: 2831 Clinical statement: Acute renal failure Study: Renal ultrasound. Technique: Grayscale and color Doppler imaging of the kidneys and bladder. Ordering physician: MINI ORELLANA Comparison: [None]. Findings: The right kidney measures 11.3 x 6.7 x 6.8 cm. ?No hydronephrosisor echogenic stone is seen. ?Cortical thickness and echotexture is normal. The left kidney measures 12.3 x 7 x 1 x 5.5 cm. ?No hydronephrosis orechogenic stone is seen. ?Cortical thickness and echo texture is normal. Renal hilar flow is patent bilaterally. [The bladder is distended and unremarkable. ?The ureteral jets arepresent]. Visualized abdominal aorta is unremarkable. [facility], [facility]iant Results Inft User - 12/27/2019 8:56 PM CSTClinical statement: Acute renal failureStudy: Renal ultrasound.Technique: Grayscale and color Doppler imaging of the kidneys and bladder.Ordering physician: MINI LAWRENCEomparison: [None].Findings: The right kidney measures 11.3 x 6.7 x 6.8 cm. No hydronephrosisor echogenic stone is seen. Cortical thickness and echotexture is normal.The left kidney measures 12.3 x 7 x 1 x 5.5 cm. No hydronephrosis orechogenic stone is seen. Cortical thickness and echo texture is normal.Renal hilar flow is patent bilaterally.[The bladder is distended and unremarkable. The ureteral jets arepresent].Visualized abdominal aorta is unremarkable.IMPRESSIONImpression:1. [Unremarkable exam with no acute findings identified]. [facility] Code: [address] [facility] [id number] 02:41:00 Test Item Value Reference Range Interpretation Comments URIC ACID (test code = 8343402630) 7.4 mg/dL 3.6-8 Lab Interpretation (test code = Normal 80041-8) [facility] HospitalCREATINE [id number] 02:40:00 Test Item Value Reference Range Interpretation Comments CK (test code = 7157476734) 177 U/L 33-194 Lab Interpretation (test code = Normal 91641-6) [facility] HospitalXR WRIST 3+ VW [id number] 21:56:39 Possible nondisplaced distal radius fracture. Soft tissue swelling. Osteoarthrosis. Radiopaque foreign body adjacent to the index finger metacarpal. EXAM: XR WRIST 3+ VW LEFT HISTORY: left wrist injury from fall COMPARISON: None. FINDINGS: Soft tissue swelling is present about the wrist. No dislocation is seen.Linear lucency is seen in the distal radius extending to the articularsurface. Mild radiocarpal, STT and thumb carpometacarpal joint spacenarrowing is noted. Vascular calcifications are seen.Osteopenia issuggested. A 3 mm radiopaque foreign body projects over the soft tissuesradial to the index finger metacarpal. [facility], [facility] In[facility] User - 12/27/2019 3:57 PM CSTEXAM:XR WRIST 3+ VW LEFTHISTORY:left wrist injury from fall COMPARISON:None.FINDINGS: Soft tissue swelling is present about the wrist. No dislocation is seen.Linear lucency is seen in the distal radius extending to the articularsurface. Mild radiocarpal, STT and thumb carpometacarpal joint spacenarrowing is noted. Vascularcalcifications are seen. Osteopenia issuggested. A 3 mm radiopaque foreign body projects over the soft tissuesradial to the index finger metacarpal.IMPRESSIONPossible nondisplaced distal radius fracture.Soft tissue swelling.Osteoarthrosis.Radiopaque foreign body adjacent to the index finger metacarpal.[facility] HospitalXR CHEST 1 VW 2019-12-27 20:43:08No evidence of acute cardiopulmonary disease.2 VIEWS OF THE CHEST HISTORY: cough, dyspnea COMPARISON: 12/20/2019 TECHNIQUE: Two AP views views of the chest. FINDINGS: The lungs are clear. There is no focal consolidation, pleural effusion orpneumothorax. The cardiomediastinal silhouette is within normallimits. ?No acute bonyabnormalities are seen. Rounded density projecting over the posterior righteighth rib probably present calcified formation (unchanged in the shortinterval but new since February 2019).Changes in the lower cervical spine. [facility], [facility] In[facility] User - 12/27/2019 2:44 PM CST2 VIEWSOF THE CHESTHISTORY: cough, dyspnea COMPARISON: 12/20/2019TECHNIQUE: Two AP views views of the chest.FINDINGS:The lungs are clear. There is no focal consolidation, pleural effusion orpneumothorax.The cardiomediastinal silhouette is within normal limits. No acute bonyabnormalities are seen. Rounded density projecting over the posterior righteighth rib probably present calcified formation (unchanged in the shortinterval but new since February 2019). Changes in the lower cervical spine.IMPRESSIONNo evidence of acute cardiopulmonary disease. [facility] HospitalTroponin [id number] 20:15:00 Test Item Value Reference Range Interpretation Comments TROPONIN I (test 0.011 ng/mL See_Comment [Automated code = 6871445416) message] The system which generated this result transmitted reference range : <=0.034. The reference range was not used to interpret this result as normal/abnormal . THALIA (test code = Equal or Less than THALIA) 0.034 ng/ml---Normal ?Note: Cardiac troponin begins to rise 3-4 hours after the onset of ischemia. Repeat in 4-6 hours if the sample was drawn within 3-4 hours of the onset of the symptom and found normal. Between 0.035 and 0.120 ng/mL--- Borderline. Questionable myocardial injury or necrosis ? ?Note: Serial measurement may be necessary to confirm or exclude the diagnosis of myocardial injury or necrosis; Clinical correlation (symptoms, EKGs, imaging studies, and others) required; Repeat in 4-6 hours if clinically indicated. ? Equal or Higher than 0.121 ng/mL---Abnormal. Myocardial Injury or Necrosis Likely ? Biotin has been reported to cause a negative bias, interpret results relative to patient's use of biotin. ? Lab Interpretation Normal (test code = 91784-4) [facility] HospitalCT HEAD WO [id number] 20:13:56 No acute intracranial abnormality is present. Remote cortical and scatteredlacunar infarcts are redemonstrated as detailed above. No acute cervical fracture or traumatic malalignment.CT CERVICAL SPINEWO CONTRAST,CT HEAD WO CONTRAST HISTORY: Male 59 years C-spine trauma, high clinical risk (NEXUS/CCR) COMPARISON: CT head dated 12/20/2019 and MRI cervical spine dated 10/30/2017 TECHNIQUE: Routine CT head and CT cervical spine without contrast wereobtained FINDINGS: CT head: The lateral and third ventricles are mildly prominent and there is ex vacuodilatation of the left temporal and occipital horn. Nohydrocephalus,midline shift or pathological extra-axial fluid collection is present. Thebasal cisterns are unremarkable. No acute intracranial hemorrhage or mass effect is present. Remote infarcts are redemonstrated in the left [employer] and PICA territories.Numerous remote lacunar infarcts are redemonstrated in the bilateral basalganglia and thalami as well as in the right hemipons and centrum semiovale.The costello-white matter differentiation is otherwise preserved. The calvariumand skull base are unremarkable. The mastoid air cells and visualizedparanasal air sinuses are clear. CT cervical spine: Postsurgical changes of C5-C7 ACDF are noted without evidence of hardwarecomplication. Osseous fusion acrossthe C5-C6 and C6-C7 intervertebral discspaces has been achieved. The vertebral bodies are normal in height and in normal alignment. No facetfracture or subluxation is present. The craniocervical junction is intact.The prevertebral soft tissues are unremarkable. No more than mild degenerative changes are present. [facility], [facility] Results Inft User - 12/27/2019 2:15 PM CSTCT CERVICAL SPINE WO CONTRAST,CT HEAD WO CONTRASTHISTORY: Male 59 years C-spine trauma, high clinical risk (NEXUS/CCR) COMPARISON: CT head dated 12/20/2019 and MRI cervical spine dated 10/30/2017TECHNIQUE: Routine CT head and CT cervical spine without contrast wereobtainedFINDINGS:CT head:The lateral and third ventricles are mildly promin ent and there is ex vacuodilatation of the left temporal and occipital horn. No hydrocephalus,midline shift or pathological extra-axial fluid collection is present. Thebasal cisterns are unremarkable.No acute intracranial hemorrhage or mass effect is present.Remote infarcts are redemonstrated in the left [employer] and PICA territories.Numerous remote lacunar infarcts are redemonstrated in the bilateral basalganglia and thalami as well as in the right hemipons and centrum semiovale.The costello-white matter differentiation is otherwise preserved. The calvariumand skull base are unremarkable. The mastoid air cells and visualizedparanasal air sinuses are clear.CT cervical spine:Postsurgical changes of C5-C7 ACDF are noted without evidence of hardwarecomplication. Osseous fusion across the C5-C6 and C6-C7 intervertebral discspaces has been achieved.The vertebral bodies are normal in height and in normal alignment. No facetfracture or subluxation is present. The craniocervical junction is intact.The prevertebr al soft tissues are unremarkable.No more than mild degenerative changes are present.IMPRESSIONNo acute intracranial abnormality is present. Remote cortical and scatteredlacunar infarcts are redemonstrated as detailed above.No acute cervical fracture or traumatic malalignment.[facility] HospitalCT CERVICAL SPINE WO [id number] 20:13:56 No acute intracranial abnormality is present. Remote cortical and scatteredlacunar infarcts are redemonstrated as detailed above. No acute cervical fracture or traumatic malalignment.CT CERVICAL SPINEWO CONTRAST,CT HEAD WO CONTRAST HISTORY: Male 59 years C-spine trauma, high clinical risk (NEXUS/CCR) COMPARISON: CT head dated 12/20/2019 and MRI cervical spine dated 10/30/2017 TECHNIQUE: Routine CT head and CT cervical spine without contrast wereobtained FINDINGS: CT head: The lateral and third ventricles are mildly prominent and there is ex vacuodilatation of the left temporal and occipital horn. Nohydrocephalus,midline shift or pathological extra-axial fluid collection is present. Thebasal cisterns are unremarkable. No acute intracranial hemorrhage or mass effect is present. Remote infarcts are redemonstrated in the left [employer] and PICA territories.Numerous remote lacunar infarcts are redemonstrate d in the bilateral basalganglia and thalami as well as in the right hemipons and centrum semiovale.The costello-white matter differentiation is otherwise preserved. The calvariumand skull base are unremarkable. The mastoid air cells and visualizedparanasal air sinuses are clear. CT cervical spine: Postsurgical changes of C5-C7 ACDF are noted without evidence of hardwarecomplication. Osseous fusion acrossthe C5-C6 and C6-C7 intervertebral discspaces has been achieved. The vertebral bodies are normal in height and in normal alignment. No facetfracture or subluxation is present. The craniocervical junction is intact.The prevertebral soft tissues are unremarkable. No more than mild degenerative changes are present. [facility], [facility] Results Inft User - 12/27/2019 2:15 PM CSTCT CERVICAL SPINE WO CONTRAST,CT HEAD WO CONTRASTHISTORY: Male 59 years C-spine trauma, high clinical risk (NEXUS/CCR) COMPARISON: CT head dated 12/20/2019 and MRI cervical spine dated 10/30/2017TECHNIQUE: Routine CT head and CT cervical spine without contrast wereobtainedFINDINGS:CT head:The lateral and third ventricles are mildly prominent and there is ex vacuodilatation of the left temporal and occipital horn. No hydrocephalus,midline shift or pathological extra-axial fluid collection is present. Thebasal cisterns are unremarkable.No acute intracranial hemorrhage or mass effect is present.Remote infarcts are redemonstrated in the left [employer] and PICA territories.Numerous remote lacunar infarcts are redemonstrated in the bilateral basalganglia and thalami as well as in the right hemipons and centrum semiovale.The costello-white matter dif ferentiation is otherwise preserved. The calvariumand skull base are unremarkable. The mastoid air cells and visualizedparanasal air sinuses are clear.CT cervical spine:Postsurgical changes of C5-C7 ACDF are noted without evidence of hardwarecomplication. Osseous fusion across the C5-C6 and C6-C7 intervertebral discspaces has been achieved.The vertebral bodies are normal in height and in normal alignment. No facetfracture or subluxation is present. The craniocervical junction is intact.The prevertebral soft tissues are unremarkable.No more than mild degenerative changes are present.IMPRESSIONNo acute intracranial abnormality is present. Remote cortical and scatteredlacunar infarcts are redemonstrated as detailed above.No acute cervical fracture or traumatic malalignment.[facility]NP 2019-12-27 20:12:00 Test Item Value Reference Range Interpretation Comments NT-proBNP (test code 237 pg/mL See_Comment H [Autom ated = 6176225063) message] The system which generated this result transmitted reference range : <=125. The reference range was not used to interpret this result as normal/abnormal . THALIA (test code = THALIA) Biotin has been reported to cause a negative bias, interpret results relative to patient's use of biotin. Lab Interpretation Abnormal (test code = 53839-0) [facility] Metabolic Panel (NA, K, CL, CO2, GLUCOSE, BUN, CREATININE, CA)2019-12-27 20:03:00 Test Item Value Reference Range Interpretation Comments NA (test code = 142 mmol/L 135-145 2531561798) K (test code = 3.9 mmol/L 3.5-5 9089722338) CL (test code = 107 mmol/L 98-108 4062043249) CO2 TOTAL (test code = 26 mmol/L 23-31 3131178633) AGAP (test code = 2-16 7000327489) BUN (test code = 19 mg/dL 7-23 9196524257) GLUCOSE (test code = 255 mg/dL 70-110 H 9166431578) CREATININE (test code = 3.17 mg/dL 0.6-1.25 H 7700667463) CALCIUM (test code = 9.4 mg/dL 8.6-10.6 4553959209) eGFR Calculation mL/min/1.73m2 (Non-) (test code = 4171044624) eGFR Calculation mL/min/1.73m2 () (test code = 1100824734) THALIA (test code = THALIA) Association of Glomerular Filtration Rate (GFR) and Staging of Kidney Disease* + --+ --+ ------+| GFR (mL/min/1.73 m2) ?| With Kidney Damage ?| ?Without Kidney Damage+ --------+ --------+ +| ?>90 ?| ?Stage one ?| ? Normal ?+ ---+ ---+ -------+| ?60-89 ?| ?Stage two ?| ? Decreased GFR ? + --+ --+ ------+| ?30-59 ?| ?Stage three ?| ? Stage three ? + --+ --+ ------+| ?15-29 ?| ?Stage four ? | ? Stage four ?+ ---+ ---+ -------+| ?<15 (or dialysis) ? ?| ?Stage five ? | ? Stage five ?+ ---+ ---+ -------+ *Each stage assumes the associated GFR level has been in effect for at least three months. ?Stages 1 to 5, with or without kidney disease, indicate chronic kidney disease. Notes: Determination of stages one and two (with eGFR >59mL/min/1.73 m2) requires estimation of kidney damage for at least three months as defined by structural or functional abnormalities of the kidney, manifested by either:Pathological abnormalities or Markers of kidney damage (including abnormalities in the composition of the blood or urine or abnormalities in imaging tests). Lab Interpretation Abnormal (test code = 22462-3) [facility] (ALB, T.PRO, BILI T, BU/BC, ALT, AST, ALK PHOS)2019-12-27 20:03:00 Test Item Value Reference Range Interpretation Comments TOTAL BILI (test code = 9397652952) 0.5 mg/dL 0.1-1.1 BILI UNCON (test code = 8785569338) 0.7 mg/dL 0.1-1.1 BILI CONJ (test code = 5796836207) 0.0 mg/dL 0-0.3 T PROTEIN (test code = 3052613876) 7.7 g/dL 6.3-8.2 ALBUMIN (test code = 3346883830) 4.4 g/dL 3.5-5 ALK PHOS (test code = 9153140644) 90 U/L 34-122 ALTv (test code = 1742-6) 12 U/L 5-50 AST(SGOT) (test code = 6356291025) 19 U/L 13-40 Lab Interpretation (test code = Normal 27813-6) [facility] HospitalLipase [id number] 20:03:00 Test Item Value Reference Range Interpretation Comments LIPASE (test code = 9144335294) 49 U/L 0-220 Lab Interpretation (test code = Normal 90876-0) [facility] HospitalaPTT2020-03-06 20:03:00 Test Item Value Reference Range Interpretation Comments APTT Patient (test See_Comment [Automat ed code = 3173-2) message] The system which generated this result transmitted reference range : 23 - 38 Seconds . The reference range was not used to interpr et this result as normal/abnormal . THALIA (test code = THALIA) The [facility] patient population mean normal value for aPTT is 30 seconds. Lab Interpretation Normal (test code = 65008-0) [facility] HospitalProthrombin Time (PT) / [id number] 20:01:00 Test Item Value Reference Range Interpretation Comments PROTIME PATIENT (test See_Comment [Auto mated message] code = 5964-2) The system wh ich generated this result transmitted ref erence range: 12.0 - 1 4.7 Seconds. The re ference range was not u sed to interpret this result as normal/abnor mal. INR (test code = 6301-6) Nor mal INR <1.1; Warfarin Therap eutic range 2.0 to 3. 0 or 2.5 to 3.5, dep ending upon the indica tions. Lab Interpretation (test Normal code = 06836-8) [facility] HospitalCB WITH [id number] 19:52:00 Test Item Value Reference Range Interpretation Comments WBC (test code = See_Comment H [Automated 6390-2) message] The sy stem which generated this result transmitted reference range : 4.20 - 10.70 10*3/?L. The reference range was not used to interpret this result as normal/abnormal . RBC (test code = See_Comment [Automated 879-8) message] The sy stem which generated this result transmitted reference range : 4.26 - 5.52 10*6/?L. The reference range was not used to interpret this result as normal/abnormal . HGB (test code = 13.6 g/dL 12.2-16.4 718-7) HCT (test code = 40.9 % 38.4-49.3 4544-3) MCV (test code = 92.3 fL 81.7-95.6 787-2) MCH (test code = 30.7 pg 26.1-32.7 785-6) MCHC (test code = 33.3 g/dL 31.2-35 786-4) RDW-SD (test code = 42.5 fL 38.5-51.6 87435-6) RDW-CV (test code = 12.5 % 12.1-15.4 788-0) PLT (test code = See_Comment [Automated 777-3) message] The sy stem which generated this result transmitted reference range : 150 - 328 10*3/ ?L. The reference r darin was not used to interpret this result as normal/abnormal . MPV (test code = 10.9 fL 9.8-13 40291-5) NRBC/100 WBC (test See_Comment [Automat ed code = 0267476199) message] The system which generated this result transmitted reference range : 0.0 - 10.0 /100 WBCs. The refer ence range was not u sed to interpret th is result as normal/abnormal . NRBC x10^3 (test code <0.01 See_Comment [Auto mated = 2418380614) message] The s ystem which generated this result transmitted reference range : 10*3/?L. The reference range was not used to interpret this result as normal/abnormal . GRAN MAT (NEUT) % 79.1 % (test code = 770-8) IMM GRAN % (test code 0.50 % = 0331832500) LYMPH % (test code = 11.9 % 736-9) MONO % (test code = 7.1 % 5905-5) EOS % (test code = 0.9 % 713-8) BASO % (test code = 0.5 % 706-2) GRAN MAT x10^3(ANC) 9.63 10*3/uL 1.99-6.95 H (test code = 5845978778) IMM GRAN x10^3 (test 0.06 10*3/uL 0-0.06 code = 1482594208) LYMPH x10^3 (test code 1.45 10*3/uL 1.09-3.23 = 731-0) MONO x10^3 (test code 0.87 10*3/uL 0.36-1.02 = 742-7) EOS x10^3 (test code = 0.11 10*3/uL 0.06-0.53 711-2) BASO x10^3 (test code 0.06 10*3/uL 0.01-0.09 = 704-7) Lab Interpretation Abnormal (test code = 95702-9) [facility] HospitalPOCT GLUCOSE (AUTOMATED)2019-12-21 18:00:00 Test Item Value Reference Range Interpretation Comments POCT GLU (test code = 245 mg/dL 70-110 H Notifi ed Provider [id number]) Lab Interpretation (test Abnormal code = 44967-3) [facility] HospitalUREA NITROGEN, URINE [id number] 17:45:00 Test Item Value Reference Range Interpretation Comments UREA N UR (test code = 8925272693) 607 mg/dL [facility] HospitalCT ABDOMEN PELVIS WO [id number] 16:42:01Impression:1.No radiodense renal or ureteral stone.2.Constipation without obstruction.3. No active inflammatory process.4. Other findings as described. Location Code: 2831 Clinical statement: Abd pain, unspecified, non-acute Flank pain, stonedisease suspected Hydronephrosis Use oral contrast Study: A CT scan of the abdomen and pelvis was performed. No IV contrastadministration was administered. ?Axial images were obtained from the lungbases through the pelvis. CT radiation dose protocol performed inaccordance with principles of ALA. [facility] Physician:Jim Gardner Comparison:None Findings:Abdomen:Lung bases are clear without pleural or pericardial effusion. No radiodense renal stones identified. Solid and hollow organsunremarkable. Gallbladder and bile ducts are normal. Duodenal diverticulum is seen. 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 Pelvis: Normal appendix. Castillo catheter is present. The bladder isincompletely decompressed. Small fat-containing left inguinal hernia ispresent. Constipation and mild diverticulosis is present. No mass, adenopathy, free air, obstruction, pneumatosis, inflammatorychanges or collections are seen. Small inguinal lymph nodes are asymmetricon the right. No bony destructive lesion is seen. [facility], Radiant Results Inft User - 12/21/2019 10:44 AM CSTClinical statement: Abd pain, unspecified, non-acute Flank pain, stonedisease suspected Hydronephrosis Use oral contrastStudy: A CT scan of the abdomen and pelvis was performed. No IV contrastadministration was administered. Axial images were obtained from the lungbases through the pelvis. CT radiation dose protocol performed inaccordance with principles of ALARA.Ordering Physician:Jim Gardner Comparison:NoneFindings:Abdomen:Lung bases are clear without pleural or pericardial effusion.No radiodense renal stones identified. Solid andhollow organsunremarkable. Gallbladder and bile ducts are normal.Duodenal diverticulum is seen. Calcified plaque is seen in the aortawithout aneurysm.Pelvis: Normal appendix. Castillo catheter is present.The bladder isincompletely decompressed. Small fat-containing left inguinal hernia ispresent. Constipation and mild diverticulosis is present.No mass, adenopathy, free air, obstruction, pneumatosis, inflammatorychanges or collections are seen. Small inguinal lymph nodes are asymmetricon the right.No bony destructive lesion is seen.IMPRESSIONImpression:1.No radiodense renal or ureteral stone.2.Constipa tion without obstruction.3. No active inflammatory process.4. Other findings as described.Location Code: 2831 [facility] [id number] 15:32:00 Test Item Value Reference Range Interpretation Comments TROPONIN I (test 0.014 ng/mL See_Comment [Automated code = 7449004751) message] The system which generated this result transmitted reference range : <=0.034. The reference range was not used to interpret this result as normal/abnormal . THALIA (test code = Equal or Less than THALIA) 0.034 ng/ml---Normal ?Note: Cardiac troponin begins to rise 3-4 hours after the onset of ischemia. Repeat in 4-6 hours if the sample was drawn within 3-4 hours of the onset of the symptom and found normal. Between 0.035 and 0.120 ng/mL--- Borderline. Questionable myocardial injury or necrosis ? ?Note: Serial measurement may be necessary to confirm or exclude the diagnosis of myocardial injury or necrosis; Clinical correlation (symptoms, EKGs, imaging studies, and others) required; Repeat in 4-6 hours if clinically indicated. ? Equal or Higher than 0.121 ng/mL---Abnormal. Myocardial Injury or Necrosis Likely ? Biotin has been reported to cause a negative bias, interpret results relative to patient's use of biotin. ? Lab Interpretation Normal (test code = 12345-1) [facility] METABOLIC PANEL (NA, K, CL, CO2, GLUCOSE, BUN, CREATININE, CA)2019-12-21 15:21:00 Test Item Value Reference Range Interpretation Comments NA (test code = 138 mmol/L 135-145 6985587319) K (test code = 3.8 mmol/L 3.5-5 7656556409) CL (test code = 106 mmol/L 98-108 3134745118) CO2 TOTAL (test code = 24 mmol/L 23-31 4072705559) AGAP (test code = 2-16 4065157825) BUN (test code = 29 mg/dL 7-23 H 7884819890) GLUCOSE (test code = 256 mg/dL 70-110 H 1928305311) CREATININE (test code = 1.71 mg/dL 0.6-1.25 H 1005129218) CALCIUM (test code = 8.5 mg/dL 8.6-10.6 L 3798567555) eGFR Calculation mL/min/1.73m2 (Non-) (test code = 5673262619) eGFR Calculation mL/min/1.73m2 () (test code = 1999973407) THALIA (test code = THALIA) Association of Glomerular Filtration Rate (GFR) and Staging of Kidney Disease* + --+ --+ ------+| GFR (mL/min/1.73 m2) ?| With Kidney Damage ?| ?Without Kidney Damage+ --------+ --------+ +| ?>90 ?| ?Stage one ?| ? Normal ?+ ---+ ---+ -------+| ?60-89 ?| ?Stage two ?| ? Decreased GFR ? + --+ --+ ------+| ?30-59 ?| ?Stage three ?| ? Stage three ? + --+ --+ ------+| ?15-29 ?| ?Stage four ? | ? Stage four ?+ ---+ ---+ -------+| ?<15 (or dialysis) ? ?| ?Stage five ? | ? Stage five ?+ ---+ ---+ -------+ *Each stage assumes the associated GFR level has been in effect for at least three months. ?Stages 1 to 5, with or without kidney disease, indicate chronic kidney disease. Notes: Determination of stages one and two (with eGFR >59mL/min/1.73 m2) requires estimation of kidney damage for at least three months as defined by structural or functional abnormalities of the kidney, manifested by either:Pathological abnormalities or Markers of kidney damage (including abnormalities in the composition of the blood or urine or abnormalities in imaging tests). Lab Interpretation Abnormal (test code = 12941-4) [facility] HospitalURIC [id number] 15:21:00 Test Item Value Reference Range Interpretation Comments URIC ACID (test code = 5253165349) 6.8 mg/dL 3.6-8 Lab Interpretation (test code = Normal 34961-2) [facility] HospitalMAGNESIUM2020-02-29 15:21:00 Test Item Value Reference Range Interpretation Comments MAGNESIUM (test code = 0866821573) 2.3 mg/dL 1.7-2.4 Lab Interpretation (test code = Normal 99524-4) [facility] HospitalPHOSPHORUS2020-02-29 15:21:00 Test Item Value Reference Range Interpretation Comments PHOSPHORUS (test code = 8201061355) 3.0 mg/dL 2.5-5 Lab Interpretation (test code = Normal 31671-0) [facility] HospitalCBC WITH [id number] 15:13:00 Test Item Value Reference Range Interpretation Comments WBC (test code = See_Comment [Automated 4290-2) message] The sy stem which generated this result transmitted reference range : 4.20 - 10.70 10*3/?L. The reference range was not used to interpret this result as normal/abnormal . RBC (test code = See_Comment L [Automated 059-8) message] The sy stem which generated this result transmitted reference range : 4.26 - 5.52 10*6/?L. The reference range was not used to interpret this result as normal/abnormal . HGB (test code = 12.1 g/dL 12.2-16.4 L 718-7) HCT (test code = 35.4 % 38.4-49.3 L 4544-3) MCV (test code = 91.2 fL 81.7-95.6 787-2) MCH (test code = 31.2 pg 26.1-32.7 785-6) MCHC (test code = 34.2 g/dL 31.2-35 786-4) RDW-SD (test code = 41.1 fL 38.5-51.6 94332-5) RDW-CV (test code = 12.3 % 12.1-15.4 788-0) PLT (test code = See_Comment [Automated 777-3) message] The sy stem which generated this result transmitted reference range : 150 - 328 10*3/ ?L. The reference r darin was not used to interpret this result as normal/abnormal . MPV (test code = 11.2 fL 9.8-13 12175-5) NRBC/100 WBC (test See_Comment [Automat ed code = 6285437838) message] The system which generated this result transmitted reference range : 0.0 - 10.0 /100 WBCs. The refer ence range was not u sed to interpret th is result as normal/abnormal . NRBC x10^3 (test code <0.01 See_Comment [Auto mated = 6526181214) message] The s ystem which generated this result transmitted reference range : 10*3/?L. The reference range was not used to interpret this result as normal/abnormal . GRAN MAT (NEUT) % 54.7 % (test code = 770-8) IMM GRAN % (test code 0.30 % = 5246376660) LYMPH % (test code = 34.7 % 736-9) MONO % (test code = 7.2 % 5905-5) EOS % (test code = 2.4 % 713-8) BASO % (test code = 0.7 % 706-2) GRAN MAT x10^3(ANC) 4.98 10*3/uL 1.99-6.95 (test code = 2729828809) IMM GRAN x10^3 (test 0.03 10*3/uL 0-0.06 code = 2155964609) LYMPH x10^3 (test code 3.15 10*3/uL 1.09-3.23 = 731-0) MONO x10^3 (test code 0.65 10*3/uL 0.36-1.02 = 742-7) EOS x10^3 (test code = 0.22 10*3/uL 0.06-0.53 711-2) BASO x10^3 (test code 0.06 10*3/uL 0.01-0.09 = 704-7) Lab Interpretation Abnormal (test code = 11954-2) [facility] HospitalURINALYSIS2020-02-29 12:27:00 Test Item Value Reference Range Interpretation Comments APPEARANCE (test code = Clear Clear 5785086783) COLOR (test code = Yellow Yellow 2677435405) PH (test code = 4.8-8.0 2999951980) SP GRAVITY (test code = 1.003-1.030 3703985975) GLU U QUAL (test code = 150 mg/dL Normal A 3976747090) BLOOD (test code = 1+ Negative A 0654783191) KETONES (test code = Negative Negative 3987773111) PROTEIN (test code = 100 mg/dL Negative A 2887-8) UROBILIN (test code = Normal Normal 4222492053) BILIRUBIN (test code = Negative Negative 1506344754) NITRITE (test code = Negative Negative 0059031661) LEUK LONNY (test code = Negative Negative 0817415962) RBC/HPF (test code = See_Comment [Autom ated message] 7810973399) The system [employer] generated this result transmit velasquez reference range : 0 - 3 HPF. The refe rence range was not u sed to interpret th is result as normal/abnormal . WBC/HPF (test code = <1 See_Comment [Autom ated message] 0398217800) The system [employer] generated this result transmit velasquez reference range : 0 - 5 HPF. The refe rence range was not u sed to interpret th is result as normal/abnormal . BACTERIA (test code = Few Negative A 0489563046) MUCOUS (test code = Slight Negative LPF A 6418684201) SQ EPITH (test code = <1 HPF 3781035591) HYAL CAST (test code = See_Comment H [Aut omated message] 5378694740) The system whic h generated this result transmit velasquez reference range : <=2 LPF. The refere nce range was not u sed to interpret th is result as normal/abnormal . Lab Interpretation (test Abnormal code = 18148-6) [facility] HospitalPO[facility] GLUCOSE (AUTOMATED)2019-12-21 07:54:00 Test Item Value Reference Range Interpretation Comments POCT GLU (test code = 2521688360) 212 mg/dL 70-110 H Lab Interpretation (test code = Abnormal 92679-5) [facility] HospitalPROTEIN CREAT RATIO URINE [id number] 07:24:00 Test Item Value Reference Range Interpretation Comments T. PROT U (test code = 363 mg/dL 2888-6) CREAT U (test code = 168.0 mg/dL 5389274364) Protein/Creatinine Ratio 0.0-2.0 H Urine (test code = 6323707722) THALIA (test code = THALIA) Random Urine Total Protein Reference Ranges Random Specimen: ? Less than 10 mg/dLFirst Morning Specimen: ? ?Less than 20 mg/dL ? Lab Interpretation (test Abnormal code = 06157-2) [facility] HospitalTROPONIN [id number] 06:42:00 Test Item Value Reference Range Interpretation Comments TROPONIN I (test 0.011 ng/mL See_Comment [Automated code = 6088757535) message] The system which generated this result transmitted reference range : <=0.034. The reference range was not used to interpret this result as normal/abnormal . THALIA (test code = Equal or Less than THALIA) 0.034 ng/ml---Normal ?Note: Cardiac troponin begins to rise 3-4 hours after the onset of ischemia. Repeat in 4-6 hours if the sample was drawn within 3-4 hours of the onset of the symptom and found normal. Between 0.035 and 0.120 ng/mL--- Borderline. Questionable myocardial injury or necrosis ? ?Note: Serial measurement may be necessary to confirm or exclude the diagnosis of myocardial injury or necrosis; Clinical correlation (symptoms, EKGs, imaging studies, and others) required; Repeat in 4-6 hours if clinically indicated. ? Equal or Higher than 0.121 ng/mL---Abnormal. Myocardial Injury or Necrosis Likely ? Biotin has been reported to cause a negative bias, interpret results relative to patient's use of biotin. ? Lab Interpretation Normal (test code = 49939-9) [facility] / [facility] - DRUG SCREEN [id number] 06:36:00 Test Item Value Reference Range Interpretation Comments BENZO U (test code = Negative Negative 5500291821) MARE U (test code = Negative Negative 4849391326) AMPHET (test code = Negative Negative 5524758313) THC (test code = Negative Negative 5683055712) METHADONE (test code Negative Negative = 0119156943) Meth U (test code = Negative Negative 7092916886) OPIATES (test code = Negative Negative 0590777648) Cocaine Metabolite Negative Negative (test code = 5625393698) PROPOXY (test code = Negative Negative 9383981616) Tric U (test code = Presumptive Negative A Confirma tion of 6543059122) Positive Presumptive Positive TCA result requires physician order and this will b e sent to referen ce lab. PCP (test code = Negative Negative 6114353097) OXYCOD (test code = Negative Negative 2488233605) THALIA (test code = Urine Drug Cutoff THALIA) Ranges Benzodiazepines: ? ? 150 ng/mLBarbiturates : ?200 ng/mLAmphetamine: ? 500 ng/mLCannabinoids : ?50 ?ng/mLMethadone: ? 200 ng/mLMethamphetam ine: ? ? 500 ng/mL Opiates: ? 100 ng/mL or 2000 ng/mLCocaine: ? 150 ng/mLPropoxyphene : ?300 ng/mLTricyclics: ?300 ng/mLOxycodone: ? 100 ng/mLPCP: ? 25 ?ng/mL The results are to be used only for medical (i.e., treatment) purposes. Unconfirmed screening results must not be used for non-medical purposes (e.g., employment testing, legal testing). Lab Interpretation Abnormal (test code = 60252-7) [facility] HospitalUrinalysis2020-02-29 06:34:00 Test Item Value Reference Range Interpretation Comments APPEARANCE (test code = Hazy Clear A 7647601678) COLOR (test code = Yellow Yellow 0515809656) PH (test code = 4.8-8.0 0693205205) SP GRAVITY (test code = 1.003-1.030 0484139481) GLU U QUAL (test code = 500 mg/dL Normal A 1589228562) BLOOD (test code = Negative Negative 2904403086) KETONES (test code = Negative Negative 3920435921) PROTEIN (test code = 100 mg/dL Negative A 2887-8) UROBILIN (test code = 2.0 mg/dL Normal A 4178010213) BILIRUBIN (test code = Negative Negative 4114154608) NITRITE (test code = Negative Negative 9625019634) LEUK LONNY (test code = Negative Negative 6682427767) RBC/HPF (test code = <1 See_Comment [Autom ated message] 0656743822) The system [employer] generated this result transmit velasquez reference range : 0 - 3 HPF. The refe rence range was not u sed to interpret th is result as normal/abnormal . WBC/HPF (test code = See_Comment [Autom ated message] 0394135031) The system [employer] generated this result transmit velasquez reference range : 0 - 5 HPF. The refe rence range was not u sed to interpret th is result as normal/abnormal . BACTERIA (test code = Moderate Negative A 7912382119) MUCOUS (test code = Slight Negative LPF A 0961473492) SQ EPITH (test code = HPF 2597571599) HYAL CAST (test code = See_Comment H [Aut omated message] 6248475337) The system [employer] generated this result transmit velasquez reference range : <=2 LPF. The refere nce range was not u sed to interpret th is result as normal/abnormal . Lab Interpretation (test Abnormal code = 50775-9) [facility] HospitalSODIUM, URINE [id number] 06:28:00 Test Item Value Reference Range Interpretation Comments NA URINE (test code = 7303553816) 42 mmol/L [facility] HospitalGlycosylated Hemoglobin (A1C)2019-12-21 05:39:00 Test Item Value Reference Interpretation Comments Range HGB A1C (test code = See_Comment H [Autom ated 4548-4) message] The system which generated this result transmitted reference range : 4.0 - 6.0 % NGSP. The reference range was not used to interpret this result as normal/abnormal . THALIA (test code = %A1C (NGSP) THALIA) Interpretation (ADA)4.8-5.6 ? ? Normal or (Non-Diabetic Range)5.7-6.4 ? ? Increased Risk (Pre-Diabetic)>6.5 ?Diabetes Indicated Lab Interpretation Abnormal (test code = 87835-9) [facility]IC [id number] 05:26:00 Test Item Value Reference Range Interpretation Comments URIC ACID (test code = 1145154161) 7.3 mg/dL 3.6-8 Lab Interpretation (test code = Normal 39885-1) [facility] HospitalMAGNESIUM2020-02-29 05:26:00 Test Item Value Reference Range Interpretation Comments MAGNESIUM (test code = 8766321140) 2.3 mg/dL 1.7-2.4 Lab Interpretation (test code = Normal 28570-8) [facility] HospitalCREATINE [id number] 05:25:00 Test Item Value Reference Range Interpretation Comments CK (test code = 5634661558) 696 U/L 33-194 H Lab Interpretation (test code = Abnormal 33572-8) [facility] HospitalETHANOL2020-02-29 03:04:00 Test Item Value Reference Range Interpretation Comments ALCOHOL (test code = <10 mg/dL 0409733166) THALIA (test code = THALIA) <10 [id number] Toxic>100 Depression of BUILDING COORDINATOR>400 Fatalities Reported [facility] HospitalCT HEAD WO [id number] 01:17:21 No acute intracranial findings. Chronic ischemic changes as discussed inthe body the report. HISTORY:Altered mental status (AMS), unclear cause TECHNIQUE: Noncontrast head CT was performed. 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 This is chronic and unchangedsince the last CT. Chronic ischemic changes are also identified in theright caudate and adjacent white matter, unchanged from the last CT. The ventricles and sulci are otherwise appropriate for patient's age. Thereis no midline shift. The basal cisterns are preserved. No acuteintracranial hemorrhage or mass effect is seen. The extracranialtissuesdemonstrate no acute findings. 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 This is chronic and unchangedsince the last CT. Chronic ischemic changes are also identified in theright caudate and adjacent white matter, unchanged from the last CT.The ventricles and sulci are otherwise appropriate for patient's age. Thereis no midline shift. The basalcisterns are preserved. No acuteintracranial hemorrhage or mass effect is seen. The extracranial tissuesdemonstrate no acute findings.IMPRESSIONNo acute intracranial findings. Chronic ischemic changes as discussed inthe body the report.[facility] [id number] 00:53:00 Test Item Value Reference Range Interpretation Comments TROPONIN I (test 0.015 ng/mL See_Comment [Automated code = 5153586526) message] The system which generated this result transmitted reference range : <=0.034. The reference range was not used to interpret this result as normal/abnormal . THALIA (test code = Equal or Less than THALIA) 0.034 ng/ml---Normal ?Note: Cardiac troponin begins to rise 3-4 hours after the onset of ischemia. Repeat in 4-6 hours if the sample was drawn within 3-4 hours of the onset of the symptom and found normal. Between 0.035 and 0.120 ng/mL--- Borderline. Questionable myocardial injury or necrosis ? ?Note: Serial measurement may be necessary to confirm or exclude the diagnosis of myocardial injury or necrosis; Clinical correlation (symptoms, EKGs, imaging studies, and others) required; Repeat in 4-6 hours if clinically indicated. ? Equal or Higher than 0.121 ng/mL---Abnormal. Myocardial Injury or Necrosis Likely ? Biotin has been reported to cause a negative bias, interpret results relative to patient's use of biotin. ? Lab Interpretation Normal (test code = 50551-2) [facility] HospitalN-TERMINAL [id number] 00:50:00 Test Item Value Reference Range Interpretation Comments NT-proBNP (test code 67 pg/mL See_Comment [Autom ated = 2260895614) message] The system which generated this result transmitted reference range : <=125. The reference range was not used to interpret this result as normal/abnormal . THALIA (test code = THALIA) Biotin has been reported to cause a negative bias, interpret results relative to patient's use of biotin. Lab Interpretation Normal (test code = 26837-1) [facility] (NA, K, CL, CO2, GLUCOSE, BUN, CREATININE, CA)2019-12-21 00:41:00 Test Item Value Reference Range Interpretation Comments NA (test code = 139 mmol/L 135-145 9010114443) K (test code = 3.9 mmol/L 3.5-5 0588431137) CL (test code = 106 mmol/L 98-108 1647092354) CO2 TOTAL (test code = 25 mmol/L 23-31 3863974923) AGAP (test code = 2-16 9048050782) BUN (test code = 32 mg/dL 7-23 H 1101565374) GLUCOSE (test code = 186 mg/dL 70-110 H 9266821032) CREATININE (test code = 2.72 mg/dL 0.6-1.25 H 8602774268) CALCIUM (test code = 8.9 mg/dL 8.6-10.6 4320489309) eGFR Calculation mL/min/1.73m2 (Non-) (test code = 0333464675) eGFR Calculation mL/min/1.73m2 () (test code = 3000340389) THALIA (test code = THALIA) Association of Glomerular Filtration Rate (GFR) and Staging of Kidney Disease* + --+ --+ ------+| GFR (mL/min/1.73 m2) ?| With Kidney Damage ?| ?Without Kidney Damage+ --------+ --------+ +| ?>90 ?| ?Stage one ?| ? Normal ?+ ---+ ---+ -------+| ?60-89 ?| ?Stage two ?| ? Decreased GFR ? + --+ --+ ------+| ?30-59 ?| ?Stage three ?| ? Stage three ? + --+ --+ ------+| ?15-29 ?| ?Stage four ? | ? Stage four ?+ ---+ ---+ -------+| ?<15 (or dialysis) ? ?| ?Stage five ? | ? Stage five ?+ ---+ ---+ -------+ *Each stage assumes the associated GFR level has been in effect for at least three months. ?Stages 1 to 5, with or without kidney disease, indicate chronic kidney disease. Notes: Determination of stages one and two (with eGFR >59mL/min/1.73 m2) requires estimation of kidney damage for at least three months as defined by structural or functional abnormalities of the kidney, manifested by either:Pathological abnormalities or Markers of kidney damage (including abnormalities in the composition of the blood or urine or abnormalities in imaging tests). Lab Interpretation Abnormal (test code = 14071-4) [facility] HospitalHepatic Function Panel (ALB, T.PRO, BILI T, BU/BC, ALT, AST, ALK PHOS)2019-12-21 00:41:00 Test Item Value Reference Range Interpretation Comments TOTAL BILI (test code = 0776687130) 0.3 mg/dL 0.1-1.1 BILI UNCON (test code = 0405651766) 0.2 mg/dL 0.1-1.1 BILI CONJ (test code = 7840441657) 0.0 mg/dL 0-0.3 T PROTEIN (test code = 7978966923) 6.8 g/dL 6.3-8.2 ALBUMIN (test code = 0667636208) 4.0 g/dL 3.5-5 ALK PHOS (test code = 8759023327) 96 U/L 34-122 ALTv (test code = 1742-6) 11 U/L 5-50 AST(SGOT) (test code = 8226039498) 24 U/L 13-40 Lab Interpretation (test code = Normal 24261-2) [facility] HospitalLipase [id number] 00:41:00 Test Item Value Reference Range Interpretation Comments LIPASE (test code = 3555882670) 49 U/L 0-220 Lab Interpretation (test code = Normal 84653-1) [facility] HospitalProthrombin Time (PT) / [id number] 00:39:00 Test Item Value Reference Range Interpretation Comments PROTIME PATIENT (test See_Comment [Auto mated message] code = 5964-2) The system wh ich generated this result transmitted ref erence range: 12.0 - 1 4.7 Seconds. The re ference range was not u sed to interpret this result as normal/abnor mal. INR (test code = 6301-6) Nor mal INR <1.1; Warfarin Therap eutic range 2.0 to 3. 0 or 2.5 to 3.5, dep ending upon the indica tions. Lab Interpretation (test Normal code = 34766-8) [facility] HospitalaPTT2020-02-29 00:38:00 Test Item Value Reference Range Interpretation Comments APTT Patient (test See_Comment [Automat ed code = 3173-2) message] The system which generated this result transmitted reference range : 23 - 38 Seconds . The reference range was not used to interpr et this result as normal/abnormal . THALIA (test code = THALIA) The [facility] patient population mean normal value for aPTT is 30 seconds. Lab Interpretation Normal (test code = 77872-6) [facility] HospitalCBC WITH [id number] 00:30:00 Test Item Value Reference Range Interpretation Comments WBC (test code = See_Comment [Automated 6690-2) message] The sy stem which generated this result transmitted reference range : 4.20 - 10.70 10*3/?L. The reference range was not used to interpret this result as normal/abnormal . RBC (test code = See_Comment L [Automated 789-8) message] The sy stem which generated this result transmitted reference range : 4.26 - 5.52 10*6/?L. The reference range was not used to interpret this result as normal/abnormal . HGB (test code = 13.2 g/dL 12.2-16.4 718-7) HCT (test code = 38.6 % 38.4-49.3 4544-3) MCV (test code = 91.7 fL 81.7-95.6 787-2) MCH (test code = 31.4 pg 26.1-32.7 785-6) MCHC (test code = 34.2 g/dL 31.2-35 786-4) RDW-SD (test code = 41.7 fL 38.5-51.6 69499-1) RDW-CV (test code = 12.5 % 12.1-15.4 788-0) PLT (test code = See_Comment [Automated 777-3) message] The sy stem which generated this result transmitted reference range : 150 - 328 10*3/ ?L. The reference r darin was not used to interpret this result as normal/abnormal . MPV (test code = 10.6 fL 9.8-13 07448-4) NRBC/100 WBC (test See_Comment [Automat ed code = 6879650673) message] The system which generated this result transmitted reference range : 0.0 - 10.0 /100 WBCs. The refer ence range was not u sed to interpret th is result as normal/abnormal . NRBC x10^3 (test code <0.01 See_Comment [Auto mated = 1528625626) message] The s ystem which generated this result transmitted reference range : 10*3/?L. The reference range was not used to interpret this result as normal/abnormal . GRAN MAT (NEUT) % 71.9 % (test code = 770-8) IMM GRAN % (test code 0.50 % = 4882110071) LYMPH % (test code = 19.1 % 736-9) MONO % (test code = 6.7 % 5905-5) EOS % (test code = 1.2 % 713-8) BASO % (test code = 0.6 % 706-2) GRAN MAT x10^3(ANC) 7.21 10*3/uL 1.99-6.95 H (test code = 2591821896) IMM GRAN x10^3 (test 0.05 10*3/uL 0-0.06 code = 8374713923) LYMPH x10^3 (test code 1.91 10*3/uL 1.09-3.23 = 731-0) MONO x10^3 (test code 0.67 10*3/uL 0.36-1.02 = 742-7) EOS x10^3 (test code = 0.12 10*3/uL 0.06-0.53 711-2) BASO x10^3 (test code 0.06 10*3/uL 0.01-0.09 = 704-7) Lab Interpretation Abnormal (test code = 69564-9) [facility] HospitalURINALYSIS2019-08-28 19:44:00 Test Item Value Reference Range Interpretation Comments APPEARANCE (test code Slightly Cloudy Clear A = 6056108673) COLOR (test code = Yellow Yellow 1829095846) PH (test code = 4.8-8.0 8334245743) SP GRAVITY (test code >=1.030 1.003-1.030 = 7188962920) GLU U QUAL (test code 500 mg/dL Negative A = 5629223455) BLOOD (test code = Moderate Negative A 1772893759) KETONES (test code = Negative Negative 1077350060) PROTEIN (test code = >300 mg/dL Negative A 2887-8) UROBILIN (test code = 0.2 mg/dL See_Comment [Auto mated 1091530410) message] The system which generated this result transmit velasquez reference range : 0-1.0 mg/dL. Th e reference range was not used to interpret this result as normal/abnormal . BILIRUBIN (test code Negative Negative = 2733334195) NITRITE (test code = Negative Negative 3897749959) LEUK LONNY (test code Negative Negative = 7868649750) RBC/HPF (test code = See_Comment [Autom ated 7521382786) message] The system which generated this result transmit velasquez reference range : 0 - 3 HPF. The reference range was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 care. Return to emergency room if symptoms worsenor fail to improve. Time Seen by Provider: 10/10/22 14:54 - Depart Patient Account Discharge Date/Time: 10/11/22 02:48 Dictated By: Griselda Loredo NP Signed By: Griselda Loredo NP 10/11/22 0010 Jaylin Morris DO 10/14/22 1841 DD/ 1511 TD/TT: 10/10/221510 Biophysics Professor: RAFAEL Farah cc: PCPNO* Pcp-None,Md MD DUGGAN Physician DocumentationLECCOObdulia Loredo[id number]:11:00P.NIMESH V Available for patient [id number]:42:23"
[2023-09-23 16:18] LABS: Absolute Lymphocytes (CBC) 3.5 K/uL (0.7-4.9); Hematocrit 34.2 % (39.6-49.0); Lymphocytes % 34.1 % (15.3-44.8); MCV 88.4 fL (80-100); MPV 7.7 fL (7.6-11.3); Platelets 446 thou/uL (152-406); RBC Red Blood Cell Count 3.87 M/uL (4.33-5.43)
[2023-09-23 16:38] LABS: AST/SGOT 11 U/L (15-37); Albumin 2.1 g/dL (3.4-5.0); Alkaline Phosphatase 79 U/L (45-117); BUN Blood Urea Nitrogen 15 mg/dL (7-18); Bicarbonate 27 mEq/L (21-32); Bilirubin Total 0.6 mg/dL (0.2-1.0); Glomerular Filtration Rate 92 ml/min (=/>90); Glucose Level 162 mg/dL (74-106); Potassium 3.6 mEq/L (3.5-5.1); Protein, Total 7.2 g/dL (6.4-8.2); Sodium Level 143 mEq/L (136-145)
[2023-09-23 16:42] LABS: ALT/SGPT < 10 U/L (16-61)
[2023-09-23] MEDS ORDERED: LIDOCAINE HCL JELLY 2% 6 ML SYRINGE TOP ONE (16:45)
[2023-09-23] MEDS ORDERED: NA CHLORIDE 0.9% 1,000 ML ONE (16:46)
[2023-09-23 17:23] LABS: Specific Gravity 1.022 (1.005-1.030); Urine Bacteria <20 /HPF (<20); Urine Bilirubin NEGATIVE (Negative); Urine Blood 3+ (OVER) (Negative); Urine Clarity Extremely Turbid (Clear); Urine Color Yellow (Yellow); Urine Glucose NEGATIVE (Negative); Urine Mucus Slight /HPF (None Seen); Urine Protein 2+ (Negative); Urine RBC >50 /HPF (None Seen); Urine Urobilinogen Normal (Normal); Urine pH 5.5 (5.0-7.0)
--- NOTE | 2023-09-23 17:55 | ER ---
Nurse's Notes [facility] Name: Taye Lagunas Age: 62 yrs Sex: Male : 1960 Arrival Date: 09/23/2023 Time: 15:15 Bed 18 Private MD: Diagnosis: Retention of urine, unspecified-600 CC;UTI/ Urinary tract infection, site not specified;Hematuria, unspecified Presentation: 09/23 15:35 Chief complaint: EMS states: toned out for urinary retention. After attempting to me1 insert lang cath x 1 patient had some hematuria. Patient is currently on hospice for failure to thrive. Coronavirus screen: Vaccine status: Patient reports being unvaccinated. Ebola Screen: No symptoms or risks identified at this time. Initial Sepsis Screen: Does the patient meet any 2 criteria? No. Patient's initial sepsis screen is negative. Does the patient have a suspected source of infection? No. Patient's initial sepsis screen is negative. Risk Assessment: Do you want to hurt yourself or someone else? Patient reports no desire to harm self or others. Onset of symptoms was September 23, 2023. 15:35 Method Of Arrival: EMS: [facility] me1 15:35 Acuity: MADELINE 4 me1 Triage Assessment: 15:38 General: Appears uncomfortable, unkempt, emaciated, cachectic, Behavior is cooperative, me1 appropriate for age, fussy, Reports urinary retention. Nurse at facility tried to insert catheter unsuccessfully and patient has hematuria. Pain: Denies pain. Neuro: Level of Consciousness is awake, alert, obeys commands, Oriented to person, place, time, situation, Appropriate for age. Cardiovascular: Capillary refill < 3 seconds Patient's skin is warm and dry. Respiratory: Airway is patent Respiratory effort is even, unlabored, Respiratory pattern is regular, symmetrical. : Reports retention. Musculoskeletal: contractures x 4 extremities. Historical: - Allergies: 15:38 No Known Allergies; me1 - PMHx: 15:38 Acute Kidney Failure; Anxiety; Aphasia; Blood pressure problem; BPH; CVA; depressive me1 disorder; diabetes mellitus; spondylolysis; weakness; - Immunization history:: Adult Immunizations up to date. - Social history:: Smoking status: Patient/guardian denies using tobacco, but has a distant history of tobacco abuse. Screenin:40 [facility] ED Fall Risk Assessment (Adult) History of falling in the last 3 months, me1 including since admission No falls in past 3 months (0 pts) Confusion or Disorientation No (0 pts) Intoxicated or Sedated No (0 pts) Impaired Gait Yes (1 pt) Mobility Assist Device Used Yes (1 pt) Altered Elimination Yes (1 pt) Score/Fall Risk Level 3 or more points = High Risk Maintained a safe environment, Hourly rounding (assess needs \T\ fall precautionary measures) done, Used ambulatory aids as needed (educated on \T\ assisted with). Abuse screen: Denies threats or abuse. Nutritional screening: No deficits noted. Tuberculosis screening: No symptoms or risk factors identified. Assessment: 15:40 General: See triage assessment. . me1 Vital Signs: 15:35 BP 179 / 91; Pulse 108; Resp 19; Temp 98.4(A); Pulse Ox 96% on R/A; Weight 64.5 kg; me1 Height 5 ft. 4 in. ; 16:00 BP 161 / 84; Pulse 104; Resp 16; Pulse Ox 97% on R/A; me1 17:00 BP 120 / 70; Pulse 97; Resp 16; Pulse Ox 97% on R/A; me1 18:00 BP 162 / 83; Pulse 98; Resp 17; Pulse Ox 98% on R/A; me1 15:35 Body Mass Index 24.41 (64.50 kg, 162.56 cm) me1 Jefferson Coma Score: 17:41 Eye Response: spontaneous(4). Motor Response: obeys commands(6). Verbal Response: amie oriented(5). Total: 15. ED Course: 15:27 Patient arrived in ED. eb 15:34 Arabella Vyas, ANTHONY is Primary Nurse. me1 15:38 Triage completed. me1 15:38 Arm band placed on Patient placed in an exam room. me1 15:40 Patient has correct armband on for positive identification. Bed in low position. Call me1 light in reach. Side rails up X2. Provided Education on: POC. Verbalized understanding. . 15:40 No provider procedures requiring assistance completed. me1 15:46 Clarence Padgett MD is Attending Physician. amie 16:10 Inserted saline lock: 22 gauge in right antecubital area, using aseptic technique. me1 16:11 Comprehensive Metabolic Panel Sent. me1 16:11 CBC with Diff Sent. me1 16:45 Lang cath inserted, using sterile technique, 16 Fr., balloon inflated, to gravity me1 drainage, urine specimen collected. other by Dr Padgett. 16:58 Urinalysis w/ reflexes Sent. me1 17:55 Louis Corcoran MD is Referral Physician. [facility] 18:13 IV discontinued, intact, bleeding controlled, No redness/swelling at site. Pressure me1 dressing applied. Administered Medications: 16:58 Drug: NS 0.9% IV 1000 ml IV at 125 ml/hr continuous Route: IV; Rate: 125 ml/hr; Site: me1 right antecubital; 18:01 Drug: Ciprofloxacin PO 500 mg PO once Route: PO; me1 18:17 Follow up: Response: No adverse reaction me1 Medication: 15:40 VIS not applicable for this client. me1 Outcome: 17:55 Discharge ordered by . [facility] 18:11 [facility] [address]. Report called to Ania. Ania to set up ca1 transportation back at this time. 18:11 Condition: stable 18:13 Discharge instructions given to family, jail, Instructed on discharge me1 instructions, follow up and referral plans. Demonstrated understanding of instructions, follow-up care, 20:53 Patient left the ED. kl Signatures: Lisa Pathak, RN Clarence Duncan MD MD cha Botello, Elizabeth eb Eddleman, Michelle, RN RN ca1
--- NOTE | 2023-09-23 17:55 | EDPHYS ---
Physician Documentation [facility] Name: Taye Lagunas Age: 62 yrs Sex: Male : 1960 Arrival Date: 09/23/2023 Time: 15:15 Bed 18 Private MD: ED Physician Clarence Padgett HPI: 09/23 17:40 This 62 yrs old Male presents to ER via EMS with complaints of urinary amie retention, not able to place lang. 17:40 The patient presents with urinary symptoms, unable to void. Onset: The symptoms/episode amie began/occurred today. Modifying factors: The symptoms are alleviated by nothing, the symptoms are aggravated by nothing. Associated signs and symptoms: The patient has no apparent associated signs or symptoms. Severity of symptoms: At their worst the symptoms were mild, in the emergency department the symptoms are unchanged. It is unknown whether or not the patient has had similar symptoms in the past. Historical: - Allergies: 15:38 No Known Allergies; me1 - PMHx: 15:38 Acute Kidney Failure; Anxiety; Aphasia; Blood pressure problem; BPH; CVA; depressive me1 disorder; diabetes mellitus; spondylolysis; weakness; - Immunization history:: Adult Immunizations up to date. - Social history:: Smoking status: Patient/guardian denies using tobacco, but has a distant history of tobacco abuse. ROS: 17:41 Constitutional: Negative for fever, chills, and weight loss, Eyes: Negative for injury, amie pain, redness, and discharge, ENT: Negative for injury, pain, and discharge, Neck: Negative for injury, pain, and swelling, Cardiovascular: Negative for chest pain, palpitations, and edema, Respiratory: Negative for shortness of breath, cough, wheezing, and pleuritic chest pain, Back: Negative for injury and pain, MS/Extremity: Negative for injury and deformity, Skin: Negative for injury, rash, and discoloration, Neuro: Negative for headache, weakness, numbness, tingling, and seizure, Psych: Negative for depression, anxiety, suicide ideation, homicidal ideation, and hallucinations, Allergy/Immunology: Negative for hives, rash, and allergies, Endocrine: Negative for neck swelling, polydipsia, polyuria, polyphagia, and marked weight changes, Hematologic/Lymphatic: Negative for swollen nodes, abnormal bleeding, and unusual bruising, 17:41 Abdomen/GI: Positive for abdominal pain, of the suprapubic area, 17:41 : Positive for difficulty urinating, nurses could not pass lang, when tried blood present, Exam: 17:41 Constitutional: This is a well developed, well nourished patient who is awake, alert, amie and in no acute distress. Head/Face: Normocephalic, atraumatic. Eyes: Pupils equal round and reactive to light, extra-ocular motions intact. Lids and lashes normal. Conjunctiva and sclera are non-icteric and not injected. Cornea within normal limits. Periorbital areas with no swelling, redness, or edema. ENT: Nares patent. No nasal discharge, no septal abnormalities noted. Tympanic membranes are normal and external auditory canals are clear. Oropharynx with no redness, swelling, or masses, exudates, or evidence of obstruction, uvula midline. Mucous membranes moist. Neck: Trachea midline, no thyromegaly or masses palpated, and no cervical lymphadenopathy. Supple, full range of motion without nuchal rigidity, or vertebral point tenderness. No Meningismus. Chest/axilla: Normal chest wall appearance and motion. Nontender with no deformity. No lesions are appreciated. Cardiovascular: Regular rate and rhythm with a normal S1 and S2. No gallops, murmurs, or rubs. Normal PMI, no JVD. No pulse deficits. Respiratory: Lungs have equal breath sounds bilaterally, clear to auscultation and percussion. No rales, rhonchi or wheezes noted. No increased work of breathing, no retractions or nasal flaring. Abdomen/GI: Soft, non-tender, with normal bowel sounds. No distension or tympany. No guarding or rebound. No evidence of tenderness throughout. Back: No spinal tenderness. No costovertebral tenderness. Full range of motion. Skin: Warm, dry with normal turgor. Normal color with no rashes, no lesions, and no evidence of cellulitis. MS/ Extremity: Pulses equal, no cyanosis. Neurovascular intact. Full, normal range of motion. Neuro: Awake and alert, GCS 15, oriented to person, place, time, and situation. Cranial nerves II-XII grossly intact. Motor strength 5/5 in all extremities. Sensory grossly intact. Cerebellar exam normal. Normal gait. Psych: Awake, alert, with orientation to person, place and time. Behavior, mood, and affect are within normal limits. 17:41 : CVA tenderness, is absent, Male external genitalia: normal, blood at meatus, cant pass, Vital Signs: 15:35 BP 179 / 91; Pulse 108; Resp 19; Temp 98.4(A); Pulse Ox 96% on R/A; Weight 64.5 kg; mo1 Height 5 ft. 4 in. ; 16:00 BP 161 / 84; Pulse 104; Resp 16; Pulse Ox 97% on R/A; me1 17:00 BP 120 / 70; Pulse 97; Resp 16; Pulse Ox 97% on R/A; me1 18:00 BP 162 / 83; Pulse 98; Resp 17; Pulse Ox 98% on R/A; mo1 15:35 Body Mass Index 24.41 (64.50 kg, 162.56 cm) mo1 [place] Coma Score: 17:41 Eye Response: spontaneous(4). Motor Response: obeys commands(6). Verbal Response: amie oriented(5). Total: 15. Procedures: 18:03 Lang cath inserted by myself - 18 Fr. Urine output = 600 ml's. Patient tolerated well. [facility] MDM: 15:46 Patient medically screened. [facility] 17:43 Data reviewed: vital signs, nurses notes, lab test result(s), CBC, electrolytes, [facility] hepatic panel, urinalysis. Care significantly affected by the following chronic conditions: Hypertension, arf, aphasia, bph, depression,anxiety. 09/23 15:46 Order name: CBC with Diff; Complete Time: 17:38 [facility] 09/23 15:46 Order name: Comprehensive Metabolic Panel; Complete Time: 17:38 [facility] 09/23 15:46 Order name: Urinalysis w/ reflexes; Complete Time: 17:38 [facility] 09/23 17:26 Order name: Urine Culture EDMS 09/23 15:46 Order name: Lang; Complete Time: 16:58 [facility] 09/23 15:46 Order name: Leg Bag; Complete Time: 18:17 amie Administered Medications: 16:58 Drug: NS 0.9% IV 1000 ml IV at 125 ml/hr continuous Route: IV; Rate: 125 ml/hr; [place] [facility] [place]; 18:01 Drug: Ciprofloxacin PO 500 mg PO once Route: PO; me1 18:17 Follow up: Response: No adverse reaction me1 Disposition Summary: 09/23/23 17:55 Discharge Ordered Notes: Location: Home [facility] Problem: new amie Symptoms: have improved amie Condition: Stable amie Diagnosis - UTI/ Urinary tract infection, site not specified amie - Hematuria, unspecified amie - Retention of urine, unspecified - 600 CC(09/23/23 18:04) amie Followup: amie - With: Private Physician - When: 2 - 3 days - Reason: Recheck today's complaints, Continuance of care, Re-evaluation by your physician Followup: amie - With: Louis Corcoran MD - When: 2 - 3 days - Reason: Recheck today's complaints, Continuance of care, Re-evaluation by your physician Discharge Instructions: - Discharge Summary Sheet amie - Dysuria amie - Hematuria, Adult amie - Urinary Tract Infection, Adult amie - Urinary Tract Infection, Adult, [id number] amie - Acute Urinary Retention, Male, [id number] [facility] Forms: - Medication Reconciliation Form amie - Thank You Letter [facility] - Antibiotic Education amie - Prescription Opioid Use amie - Patient Portal Instructions [facility] - Leadership Thank You Letter [facility] Prescriptions: - Flomax 0.4 mg Oral capsule - take 1 capsule ORAL route every 24 hours; 20 capsule; Refills: 0, Product amie Selection Permitted - Cipro 250 mg Oral Tablet - take 2 tablets ORAL route every 12 hours; 20 tablet; Refills: 0, Product amie Selection Permitted Signatures: Dispatcher [employer] Clarence De La Cruz MD MD cha Eddleman, Michelle, RN RN me1 Corrections: (The following items were deleted from the chart) 18:04 17:55 Retention of urine, unspecified [facility]
[2023-09-23] MEDS ORDERED: CIPROFLOXACIN HCL 500 MG TAB ONE ×2 (18:12→18:13)
[2023-09-23 21:44] VITALS: TEMP 98.4
[2023-09-23 21:48] VITALS: BP 162/83; O2SAT 98
== END 2023-09-23 20:53 | disposition home or self-care (01) ==
LOC: ER 15:15
DX: N39.0 Urinary tract infection, site not specified (principal); R31.9 Hematuria, unspecified
CPT/HCPCS: 87088; 85025; 81001; 87086; 36415; 80053; 51702; 99285; J7030